=== PATIENT | male | born 1935 | race Caucasian/White ===

== ENCOUNTER 2016-02-17 12:47 | Observation (INO) | payer OTHER ==
[~2016-02-17] VITALS: Ht 190.5 cm; Wt 135.4 kg
[~2016-02-17 12:47] MED LIST: AMLO-110 PO; ASPCH81X PO; ATOR-26 PO; CARV12.52 PO; ERGO1CAP35 PO; FURO80TA63 PO; LISI40TA PO; NVLGI7030 SC; POTA20TA16 PO; SPIR25TA PO; SUCR1TAB29 PO; TRAZ50TA35 PO; WARF10TA PO; ZOLP10TA PO
[2016-02-17] MEDS ORDERED: MIRT15TA3 PO (13:40)
[2016-02-17 13:51] LABS: BASO % 0.2 %; BASO ABS # 0.02 K/uL (0-0.2); COMPLETE YES; EOS % 1.5 %; IG% 0.2 %; LYMPH % 8.9 %; LYMPH ABS # 0.97 K/uL (1.2-3.4); MEAN CELL VOLUME 92.3 fL (80-100); MEAN CORPUSCULAR HEMOGLOBIN 30.8 pg (25-34); MEAN CORPUSCULAR HGB CONC 33.3 g/dl (32-36); MEAN PLATELET VOLUME 10.2 fL (7.4-10.4); MONO % 10.2 %; PLATELET COUNT 148 K/uL (130-400); WHITE BLOOD COUNT 10.91 K/uL (4.8-10.8)
--- NOTE | 2016-02-17 14:00 | EMERGENCY ROOM VISIT NOTE ---
ED Visit Note First contact with patient: 13:24 I have personally seen and evaluated the patient with the physician assistant food service director. I agree with the diagnostic/management decisions and have personally been involved in these decisions and agree with the diagnosis.
[2016-02-17 14:14] LABS: INR 1.8 (0.9-1.1); PARTIAL THROMBOPLASTIN RATIO 1.4; PROTHROMBIN TIME (PATIENT) 19.6 SECONDS (9.0-12.0)
--- NOTE | 2016-02-17 14:17 | DIAGNOSTIC IMAGING REPORT ---
CHEST ONE VIEW PORTABLE HISTORY: left arm/jaw pain COMPARISON: Chest 05/24/2012. FINDINGS: The heart remains moderately enlarged. There are poststernotomy changes. No pleural effusions. No pneumothorax. No focal lung consolidations to suggest pneumonia. Mild interstitial and vascular thickening consistent with developing pulmonary edema. IMPRESSION: Cardiomegaly with mild interstitial pulmonary edema. Electronically signed by: Bandar Belle M.D. 02/17/2016 2:15 PM
[2016-02-17 14:25] LABS: ALB/GLOB RATIO 0.8 (0.9-2); BUN/CREATININE RATIO 15.9 (10-20); CALCIUM 9.1 mg/dl (8.5-10.1); POTASSIUM 4.8 mmol/L (3.5-5.1)
[2016-02-17 15:09] LABS: CKMB/CK RATIO 1.8 (0-3.0)
--- NOTE | 2016-02-17 15:55 | DIAGNOSTIC IMAGING REPORT ---
LEFT SHOULDER MIN 2 VIEWS ROUTINE CLINICAL HISTORY: Left shoulder pain. COMPARISON: None FINDINGS: Incidental note is made of median sternotomy wires and mediastinal surgical clips. Alignment of the left shoulder is anatomic. There is no acute fracture. There is mild glenohumeral joint arthritis and moderate AC joint arthritis. IMPRESSION: 1. No acute fracture or dislocation of the left shoulder. 2. Moderate AC joint arthritis and mild glenohumeral joint arthritis. Electronically signed by: Nikko Mathur M.D. 02/17/2016 3:53 PM
--- NOTE | 2016-02-17 15:55 | DIAGNOSTIC IMAGING REPORT ---
RIGHT HIP UNILATERAL 2 VIEWS CLINICAL HISTORY: right hip pain Right pain COMPARISON: None. DISCUSSION: Considerable degenerative change with virtual complete loss right hip joint space. Sclerosis of the articular services. Potential slightly impacted subcapital fracture versus artifact. No evidence for acetabular protrusion. There is no evidence for soft tissue swelling. IMPRESSION: Artifact versus slightly impacted subcapital fracture. Degenerative change. CT study is suggested as follow-up. Electronically signed by: Andrew Cherry M.D. 02/17/2016 3:53 PM
[2016-02-17] MEDS ORDERED: NITROGLYCERIN 0.4 MG SL PER TAB CHARGE SL PRN (16:00)
[2016-02-17] MEDS ORDERED: GLUCOSE 10 TABS/TUBE PO PRN ×2 (16:00→17:00)
[2016-02-17] MEDS ORDERED: GLUCAGON FOR INJ 1 MG VIAL SQ PRN ×2 (16:00→17:00)
[2016-02-17] MEDS ORDERED: GLUCOSE 40% GEL 15 GM TUBE PO PRN ×2 (16:00→17:00)
[2016-02-17] MEDS ORDERED: ONDANSETRON INJ 2 MG/ML 2 ML VIAL IV PRN (16:00)
[2016-02-17] MEDS ORDERED: ACETAMINOPHEN 325 MG TAB PO PRN (16:00)
[2016-02-17] MEDS ORDERED: DEXTROSE 50% 50 ML SYR IV PRN ×2 (16:00→17:00)
[2016-02-17] MEDS ORDERED: ACETAMINOPHEN 325 MG TAB ONE (16:09)
[2016-02-17] MEDS ORDERED: PHARMACY GLYCEMIC MGMT CONSULT PRN (16:15)
[2016-02-17] MEDS ORDERED: TRAMADOL HCL 50 MG TAB PO PRN (16:30)
[2016-02-17] MEDS ORDERED: LIDODERM (LIDOCAINE) PATCH 5% TD STA (16:53)
--- NOTE | 2016-02-17 16:56 | EMERGENCY ROOM VISIT NOTE ---
History First contact with patient: 13:24 Chief Complaint: CARDIAC ASSESSMENT Stated Complaint: PAIN ALL OVER Nursing Triage Summary: c/o pain in the left arm, left jaw times a few days denies chest pain, additional pain in the right hip pt hx of alycia bypass a-fib denies sob other then his normal History of Present Illness The patient is a 80 year old male who presents to the Emergency Room with complaints of jaw, arm and hip pain. The patient reports that he has had a right hip pain for a few weeks. He has been able to walk on the hip but states there has been imagining pain when he walks. He does report that he also has bad knees. Most recently, the patient has developed pain in his left side over the past 2 days. He reports that he has had pain in his left jaw, left shoulder and radiating down the left arm. He reports that he feels his arm is weak secondary to the pain. The pain began suddenly 2 days ago. The pain seems to be worse at night when he is trying to sleep. He denies any chest pain , back pain, abdominal pain, nausea or vomiting. He denies any shortness of breath. He denies any numbness. The patient has a history of a 5 vessel coronary bypass. He is a diabetic. He has a history of atrial fibrillation and is on Coumadin. Review of Systems A complete 10-point Review of Systems was discussed with the patient, with pertinent positives and negatives listed in the History of Present Illness. All remaining Review of Systems questions can be considered negative unless otherwise specified. 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 Family History No pertinent family history Social History Smoking Status: Former Smoker Marital Status: Housing Status: lives alone Occupation Status: retired Current/Historical Medications Scheduled Amlodipine (Norvasc), 5 MG PO QAM Aspirin (Aspirin Chewable), 81 MG PO QAM Atorvastatin (Lipitor), 80 MG PO QPM Carvedilol (Coreg), 12.5 MG PO BID Ergocalciferol (Vitamin D Cap), 50,000 INTER.UNIT PO MONTHLY Furosemide (Lasix), 40 MG PO QPM Furosemide (Lasix), 80 MG PO QAM Insulin Aspart 70/30 (Novolog Mix 70/30), 60 UNITS SC QID Lisinopril (Zestril), 40 MG PO QAM Mirtazapine (Remeron), 15 MG PO HS Omeprazole (Prilosec), 20 MG PO BID Potassium Ext Rel (Klor-Con), 20 MEQ PO BID Spironolactone (Aldactone), 0.5 TAB PO QAM Sucralfate (Carafate), 1 GM PO QID Trazodone Hcl (Trazodone), 50 MG PO HS Warfarin Sodium (Coumadin), 10 MG PO QPM Scheduled PRN Nitroglycerin (Nitrostat), 0.4 MG UT PRN PRN for Chest Pain Allergies Coded Allergies: NO KNOWN DRUG ALLERGIES (Verified Allergy, Unknown, ., 07/17/15) Physical Exam Vital Signs Date Time Temp Pulse Resp B/P Pulse Ox O2 Delivery O2 Flow Rate FiO2 02/17/16 16:10 134/84 02/17/16 15:52 81 27 02/17/16 15:22 84 23 94 02/17/16 15:01 145/75 02/17/16 14:52 72 23 95 02/17/16 14:22 70 23 93 02/17/16 14:17 80 26 92 02/17/16 13:47 82 26 93 02/17/16 13:17 86 20 95 02/17/16 13:05 93 02/17/16 13:05 36.7 79 24 139/85 93 Room Air 02/17/16 13:00 74 02/17/16 12:56 93 Room Air 02/17/16 12:51 139/85 Physical Exam VITALS: Vitals are noted on the nurse's note and reviewed by myself. Vital signs stable. GENERAL: This is an 80-year-old male, in no acute distress, nondiaphoretic, well -developed well-nourished. EYES: Pupils equal round and reactive to light and accommodation. Extraocular movements intact. NOSE: Patent, turbinates without inflammation or discharge. No sinus tenderness. MOUTH: Mucous membranes moist. Tonsils are not enlarged. Pharynx without erythema or exudate. NECK: Supple without nuchal rigidity. No cervical spine tenderness. HEART: Irregularly irregular rhythm. 2/6 systolic murmur. LUNGS: Clear to auscultation bilaterally without wheezes, rales or rhonchi. No retractions or accessory muscle use. ABDOMEN: Soft, nontender to palpation. MUSCULOSKELETAL: Tenderness to palpation of the right lateral hip. There is minimal tenderness over the anterior left shoulder. Strength 5/5 throughout. NEURO: Patient was alert and oriented to person place and time. Medical Decision & Procedures ER Provider Diagnostic Interpretation: CHEST ONE VIEW PORTABLE HISTORY: left arm/jaw pain COMPARISON: Chest 05/24/2012. FINDINGS: The heart remains moderately enlarged. There are poststernotomy changes. No pleural effusions. No pneumothorax. No focal lung consolidations to suggest pneumonia. Mild interstitial and vascular thickening consistent with developing pulmonary edema. IMPRESSION: Cardiomegaly with mild interstitial pulmonary edema. Laboratory Results 02/17/16 13:20 Red Blood Count 3.90, Mean Corpuscular Volume 92.3, Mean Corpuscular Hemoglobin 30.8, Mean Corpuscular Hemoglobin Concent 33.3, Mean Platelet Volume 10.2, Neutrophils (%) (Auto) 79.0, Lymphocytes (%) (Auto) 8.9, Monocytes (%) (Auto) 10.2, Eosinophils (%) (Auto) 1.5, Basophils (%) (Auto) 0.2, Neutrophils # (Auto ) 8.63, Lymphocytes # (Auto) 0.97, Monocytes # (Auto) 1.11, Eosinophils # (Auto ) 0.16, Basophils # (Auto) 0.02 02/17/16 13:20 Test 02/17/16 13:20 02/17/16 13:47 White Blood Count 10.91 K/uL (4.8-10.8) Red Blood Count 3.90 M/uL (4.7-6.1) Hemoglobin 12.0 g/dL (14.0-18.0) Hematocrit 36.0 % (42-52) Mean Corpuscular Volume 92.3 fL (80-100) Mean Corpuscular Hemoglobin 30.8 pg (25-34) Mean Corpuscular Hemoglobin Concent 33.3 g/dl (32-36) Platelet Count 148 K/uL (130-400) Mean Platelet Volume 10.2 fL (7.4-10.4) Neutrophils (%) (Auto) 79.0 % Lymphocytes (%) (Auto) 8.9 % Monocytes (%) (Auto) 10.2 % Eosinophils (%) (Auto) 1.5 % Basophils (%) (Auto) 0.2 % Neutrophils # (Auto) 8.63 K/uL (1.4-6.5) Lymphocytes # (Auto) 0.97 K/uL (1.2-3.4) Monocytes # (Auto) 1.11 K/uL (0.11-0.59) Eosinophils # (Auto) 0.16 K/uL (0-0.5) Basophils # (Auto) 0.02 K/uL (0-0.2) RDW Standard Deviation 50.9 fL (36.4-46.3) RDW Coefficient of Variation 15.1 % (11.5-14.5) Immature Granulocyte % (Auto) 0.2 % Immature Granulocyte # (Auto) 0.02 K/uL (0.00-0.02) Prothrombin Time 19.6 SECONDS (9.0-12.0) Prothromb Time International Ratio 1.8 (0.9-1.1) Activated Partial Thromboplast Time 37.5 SECONDS (21.0-31.0) Partial Thromboplastin Ratio 1.4 Anion Gap 10.0 mmol/L (3-11) Est Creatinine Clear Calc Drug Dose 44.0 ml/min Estimated GFR () 35.5 Estimated GFR (Non- 30.6 BUN/Creatinine Ratio 15.9 (10-20) Calcium Level 9.1 mg/dl (8.5-10.1) Total Bilirubin 0.8 mg/dl (0.2-1) Aspartate Amino Transf (AST/SGOT) 12 U/L (15-37) Alanine Aminotransferase (ALT/SGPT) 22 U/L (12-78) Alkaline Phosphatase 85 U/L (45-117) Total Creatine Kinase 44 U/L (39-308) Creatine Kinase MB 0.8 ng/ml (0.5-3.6) Creatine Kinase MB Ratio 1.8 (0-3.0) Total Protein 7.7 gm/dl (6.4-8.2) Albumin 3.4 gm/dl (3.4-5.0) Globulin 4.3 gm/dl (2.5-4.0) Albumin/Globulin Ratio 0.8 (0.9-2) Bedside Troponin I 0.010 ng/ml (0-0.045) Medications Administered Medications (Trade) Dose Ordered Sig/Aileen Route Start Time Stop Time Status Last Admin Dose Admin Acetaminophen (Tylenol Tab) 650 mg STK-MED ONCE .ROUTE 02/17/16 16:09 02/17/16 16:10 DC 02/17/16 16:09 650 MG ECG Indication: back/shoulder pain Rate (beats per minute): 72 Rhythm: atrial fibrillation Findings: no acute ischemic change Medical Decision Differential diagnosis includes acute coronary syndrome, pulmonary embolism, pneumothorax, pericarditis, myocarditis, endocarditis, anxiety, musculoskeletal pain, GERD, costochondritis, among others. The patient was evaluated as above. Labs were drawn and IV access was obtained. The patient was placed on the trench trimmer fine. Imaging studies were performed and read by radiology as above. The patient declined any analgesics. The patient was reassessed multiple times during their stay in the emergency department and remained in stable condition. The patient is an 80-year-old male with significant cardiac history who presents today complaining of left jaw and arm pain as well as right hip pain. EKG showed atrial fibrillation which is normal for the patient. Labs revealed a minimal leukocytosis and no significant anemia. Creatinine was elevated at 2.0 which appears to be baseline for the patient. Troponin was not elevated. Chest x-ray showed no acute process. I do feel that the patient's symptoms may be musculoskeletal in nature, however given his cardiac history I do feel it would be reasonable for him to be admitted overnight. I spoke with the patient , he did state that he would prefer to be admitted at this time. I ordered right hip x-ray and left shoulder x-ray which were pending at the time of admission. I spoke with Benrice Banerjee, [facility] hospitalist, who agreed to evaluate the patient. The patient was independently evaluated by Dr. Foley, ED attending physician, who agreed with my assessment and treatment plan. Impression Primary Impression: Jaw pain Departure Information Dispostion Admitted as an inpatient Condition GOOD Referrals Jennifer Ryder M.D. (PCP) Patient Instructions A Signature Page, [facility]
--- NOTE | 2016-02-17 17:00 | DIAGNOSTIC IMAGING REPORT ---
CT OF THE . CT DOSE: 1225.10 mGy.cm HISTORY: Pain R/O FRACTURE Right TECHNIQUE: Multiaxial CT images of the right hip were performed and reformatted in the sagittal and coronal plane without the use of contrast. COMPARISON: None. FINDINGS: Severe degenerative change of the right hip. Peripheral osteophytic reaction throughout. Virtual loss of the joint space with sclerosis of the articular services as well as acetabular services. No evidence for fracture. No evidence for acetabular protrusion. IMPRESSION: Severe degenerative change. No evidence for fracture. Electronically signed by: Andrew Cherry M.D. 02/17/2016 4:58 PM
[2016-02-17] MEDS ORDERED: IV FLUIDS COMPLETED PRN (19:45)
[2016-02-17 19:53] LABS: CKMB/CK RATIO 2.7 (0-3.0)
--- NOTE | 2016-02-17 20:42 | Pharmacy Progress Note ---
Glycemic Control Intl Consult Date of Service Feb 17, 2016. Scope Glycemic Pharmacist consulted by Dr Nolan on 02/17/16 for glycemic control and to write orders per [facility] inpatient glycemic control protocol Objective Weight (Kilograms): 137.000 Accuchecks BSG (last 24hrs): Test 02/17/16 13:20 Random Glucose 275 mg/dl (70-99) Laboratory Data (last 24hrs) Test 02/17/16 13:20 Anion Gap 10.0 mmol/L BUN/Creatinine Ratio 15.9 Blood Urea Nitrogen 32 mg/dl Creatinine 2.00 mg/dl Potassium Level 4.8 mmol/L Sodium Level 138 mmol/L White Blood Count 10.91 K/uL Red Blood Count 3.90 M/uL Hemoglobin 12.0 g/dL Hematocrit 36.0 % Mean Corpuscular Volume 92.3 fL Mean Corpuscular Hemoglobin 30.8 pg Mean Corpuscular Hemoglobin Concent 33.3 g/dl Platelet Count 148 K/uL Mean Platelet Volume 10.2 fL Neutrophils (%) (Auto) 79.0 % Lymphocytes (%) (Auto) 8.9 % Monocytes (%) (Auto) 10.2 % Eosinophils (%) (Auto) 1.5 % Basophils (%) (Auto) 0.2 % Neutrophils # (Auto) 8.63 K/uL Lymphocytes # (Auto) 0.97 K/uL Monocytes # (Auto) 1.11 K/uL Eosinophils # (Auto) 0.16 K/uL Basophils # (Auto) 0.02 K/uL HbA1c 01/21/16 Hgb A1c 6.7% per [facility] records Recent Pertinent Medications Outpatient Anti-diabetic Regimen: * Novolog 70%/30% 60 units achs per med rec; 60 units w/breakfast and supper, 50 units w/lunch, up to a maximum of 250 units/day (per [facility] records) * A1c = 6.7 % 01/21/16 The patient is currently receiving: * Basal insulin: none * Correctional Insulin: Novolog Correction per scale ACHS Goal Range: Low 140 mg/dL - High 180 mg/dL Correction Factor: 25 mg/dL/unit * Prandial insulin: Per carb ratio of 1 unit per 20 grams CHO consumed * Oral Agents: none Risk Factors for Insulin Resistance: * Steroids: no * Infection: no * Pressors: no * IVF: no * Recent Surgery: no * Diet: type 2 diabetic AHA thin liquids * Mechanical Ventilation: no Assessment & Plan ASSESSMENT: * ADA & AACE recommend a goal blood sugar range 140-180 mg/dl for the majority of critically ill & non-critically ill patients. However, more stringent targets may be selected in individual cases. * 80 yo type 2 diabetic well-controlled on large doses of Novolog Mix (up to 250 units/day). Will change to Lantus and Novolog, since it is more difficult to titrate mixed insulins. Will start basal insulin with ~20% less Lantus and adjust as needed, and add fairly tight Novolog correction and carb ratio due to his insulin resistance. PLAN FOR INPATIENT GLYCEMIC CONTROL: * Basal insulin with LANTUS 40 units SQ BID * Correctional Insulin with NOVOLOG per scale ACHS or Q6hrs while NPO * Goal Range: Low 120 mg/dL - High 160 mg/dL * Correction Factor: 10 mg/dL/unit * Nutritional / Prandial insulin per carb ratio of 1 unit per 5 grams CHO consumed * Please note that the plan above was derived based on current level of insulin resistance and hospital stress. These recommendations are appropriate for inpatient admission only. Plan of care upon discharge will need to be reassessed to avoid potential outpatient hypo/hyperglycemia. Thank you.
[2016-02-17 21:02] VITALS: Ht 190.5 cm; Wt 135.4 kg
--- NOTE | 2016-02-17 21:16 | DIAGNOSTIC IMAGING REPORT ---
MRI left shoulder LEFT UPPER EXT JOINT WITHOUT CLINICAL HISTORY: R/O FRACTURE, LIGAMENT/TENDON TEAR pain TECHNIQUE: Multiaxial MRI acquisition COMPARISON STUDY: None FINDINGS: Limited study technically due to patient motion. Small amount of fluid within the acromioclavicular joint. Moderate hypertrophic degenerative change of the acromioclavicular joint. No well-defined acute bony abnormality. Structures the rotator cuff indicate a probable full-thickness tear of the anterior and/or leading-edge of the supraspinatus. Biceps tendon appear to be intact within the bicipital groove. There is a small amount of fluid within the subacromial space. There are findings of soft tissue contusions appear to clavicle. No evidence for musculotendinous retraction. Glenoid labrum is grossly intact. IMPRESSION: 1. Limited study due to patient motion. 2. No acute bony abnormality. 3. Mild degenerative change throughout. 4. Hypertrophic change acromioclavicular joint with a mild amount of contained fluid. 5. Mild fluid within the subdeltoid space. 6. Probable focal tear anterior and/or leading-edge of the supraspinatus with evidence for additional mid substance tendinopathy. Electronically signed by: Andrew Cherry M.D. 02/17/2016 9:14 PM
[2016-02-17] MEDS: INSULIN ASPART 100 UNITS/ML 3 ML PEN SC SCH ×2 (21:24→21:34)
[2016-02-17] MEDS: SUCRALFATE 1 GM TAB PO SCH ×2 (21:24→21:27)
[2016-02-17] MEDS: WARFARIN SOD 5 MG TAB PO SCH (21:27)
[2016-02-17] MEDS: FUROSEMIDE 40 MG TAB PO SCH (21:28)
[2016-02-17] MEDS: POTASSIUM CHLORIDE 20 MEQ TABCR PO SCH (21:28)
[2016-02-17] MEDS: MIRTAZAPINE TAB 15 MG TAB PO SCH (21:28)
[2016-02-17] MEDS: CARVEDILOL 12.5 MG TAB PO SCH (21:28)
[2016-02-17] MEDS: PANTOprazole SOD 40 MG TAB PO SCH (21:30)
[2016-02-17] MEDS: INSULIN GLARGINE SOLOSTAR 100 UNITS/ML 3 ML PEN SC SCH (21:33)
--- NOTE | 2016-02-17 22:22 | History and Physical ---
History & Physical Date & Time of Service: Feb 17, 2016 at 22:14 Chief Complaint: Chest Pain Primary Care Physician: Jennifer Ryder M.D. History of Present Illness Source: patient, clinic records, hospital records 80 year old male with history of CAD/CABG, A fib, DM, HTN, CKD 3, and other problems noted below presenting with left shoulder and right hip pain x 2 days. Patient states that 2 nights ago, he woke up with severe left shoulder pain and right hip pain- to the point that he cannot move his left arm nor ambulate properly. Pain is sharp, stabbing, severe. He denies any history of falls, trauma, lifting. The pain persisted and he has not tried any medication yet. He then went to the ED for evaluation. At the ED, left shoulder xray did not show a fracture and right hip xray showed possible fracture. Cardiac markers negative and EKG did not show any signs of acute ischemia. On my exam ,patient is awake, alert, pleasant. States his pain is severe. NO chest pain, dyspnea, palpitations, dizziness, nausea. No other symptoms. 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 (4) Coronary artery bypass grafting Status: Resolved (5) Deep venous thrombosis Status: Resolved (6) Diabetes mellitus Status: Chronic (7) Hiatal hernia with gastroesophageal reflux disease Status: Chronic (8) History of - pulmonary embolus Status: Chronic (9) History of adenomatous polyp of colon Status: Chronic (10) Hyperlipidemia Status: Chronic (11) Pulmonary embolism Status: Resolved (12) Replacement of total knee joint Status: Resolved Family History No pertinent family history Social History Smoking Status: Former Smoker Marital Status: Occupational Status: retired Immunizations History of Influenza Vaccine: Yes Influenza Vaccine Date: Nov 10, 2014 History of Tetanus Vaccine?: Yes Tetanus Immunization Date: Sep 10, 2008 History of Pneumococcal: Yes Pneumococcal Date: Feb 27, 2014 History of Hepatitis B Vaccine: Unknown Multi-Drug Resistant Organisms History of MDRO: No Allergies Coded Allergies: NO KNOWN DRUG ALLERGIES (Verified Allergy, Unknown, ., 07/17/15) Home Medications Scheduled Amlodipine (Norvasc), 5 MG PO QAM Aspirin (Aspirin Chewable), 81 MG PO QAM Atorvastatin (Lipitor), 80 MG PO QPM Carvedilol (Coreg), 12.5 MG PO BID Ergocalciferol (Vitamin D Cap), 50,000 INTER.UNIT PO MONTHLY Furosemide (Lasix), 40 MG PO QPM Furosemide (Lasix), 80 MG PO QAM Insulin Aspart 70/30 (Novolog Mix 70/30), 60 UNITS SC QID Lisinopril (Zestril), 40 MG PO QAM Mirtazapine (Remeron), 15 MG PO HS Omeprazole (Prilosec), 20 MG PO BID Potassium Ext Rel (Klor-Con), 20 MEQ PO BID Spironolactone (Aldactone), 0.5 TAB PO QAM Sucralfate (Carafate), 1 GM PO QID Trazodone Hcl (Trazodone), 50 MG PO HS Warfarin Sodium (Coumadin), 10 MG PO QPM Scheduled PRN Nitroglycerin (Nitrostat), 0.4 MG UT PRN PRN for Chest Pain Review of Systems Constitutional- no fever; no weight loss Eyes- no acute visual changes ENT- no sinus drainage; no pharyngitis Pulmonary- no cough, no wheezing, no shortness of breath Cardiac- no chest pain, no palpitations, no orthopnea, no dependent edema GI- no nausea, no vomiting, no diarrhea, no melena, no hematochezia - no dysuria, no hematuria Musculoskeletal- (+) as noted above Derm- no rashes, no new skin lesions, no changing skin lesions Hematologic- no unusual bruising, no unusual bleeding Lymphatics- no adenopathy Endocrine- no polyuria or polydipsia; no heat or cold intolerance Neuro- no headaches, no focal neurologic symptoms Psych- no anxiety, no depression Physical Exam Vital Signs Date Time Temp Pulse Resp B/P Pulse Ox O2 Delivery O2 Flow Rate FiO2 02/17/16 21:02 Room Air 02/17/16 18:58 36.7 80 25 137/73 90 02/17/16 18:45 80 25 90 02/17/16 18:29 137/73 02/17/16 18:15 82 28 90 02/17/16 18:05 88 20 167/79 94 Room Air 02/17/16 18:04 167/79 02/17/16 17:58 106/79 02/17/16 17:45 88 29 02/17/16 17:30 127/53 02/17/16 17:15 76 23 93 02/17/16 17:10 86 24 146/70 95 Room Air 02/17/16 17:02 92 02/17/16 16:59 146/70 02/17/16 16:29 157/65 02/17/16 16:15 90 32 02/17/16 16:10 134/84 02/17/16 15:52 81 27 02/17/16 15:22 84 23 94 02/17/16 15:01 145/75 02/17/16 14:52 72 23 95 02/17/16 14:22 70 23 93 02/17/16 14:17 80 26 92 02/17/16 13:47 82 26 93 02/17/16 13:17 86 20 95 02/17/16 13:05 93 02/17/16 13:05 36.7 79 24 139/85 93 Room Air 02/17/16 13:00 74 02/17/16 12:56 93 Room Air 02/17/16 12:51 139/85 General Appearance: WD/WN, no apparent distress Head: normocephalic, atraumatic Eyes: normal inspection, PERRL, EOMI, sclerae normal ENT: normal ENT inspection, hearing grossly normal, TMs normal, pharynx normal Neck: supple, no adenopathy, thyroid normal, no JVD, trachea midline Respiratory/Chest: chest non-tender, lungs clear, normal breath sounds, no respiratory distress, no accessory muscle use Cardiovascular: no JVD, no murmur, normal peripheral pulses, + irregularly irregular Abdomen/GI: normal bowel sounds, non tender, soft, no organomegaly Back: normal inspection, no CVA tenderness Extremities/Musculoskelatal: no pedal edema, + pertinent finding ((+) severe tenderness on the left shoulder, poor ROM due to pain, no swelling) Neurologic/Psych: crystal evaluator II-XII nml as tested, no motor/sensory deficits, alert, normal mood/affect, normal reflexes, oriented x 3 Skin: normal color, warm/dry, no rash Lymphatic: no adenopathy Diagnostics Laboratory Results Results Past 24 Hours Test 02/17/16 13:20 02/17/16 13:47 02/17/16 19:10 02/17/16 21:17 Range/Units White Blood Count 10.91 4.8-10.8 K/uL Red Blood Count 3.90 4.7-6.1 M/uL Hemoglobin 12.0 14.0-18.0 g/dL Hematocrit 36.0 42-52 % Mean Corpuscular Volume 92.3 80-100 fL Mean Corpuscular Hemoglobin 30.8 25-34 pg Mean Corpuscular Hemoglobin Concent 33.3 32-36 g/dl Platelet Count 148 130-400 K/uL Mean Platelet Volume 10.2 7.4-10.4 fL Neutrophils (%) (Auto) 79.0 % Lymphocytes (%) (Auto) 8.9 % Monocytes (%) (Auto) 10.2 % Eosinophils (%) (Auto) 1.5 % Basophils (%) (Auto) 0.2 % Neutrophils # (Auto) 8.63 1.4-6.5 K/uL Lymphocytes # (Auto) 0.97 1.2-3.4 K/uL Monocytes # (Auto) 1.11 0.11-0.59 K/uL Eosinophils # (Auto) 0.16 0-0.5 K/uL Basophils # (Auto) 0.02 0-0.2 K/uL RDW Standard Deviation 50.9 36.4-46.3 fL RDW Coefficient of Variation 15.1 11.5-14.5 % Immature Granulocyte % (Auto) 0.2 % Immature Granulocyte # (Auto) 0.02 0.00-0.02 K/uL Prothrombin Time 19.6 9.0-12.0 SECONDS Prothromb Time International Ratio 1.8 0.9-1.1 Activated Partial Thromboplast Time 37.5 21.0-31.0 SECONDS Partial Thromboplastin Ratio 1.4 Sodium Level 138 136-145 mmol/L Potassium Level 4.8 3.5-5.1 mmol/L Chloride Level 104 98-107 mmol/L Carbon Dioxide Level 24 21-32 mmol/L Anion Gap 10.0 3-11 mmol/L Blood Urea Nitrogen 32 7-18 mg/dl Creatinine 2.00 0.60-1.40 mg/dl Est Creatinine Clear Calc Drug Dose 44.0 ml/min Estimated GFR () 35.5 Estimated GFR (Non- 30.6 BUN/Creatinine Ratio 15.9 10-20 Random Glucose 275 70-99 mg/dl Calcium Level 9.1 8.5-10.1 mg/dl Total Bilirubin 0.8 0.2-1 mg/dl Aspartate Amino Transf (AST/SGOT) 12 15-37 U/L Alanine Aminotransferase (ALT/SGPT) 22 12-78 U/L Alkaline Phosphatase 85 45-117 U/L Total Creatine Kinase 44 48 39-308 U/L Creatine Kinase MB 0.8 1.3 0.5-3.6 ng/ml Creatine Kinase MB Ratio 1.8 2.7 0-3.0 Total Protein 7.7 6.4-8.2 gm/dl Albumin 3.4 3.4-5.0 gm/dl Globulin 4.3 2.5-4.0 gm/dl Albumin/Globulin Ratio 0.8 0.9-2 Bedside Troponin I 0.010 0-0.045 ng/ml Troponin I 0.075 0-0.045 ng/ml Bedside Glucose 195 70-99 mg/dl Diagnostic Radiology per H&P EKG a fib, HR 72, no signs of acute ischemia/infarct Impression Assessment and Plan 80 year old male with history of CAD/CABG, A fib, DM, HTN, CKD 3, and other problems noted below presenting with left shoulder and right hip pain x 2 days. LEFT SHOULDER AND RIGHT HIP PAIN check MRI and CT to r/o Fracture, Tears PRN Tramadol, Valier, Morphine Lidoderm patch Ortho Consult PT/OT HISTORY OF CAD/CABG check cardiac markers echo continue Co reg, Lisinopril, Aspirin, Coumadin A FIB continue Co reg, Coumadin DM ISS Glycemic consult HTN continue Amlodipine CKD 3 stable SHAUNA on CPAP HISTORY OF PE on coumadin DVT prophylaxis on coumadin FULL CODE Disposition pending Advanced Directives Existing Advance Directive: No Existing Living Will: No Existing Power of Inspector Purchased Parts: No VTE Prophylaxis VTE Risk Assessment Done? Y/N: Yes Risk Level: Moderate
[2016-02-17 23:10] VITALS: BP 125/68; PULSE 77; TEMP 37.7; O2SAT 95
[2016-02-18] VITALS (9 sets, daily range): BP systolic 84–154; BP diastolic 50–79; PULSE 62–83; TEMP 36.7–37.7; O2SAT 93–94
[2016-02-18 01:49] LABS: CKMB/CK RATIO 3.3 (0-3.0)
[2016-02-18] MEDS: HYDROCODONE/ACETAMOPHEN 5/325MG TAB PO PRN ×2 (02:11→09:00)
[2016-02-18 07:32] LABS: BASO % 0.3 %; BASO ABS # 0.03 K/uL (0-0.2); COMPLETE YES; HEMATOCRIT 35.5 % (42-52); IG% 0.1 %; LYMPH % 9.3 %; LYMPH ABS # 0.91 K/uL (1.2-3.4); MEAN CORPUSCULAR HEMOGLOBIN 31.6 pg (25-34); MEAN CORPUSCULAR HGB CONC 34.4 g/dl (32-36); MEAN PLATELET VOLUME 10.2 fL (7.4-10.4); MONO % 14.8 %; NEUT % 73.5 %; PLATELET COUNT 141 K/uL (130-400); RED BLOOD COUNT 3.86 M/uL (4.7-6.1); WHITE BLOOD COUNT 9.81 K/uL (4.8-10.8)
[2016-02-18 07:43] LABS: INR 1.5 (0.9-1.1); PROTHROMBIN TIME (PATIENT) 16.1 SECONDS (9.0-12.0)
[2016-02-18] MEDS ORDERED: PERFLUTREN LIPID MICROSPHERE (DEFINITY) IV ONE (07:51)
[2016-02-18 07:59] LABS: ESTIMATED AVERAGE GLUCOSE 148 mg/dl; HA1C FLAG Normal (Normal)
[2016-02-18 08:05] LABS: BUN/CREATININE RATIO 17.4 (10-20); CALCIUM 8.8 mg/dl (8.5-10.1); CREATININE 1.8 mg/dl (0.60-1.40); MAGNESIUM 2.3 mg/dl (1.8-2.4); POTASSIUM 4.3 mmol/L (3.5-5.1)
[2016-02-18] MEDS: SPIRONOLACTONE 25 MG TAB PO SCH (08:33)
[2016-02-18] MEDS: CARVEDILOL 12.5 MG TAB PO SCH ×2 (08:33→19:45)
[2016-02-18] MEDS: POTASSIUM CHLORIDE 20 MEQ TABCR PO SCH ×2 (08:33→19:46)
[2016-02-18] MEDS: SUCRALFATE 1 GM TAB PO SCH ×4 (08:33→19:45)
[2016-02-18] MEDS: ASPIRIN 81 MG ECTAB PO SCH (08:33)
[2016-02-18] MEDS: AMLODIPINE BESYLATE 5 MG TAB PO SCH (08:33)
[2016-02-18] MEDS: FUROSEMIDE 80 MG TAB PO SCH (08:33)
[2016-02-18] MEDS: PANTOprazole SOD 40 MG TAB PO SCH ×2 (08:33→19:46)
[2016-02-18] MEDS: LISINOPRIL 40 MG TAB PO SCH (08:34)
[2016-02-18] MEDS: INSULIN ASPART 100 UNITS/ML 3 ML PEN SC SCH ×4 (08:36→21:10)
[2016-02-18] MEDS: INSULIN GLARGINE SOLOSTAR 100 UNITS/ML 3 ML PEN SC SCH ×2 (08:37→21:11)
[2016-02-18] MEDS: LIDODERM (LIDOCAINE) PATCH 5% TD SCH (09:00)
[2016-02-18 09:37] LABS: CKMB/CK RATIO 1.9 (0-3.0)
[2016-02-18] MEDS ORDERED: TRIAMCINOLONE ACET 40 MG/ML VIAL IA SCH (11:00)
[2016-02-18] MEDS ORDERED: BUPIVACAINE 0.5 % 5 MG/1 ML MPF 30ML VIAL INFIL SCH (11:00)
[2016-02-18] MEDS ORDERED: KETOROLAC TROMETHAMINE 15 MG/ML VIAL IV. PRN (11:00)
--- NOTE | 2016-02-18 11:26 | ORTHOPEDIC CONSULTATION ---
DATE OF CONSULTATION: 02/18/2016 DATE OF CONSULTATION: 02/18/2016. CHIEF COMPLAINT: From an orthopedic standpoint of left shoulder pain. SECONDARY COMPLAINT: Right hip pain. HISTORY OF PRESENT ILLNESS: Dong is a delightful young gentleman 80 years of age, admitted on 02/17/2016 for chief complaint of chest pain associated left shoulder pain. Two nights ago, he woke up with significant pain with left shoulder, right hip and cannot move this arm, he could not ambulate properly. He was brought via emergency transport to the Emergency Room for evaluation and treatment. He denied any fevers, sweats, chills, falls, trauma, lifting, just persistent unexplained pain. He was seen in the ER, x-rays were obtained demonstrating some degenerative changes of the right hip, CT scan demonstrated more degenerative changes in the right hip but no fracture of shoulder, fairly benign except for some AC joint pain. He is alert, oriented, pleasant gentleman. I think I know him from years and years ago with his children. PAST MEDICAL HISTORY: AFib, hypertension, coronary bypass surgery, DVT, diabetes, hiatal hernia, pulmonary embolus and hyperlipidemia. SOCIAL HISTORY: He is a former smoker, retired. IMMUNIZATIONS: Up to date. ALLERGIES: None known. MEDICATIONS: Scheduled are numerous, they are reviewed. They are not dictated upon. PHYSICAL EXAMINATION: GENERAL: On examination, he is alert, oriented, he is eating. He has difficulty with his left shoulder. He is not as painful as he was yesterday. Seems like it is under control. VITAL SIGNS: Blood pressure 130/80, pulse of 80, temperature 36.7. HEAD, EYES, EARS, NOSE, AND THROAT: Pupils react to light and accommodation. Ears, nose, and throat clear. CHEST: Clear. Normal breath sounds, no distress. CARDIAC: Positive for irregular heart beat. ABDOMEN: Soft, nontender. EXTREMITIES: Demonstrate no edema, some tenderness, decreased range of motion of the left shoulder, tenderness with palpation left shoulder. No significant swelling, no apprehension, no instability. The right hip demonstrates decreased range of motion as well and pain. LABORATORY WORK: Demonstrates white cell count of 10.9, which is essentially normal. Hemoglobin 12.0, glucose was 195. ASSESSMENT: Delightful gentleman with history of coronary artery disease, coronary artery bypass graft, Afib, diabetes, hypertension, obesity, other significant issues along with some in my opinion tendinitis about the left shoulder and some AC joint arthritis, left shoulder along with some arthritis right hip. DISPOSITION: At this point in time, it would be medical and pain management. I probably will inject him in his left shoulder, give him some symptomatic relief from this orthopedic standpoint can either be followed up as an outpatient. I see no acute surgical indications. No acute serious medical problems. We will follow him closely.
--- NOTE | 2016-02-18 11:53 | ORTHOPEDIC CONSULTATION REPORT ---
DATE OF CONSULTATION: 02/18/2016 PATIENT OF: Dr. Villalobos. CHIEF COMPLAINT: Left shoulder pain. HISTORY OF PRESENT ILLNESS: This 80-year-old white male presented through the ED yesterday afternoon with complaints of left shoulder pain. He had a cardiac workup which was unremarkable. He has known atrial fibrillation. Because of the left shoulder pain and questionable radiating to the jaw, he was admitted for observation. The patient states that he has had left shoulder pain for the last 3 days. No specific injury. He denies any falls. Pain is worse with any-attempted motion. He does get night pain. The patient has a history of right total shoulder arthroplasty and did very well with this. He feels it is the same on his left. The patient is a diabetic. He states he had an appointment to see Dr. Sanon today, but because of the hospital admission, he will miss that appointment. Due to insurance reasons, he switched orthopedic practices. He denies any numbness or tingling. He points to the shoulder as his area of discomfort. PAST MEDICAL HISTORY: Significant for atrial fibrillation, hypertension, kidney stones, history of DVT, diabetes, hiatal hernia with GERD, history of PE, history of colon polyps, elevated lipids, and osteoarthritis. PREVIOUS SURGERIES: Total knee arthroplasty, total shoulder arthroplasty, and coronary artery bypass grafting. FAMILY HISTORY: Noncontributory. SOCIAL HISTORY: The patient is retired. . Lives alone. Former smoker. CURRENT MEDICATIONS: Norvasc 5 mg, aspirin 81 mg, Lipitor 80 mg, carvedilol 12.5 mg b.i.d., vitamin D monthly, Lasix 40 mg q.p.m., Lasix 80 mg q.a.m., NovoLog 70-30, insulin, lisinopril 40 mg, Remeron p.o. at bedtime, Prilosec 20 mg p.o. b.i.d., potassium 20 mEq p.o. b.i.d., spironolactone a half tablet p.o. q.a.m., Carafate 1 gram p.o. q.i.d., trazodone 50 mg p.o. at bedtime, Coumadin 10 mg p.o. daily. ALLERGIES: NKDA. REVIEW OF SYSTEMS: Significant for above-stated conditions, otherwise unremarkable. PHYSICAL EXAMINATION: GENERAL: Well-developed, well-nourished elderly white male, in no acute distress. Sitting in a chair. Alert and oriented. SKIN: Warm and dry with fair turgor. No rashes or lesions. No ecchymosis or erythema. No edema. MUSCULOSKELETAL: Left shoulder has no obvious asymmetry or deformity. He has focal pain with palpation, globally around the left shoulder. It is both anterior and posterior as well as over the deltoid. His worst pain is over the anterior glenohumeral joint. Passively, he will abduct to around 95 degrees and forward flex to around 95 degrees. Abduction is limited to around 70 degrees before onset of pain. Full internal rotation against his abdomen. He is able to put his hand on his hip. External rotation of about 10 degrees secondary to pain. No pain with palpation over the AC joint. Strength is 3/5 for resisted motion. Elbow exam is benign. NEUROLOGIC: Gross sensation is intact across the left arm via soft touch. Peripheral pulses are 2+. DATA: Radiographic imaging obtained yesterday shows no acute fracture or dislocation in the left shoulder. He has moderate AC joint arthritis and glenohumeral joint arthritis. MRI imaging of the shoulder was obtained by the medicine service last evening. He has mild degenerative changes throughout the shoulder. Rotator cuff tear is noted with tendinopathy. 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 PLAN: The patient was educated regarding today's findings. Conservative care measures were discussed. Option of cortisone injection was discussed. He would like to proceed. Risks and benefits have been discussed. The [facility] to discuss any further care. He may benefit from physical therapy as an outpatient and may ultimately require total joint replacement on this shoulder as well. CARRI
--- NOTE | 2016-02-18 12:21 | ECHOCARDIOGRAM REPORT ---
*NOTICE TO RECEIVING [employer] This information is strictly Confidential and protected under [place] law. [place] law prohibits you from making any further disclosure of this information unless further disclosure is expressly permitted by the written consent of the person to whom it pertains or is authorized by law. A general authorization for the release of medical or other information is not sufficient for this purpose. Hospital accepts no responsibility if the information is made available to any other person, INCLUDING THE PATIENT. Interpretation Summary * Name: ZAN SANCHEZ Study Date: 02/18/2016 08:26 AM BP: 84/50 mmHg * Patient Location: [facility]\S\[id number]\S\1 HR: 75 * : 1935 (M/d/yyyy) Gender: Male Height: 75 in * Age: 80 yrs Ethnicity: [place] Weight: 302 lb * Ordering Physician: Henri Nolan * Referring Physician: Self, Referred * Performed By: Cassandra Lopez RCS * * Reason For Study: CHEST PAIN * BSA: 2.6 m2 * -- Conclusions -- * No significant change compared to previous study. * Mildly dilated LV chamber size with mild concenttic LVH. * Moderately reduced LV systolic function, EF 40-45%. * The inferior and posterior maddox are severely hypokinetic at the base and midlevel. The remaining left * ventricular wall segments are borderline hypokinetic. * Grade III diastolic dysfunction (restrictive physiology). * Mild mitral regurgitattion. * Severe left atrial enlargement. Procedure Details * A complete two-dimensional transthoracic echocardiogram was performed (2D, M-mode, Doppler and color flow Doppler). * A contrast injection of Definity was performed to improve assessment of LV function. * Contrast was injected into an intravenous site in the left arm. * One vial of Definity ultrasound contrast was diluted in normal saline to a total volume of 10 ml. A total of '2' ml of solution was administered during imaging. * Lot # [id number] of Definity utilized for procedure. * Expiration date 1 JUL 30. * The attending nurse who injected the contrast agent was SUSAN ANDERS, RN. Left Ventricle * The left ventricle is mildly dilated. * There is mild concentric left ventricular hypertrophy. * Left ventricular systolic function is moderately reduced. * Ejection Fraction = 40-45%. * The inferior and posterior maddox are severely hypokinetic at the base and midlevel. The remaining left ventricular wall segments are borderline hypokinetic. Right Ventricle * The right ventricular cavity size is enlarged (proximal parasternal long axis right ventricular outflow tract dimension >3.3 cm). * The right ventricular systolic function is mildly reduced. Atria * The left atrium is severely dilated. * Right atrium not well visualized. * There is no evidence of atrial septal defect, but resolution does not allow assessment for a patent foramen ovale. Mitral Valve * The mitral valve anatomy is normal. * There is no mitral valve stenosis. * There is mild mitral regurgitation. Tricuspid Valve * The tricuspid valve is normal in structure and function. Aortic Valve * The aortic valve is not well visualized. * No hemodynamically significant valvular aortic stenosis. * There is no significant aortic regurgitation. Pulmonic Valve * The pulmonary valve is not well seen, but the Doppler examination is normal without significant regurgitation or stenosis. Great Vessels * Mild aortic root dilatation. Pericardium/Pleural * There is no pericardial effusion. Left Ventricular Diastolic Function * Diastolic dysfunction, Grade III (restrictive pattern), consistent with markedly increased left atrial pressure. MMode 2D Measurements and Calculations IVSd 1.3 cm IVSs 1.6 cm LVIDd 5.5 cm LVIDs 4.5 cm LVPWd 1.5 cm LVPWs 1.5 cm IVS/LVPW 0.89 FS 17.3 % EDV(Teich) 144.5 ml ESV(Teich) 92.8 ml EF(Teich) 35.8 % EDV(cubed) 162.1 ml ESV(cubed) 91.6 ml EF(cubed) 43.5 % % IVS thick 19.6 % % LVPW thick 4.2 % LV mass(C)d 334.8 grams LV mass(C)dI 128.0 grams/m\S\2 LV mass(C)s 295.2 grams LV mass(C)sI 112.9 grams/m\S\2 SV(Teich) 51.7 ml SI(Teich) 19.8 ml/m\S\2 SV(cubed) 70.5 ml SI(cubed) 27.0 ml/m\S\2 Ao root diam 4.2 cm Ao root area 13.7 cm\S\2 LA dimension 6.0 cm LA/Ao 1.4 LVOT diam 2.0 cm LVOT area 3.2 cm\S\2 Doppler Measurements and Calculations MV E max carrie 127.7 cm/sec MV P1/2t max carrie 134.2 cm/sec MV P1/2t 119.3 msec MVA(P1/2t) 1.8 cm\S\2 MV dec slope 329.4 cm/sec\S\2 MV dec time 0.20 sec Ao V2 max 130.5 cm/sec Ao max PG 6.8 mmHg Ao max PG (full) 4.3 mmHg BECKY(V,A) 1.9 cm\S\2 BECKY(V,D) 1.9 cm\S\2 LV V1 max PG 2.5 mmHg LV V1 max 79.3 cm/sec MR max carrie 540.8 cm/sec MR max PG 117.0 mmHg PA V2 max 98.9 cm/sec PA max PG 3.9 mmHg
--- NOTE | 2016-02-18 13:26 | Progress Note ---
Medicine Progress Note Date & Time of Visit: Feb 18, 2016 at 13:24. Subjective seen sitting up in bedside chair, pleasant states shoulder pain and hip pain is about the same no chest pain, dyspnea, nausea, dizziness, palpitations denies other symptoms Objective Last 8 Hrs Date Time Temp Pulse Resp B/P Pulse Ox O2 Delivery O2 Flow Rate FiO2 02/18/16 12:15 Room Air 02/18/16 11:16 37.1 69 20 115/64 93 Room Air 02/18/16 08:32 36.7 83 20 126/68 94 Room Air 02/18/16 07:45 Room Air 02/18/16 06:00 62 20 116/68 65 99/56 67 84/50 Physical Exam: General- oriented x 3,not in distress Eyes- anicteric Neck- no JVD Lungs- clear to auscultation bilaterally Heart- normal rate, irregularly irregular rhythm; no murmurs Abdomen- normal bowel sounds, soft, nontender Extremities- no pretibial edema, no calf tenderness Neuro- alert, oriented x 3; no gross deficits Skin- warm & dry Laboratory Results: Last 24 Hours Test 02/17/16 13:47 02/17/16 19:10 02/17/16 21:17 02/18/16 01:10 Bedside Troponin I 0.010 ng/ml Total Creatine Kinase 48 U/L 57 U/L Creatine Kinase MB 1.3 ng/ml 1.9 ng/ml Creatine Kinase MB Ratio 2.7 3.3 Troponin I 0.075 ng/ml 0.248 ng/ml Bedside Glucose 195 mg/dl Test 02/18/16 07:03 02/18/16 07:57 02/18/16 08:25 02/18/16 11:22 White Blood Count 9.81 K/uL Red Blood Count 3.86 M/uL Hemoglobin 12.2 g/dL Hematocrit 35.5 % Mean Corpuscular Volume 92.0 fL Mean Corpuscular Hemoglobin 31.6 pg Mean Corpuscular Hemoglobin Concent 34.4 g/dl Platelet Count 141 K/uL Mean Platelet Volume 10.2 fL Neutrophils (%) (Auto) 73.5 % Lymphocytes (%) (Auto) 9.3 % Monocytes (%) (Auto) 14.8 % Eosinophils (%) (Auto) 2.0 % Basophils (%) (Auto) 0.3 % Neutrophils # (Auto) 7.21 K/uL Lymphocytes # (Auto) 0.91 K/uL Monocytes # (Auto) 1.45 K/uL Eosinophils # (Auto) 0.20 K/uL Basophils # (Auto) 0.03 K/uL RDW Standard Deviation 49.7 fL RDW Coefficient of Variation 14.8 % Immature Granulocyte % (Auto) 0.1 % Immature Granulocyte # (Auto) 0.01 K/uL Prothrombin Time 16.1 SECONDS Prothromb Time International Ratio 1.5 Sodium Level 138 mmol/L Potassium Level 4.3 mmol/L Chloride Level 105 mmol/L Carbon Dioxide Level 23 mmol/L Anion Gap 10.0 mmol/L Blood Urea Nitrogen 31 mg/dl Creatinine 1.80 mg/dl Est Creatinine Clear Calc Drug Dose 49.3 ml/min Estimated GFR () 40.3 Estimated GFR (Non- 34.8 BUN/Creatinine Ratio 17.4 Random Glucose 154 mg/dl Estimated Average Glucose 148 mg/dl Hemoglobin A1c 6.8 % Calcium Level 8.8 mg/dl Magnesium Level 2.3 mg/dl Bedside Glucose 161 mg/dl 190 mg/dl Total Creatine Kinase 93 U/L Creatine Kinase MB 1.8 ng/ml Creatine Kinase MB Ratio 1.9 Troponin I 0.313 ng/ml Assessment & Plan 80 year old male with history of CAD/CABG, CHF, A fib, DM, HTN, CKD 3, and other problems noted below presenting with left shoulder and right hip pain x 2 days. LEFT SHOULDER AND RIGHT HIP PAIN check MRI and CT to r/o Fracture, Tears: (+) rotator cuff tear, no hip fracture - evaluated by Ortho service, appreciate the recommendations for possible Steroid Injection today - PRN Tramadol, [place], Morphine Lidoderm patch PT/OT HISTORY OF CAD/CABG check cardiac markers: mildly elevated troponin echo: no significant change from previous echo -- no cardiac symptoms check another set of CM at 2pm continue Co reg, Lisinopril, Aspirin, Coumadin A FIB continue Co reg, Coumadin DM ISS Glycemic consult HTN continue Amlodipine CKD 3 stable SHAUNA on CPAP HISTORY OF PE INR 1.5 bridge with lovenox continue coumadin DVT prophylaxis on coumadin FULL CODE Disposition pending needs pt/ot eval Current Inpatient Medications: Current Inpatient Medications Medications (Trade) Dose Ordered Sig/Aileen Route Start Time Stop Time Status Last Admin Dose Admin Acetaminophen (Tylenol Tab) 650 mg Q4H PRN PO 02/17/16 16:00 03/18/16 15:59 Ondansetron HCl (Zofran Inj) 4 mg Q6H PRN IV 02/17/16 16:00 03/18/16 15:59 Nitroglycerin (Nitrostat Tab) 0.4 mg UD PRN SL 02/17/16 16:00 03/18/16 15:59 Insulin Aspart (novoLOG ASPART) SLIDING SCALE If C... ACHS SC 02/17/16 16:00 03/18/16 15:59 02/18/16 12:18 10 UNITS Miscellaneous Information (Consult Glycemic Management Pharmacy) 1 ea UD PRN N/A 02/17/16 16:15 03/18/16 16:14 Tramadol HCl (Ultram Tab) 50 mg Q6H PRN PO 02/17/16 16:30 03/18/16 16:29 Acetaminophen/ Hydrocodone Bitart ([place] 5/325 Tab) 1 tab Q6H PRN PO 02/17/16 16:30 03/02/16 16:29 02/18/16 09:00 1 TAB Morphine Sulfate (MoRPHine SULFATE INJ) 3 mg Q4H PRN IV 02/17/16 16:30 03/02/16 16:29 Lidocaine (Lidoderm Patch 5%) 1 patch QAM TD 02/18/16 09:00 03/19/16 08:59 02/18/16 09:00 1 PATCH Miscellaneous (Remove Lidoderm Patch) 1 ea DAILY@21 N/A 02/17/16 21:00 03/18/16 20:59 Amlodipine Besylate (Norvasc Tab) 5 mg QAM PO 02/18/16 09:00 03/19/16 08:59 02/18/16 08:33 5 MG Aspirin (Ecotrin Tab) 81 mg QAM PO 02/18/16 09:00 03/19/16 08:59 02/18/16 08:33 81 MG Carvedilol (Coreg Tab) 12.5 mg BID PO 02/17/16 21:00 03/18/16 20:59 02/18/16 08:33 12.5 MG Furosemide (Lasix tab) 40 mg DAILY@1800 PO 02/17/16 18:00 03/18/16 17:59 02/17/16 21:28 40 MG Furosemide (Lasix tab) 80 mg DAILY@0800 PO 02/18/16 08:00 03/19/16 07:59 02/18/16 08:33 80 MG Lisinopril (Zestril Tab) 40 mg QAM PO 02/18/16 09:00 03/19/16 08:59 02/18/16 08:34 40 MG Mirtazapine (Remeron Tab) 15 mg HS PO 02/17/16 21:00 03/18/16 20:59 02/17/16 21:28 15 MG Potassium Chloride (Klor-Con Tab) 20 meq BID PO 02/17/16 21:00 03/18/16 20:59 02/18/16 08:33 20 MEQ Spironolactone (Aldactone Tab) 12.5 mg QAM PO 02/18/16 09:00 03/19/16 08:59 02/18/16 08:33 12.5 MG Sucralfate (Carafate Tab) 1 gm QID PO 02/17/16 17:00 03/18/16 16:59 02/18/16 12:17 1 GM Warfarin Sodium (Coumadin Tab) 10 mg SuTuWeThSa@1600 PO 02/17/16 18:05 03/18/16 18:04 02/17/16 21:27 10 MG Pantoprazole Sodium (Protonix Tab) 40 mg BID PO 02/17/16 21:00 03/18/16 20:59 02/18/16 08:33 40 MG Warfarin Sodium (Coumadin Tab) 5 mg MoFr@1600 PO 02/19/16 16:00 03/20/16 15:59 Glucose (Glucose 40% Gel) 15-30 GRAMS 15 GRAMS... UD PRN PO 02/17/16 17:00 03/18/16 16:59 Glucose (Glucose Chew Tab) 4-8 Tablets 4 Tabl... UD PRN PO 02/17/16 17:00 03/18/16 16:59 Dextrose (Dextrose 50% 50ML Syringe) 25-50ML OF 50% DW IV FOR... UD PRN IV 02/17/16 17:00 03/18/16 16:59 Glucagon (Glucagon Inj) 1 mg UD PRN SQ 02/17/16 17:00 03/18/16 16:59 Insulin Glargine (Lantus Solostar Pen) 40 unit BID SC 02/17/16 21:00 03/18/16 20:59 02/18/16 08:37 40 UNIT Miscellaneous (Iv Fluids Completed) 1 ea PRN PRN N/A 02/17/16 19:45 02/16/17 19:44 Ketorolac Tromethamine (Toradol Inj) 15 mg Q6H PRN IV. 02/18/16 11:00 02/23/16 10:59 Enoxaparin Sodium (Lovenox 1 Mg/Kg) 1 ea Q12H SQ 02/18/16 12:45 03/19/16 12:44 UNV
--- NOTE | 2016-02-18 13:49 | OPERATIVE REPORT ---
DATE OF OPERATION: 02/18/2016 PREPROCEDURE DIAGNOSIS: Acromioclavicular joint arthritis, left shoulder. POSTOPERATIVE DIAGNOSIS: Same. PROCEDURE: Include an injection left shoulder of Depo-Medrol and Marcaine. DESCRIPTION OF PROCEDURE: The patient was seen and examined at his bedside here at [facility] room 277. His left shoulder was prepped and draped sterile. I injected left shoulder under sterile technique with Depo-Medrol and Marcaine. He tolerated it well. The needle was withdrawn. A Band-Aid applied. The patient returned to his normal state here in the hospital. I attest to the content of the Intraoperative Record and any orders documented therein. Any exceptio ns are noted below.
[2016-02-18 14:39] LABS: CKMB/CK RATIO 2.1 (0-3.0)
[2016-02-18] MEDS: WARFARIN SOD 5 MG TAB PO SCH (16:00)
[2016-02-18] MEDS: ENOXAPARIN 150 MG/1ML SYR SQ SCH ×2 (16:15→21:11)
[2016-02-18] MEDS: FUROSEMIDE 40 MG TAB PO SCH (17:56)
[2016-02-18] MEDS: MIRTAZAPINE TAB 15 MG TAB PO SCH (19:46)
[2016-02-18] MEDS: MoRPHine SULFATE 4 MG/ML 1 ML CARP\\VIAL IV PRN (19:54)
[2016-02-19] VITALS (12 sets, daily range): BP systolic 119–144; BP diastolic 60–82; PULSE 60–74; TEMP 36.2–37.1; O2SAT 93–100
[2016-02-19 07:06] LABS: BASO % 0.1 %; BASO ABS # 0.01 K/uL (0-0.2); COMPLETE YES; EOS % 0.2 %; HEMATOCRIT 34.3 % (42-52); IG% 0.2 %; LYMPH ABS # 0.76 K/uL (1.2-3.4); MEAN CELL VOLUME 90.5 fL (80-100); MEAN CORPUSCULAR HEMOGLOBIN 30.9 pg (25-34); MEAN CORPUSCULAR HGB CONC 34.1 g/dl (32-36); NEUT % 83.5 %; PLATELET COUNT 161 K/uL (130-400); RED BLOOD COUNT 3.79 M/uL (4.7-6.1); WHITE BLOOD COUNT 10.92 K/uL (4.8-10.8)
[2016-02-19 07:13] LABS: INR 1.4 (0.9-1.1); PROTHROMBIN TIME (PATIENT) 15.5 SECONDS (9.0-12.0)
[2016-02-19] MEDS: SPIRONOLACTONE 25 MG TAB PO SCH (08:40)
[2016-02-19] MEDS: SUCRALFATE 1 GM TAB PO SCH ×4 (08:40→20:45)
[2016-02-19] MEDS: FUROSEMIDE 80 MG TAB PO SCH (08:40)
[2016-02-19] MEDS: CARVEDILOL 12.5 MG TAB PO SCH ×2 (08:41→20:47)
[2016-02-19] MEDS: POTASSIUM CHLORIDE 20 MEQ TABCR PO SCH ×2 (08:41→20:46)
[2016-02-19] MEDS: AMLODIPINE BESYLATE 5 MG TAB PO SCH (08:41)
[2016-02-19] MEDS: PANTOprazole SOD 40 MG TAB PO SCH ×2 (08:41→20:46)
[2016-02-19] MEDS: LISINOPRIL 40 MG TAB PO SCH (08:41)
[2016-02-19] MEDS: ASPIRIN 81 MG ECTAB PO SCH (08:41)
[2016-02-19] MEDS: LIDODERM (LIDOCAINE) PATCH 5% TD SCH (08:41)
[2016-02-19] MEDS: ENOXAPARIN 150 MG/1ML SYR SQ SCH ×2 (08:42→20:52)
[2016-02-19] MEDS: INSULIN ASPART 100 UNITS/ML 3 ML PEN SC SCH ×4 (08:45→20:51)
[2016-02-19] MEDS: INSULIN GLARGINE SOLOSTAR 100 UNITS/ML 3 ML PEN SC SCH ×2 (08:45→20:51)
[2016-02-19 10:47] LABS: BUN/CREATININE RATIO 20.3 (10-20); CALCIUM 8.8 mg/dl (8.5-10.1); MAGNESIUM 2.3 mg/dl (1.8-2.4); POTASSIUM 4.7 mmol/L (3.5-5.1)
[2016-02-19] MEDS: HYDROCODONE/ACETAMOPHEN 5/325MG TAB PO PRN (11:41)
--- NOTE | 2016-02-19 12:37 | Pharmacy Progress Note ---
Glycemic Control: Progress Nt Date of Service Feb 19, 2016. Scope Glycemic Pharmacist consulted by Dr Nolan on 02/17/16 for glycemic control and to write orders per [facility] inpatient glycemic control protocol. Objective Accuchecks BSG (last 24hrs): Test 02/18/16 16:27 02/18/16 20:42 02/19/16 07:32 02/19/16 09:45 Bedside Glucose 140 mg/dl (70-99) 171 mg/dl (70-99) 144 mg/dl (70-99) Random Glucose 212 mg/dl (70-99) Test 02/19/16 11:36 Bedside Glucose 175 mg/dl (70-99) Laboratory Data (last 24hrs) Test 02/19/16 06:40 02/19/16 09:45 White Blood Count 10.92 K/uL Red Blood Count 3.79 M/uL Hemoglobin 11.7 g/dL Hematocrit 34.3 % Mean Corpuscular Volume 90.5 fL Mean Corpuscular Hemoglobin 30.9 pg Mean Corpuscular Hemoglobin Concent 34.1 g/dl Platelet Count 161 K/uL Mean Platelet Volume 10.0 fL Neutrophils (%) (Auto) 83.5 % Lymphocytes (%) (Auto) 7.0 % Monocytes (%) (Auto) 9.0 % Eosinophils (%) (Auto) 0.2 % Basophils (%) (Auto) 0.1 % Neutrophils # (Auto) 9.13 K/uL Lymphocytes # (Auto) 0.76 K/uL Monocytes # (Auto) 0.98 K/uL Eosinophils # (Auto) 0.02 K/uL Basophils # (Auto) 0.01 K/uL Anion Gap 12.0 mmol/L BUN/Creatinine Ratio 20.3 Blood Urea Nitrogen 41 mg/dl Creatinine 2.00 mg/dl Potassium Level 4.7 mmol/L Sodium Level 135 mmol/L HbA1c: Test 02/18/16 07:03 Hemoglobin A1c 6.8 % (4.5-5.6) H Recent Pertinent Medications Outpatient Anti-diabetic Regimen: * NovoLog 70/30 pre-mixed insulin --> up to 250 units/day The patient is currently receiving: * Basal insulin: Lantus 40 units every 12 hours * Correctional Insulin: Novolog Correction per scale ACHS Goal Range: Low 120 mg/dL - High 160 mg/dL Correction Factor: 10 mg/dL/unit * Prandial insulin: Per carb ratio of 1 unit per 5 grams CHO consumed Risk Factors for Insulin Resistance: * Intra-articular Steroid injection 02/18/16 * Diet Assessment & Plan ASSESSMENT: * 80yo T2DM male with adequate outpatient control per recent A1c * Pt is maintained on very high outpatient dosing (up to 250units/day) of premixed basal:prandial insulin. Premixed insulin are not able to be dose titrated for acute situations/PO intake changes, therefore, pt was initiated on SQ basal bolus insulin regimen of Lantus + NovoLog * Patient has been receiving ~ 108 units of insulin per day with adequate control * BSGs ranging 140-190mg/dl over the past 24hrs * No changes need made to regimen at this time. * ADA & AACE recommend a goal blood sugar range 140-180 mg/dl for the majority of critically ill & non-critically ill patients. However, more stringent targets may be selected in individual cases. Will utilize more stringent goal range of 120-160mg/dl based on baseline tight glycemic control. PLAN FOR INPATIENT GLYCEMIC CONTROL: * Continue Basal insulin with LANTUS 40 units SQ BID * Administer 1/2 dose if BSG < 120 mg/dl * Correctional Insulin with NOVOLOG per scale ACHS or Q6hrs while NPO * Goal Range: Low 120 mg/dL - High 140 mg/dL * Correction Factor: 10 mg/dL/unit * Nutritional / Prandial insulin per carb ratio of 1 unit per 5 grams CHO consumed * Please note that the plan above was derived based on current level of insulin resistance and hospital stress. These recommendations are appropriate for inpatient admission only. Plan of care upon discharge will need to be reassessed to avoid potential outpatient hypo/hyperglycemia. Thank you.
[2016-02-19] MEDS: WARFARIN SOD 5 MG TAB PO SCH (17:13)
[2016-02-19] MEDS: FUROSEMIDE 40 MG TAB PO SCH (17:13)
--- NOTE | 2016-02-19 20:25 | Progress Note ---
Medicine Progress Note Date & Time of Visit: Feb 19, 2016 at 20:21. Subjective states he feels somewhat better today less shoulder pain after injection pain about the same on the right hip denies chest pain, dyspnea, dizziness, nausea no other symptoms Objective Last 8 Hrs Date Time Temp Pulse Resp B/P Pulse Ox O2 Delivery O2 Flow Rate FiO2 02/19/16 19:50 36.2 60 20 120/72 100 Room Air 02/19/16 16:00 94 Room Air 02/19/16 15:11 36.8 64 18 119/66 94 Room Air Physical Exam: General- oriented x 3,not in distress Eyes- anicteric Neck- no JVD Lungs- clear to auscultation bilaterally, no rales/wheeze Heart- normal rate, irregularly irregular rhythm; no murmurs Abdomen- normal bowel sounds, soft, nontender Extremities- no pretibial edema, no calf tenderness Neuro- alert, oriented x 3; no gross deficits Skin- warm & dry Laboratory Results: Last 24 Hours Test 02/18/16 20:42 02/19/16 06:40 02/19/16 07:32 02/19/16 09:45 Bedside Glucose 171 mg/dl 144 mg/dl White Blood Count 10.92 K/uL Red Blood Count 3.79 M/uL Hemoglobin 11.7 g/dL Hematocrit 34.3 % Mean Corpuscular Volume 90.5 fL Mean Corpuscular Hemoglobin 30.9 pg Mean Corpuscular Hemoglobin Concent 34.1 g/dl Platelet Count 161 K/uL Mean Platelet Volume 10.0 fL Neutrophils (%) (Auto) 83.5 % Lymphocytes (%) (Auto) 7.0 % Monocytes (%) (Auto) 9.0 % Eosinophils (%) (Auto) 0.2 % Basophils (%) (Auto) 0.1 % Neutrophils # (Auto) 9.13 K/uL Lymphocytes # (Auto) 0.76 K/uL Monocytes # (Auto) 0.98 K/uL Eosinophils # (Auto) 0.02 K/uL Basophils # (Auto) 0.01 K/uL RDW Standard Deviation 48.3 fL RDW Coefficient of Variation 14.7 % Immature Granulocyte % (Auto) 0.2 % Immature Granulocyte # (Auto) 0.02 K/uL Prothrombin Time 15.5 SECONDS Prothromb Time International Ratio 1.4 Sodium Level 135 mmol/L Potassium Level 4.7 mmol/L Chloride Level 101 mmol/L Carbon Dioxide Level 22 mmol/L Anion Gap 12.0 mmol/L Blood Urea Nitrogen 41 mg/dl Creatinine 2.00 mg/dl Est Creatinine Clear Calc Drug Dose 43.9 ml/min Estimated GFR () 35.5 Estimated GFR (Non- 30.6 BUN/Creatinine Ratio 20.3 Random Glucose 212 mg/dl Calcium Level 8.8 mg/dl Magnesium Level 2.3 mg/dl Test 02/19/16 11:36 02/19/16 16:22 Bedside Glucose 175 mg/dl 121 mg/dl Assessment & Plan 80 year old male with history of CAD/CABG, CHF, A fib, DM, HTN, CKD 3, and other problems noted below presenting with left shoulder and right hip pain x 2 days. LEFT SHOULDER AND RIGHT HIP PAIN MRI and CT to r/o Fracture, Tears: (+) rotator cuff tear, no hip fracture - evaluated by Ortho service, appreciate the recommendations s/p Steroid Injection 02/18/16 - PRN Tramadol, [place], Morphine Lidoderm patch PT/OT: recommend rehab bowel regimen ordered HISTORY OF CAD/CABG cardiac markers: mildly elevated troponin troponin stable at 0.2-0.3 echo: no significant change from previous echo -- no cardiac symptoms continue Co reg, Lisinopril, Aspirin, Coumadin A FIB continue Co reg, Coumadin DM ISS Glycemic consult HTN continue Amlodipine CKD 3 stable SHAUNA on CPAP HISTORY OF PE INR 1.4 bridge with lovenox additional 7.5mg coumadin today DVT prophylaxis on coumadin FULL CODE Disposition anticipate discharge to Rehab Current Inpatient Medications: Current Inpatient Medications Medications (Trade) Dose Ordered Sig/Aileen Route Start Time Stop Time Status Last Admin Dose Admin Acetaminophen (Tylenol Tab) 650 mg Q4H PRN PO 02/17/16 16:00 03/18/16 15:59 Ondansetron HCl (Zofran Inj) 4 mg Q6H PRN IV 02/17/16 16:00 03/18/16 15:59 Nitroglycerin (Nitrostat Tab) 0.4 mg UD PRN SL 02/17/16 16:00 03/18/16 15:59 Insulin Aspart (novoLOG ASPART) SLIDING SCALE If C... ACHS SC 02/17/16 16:00 03/18/16 15:59 02/19/16 17:17 10 UNITS Miscellaneous Information (Consult Glycemic Management Pharmacy) 1 ea UD PRN N/A 02/17/16 16:15 03/18/16 16:14 Tramadol HCl (Ultram Tab) 50 mg Q6H PRN PO 02/17/16 16:30 03/18/16 16:29 Acetaminophen/ Hydrocodone Bitart ([place] 5/325 Tab) 1 tab Q6H PRN PO 02/17/16 16:30 03/02/16 16:29 02/19/16 11:41 1 TAB Morphine Sulfate (MoRPHine SULFATE INJ) 3 mg Q4H PRN IV 02/17/16 16:30 03/02/16 16:29 02/18/16 19:54 3 MG Lidocaine (Lidoderm Patch 5%) 1 patch QAM TD 02/18/16 09:00 03/19/16 08:59 02/19/16 08:41 1 PATCH Miscellaneous (Remove Lidoderm Patch) 1 ea DAILY@21 N/A 02/17/16 21:00 03/18/16 20:59 Amlodipine Besylate (Norvasc Tab) 5 mg QAM PO 02/18/16 09:00 03/19/16 08:59 02/19/16 08:41 5 MG Aspirin (Ecotrin Tab) 81 mg QAM PO 02/18/16 09:00 03/19/16 08:59 02/19/16 08:41 81 MG Carvedilol (Coreg Tab) 12.5 mg BID PO 02/17/16 21:00 03/18/16 20:59 02/19/16 08:41 12.5 MG Furosemide (Lasix tab) 40 mg DAILY@1800 PO 02/17/16 18:00 03/18/16 17:59 02/19/16 17:13 40 MG Furosemide (Lasix tab) 80 mg DAILY@0800 PO 02/18/16 08:00 03/19/16 07:59 02/19/16 08:40 80 MG Lisinopril (Zestril Tab) 40 mg QAM PO 02/18/16 09:00 03/19/16 08:59 02/19/16 08:41 40 MG Mirtazapine (Remeron Tab) 15 mg HS PO 02/17/16 21:00 03/18/16 20:59 02/18/16 19:46 15 MG Potassium Chloride (Klor-Con Tab) 20 meq BID PO 02/17/16 21:00 03/18/16 20:59 02/19/16 08:41 20 MEQ Spironolactone (Aldactone Tab) 12.5 mg QAM PO 02/18/16 09:00 03/19/16 08:59 02/19/16 08:40 12.5 MG Sucralfate (Carafate Tab) 1 gm QID PO 02/17/16 17:00 03/18/16 16:59 02/19/16 17:13 1 GM Warfarin Sodium (Coumadin Tab) 10 mg SuTuWeThSa@1600 PO 02/17/16 18:05 03/18/16 18:04 02/18/16 16:00 10 MG Pantoprazole Sodium (Protonix Tab) 40 mg BID PO 02/17/16 21:00 03/18/16 20:59 02/19/16 08:41 40 MG Warfarin Sodium (Coumadin Tab) 5 mg MoFr@1600 PO 02/19/16 16:00 03/20/16 15:59 02/19/16 17:13 5 MG Glucose (Glucose 40% Gel) 15-30 GRAMS 15 GRAMS... UD PRN PO 02/17/16 17:00 03/18/16 16:59 Glucose (Glucose Chew Tab) 4-8 Tablets 4 Tabl... UD PRN PO 02/17/16 17:00 03/18/16 16:59 Dextrose (Dextrose 50% 50ML Syringe) 25-50ML OF 50% DW IV FOR... UD PRN IV 02/17/16 17:00 03/18/16 16:59 Glucagon (Glucagon Inj) 1 mg UD PRN SQ 02/17/16 17:00 03/18/16 16:59 Insulin Glargine (Lantus Solostar Pen) 40 unit BID SC 02/17/16 21:00 03/18/16 20:59 02/19/16 08:45 40 UNIT Miscellaneous (Iv Fluids Completed) 1 ea PRN PRN N/A 02/17/16 19:45 02/16/17 19:44 Enoxaparin Sodium (Lovenox Inj) 141 mg Q12@1000,2200 SQ 02/18/16 14:00 03/19/16 13:59 02/19/16 08:42 141 MG Warfarin Sodium (Coumadin Tab) 7.5 mg ONE PO 02/19/16 20:15 03/20/16 20:14 UNV
[2016-02-19] MEDS: MIRTAZAPINE TAB 15 MG TAB PO SCH (20:45)
[2016-02-19] MEDS ORDERED: WARFARIN SOD 7.5 MG TAB PO ONE (22:00)
[2016-02-20] VITALS (10 sets, daily range): BP systolic 130–170; BP diastolic 69–79; PULSE 54–78; TEMP 36.4–37; O2SAT 92–97
[2016-02-20 07:01] LABS: BASO % 0.1 %; BASO ABS # 0.01 K/uL (0-0.2); COMPLETE YES; EOS % 0.8 %; HEMATOCRIT 31.3 % (42-52); IG% 0.2 %; LYMPH % 9.1 %; LYMPH ABS # 0.75 K/uL (1.2-3.4); MEAN CELL VOLUME 90.2 fL (80-100); MEAN CORPUSCULAR HEMOGLOBIN 30.8 pg (25-34); MEAN CORPUSCULAR HGB CONC 34.2 g/dl (32-36); MEAN PLATELET VOLUME 10.1 fL (7.4-10.4); MONO % 8.5 %; NEUT % 81.3 %; PLATELET COUNT 167 K/uL (130-400); RED BLOOD COUNT 3.47 M/uL (4.7-6.1); WHITE BLOOD COUNT 8.25 K/uL (4.8-10.8)
[2016-02-20 07:13] LABS: INR 1.5 (0.9-1.1); PROTHROMBIN TIME (PATIENT) 15.9 SECONDS (9.0-12.0)
[2016-02-20 07:27] LABS: BUN/CREATININE RATIO 24.4 (10-20); CALCIUM 9.1 mg/dl (8.5-10.1); CREATININE 1.9 mg/dl (0.60-1.40); MAGNESIUM 2.5 mg/dl (1.8-2.4); POTASSIUM 4.7 mmol/L (3.5-5.1)
[2016-02-20] MEDS: INSULIN ASPART 100 UNITS/ML 3 ML PEN SC SCH ×4 (09:28→21:00)
[2016-02-20] MEDS: INSULIN GLARGINE SOLOSTAR 100 UNITS/ML 3 ML PEN SC SCH ×2 (09:29→21:33)
[2016-02-20] MEDS: ASPIRIN 81 MG ECTAB PO SCH (09:29)
[2016-02-20] MEDS: LISINOPRIL 40 MG TAB PO SCH (09:29)
[2016-02-20] MEDS: FUROSEMIDE 80 MG TAB PO SCH (09:29)
[2016-02-20] MEDS: AMLODIPINE BESYLATE 5 MG TAB PO SCH (09:29)
[2016-02-20] MEDS: CARVEDILOL 12.5 MG TAB PO SCH ×2 (09:30→21:23)
[2016-02-20] MEDS: POTASSIUM CHLORIDE 20 MEQ TABCR PO SCH ×2 (09:30→21:24)
[2016-02-20] MEDS: SUCRALFATE 1 GM TAB PO SCH ×4 (09:31→21:23)
[2016-02-20] MEDS: PANTOprazole SOD 40 MG TAB PO SCH ×2 (09:33→21:25)
[2016-02-20] MEDS: DOCUSATE SODIUM/SENNA 50/8.6MG TAB PO SCH (09:33)
[2016-02-20] MEDS: LIDODERM (LIDOCAINE) PATCH 5% TD SCH (09:34)
[2016-02-20] MEDS: SPIRONOLACTONE 25 MG TAB PO SCH (09:35)
[2016-02-20] MEDS: ENOXAPARIN 150 MG/1ML SYR SQ SCH ×2 (09:42→21:26)
--- NOTE | 2016-02-20 15:01 | Pharmacy Progress Note ---
Glycemic Control: Progress Nt Date of Service Feb 20, 2016. Scope Glycemic Pharmacist consulted for glycemic control and to write orders per [facility] inpatient glycemic control protocol. Objective Accuchecks BSG (last 24hrs): Test 02/19/16 16:22 02/19/16 20:07 02/20/16 06:05 02/20/16 07:39 Bedside Glucose 121 mg/dl (70-99) 171 mg/dl (70-99) 197 mg/dl (70-99) Random Glucose 180 mg/dl (70-99) Test 02/20/16 12:04 Bedside Glucose 167 mg/dl (70-99) Laboratory Data (last 24hrs) Test 02/20/16 06:05 Anion Gap 11.0 mmol/L BUN/Creatinine Ratio 24.4 Blood Urea Nitrogen 46 mg/dl Creatinine 1.90 mg/dl Potassium Level 4.7 mmol/L Sodium Level 136 mmol/L White Blood Count 8.25 K/uL Red Blood Count 3.47 M/uL Hemoglobin 10.7 g/dL Hematocrit 31.3 % Mean Corpuscular Volume 90.2 fL Mean Corpuscular Hemoglobin 30.8 pg Mean Corpuscular Hemoglobin Concent 34.2 g/dl Platelet Count 167 K/uL Mean Platelet Volume 10.1 fL Neutrophils (%) (Auto) 81.3 % Lymphocytes (%) (Auto) 9.1 % Monocytes (%) (Auto) 8.5 % Eosinophils (%) (Auto) 0.8 % Basophils (%) (Auto) 0.1 % Neutrophils # (Auto) 6.70 K/uL Lymphocytes # (Auto) 0.75 K/uL Monocytes # (Auto) 0.70 K/uL Eosinophils # (Auto) 0.07 K/uL Basophils # (Auto) 0.01 K/uL HbA1c: Test 02/18/16 07:03 Hemoglobin A1c 6.8 % (4.5-5.6) H Recent Pertinent Medications Outpatient Anti-diabetic Regimen: * NovoLog 70/30 pre-mixed insulin --> up to 250 units/day The patient is currently receiving: * Basal insulin: Lantus 40 units every 12 hours * Correctional Insulin: Novolog Correction per scale ACHS Goal Range: Low 120 mg/dL - High 160 mg/dL Correction Factor: 10 mg/dL/unit * Prandial insulin: Per carb ratio of 1 unit per 5 grams CHO consumed Risk Factors for Insulin Resistance: * Intra-articular Steroid injection 02/18/16 * Diet Assessment & Plan ASSESSMENT: * 80yo T2DM male with adequate outpatient control per recent A1c * Pt is maintained on very high outpatient dosing (up to 250units/day) of premixed basal:prandial insulin. Premixed insulin are not able to be dose titrated for acute situations/PO intake changes, therefore, pt was initiated on SQ basal bolus insulin regimen of Lantus + NovoLog * Patient has been receiving ~ 108-125 units of insulin per day with adequate control * BSGs ranging 121-197mg/dl over the past 24hrs * AM fasting BSG is slightly high at 198mg/dl --> unsure why as previous days fasting BSG has been in or near goal range with current Lantus dosing. Will increase dosing tomorrow if AM fasting BSG still elevated * Post-prandial BSGs elevated at lunch and HS --> will tighten CR * ADA & AACE recommend a goal blood sugar range 140-180 mg/dl for the majority of critically ill & non-critically ill patients. However, more stringent targets may be selected in individual cases. Will utilize more stringent goal range of 120-160mg/dl based on baseline tight glycemic control. PLAN FOR INPATIENT GLYCEMIC CONTROL: * Continue Basal insulin with LANTUS 40 units SQ BID * Administer 1/2 dose if BSG < 120 mg/dl * Correctional Insulin with NOVOLOG per scale ACHS or Q6hrs while NPO * Goal Range: Low 120 mg/dL - High 140 mg/dL * Correction Factor: 10 mg/dL/unit * Nutritional / Prandial insulin per carb ratio of 1 unit per 4 grams CHO consumed * Please note that the plan above was derived based on current level of insulin resistance and hospital stress. These recommendations are appropriate for inpatient admission only. Plan of care upon discharge will need to be reassessed to avoid potential outpatient hypo/hyperglycemia. Thank you.
[2016-02-20] MEDS: WARFARIN SOD 5 MG TAB PO SCH (17:01)
[2016-02-20] MEDS: FUROSEMIDE 40 MG TAB PO SCH (17:04)
--- NOTE | 2016-02-20 18:49 | Progress Note ---
Medicine Progress Note Date & Time of Visit: Feb 20, 2016 at 18:46. Subjective patient states his left shoulder feels stiff again today right hip pain about the same, still worse with ambulation no leg weakness or numbness otherwise, no other symptoms Objective Last 8 Hrs Date Time Temp Pulse Resp B/P Pulse Ox O2 Delivery O2 Flow Rate FiO2 02/20/16 15:57 36.6 73 18 135/71 96 Room Air 02/20/16 12:11 36.7 76 18 130/78 96 Room Air 02/20/16 12:00 Room Air Physical Exam: General- oriented x 3,not in distress Neck- no JVD Lungs- clear breath sounds bilaterally, no rales/wheeze Heart- normal rate, irregularly irregular rhythm; no murmurs Abdomen- normal bowel sounds, soft, nontender Extremities- no pretibial edema, no calf tenderness Neuro- alert, oriented x 3; no gross deficits Skin- warm & dry Laboratory Results: Last 24 Hours Test 02/19/16 20:07 02/20/16 06:05 02/20/16 07:39 02/20/16 12:04 Bedside Glucose 171 mg/dl 197 mg/dl 167 mg/dl White Blood Count 8.25 K/uL Red Blood Count 3.47 M/uL Hemoglobin 10.7 g/dL Hematocrit 31.3 % Mean Corpuscular Volume 90.2 fL Mean Corpuscular Hemoglobin 30.8 pg Mean Corpuscular Hemoglobin Concent 34.2 g/dl Platelet Count 167 K/uL Mean Platelet Volume 10.1 fL Neutrophils (%) (Auto) 81.3 % Lymphocytes (%) (Auto) 9.1 % Monocytes (%) (Auto) 8.5 % Eosinophils (%) (Auto) 0.8 % Basophils (%) (Auto) 0.1 % Neutrophils # (Auto) 6.70 K/uL Lymphocytes # (Auto) 0.75 K/uL Monocytes # (Auto) 0.70 K/uL Eosinophils # (Auto) 0.07 K/uL Basophils # (Auto) 0.01 K/uL RDW Standard Deviation 47.4 fL RDW Coefficient of Variation 14.4 % Immature Granulocyte % (Auto) 0.2 % Immature Granulocyte # (Auto) 0.02 K/uL Prothrombin Time 15.9 SECONDS Prothromb Time International Ratio 1.5 Sodium Level 136 mmol/L Potassium Level 4.7 mmol/L Chloride Level 102 mmol/L Carbon Dioxide Level 23 mmol/L Anion Gap 11.0 mmol/L Blood Urea Nitrogen 46 mg/dl Creatinine 1.90 mg/dl Est Creatinine Clear Calc Drug Dose 46.4 ml/min Estimated GFR () 37.7 Estimated GFR (Non- 32.6 BUN/Creatinine Ratio 24.4 Random Glucose 180 mg/dl Calcium Level 9.1 mg/dl Magnesium Level 2.5 mg/dl Test 02/20/16 16:44 Bedside Glucose 106 mg/dl Assessment & Plan 80 year old male with history of CAD/CABG, CHF, A fib, DM, HTN, CKD 3, and other problems noted below presenting with left shoulder and right hip pain x 2 days. LEFT SHOULDER AND RIGHT HIP PAIN MRI and CT to r/o Fracture, Tears: (+) rotator cuff tear, no hip fracture - evaluated by Ortho service, appreciate the recommendations s/p Steroid Injection 02/18/16 - PRN Tramadol, [place], Morphine Lidoderm patch PT/OT: recommend rehab bowel regimen ordered - improving slowly continue present management HISTORY OF CAD/CABG cardiac markers: mildly elevated troponin troponin stable at 0.2-0.3 echo: no significant change from previous echo -- no cardiac symptoms continue Co reg, Lisinopril, Aspirin, Coumadin A FIB continue Co reg, Coumadin DM ISS Glycemic consult HTN stable continue Amlodipine CKD 3 stable SHAUNA on CPAP HISTORY OF PE INR 1.5 bridge with lovenox continue coumadin DVT prophylaxis on coumadin FULL CODE Disposition anticipate discharge to Rehab Current Inpatient Medications: Current Inpatient Medications Medications (Trade) Dose Ordered Sig/Aileen Route Start Time Stop Time Status Last Admin Dose Admin Acetaminophen (Tylenol Tab) 650 mg Q4H PRN PO 02/17/16 16:00 03/18/16 15:59 Ondansetron HCl (Zofran Inj) 4 mg Q6H PRN IV 02/17/16 16:00 03/18/16 15:59 Nitroglycerin (Nitrostat Tab) 0.4 mg UD PRN SL 02/17/16 16:00 03/18/16 15:59 Insulin Aspart (novoLOG ASPART) SLIDING SCALE If C... ACHS SC 02/17/16 16:00 03/18/16 15:59 02/20/16 17:12 12 UNITS Miscellaneous Information (Consult Glycemic Management Pharmacy) 1 ea UD PRN N/A 02/17/16 16:15 03/18/16 16:14 Tramadol HCl (Ultram Tab) 50 mg Q6H PRN PO 02/17/16 16:30 03/18/16 16:29 Acetaminophen/ Hydrocodone Bitart ([place] 5/325 Tab) 1 tab Q6H PRN PO 02/17/16 16:30 03/02/16 16:29 02/19/16 11:41 1 TAB Morphine Sulfate (MoRPHine SULFATE INJ) 3 mg Q4H PRN IV 02/17/16 16:30 03/02/16 16:29 02/18/16 19:54 3 MG Lidocaine (Lidoderm Patch 5%) 1 patch QAM TD 02/18/16 09:00 03/19/16 08:59 02/20/16 09:34 1 PATCH Miscellaneous (Remove Lidoderm Patch) 1 ea DAILY@21 N/A 02/17/16 21:00 03/18/16 20:59 02/19/16 20:44 1 EA Amlodipine Besylate (Norvasc Tab) 5 mg QAM PO 02/18/16 09:00 03/19/16 08:59 02/20/16 09:29 5 MG Aspirin (Ecotrin Tab) 81 mg QAM PO 02/18/16 09:00 03/19/16 08:59 02/20/16 09:29 81 MG Carvedilol (Coreg Tab) 12.5 mg BID PO 02/17/16 21:00 03/18/16 20:59 02/20/16 09:30 12.5 MG Furosemide (Lasix tab) 40 mg DAILY@1800 PO 02/17/16 18:00 03/18/16 17:59 02/20/16 17:04 40 MG Furosemide (Lasix tab) 80 mg DAILY@0800 PO 02/18/16 08:00 03/19/16 07:59 02/20/16 09:29 80 MG Lisinopril (Zestril Tab) 40 mg QAM PO 02/18/16 09:00 03/19/16 08:59 02/20/16 09:29 40 MG Mirtazapine (Remeron Tab) 15 mg HS PO 02/17/16 21:00 03/18/16 20:59 02/19/16 20:45 15 MG Potassium Chloride (Klor-Con Tab) 20 meq BID PO 02/17/16 21:00 03/18/16 20:59 02/20/16 09:30 20 MEQ Spironolactone (Aldactone Tab) 12.5 mg QAM PO 02/18/16 09:00 03/19/16 08:59 02/20/16 09:35 12.5 MG Sucralfate (Carafate Tab) 1 gm QID PO 02/17/16 17:00 03/18/16 16:59 02/20/16 17:05 1 GM Warfarin Sodium (Coumadin Tab) 10 mg SuTuWeThSa@1600 PO 02/17/16 18:05 03/18/16 18:04 02/20/16 17:01 10 MG Pantoprazole Sodium (Protonix Tab) 40 mg BID PO 02/17/16 21:00 03/18/16 20:59 02/20/16 09:33 40 MG Warfarin Sodium (Coumadin Tab) 5 mg MoFr@1600 PO 02/19/16 16:00 03/20/16 15:59 02/19/16 17:13 5 MG Glucose (Glucose 40% Gel) 15-30 GRAMS 15 GRAMS... UD PRN PO 02/17/16 17:00 03/18/16 16:59 Glucose (Glucose Chew Tab) 4-8 Tablets 4 Tabl... UD PRN PO 02/17/16 17:00 03/18/16 16:59 Dextrose (Dextrose 50% 50ML Syringe) 25-50ML OF 50% DW IV FOR... UD PRN IV 02/17/16 17:00 03/18/16 16:59 Glucagon (Glucagon Inj) 1 mg UD PRN SQ 02/17/16 17:00 03/18/16 16:59 Insulin Glargine (Lantus Solostar Pen) 40 unit BID SC 02/17/16 21:00 03/18/16 20:59 02/20/16 09:29 40 UNIT Miscellaneous (Iv Fluids Completed) 1 ea PRN PRN N/A 02/17/16 19:45 02/16/17 19:44 Enoxaparin Sodium (Lovenox Inj) 141 mg Q12@1000,2200 SQ 02/18/16 14:00 03/19/16 13:59 02/20/16 09:42 141 MG Senna/Docusate Sodium (Senokot S Tab) 1 tab QAM PO 02/20/16 09:00 03/21/16 08:59 02/20/16 09:33 1 TAB
[2016-02-20] MEDS: MIRTAZAPINE TAB 15 MG TAB PO SCH (21:24)
[2016-02-20] MEDS: MoRPHine SULFATE 4 MG/ML 1 ML CARP\\VIAL IV PRN (21:40)
[2016-02-21] VITALS (7 sets, daily range): BP systolic 105–168; BP diastolic 55–86; PULSE 64–81; TEMP 36.5–37; O2SAT 95–98
[2016-02-21 07:04] LABS: BASO % 0.3 %; BASO ABS # 0.02 K/uL (0-0.2); COMPLETE YES; EOS % 2.1 %; HEMATOCRIT 33.3 % (42-52); IG% 0.1 %; LYMPH % 12.3 %; LYMPH ABS # 0.92 K/uL (1.2-3.4); MEAN CELL VOLUME 89.5 fL (80-100); MEAN CORPUSCULAR HEMOGLOBIN 30.9 pg (25-34); MEAN CORPUSCULAR HGB CONC 34.5 g/dl (32-36); MEAN PLATELET VOLUME 9.5 fL (7.4-10.4); MONO % 8.9 %; NEUT % 76.3 %; PLATELET COUNT 187 K/uL (130-400); RED BLOOD COUNT 3.72 M/uL (4.7-6.1); WHITE BLOOD COUNT 7.49 K/uL (4.8-10.8)
[2016-02-21 07:08] LABS: INR 1.7 (0.9-1.1); PROTHROMBIN TIME (PATIENT) 18.1 SECONDS (9.0-12.0)
[2016-02-21 07:31] LABS: BUN/CREATININE RATIO 29.1 (10-20); CREATININE 1.8 mg/dl (0.60-1.40); MAGNESIUM 2.5 mg/dl (1.8-2.4); POTASSIUM 4.5 mmol/L (3.5-5.1)
[2016-02-21] MEDS: DOCUSATE SODIUM/SENNA 50/8.6MG TAB PO SCH (08:32)
[2016-02-21] MEDS: SPIRONOLACTONE 25 MG TAB PO SCH (08:32)
[2016-02-21] MEDS: FUROSEMIDE 80 MG TAB PO SCH (08:32)
[2016-02-21] MEDS: PANTOprazole SOD 40 MG TAB PO SCH ×2 (08:32→21:12)
[2016-02-21] MEDS: LISINOPRIL 40 MG TAB PO SCH (08:32)
[2016-02-21] MEDS: SUCRALFATE 1 GM TAB PO SCH ×4 (08:34→21:10)
[2016-02-21] MEDS: ASPIRIN 81 MG ECTAB PO SCH (08:35)
[2016-02-21] MEDS: POTASSIUM CHLORIDE 20 MEQ TABCR PO SCH ×2 (08:35→21:13)
[2016-02-21] MEDS: CARVEDILOL 12.5 MG TAB PO SCH ×2 (08:35→21:10)
[2016-02-21] MEDS: AMLODIPINE BESYLATE 5 MG TAB PO SCH (08:35)
[2016-02-21] MEDS: LIDODERM (LIDOCAINE) PATCH 5% TD SCH (08:37)
[2016-02-21] MEDS: INSULIN ASPART 100 UNITS/ML 3 ML PEN SC SCH ×4 (08:55→21:00)
[2016-02-21] MEDS: INSULIN GLARGINE SOLOSTAR 100 UNITS/ML 3 ML PEN SC SCH ×2 (08:56→21:21)
[2016-02-21] MEDS: ENOXAPARIN 150 MG/1ML SYR SQ SCH ×2 (08:58→21:16)
--- NOTE | 2016-02-21 15:27 | Progress Note ---
Medicine Progress Note Date & Time of Visit: Feb 21, 2016 at 15:23. Subjective patient states he feels that his left shoulder continues to improve right hip pain about the same, worse with walking, no weakness/numbness no other symptoms would like to transition to Rehab first Objective Last 8 Hrs Date Time Temp Pulse Resp B/P Pulse Ox O2 Delivery O2 Flow Rate FiO2 02/21/16 11:18 Room Air 02/21/16 11:03 36.7 64 20 132/79 95 Room Air 02/21/16 07:46 Room Air Physical Exam: General- oriented x 3,not in distress Neck- no JVD Lungs- clear breath sounds, no rales/wheeze b/l Heart- normal rate, irregularly irregular rhythm; no murmurs Abdomen- normal bowel sounds, soft, nontender Extremities- no pretibial edema, no calf tenderness improved range of motion of left arm, less tenderness on the left shoulder Neuro- alert, oriented x 3; no gross deficits Skin- warm & dry Laboratory Results: Last 24 Hours Test 02/20/16 16:44 02/20/16 20:44 02/21/16 06:42 02/21/16 07:04 Bedside Glucose 106 mg/dl 126 mg/dl 121 mg/dl White Blood Count 7.49 K/uL Red Blood Count 3.72 M/uL Hemoglobin 11.5 g/dL Hematocrit 33.3 % Mean Corpuscular Volume 89.5 fL Mean Corpuscular Hemoglobin 30.9 pg Mean Corpuscular Hemoglobin Concent 34.5 g/dl Platelet Count 187 K/uL Mean Platelet Volume 9.5 fL Neutrophils (%) (Auto) 76.3 % Lymphocytes (%) (Auto) 12.3 % Monocytes (%) (Auto) 8.9 % Eosinophils (%) (Auto) 2.1 % Basophils (%) (Auto) 0.3 % Neutrophils # (Auto) 5.71 K/uL Lymphocytes # (Auto) 0.92 K/uL Monocytes # (Auto) 0.67 K/uL Eosinophils # (Auto) 0.16 K/uL Basophils # (Auto) 0.02 K/uL RDW Standard Deviation 47.5 fL RDW Coefficient of Variation 14.4 % Immature Granulocyte % (Auto) 0.1 % Immature Granulocyte # (Auto) 0.01 K/uL Prothrombin Time 18.1 SECONDS Prothromb Time International Ratio 1.7 Sodium Level 136 mmol/L Potassium Level 4.5 mmol/L Chloride Level 104 mmol/L Carbon Dioxide Level 22 mmol/L Anion Gap 10.0 mmol/L Blood Urea Nitrogen 52 mg/dl Creatinine 1.80 mg/dl Est Creatinine Clear Calc Drug Dose 48.5 ml/min Estimated GFR () 40.3 Estimated GFR (Non- 34.8 BUN/Creatinine Ratio 29.1 Random Glucose 121 mg/dl Calcium Level 9.0 mg/dl Magnesium Level 2.5 mg/dl Test 02/21/16 11:20 Bedside Glucose 198 mg/dl Assessment & Plan 80 year old male with history of CAD/CABG, CHF, A fib, DM, HTN, CKD 3, and other problems noted below presenting with left shoulder and right hip pain x 2 days. LEFT SHOULDER AND RIGHT HIP PAIN MRI and CT to r/o Fracture, Tears: (+) rotator cuff tear, no hip fracture - evaluated by Ortho service, appreciate the recommendations s/p Steroid Injection 02/18/16 - PRN Tramadol, [place], Morphine Lidoderm patch PT/OT: recommend rehab bowel regimen ordered - improving slowly continue present management patient highly motivated to do PT at Rehab HISTORY OF CAD/CABG cardiac markers: mildly elevated troponin troponin stable at 0.2-0.3 echo: no significant change from previous echo -- no cardiac symptoms continue Co reg, Lisinopril, Aspirin, Coumadin - stable A FIB continue Co reg, Coumadin DM ISS Glycemic consult HTN stable continue Amlodipine CKD 3 stable SHAUNA on CPAP HISTORY OF PE INR 1.7 bridge with lovenox continue coumadin DVT prophylaxis on coumadin FULL CODE Disposition anticipate discharge to Rehab tomorrow Current Inpatient Medications: Current Inpatient Medications Medications (Trade) Dose Ordered Sig/Aileen Route Start Time Stop Time Status Last Admin Dose Admin Acetaminophen (Tylenol Tab) 650 mg Q4H PRN PO 02/17/16 16:00 03/18/16 15:59 Ondansetron HCl (Zofran Inj) 4 mg Q6H PRN IV 02/17/16 16:00 03/18/16 15:59 Nitroglycerin (Nitrostat Tab) 0.4 mg UD PRN SL 02/17/16 16:00 03/18/16 15:59 Insulin Aspart (novoLOG ASPART) SLIDING SCALE If C... ACHS SC 02/17/16 16:00 03/18/16 15:59 02/21/16 12:39 25 UNITS Miscellaneous Information (Consult Glycemic Management Pharmacy) 1 ea UD PRN N/A 02/17/16 16:15 03/18/16 16:14 Tramadol HCl (Ultram Tab) 50 mg Q6H PRN PO 02/17/16 16:30 03/18/16 16:29 Acetaminophen/ Hydrocodone Bitart ([place] 5/325 Tab) 1 tab Q6H PRN PO 02/17/16 16:30 03/02/16 16:29 02/19/16 11:41 1 TAB Morphine Sulfate (MoRPHine SULFATE INJ) 3 mg Q4H PRN IV 02/17/16 16:30 03/02/16 16:29 02/20/16 21:40 3 MG Lidocaine (Lidoderm Patch 5%) 1 patch QAM TD 02/18/16 09:00 03/19/16 08:59 02/21/16 08:37 1 PATCH Miscellaneous (Remove Lidoderm Patch) 1 ea DAILY@21 N/A 02/17/16 21:00 03/18/16 20:59 02/20/16 21:34 1 EA Amlodipine Besylate (Norvasc Tab) 5 mg QAM PO 02/18/16 09:00 03/19/16 08:59 02/21/16 08:35 5 MG Aspirin (Ecotrin Tab) 81 mg QAM PO 02/18/16 09:00 03/19/16 08:59 02/21/16 08:35 81 MG Carvedilol (Coreg Tab) 12.5 mg BID PO 02/17/16 21:00 03/18/16 20:59 02/21/16 08:35 12.5 MG Furosemide (Lasix tab) 40 mg DAILY@1800 PO 02/17/16 18:00 03/18/16 17:59 02/20/16 17:04 40 MG Furosemide (Lasix tab) 80 mg DAILY@0800 PO 02/18/16 08:00 03/19/16 07:59 02/21/16 08:32 80 MG Lisinopril (Zestril Tab) 40 mg QAM PO 02/18/16 09:00 03/19/16 08:59 02/21/16 08:32 40 MG Mirtazapine (Remeron Tab) 15 mg HS PO 02/17/16 21:00 03/18/16 20:59 02/20/16 21:24 15 MG Potassium Chloride (Klor-Con Tab) 20 meq BID PO 02/17/16 21:00 03/18/16 20:59 02/21/16 08:35 20 MEQ Spironolactone (Aldactone Tab) 12.5 mg QAM PO 02/18/16 09:00 03/19/16 08:59 02/21/16 08:32 12.5 MG Sucralfate (Carafate Tab) 1 gm QID PO 02/17/16 17:00 03/18/16 16:59 02/21/16 12:36 1 GM Warfarin Sodium (Coumadin Tab) 10 mg SuTuWeThSa@1600 PO 02/17/16 18:05 03/18/16 18:04 02/20/16 17:01 10 MG Pantoprazole Sodium (Protonix Tab) 40 mg BID PO 02/17/16 21:00 03/18/16 20:59 02/21/16 08:32 40 MG Warfarin Sodium (Coumadin Tab) 5 mg MoFr@1600 PO 02/19/16 16:00 03/20/16 15:59 02/19/16 17:13 5 MG Glucose (Glucose 40% Gel) 15-30 GRAMS 15 GRAMS... UD PRN PO 02/17/16 17:00 03/18/16 16:59 Glucose (Glucose Chew Tab) 4-8 Tablets 4 Tabl... UD PRN PO 02/17/16 17:00 03/18/16 16:59 Dextrose (Dextrose 50% 50ML Syringe) 25-50ML OF 50% DW IV FOR... UD PRN IV 02/17/16 17:00 03/18/16 16:59 Glucagon (Glucagon Inj) 1 mg UD PRN SQ 02/17/16 17:00 03/18/16 16:59 Insulin Glargine (Lantus Solostar Pen) 40 unit BID SC 02/17/16 21:00 03/18/16 20:59 02/21/16 08:56 40 UNIT Miscellaneous (Iv Fluids Completed) 1 ea PRN PRN N/A 02/17/16 19:45 02/16/17 19:44 Enoxaparin Sodium (Lovenox Inj) 141 mg Q12@1000,2200 SQ 02/18/16 14:00 03/19/16 13:59 02/21/16 08:58 141 MG Senna/Docusate Sodium (Senokot S Tab) 1 tab QAM PO 02/20/16 09:00 03/21/16 08:59 02/21/16 08:32 1 TAB
[2016-02-21] MEDS: WARFARIN SOD 5 MG TAB PO SCH (16:12)
[2016-02-21] MEDS: FUROSEMIDE 40 MG TAB PO SCH (17:40)
[2016-02-21] MEDS: MIRTAZAPINE TAB 15 MG TAB PO SCH (21:10)
[2016-02-21] MEDS: MoRPHine SULFATE 4 MG/ML 1 ML CARP\\VIAL IV PRN (21:21)
[2016-02-22 04:25] VITALS: BP 137/75; PULSE 81; TEMP 36.7; O2SAT 96
[2016-02-22 07:22] VITALS: BP 140/80; PULSE 64; TEMP 37; O2SAT 97
[2016-02-22 07:38] LABS: INR 1.9 (0.9-1.1)
[2016-02-22] MEDS: LIDODERM (LIDOCAINE) PATCH 5% TD SCH (08:25)
[2016-02-22] MEDS: PANTOprazole SOD 40 MG TAB PO SCH ×2 (08:25→20:53)
[2016-02-22] MEDS: SPIRONOLACTONE 25 MG TAB PO SCH (08:26)
[2016-02-22] MEDS: CARVEDILOL 12.5 MG TAB PO SCH ×2 (08:27→20:54)
[2016-02-22] MEDS: SUCRALFATE 1 GM TAB PO SCH ×4 (08:27→20:52)
[2016-02-22] MEDS: AMLODIPINE BESYLATE 5 MG TAB PO SCH (08:28)
[2016-02-22] MEDS: FUROSEMIDE 80 MG TAB PO SCH (08:28)
[2016-02-22] MEDS: POTASSIUM CHLORIDE 20 MEQ TABCR PO SCH ×2 (08:28→20:53)
[2016-02-22] MEDS: DOCUSATE SODIUM/SENNA 50/8.6MG TAB PO SCH (08:29)
[2016-02-22] MEDS: LISINOPRIL 40 MG TAB PO SCH (08:29)
[2016-02-22] MEDS: ASPIRIN 81 MG ECTAB PO SCH (08:29)
[2016-02-22] MEDS: INSULIN ASPART 100 UNITS/ML 3 ML PEN SC SCH ×4 (08:38→21:02)
[2016-02-22] MEDS: INSULIN GLARGINE SOLOSTAR 100 UNITS/ML 3 ML PEN SC SCH ×2 (08:39→21:03)
[2016-02-22 09:55] VITALS: BP 140/80; PULSE 64; O2SAT 97
[2016-02-22] MEDS: ENOXAPARIN 150 MG/1ML SYR SQ SCH ×2 (10:00→21:28)
--- NOTE | 2016-02-22 15:30 | PROGRESS NOTE ---
DATE: 02/22/2016 CHIEF COMPLAINT: Right hip pain. HISTORY OF PRESENT ILLNESS: Mr. Macedo is a delightful gentleman. We remember him well from last week. He is 80 years of age. He had a combination of left shoulder pain and right hip pain. At this point in time, the right hip seems to be his nemesis and the cause of most of his pain. X-rays revealed some degenerative arthritis of the right hip. He has no fever, sweats, or chills. No trauma to suggest a fracture. PHYSICAL EXAMINATION: Decreased range of motion with internal and external rotation of the right hip. No leg length discrepancy. No neurological deficits. IMAGING DATA: X-rays demonstrate [id number] severe degenerative arthritis of the right hip, although no ankylosis. IMPRESSION: Delightful 80-year-old gentleman with other comorbidities including cardiac disease and a significant arthritic issue of the right hip. DISPOSITION: I agree with the transfer to [facility] that will transpire either today the or tomorrow 02/23/2016. He should see Dr. Raza for followup in our group within the next week to 10 days appointment can be made. The patient seems up to the task with calling and making the appointment. I would suggest a walker for support, weightbearing as tolerated on both upper extremities and lower extremities. Once again, follow up with Dr. Raza. Medication will be prescribed along with an anti-inflammatory if he could tolerate that and we will go from there.
[2016-02-22 15:36] VITALS: BP 160/81; PULSE 78; TEMP 36.4; O2SAT 97
--- NOTE | 2016-02-22 15:48 | Pharmacy Progress Note ---
Glycemic: Assessment & Plan Date of Service Feb 22, 2016. Assessment & Plan The patient is currently receiving about 135 units of insulin per day. BSGs ranging 60-115 mg/dl over the past 24hrs. Most of the hyperglycemic effect of the Depo-Medrol injection has worn off, and he needs less insulin than as an outpatient. Will decrease Lantus, loosen Novolog coverage and reassess in am. Note that recent A1c of 6.8% in an 80 yo may indicate too tight glycemic control with some hypoglycemia. * Basal insulin: Lantus 35 units every 12 hours, give 1/2 dose (17 units) if BSG is less than 110 * Correctional Insulin: Novolog Correction per scale ACHS Goal Range: Low 120 mg/dL - High 140 mg/dL Correction Factor: 15 mg/dL/unit * Prandial insulin: Per carb ratio of 1 unit per 5 grams CHO consumed BSGs continue to improve, no other changes needed to inpatient regimen at this time. Pharmacy will continue to monitor patient daily and write orders per [facility] inpatient glycemic control protocol. Thanks. * Please note that the plan above was derived based on current level of insulin resistance and hospital stress. These recommendations are appropriate for inpatient admission only. Plan of care upon discharge will need to be reassessed to avoid potential outpatient hypo/hyperglycemia.
[2016-02-22] MEDS: WARFARIN SOD 5 MG TAB PO SCH (16:26)
[2016-02-22] MEDS: FUROSEMIDE 40 MG TAB PO SCH (17:50)
[2016-02-22 20:50] VITALS: BP 127/79; PULSE 91; O2SAT 92
[2016-02-22] MEDS: MIRTAZAPINE TAB 15 MG TAB PO SCH (20:53)
--- NOTE | 2016-02-22 21:04 | Progress Note ---
Medicine Progress Note Date & Time of Visit: Feb 22, 2016 at 20:59. Subjective states he still has right hip pain feels somewhat weak today, verbalizes he is not yet ready for discharge left shoulder pain improving no other symptoms Objective Last 8 Hrs Date Time Temp Pulse Resp B/P Pulse Ox O2 Delivery O2 Flow Rate FiO2 02/22/16 20:50 91 127/79 92 Room Air 02/22/16 20:00 Room Air 02/22/16 15:36 36.4 78 16 160/81 97 Room Air 02/22/16 15:33 Room Air Physical Exam: General- oriented x 3,not in distress Neck- no JVD Lungs- clear breath sounds b/l Heart- normal rate, irregularly irregular rhythm; no murmurs Abdomen- normal bowel sounds, soft, nontender Extremities- no pretibial edema, no calf tenderness improving range of motion of left arm, minimal tenderness on the left shoulder Neuro- alert, oriented x 3; no gross deficits Skin- warm & dry Laboratory Results: Last 24 Hours Test 02/21/16 21:08 02/22/16 07:08 02/22/16 07:33 02/22/16 11:14 Bedside Glucose 103 mg/dl 115 mg/dl 98 mg/dl Prothrombin Time 21.0 SECONDS Prothromb Time International Ratio 1.9 Test 02/22/16 16:25 02/22/16 20:03 Bedside Glucose 145 mg/dl 152 mg/dl Assessment & Plan 80 year old male with history of CAD/CABG, CHF, A fib, DM, HTN, CKD 3, and other problems noted below presenting with left shoulder and right hip pain x 2 days. LEFT SHOULDER AND RIGHT HIP PAIN MRI and CT to r/o Fracture, Tears: (+) rotator cuff tear, no hip fracture - evaluated by Ortho service, appreciate the recommendations s/p Steroid Injection 02/18/16 - PRN Tramadol, [place], Morphine Lidoderm patch PT/OT: recommend rehab bowel regimen ordered - continues to improve continue present management patient highly motivated to do PT at Rehab, possible d/c in AM HISTORY OF CAD/CABG cardiac markers: mildly elevated troponin troponin stable at 0.2-0.3 echo: no significant change from previous echo -- no cardiac symptoms continue Co reg, Lisinopril, Aspirin, Coumadin - stable A FIB continue Co reg, Coumadin DM ISS Glycemic consult HTN stable continue Amlodipine CKD 3 stable SHAUNA on CPAP HISTORY OF PE INR 1.9 bridge with lovenox continue coumadin DVT prophylaxis on coumadin FULL CODE Disposition anticipate discharge to Rehab tomorrow Current Inpatient Medications: Current Inpatient Medications Medications (Trade) Dose Ordered Sig/[place]ileen Route Start Time Stop Time Status Last Admin Dose Admin Acetaminophen (Tylenol Tab) 650 mg Q4H PRN PO 02/17/16 16:00 03/18/16 15:59 Ondansetron HCl (Zofran Inj) 4 mg Q6H PRN IV 02/17/16 16:00 03/18/16 15:59 Nitroglycerin (Nitrostat Tab) 0.4 mg UD PRN SL 02/17/16 16:00 03/18/16 15:59 Insulin Aspart (novoLOG ASPART) SLIDING SCALE If C... ACHS SC 02/17/16 16:00 03/18/16 15:59 02/22/16 17:52 13 UNITS Miscellaneous Information (Consult Glycemic Management Pharmacy) 1 ea UD PRN N/A 02/17/16 16:15 03/18/16 16:14 Tramadol HCl (Ultram Tab) 50 mg Q6H PRN PO 02/17/16 16:30 03/18/16 16:29 Acetaminophen/ Hydrocodone Bitart ([place] 5/325 Tab) 1 tab Q6H PRN PO 02/17/16 16:30 03/02/16 16:29 02/19/16 11:41 1 TAB Morphine Sulfate (MoRPHine SULFATE INJ) 3 mg Q4H PRN IV 02/17/16 16:30 03/02/16 16:29 02/21/16 21:21 3 MG Lidocaine (Lidoderm Patch 5%) 1 patch QAM TD 02/18/16 09:00 03/19/16 08:59 02/22/16 08:25 1 PATCH Miscellaneous (Remove Lidoderm Patch) 1 ea DAILY@21 N/A 02/17/16 21:00 03/18/16 20:59 02/22/16 20:52 1 EA Amlodipine Besylate (Norvasc Tab) 5 mg QAM PO 02/18/16 09:00 03/19/16 08:59 02/22/16 08:28 5 MG Aspirin (Ecotrin Tab) 81 mg QAM PO 02/18/16 09:00 03/19/16 08:59 02/22/16 08:29 81 MG Carvedilol (Coreg Tab) 12.5 mg BID PO 02/17/16 21:00 03/18/16 20:59 02/22/16 20:54 12.5 MG Furosemide (Lasix tab) 40 mg DAILY@1800 PO 02/17/16 18:00 03/18/16 17:59 02/22/16 17:50 40 MG Furosemide (Lasix tab) 80 mg DAILY@0800 PO 02/18/16 08:00 03/19/16 07:59 02/22/16 08:28 80 MG Lisinopril (Zestril Tab) 40 mg QAM PO 02/18/16 09:00 03/19/16 08:59 02/22/16 08:29 40 MG Mirtazapine (Remeron Tab) 15 mg HS PO 02/17/16 21:00 03/18/16 20:59 02/22/16 20:53 15 MG Potassium Chloride (Klor-Con Tab) 20 meq BID PO 02/17/16 21:00 03/18/16 20:59 02/22/16 20:53 20 MEQ Spironolactone (Aldactone Tab) 12.5 mg QAM PO 02/18/16 09:00 03/19/16 08:59 02/22/16 08:26 12.5 MG Sucralfate (Carafate Tab) 1 gm QID PO 02/17/16 17:00 03/18/16 16:59 02/22/16 20:52 1 GM Warfarin Sodium (Coumadin Tab) 10 mg SuTuWeThSa@1600 PO 02/17/16 18:05 03/18/16 18:04 02/21/16 16:12 10 MG Pantoprazole Sodium (Protonix Tab) 40 mg BID PO 02/17/16 21:00 03/18/16 20:59 02/22/16 20:53 40 MG Warfarin Sodium (Coumadin Tab) 5 mg MoFr@1600 PO 02/19/16 16:00 03/20/16 15:59 02/22/16 16:26 5 MG Glucose (Glucose 40% Gel) 15-30 GRAMS 15 GRAMS... UD PRN PO 02/17/16 17:00 2/3/17 16:59 Glucose (Glucose Chew Tab) 4-8 Tablets 4 Tabl... UD PRN PO 02/17/16 17:00 03/18/16 16:59 Dextrose (Dextrose 50% 50ML Syringe) 25-50ML OF 50% DW IV FOR... UD PRN IV 02/17/16 17:00 03/18/16 16:59 Glucagon (Glucagon Inj) 1 mg UD PRN SQ 02/17/16 17:00 03/18/16 16:59 Miscellaneous (Iv Fluids Completed) 1 ea PRN PRN N/A 02/17/16 19:45 02/16/17 19:44 Enoxaparin Sodium (Lovenox Inj) 141 mg Q12@1000,2200 SQ 02/18/16 14:00 03/19/16 13:59 02/22/16 10:00 141 MG Senna/Docusate Sodium (Senokot S Tab) 1 tab QAM PO 02/20/16 09:00 03/21/16 08:59 02/22/16 08:29 1 TAB Insulin Glargine (Lantus Solostar Pen) 35 unit BID SC 02/22/16 21:00 03/23/16 20:59
[2016-02-23] VITALS: BP 143/87; PULSE 78; TEMP 36.7; O2SAT 95
[2016-02-23 06:51] LABS: INR 1.9 (0.9-1.1)
[2016-02-23 07:39] VITALS: BP 141/90; PULSE 70; TEMP 36.6; O2SAT 96
[2016-02-23 07:57] VITALS: O2SAT 96
[2016-02-23] MEDS: AMLODIPINE BESYLATE 5 MG TAB PO SCH (08:37)
[2016-02-23] MEDS: ASPIRIN 81 MG ECTAB PO SCH (08:37)
[2016-02-23] MEDS: LISINOPRIL 40 MG TAB PO SCH (08:37)
[2016-02-23] MEDS: CARVEDILOL 12.5 MG TAB PO SCH (08:37)
[2016-02-23] MEDS: DOCUSATE SODIUM/SENNA 50/8.6MG TAB PO SCH (08:37)
[2016-02-23] MEDS: FUROSEMIDE 80 MG TAB PO SCH (08:37)
[2016-02-23] MEDS: POTASSIUM CHLORIDE 20 MEQ TABCR PO SCH (08:38)
[2016-02-23] MEDS: SUCRALFATE 1 GM TAB PO SCH ×2 (08:38→12:39)
[2016-02-23] MEDS: SPIRONOLACTONE 25 MG TAB PO SCH (08:38)
[2016-02-23] MEDS: PANTOprazole SOD 40 MG TAB PO SCH (08:38)
[2016-02-23] MEDS: LIDODERM (LIDOCAINE) PATCH 5% TD SCH (08:39)
[2016-02-23] MEDS: INSULIN ASPART 100 UNITS/ML 3 ML PEN SC SCH ×2 (08:45→12:45)
[2016-02-23] MEDS: INSULIN GLARGINE SOLOSTAR 100 UNITS/ML 3 ML PEN SC SCH (08:47)
[2016-02-23] MEDS: HYDROCODONE/ACETAMOPHEN 5/325MG TAB PO PRN (10:12)
[2016-02-23] MEDS: ENOXAPARIN 150 MG/1ML SYR SQ SCH (10:13)
--- NOTE | 2016-02-23 10:40 | Pharmacy Progress Note ---
Glycemic Control: Progress Nt Date of Service Feb 23, 2016. Scope Glycemic Pharmacist consulted by Dr Nolan on 02/17/16 for glycemic control and to write orders per [facility] inpatient glycemic control protocol. Objective Accuchecks BSG (last 24hrs): Test 02/22/16 11:14 02/22/16 16:25 02/22/16 20:03 02/23/16 07:17 Bedside Glucose 98 mg/dl (70-99) 145 mg/dl (70-99) 152 mg/dl (70-99) 122 mg/dl (70-99) HbA1c: Test 02/18/16 07:03 Hemoglobin A1c 6.8 % (4.5-5.6) H Recent Pertinent Medications Outpatient Anti-diabetic Regimen: * Novolog 70%/30% 60 units achs per med rec; 60 units w/breakfast and supper, 50 units w/lunch, up to a maximum of 250 units/day (per [facility] records) * A1c = 6.7 % 01/21/16 The patient is currently receiving: * Basal insulin: Lantus 35 units bid * Correctional Insulin: Novolog Correction per scale ACHS Goal Range: Low 120 mg/dL - High 140 mg/dL Correction Factor: 12 mg/dL/unit * Prandial insulin: Per carb ratio of 1 unit per 5 grams CHO consumed Risk Factors for Insulin Resistance: * Diet: type 2 diabetic AHA thin liquids Assessment & Plan ASSESSMENT: * ADA & AACE recommend a goal blood sugar range 140-180 mg/dl for the majority of critically ill & non-critically ill patients. However, more stringent targets may be selected in individual cases. 02/17/16 * 80 yo type 2 diabetic well-controlled on large doses of Novolog Mix (up to 250 units/day). Will change to Lantus and Novolog, since it is more difficult to titrate mixed insulins. Will start basal insulin with ~20% less Lantus and adjust as needed, and add fairly tight Novolog correction and carb ratio due to his insulin resistance. 02/23/16 * Pt received Depomedrol shoulder injection on 02/17 which elevated blood sugars for a few days. Insulin doses were adjusted and effect appears to have worn off. Pt received 115 units of insulin on 02/21. BSG's ranged 98-152 over past 24 hr. Continue current regimen. PLAN FOR INPATIENT GLYCEMIC CONTROL: * Basal insulin with LANTUS 35 units SQ BID * Correctional Insulin with NOVOLOG per scale ACHS or Q6hrs while NPO * Goal Range: Low 120 mg/dL - High 140 mg/dL * Correction Factor: 12 mg/dL/unit * Nutritional / Prandial insulin per carb ratio of 1 unit per 5 grams CHO consumed DISCHARGE RECOMMENDATION: Based on current oral intake, consider restarting Novolog 70%30% at 55 units bid with meals, OR Lantus 35 units bid, Correction factor 15, Carb ratio 1:5. Patient should followup soon with outpatient provider for dose adjustment. * Please note that the plan above was derived based on current level of insulin resistance and hospital stress. These recommendations are appropriate for inpatient admission only. Plan of care upon discharge will need to be reassessed to avoid potential outpatient hypo/hyperglycemia. Thank you.
[2016-02-23 12:29] VITALS: BP 141/90; PULSE 70; TEMP 36.6; O2SAT 96
--- NOTE | 2016-02-23 14:14 | Progress Note ---
Medicine Progress Note Date & Time of Visit: Feb 23, 2016 at 13:59. Subjective seen sitting up in bed in good spirits states he feels better today pain is manageable denies chest pain, dyspnea, palpitations, dizziness noted hematoma on his lower abdomen, no pain denies other symptoms Objective Last 8 Hrs Date Time Temp Pulse Resp B/P Pulse Ox O2 Delivery O2 Flow Rate FiO2 02/23/16 12:29 36.6 70 18 96 Room Air 02/23/16 07:57 96 Room Air 02/23/16 07:39 36.6 70 18 141/90 96 Room Air Physical Exam: General- oriented x 3,not in distress Neck- no JVD Lungs- clear breath sounds bilaterally, no rales/wheeze Heart- normal rate, irregularly irregular rhythm; no murmurs Abdomen- (+) hematoma on the lower abdomen (marked by pen on his skin), no pain , fluctuant mass or collection normal bowel sounds, soft, nontender Extremities- no pretibial edema, no calf tenderness improving range of motion of left arm, minimal tenderness on the left shoulder Neuro- alert, oriented x 3; no gross deficits Skin- warm & dry Laboratory Results: Last 24 Hours Test 02/22/16 16:25 02/22/16 20:03 02/23/16 06:26 02/23/16 07:17 Bedside Glucose 145 mg/dl 152 mg/dl 122 mg/dl Prothrombin Time 21.0 SECONDS Prothromb Time International Ratio 1.9 Test 02/23/16 11:57 Bedside Glucose 140 mg/dl Assessment & Plan 80 year old male with history of CAD/CABG, CHF, A fib, DM, HTN, CKD 3, and other problems noted below presenting with left shoulder and right hip pain x 2 days. LEFT SHOULDER AND RIGHT HIP PAIN MRI and CT to r/o Fracture, Tears: (+) rotator cuff tear, no hip fracture - evaluated by Ortho service, appreciate the recommendations s/p Steroid Injection 02/18/16 - PRN Tramadol, [place], Morphine Lidoderm patch PT/OT: recommend rehab bowel regimen ordered - continues to improve transition to [facility] today, continue PT/OT ff up with Ortho Dr. Brar in 1 week HEMATOMA ON THE LOWER ABDOMEN likely from Insulin, Lovenox injections no swelling/fluctuant mass noted - on coumadin for history of pulmonary embolism on coumadin + lovenox for the past few days for subtherapeutic INR INR 1.9 on day of discharge (02/23/16) HOLD coumadin and lovenox today monitor INR daily resume coumadin as soon as possible when hematoma is stable (borders marked on his skin) HISTORY OF CAD/CABG cardiac markers: mildly elevated troponin troponin stable at 0.2-0.3 echo: no significant change from previous echo -- no cardiac symptoms continue Co reg, Lisinopril, Coumadin HOLD aspirin for now, resume as soon as possible when hematoma is stable ( borders marked on his skin) A FIB continue Co reg management of coumadin as noted above DM decrease Novolog 70/30 to 55 units BID monitor BSGs AC and HS HTN stable continue Amlodipine CKD 3 stable SHAUNA on CPAP HISTORY OF PULMONARY EMBOLISM on coumadin + lovenox for the past few days for subtherapeutic INR INR 1.9 on day of discharge (02/23/16) HOLD coumadin and lovenox today monitor INR daily resume coumadin as soon as possible when hematoma is stable (borders marked on his skin) DVT prophylaxis was on coumadin + lovenox FULL CODE Disposition d/c to [facility] follow up with Orthopedic Surgeon Dr. Brar in 1 week follow up with PCP Dr. Ryder in 1 week Current Inpatient Medications: Current Inpatient Medications Medications (Trade) Dose Ordered Sig/Aileen Route Start Time Stop Time Status Last Admin Dose Admin Acetaminophen (Tylenol Tab) 650 mg Q4H PRN PO 02/17/16 16:00 03/18/16 15:59 Ondansetron HCl (Zofran Inj) 4 mg Q6H PRN IV 02/17/16 16:00 03/18/16 15:59 Nitroglycerin (Nitrostat Tab) 0.4 mg UD PRN SL 02/17/16 16:00 03/18/16 15:59 Insulin Aspart (novoLOG ASPART) SLIDING SCALE If C... ACHS SC 02/17/16 16:00 03/18/16 15:59 02/23/16 12:45 8 UNITS Miscellaneous Information (Consult Glycemic Management Pharmacy) 1 ea UD PRN N/A 02/17/16 16:15 03/18/16 16:14 Tramadol HCl (Ultram Tab) 50 mg Q6H PRN PO 02/17/16 16:30 03/18/16 16:29 Acetaminophen/ Hydrocodone Bitart ([place] 5/325 Tab) 1 tab Q6H PRN PO 02/17/16 16:30 03/02/16 16:29 02/23/16 10:12 1 TAB Morphine Sulfate (MoRPHine SULFATE INJ) 3 mg Q4H PRN IV 02/17/16 16:30 03/02/16 16:29 02/21/16 21:21 3 MG Lidocaine (Lidoderm Patch 5%) 1 patch QAM TD 02/18/16 09:00 03/19/16 08:59 02/23/16 08:39 1 PATCH Miscellaneous (Remove Lidoderm Patch) 1 ea DAILY@21 N/A 02/17/16 21:00 03/18/16 20:59 02/22/16 20:52 1 EA Amlodipine Besylate (Norvasc Tab) 5 mg QAM PO 02/18/16 09:00 03/19/16 08:59 02/23/16 08:37 5 MG Aspirin (Ecotrin Tab) 81 mg QAM PO 02/18/16 09:00 03/19/16 08:59 02/23/16 08:37 81 MG Carvedilol (Coreg Tab) 12.5 mg BID PO 02/17/16 21:00 03/18/16 20:59 02/23/16 08:37 12.5 MG Furosemide (Lasix tab) 40 mg DAILY@1800 PO 02/17/16 18:00 03/18/16 17:59 02/22/16 17:50 40 MG Furosemide (Lasix tab) 80 mg DAILY@0800 PO 02/18/16 08:00 03/19/16 07:59 02/23/16 08:37 80 MG Lisinopril (Zestril Tab) 40 mg QAM PO 02/18/16 09:00 03/19/16 08:59 02/23/16 08:37 40 MG Mirtazapine (Remeron Tab) 15 mg HS PO 02/17/16 21:00 03/18/16 20:59 02/22/16 20:53 15 MG Potassium Chloride (Klor-Con Tab) 20 meq BID PO 02/17/16 21:00 03/18/16 20:59 02/23/16 08:38 20 MEQ Spironolactone (Aldactone Tab) 12.5 mg QAM PO 02/18/16 09:00 03/19/16 08:59 02/23/16 08:38 12.5 MG Sucralfate (Carafate Tab) 1 gm QID PO 02/17/16 17:00 03/18/16 16:59 02/23/16 12:39 1 GM Warfarin Sodium (Coumadin Tab) 10 mg SuTuWeThSa@1600 PO 02/17/16 18:05 03/18/16 18:04 02/21/16 16:12 10 MG Pantoprazole Sodium (Protonix Tab) 40 mg BID PO 02/17/16 21:00 03/18/16 20:59 02/23/16 08:38 40 MG Warfarin Sodium (Coumadin Tab) 5 mg MoFr@1600 PO 02/19/16 16:00 03/20/16 15:59 02/22/16 16:26 5 MG Glucose (Glucose 40% Gel) 15-30 GRAMS 15 GRAMS... UD PRN PO 02/17/16 17:00 03/18/16 16:59 Glucose (Glucose Chew Tab) 4-8 Tablets 4 Tabl... UD PRN PO 02/17/16 17:00 03/18/16 16:59 Dextrose (Dextrose 50% 50ML Syringe) 25-50ML OF 50% DW IV FOR... UD PRN IV 02/17/16 17:00 03/18/16 16:59 Glucagon (Glucagon Inj) 1 mg UD PRN SQ 02/17/16 17:00 03/18/16 16:59 Miscellaneous (Iv Fluids Completed) 1 ea PRN PRN N/A 02/17/16 19:45 02/16/17 19:44 Enoxaparin Sodium (Lovenox Inj) 141 mg Q12@1000,2200 SQ 02/18/16 14:00 03/19/16 13:59 02/23/16 10:13 141 MG Senna/Docusate Sodium (Senokot S Tab) 1 tab QAM PO 02/20/16 09:00 03/21/16 08:59 02/23/16 08:37 1 TAB Insulin Glargine (Lantus Solostar Pen) 35 unit BID SC 02/22/16 21:00 03/23/16 20:59 02/23/16 08:47 35 UNIT
[2016-02-23] MEDS ORDERED: ULT50X PO (14:27)
[2016-02-23] MEDS ORDERED: NVLGI7030 SC (14:27)
[2016-02-23] MEDS ORDERED: HYDR-5688 PO (14:27)
[2016-02-23] MEDS ORDERED: SENN8.6T7 PO (14:27)
[2016-02-23] MEDS ORDERED: WARF10TA PO (14:27)
[2016-02-23] MEDS ORDERED: LDDP5 TD (14:27)
[2016-02-23] MEDS ORDERED: ASPCH81X PO (14:27)
--- NOTE | 2016-02-23 14:41 | Discharge Instructions ---
Discharge Instructions Admission Reason for Admission: Chest Pain Discharge Discharge Diagnosis / Problem: LEFT SHOULDER PAIN- SUPRASPINATUS TEAR; RIGHT HIP PAIN- OSTEOARTHRITIS Discharge Goals Goal(s): Diagnostic testing, Therapeutic intervention Activity Recommendations Activity Level: Assistance Required Therapies: Physical Therapy, Occupational Therapy WEIGHT BEARING TOLERATED . Additional Information Patient informed of condition: Yes Advance Directives: No (Unknown) DNR: No (Patient is Full Code) Level of Care: Skilled Communicable Disease: No Prognosis: Stable Instructions / Follow-Up Instructions / Follow-Up PLEASE REFER TO ACCOMPANYING DISCHARGE SUMMARY FOR COMPLETE DETAILS. HAS HISTORY OF PULMONARY EMBOLISM.. (+) LOWER ABDOMINAL HEMATOMA; COUMADIN AND ASPIRIN ON HOLD STARTING TODAY. PLEASE REPEAT INR TOMORROW AND DAILY. RESUME COUMADIN AND ASPIRIN SOON HEMATOMA IS STABLE. MONITOR BLOOD GLUCOSE AC AND HS. (WATCH OUT FOR HYPOGLYCEMIA). FOLLOW UP WITH DR. PAK NEXT Monday03/01/16 AT 3:50PM FOLLOW UP WITH ORTHOPEDIC SURGEON DR. LOPEZ IN 1 WEEK. Current Hospital Diet Patient's current hospital diet: Diabetes Type 2 Diet, AHA Diet (Heart Healthy) Discharge Diet Recommended Diet: AHA Diet (Heart Healthy), Diabetes Type 2 Diet (SLIPPERY DIET , THIN LIQUIDS) Pending Studies Studies pending at discharge: yes List of pending studies: REPEAT INR TOMORROW 02/24/16 AND DAILY. Physician Orders On Transfer Special Precautions: PLEASE REFER TO ACCOMPANYING DISCHARGE SUMMARY FOR COMPLETE DETAILS. HAS HISTORY OF PULMONARY EMBOLISM.. (+) LOWER ABDOMINAL HEMATOMA; COUMADIN AND ASPIRIN ON HOLD STARTING TODAY. PLEASE REPEAT INR TOMORROW AND DAILY. RESUME COUMADIN AND ASPIRIN SOON HEMATOMA IS STABLE. MONITOR BLOOD GLUCOSE AC AND HS. (WATCH OUT FOR HYPOGLYCEMIA). FOLLOW UP WITH DR. PAK 03/01/16 AT 3:50PM FOLLOW UP WITH ORTHOPEDIC SURGEON DR. LOPEZ IN 1 WEEK. Additional Orders: BSGS AC AND HS Laboratory Results Hemoglobin A1c Test 02/18/16 07:03 Range/Units Estimated Average Glucose 148 mg/dl Hemoglobin A1c 6.8 H 4.5-5.6 % Medical Emergencies . Who to Call and When: Medical Emergencies: If at any time you feel your situation is an emergency, please call 911 immediately. . Non-Emergent Contact Non-Emergency issues call your: Primary Care Provider . 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 "Provider Documentation" section prepared by Henri Nolan. Core Measure Problem Core Measures: None [place] Drug Monitoring Program Search Results: patient reviewed within database, no issues identified
--- NOTE | 2016-02-23 14:47 | Discharge Summary ---
Discharge Summary Admission Date: Feb 17, 2016 at 15:51 Discharge Date: Feb 23, 2016 Discharge Disposition: halfway facility Principal Diagnosis: LEFT SHOULDER PAIN- SUPRASPINATUS TEAR AND RIGHT HIP- SEVERE OSTEOARTHRITIS Secondary Diagnoses/Problems: Please refer to hospital course below. Procedures: s/p Steroid Injection Left Shoulder; LEFT SHOULDER MRI: 1. Limited study due to patient motion. 2. No acute bony abnormality. 3. Mild degenerative change throughout. 4. Hypertrophic change acromioclavicular joint with a mild amount of contained fluid. 5. Mild fluid within the subdeltoid space. 6. Probable focal tear anterior and/or leading-edge of the supraspinatus with evidence for additional mid substance tendinopathy. RIGHT HIP CT SCAN: FINDINGS: Severe degenerative change of the right hip. Peripheral osteophytic reaction throughout. Virtual loss of the joint space with sclerosis of the articular services as well as acetabular services. No evidence for fracture. No evidence for acetabular protrusion. IMPRESSION: Severe degenerative change. No evidence for fracture. Consultations: Ortho Dr. Brar Pending Studies/Follow-Up: PLEASE REFER TO HOSPITAL COURSE BELOW FOR COMPLETE DETAILS. HAS HISTORY OF PULMONARY EMBOLISM.. (+) LOWER ABDOMINAL HEMATOMA; COUMADIN AND ASPIRIN ON HOLD STARTING TODAY. PLEASE REPEAT INR TOMORROW AND DAILY. RESUME COUMADIN AND ASPIRIN SOON HEMATOMA IS STABLE. MONITOR BLOOD GLUCOSE AC AND HS. (WATCH OUT FOR HYPOGLYCEMIA). FOLLOW UP WITH DR. RYDER NEXT Monday03/01/16 AT 3:50PM FOLLOW UP WITH ORTHOPEDIC SURGEON DR. BRAR IN 1 WEEK. Medication Reconciliation New Medications: Hydrocodone/Acetaminophen 5MG/325MG ([place] 5MG/325MG) Tab 1 TAB PO Q6H PRN for Pain, #10 TAB 0 Refills PRN PAIN Lidocaine (Lidocaine) 1 Patch Tdsy 1 PATCH TD QAM for 15 Days, #15 PATCH 2 Refills Sennosides-Docusate Sodium (Senokot S) 1 Tab Tab 1 TAB PO QAM for 15 Days, #15 TAB 2 Refills Tramadol HCl (Tramadol HCl) 50 Mg Tab 50 MG PO Q6H PRN for Pain, #10 TAB 0 Refills Changed Medications: Aspirin (Aspirin Chewable) 81 Mg Chew 81 MG PO QAM for 30 Days (Medication details modified) HOLD FOR NOW, RESUME SOON LOWER ABDOMINAL HEMATOMA SUBSIDES Insulin Aspart 70/30 (Novolog Mix 70/30) Susp 55 UNITS SC BID for 30 Days, BTL (Changed from: 60 UNITS; QID) TAKES AC AND HS Warfarin Sodium (Coumadin) 10 Mg Tab 10 MG PO QPM for 30 Days, TAB (Changed from: TAKES .5 TAB ON MONDAY AND FRIDAYS TAKES 10MG ALL OTHER DAYS DIRECTED) TAKES .5 TAB ON MONDAY AND FRIDAYS TAKES 10MG ALL OTHER DAYS DIRECTED (HOLD FOR NOW, RESUME SOON HEMATOMA ON THE LOWER ABDOMEN SUBSIDES) Continued Medications: Amlodipine (Norvasc) 5 Mg Tab 5 MG PO QAM, TAB Atorvastatin (Lipitor) 80 Mg Tab 80 MG PO QPM, TAB Carvedilol (Coreg) 12.5 Mg Tab 12.5 MG PO BID, TAB TAKES 3 TABS IN AM TAKES 2 TABS IN PM Ergocalciferol (Vitamin D Cap) 50,000 Interunit Cap 03296 INTER.UNIT PO MONTHLY, CAP Furosemide (Lasix) 40 Mg Tab 40 MG PO QPM, TAB Furosemide (Lasix) 80 Mg Tab 80 MG PO QAM, TAB Lisinopril (Zestril) 40 Mg Tab 40 MG PO QAM, TAB Mirtazapine (Remeron) 15 Mg Tab 15 MG PO HS, #30 Nitroglycerin (Nitrostat) 0.4 Mg Tab 0.4 MG UT PRN PRN for Chest Pain, BTL Omeprazole (Prilosec) 20 Mg Capcr 20 MG PO BID, CAP Potassium Ext Rel (Klor-Con) 20 Meq Tabcr 20 MEQ PO BID, TAB Spironolactone (Aldactone) 25 Mg Tab 0.5 TAB PO QAM, TAB Sucralfate (Carafate) 1 Gm Tab 1 GM PO QID, TAB Trazodone Hcl (Trazodone) 50 Mg Tab 50 MG PO HS, TAB MAY INCREASE UP TO 3TABS NEEDED FOR SLEEP Admission Information HPI (per Admitting provider): 80 year old male with history of CAD/CABG, A fib, DM, HTN, CKD 3, and other problems noted below presenting with left shoulder and right hip pain x 2 days. Patient states that 2 nights ago, he woke up with severe left shoulder pain and right hip pain- to the point that he cannot move his left arm nor ambulate properly. Pain is sharp, stabbing, severe. He denies any history of falls, trauma, lifting. The pain persisted and he has not tried any medication yet. He then went to the ED for evaluation. At the ED, left shoulder xray did not show a fracture and right hip xray showed possible fracture. Cardiac markers negative and EKG did not show any signs of acute ischemia. On my exam ,patient is awake, alert, pleasant. States his pain is severe. NO chest pain, dyspnea, palpitations, dizziness, nausea. No other symptoms. Physical Exam (per Admitting): General Appearance: WD/WN, no apparent distress Head: normocephalic, atraumatic Eyes: normal inspection, PERRL, EOMI, sclerae normal ENT: normal ENT inspection, hearing grossly normal, TMs normal, pharynx normal Neck: supple, no adenopathy, thyroid normal, no JVD, trachea midline Respiratory/Chest: chest non-tender, lungs clear, normal breath sounds, no respiratory distress, no accessory muscle use Cardiovascular: no JVD, no murmur, normal peripheral pulses, + irregularly irregular Abdomen/GI: normal bowel sounds, non tender, soft, no organomegaly Back: normal inspection, no CVA tenderness Extremities/Musculoskelatal: no pedal edema, + pertinent finding ((+) severe tenderness on the left shoulder, poor ROM due to pain, no swelling) Neurologic/Psych: igniter assembler II-XII nml as tested, no motor/sensory deficits, alert , normal mood/affect, normal reflexes, oriented x 3 Skin: normal color, warm/dry, no rash Lymphatic: no adenopathy Hospital Course 80 year old male with history of CAD/CABG, CHF, A fib, DM, HTN, CKD 3, and other problems noted below presenting with left shoulder and right hip pain x 2 days. LEFT SHOULDER PAIN- SUPRASPINATUS TEAR AND RIGHT HIP- SEVERE OSTEOARTHRITIS MRI and CT to r/o Fracture, Tears: (+) rotator cuff tear, no hip fracture, (+) severe arthritis - evaluated by Ortho service Dr. Brar s/p Steroid Injection 02/18/16 - PRN Tramadol, [place], Morphine Lidoderm patch PT/OT: recommend rehab bowel regimen ordered - continues to improve transition to [facility] today, continue PT/OT ff up with Ortho Dr. Brar in 1 week may need right hip surgery HEMATOMA ON THE LOWER ABDOMEN likely from Insulin, Lovenox injections no swelling/fluctuant mass noted - on coumadin for history of pulmonary embolism on coumadin + lovenox for the past few days for subtherapeutic INR INR 1.9 on day of discharge (02/23/16) HOLD coumadin and lovenox today monitor INR daily resume coumadin as soon as possible when hematoma is stable (borders marked on his skin) HISTORY OF CORONARY ARTERY DISEASE/CABG cardiac markers: mildly elevated troponin troponin stable at 0.2-0.3 echo: no significant change from previous echo -- no cardiac symptoms continue Co reg, Lisinopril, Coumadin HOLD aspirin for now, resume as soon as possible when hematoma is stable ( borders marked on his skin) ATRIAL FIBRILLATION continue Co reg management of coumadin as noted above DM TYPE 2 decrease Novolog 70/30 to 55 units BID monitor BSGs AC and HS HYPERTENSION stable continue Amlodipine CHRONIC KIDNEY DISEASE 3 stable OBSTRUCTIVE SLEEP APNEA on CPAP HISTORY OF PULMONARY EMBOLISM on coumadin + lovenox for the past few days for subtherapeutic INR INR 1.9 on day of discharge (02/23/16) HOLD coumadin and lovenox today monitor INR daily resume coumadin as soon as possible when hematoma is stable (borders marked on his skin) DVT prophylaxis was on coumadin + lovenox FULL CODE Disposition d/c to [facility] follow up with Orthopedic Surgeon Dr. Brar in 1 week follow up with PCP Dr. Ryder in 1 week Total time spent on discharge = 60 MINUTES This includes examination of the patient, discharge planning, medication reconciliation, and communication with other providers. Discharge Instructions Discharge Instructions Admission Reason for Admission: Chest Pain Discharge Discharge Diagnosis / Problem: LEFT SHOULDER PAIN- SUPRASPINATUS TEAR; RIGHT HIP PAIN- OSTEOARTHRITIS Discharge Goals Goal(s): Diagnostic testing, Therapeutic intervention Activity Recommendations Activity Level: Assistance Required Therapies: Physical Therapy, Occupational Therapy WEIGHT BEARING TOLERATED . Additional Information Patient informed of condition: Yes Advance Directives: No (Unknown) DNR: No (Patient is Full Code) Level of Care: Skilled Communicable Disease: No Prognosis: Stable Instructions / Follow-Up Instructions / Follow-Up PLEASE REFER TO ACCOMPANYING DISCHARGE SUMMARY FOR COMPLETE DETAILS. HAS HISTORY OF PULMONARY EMBOLISM.. (+) LOWER ABDOMINAL HEMATOMA; COUMADIN AND ASPIRIN ON HOLD STARTING TODAY. PLEASE REPEAT INR TOMORROW AND DAILY. RESUME COUMADIN AND ASPIRIN SOON HEMATOMA IS STABLE. MONITOR BLOOD GLUCOSE AC AND HS. (WATCH OUT FOR HYPOGLYCEMIA). FOLLOW UP WITH DR. RYDER NEXT Monday03/01/16 AT 3:50PM FOLLOW UP WITH ORTHOPEDIC SURGEON DR. BRAR IN 1 WEEK. Current Hospital Diet Patient's current hospital diet: Diabetes Type 2 Diet, AHA Diet (Heart Healthy) Discharge Diet Recommended Diet: AHA Diet (Heart Healthy), Diabetes Type 2 Diet (SLIPPERY DIET , THIN LIQUIDS) Pending Studies Studies pending at discharge: yes List of pending studies: REPEAT INR TOMORROW 02/24/16 AND DAILY. Physician Orders On Transfer Special Precautions: PLEASE REFER TO ACCOMPANYING DISCHARGE SUMMARY FOR COMPLETE DETAILS. HAS HISTORY OF PULMONARY EMBOLISM.. (+) LOWER ABDOMINAL HEMATOMA; COUMADIN AND ASPIRIN ON HOLD STARTING TODAY. PLEASE REPEAT INR TOMORROW AND DAILY. RESUME COUMADIN AND ASPIRIN SOON HEMATOMA IS STABLE. MONITOR BLOOD GLUCOSE AC AND HS. (WATCH OUT FOR HYPOGLYCEMIA). FOLLOW UP WITH DR. RYDER NEXT Monday03/01/16 AT 3:50PM FOLLOW UP WITH ORTHOPEDIC SURGEON DR. BRAR IN 1 WEEK. Additional Orders: BSGS AC AND HS Laboratory Results Hemoglobin A1c Test 02/18/16 07:03 Range/Units Estimated Average Glucose 148 mg/dl Hemoglobin A1c 6.8 H 4.5-5.6 % Medical Emergencies . Who to Call and When: Medical Emergencies: If at any time you feel your situation is an emergency, please call 911 immediately. . Non-Emergent Contact Non-Emergency issues call your: Primary Care Provider . 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 "Provider Documentation" section prepared by Henri Nolan. Core Measure Problem Core Measures: None [place] Drug Monitoring Program Search Results: patient reviewed within database, no issues identified
[2016-06-30] MEDS ORDERED: MULT-506 PO (17:58)
[2016-07-01] MEDS ORDERED: HYDR-5688 PO (15:30)
[2016-07-12] MEDS ORDERED: CHOL100010 IM (08:16)
[2016-07-12] MEDS ORDERED: NVLGI7030 SC (08:17)
[2016-07-14] MEDS ORDERED: CIPR250T3 PO (13:32)
[2016-07-14] MEDS ORDERED: DOXY100C76 PO (13:32)
[2016-07-22] MEDS ORDERED: VNTHFA/IN INH (09:48)
[2016-07-22] MEDS ORDERED: LPR25 PO (09:48)
[2016-07-22] MEDS ORDERED: TRAM-10 PO (09:48)
[2016-07-22] MEDS ORDERED: NUTRMIS PO (09:48)
[2016-07-22] MEDS ORDERED: CMD5 PO (09:48)
[2016-07-22] MEDS ORDERED: HYDR-5688 PO (09:48)
[2016-07-22] MEDS ORDERED: PRED-301 PO (09:48)
[2016-07-22] MEDS ORDERED: LSN20 PO (09:48)
[2016-07-22] MEDS ORDERED: LCTX PO (09:48)
[2016-07-22] MEDS ORDERED: NUTR-1049 PO (09:48)
[2016-07-22] MEDS ORDERED: ASPEC81 PO (09:55)
[2016-08-22] MEDS ORDERED: SULF800T23 PO (08:30)
[2016-09-27] MEDS ORDERED: NVLGI7030 SC (08:17)
[2016-09-27] MEDS ORDERED: NTRGSL/4 UT (11:38)
[2016-09-27] MEDS ORDERED: PRLSR20 PO (11:38)
[2016-09-27] MEDS ORDERED: FRS/40 PO (11:38)
[2016-11-03] MEDS ORDERED: CLIN300C10 (14:29)
[2016-11-03] MEDS ORDERED: CLIN150C15 PO (14:29)
== END 2016-02-23 15:32 ==
LOC: ENRESERVDT → ENRESERVTM → EDBD 12:47 → C.EDB 12:49 → C.MED 15:51
PROVIDERS: ADMIT Internal Medicine; ATTEND Internal Medicine
DX: M19.012 Primary osteoarthritis, left shoulder (principal); S30.1XXA Contusion of abdominal wall, initial encounter; X58.XXXA Exposure to other specified factors, initial encounter; K21.9 Gastro-esophageal reflux disease without esophagitis; I25.10 Atherosclerotic heart disease of native coronary artery without angina pectoris; E78.5 Hyperlipidemia, unspecified; E66.9 Obesity, unspecified; I12.9 Hypertensive chronic kidney disease with stage 1 through stage 4 chronic kidney disease, or unspecified chronic kidney disease; N18.3 Chronic kidney disease, stage 3 (moderate); I48.2 Chronic atrial fibrillation; G47.33 Obstructive sleep apnea (adult) (pediatric); M16.11 Unilateral primary osteoarthritis, right hip; Z79.82 Long term (current) use of aspirin; Z79.899 Other long term (current) drug therapy; Z87.891 Personal history of nicotine dependence; Z79.4 Long term (current) use of insulin; Z86.711 Personal history of pulmonary embolism; Z79.01 Long term (current) use of anticoagulants; Z95.1 Presence of aortocoronary bypass graft

== ENCOUNTER → 2016-02-24 | Outpatient (CLI) | payer OTHER ==
[~2016-02-24] MED LIST changes: +ACET325T96 PO; +ALL300 PO; +ALLO100T PO; +AMX500 PO; +ASCA500 PO; +ASPEC81 PO; +CARV12.5 PO; +CHOL100010 IM; +CIPR1TAB11 PO; +CIPR250T3 PO; +CLIN150C15 PO; +CLIN300C10; +CMD10 PO; +CMD5 PO; +CRG125 PO; +CRS/10 PO; +CYCL10TA6 PO; +DOXY100C76 PO; +ERGO1TAB12 PO; +FRS/40 PO; +FURO40TA3 PO; +HYDR-5688 PO; +LCTX PO; +LDDP5 TD; +LPR25 PO; +LSN20 PO; +MCRK20 PO; +MCTP EXT; +MIRT15TA3 PO; +MULT-506 PO; +MULTTAB PO; +NTRGSL/4 UT; +NUTR-1049 PO; +NUTRMIS PO; +PRED-301 PO; +PRED20TA PO; +PRLSR20 PO; +PROTEIN LIQUID PO; +SENN-65 PO; +SENN8.6T7 PO; +SULF800T23 PO; +TRAM-10 PO; +ULT50X PO; +VNTHFA/IN INH; +VTMD PO; +WARF-237 PO; -ZOLP10TA PO
[2016-02-24 09:12] LABS: INR 1.5 (0.9-1.1); PROTHROMBIN TIME (PATIENT) 16.7 SECONDS (9.0-12.0)
== END ==
LOC: C.LABCC 08:31
PROVIDERS: ATTEND Internal Medicine
DX: I48.91 Unspecified atrial fibrillation (principal)

== ENCOUNTER → 2016-02-25 | Outpatient (CLI) | payer OTHER ==
[2016-02-25 08:08] LABS: HEMATOCRIT 32.1 % (42-52); MEAN CELL VOLUME 90.7 fL (80-100); MEAN CORPUSCULAR HEMOGLOBIN 31.6 pg (25-34); MEAN CORPUSCULAR HGB CONC 34.9 g/dl (32-36); MEAN PLATELET VOLUME 9.6 fL (7.4-10.4); PLATELET COUNT 215 K/uL (130-400); RED BLOOD COUNT 3.54 M/uL (4.7-6.1); WHITE BLOOD COUNT 8.55 K/uL (4.8-10.8)
[2016-02-25 08:15] LABS: BLOOD UREA NITROGEN 68 mg/dl (7-18); BUN/CREATININE RATIO 28.3 (10-20); CALCIUM 8.9 mg/dl (8.5-10.1); CARBON DIOXIDE 20 mmol/L (21-32); CHLORIDE 105 mmol/L (98-107); GLUCOSE 161 mg/dl (70-99); POTASSIUM 4.8 mmol/L (3.5-5.1); SODIUM 137 mmol/L (136-145)
[2016-02-25 08:21] LABS: INR 1.3 (0.9-1.1); PROTHROMBIN TIME (PATIENT) 13.7 SECONDS (9.0-12.0)
== END ==
LOC: C.LABCC 07:43
PROVIDERS: ATTEND Internal Medicine
DX: N18.3 Chronic kidney disease, stage 3 (moderate) (principal); I48.91 Unspecified atrial fibrillation

== ENCOUNTER → 2016-02-29 | Outpatient (CLI) | payer OTHER ==
[2016-02-29 09:22] LABS: INR 1.1 (0.9-1.1); PROTHROMBIN TIME (PATIENT) 11.5 SECONDS (9.0-12.0)
[2016-02-29 09:23] LABS: BLOOD UREA NITROGEN 74 mg/dl (7-18); BUN/CREATININE RATIO 30.7 (10-20); CALCIUM 8.7 mg/dl (8.5-10.1); CARBON DIOXIDE 20 mmol/L (21-32); CHLORIDE 106 mmol/L (98-107); GLUCOSE 109 mg/dl (70-99); POTASSIUM 4.8 mmol/L (3.5-5.1); SODIUM 138 mmol/L (136-145)
== END ==
LOC: C.LABCC 08:44
PROVIDERS: ATTEND Internal Medicine
DX: N18.3 Chronic kidney disease, stage 3 (moderate) (principal); I48.91 Unspecified atrial fibrillation

== ENCOUNTER → 2016-04-01 | Outpatient (CLI) | payer OTHER ==
[2016-04-01 09:17] LABS: BASO % 0.2 %; BASO ABS # 0.01 K/uL (0-0.2); COMPLETE YES; HEMATOCRIT 34.5 % (42-52); IG% 0.2 %; LYMPH % 22.3 %; LYMPH ABS # 1.03 K/uL (1.2-3.4); MEAN CORPUSCULAR HEMOGLOBIN 31.1 pg (25-34); MEAN CORPUSCULAR HGB CONC 34.2 g/dl (32-36); MEAN PLATELET VOLUME 10.1 fL (7.4-10.4); MONO % 11.5 %; NEUT % 62.8 %; PLATELET COUNT 146 K/uL (130-400); RED BLOOD COUNT 3.79 M/uL (4.7-6.1); WHITE BLOOD COUNT 4.61 K/uL (4.8-10.8)
[2016-04-01 09:26] LABS: ALT/SGPT 24 U/L (12-78); BLOOD UREA NITROGEN 86 mg/dl (7-18); BUN/CREATININE RATIO 27.8 (10-20); CALCIUM 8.8 mg/dl (8.5-10.1); CARBON DIOXIDE 18 mmol/L (21-32); CHLORIDE 107 mmol/L (98-107); CHOLESTEROL 255 mg/dl (0-200); GLUCOSE 150 mg/dl (70-99); POTASSIUM 5.5 mmol/L (3.5-5.1); SODIUM 136 mmol/L (136-145); TRIGLYCERIDES 484 mg/dl (0-150)
[2016-04-01 09:27] LABS: INR 3.2 (0.9-1.1)
[2016-04-01 09:39] LABS: ALB/GLOB RATIO 0.7 (0.9-2); ALKALINE PHOSPHATASE 87 U/L (45-117); AST/SGOT 14 U/L (15-37); HDL CHOLESTEROL 32 mg/dl
== END | disposition home or self-care (01) ==
LOC: C.LABCC 08:23
PROVIDERS: ATTEND Internal Medicine
DX: N18.4 Chronic kidney disease, stage 4 (severe) (principal); I25.10 Atherosclerotic heart disease of native coronary artery without angina pectoris; Z86.711 Personal history of pulmonary embolism; Z86.718 Personal history of other venous thrombosis and embolism

== ENCOUNTER → 2016-04-05 | Outpatient (CLI) | payer OTHER ==
[2016-04-05 08:17] LABS: CHOLESTEROL/HDL RATIO 6.9
== END ==
LOC: C.LABCC 07:40
PROVIDERS: ATTEND Internal Medicine
DX: E78.00 Pure hypercholesterolemia, unspecified (principal)

== ENCOUNTER → 2016-04-07 | Outpatient (CLI) | payer OTHER ==
[2016-04-07 09:17] LABS: BLOOD UREA NITROGEN 75 mg/dl (7-18); BUN/CREATININE RATIO 26.6 (10-20); CALCIUM 8.8 mg/dl (8.5-10.1); CARBON DIOXIDE 18 mmol/L (21-32); CHLORIDE 107 mmol/L (98-107); GLUCOSE 120 mg/dl (70-99); POTASSIUM 5.6 mmol/L (3.5-5.1); SODIUM 134 mmol/L (136-145)
[2016-04-07 09:43] LABS: ESTIMATED AVERAGE GLUCOSE 166 mg/dl; HA1C FLAG Normal (Normal)
== END ==
LOC: C.LABCC 08:46
PROVIDERS: ATTEND Internal Medicine
DX: E87.5 Hyperkalemia (principal); N18.9 Chronic kidney disease, unspecified; E11.22 Type 2 diabetes mellitus with diabetic chronic kidney disease

== ENCOUNTER → 2016-04-08 | Outpatient (CLI) | payer OTHER ==
[2016-04-08 08:46] LABS: INR 2.4 (0.9-1.1); PROTHROMBIN TIME (PATIENT) 27.2 SECONDS (9.0-12.0)
[2016-04-08 08:48] LABS: BLOOD UREA NITROGEN 71 mg/dl (7-18); BUN/CREATININE RATIO 27.3 (10-20); CARBON DIOXIDE 17 mmol/L (21-32); CHLORIDE 107 mmol/L (98-107); GLUCOSE 133 mg/dl (70-99); POTASSIUM 5.2 mmol/L (3.5-5.1); SODIUM 134 mmol/L (136-145)
== END ==
LOC: C.LABCC 08:12
PROVIDERS: ATTEND Internal Medicine
DX: I82.409 Acute embolism and thrombosis of unspecified deep veins of unspecified lower extremity (principal); I26.99 Other pulmonary embolism without acute cor pulmonale; N18.3 Chronic kidney disease, stage 3 (moderate)

== ENCOUNTER → 2016-04-11 | Outpatient (CLI) | payer OTHER ==
[2016-04-11 08:44] LABS: BLOOD UREA NITROGEN 48 mg/dl (7-18); BUN/CREATININE RATIO 22.9 (10-20); CALCIUM 9.2 mg/dl (8.5-10.1); CARBON DIOXIDE 22 mmol/L (21-32); CHLORIDE 104 mmol/L (98-107); GLUCOSE 172 mg/dl (70-99); POTASSIUM 4.5 mmol/L (3.5-5.1); SODIUM 136 mmol/L (136-145)
[2016-04-11 08:46] LABS: INR 2.1 (0.9-1.1); PROTHROMBIN TIME (PATIENT) 22.9 SECONDS (9.0-12.0)
== END ==
LOC: C.LABCC 08:13
PROVIDERS: ATTEND Internal Medicine
DX: N18.9 Chronic kidney disease, unspecified (principal); I48.91 Unspecified atrial fibrillation

== ENCOUNTER → 2016-04-18 | Outpatient (CLI) | payer OTHER ==
[2016-04-18 08:48] LABS: BLOOD UREA NITROGEN 40 mg/dl (7-18); BUN/CREATININE RATIO 22.3 (10-20); CALCIUM 8.9 mg/dl (8.5-10.1); CARBON DIOXIDE 18 mmol/L (21-32); CHLORIDE 109 mmol/L (98-107); GLUCOSE 170 mg/dl (70-99); INR 2.5 (0.9-1.1); POTASSIUM 4.2 mmol/L (3.5-5.1); PROTHROMBIN TIME (PATIENT) 27.5 SECONDS (9.0-12.0); SODIUM 141 mmol/L (136-145)
== END ==
LOC: C.LABCC 08:01
PROVIDERS: ATTEND Internal Medicine
DX: I48.91 Unspecified atrial fibrillation (principal)

== ENCOUNTER → 2016-05-02 | Outpatient (CLI) | payer OTHER | LOC: C.LABCC 08:46 | PROVIDERS: ATTEND Internal Medicine | DX: E55.9 Vitamin D deficiency, unspecified (principal) ==

== ENCOUNTER → 2016-05-03 | Outpatient (CLI) | payer OTHER ==
[2016-05-03 18:43] LABS: URINE APPEARANCE CLEAR (CLEAR); URINE BILIRUBIN NEG (NEG); URINE COLOR YELLOW; URINE NITRITE NEG (NEG); URINE SPECIFIC GRAVITY 1.016 (1.000-1.030); UROBILINOGEN NEG (NEG)
[2016-05-03 18:53] LABS: MANUAL MICROSCOPIC REQUIRED? NO; REVIEW REQ? NO
--- NOTE | 2016-05-05 11:41 | CODING QUERY NO DIAGNOSIS ---
TREATMENT RENDERED WITHOUT A DIAGNOSIS To promote full compliance with coding requirements relating to patient care, physician participation is requested in all cases of remote medical coder uncertainty. Please assist us with providing a diagnosis/symptom for the test(s) below: A diagnosis/symptom was not documented on your Order. A valid diagnosis/symptom is required to bill all insurances. Please remember that we are unable to code a diagnosis of rule out, probable, possible, questionable, or suspected. Tests that require a diagnosis: DOS: 05/03/16 * U/A & CULTURE DIAGNOSIS: Provider Signature: Date: Thank you Zuleima Mercado [facility] Information Management Once completed, please kindly fax back to [phone] For questions please call [phone]
== END ==
LOC: C.LABCC 17:42
PROVIDERS: ATTEND Internal Medicine
DX: R41.82 Altered mental status, unspecified (principal); I48.91 Unspecified atrial fibrillation

== ENCOUNTER → 2016-05-03 | Outpatient (CLI) | payer OTHER ==
[2016-05-03 08:48] LABS: INR 3.2 (0.9-1.1); PROTHROMBIN TIME (PATIENT) 35.8 SECONDS (9.0-12.0)
== END ==
LOC: C.LABCC 07:53
PROVIDERS: ATTEND Internal Medicine
DX: I48.91 Unspecified atrial fibrillation (principal)

== ENCOUNTER → 2016-05-18 | Outpatient (CLI) | payer OTHER ==
[~2016-05-18] MED LIST changes: +ALLO300T2 PO; +CEFD300C2 PO; +GABA-112 PO; +IMDSR60 PO; +LISI-725 PO; +LSX80 PO; +MIRT15TA2 PO; +NRN100 PO; +TPRSR50 PO
[2016-05-18 08:27] LABS: INR 3.2 (0.9-1.1); PROTHROMBIN TIME (PATIENT) 36.1 SECONDS (9.0-12.0)
== END ==
LOC: C.LABCC 07:41
PROVIDERS: ATTEND Internal Medicine
DX: I48.91 Unspecified atrial fibrillation (principal)

== ENCOUNTER → 2016-05-26 | Outpatient (CLI) | payer OTHER ==
[2016-05-26 09:01] LABS: INR 3.2 (0.9-1.1); PROTHROMBIN TIME (PATIENT) 35.4 SECONDS (9.0-12.0)
== END ==
LOC: C.LABCC 08:14
PROVIDERS: ATTEND Internal Medicine
DX: I48.91 Unspecified atrial fibrillation (principal)

== ENCOUNTER → 2016-06-03 | Outpatient (CLI) | payer OTHER ==
[2016-06-03 09:06] LABS: PROTHROMBIN TIME (PATIENT) 52.5 SECONDS (9.0-12.0)
[2016-06-03 09:09] LABS: INR 4.6 (0.9-1.1)
== END ==
LOC: C.LABCC 08:02
PROVIDERS: ATTEND Internal Medicine
DX: I48.91 Unspecified atrial fibrillation (principal)

== ENCOUNTER → 2016-06-06 | Outpatient (CLI) | payer OTHER ==
[2016-06-06 08:34] LABS: PROTHROMBIN TIME (PATIENT) 33.1 SECONDS (9.0-12.0)
== END | disposition home or self-care (01) ==
LOC: C.LABCC 07:53
PROVIDERS: ATTEND Internal Medicine
DX: I48.91 Unspecified atrial fibrillation (principal)

== ENCOUNTER → 2016-06-13 | Outpatient (CLI) | payer OTHER ==
[2016-06-13 08:32] LABS: INR 1.3 (0.9-1.1); PROTHROMBIN TIME (PATIENT) 13.6 SECONDS (9.0-12.0)
== END ==
LOC: C.LABCC 07:41
PROVIDERS: ATTEND Internal Medicine
DX: I48.91 Unspecified atrial fibrillation (principal)

== ENCOUNTER 2016-06-17 14:31 | Inpatient (IN) | payer OTHER ==
[~2016-06-17] VITALS: Ht 190.5 cm; Wt 122.5 kg
[~2016-06-17 14:31] MED LIST changes: -ACET325T96 PO; -ALL300 PO; -ALLO100T PO; -ALLO300T2 PO; -AMX500 PO; -ASCA500 PO; -ASPEC81 PO; -CARV12.5 PO; -CEFD300C2 PO; -CHOL100010 IM; -CIPR1TAB11 PO; -CIPR250T3 PO; -CLIN150C15 PO; -CLIN300C10; -CMD10 PO; -CMD5 PO; -CRG125 PO; -CRS/10 PO; -CYCL10TA6 PO; -DOXY100C76 PO; -ERGO1TAB12 PO; -FRS/40 PO; -FURO40TA3 PO; -GABA-112 PO; -IMDSR60 PO; -LCTX PO; -LISI-725 PO; -LPR25 PO; -LSN20 PO; -LSX80 PO; -MCRK20 PO; -MCTP EXT; -MIRT15TA2 PO; -MULT-506 PO; -MULTTAB PO; -NRN100 PO; -NTRGSL/4 UT; -NUTR-1049 PO; -NUTRMIS PO; -PRED-301 PO; -PRED20TA PO; -PRLSR20 PO; -PROTEIN LIQUID PO; -SENN-65 PO; -SULF800T23 PO; -TPRSR50 PO; -TRAM-10 PO; -VNTHFA/IN INH; -VTMD PO; -WARF-237 PO
[2016-06-17] MEDS ORDERED: VTMD PO (15:01)
--- NOTE | 2016-06-17 15:39 | DIAGNOSTIC IMAGING REPORT ---
CHEST ONE VIEW PORTABLE CLINICAL HISTORY: sob dyspnea COMPARISON STUDY: 02/17/2016 FINDINGS: Stable cardiomegaly. Prior median sternotomy. Findings of mild congestive heart failure. IMPRESSION: Mild congestive heart failure. Electronically signed by: Andrew Cherry M.D. 06/17/2016 3:38 PM Dictated Date/Time: 06/17/2016 3:37 PM
[2016-06-17 15:41] LABS: HEMATOCRIT 29.9 % (42-52); MEAN CELL VOLUME 87.7 fL (80-100); MEAN CORPUSCULAR HEMOGLOBIN 27.6 pg (25-34); MEAN CORPUSCULAR HGB CONC 31.4 g/dl (32-36); PLATELET COUNT 204 K/uL (130-400); RED BLOOD COUNT 3.41 M/uL (4.7-6.1)
--- NOTE | 2016-06-17 15:54 | EMERGENCY ROOM VISIT NOTE ---
History Report prepared by Mick: Asia Saldaña Under the Supervision of: Dr. Callum Ortiz M.D. First contact with patient: 15:05 Chief Complaint: EDEMA TO EXTREMITY Stated Complaint: EDEMA History of Present Illness The patient is an 80 year old male who presents to the Emergency Room with complaints of worsening swelling to the arms and legs starting a couple weeks ago. The patient comes from [facility] where he was undergoing rehab. This morning the staff noticed increased swelling in the arms and legs and altered mental status in the patient. He cannot move his legs (they are so heavy) and his arms are slightly more swollen. He has never experienced this much swelling in his extremities before. He reports chills and confusion. He denies any abdominal swelling or SOB. He is on a diuretic and states he is urinating as much as normal. Source of History: patient, nursing staff Onset: couple weeks ago Position: other (extremities) Quality: other (swelling) Timing: worsening Associated Symptoms: + chills, No SOB Note: Pt reports confusion. Pt denies abdominal swelling. Review of Systems See HPI for pertinent positives & negatives. A total of 10 systems reviewed and were otherwise negative. 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 Social History Smoking Status: Never Smoker Marital Status: Housing Status: lives alone Occupation Status: retired Current/Historical Medications Scheduled Amlodipine (Norvasc), 5 MG PO QAM Aspirin (Aspirin Chewable), 81 MG PO QAM Atorvastatin (Lipitor), 80 MG PO QPM Carvedilol (Coreg), 12.5 MG PO BID Ergocalciferol (Vitamin D), 50,000 INTER.UNIT PO MONTHLY Furosemide (Lasix), 40 MG PO QPM Furosemide (Lasix), 80 MG PO QAM Insulin Aspart 70/30 (Novolog Mix 70/30), 55 UNITS SC BID Lidocaine (Lidocaine), 1 PATCH TD QAM Lisinopril (Zestril), 40 MG PO QAM Mirtazapine (Remeron), 15 MG PO HS Omeprazole (Prilosec), 20 MG PO BID Sennosides-Docusate Sodium (Senokot S), 1 TAB PO QAM Spironolactone (Aldactone), 0.5 TAB PO QAM Sucralfate (Carafate), 1 GM PO QID Trazodone Hcl (Trazodone), 50 MG PO HS Warfarin Sodium (Coumadin), 10 MG PO QPM Scheduled PRN Hydrocodone/Acetaminophen 5MG/325MG ([place] 5MG/325MG), 1 TAB PO Q6H PRN for Pain Nitroglycerin (Nitrostat), 0.4 MG UT PRN PRN for Chest Pain Tramadol HCl (Tramadol HCl), 50 MG PO Q6H PRN for Pain Allergies Coded Allergies: NO KNOWN DRUG ALLERGIES (Verified Allergy, Unknown, ., 06/17/16) Physical Exam Vital Signs Date Time Temp Pulse Resp B/P Pulse Ox O2 Delivery O2 Flow Rate FiO2 06/17/16 17:30 98 20 138/73 93 Room Air 06/17/16 16:32 76 20 121/50 94 Room Air 06/17/16 15:38 90 20 95 Room Air 06/17/16 14:44 85 06/17/16 14:41 37.0 88 18 115/58 96 Room Air Physical Exam GENERAL: Patient is in no acute distress. HEENT: No acute trauma, normocephalic atraumatic, mucous membranes moist, no nasal congestion, no scleral icterus. NECK: No stridor, no adenopathy, no meningismus, trachea is midline. LUNGS: Clear to auscultation bilaterally when listening anteriorly, no wheeze, no rhonchi, breath sounds equal. HEART: Irregular rhythm, no murmurs, normal rate. ABDOMEN: Soft, nontender, bowel sounds positive, no hernias, no peritonitis. EXTREMITIES: Significant bilateral pedal edema, no active cellulitis seen, mild edema to upper extremities appreciated. NEUROLOGIC: Occasional mild confusion, does move all extremities, awake alert. SKIN: No rash, no jaundice, no diaphoresis. Medical Decision & Procedures ER Provider Diagnostic Interpretation: X ray results and stated below per my interpretation and radiologist interpretation. Other radiology results and stated below per my review and radiologist interpretation: CHEST ONE VIEW PORTABLE CLINICAL HISTORY: sob dyspnea COMPARISON STUDY: 02/17/2016 FINDINGS: Stable cardiomegaly. Prior median sternotomy. Findings of mild congestive heart failure. IMPRESSION: Mild congestive heart failure. Electronically signed by: Andrew Cherry M.D. 06/17/2016 3:38 PM Dictated Date/Time: 06/17/2016 3:[address] HEAD WITHOUT CONTRAST (CT) CLINICAL HISTORY: Acute change in mental status COMPARISON STUDY: No previous studies for comparison. TECHNIQUE: Axial CT of the brain is performed from the vertex to the skull base. IV contrast was not administered for this examination. CT DOSE: 614.27 mGy.cm FINDINGS: No intra or extra-axial mass lesions are visualized. There is no CT evidence of acute cortical infarction. There is no evidence of midline shift. There is no acute hemorrhage. No calvarial fractures are visualized. There are patchy white matter hypodensities likely on a small vessel basis. There is no evidence of pathologic ventricular dilatation. There is no evidence of acute sinusitis IMPRESSION: No acute intracranial findings Electronically signed by: Josue Martinez M.D. 06/17/2016 4:24 PM Dictated Date/Time: 06/17/2016 4:23 PM ULTRASOUND VENOUS DOPPLER LWR EXT BILA CLINICAL HISTORY: Lower extremity edema COMPARISON STUDY: 02/24/2012 FINDINGS: Real-time and color flow Doppler imaging were performed. Flow was seen within the femoral, popliteal and calf veins with no intraluminal thrombus demonstrated. The saphenous vein is patent. IMPRESSION: No evidence of lower extremity DVT. Electronically signed by: Josue Martinez M.D. 06/17/2016 5:34 PM Dictated Date/Time: 06/17/2016 5:33 PM Laboratory Results 06/17/16 15:24 Red Blood Count 3.41, Mean Corpuscular Volume 87.7, Mean Corpuscular Hemoglobin 27.6, Mean Corpuscular Hemoglobin Concent 31.4, Mean Platelet Volume 9.0, Neutrophils (%) (Auto) 79.6, Lymphocytes (%) (Auto) 7.9, Monocytes (%) (Auto) 10.8, Eosinophils (%) (Auto) 1.4, Basophils (%) (Auto) 0.1, Neutrophils # (Auto ) 9.08, Lymphocytes # (Auto) 0.90, Monocytes # (Auto) 1.23, Eosinophils # (Auto ) 0.16, Basophils # (Auto) 0.01 06/17/16 15:24 Test 06/17/16 15:24 06/17/16 17:51 White Blood Count 11.40 K/uL (4.8-10.8) Red Blood Count 3.41 M/uL (4.7-6.1) Hemoglobin 9.4 g/dL (14.0-18.0) Hematocrit 29.9 % (42-52) Mean Corpuscular Volume 87.7 fL (80-100) Mean Corpuscular Hemoglobin 27.6 pg (25-34) Mean Corpuscular Hemoglobin Concent 31.4 g/dl (32-36) Platelet Count 204 K/uL (130-400) Mean Platelet Volume 9.0 fL (7.4-10.4) Neutrophils (%) (Auto) 79.6 % Lymphocytes (%) (Auto) 7.9 % Monocytes (%) (Auto) 10.8 % Eosinophils (%) (Auto) 1.4 % Basophils (%) (Auto) 0.1 % Neutrophils # (Auto) 9.08 K/uL (1.4-6.5) Lymphocytes # (Auto) 0.90 K/uL (1.2-3.4) Monocytes # (Auto) 1.23 K/uL (0.11-0.59) Eosinophils # (Auto) 0.16 K/uL (0-0.5) Basophils # (Auto) 0.01 K/uL (0-0.2) RDW Standard Deviation 53.0 fL (36.4-46.3) RDW Coefficient of Variation 16.4 % (11.5-14.5) Immature Granulocyte % (Auto) 0.2 % Immature Granulocyte # (Auto) 0.02 K/uL (0.00-0.02) Erythrocyte Sedimentation Rate 67 mm/hr (0-14) Anion Gap 9.0 mmol/L (3-11) Est Creatinine Clear Calc Drug Dose 50.2 ml/min Estimated GFR () 43.2 Estimated GFR (Non- 37.3 BUN/Creatinine Ratio 15.7 (10-20) Calcium Level 8.9 mg/dl (8.5-10.1) Magnesium Level 1.9 mg/dl (1.8-2.4) Total Bilirubin 0.8 mg/dl (0.2-1) Aspartate Amino Transf (AST/SGOT) 27 U/L (15-37) Alanine Aminotransferase (ALT/SGPT) 21 U/L (12-78) Alkaline Phosphatase 104 U/L (45-117) Troponin I 0.017 ng/ml (0-0.045) C-Reactive Protein 16.50 mg/dl (0-0.29) Pro-B-Type Natriuretic Peptide 4300 pg/ml (0-1800) Total Protein 7.0 gm/dl (6.4-8.2) Albumin 2.3 gm/dl (3.4-5.0) Globulin 4.7 gm/dl (2.5-4.0) Albumin/Globulin Ratio 0.5 (0.9-2) Thyroid Stimulating Hormone (TSH) 1.580 uIu/ml (0.300-4.500) Free Thyroxine 1.60 ng/dl (0.80-1.60) Prothrombin Time 21.1 SECONDS (9.0-12.0) Prothromb Time International Ratio 1.9 (0.9-1.1) Activated Partial Thromboplast Time 41.4 SECONDS (21.0-31.0) Partial Thromboplastin Ratio 1.6 Ammonia 23.0 umol/L (11-32) Laboratory results reviewed by me. Medications Administered Medications (Trade) Dose Ordered Sig/Aileen Route Start Time Stop Time Status Last Admin Dose Admin Bumetanide (Bumex IV) 1 mg NOW STAT IV 06/17/16 16:00 06/17/16 16:01 DC 06/17/16 17:36 1 MG Diclofenac Sodium (Voltaren 1% Top Gel) 1 appln Q8 EXT 06/17/16 18:30 07/17/16 18:29 06/17/16 21:21 1 APPLN ECG Indication: altered mental status Rate (beats per minute): 89 Rhythm: atrial fibrillation Findings: other (ST depression in inferior and lateral leads, T-wave inversion in inferior and lateral leads) Comparison ECG Date: 19-Feb-2016 Change: T-wave inversions are new. ED Course 1510: The patient was evaluated in room C1A. A complete history and physical exam was performed. 1600: Bumetanide 1 mg IV. 1714: I discussed the patient's case with FRANCOIS Calderon. The patient will be evaluated for further management. 1743: Upon reexamination the patient is resting comfortably. I discussed results and treatment plan with the patient. He verbalizes agreement and understanding. The patient will be evaluated for further management. Medical Decision Differential diagnoses considered include renal failure, CHF, fluid overload, electrolyte imbalance, anemia, thyroid disorder, infection, DVT. There is a mild leukocytosis which could be consistent with infection or just the stress of his presentation. The patient is anemic with a hemoglobin of 9, this is a drop for him. INR is 1.9 consistent with his Coumadin use. Renal panel testing shows some mild renal insufficiency, no significant electrolyte abnormality requiring correction. There is no hepatitis. The patient appears to be in a euthyroid state. EKG shows A. fib with some ST changes laterally which appear new. Cardiac enzyme testing times one is not consistent with acute cardiac injury. Chest x-ray shows CHF. BNP is elevated consistent with fluid overload. Bilateral lower extremity ultrasound does not show DVT. Brain CT shows no acute bleed or mass effect. Ammonia level is not elevated. Urinalysis is suggestive of infection versus contamination, urine culture and blood cultures are pending. The patient was given IV Bumex. This was given for diuresis. The patient presents fluid overloaded and is in heart failure. I do think admission/observation is warranted. Today, he has even been noted to have a change in mental status. I did speak with the patient and case management. The on-call hospitalist was consulted. Consults Time Called: 170 Consulting Physician: FRANCOIS Calderon Returned Call: [phone] Discussed the patient's case. The patient will be evaluated for further management. Impression Primary Impression: CHF (congestive heart failure) Additional Impressions: Anemia Acute electrocardiogram changes Edema Scribe Attestation The scribe's documentation has been prepared under my direction and personally reviewed by me in its entirety. I confirm that the note above accurately reflects all work, treatment, procedures, and medical decision making performed by me. Departure Information Dispostion Being Evaluated By Hospitalist Referrals Padma Weber (PCP) Patient Instructions My [facility] Problem Qualifiers
[2016-06-17 15:55] LABS: BUN/CREATININE RATIO 15.7 (10-20); CALCIUM 8.9 mg/dl (8.5-10.1); CREATININE 1.7 mg/dl (0.60-1.40); MAGNESIUM 1.9 mg/dl (1.8-2.4); POTASSIUM 4.1 mmol/L (3.5-5.1)
[2016-06-17] MEDS ORDERED: BUMETANIDE SOLN 1 MG/4 ML VIAL IV STA (16:00)
[2016-06-17 16:06] LABS: ALB/GLOB RATIO 0.5 (0.9-2); THYROID STIMULATING HORMONE 1.58 uIu/ml (0.300-4.500)
[2016-06-17 16:25] LABS: BASO % 0.1 %; BASO ABS # 0.01 K/uL (0-0.2); COMPLETE YES; EOS % 1.4 %; IG% 0.2 %; LYMPH % 7.9 %; MONO % 10.8 %; NEUT % 79.6 %
--- NOTE | 2016-06-17 16:25 | DIAGNOSTIC IMAGING REPORT ---
CT HEAD WITHOUT CONTRAST (CT) CLINICAL HISTORY: Acute change in mental status COMPARISON STUDY: No previous studies for comparison. TECHNIQUE: Axial CT of the brain is performed from the vertex to the skull base. IV contrast was not administered for this examination. CT DOSE: 614.27 mGy.cm FINDINGS: No intra or extra-axial mass lesions are visualized. There is no CT evidence of acute cortical infarction. There is no evidence of midline shift. There is no acute hemorrhage. No calvarial fractures are visualized. There are patchy white matter hypodensities likely on a small vessel basis. There is no evidence of pathologic ventricular dilatation. There is no evidence of acute sinusitis IMPRESSION: No acute intracranial findings Electronically signed by: Josue Martinez M.D. 06/17/2016 4:24 PM Dictated Date/Time: 06/17/2016 4:23 PM
--- NOTE | 2016-06-17 17:35 | DIAGNOSTIC IMAGING REPORT ---
ULTRASOUND VENOUS DOPPLER LWR EXT BILA CLINICAL HISTORY: Lower extremity edema COMPARISON STUDY: 02/24/2012 FINDINGS: Real-time and color flow Doppler imaging were performed. Flow was seen within the femoral, popliteal and calf veins with no intraluminal thrombus demonstrated. The saphenous vein is patent. IMPRESSION: No evidence of lower extremity DVT. Electronically signed by: Josue Martinez M.D. 06/17/2016 5:34 PM Dictated Date/Time: 06/17/2016 5:33 PM
[2016-06-17 18:15] LABS: INR 1.9 (0.9-1.1); PARTIAL THROMBOPLASTIN RATIO 1.6; PROTHROMBIN TIME (PATIENT) 21.1 SECONDS (9.0-12.0)
[2016-06-17] MEDS ORDERED: MoRPHine SULFATE 2 MG/ML CARP IV PRN (18:30)
[2016-06-17] MEDS ORDERED: ALUMINUM/MAGNESIUM/SIMETH (MAALOX MAX) 30 ML UDC PO PRN (18:30)
[2016-06-17] MEDS ORDERED: ONDANSETRON INJ 2 MG/ML 2 ML VIAL IV PRN (18:30)
--- NOTE | 2016-06-17 18:35 | History and Physical ---
History & Physical Date & Time of Service: June 17, 2016 at 18:13 Chief Complaint: EDEMA Primary Care Physician: Padma Weber History of Present Illness Source: patient, hospital records This patient is an 80-year-old male, resident of [facility], sent to the emergency department today for possible change in mental status, ambulatory dysfunction and increased swelling to legs. The patient is a poor historian; therefore, the history is somewhat limited. He is currently complaining of feeling cold. He is also complaining of bilateral leg pain that is severe. He denies any nausea. He does have a poor appetite. He also notes some intermittent diarrhea over the last several weeks. He denies any blood in his stool. Denies abdominal pain. He has not been eating or drinking well. The patient has a history of A. fib and PE. He denies any chest pain or pressure. No shortness of breath. His INR is reportedly subtherapeutic. 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 (4) Coronary artery bypass grafting Status: Resolved (5) Deep venous thrombosis Status: Resolved (6) Diabetes mellitus Status: Chronic (7) Hiatal hernia with gastroesophageal reflux disease Status: Chronic (8) History of - pulmonary embolus Status: Chronic (9) History of adenomatous polyp of colon Status: Chronic (10) Hyperlipidemia Status: Chronic (11) Pulmonary embolism Status: Resolved (12) Replacement of total knee joint Status: Resolved Family History No pertinent family history unable to obtain Social History Smoking Status: Never Smoker Marital Status: Housing status: [facility] ([facility]) Occupational Status: retired Immunizations History of Influenza Vaccine: Yes Influenza Vaccine Date: Nov 10, 2014 History of Tetanus Vaccine?: Yes Tetanus Immunization Date: Sep 10, 2008 History of Pneumococcal: Yes Pneumococcal Date: Feb 27, 2014 History of Hepatitis B Vaccine: Unknown Multi-Drug Resistant Organisms History of MDRO: No Allergies Coded Allergies: NO KNOWN DRUG ALLERGIES (Verified Allergy, Unknown, ., 06/17/16) Home Medications Scheduled Amlodipine (Norvasc), 5 MG PO QAM Aspirin (Aspirin Chewable), 81 MG PO QAM Atorvastatin (Lipitor), 80 MG PO QPM Carvedilol (Coreg), 12.5 MG PO BID Ergocalciferol (Vitamin D), 50,000 INTER.UNIT PO MONTHLY Furosemide (Lasix), 40 MG PO QPM Furosemide (Lasix), 80 MG PO QAM Insulin Aspart 70/30 (Novolog Mix 70/30), 55 UNITS SC BID Lidocaine (Lidocaine), 1 PATCH TD QAM Lisinopril (Zestril), 40 MG PO QAM Mirtazapine (Remeron), 15 MG PO HS Omeprazole (Prilosec), 20 MG PO BID Sennosides-Docusate Sodium (Senokot S), 1 TAB PO QAM Spironolactone (Aldactone), 0.5 TAB PO QAM Sucralfate (Carafate), 1 GM PO QID Trazodone Hcl (Trazodone), 50 MG PO HS Warfarin Sodium (Coumadin), 10 MG PO QPM Scheduled PRN Hydrocodone/Acetaminophen 5MG/325MG (Gower 5MG/325MG), 1 TAB PO Q6H PRN for Pain Nitroglycerin (Nitrostat), 0.4 MG UT PRN PRN for Chest Pain Tramadol HCl (Tramadol HCl), 50 MG PO Q6H PRN for Pain Review of Systems 10 system review performed and negative unless noted in HPI or below Physical Exam Vital Signs Date Time Temp Pulse Resp B/P Pulse Ox O2 Delivery O2 Flow Rate FiO2 06/17/16 17:30 98 20 138/73 93 Room Air 06/17/16 16:32 76 20 121/50 94 Room Air 06/17/16 15:38 90 20 95 Room Air 06/17/16 14:44 85 06/17/16 14:41 37.0 88 18 115/58 96 Room Air General Appearance: + moderate distress (in a moderate amount discomfort) Head: normocephalic Eyes: EOMI ENT: + pertinent finding (oral mucosa dry) Neck: no JVD Respiratory/Chest: lungs clear Cardiovascular: + irregularly irregular Abdomen/GI: non tender, soft, + pertinent finding (bowel sounds hypoactive.) Extremities/Musculoskelatal: + pertinent finding (+2 pitting edema with bullae that are weeping clear fluid noted to the lower extremities bilaterally. Some erythema noted to the anterior left fuller. Exquisite tenderness over the right knee with associated warmth and erythema.) Neurologic/Psych: oriented x 3, + pertinent finding (unable to assess motor function. The patient is not following commands. He refuses to move his legs secondary to pain.) Skin: + pertinent finding (discoloration noted to the anterior left fuller.) Diagnostics Laboratory Results Results Past 24 Hours Test 06/17/16 15:24 06/17/16 17:51 Range/Units White Blood Count 11.40 4.8-10.8 K/uL Red Blood Count 3.41 4.7-6.1 M/uL Hemoglobin 9.4 14.0-18.0 g/dL Hematocrit 29.9 42-52 % Mean Corpuscular Volume 87.7 80-100 fL Mean Corpuscular Hemoglobin 27.6 25-34 pg Mean Corpuscular Hemoglobin Concent 31.4 32-36 g/dl Platelet Count 204 130-400 K/uL Mean Platelet Volume 9.0 7.4-10.4 fL Neutrophils (%) (Auto) 79.6 % Lymphocytes (%) (Auto) 7.9 % Monocytes (%) (Auto) 10.8 % Eosinophils (%) (Auto) 1.4 % Basophils (%) (Auto) 0.1 % Neutrophils # (Auto) 9.08 1.4-6.5 K/uL Lymphocytes # (Auto) 0.90 1.2-3.4 K/uL Monocytes # (Auto) 1.23 0.11-0.59 K/uL Eosinophils # (Auto) 0.16 0-0.5 K/uL Basophils # (Auto) 0.01 0-0.2 K/uL RDW Standard Deviation 53.0 36.4-46.3 fL RDW Coefficient of Variation 16.4 11.5-14.5 % Immature Granulocyte % (Auto) 0.2 % Immature Granulocyte # (Auto) 0.02 0.00-0.02 K/uL Sodium Level 136 136-145 mmol/L Potassium Level 4.1 3.5-5.1 mmol/L Chloride Level 100 98-107 mmol/L Carbon Dioxide Level 27 21-32 mmol/L Anion Gap 9.0 3-11 mmol/L Blood Urea Nitrogen 27 7-18 mg/dl Creatinine 1.70 0.60-1.40 mg/dl Est Creatinine Clear Calc Drug Dose 50.2 ml/min Estimated GFR () 43.2 Estimated GFR (Non- 37.3 BUN/Creatinine Ratio 15.7 10-20 Random Glucose 244 70-99 mg/dl Calcium Level 8.9 8.5-10.1 mg/dl Magnesium Level 1.9 1.8-2.4 mg/dl Total Bilirubin 0.8 0.2-1 mg/dl Aspartate Amino Transf (AST/SGOT) 27 15-37 U/L Alanine Aminotransferase (ALT/SGPT) 21 12-78 U/L Alkaline Phosphatase 104 45-117 U/L Troponin I 0.017 0-0.045 ng/ml Pro-B-Type Natriuretic Peptide 4300 0-1800 pg/ml Total Protein 7.0 6.4-8.2 gm/dl Albumin 2.3 3.4-5.0 gm/dl Globulin 4.7 2.5-4.0 gm/dl Albumin/Globulin Ratio 0.5 0.9-2 Thyroid Stimulating Hormone (TSH) 1.580 0.300-4.500 uIu/ml Free Thyroxine 1.60 0.80-1.60 ng/dl Microbiology Results 06/17/16 Blood Culture, Received Pending 06/17/16 Blood Culture, Received Pending Diagnostic Radiology Patient Name: ZAN SANCHEZ Unit Number: [id number] Dictated: 06/17/161622 Transcribed: 06/17/161622 ARG Printed Date/Time: [~ rep prt dt]/[~ rep prt tm] [~ rep ct labl] - [~ rep ct ivnm] [facility] [place] [address] Dictated: 06/17/161622 Transcribed: 06/17/161622 ARG Printed Date/Time: [~ rep prt dt]/[~ rep prt tm] [~ rep ct labl] - [~ rep ct ivnm] Patient: ZAN SANCHEZ Address1: [address] [place] [address] Rec: [id number] Address2: [facility] Acct ID: [id number] [facility] Zip: [place] [address] Date: 1935 Sex: M Room/Bed: Ref Phy: [place] [place] SC: [facility] Att Phy: Report #: [id number] Nara Phy: [facility] Test: HWO Admit Phy: [employer] Co[employer] Sewer: LUIS Interpreting Phy: Josue Martinez M.D. Diagnosis: EDEMA Ordering Phy: Callum Ortiz M.D. Service Date: 06/17/16 Admit Date: 06/17/16 MNE: [id number] CONF: DICTATED BY: Josue Martinez M.D.]] CC: [facility] Callum Ortiz M.D. Endcc: [~ rep ct add3]] CT HEAD WITHOUT CONTRAST (CT) CLINICAL HISTORY: Acute change in mental status COMPARISON STUDY: No previous studies for comparison. TECHNIQUE: Axial CT of the brain is performed from the vertex to the skull base. IV contrast was not administered for this examination. CT DOSE: 614.27 mGy.cm FINDINGS: No intra or extra-axial mass lesions are visualized. There is no CT evidence of acute cortical infarction. There is no evidence of midline shift. There is no acute hemorrhage. No calvarial fractures are visualized. There are patchy white matter hypodensities likely on a small vessel basis. There is no evidence of pathologic ventricular dilatation. There is no evidence of acute sinusitis IMPRESSION: No acute intracranial findings Electronically signed by: Josue Martinez M.D. 06/17/2016 4:24 PM Dictated Date/Time: 06/17/2016 4:23 PM The status of this report is Signed. Draft = Not yet reviewed or approved by Radiologist. Signed = Reviewed and approved by Radiologist. <AttendingPhy></AttendingPhy> <FamilyPhy>[facility]</FamilyPhy> <PrimaryPhy> [facility]</PrimaryPhy> <UnitNumber>[id number]</UnitNumber> <VisitNumber> [id number]</VisitNumber> <PatientName>ZAN SANCHEZ</PatientName> < DateOfBirth>1935</DateOfBirth> <Location>RE[facility]</Location> <ServiceDate>06/29</ServiceDate> <MNE>ESINDI</MNE> <OrderingPhy>Callum Ortiz M.D.</ OrderingPhy> <OrderingPhyMNE>f rep ord dr lema</OrderingPhyMNE> <DictatingPhyMNE> f rep dict dr lema</DictatingPhyMNE> <CCListMNE>f rep ct mne</CCListMNE> < AdmittingPhyMNE>f pt admit dr lema</AdmittingPhyMNE> <AttendingPhyMNE>f pt attend dr lema</AttendingPhyMNE> <ConsultingPhyMNE>f pt consult dr lema</ConsultingPhyMNE> <FamilyPhyMNE>f pt fam dr lema</FamilyPhyMNE> <OtherPhyMNE>f pt other dr lema</OtherPhyMNE> < PrimaryPhyMNE>f pt prim care dr lema</PrimaryPhyMNE> <ReferringPhyMNE>f pt referring dr lema</ReferringPhyMNE> Patient: ZAN SANCHEZ Address1: [address] [place] [address] Rec: [id number] Address2: [facility] Acct ID: [id number] [facility] Zip: [place] [address] Date: 1935 Sex: M Room/Bed: Ref Phy: [facility] SC: [facility] Att Phy: Report #: [id number] Nara Phy: [facility] Test: [id number] Admit Phy: [employer] Sewer: ERIN Interpreting Phy: Andrew Cherry M.D. Diagnosis: EDEMA Ordering Phy: Callum Ortiz M.D. Service Date: 06/17/16 Admit Date: 06/17/16 MNE: PWRSCRIBE CONF: DICTATED BY: Andrew Cherry M.D.]] CC: [facility] Callum Ortiz M.D. Endcc: [~ rep ct add3]] CHEST ONE VIEW PORTABLE CLINICAL HISTORY: sob dyspnea COMPARISON STUDY: 02/17/2016 FINDINGS: Stable cardiomegaly. Prior median sternotomy. Findings of mild congestive heart failure. IMPRESSION: Mild congestive heart failure. Electronically signed by: Andrew Cherry M.D. 06/17/2016 3:38 PM Dictated Date/Time: 06/17/2016 3:37 PM The status of this report is Signed. Draft = Not yet reviewed or approved by Radiologist. Signed = Reviewed and approved by Radiologist. <AttendingPhy></AttendingPhy> <FamilyPhy>[facility]</FamilyPhy> <PrimaryPhy> [facility]</PrimaryPhy> <UnitNumber>[id number]</UnitNumber> <VisitNumber> [id number]</VisitNumber> Patient Name: ZAN SANCHEZ Unit Number: [id number] Dictated: 06/17/161732 Transcribed: 06/17/161732 ARG Printed Date/Time: [~ rep prt dt]/[~ rep prt tm] [~ rep ct labl] - [~ rep ct ivnm] [facility] [place] [address] Dictated: 06/17/161732 Transcribed: 06/17/161732 ARG Printed Date/Time: [~ rep prt dt]/[~ rep prt tm] [~ rep ct labl] - [~ rep ct ivnm] ULTRASOUND VENOUS DOPPLER LWR EXT BILA CLINICAL HISTORY: Lower extremity edema COMPARISON STUDY: 02/24/2012 FINDINGS: Real-time and color flow Doppler imaging were performed. Flow was seen within the femoral, popliteal and calf veins with no intraluminal thrombus demonstrated. The saphenous vein is patent. IMPRESSION: No evidence of lower extremity DVT. Electronically signed by: Josue Martinez M.D. 06/17/2016 5:34 PM Dictated Date/Time: 06/17/2016 5:33 PM The status of this report is Signed. Draft = Not yet reviewed or approved by Radiologist. Signed = Reviewed and approved by Radiologist. <AttendingPhy></AttendingPhy> <FamilyPhy>[facility]</FamilyPhy> <PrimaryPhy> [facility]</PrimaryPhy> <UnitNumber>[id number]</UnitNumber> <VisitNumber> [id number]</VisitNumber> <PatientName>ZAN SANCHEZ</PatientName> < DateOfBirth>1935</DateOfBirth> <Location>REESE</Location> <ServiceDate>06/29</ServiceDate> <MNE>ESINDI</MNE> <OrderingPhy>Callum Ortiz M.D.</ OrderingPhy> <OrderingPhyMNE>f rep ord dr torey</OrderingPhyMNE> <DictatingPhyMNE> f rep dict dr lema</DictatingPhyMNE> <CCListMNE>f rep ct torey</CCListMNE> < AdmittingPhyMNE>f pt admit dr lema</AdmittingPhyMNE> <AttendingPhyMNE>f pt attend dr lema</AttendingPhyMNE> <ConsultingPhyMNE>f pt consult dr lema</ConsultingPhyMNE> <FamilyPhyMNE>f pt fam dr lema</FamilyPhyMNE> <OtherPhyMNE>f pt other dr lema</OtherPhyMNE> < PrimaryPhyMNE>f pt prim care dr lema</PrimaryPhyMNE> <ReferringPhyMNE>f pt referring dr lema</ReferringPhyMNE> EKG Atrial fibrillation 89 bpm Q waves noted in the septal leads Impression Assessment and Plan 80-year-old male sent to the emergency department with increased lower extremity edema and ambulatory dysfunction. Reportedly lethargic and possible altered mental status. Lower extremity edema with associated erythema and tenderness bilaterally.-? Infectious versus venous insufficiency vs gout vs CHF -Admit to medical floor -ESR, CRP, procalcitonin-->pending results +/- ABX -consider ortho consult to arthrocentesis to r/o septic joint if inflammatory markers are up -follow CBC -continue lasix 20 mg po BID -wound care consult -Strict I's and O's -Daily weights -PT/OT -Morphine 2 mg every 2 hours as needed for severe pain -Percocet 1 tab every 4 hours for less severe pain History of pulmonary embolism/DVT-no DVT noted on ultrasound today -Continue outpatient dose of warfarin 5 mg daily -Monitor PT/INR ?Altered mental status-seems to be oriented on exam-CT head neg. Coronary artery disease status post CABG/A. fib-rate controlled. No angina. -Continue aspirin 81 mg daily, carvedilol 37.5 mg in the morning and 25 mg at night, Lisinopril 40 mg daily Chronic kidney disease stage III-creatinine at baseline Diabetes mellitus -Insulin sliding scale -Follow BSG's -We will adjust therapy pending trending blood sugars Severe osteoarthritis -Continue lidocaine patch and Voltaren gel as needed Diarrhea -C diff -stool cx DVT prophylaxis -coumadin -TEDS, SCDs CODE STATUS -LEVEL I FULL CODE i personally examined pt and verified all peralta points w A [facility] PAC difficult history - unclear exactly what his main complaints are - was sent due to concern on edema, does not appear sob. cc to us is "i can't touch my legs together" relates R leg pain ros difficult but otherwise negative except for as above o vitals noted, laying flat with no sob at the time of my exam. slightly flushed but not diaphoretic. no tachypnea no respiratory distress. b/l LE edema equal in amount b/l, R leg appearing slightly more bright pink than L but equally tender both sides, no true erythema no exudative lesions, does have multiple areas of skin breakdown. R knee arthritic changes along joint line but nontender, ROM limited in extension - can't straighten out entirely by about ?10 degrees - no significant pain on PROM attempt at extension - but hit a hard barrier that examines arthritic. no effusion. R leg distal quad area laterally slightly pink/red but very light, quite tender but no fluctuance or crepitis. doesn't seem to change pain with movement as much as with palpation. somewhat confused at the time of my exam - notes "it's funny, i can't believe i can get a [employer] burger here" - asked him to clarify - he repeats. then remind him he's in the hospital, he notes, "yeah, but on my way in they gave me a [employer] burger" then notes he's been here "about a day" and then says "yeah , but i know i'm losing it" a/p metabolic encephalopathy / delirium -?underlying etiology -not clear sepsis, although flushing, CRP would point in this direction -legs not clearly cellulitis, overall fairly equal, not overtly erythematous; no signs of septic joint. follow for evolution - when/if cellulitis becomes clear would start abx promptly - follow for now --no s/s pneumonia, UTI (although due to common frequnecy of UTI - checking urine culture) --await blood cultures --follow vitals --serial exams, serial labs R knee pain -his stated CC, while vague, seems to center on leg pain and limited ROM -will ask ortho to eval - especially in regards to distal quad area that seems to be very bothersome and fairly painful otherwise as above Level of Care Med/Surg Resuscitation Status FULL RESUSCITATION VTE Prophylaxis VTE Risk Assessment Done? Y/N: Yes Risk Level: Moderate Given or contraindicated: Warfarin (Coumadin)
[2016-06-17] MEDS ORDERED: GLUCOSE 10 TABS/TUBE PO PRN (19:00)
[2016-06-17] MEDS ORDERED: GLUCAGON FOR INJ 1 MG VIAL SQ PRN (19:00)
[2016-06-17] MEDS ORDERED: DEXTROSE 50% 50 ML SYR IV PRN (19:00)
[2016-06-17] MEDS ORDERED: GLUCOSE 40% GEL 15 GM TUBE PO PRN (19:00)
[2016-06-17 19:42] VITALS: BP 107/73; PULSE 114; TEMP 36.9; O2SAT 98
[2016-06-17] MEDS ORDERED: CARVEDILOL 12.5 MG TAB PO SCH (20:00)
[2016-06-17 21:14] LABS: MANUAL MICROSCOPIC REQUIRED? NO; REVIEW REQ? YES; URINE APPEARANCE TURBID (CLEAR); URINE BILIRUBIN NEG (NEG); URINE COLOR YELLOW; URINE EPITHELIAL CELL AUTO >30 /lpf (0-5); URINE NITRITE NEG (NEG); URINE SPECIFIC GRAVITY 1.013 (1.000-1.030); UROBILINOGEN NEG (NEG)
[2016-06-17] MEDS: DICLOFENAC SOD 1% GEL 100 GM TUBE EXT SCH ×2 (21:21→23:30)
[2016-06-17] MEDS: ATORVASTATIN 40 MG TAB PO SCH (21:26)
[2016-06-17] MEDS: TRAZODONE HCL 50 MG TAB PO SCH (21:26)
[2016-06-17] MEDS: PANTOprazole SOD 40 MG TAB PO SCH (21:26)
[2016-06-17] MEDS: MIRTAZAPINE TAB 15 MG TAB PO SCH (21:27)
[2016-06-17] MEDS: INSULIN ASPART 100 UNITS/ML 3 ML PEN SC SCH (21:29)
[2016-06-17 22:38] VITALS: BP 107/73; PULSE 114; TEMP 36.9; O2SAT 98; BMI 34.6
[2016-06-18] VITALS (10 sets, daily range): BP systolic 99–147; BP diastolic 61–81; PULSE 76–89; TEMP 36.5–37.6; O2SAT 91–96
[2016-06-18] MEDS: OXYCODONE/ACETAMINOPHEN 5-325 TAB PO PRN ×2 (00:57→19:42)
[2016-06-18] MEDS ORDERED: NURSING DECISION MEDICATION ORDER SCH (03:15)
[2016-06-18] MEDS ORDERED: MICONAZOLE NITRATE POWDER 43 GM EXT PRN (03:30)
[2016-06-18 03:40] LABS: CKMB/CK RATIO 1.6 (0-3.0)
[2016-06-18] MEDS: DICLOFENAC SOD 1% GEL 100 GM TUBE EXT SCH ×3 (06:14→20:45)
[2016-06-18 07:30] LABS: BASO % 0.1 %; BASO ABS # 0.01 K/uL (0-0.2); EOS % 3.2 %; HEMATOCRIT 27.8 % (42-52); IG% 0.2 %; LYMPH % 9.8 %; LYMPH ABS # 0.81 K/uL (1.2-3.4); MEAN CELL VOLUME 86.9 fL (80-100); MEAN CORPUSCULAR HEMOGLOBIN 27.5 pg (25-34); MEAN CORPUSCULAR HGB CONC 31.7 g/dl (32-36); MEAN PLATELET VOLUME 8.9 fL (7.4-10.4); MONO % 11.4 %; NEUT % 75.3 %; PLATELET COUNT 183 K/uL (130-400); WHITE BLOOD COUNT 8.24 K/uL (4.8-10.8)
[2016-06-18 07:38] LABS: INR 1.9 (0.9-1.1); PROTHROMBIN TIME (PATIENT) 21.4 SECONDS (9.0-12.0)
[2016-06-18] MEDS ORDERED: LISINOPRIL 40 MG TAB PO SCH (08:00)
[2016-06-18 08:07] LABS: BUN/CREATININE RATIO 19.6 (10-20); CALCIUM 8.6 mg/dl (8.5-10.1); CREATININE 1.4 mg/dl (0.60-1.40); POTASSIUM 3.3 mmol/L (3.5-5.1)
[2016-06-18 08:14] LABS: COMPLETE YES
[2016-06-18] MEDS: INSULIN ASPART 100 UNITS/ML 3 ML PEN SC SCH ×4 (08:14→20:44)
[2016-06-18] MEDS: PANTOprazole SOD 40 MG TAB PO SCH ×2 (08:16→20:43)
[2016-06-18] MEDS: CARVEDILOL 12.5 MG TAB PO SCH ×2 (08:17→20:41)
[2016-06-18] MEDS: LISINOPRIL 20 MG TAB PO SCH (08:18)
[2016-06-18] MEDS: ASPIRIN 81 MG CHEW PO SCH (08:18)
[2016-06-18] MEDS: LIDODERM (LIDOCAINE) PATCH 5% TD SCH (08:20)
[2016-06-18 09:35] LABS: SYNOVIAL FLUID APPEARANCE CLOUDY; SYNOVIAL FLUID COLOR YELLOW; SYNOVIAL FLUID MONONUC RELAT 3.8 %; SYNOVIAL FLUID POLYNUC RELAT 96.2 %
--- NOTE | 2016-06-18 09:45 | ORTHOPEDIC CONSULTATION ---
DATE OF CONSULTATION: 06/18/2016 DATE OF CONSULTATION: 06/18/2016. CHIEF COMPLAINT: Ambulatory dysfunction and leg pain. HISTORY OF PRESENT ILLNESS: The patient is an 80-year-old male with multiple comorbidities, currently a resident [facility] [place] who was admitted for change in mental status and ambulatory dysfunction and swelling of his legs. He was admitted by the medicine service and we were consulted for his leg pain. He is a very poor historian. He has got multiple comorbidities. I did review our reports and I did see him one time in our office back in February for right hip pain. He has got advanced right hip arthritis but felt not to be in a reasonable surgical candidate. He does report right knee pain. Denies any left knee pain. He did have his left knee replaced by Dr. Lovelace back in 2007. He had his right knee scoped by Dr. Lovelace in 2009. He does report pain in his knee. He does not really report any groin or hip pain today. PAST MEDICAL HISTORY: Significant for: 1. Atrial fibrillation on Coumadin. 2. Hypertension. 3. Coronary artery disease status post coronary artery bypass grafting. 4. DVT with a history of PE. 5. Hiatal hernia. 6. Diabetes mellitus. 7. Elevated cholesterol. The remainder of the past medical history is per the admission H\T\P. OBJECTIVE: VITAL SIGNS: Temperature is 36.6. Vital signs stable. PHYSICAL EXAMINATION: GENERAL: Reveals elderly, very debilitated and medically compromised gentleman who is lying in bed. He is a fairly poor historian but does respond to questions, but takes some probing. EXTREMITIES: Examination of the left leg reveals the incision from the knee replacement as well as a more obliquely medial incision. He does look like he has got a flexion contracture about 15 degrees and flex to 90. He has got no significant knee effusion. No major edema or swelling in his leg. Examination of the right leg reveals very stiff knee as well. He has got a 15 degree flexion contracture and flexion to 90 degrees. He does have some pain with this as well as pain and stiffness with hip motion. Small knee effusion. He is neurologically stable. There is no real redness or warmth. He did have Doppler study which was negative. LABORATORY DATA: His laboratory results reveal elevated white cell count on admission, but it is back down to normal today at 8.24. Hemoglobin 8.8, hematocrit 27.4. Sed rate is 67, C-reactive protein is elevated at 16.50. Creatinine is elevated at 1.7. INR is 1.9. ASSESSMENT: An 80-year-old male with multiple underlying medical problems and comorbidities status post a left knee replacement with lower extremity pain on the right side, most consistent with degenerative arthritis. He has got a known history of knee as well as hip arthritis on this side. He is not a real good surgical candidate. With his elevated sed rate and C-reactive protein I guess the big issue is is there infection. Clinically, there does not look infected, but we will aspirate the joint and send it off for analysis. The differential most likely with respect to the knee includes degenerative arthritis versus gout versus pseudogout versus infection. I think it is unlikely he has got an infection but we will aspirate this and sent it off for analysis. He may have some component of PMR as a source of his elevated ESR and CRP. He can be mobilized as tolerated. No other restrictions from the orthopedic standpoint. PROCEDURE: The patient's right knee was prepped with alcohol. I did aspirate his knee for about 20 mL of slightly inflammatory fluid. There was certainly no gross pus but could be consistent with some pseudogout most likely. We will send this off for stat Gram stain, aerobic and anaerobic culture as well as cell count with differential. If it does show a gout or pseudogout he might be a candidate for injection treatment. Any orthopedic questions can be directed to me at [phone]. [facility]
[2016-06-18] MEDS ORDERED: PERFLUTREN LIPID MICROSPHERE (DEFINITY) IV ONE (10:27)
--- NOTE | 2016-06-18 11:00 | CARDIOLOGY CONSULTATION ---
DATE OF CONSULTATION: 06/18/2016 DATE OF CONSULTATION: 06/18/2016. REFERRING PHYSICIAN: Dr. Lynsey Cast. REASON FOR CONSULTATION: Elevated troponin. HISTORY OF PRESENT ILLNESS: Mr. Macedo is a complex 80-year-old gentleman who has been residing at [facility] for the past 70 days after a hospitalization for rotator cuff tear. The patient was sent to the Emergency Department on 06/17/2016 secondary to edema and altered mental status. The patient admits to feeling confused and being in "another world" prior to coming to the Emergency Room. He denies any chest pain or unusual shortness of breath. He typically follows with Dr. Сергей Glover of our cardiology practice for complex cardiovascular history listed below. The patient denies orthopnea or PND. He feels his edema has improved with IV diuretic therapy during hospitalization. His chest x-ray demonstrates mild pulmonary vascular congestion. Admits to poor appetite and weight loss over the past 2 months. He has bilateral heel ulcers and admits to spending majority of his time in bed. He feels weak and is disappointed with his lack of progression at [facility]. Currently, he is resting comfortably. He tolerated his a.m. meal. His troponin was found to be elevated at 1.45. The bus monitor demonstrates atrial fibrillation with adequate rate control. He is otherwise hemodynamically stable. He is not confused at this time. His cultures are pending. Offers no other complaints currently. REVIEW OF SYSTEMS: The pertinent positives are noted above. Comprehensive 10-system review is otherwise negative. PAST MEDICAL HISTORY: 1. Chronic coronary disease, status post coronary artery bypass grafting x5 in September 1994. 2. 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 3. Chronic atrial fibrillation on chronic anticoagulation. 4. Pulmonary embolus diagnosed in 2012. 5. Hypertension. 6. Dyslipidemia. 7. Diabetes with diabetic neuropathy and gastroparesis. 8. Obstructive sleep apnea on CPAP and oxygen supplementation. 9. Veloz's esophagus. 10. Dyslipidemia. PAST SURGICAL HISTORY: 1. Total knee replacement. 2. Coronary artery bypass grafting 1994. FAMILY HISTORY: Negative for premature CAD or sudden cardiac ; however, noncontributory. SOCIAL HISTORY: Distant former tobacco abuse, quitting more than 50 years ago. ALLERGIES: LISTED TO THIOPENTAL. CURRENT OUTPATIENT MEDICATIONS: As taken from the ER medication reconciliation list: 1. Amlodipine 5 mg daily. 2. Aspirin 81 mg daily. 3. Atorvastatin 80 mg daily. 4. Carvedilol 12.5 mg twice daily. 5. Furosemide 40 mg in the p.m., 80 mg in the morning. 6. 70/30 insulin 55 units subQ b.i.d. 7. Lidocaine patch. 8. Zestril 40 mg daily. 9. Remeron 15 mg at bedtime. 10. Prilosec 20 mg twice daily. 11. Aldactone 12.5 mg daily. 12. Carafate 1 gram q.i.d. 13. Trazodone 50 mg at bedtime. 14. Coumadin 10 mg as directed by anticoagulation clinic. 15. PRN hydrocodone/acetaminophen, Nitrostat, tramadol. EKG changes: According to Dr. Glover's most recent note in October 2015 the patient was taking 37.5 mg of carvedilol in the morning and 25 mg in the evening. IMAGING: Chest x-ray demonstrates mild pulmonary vascular congestion. CT of the head, no acute intracranial findings. Lower extremity venous duplex negative for DVT. LABORATORY DATA: White blood cell count on admission 11.40, hemoglobin 9.4 and platelet count 204. His hemoglobin this morning is 8.8. His sedimentation rate is 67. Sodium is 138, potassium is 3.3, chloride is 102, CO2 is 29, BUN is 27, creatinine is 1.40. Glucose is 212. Initial troponin 0.0173, peak troponin of 1.450, his third troponin is pending at this time. INR today is 1.9. Telemetry demonstrates atrial fibrillation with controlled ventricular response. ECG this morning demonstrates atrial fibrillation, incomplete left bundle branch block, age indeterminate inferior infarct, ST-T wave abnormality, cannot exclude anterolateral ischemia. PHYSICAL EXAMINATION: VITAL SIGNS: Temperature is 36.6 degrees centigrade, pulse 79 beats per minute and regular, respiratory rate 20 breaths per minute, blood pressure 117/70, SaO2 is 95% on room air. GENERAL: Chronically ill, awake and alert. THROAT: His mucous membranes are moist. No scleral icterus. Conjunctivae are pink. NECK: Supple. There is no JVD or HJR. There is no carotid bruit. HEART: Irregular with a normal S1 and S2. There is a 1/6 holosystolic murmur heard best at the apex. ABDOMEN: Soft and nontender. There is no rebound or guarding. EXTREMITIES: Warm and dry without clubbing. There is no significant edema. There are bilateral heel ulcers noted. NEUROLOGIC EXAMINATION: Demonstrates no focal motor deficit. FINAL IMPRESSIONS: 1. Complex 80-year-old patient admitted with change in mental status and subjective edema. He was found to have mildly elevated troponin without symptomatic chest pain. ECG demonstrates an incomplete left bundle branch block pattern with ST-T wave abnormality. 2. Chronic coronary disease, history of coronary artery bypass grafting x5. 3. Chart history of chronic class 2-3 angina pectoris. 4. Chronic atrial fibrillation -- rate controlled with subtherapeutic INR. 5. Chronic heart failure with mild systolic dysfunction and reported mild decompensation on admission treated with 1 dose of intravenous Bumex with subsequent improvement of volume status. Currently patient does not appear volume overloaded. 6. Chronic kidney disease stage III-IV with acute on chronic renal insufficiency on admission. Creatinine trending downward today. 7. New onset anemia of unclear etiology. 8. Significant involuntary weight loss over the past 6 months. 9. Longstanding diabetes type 2. 10. Obstructive sleep apnea. 11. History of pulmonary embolus. 12. Dyslipidemia. 13. Elevated white blood cell count and sedimentation rate -- rule out infectious process. PLAN AND RECOMMENDATIONS: Case discussed at length with the hospitalist service. I will repeat troponin x1 now. A repeat resting 2D transthoracic echo has also been ordered. Consider cautious addition of IV heparin infusion. Will continue telemetry monitoring. Carvedilol has been increased to 18.75 mg twice daily, this dose is lower than the reported dose in October, however, blood pressure and heart rate appear controlled. Coumadin will be continued at this time. Hold oeral diuretic therapy today. Will continue to follow daily BMP, fluid balance, and daily weights. Thank you for allowing me to take part in the care of your patient. I will continue to follow closely during hospitalization. [facility] AREA HOSPITALBaldomero
[2016-06-18 11:31] LABS: FERRITIN 486.3 ng/ml (8.0-388.0)
[2016-06-18 13:35] LABS: CKMB/CK RATIO 1.8 (0-3.0)
--- NOTE | 2016-06-18 13:37 | Hospitalist Progress Note ---
Hospitalist Progress Note Date of Service June 18, 2016. Subjective pain is better but still present. points to groin area on right side. feeling hungry and waiting for his meal Objective Vital Signs Date Time Temp Pulse Resp B/P Pulse Ox O2 Delivery O2 Flow Rate FiO2 06/18/16 12:00 95 Room Air 06/18/16 11:39 36.6 76 18 128/73 95 06/18/16 08:00 Room Air 06/18/16 07:58 36.6 79 20 117/70 95 Room Air 06/18/16 05:20 36.5 77 19 121/69 96 Room Air 06/18/16 05:02 36.8 87 20 91 0.0 06/18/16 04:29 36.8 82 20 99/62 91 Room Air 06/18/16 00:00 36.7 78 20 117/81 94 Room Air 06/18/16 00:00 94 Room Air 06/17/16 22:38 36.9 114 18 107/73 98 Room Air 06/17/16 19:42 36.9 114 18 107/73 98 Room Air 06/17/16 19:09 98 20 140/72 95 06/17/16 17:30 98 20 138/73 93 Room Air 06/17/16 16:32 76 20 121/50 94 Room Air 06/17/16 15:38 90 20 95 Room Air 06/17/16 14:44 85 06/17/16 14:41 37.0 88 18 115/58 96 Room Air Physical Exam General Appearance: no apparent distress (resting comfortably in bed) Respiratory/Chest: lungs clear, no respiratory distress Cardiovascular: + irregularly irregular Extremities: + pertinent finding (chronic venous stasis changes) Neurologic/Psychiatric: alert, oriented x 3 Skin: warm/dry Laboratory Results Last 24 Hours Test 06/17/16 15:24 06/17/16 17:51 06/17/16 19:56 06/17/16 20:45 White Blood Count 11.40 K/uL Red Blood Count 3.41 M/uL Hemoglobin 9.4 g/dL Hematocrit 29.9 % Mean Corpuscular Volume 87.7 fL Mean Corpuscular Hemoglobin 27.6 pg Mean Corpuscular Hemoglobin Concent 31.4 g/dl Platelet Count 204 K/uL Mean Platelet Volume 9.0 fL Neutrophils (%) (Auto) 79.6 % Lymphocytes (%) (Auto) 7.9 % Monocytes (%) (Auto) 10.8 % Eosinophils (%) (Auto) 1.4 % Basophils (%) (Auto) 0.1 % Neutrophils # (Auto) 9.08 K/uL Lymphocytes # (Auto) 0.90 K/uL Monocytes # (Auto) 1.23 K/uL Eosinophils # (Auto) 0.16 K/uL Basophils # (Auto) 0.01 K/uL RDW Standard Deviation 53.0 fL RDW Coefficient of Variation 16.4 % Immature Granulocyte % (Auto) 0.2 % Immature Granulocyte # (Auto) 0.02 K/uL Erythrocyte Sedimentation Rate 67 mm/hr Sodium Level 136 mmol/L Potassium Level 4.1 mmol/L Chloride Level 100 mmol/L Carbon Dioxide Level 27 mmol/L Anion Gap 9.0 mmol/L Blood Urea Nitrogen 27 mg/dl Creatinine 1.70 mg/dl Est Creatinine Clear Calc Drug Dose 50.2 ml/min Estimated GFR () 43.2 Estimated GFR (Non- 37.3 BUN/Creatinine Ratio 15.7 Random Glucose 244 mg/dl Calcium Level 8.9 mg/dl Magnesium Level 1.9 mg/dl Total Bilirubin 0.8 mg/dl Aspartate Amino Transf (AST/SGOT) 27 U/L Alanine Aminotransferase (ALT/SGPT) 21 U/L Alkaline Phosphatase 104 U/L Troponin I 0.017 ng/ml C-Reactive Protein 16.50 mg/dl Pro-B-Type Natriuretic Peptide 4300 pg/ml Total Protein 7.0 gm/dl Albumin 2.3 gm/dl Globulin 4.7 gm/dl Albumin/Globulin Ratio 0.5 Thyroid Stimulating Hormone (TSH) 1.580 uIu/ml Free Thyroxine 1.60 ng/dl Prothrombin Time 21.1 SECONDS Prothromb Time International Ratio 1.9 Activated Partial Thromboplast Time 41.4 SECONDS Partial Thromboplastin Ratio 1.6 Ammonia 23.0 umol/L Procalcitonin 0.20 ng/ml Urine Color YELLOW Urine Appearance TURBID Urine pH 5.0 Urine Specific Clutier 1.013 Urine Protein 1+ Urine Glucose (UA) NEG Urine Ketones NEG Urine Occult Blood 2+ Urine Nitrite NEG Urine Bilirubin NEG Urine Urobilinogen NEG Urine Leukocyte Esterase LARGE Urine WBC (Auto) >30 /hpf Urine RBC (Auto) 10-30 /hpf Urine Hyaline Casts (Auto) 1-5 /lpf Urine Epithelial Cells (Auto) >30 /lpf Urine Bacteria (Auto) 2+ Urine Yeast (Auto) PRESENT Test 06/17/16 21:14 06/18/16 00:00 06/18/16 03:00 06/18/16 06:43 Bedside Glucose 219 mg/dl 231 mg/dl Synovial Fluid Source KNEE Synovial Fluid Color YELLOW Synovial Fluid Appearance CLOUDY Synovial Fluid WBC 61062 /uL Synovial Fluid RBC 3000 /uL Synovial Fluid Polynuclear WBCs % 96.2 % Synovial Fluid Mononuclear WBCs % 3.8 % Hemoglobin 8.8 g/dL Total Creatine Kinase 367 U/L Creatine Kinase MB 6.0 ng/ml Creatine Kinase MB Ratio 1.6 Troponin I 1.450 ng/ml Test 06/18/16 06:50 06/18/16 09:55 06/18/16 10:35 06/18/16 10:45 White Blood Count 8.24 K/uL Red Blood Count 3.20 M/uL Hemoglobin 8.8 g/dL Hematocrit 27.8 % Mean Corpuscular Volume 86.9 fL Mean Corpuscular Hemoglobin 27.5 pg Mean Corpuscular Hemoglobin Concent 31.7 g/dl Platelet Count 183 K/uL Mean Platelet Volume 8.9 fL Neutrophils (%) (Auto) 75.3 % Lymphocytes (%) (Auto) 9.8 % Monocytes (%) (Auto) 11.4 % Eosinophils (%) (Auto) 3.2 % Basophils (%) (Auto) 0.1 % Neutrophils # (Auto) 6.20 K/uL Lymphocytes # (Auto) 0.81 K/uL Monocytes # (Auto) 0.94 K/uL Eosinophils # (Auto) 0.26 K/uL Basophils # (Auto) 0.01 K/uL RDW Standard Deviation 52.4 fL RDW Coefficient of Variation 16.3 % Immature Granulocyte % (Auto) 0.2 % Immature Granulocyte # (Auto) 0.02 K/uL Red Blood Cell Morphology Unremarkable Prothrombin Time 21.4 SECONDS Prothromb Time International Ratio 1.9 Sodium Level 138 mmol/L Potassium Level 3.3 mmol/L Chloride Level 102 mmol/L Carbon Dioxide Level 29 mmol/L Anion Gap 7.0 mmol/L Blood Urea Nitrogen 27 mg/dl Creatinine 1.40 mg/dl Est Creatinine Clear Calc Drug Dose 60.2 ml/min Estimated GFR () 54.6 Estimated GFR (Non- 47.1 BUN/Creatinine Ratio 19.6 Random Glucose 212 mg/dl Calcium Level 8.6 mg/dl Troponin I 2.340 ng/ml Creatine Kinase MB Ratio Absolute Reticulocyte Count 0.06 10^6/uL Percent Reticulocyte Count 1.7 % Iron Level 21 mcg/dl Transferrin 117 mg/dl Transferrin % Saturation 13 % Ferritin 486.3 ng/ml Vitamin B12 Level 411 pg/mL Folate 3.86 ng/mL Test 06/18/16 12:30 Assessment and Plan 80 y/o M from [facility] here for increased lower extremity edema and ambulatory dysfunction. Reportedly lethargic and possible altered mental status. Mildly elevated troponin without symptomatic chest pain - EKG with incomplete left bundle branch block pattern with ST-T wave abnormality. - Hx of Chronic coronary disease, history of coronary artery bypass grafting x5. - echo pending - holding heparin drip due to declining hb. - coreg dose increased to 18.75mgs. - continue asa 81mgs. - lisinopril 40mgs daily. Metabolic encephalopathy / delirium - neg CT head on admission - ?underlying etiology. sec to pain. ? SHAUNA - possible underlying dementia - blood and urine cultures pending - elevated esr, crp - nonspecific. procalcitonin normal R knee pain - ortho consulted. - aspirated right knee. - PT/OT - Morphine 2 mg every 2 hours as needed for severe pain - Percocet 1 tab every 4 hours for less severe pain Chronic atrial fibrillation - continue coumadin - rate controlled with subtherapeutic INR. Chronic heart failure with mild systolic dysfunction and reported mild decompensation on admission treated with 1 dose of intravenous Bumex with subsequent improvement of volume status. - continue home dose lasix. - I and Os Chronic Lower extremity edema - likely sec to venous stasis. - wound care consult - continue lasix 20 mg po BID CKD III-IV with acute on chronic renal insufficiency on admission. - Creatinine better today. follow Anemia - hb dropped from 11 earlier this yr. - check iron studies - fecal occult blood test Significant involuntary weight loss over the past 6 months - consider dietary consult if noted decreased appetite while here. . Obstructive sleep apnea. - follow History of pulmonary embolism/DVT-no DVT noted on ultrasound today - Continue outpatient dose of warfarin 5 mg daily - Monitor PT/INR Diabetes mellitus - glycemic consult ordered. Severe osteoarthritis - Continue lidocaine patch and Voltaren gel as needed Diarrhea - none since here. - C diff and stool culture pending DVT prophylaxis -coumadin -TEDS, SCDs CODE STATUS -LEVEL I FULL CODE
[2016-06-18] MEDS ORDERED: PHARMACY GLYCEMIC MGMT CONSULT PRN (14:09)
--- NOTE | 2016-06-18 14:30 | Pharmacy Progress Note ---
Glycemic Control Intl Consult Date of Service June 18, 2016. Scope Glycemic Pharmacist consulted by Dr Cast on 06/18/16 for glycemic control and to write orders per [facility] inpatient glycemic control protocol Objective Weight (Kilograms): 125.900 Accuchecks BSG (last 24hrs): Test 06/17/16 15:24 06/17/16 21:14 06/18/16 06:43 06/18/16 06:50 Random Glucose 244 mg/dl (70-99) 212 mg/dl (70-99) Bedside Glucose 219 mg/dl (70-99) 231 mg/dl (70-99) HbA1c Item Value Date Time Hemoglobin A1c 7.4 % H 04/07/16 0515 Recent Pertinent Medications Outpatient Anti-diabetic Regimen: * NovoLog 70/30 premixed insulin 55 units SQ BIDM * This equates to ~ 39 units basal SQ BIDM + 16 units prandial SQ BIDM The patient is currently receiving: * Basal insulin: none ordered * Correctional Insulin: Novolog Correction per scale ACHS Goal Range: Low 120 mg/dL - High 150 mg/dL Correction Factor: 25 mg/dL/unit * Prandial insulin: Per carb ratio of 1 unit per 20 grams CHO consumed Reasons for hyperglycemia: * Infection? * Diet * No basal insulin ordered Assessment & Plan ASSESSMENT: * 80yo T2DM male with adequate degree of outpatient control per recent A1c of 7.4% in 03/2016. * Outpatient regimen is premixed basal/prandial insulin of NovoLog 70/30 mix insulin. Total daily dose is 110 units/day * Pre-mixed insulin is difficult to titrate since it is already in a fixed distribution of basal:prandial insulin. Continuing pre-mixed insulin for admission typically lead to hypoglycemia d/t changing PO status but rapid acting insulin is unable to be held. * Home regimen held on admission but patient only initiated on SQ bolus insulin per CF + CR * Basal insulin is needed for admission as patient takes a total of ~78 units basal insulin per day + 32 units prandial insulin per day. * Outpatient regimen is heavily weighted with basal insulin (70% basal:30% prandial) which is most likely covering some prandial needs. * Preferred distribution of basal:prandial insulin in house is 50%:50% basal: prandial to help prevent hypoglycemia when PO intake/status changes * Will convert outpatient dosing to Lantus + NovoLog in an even distribution. Will start dosing a little below outpatient dosing as oral intake may be less inhouse as compared to outpatient d/t illness and controlled CHO diet. * Will titrate regimen daily based on BSG trends. * ADA & AACE recommend a goal blood sugar range 140-180 mg/dl for the majority of critically ill & non-critically ill patients. However, more stringent targets may be selected in individual cases. Will continue more stringent goal range of 120-150mg/dl per provider based on tight glycemic control at baseline. PLAN FOR INPATIENT GLYCEMIC CONTROL: Initiate SQ basal bolus insulin regimen based on ~ 100 units insulin/day. * Holding outpatient pre-mixed insulin. Will dose basal insulin BID in house to ease transition to back to outpatient dosing. * Start Basal insulin * Lantus 25 units SQ BID * Tighten Bolus Insulin * NovoLog per scale ACHS or Q6hrs while NPO. Add overnight checks + coverage at 0000 & 0400 to cover hyperglycemia secondary to conservative basal insulin dosing. * Goal Range: Low 120 mg/dL - High 150 mg/dL * Correction Factor: 20 mg/dL/unit * Nutritional / Prandial insulin per carb ratio of 1 unit per 6 grams CHO consumed * Please note that the plan above was derived based on current level of insulin resistance and hospital stress. These recommendations are appropriate for inpatient admission only. Plan of care upon discharge will need to be reassessed to avoid potential outpatient hypo/hyperglycemia. Thank you.
--- NOTE | 2016-06-18 16:25 | ECHOCARDIOGRAM REPORT ---
*NOTICE TO RECEIVING [employer] This information is strictly Confidential and protected under [place] law. [place] law prohibits you from making any further disclosure of this information unless further disclosure is expressly permitted by the written consent of the person to whom it pertains or is authorized by law. A general authorization for the release of medical or other information is not sufficient for this purpose. Hospital accepts no responsibility if the information is made available to any other person, INCLUDING THE PATIENT. Interpretation Summary * Name: ZAN SANCHEZ Study Date: 06/18/2016 10:11 AM BP: 121/69 mmHg * Patient Location: C.2T\S\S238\S\2 HR: 74 * : 1935 (M/d/y) Gender: Male Height: 75 in * Age: 80 yrs Ethnicity: CA Weight: 276 lb * Ordering Physician: Imtiaz Valdez * Referring Physician: Padma Weber * Performed By: John Samuels RDCS * * Reason For Study: Elevated troponin * BSA: 2.5 m2 * The study was technically limited. * The study was technically difficult. * -- Conclusions -- * Left ventricular systolic function is mildly reduced. * Ejection Fraction = 40-45%. * There is mild concentric left ventricular hypertrophy. * There are regional wall motion abnormalities as specified. * The aortic valve is mild to moderately calcified. * No hemodynamically significant valvular aortic stenosis. * There is moderate mitral regurgitation. Procedure Details * A complete two-dimensional transthoracic echocardiogram was performed (2D, M-mode, Doppler and color flow Doppler). * The study was technically difficult. * The study was technically difficult, but visualization was adequate with the administration of Definity ultrasound contrast. * There were technical limitations due to patient'sbody habitus * A contrast injection of Definity was performed to improve assessment of LV function. * Contrast was injected into an intravenous site in the left arm. * One vial of Definity ultrasound contrast was diluted in normal saline to a total volume of 10 ml. A total of '5' ml of solution was administered during imaging. * Lot # [id number] of Definity utilized for procedure. * Expiration date 1APR18. * The attending nurse who injected the contrast agent was SIMONA Chiang. Left Ventricle * The left ventricle is not well visualized. * There is no thrombus. * There is mild concentric left ventricular hypertrophy. * Left ventricular systolic function is mildly reduced. * Ejection Fraction = 40-45%. * There are regional wall motion abnormalities as specified. Right Ventricle * The right ventricle is not well visualized. * The right ventricle is grossly normal size. * The right ventricular systolic function is qualitatively normal. Atria * The left atrium is moderately dilated. * Right atrial size is normal. Mitral Valve * There is mild mitral annular calcification. * There is no mitral valve stenosis. * There is moderate mitral regurgitation. Tricuspid Valve * The tricuspid valve is not well visualized. * There is no tricuspid stenosis. * Significant tricuspid regurgitation is absent. Aortic Valve * The aortic valve is mild to moderately calcified. * The aortic valve is trileaflet. * No hemodynamically significant valvular aortic stenosis. * There is no significant aortic regurgitation. Pulmonic Valve * The pulmonary valve is not well seen, but the Doppler examination is normal without significant regurgitation or stenosis. Great Vessels * The aortic root is normal size. Pericardium/Pleural * There is no pericardial effusion. Left Ventricular Diastolic Function * Pulse wave TDI of the anterior and posterior mitral annulas demonstrates abnormal LV relaxation MMode 2D Measurements and Calculations IVSd 1.3 cm IVSs 1.7 cm LVIDd 5.7 cm LVIDs 4.6 cm LVPWd 1.3 cm LVPWs 1.4 cm IVS/LVPW 0.97 FS 19.6 % EDV(Teich) 159.8 ml ESV(Teich) 96.3 ml EF(Teich) 39.7 % EDV(cubed) 184.8 ml ESV(cubed) 96.0 ml EF(cubed) 48.0 % % IVS thick 30.0 % % LVPW thick 5.0 % LV mass(C)d 326.9 grams LV mass(C)dI 129.9 grams/m\S\2 LV mass(C)s 295.1 grams LV mass(C)sI 117.3 grams/m\S\2 SV(Teich) 63.5 ml SI(Teich) 25.2 ml/m\S\2 SV(cubed) 88.7 ml SI(cubed) 35.3 ml/m\S\2 EPSS 1.0 cm Ao root diam 3.2 cm Ao root area 8.0 cm\S\2 ACS 1.1 cm LA dimension 5.2 cm asc Aorta Diam 4.0 cm LA/Ao 1.6 LVOT diam 2.2 cm LVOT area 4.0 cm\S\2 LVAd ap4 45.3 cm\S\2 LVLd ap4 9.5 cm EDV(MOD-sp4) 177.0 ml LVAs ap4 34.7 cm\S\2 LVLs ap4 8.9 cm ESV(MOD-sp4) 111.0 ml EF(MOD-sp4) 37.3 % LVAd ap2 39.4 cm\S\2 LVLd ap2 9.2 cm EDV(MOD-sp2) 139.0 ml LVAs ap2 30.2 cm\S\2 LVLs ap2 8.0 cm ESV(MOD-sp2) 90.0 ml EF(MOD-sp2) 35.3 % SV(MOD-sp4) 66.0 ml SI(MOD-sp4) 26.2 ml/m\S\2 SV(MOD-sp2) 49.0 ml SI(MOD-sp2) 19.5 ml/m\S\2 Doppler Measurements and Calculations MV E max carrie 130.2 cm/sec MV dec time 0.19 sec Ao V2 max 178.1 cm/sec Ao max PG 12.7 mmHg Ao max PG (full) 9.6 mmHg BECKY(V,A) 2.0 cm\S\2 BECKY(V,D) 2.0 cm\S\2 LV V1 max PG 3.1 mmHg LV V1 max 88.3 cm/sec PA V2 max 124.9 cm/sec PA max PG 6.2 mmHg PI end-d carrie 135.7 cm/sec TR max carrie 280.2 cm/sec
[2016-06-18] MEDS ORDERED: INSULIN GLARGINE SOLOSTAR 100 UNITS/ML 3 ML PEN SC SCH (16:45)
[2016-06-18] MEDS: ATORVASTATIN 40 MG TAB PO SCH (20:42)
[2016-06-18] MEDS: TRAZODONE HCL 50 MG TAB PO SCH (20:43)
[2016-06-18] MEDS: MIRTAZAPINE TAB 15 MG TAB PO SCH (20:43)
[2016-06-19] VITALS (7 sets, daily range): BP systolic 117–168; BP diastolic 64–82; PULSE 72–88; TEMP 36.4–38.1; O2SAT 92–95
[2016-06-19] MEDS: OXYCODONE/ACETAMINOPHEN 5-325 TAB PO PRN ×2 (01:04→19:22)
[2016-06-19] MEDS: DICLOFENAC SOD 1% GEL 100 GM TUBE EXT SCH ×3 (06:19→21:10)
[2016-06-19 06:58] LABS: HEMATOCRIT 27.5 % (42-52); MEAN CELL VOLUME 87.6 fL (80-100); MEAN PLATELET VOLUME 9.2 fL (7.4-10.4); PLATELET COUNT 204 K/uL (130-400); RED BLOOD COUNT 3.14 M/uL (4.7-6.1); WHITE BLOOD COUNT 7.65 K/uL (4.8-10.8)
[2016-06-19] MEDS: INSULIN ASPART 100 UNITS/ML 3 ML PEN SC SCH ×4 (07:00→21:00)
[2016-06-19 07:16] LABS: INR 1.8 (0.9-1.1); PROTHROMBIN TIME (PATIENT) 19.7 SECONDS (9.0-12.0)
[2016-06-19 07:26] LABS: BUN/CREATININE RATIO 22.5 (10-20); CALCIUM 8.5 mg/dl (8.5-10.1); CREATININE 1.3 mg/dl (0.60-1.40); POTASSIUM 3.3 mmol/L (3.5-5.1)
[2016-06-19 07:41] LABS: BASO % 0.1 %; BASO ABS # 0.01 K/uL (0-0.2); COMPLETE YES; EOS % 3.7 %; IG% 0.1 %; LYMPH % 11.5 %; LYMPH ABS # 0.88 K/uL (1.2-3.4); MONO % 9.9 %; NEUT % 74.7 %
[2016-06-19] MEDS: CARVEDILOL 12.5 MG TAB PO SCH ×2 (08:11→21:06)
[2016-06-19] MEDS: LISINOPRIL 20 MG TAB PO SCH (08:12)
[2016-06-19] MEDS: LIDODERM (LIDOCAINE) PATCH 5% TD SCH (08:14)
[2016-06-19] MEDS: INSULIN GLARGINE SOLOSTAR 100 UNITS/ML 3 ML PEN SC SCH ×2 (08:18→21:09)
[2016-06-19] MEDS: ASPIRIN 81 MG CHEW PO SCH (08:19)
[2016-06-19] MEDS ORDERED: DAPTOMYCIN CONSULT ACTIVE PRN ×2 (08:30)
[2016-06-19] MEDS: PANTOprazole SOD 40 MG TAB PO SCH ×2 (08:36→21:07)
[2016-06-19] MEDS ORDERED: DAPTOmycin IV 750 MG in SODIUM CHLORIDE 0.9% 50ML 50 ML IV SCH (09:00)
--- NOTE | 2016-06-19 09:27 | PROGRESS NOTE ---
DATE: 06/19/2016 DATE: 06/19/2016. SUBJECTIVE: An 80-year-old gentleman admitted with lower extremity weakness, swelling and ambulatory dysfunction. He seems to be doing a little bit better today. He said his knee feels a little bit better since we drained it. No new complaints. OBJECTIVE: VITAL SIGNS: Temperature 36.6. Vital signs stable. Continues to have some intermittent hypertension. PHYSICAL EXAMINATION: Examination of the right leg reveals a varus alignment to his knee. He has just a trace knee effusion today and his effusion has improved. He has pain with any type of knee motion. No warmth. No redness. LABORATORY DATA: Knee aspirate revealed 10,000 white cells with 96% polys. Crystal analysis is pending. Culture results are pending. Gram stain showed many polys, no organisms. ASSESSMENT: An 80-year-old male admitted with ambulatory dysfunction and leg swelling with elevated sed rate and C-reactive protein status post a left knee replacement and right knee scope in the past with right knee pain and discomfort consistent with some DJD plus or minus some chondrocalcinosis/pseudogout. There are no clinical signs or suspicion of infection based on his exam or his knee aspirate. It does seem slightly inflammatory like there is likely some degree of pseudogout and he might benefit from injection. He also has advanced right hip arthritis which has been known. The patient is not a surgical candidate from the elective arthroplasty standpoint. Other potential sources for the elevated sed rate and C-reactive protein could be polymyalgia rheumatica, which would explain his weakness and some of his muscle discomfort versus gout/pseudogout. PLAN: From an orthopedic standpoint we will follow him along. We will wait for the crystal analysis. We will make sure there is no growth on his cultures. If these look normal in a day or 2 we may consider a knee injection. He can weightbear as tolerated from the orthopedic standpoint. There is no particular restrictions. Any questions can be directed to me at [phone].
--- NOTE | 2016-06-19 10:25 | CARDIOLOGY PROGRESS NOTE ---
DATE: 06/19/2016 DATE: 06/19/2016. SUBJECTIVE: The patient is seen and examined at the bedside. Denies chest pain or unusual shortness of breath. He is resting comfortably. Denies any disorientation or confusion. No palpitations, lightheadedness, dizziness, or abdominal discomfort. Telemetry demonstrates atrial fibrillation with controlled ventricular response. His INR has trended down to 1.8. Hemoglobin remains stable. Preliminary urine culture demonstrates greater than 100,000 colony forming units of gram positive cocci. Daptomycin has been added by the internal medicine service. REVIEW OF SYSTEMS: Pertinent positives noted above, a 4-system review including cardiovascular, pulmonary, gastroenterologic systems otherwise negative. ECG: Atrial fibrillation, 73 beats per minute, anterior lateral ST-T wave abnormality, consider ischemia. TELEMETRY: Atrial fibrillation with controlled ventricular response, no sustained tachydysrhythmia. LABORATORY DATA: White blood cell count 7.65, hemoglobin is 8.8, platelet count is 204. Sodium 139, potassium 3.3, chloride 103, CO2 28, BUN is 29, creatinine is 1.30 down from initial creatinine of 1.70 on admission. PHYSICAL EXAMINATION: VITAL SIGNS: Temperature is 36.6 degrees centigrade, pulse 74 beats per minute and regular, respiratory rate 18 breaths per minute, blood pressure 148/82. SAO2 is 94% on room air. GENERAL: NAD, chronically ill, awake and alert, hard of hearing. HEAD, EYES, EARS, NOSE, AND THROAT: Mucous membranes dry. No scleral icterus. Conjunctivae pink. NECK: Supple without JVD or HJR. No carotid bruit. HEART: Irregular with a normal S1 and S2. A 1-2/6 systolic ejection murmur is heard at the right second intercostal space, there is a 1-2/6 holosystolic murmur heard at the apex. LUNGS: Demonstrate diminished breath sounds at the bases with scant crackles. ABDOMEN: Soft, nontender. No rebound or guarding. EXTREMITIES: Warm and dry with trace bilateral pedal edema. Bilateral heel ulcers noted. NEUROLOGIC EXAMINATION: Demonstrates no focal motor deficit. FINAL IMPRESSION: 1. Complex 80-year-old patient admitted with change in mental status and subsequently found to have NSTEMI with elevated troponins and ECG abnormalities. The patient denies any anginal symptoms. 2. 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 3. 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 4. Chronic rate controlled atrial fibrillation with subtherapeutic INR. 5. Normocytic anemia with iron deficiency. No signs/symptoms of acute blood loss. 6. Chronic kidney disease stage III-IV -- creatinine trending downward. 7. Unintentional weight loss. 8. History of pulmonary embolus. 9. Gram positive cocci urinary tract infection. PLAN AND RECOMMENDATIONS: The patient's INR has trended downward and his hemoglobin has remained stable. I will initiate a heparin infusion with close monitoring of H\T\H on a daily basis. Lasix will be restarted at outpatient dosing of 80 mg in the morning and 40 mg in the evening. Potassium will be supplemented today, 40 mEq. Other cardiovascular medications including aspirin, carvedilol, lisinopril, and high dose atorvastatin will be continued as previously ordered. Recommend conservative medical treatment at this time. Will continue to follow during hospitalization.
[2016-06-19 10:29] LABS: PARTIAL THROMBOPLASTIN RATIO 1.7
[2016-06-19] MEDS: HEPARIN 25,000 UNIT/500ML D5W 500 ML IV PRN (10:29)
[2016-06-19] MEDS ORDERED: POTASSIUM CHLORIDE 20 MEQ TABCR PO ONE (10:30)
[2016-06-19] MEDS ORDERED: FUROSEMIDE 40 MG TAB PO ONE (10:30)
--- NOTE | 2016-06-19 10:32 | Pharmacy Progress Note ---
Glycemic Control: Progress Nt Date of Service June 19, 2016. Scope Glycemic Pharmacist consulted by Dr Cast on 06/18/16 for glycemic control and to write orders per [facility] inpatient glycemic control protocol. Objective Accuchecks BSG (last 24hrs): Test 06/18/16 11:16 06/18/16 16:22 06/18/16 20:25 06/19/16 06:15 Bedside Glucose 209 mg/dl (70-99) 185 mg/dl (70-99) 158 mg/dl (70-99) Random Glucose 136 mg/dl (70-99) Test 06/19/16 06:39 Bedside Glucose 148 mg/dl (70-99) HbA1c: Item Value Date Time Hemoglobin A1c 7.4 % H 04/07/16 0515 Recent Pertinent Medications Outpatient Anti-diabetic Regimen: * NovoLog 70/30 premixed insulin 55 units SQ BIDM * This equates to ~ 39 units basal SQ BIDM + 16 units prandial SQ BIDM The patient is currently receiving: * Basal insulin: Lantus 25 units SQ BID * Correctional Insulin: Novolog Correction per scale ACHS Goal Range: Low 120 mg/dL - High 150 mg/dL Correction Factor: 20 mg/dL/unit * Prandial insulin: Per carb ratio of 1 unit per 6 grams CHO consumed Reasons for hyperglycemia: * Infection/UTI * Baseline insulin resistance per high outpatient doses Assessment & Plan ASSESSMENT: Initial: * 80yo T2DM male with adequate degree of outpatient control per recent A1c of 7.4% in 03/2016. * Outpatient regimen is premixed basal/prandial insulin of NovoLog 70/30 mix insulin. Total daily dose is 110 units/day * Pre-mixed insulin is difficult to titrate since it is already in a fixed distribution of basal:prandial insulin. Continuing pre-mixed insulin for admission typically lead to hypoglycemia d/t changing PO status but rapid acting insulin is unable to be held. * Outpatient regimen is heavily weighted with basal insulin (70% basal:30% prandial) which is most likely covering some prandial needs. * Preferred distribution of basal:prandial insulin in house is 50%:50% basal: prandial to help prevent hypoglycemia when PO intake/status changes * Home regimen held on admission but patient only initiated on SQ bolus insulin per CF+CR. Pharmacy consulted on 06/18 and made the following adjustments: added basal insulin and adjusted regimen based based on conservative outpatient dosing d/t dec PO intake 06/19/16: * Pt known to pharmacy from previous admissions/glycemic consults, most recently Feb 2016. Pt required 130+ units of insulin per day this admission with similar risk factors for hyperglycemia and ironically reduced renal function. However, Pt was adequately taking PO this admission. * Yesterday, initiated SQ basal bolus insulin regimen based on estimated TDD of ~ 100 units which was slightly more conservative than outpatient dosing and previous admission d/t decreased PO intake. * AM fasting BSG in goal range this morning at 148mg/dl after receiving only 25 units of Lantus * PO intake still is poor --> pt only ate lunch yesterday * Concern that current dosing may need empirically reduced to prevent hypo d/t significant improvement in BSGs only after one dose of Lantus. * Dosing Lantus based on BSG is a safe way to rapidly titrate Lantus when true basal needs are unknown. Will change to this dosing and titrate based on BSG trends & PO intake. PLAN FOR INPATIENT GLYCEMIC CONTROL: Empirically decrease SQ basal bolus regimen based on a max dose of ~80 units insulin per day. Change Lantus to BSG range based dosing for rapid dose titrate (up or down) to help prevent hypo/ hyperglycemia since true basal needs are not known. Pt typically requires 110+ units of insulin per day per outpatient dosing and Feb 2016 admission but BSGs trending downwards rapidly this admission (decreased PO intake - only eating lunch). * Holding outpatient pre-mixed insulin. Will dose basal insulin BID in house to ease transition to back to outpatient dosing. * Change/Decrease Basal insulin * Lantus SQ BID --> dosing based on BSG range * BSG below 120mg/dl --> Administer 0 units of Lantus * BSG 120-180mg/dl --> Administer 10 units of Lantus * BSG 181mg/dl and above --> Administer 20 units of Lantus * Continue Bolus Insulin * NovoLog per scale ACHS or Q6hrs while NPO. * Goal Range: Low 120 mg/dL - High 150 mg/dL * Correction Factor: 20 mg/dL/unit * Nutritional / Prandial insulin per carb ratio of 1 unit per 7 grams CHO consumed * Please note that the plan above was derived based on current level of insulin resistance and hospital stress. These recommendations are appropriate for inpatient admission only. Plan of care upon discharge will need to be reassessed to avoid potential outpatient hypo/hyperglycemia. Thank you.
--- NOTE | 2016-06-19 12:25 | Hospitalist Progress Note ---
Hospitalist Progress Note Date of Service June 19, 2016. Subjective no concerns resting comfortably right knee pain much better per nursing - urinary incontinent Constitutional: No fever Respiratory: No shortness of breath Cardiovascular: No chest pain Objective Vital Signs Date Time Temp Pulse Resp B/P Pulse Ox O2 Delivery O2 Flow Rate FiO2 06/19/16 11:47 36.4 87 19 143/74 95 Room Air 06/19/16 08:00 Room Air 06/19/16 07:21 36.6 74 18 148/82 94 Room Air 06/19/16 04:02 Room Air 06/19/16 03:38 37.1 84 22 119/64 92 Room Air 06/19/16 00:02 Room Air 06/18/16 23:10 37.2 80 21 125/69 92 Room Air 06/18/16 20:00 Room Air 06/18/16 19:30 37.6 76 17 147/75 92 Room Air 06/18/16 16:55 37.3 89 20 134/80 96 Room Air 06/18/16 16:14 Room Air 06/18/16 12:00 95 Room Air Physical Exam General Appearance: no apparent distress Respiratory/Chest: lungs clear, no respiratory distress Cardiovascular: + irregularly irregular Abdomen: normal bowel sounds, non tender, soft Neurologic/Psychiatric: alert, + pertinent finding (oriented to place and person) Skin: warm/dry Laboratory Results Last 24 Hours Test 06/18/16 12:30 06/18/16 16:22 06/18/16 20:25 06/19/16 06:15 Total Creatine Kinase 346 U/L Creatine Kinase MB 6.4 ng/ml Creatine Kinase MB Ratio 1.8 Troponin I 2.300 ng/ml Bedside Glucose 185 mg/dl 158 mg/dl White Blood Count 7.65 K/uL Red Blood Count 3.14 M/uL Hemoglobin 8.8 g/dL Hematocrit 27.5 % Mean Corpuscular Volume 87.6 fL Mean Corpuscular Hemoglobin 28.0 pg Mean Corpuscular Hemoglobin Concent 32.0 g/dl Platelet Count 204 K/uL Mean Platelet Volume 9.2 fL Neutrophils (%) (Auto) 74.7 % Lymphocytes (%) (Auto) 11.5 % Monocytes (%) (Auto) 9.9 % Eosinophils (%) (Auto) 3.7 % Basophils (%) (Auto) 0.1 % Neutrophils # (Auto) 5.71 K/uL Lymphocytes # (Auto) 0.88 K/uL Monocytes # (Auto) 0.76 K/uL Eosinophils # (Auto) 0.28 K/uL Basophils # (Auto) 0.01 K/uL RDW Standard Deviation 53.1 fL RDW Coefficient of Variation 16.5 % Immature Granulocyte % (Auto) 0.1 % Immature Granulocyte # (Auto) 0.01 K/uL Red Blood Cell Morphology Unremarkable Prothrombin Time 19.7 SECONDS Prothromb Time International Ratio 1.8 Activated Partial Thromboplast Time 44.7 SECONDS Partial Thromboplastin Ratio 1.7 Sodium Level 139 mmol/L Potassium Level 3.3 mmol/L Chloride Level 103 mmol/L Carbon Dioxide Level 28 mmol/L Anion Gap 8.0 mmol/L Blood Urea Nitrogen 29 mg/dl Creatinine 1.30 mg/dl Est Creatinine Clear Calc Drug Dose 64.4 ml/min Estimated GFR () 59.7 Estimated GFR (Non- 51.5 BUN/Creatinine Ratio 22.5 Random Glucose 136 mg/dl Calcium Level 8.5 mg/dl Test 06/19/16 06:39 06/19/16 08:53 Bedside Glucose 148 mg/dl Troponin I 0.929 ng/ml Assessment and Plan 80 y/o M from [place] here for increased lower extremity edema and ambulatory dysfunction. Reportedly lethargic and possible altered mental status. Mildly elevated troponin without symptomatic chest pain - EKG with incomplete left bundle branch block pattern with ST-T wave abnormality. - Hx of Chronic coronary disease, history of coronary artery bypass grafting x5. - echo with no WMA - heparin drip started - coreg dose increased to 18.75mgs. - continue asa 81mgs. - lisinopril 40mgs daily. - Atorvastatin 80mgs Metabolic encephalopathy / delirium - mentation clear - neg CT head on admission - sec to UTI - blood neg - possible underlying mild dementia UTI - Gram positive cocci - Daptomycin Urine incontinence - garsia R knee pain - s/p aspiration right knee by ortho - cultures pending. - PT/OT - Morphine 2 mg every 2 hours as needed for severe pain - Percocet 1 tab every 4 hours for less severe pain Chronic atrial fibrillation - continue coumadin - rate controlled with subtherapeutic INR. Started on heparin drip - Warfarin on hold Chronic heart failure with mild systolic dysfunction and reported mild decompensation on admission treated with 1 dose of intravenous Bumex with subsequent improvement of volume status. - Home dose lasix resumed. - I and Os Chronic Lower extremity edema - likely sec to venous stasis. - wound care consult - continue lasix CKD III-IV with acute on chronic renal insufficiency on admission. - Creatinine better today. follow Anemia - hb dropped from 11 earlier this yr. - check iron studies consistent with anemia of chronic ds - low folate - replace Significant involuntary weight loss over the past 6 months - Appetite good here. . Obstructive sleep apnea. - follow History of pulmonary embolism/DVT-no DVT noted on ultrasound today - Warfarin on hold. On heparin drip. Diabetes mellitus - glycemic consult ordered. Severe osteoarthritis - Continue lidocaine patch and Voltaren gel as needed Diarrhea - none since here. DVT prophylaxis -coumadin -TEDS, SCDs CODE STATUS -LEVEL I FULL CODE
[2016-06-19 17:15] LABS: PARTIAL THROMBOPLASTIN RATIO 3.4
[2016-06-19] MEDS: FUROSEMIDE 40 MG TAB PO SCH (17:16)
[2016-06-19] MEDS: ACETAMINOPHEN 325 MG TAB PO PRN (19:23)
[2016-06-19] MEDS: MIRTAZAPINE TAB 15 MG TAB PO SCH (21:06)
[2016-06-19] MEDS: TRAZODONE HCL 50 MG TAB PO SCH (21:06)
[2016-06-19] MEDS: ATORVASTATIN 40 MG TAB PO SCH (21:06)
[2016-06-20] VITALS (7 sets, daily range): BP systolic 97–160; BP diastolic 59–78; PULSE 73–94; TEMP 36.5–38.2; O2SAT 93–95; Ht 190.5 cm; Wt 122.5 kg
[2016-06-20 01:00] LABS: PARTIAL THROMBOPLASTIN RATIO 2.7
[2016-06-20] MEDS: HEPARIN 25,000 UNIT/500ML D5W 500 ML IV PRN ×2 (01:34→20:32)
[2016-06-20] MEDS: DICLOFENAC SOD 1% GEL 100 GM TUBE EXT SCH ×3 (05:34→20:33)
[2016-06-20] MEDS: INSULIN ASPART 100 UNITS/ML 3 ML PEN SC SCH ×4 (07:00→20:33)
[2016-06-20 07:40] LABS: HEMATOCRIT 29.2 % (42-52); MEAN CORPUSCULAR HEMOGLOBIN 28.3 pg (25-34); MEAN CORPUSCULAR HGB CONC 32.2 g/dl (32-36); MEAN PLATELET VOLUME 8.8 fL (7.4-10.4); PLATELET COUNT 194 K/uL (130-400); RED BLOOD COUNT 3.32 M/uL (4.7-6.1); WHITE BLOOD COUNT 7.58 K/uL (4.8-10.8)
[2016-06-20] MEDS: LISINOPRIL 20 MG TAB PO SCH (07:43)
[2016-06-20] MEDS: FUROSEMIDE 40 MG TAB PO SCH ×2 (07:44→16:42)
[2016-06-20] MEDS: PANTOprazole SOD 40 MG TAB PO SCH ×2 (07:45→20:35)
[2016-06-20] MEDS: CARVEDILOL 12.5 MG TAB PO SCH ×2 (07:46→20:34)
[2016-06-20] MEDS: AMPICILLIN IV 1 GM in SODIUM CHLOR 0.9% AD-VAN 50ML 50 ML IV SCH ×3 (07:47→19:44)
[2016-06-20] MEDS: INSULIN GLARGINE SOLOSTAR 100 UNITS/ML 3 ML PEN SC SCH ×2 (07:50→20:39)
[2016-06-20 07:59] LABS: INR 1.8 (0.9-1.1); PARTIAL THROMBOPLASTIN RATIO 3.7; PROTHROMBIN TIME (PATIENT) 19.9 SECONDS (9.0-12.0)
--- NOTE | 2016-06-20 08:23 | Clinical Documentation Query ---
Dr. GONZALEZ [facility] : CLINICAL DOCUMENTATION QUERIES QUERY 1 OF 2 Patient is an 80 year old male admitted from [facility] with increased lower extremity edema and ambulatory dysfunction. Troponin elevated to 2.300 ng/ml. EKG's recurrently demonstrated ST &T wave abnormalities possibly consistent with anterolateral ischemia. Heparin infusion was initiated, Coreg dose was increased. Also on ASA, Lisinopril, and Atorvastatin. He is being monitored on telemetry and was seen in consultation by cardiology who has documented NSTEMI. As appropriate, please clarify POA status as below as this impacts DRG assignment. Thank you. In your clinical opinion is this patient being managed for: ( ) Type II NSTEMI, POA ( ) Type II NSTEMI, not POA ( ) Other explanation of clinical findings (Please Explain) ( ) Unable to determine (Please Define) ( ) Need to Discuss ( ) Not Agree The medical record reflects the following clinical findings, treatment, and risk factors. Clinical Indicators: As above Treatment: Heparin infusion was initiated, Coreg dose was increased. Also on ASA, Lisinopril, and Atorvastatin. He is being monitored on telemetry and was seen in consultation by cardiology who has documented NSTEMI. Serial EKG's. ECHO. Risk Factors: Age, CAD, gender, hypertension, hyperlipidemia, DM QUERY 2 OF 2 Documentation includes "CKD III-IV with acute on chronic renal insufficiency on admission." Acute renal insufficiency does not equate with acute renal failure or acute kidney injury in ICD-10 CMS coding language. If this was the intent of this diagnostic statement, consider documentation as suggested below. Thank you. In your clinical opinion is this patient being managed for: ( ) Acute kidney failure, POA, resolved, on CKD III-IV ( ) Other explanation of clinical findings (Please Explain) ( ) Unable to determine (Please Define) ( ) Need to Discuss ( ) Not Agree The medical record reflects the following clinical findings, treatment, and risk factors. Clinical Indicators: As above Treatment: Serial chemistries Risk Factors: Age, hypertension, DM Please clarify and document your clinical opinion in the progress notes and discharge summary. Terms such as "probable", "suspected", "likely", "questionable", "possible", or "still to be ruled out" are acceptable. IF IN AGREEMENT, YOU MUST DOCUMENT ABOVE DIAGNOSTIC STATEMENT IN DAILY PROGRESS NOTES AND DISCHARGE SUMMARY. This document is not part of the patient's record. Thank You, Yunior Khan, RN [phone]
[2016-06-20 08:35] LABS: BASO % 0.4 %; BASO ABS # 0.03 K/uL (0-0.2); COMPLETE YES; EOS % 5.3 %; IG% 0.1 %; LYMPH % 12.7 %; LYMPH ABS # 0.96 K/uL (1.2-3.4); MONO % 8.8 %; NEUT % 72.7 %
[2016-06-20 09:05] LABS: BUN/CREATININE RATIO 19.3 (10-20); CALCIUM 8.6 mg/dl (8.5-10.1); CREATININE 1.3 mg/dl (0.60-1.40); POTASSIUM 3.7 mmol/L (3.5-5.1)
[2016-06-20] MEDS: ASPIRIN 81 MG CHEW PO SCH (09:22)
[2016-06-20] MEDS: LIDODERM (LIDOCAINE) PATCH 5% TD SCH (09:23)
--- NOTE | 2016-06-20 10:07 | Pharmacy Progress Note ---
Glycemic Control: Progress Nt Date of Service June 20, 2016. Scope Glycemic Pharmacist consulted by Dr. Cast on 06/18/16 for glycemic control and to write orders per [facility] inpatient glycemic control protocol. Objective Accuchecks BSG (last 24hrs): Test 06/19/16 11:12 06/19/16 16:22 06/19/16 20:16 06/20/16 06:28 Bedside Glucose 148 mg/dl (70-99) 130 mg/dl (70-99) 125 mg/dl (70-99) 126 mg/dl (70-99) Test 06/20/16 07:19 Random Glucose 114 mg/dl (70-99) Laboratory Data (last 24hrs) Test 06/20/16 07:19 Anion Gap 7.0 mmol/L BUN/Creatinine Ratio 19.3 Blood Urea Nitrogen 25 mg/dl Creatinine 1.30 mg/dl Potassium Level 3.7 mmol/L Sodium Level 142 mmol/L White Blood Count 7.58 K/uL Red Blood Count 3.32 M/uL Hemoglobin 9.4 g/dL Hematocrit 29.2 % Mean Corpuscular Volume 88.0 fL Mean Corpuscular Hemoglobin 28.3 pg Mean Corpuscular Hemoglobin Concent 32.2 g/dl Platelet Count 194 K/uL Mean Platelet Volume 8.8 fL Neutrophils (%) (Auto) 72.7 % Lymphocytes (%) (Auto) 12.7 % Monocytes (%) (Auto) 8.8 % Eosinophils (%) (Auto) 5.3 % Basophils (%) (Auto) 0.4 % Neutrophils # (Auto) 5.51 K/uL Lymphocytes # (Auto) 0.96 K/uL Monocytes # (Auto) 0.67 K/uL Eosinophils # (Auto) 0.40 K/uL Basophils # (Auto) 0.03 K/uL Recent Pertinent Medications Outpatient Anti-diabetic Regimen: * Novolog 70/30: 55 units BIDM * A1c = 7.4 % from 04/07/16 Risk Factors for Insulin Resistance: * Infection: E. faecalis UTI - On Ampicillin IV * IVF: Hep gtt contributing to dextrose source * Diet:AHA/DM2/Lo NA Assessment & Plan ASSESSMENT: * ADA & AACE recommend a goal blood sugar range 140-180 mg/dl for the majority of critically ill & non-critically ill patients. However, more stringent targets may be selected in individual cases. Initial: * 80yo T2DM male with adequate degree of outpatient control per recent A1c of 7.4% in 03/2016. * Outpatient regimen is premixed basal/prandial insulin of NovoLog 70/30 mix insulin. Total daily dose is 110 units/day * Pre-mixed insulin is difficult to titrate since it is already in a fixed distribution of basal:prandial insulin. Continuing pre-mixed insulin for admission typically lead to hypoglycemia d/t changing PO status but rapid acting insulin is unable to be held. * Outpatient regimen is heavily weighted with basal insulin (70% basal:30% prandial) which is most likely covering some prandial needs. * Preferred distribution of basal:prandial insulin in house is 50%:50% basal: prandial to help prevent hypoglycemia when PO intake/status changes * Home regimen held on admission but patient only initiated on SQ bolus insulin per CF+CR. Pharmacy consulted on 06/18 and made the following adjustments: added basal insulin and adjusted regimen based based on conservative outpatient dosing d/t dec PO intake 06/19/16: * Pt known to pharmacy from previous admissions/glycemic consults, most recently Feb 2016. Pt required 130+ units of insulin per day this admission with similar risk factors for hyperglycemia and ironically reduced renal function. However, Pt was adequately taking PO this admission. * Yesterday, initiated SQ basal bolus insulin regimen based on estimated TDD of ~ 100 units which was slightly more conservative than outpatient dosing and previous admission d/t decreased PO intake. * AM fasting BSG in goal range this morning at 148mg/dl after receiving only 25 units of Lantus * PO intake still is poor --> pt only ate lunch yesterday * Concern that current dosing may need empirically reduced to prevent hypo d/t significant improvement in BSGs only after one dose of Lantus. * Dosing Lantus based on BSG is a safe way to rapidly titrate Lantus when true basal needs are unknown. Will change to this dosing and titrate based on BSG trends & PO intake. 06/20/16: * BSGs remain well-controlled on current regimen. * DM regimen appearing basal heavy as a result of minimal po intake; Requiring 38 units of insulin per day - 70-80% of which is basal insulin presently. * Insulin needs may increase as po intake improves. Pt's insulin requirements were > 100 units/day during past admission when po intake at b/l. * Will continue to monitor therapy and adjust insulin as deemed necessary. No changes warranted at this time. PLAN FOR INPATIENT GLYCEMIC CONTROL: * Continue Lantus BID per BSG scale * 0 units: BSG below 120 mg/dl * 10 units: BSG 120-180 mg/dl * 20 units: BSG above 180 mg/dl * Novolog ACHS * Continue correction factor 20 mg/dl/unit * Continue carb ratio 1 unit per 6 grams CHO consumed * Continue goal range Low 120 mg/dL - High 150 mg/dL LOOKING AHEAD TO DISCHARGE: * Recommend pt resume outpatient DM regimen upon discharge. * Please note that the plan above was derived based on current level of insulin resistance and hospital stress. These recommendations are appropriate for inpatient admission only. Plan of care upon discharge will need to be reassessed to avoid potential outpatient hypo/hyperglycemia. Thank you.
--- NOTE | 2016-06-20 11:40 | Cardiology Follow-Up ---
Subjective General Date of Service: June 20, 2016. Pt evaluation today including: conversation w/ patient, physical exam, chart review, lab review, review of studies, conversation w/ fashion consultant sales, review of inpatient medication list History of Present Illness The patient is a 80 year old male seen in follow up. Denies chest discomfort or shortness of breath. No orthopnea or PND. Lower extremity edema more prominent today. Outpatient Lasix resumed yesterday. IV heparin infusing. Hemoglobin remained stable. Mental status at baseline. Patient offers no complaints this time. Allergies Coded Allergies: NO KNOWN DRUG ALLERGIES (Verified Allergy, Unknown, ., 06/17/16) Social History Smoking Status: Never Smoker Hx Tobacco Use In Past Year?: No Hx Alcohol Use - Type And Amou: No Hx Substance Use - Type And Am: No Problem List Medical Problems: (1) Acute electrocardiogram changes Status: Acute (2) Anemia Status: Acute (3) CHF (congestive heart failure) Status: Acute (4) Dysphagia Status: Acute (5) Edema Status: Acute (6) Hypoglycemia Status: Acute (7) Insulin dependent diabetes mellitus Status: Acute (8) Jaw pain Status: Acute Review of Systems Respiratory: No cough, No dyspnea at rest, No shortness of breath, No sputum, No wheezing Cardiac: + edema, No chest pain, No claudication, No orthopnea, No palpitations Physical Exam Vital Signs Last Vital Signs Documentation Date Time Temp Pulse Resp B/P Pulse Ox O2 Delivery O2 Flow Rate FiO2 06/20/16 08:00 Room Air 06/20/16 07:28 36.5 94 19 149/71 93 06/18/16 05:02 0.0 Physical Exam Constitutional: General Apperance: overweight Level of Distress: chronically ill Lungs: Auscultation: no wheezing, no rales/crackles, no rhonchi Cardiovascular: Heart Auscultation: normal S1, normal S2, I/ WSM, irregular rate rhythm Peripheral Pulses: Bruits: none appreciated Abdomen: Bowel Sounds: normal Inspection & Palpation: soft, non-distended, no tenderness, guarding & rebound, no masses Extremities: no cyanosis, no clubbing, no ulcers, edema Neurologic: Cranial Nerves: grossly intact Assessment and Plan Assessment and Plan FINAL IMPRESSION: 1. Complex 80-year-old patient admitted with change in mental status and subsequently found to have elevated troponins and ECG abnormalities. - No anginal symptoms at rest. 2. 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 - outpatient lasix restarted 3. 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 4. Chronic rate controlled atrial fibrillation with subtherapeutic INR. - coumadin on hold since admission 5. Normocytic anemia - likely related to chronic disease - hgb stable 6. Chronic kidney disease stage III-IV - creatinine stable today 7. Unintentional weight loss. 8. History of pulmonary embolus. 9. Enterococcus urinary tract infection. PLAN AND RECOMMENDATIONS: Continue intravenous heparin. Restart Coumadin today with repeat PT/INR in the a.m. Discontinue IV heparin when INR > 2.0 Continue other cardiovascular medications including aspirin, carvedilol, lisinopril, and high dose atorvastatin. Antibiotics per IM. Laboratory Results Last 24 Hours Test 06/19/16 16:22 06/19/16 16:42 06/19/16 20:16 06/20/16 00:30 Bedside Glucose 130 mg/dl 125 mg/dl Activated Partial Thromboplast Time 87.7 SECONDS 70.2 SECONDS Partial Thromboplastin Ratio 3.4 2.7 Test 06/20/16 06:28 06/20/16 07:19 Bedside Glucose 126 mg/dl White Blood Count 7.58 K/uL Red Blood Count 3.32 M/uL Hemoglobin 9.4 g/dL Hematocrit 29.2 % Mean Corpuscular Volume 88.0 fL Mean Corpuscular Hemoglobin 28.3 pg Mean Corpuscular Hemoglobin Concent 32.2 g/dl Platelet Count 194 K/uL Mean Platelet Volume 8.8 fL Neutrophils (%) (Auto) 72.7 % Lymphocytes (%) (Auto) 12.7 % Monocytes (%) (Auto) 8.8 % Eosinophils (%) (Auto) 5.3 % Basophils (%) (Auto) 0.4 % Neutrophils # (Auto) 5.51 K/uL Lymphocytes # (Auto) 0.96 K/uL Monocytes # (Auto) 0.67 K/uL Eosinophils # (Auto) 0.40 K/uL Basophils # (Auto) 0.03 K/uL RDW Standard Deviation 53.9 fL RDW Coefficient of Variation 16.6 % Immature Granulocyte % (Auto) 0.1 % Immature Granulocyte # (Auto) 0.01 K/uL Prothrombin Time 19.9 SECONDS Prothromb Time International Ratio 1.8 Activated Partial Thromboplast Time 96.6 SECONDS Partial Thromboplastin Ratio 3.7 Sodium Level 142 mmol/L Potassium Level 3.7 mmol/L Chloride Level 104 mmol/L Carbon Dioxide Level 31 mmol/L Anion Gap 7.0 mmol/L Blood Urea Nitrogen 25 mg/dl Creatinine 1.30 mg/dl Est Creatinine Clear Calc Drug Dose 63.8 ml/min Estimated GFR () 59.7 Estimated GFR (Non- 51.5 BUN/Creatinine Ratio 19.3 Random Glucose 114 mg/dl Calcium Level 8.6 mg/dl Troponin I 0.550 ng/ml
--- NOTE | 2016-06-20 13:01 | Clinical Documentation Query ---
MICHELLE Medrano : CLINICAL DOCUMENTATION QUERIES QUERY 1 OF 2 Patient is an 80 year old male admitted from [facility] [place] [place] with increased lower extremity edema and ambulatory dysfunction. Troponin elevated to 2.300 ng/ml. EKG's recurrently demonstrated ST &T wave abnormalities possibly consistent with anterolateral ischemia. Heparin infusion was initiated, Coreg dose was increased. Also on ASA, Lisinopril, and Atorvastatin. He is being monitored on telemetry and was seen in consultation by cardiology who has documented NSTEMI. As appropriate, please clarify POA status as below as this impacts DRG assignment. Thank you. In your clinical opinion is this patient being managed for: ( x ) Type II NSTEMI, POA ( ) Type II NSTEMI, not POA ( ) Other explanation of clinical findings (Please Explain) ( ) Unable to determine (Please Define) ( ) Need to Discuss ( ) Not Agree The medical record reflects the following clinical findings, treatment, and risk factors. Clinical Indicators: As above Treatment: Heparin infusion was initiated, Coreg dose was increased. Also on ASA, Lisinopril, and Atorvastatin. He is being monitored on telemetry and was seen in consultation by cardiology who has documented NSTEMI. Serial EKG's. ECHO. Risk Factors: Age, CAD, gender, hypertension, hyperlipidemia, DM QUERY 2 OF 2 Documentation includes "CKD III-IV with acute on chronic renal insufficiency on admission." Acute renal insufficiency does not equate with acute renal failure or acute kidney injury in ICD-10 CMS coding language. If this was the intent of this diagnostic statement, consider documentation as suggested below. Thank you. In your clinical opinion is this patient being managed for: ( x ) Acute kidney failure, POA, resolved, on CKD III-IV ( ) Other explanation of clinical findings (Please Explain) ( ) Unable to determine (Please Define) ( ) Need to Discuss ( ) Not Agree The medical record reflects the following clinical findings, treatment, and risk factors. Clinical Indicators: As above Treatment: Serial chemistries Risk Factors: Age, hypertension, DM Please clarify and document your clinical opinion in the progress notes and discharge summary. Terms such as "probable", "suspected", "likely", "questionable", "possible", or "still to be ruled out" are acceptable. IF IN AGREEMENT, YOU MUST DOCUMENT ABOVE DIAGNOSTIC STATEMENT IN DAILY PROGRESS NOTES AND DISCHARGE SUMMARY. This document is not part of the patient's record. Thank You, Yunior Khan, RN [phone]
[2016-06-20 14:55] LABS: PARTIAL THROMBOPLASTIN RATIO 1.9
[2016-06-20] MEDS: OXYCODONE/ACETAMINOPHEN 5-325 TAB PO PRN ×2 (15:41→19:45)
--- NOTE | 2016-06-20 18:04 | PROGRESS NOTE ---
DATE: 06/20/2016 I reviewed Mr. Macedo's laboratory studies from his knee aspirate. The crystal analysis revealed strongly birefringent needle-shaped crystals consistent with gout. This is all consistent with the appearance of his knee aspirate as well as his knee pain and symptoms. In light of this and the fact that his cultures have been no growth, we will likely offer him an injection into the knee. We will attempt to provide this tomorrow. I will order the medicine up and inject his knee for symptomatic relief. I do not think there are any signs of infection. He also has significant hip arthritis which we will have to manage conservatively as well. Any questions can be directed to me at [phone]. [facility]
[2016-06-20] MEDS ORDERED: WARFARIN SOD 10 MG TAB PO ONE (18:10)
--- NOTE | 2016-06-20 18:32 | Family Medicine Progress Note ---
Progress Note Date of Service June 20, 2016. Subjective Pt evaluation today including: conversation w/ patient, physical exam, chart review, lab review Pain: denies pain Voiding: garsia catheter in place 80-year-old male with a past medical history of atrial fibrillation, hypertension, DVT/PE, diabetes, coronary artery disease with CABG , hyperlipidemia currently a resident at [facility] presented to ER with complaints of abdominal dysfunction increased lower extremity swelling and altered mental status Alert and awake today. Denied any chest pain, shortness of breath, nausea, vomiting, abdominal pain. Denied any paroxysmal nocturnal dyspnea, orthopnea but had increased lower extremity swelling Constitutional: No chills, No fever Eyes: No worsening of vision ENT: No hearing loss Respiratory: No cough, No sputum Cardiovascular: No chest pain Breast: No breast lump Abdomen: No diarrhea, No nausea, No pain, No vomiting Neurologic: No memory loss Psychiatric: No depression symptoms Heme: No abnormal bleeding/bruising Medications Current Inpatient Medications Medications (Trade) Dose Ordered Sig/Aileen Route Start Time Stop Time Status Last Admin Dose Admin Acetaminophen (Tylenol Tab) 650 mg Q4H PRN PO 06/17/16 18:30 07/17/16 18:29 06/19/16 19:23 650 MG Al Hydrox/Mg Hydrox/Simethicone (Maalox Max Susp) 15 ml Q4H PRN PO 06/17/16 18:30 07/17/16 18:29 Ondansetron HCl (Zofran Inj) 4 mg Q6H PRN IV 06/17/16 18:30 07/17/16 18:29 Insulin Aspart (novoLOG ASPART) SLIDING SCALE G... ACHS SC 06/17/16 21:00 07/17/16 20:59 06/20/16 17:05 13 UNITS Aspirin (Aspirin Chew) 81 mg QAM PO 06/18/16 08:00 07/18/16 08:59 06/20/16 09:22 81 MG Atorvastatin Calcium (Lipitor Tab) 80 mg QPM PO 06/17/16 21:00 07/17/16 20:59 06/19/16 21:06 80 MG Lidocaine (Lidoderm Patch 5%) 1 patch DAILY@0900 TD 06/18/16 09:00 07/18/16 08:59 06/20/16 09:23 1 PATCH Mirtazapine (Remeron Tab) 15 mg HS PO 06/17/16 21:00 07/17/16 20:59 06/19/16 21:06 15 MG Trazodone HCl (Desyrel Tab) 50 mg HS PO 06/17/16 21:00 07/17/16 20:59 06/19/16 21:06 50 MG Pantoprazole Sodium (Protonix Tab) 40 mg BID PO 06/17/16 20:00 07/17/16 20:59 06/20/16 07:45 40 MG Miscellaneous (Remove Lidoderm Patch) 1 ea DAILY@21 N/A 06/17/16 21:00 07/17/16 20:59 06/19/16 21:07 1 EA Morphine Sulfate (MoRPHine SULFATE INJ) 2 mg Q4 PRN IV 06/17/16 18:30 07/01/16 18:29 Oxycodone/ Acetaminophen (Percocet 5-325mg Tab) 1 tab Q4H PRN PO 06/17/16 18:30 07/01/16 18:29 06/20/16 15:41 1 TAB Diclofenac Sodium (Voltaren 1% Top Gel) 1 appln Q8 EXT 06/17/16 18:30 07/17/16 18:29 06/20/16 09:20 1 APPLN Glucose (Glucose 40% Gel) 15-30 GRAMS 15 GRAMS... UD PRN PO 06/17/16 19:00 07/17/16 18:59 Glucose (Glucose Chew Tab) 4-8 Tablets 4 Tabl... UD PRN PO 06/17/16 19:00 07/17/16 18:59 Dextrose (Dextrose 50% 50ML Syringe) 25-50ML OF 50% DW IV FOR... UD PRN IV 06/17/16 19:00 07/17/16 18:59 Glucagon (Glucagon Inj) 1 mg UD PRN SQ 06/17/16 19:00 07/17/16 18:59 Miconazole Nitrate (Desenex Powder) 1 appln PRN PRN EXT 06/18/16 03:30 07/18/16 03:29 Carvedilol (Coreg Tab) 18.75 mg BID PO 06/18/16 08:00 07/18/16 07:59 06/20/16 07:46 18.75 MG Lisinopril (Zestril Tab) 20 mg QAM PO 06/18/16 08:00 07/18/16 07:59 06/20/16 07:43 20 MG Miscellaneous Information (Consult Glycemic Management Pharmacy) 1 ea UD PRN N/A 06/18/16 14:09 07/18/16 14:08 Insulin Glargine (Lantus Solostar Pen) SEE PROTOCOL TEXT BID SC 06/19/16 09:00 07/19/16 08:59 06/20/16 07:50 10 UNIT Folic Acid (Folvite Tab) 1 mg QAM PO 06/19/16 09:00 07/19/16 08:59 06/20/16 07:45 1 MG Furosemide (Lasix Tab) 80 mg QAM PO 06/20/16 09:00 07/20/16 08:59 06/20/16 07:44 80 MG Furosemide 40 mg 40 mg DAILY@1700 PO 06/19/16 17:00 07/19/16 16:59 06/20/16 16:42 40 MG Heparin Sodium/ Dextrose 500 ml @ 26 mls/hr [id number] PRN IV 06/19/16 10:15 07/19/16 10:14 06/20/16 01:34 30 MLS/HR Ampicillin Sodium/ Sodium Chloride (Ampicillin Iv/ Nss Ad-Van 50ml) 50 ml @ 100 mls/hr Q6@02,08,14,20 IV 06/20/16 08:00 06/29/16 07:59 06/20/16 13:59 100 MLS/HR Potassium Chloride (Klor-Con Tab) 40 meq QAM PO 06/21/16 09:00 07/21/16 08:59 Allopurinol (Zyloprim Tab) 300 mg QAM PO 06/21/16 09:00 07/21/16 08:59 UNV Warfarin Sodium (Coumadin Tab) 10 mg DAILY@16 PO 06/21/16 16:00 07/21/16 15:59 UNV Warfarin Sodium (Coumadin Tab) 10 mg 1810 ONCE PO 06/20/16 18:10 06/20/16 18:11 UNV Objective Vital Signs Date Time Temp Pulse Resp B/P Pulse Ox O2 Delivery O2 Flow Rate FiO2 06/20/16 15:49 37.5 81 18 160/78 95 Room Air 06/20/16 15:18 Room Air 06/20/16 11:46 36.7 73 19 127/77 95 Room Air 06/20/16 11:39 Room Air 06/20/16 08:00 Room Air 06/20/16 07:28 36.5 94 19 149/71 93 Room Air 06/20/16 04:07 36.8 76 20 121/73 95 Room Air 06/20/16 04:02 Room Air 06/20/16 00:00 Room Air 06/19/16 23:51 37.0 72 20 117/70 95 Room Air 06/19/16 20:23 38.1 88 18 121/65 93 Room Air 06/19/16 20:18 37.1 06/19/16 20:02 Room Air Physical Exam General Appearance: WD/WN, no apparent distress Eyes: normal inspection ENT: normal ENT inspection, hearing grossly normal Neck: supple Respiratory/Chest: chest non-tender, lungs clear, normal breath sounds, no respiratory distress, no accessory muscle use Cardiovascular: + irregularly irregular Abdomen: normal bowel sounds, non tender Extremities: normal range of motion, + pedal edema Neurologic/Psychiatric: alert, normal mood/affect, oriented x 3 Skin: normal color Laboratory Results 06/20/16 07:19 Red Blood Count 3.32, Mean Corpuscular Volume 88.0, Mean Corpuscular Hemoglobin 28.3, Mean Corpuscular Hemoglobin Concent 32.2, Mean Platelet Volume 8.8, Neutrophils (%) (Auto) 72.7, Lymphocytes (%) (Auto) 12.7, Monocytes (%) (Auto) 8.8, Eosinophils (%) (Auto) 5.3, Basophils (%) (Auto) 0.4, Neutrophils # (Auto) 5.51, Lymphocytes # (Auto) 0.96, Monocytes # (Auto) 0.67, Eosinophils # (Auto) 0.40, Basophils # (Auto) 0.03 06/20/16 07:19 Test 06/20/16 06:28 06/20/16 07:19 06/20/16 14:34 Bedside Glucose 126 mg/dl (70-99) White Blood Count 7.58 K/uL (4.8-10.8) Red Blood Count 3.32 M/uL (4.7-6.1) Hemoglobin 9.4 g/dL (14.0-18.0) Hematocrit 29.2 % (42-52) Mean Corpuscular Volume 88.0 fL (80-100) Mean Corpuscular Hemoglobin 28.3 pg (25-34) Mean Corpuscular Hemoglobin Concent 32.2 g/dl (32-36) Platelet Count 194 K/uL (130-400) Mean Platelet Volume 8.8 fL (7.4-10.4) Neutrophils (%) (Auto) 72.7 % Lymphocytes (%) (Auto) 12.7 % Monocytes (%) (Auto) 8.8 % Eosinophils (%) (Auto) 5.3 % Basophils (%) (Auto) 0.4 % Neutrophils # (Auto) 5.51 K/uL (1.4-6.5) Lymphocytes # (Auto) 0.96 K/uL (1.2-3.4) Monocytes # (Auto) 0.67 K/uL (0.11-0.59) Eosinophils # (Auto) 0.40 K/uL (0-0.5) Basophils # (Auto) 0.03 K/uL (0-0.2) RDW Standard Deviation 53.9 fL (36.4-46.3) RDW Coefficient of Variation 16.6 % (11.5-14.5) Immature Granulocyte % (Auto) 0.1 % Immature Granulocyte # (Auto) 0.01 K/uL (0.00-0.02) Prothrombin Time 19.9 SECONDS (9.0-12.0) Prothromb Time International Ratio 1.8 (0.9-1.1) Anion Gap 7.0 mmol/L (3-11) Est Creatinine Clear Calc Drug Dose 63.8 ml/min Estimated GFR () 59.7 Estimated GFR (Non- 51.5 BUN/Creatinine Ratio 19.3 (10-20) Calcium Level 8.6 mg/dl (8.5-10.1) Troponin I 0.550 ng/ml (0-0.045) Activated Partial Thromboplast Time 49.0 SECONDS (21.0-31.0) Partial Thromboplastin Ratio 1.9 Assessment and Plan 80-year-old male with a past medical history of atrial fibrillation, hypertension, DVT/PE, diabetes, coronary artery disease with CABG , hyperlipidemia currently a resident at [facility] presented to ER with complaints of abdominal dysfunction increased lower extremity swelling and altered mental status Mildly elevated troponin /CAD s/p CABG: - Troponin 0.017-->1.4-->2.3-->2.3-->0.9-->0.55 - EKG with incomplete left bundle branch block pattern with ST-T wave abnormality. - Echo: * Left ventricular systolic function is mildly reduced. * Ejection Fraction = 40-45%. * There is mild concentric left ventricular hypertrophy. * There are regional wall motion abnormalities as specified. * The aortic valve is mild to moderately calcified. * No hemodynamically significant valvular aortic stenosis. * There is moderate mitral regurgitation. -Continue heparin drip - Continue aspirin, Coreg 18.75 mg, lisinopril, atorvastatin Metabolic encephalopathy / delirium- likely secondary to UTI, now resolved - Head CT on admission negative UTI: - UA positive for large leuk esterase, 3+ bacteria - Urine culture positive for enterococcus - Currently on ampicillin Right knee pain: Status post aspiration likely secondary to gout - Underlying severe Osteoarthritis - Appreciate orthopedic recommendations - Allopurinol - Morphine 2 mg every 2 hours as needed for severe pain - Percocet 1 tab every 4 hours for less severe pain Chronic atrial fibrillation: -rate control with Coreg - Restart Coumadin with heparin bridge Chronic heart failure with mild systolic dysfunction : - Echo as above -Continue Lasix - I and Os Chronic Lower extremity edema secondary to venous stasis - wound care consult - continue lasix Acute on chronic kidney disease stage 3-4: - Creatinine at 1.3 - Monitor creatinine History of PE/DVT: - Venous Doppler: Negative - Restart Coumadin with heparin bridge Type 2 diabetes: - Sliding-scale insulin - Glycemic consults Obstructive sleep apnea. - follow History of pulmonary embolism/DVT-no DVT noted on ultrasound today - Warfarin on hold. On heparin drip. Diabetes mellitus - glycemic consult ordered. Involuntary weight loss: Monitor DVT prophylaxis Heparin and Coumadin Full code Disposition : Monitor in telemetry Resident Tracking Resident Involvement: Resident Care Provided Care Provided: Adult Hospital Medicine Reviewed: Pt Seen/Exam by Me History Resident Physician Supervision Note: I interviewed and examined the patient. Discussed with Dr. Pruett and agree with findings and plan as documented in the note. Any exceptions or clarifications are listed here: Pt says he hasn't felt this good in a very long time as far as his knee goes. Still very painful but is able to move it and do exercises with PT today. Has been bed bound at [facility] for months. Discussed gouty crystals seen in fluid. He says he has bilateral hip, knee, ankle pain and wonders if all from gout Tele and vitals reviewed Obese, NAD irreg irreg,1/6 COLBY RUSB decreased BS throughout but no wcr Abd +BS soft NT with mild distension Ext left leg anterior tibia with ecchymosis and small 2 cm clear fluid filled blister, right knee with mild effusion, no erythema or heat, AROM 0-90 but with passive ROM screamed out with pain past 90 degrees, trace pitting edema legs bilat -Gout- d/w Ortho about steroid injection in knee as he mentioned in his note, consider prednisone burst given CKD (no NSAIDs or colchicine) -start allopurinol and watch for flare of gout -continue PT -Disagree with above, he does not have Abdominal dysfunction, he had ambulatory dysfunction Demand ischemia with peak trop 2.3--> trended downward, on heparin gtt for bridging back to therapeutic INR for PAF and h/o DVT/PE Documented By: Dayana Levi
[2016-06-20] MEDS: ACETAMINOPHEN 325 MG TAB PO PRN (19:45)
[2016-06-20] MEDS: ATORVASTATIN 40 MG TAB PO SCH (20:36)
[2016-06-20] MEDS: MIRTAZAPINE TAB 15 MG TAB PO SCH (20:36)
[2016-06-20] MEDS: TRAZODONE HCL 50 MG TAB PO SCH (20:36)
[2016-06-21] MEDS: AMPICILLIN IV 1 GM in SODIUM CHLOR 0.9% AD-VAN 50ML 50 ML IV SCH ×3 (01:36→14:32)
[2016-06-21 03:30] VITALS: BP 115/76; PULSE 78; TEMP 36.4; O2SAT 93
[2016-06-21] MEDS: DICLOFENAC SOD 1% GEL 100 GM TUBE EXT SCH ×3 (05:50→21:18)
[2016-06-21 06:59] LABS: PROTHROMBIN TIME (PATIENT) 21.6 SECONDS (9.0-12.0)
[2016-06-21 07:09] LABS: PARTIAL THROMBOPLASTIN RATIO 3.2
[2016-06-21 07:23] VITALS: BP 143/80; PULSE 79; TEMP 36.9; O2SAT 97
[2016-06-21] MEDS: FUROSEMIDE 40 MG TAB PO SCH ×2 (08:29→17:57)
[2016-06-21] MEDS: POTASSIUM CHLORIDE 20 MEQ TABCR PO SCH (08:30)
[2016-06-21] MEDS: LISINOPRIL 20 MG TAB PO SCH (08:30)
[2016-06-21] MEDS: ALLOPURINOL 300 MG TAB PO SCH (08:31)
[2016-06-21] MEDS: PANTOprazole SOD 40 MG TAB PO SCH ×2 (08:31→21:16)
[2016-06-21] MEDS: CARVEDILOL 12.5 MG TAB PO SCH ×2 (08:33→21:16)
[2016-06-21] MEDS: ASPIRIN 81 MG CHEW PO SCH (08:34)
[2016-06-21] MEDS: INSULIN ASPART 100 UNITS/ML 3 ML PEN SC SCH ×4 (08:37→21:21)
[2016-06-21] MEDS: INSULIN GLARGINE SOLOSTAR 100 UNITS/ML 3 ML PEN SC SCH ×2 (08:40→21:20)
[2016-06-21] MEDS: LIDODERM (LIDOCAINE) PATCH 5% TD SCH (08:41)
[2016-06-21] MEDS ORDERED: BUPIVACAINE 0.5 % 5 MG/1 ML MPF 30ML VIAL IA ONE (09:45)
[2016-06-21] MEDS ORDERED: BETAMETH SOD PHOS/ACETATE IA 6 MG/ML IA ONE (09:45)
--- NOTE | 2016-06-21 09:53 | Pharmacy Progress Note ---
Glycemic Control: Progress Nt Date of Service June 21, 2016. Scope Glycemic Pharmacist consulted by on 06/18/16 for glycemic control and to write orders per [facility] inpatient glycemic control protocol. Objective Accuchecks BSG (last 24hrs): Test 06/20/16 11:15 06/20/16 16:22 06/20/16 20:25 06/21/16 06:50 Bedside Glucose 185 mg/dl (70-99) 149 mg/dl (70-99) 137 mg/dl (70-99) 134 mg/dl (70-99) Test 06/21/16 08:59 Laboratory Data (last 24hrs) Test 06/21/16 08:59 Recent Pertinent Medications Outpatient Anti-diabetic Regimen: * Novolog 70/30: 55 units BIDM * A1c = 7.4 % from 04/07/16 Risk Factors for Insulin Resistance: * Infection: E. faecalis UTI - On Ampicillin IV * IVF: Hep gtt contributing to dextrose source * Diet:AHA/DM2/Lo NA Assessment & Plan ASSESSMENT: * ADA & AACE recommend a goal blood sugar range 140-180 mg/dl for the majority of critically ill & non-critically ill patients. However, more stringent targets may be selected in individual cases. Initial: * 80yo T2DM male with adequate degree of outpatient control per recent A1c of 7.4% in 03/2016. * Outpatient regimen is premixed basal/prandial insulin of NovoLog 70/30 mix insulin. Total daily dose is 110 units/day * Pre-mixed insulin is difficult to titrate since it is already in a fixed distribution of basal:prandial insulin. Continuing pre-mixed insulin for admission typically lead to hypoglycemia d/t changing PO status but rapid acting insulin is unable to be held. * Outpatient regimen is heavily weighted with basal insulin (70% basal:30% prandial) which is most likely covering some prandial needs. * Preferred distribution of basal:prandial insulin in house is 50%:50% basal: prandial to help prevent hypoglycemia when PO intake/status changes * Home regimen held on admission but patient only initiated on SQ bolus insulin per CF+CR. Pharmacy consulted on 06/18 and made the following adjustments: added basal insulin and adjusted regimen based based on conservative outpatient dosing d/t dec PO intake 06/19/16: * Pt known to pharmacy from previous admissions/glycemic consults, most recently Feb 2016. Pt required 130+ units of insulin per day this admission with similar risk factors for hyperglycemia and ironically reduced renal function. However, Pt was adequately taking PO this admission. * Yesterday, initiated SQ basal bolus insulin regimen based on estimated TDD of ~ 100 units which was slightly more conservative than outpatient dosing and previous admission d/t decreased PO intake. * AM fasting BSG in goal range this morning at 148mg/dl after receiving only 25 units of Lantus * PO intake still is poor --> pt only ate lunch yesterday * Concern that current dosing may need empirically reduced to prevent hypo d/t significant improvement in BSGs only after one dose of Lantus. * Dosing Lantus based on BSG is a safe way to rapidly titrate Lantus when true basal needs are unknown. Will change to this dosing and titrate based on BSG trends & PO intake. 06/20/16: * BSGs remain well-controlled on current regimen. * DM regimen appearing basal heavy as a result of minimal po intake; Requiring 38 units of insulin per day - 70-80% of which is basal insulin presently. * Insulin needs may increase as po intake improves. Pt's insulin requirements were > 100 units/day during past admission when po intake at b/l. * Will continue to monitor therapy and adjust insulin as deemed necessary. No changes warranted at this time. 06/21/16 * BSGs remain appropriately controlled ranging from 114 - 185 mg/dl during the past 24 hours. FBG this morning was 134 mg/dl. * PO intake seems to be improving slowly since yesterday. * Total daily dose of insulin = 41 units which is appropriately distributed 50/ 50 among basal and prandial needs. No with increased PO intake I suspect increased insulin needs in response * Only change that seems reasonable at this time is to change BSG scale for Lantus dose (See below). Otherwise, continue current Novolog regimen. PLAN FOR INPATIENT GLYCEMIC CONTROL: * Adjust Lantus BID per BSG scale * 0 units: BSG below 110 mg/dl * 10 units: BSG 110-140 mg/dl * 20 units: BSG above 140 mg/dl * Novolog ACHS * Continue correction factor 20 mg/dl/unit * Continue carb ratio 1 unit per 6 grams CHO consumed * Continue goal range Low 120 mg/dL - High 150 mg/dL LOOKING AHEAD TO DISCHARGE: * Recommend pt resume outpatient DM regimen upon discharge. * Please note that the plan above was derived based on current level of insulin resistance and hospital stress. These recommendations are appropriate for inpatient admission only. Plan of care upon discharge will need to be reassessed to avoid potential outpatient hypo/hyperglycemia. Thank you.
[2016-06-21 10:18] LABS: BUN/CREATININE RATIO 17.9 (10-20); CALCIUM 8.6 mg/dl (8.5-10.1); CREATININE 1.3 mg/dl (0.60-1.40); POTASSIUM 3.6 mmol/L (3.5-5.1)
--- NOTE | 2016-06-21 11:32 | Family Medicine Progress Note ---
Progress Note Date of Service June 21, 2016. Subjective Pt evaluation today including: conversation w/ patient, physical exam, chart review, lab review Doing better today. Awake alert and oriented Denied chest pain, shortness of breath, orthopnea, paroxysmal nocturnal dyspnea. Constitutional: No chills, No fever Eyes: No worsening of vision ENT: No hearing loss Respiratory: No cough, No sputum, No wheezing Cardiovascular: + edema, No PND, No chest pain, No orthopnea Abdomen: No nausea, No pain, No vomiting Musculoskeletal: + joint pain (Knee jay Right knee, hips, ankles) Male : No dysuria, No urinary frequency Neurologic: No memory loss Psychiatric: No anhedonism, No depression symptoms Heme: No abnormal bleeding/bruising Medications Current Inpatient Medications Medications (Trade) Dose Ordered Sig/Aileen Route Start Time Stop Time Status Last Admin Dose Admin Acetaminophen (Tylenol Tab) 650 mg Q4H PRN PO 06/17/16 18:30 07/17/16 18:29 06/20/16 19:45 650 MG Al Hydrox/Mg Hydrox/Simethicone (Maalox Max Susp) 15 ml Q4H PRN PO 06/17/16 18:30 07/17/16 18:29 Ondansetron HCl (Zofran Inj) 4 mg Q6H PRN IV 06/17/16 18:30 07/17/16 18:29 Insulin Aspart (novoLOG ASPART) SLIDING SCALE G... ACHS SC 06/17/16 21:00 07/17/16 20:59 06/21/16 08:37 8 UNITS Aspirin (Aspirin Chew) 81 mg QAM PO 06/18/16 08:00 07/18/16 08:59 06/21/16 08:34 81 MG Atorvastatin Calcium (Lipitor Tab) 80 mg QPM PO 06/17/16 21:00 07/17/16 20:59 06/20/16 20:36 80 MG Lidocaine (Lidoderm Patch 5%) 1 patch DAILY@0900 TD 06/18/16 09:00 07/18/16 08:59 06/21/16 08:41 1 PATCH Mirtazapine (Remeron Tab) 15 mg HS PO 06/17/16 21:00 07/17/16 20:59 06/20/16 20:36 15 MG Trazodone HCl (Desyrel Tab) 50 mg HS PO 06/17/16 21:00 07/17/16 20:59 06/20/16 20:36 50 MG Pantoprazole Sodium (Protonix Tab) 40 mg BID PO 06/17/16 20:00 07/17/16 20:59 06/21/16 08:31 40 MG Miscellaneous (Remove Lidoderm Patch) 1 ea DAILY@21 N/A 06/17/16 21:00 07/17/16 20:59 06/20/16 20:37 1 EA Morphine Sulfate (MoRPHine SULFATE INJ) 2 mg Q4 PRN IV 06/17/16 18:30 07/01/16 18:29 Oxycodone/ Acetaminophen (Percocet 5-325mg Tab) 1 tab Q4H PRN PO 06/17/16 18:30 07/01/16 18:29 06/20/16 19:45 1 TAB Diclofenac Sodium (Voltaren 1% Top Gel) 1 appln Q8 EXT 06/17/16 18:30 07/17/16 18:29 06/21/16 08:25 1 APPLN Glucose (Glucose 40% Gel) 15-30 GRAMS 15 GRAMS... UD PRN PO 06/17/16 19:00 07/17/16 18:59 Glucose (Glucose Chew Tab) 4-8 Tablets 4 Tabl... UD PRN PO 06/17/16 19:00 07/17/16 18:59 Dextrose (Dextrose 50% 50ML Syringe) 25-50ML OF 50% DW IV FOR... UD PRN IV 06/17/16 19:00 07/17/16 18:59 Glucagon (Glucagon Inj) 1 mg UD PRN SQ 06/17/16 19:00 07/17/16 18:59 Miconazole Nitrate (Desenex Powder) 1 appln PRN PRN EXT 06/18/16 03:30 07/18/16 03:29 Carvedilol (Coreg Tab) 18.75 mg BID PO 06/18/16 08:00 07/18/16 07:59 06/21/16 08:33 18.75 MG Lisinopril (Zestril Tab) 20 mg QAM PO 06/18/16 08:00 07/18/16 07:59 06/21/16 08:30 20 MG Miscellaneous Information (Consult Glycemic Management Pharmacy) 1 ea UD PRN N/A 06/18/16 14:09 07/18/16 14:08 Insulin Glargine (Lantus Solostar Pen) SEE PROTOCOL TEXT BID SC 06/19/16 09:00 07/19/16 08:59 06/21/16 08:40 10 UNIT Folic Acid (Folvite Tab) 1 mg QAM PO 06/19/16 09:00 07/19/16 08:59 06/21/16 08:33 1 MG Furosemide (Lasix Tab) 80 mg QAM PO 06/20/16 09:00 07/20/16 08:59 06/21/16 08:29 80 MG Furosemide 40 mg 40 mg DAILY@1700 PO 06/19/16 17:00 07/19/16 16:59 06/20/16 16:42 40 MG Ampicillin Sodium/ Sodium Chloride (Ampicillin Iv/ Nss Ad-Van 50ml) 50 ml @ 100 mls/hr Q6@02,08,14,20 IV 06/20/16 08:00 06/29/16 07:59 06/21/16 08:25 100 MLS/HR Potassium Chloride (Klor-Con Tab) 40 meq QAM PO 06/21/16 09:00 07/21/16 08:59 06/21/16 08:30 40 MEQ Allopurinol (Zyloprim Tab) 300 mg QAM PO 06/21/16 09:00 07/21/16 08:59 06/21/16 08:31 300 MG Warfarin Sodium (Coumadin Tab) 10 mg DAILY@16 PO 06/21/16 16:00 07/21/16 15:59 Objective Vital Signs Date Time Temp Pulse Resp B/P Pulse Ox O2 Delivery O2 Flow Rate FiO2 06/21/16 08:00 Room Air 06/21/16 07:23 36.9 79 18 143/80 97 Room Air 06/21/16 04:02 Room Air 06/21/16 03:30 36.4 78 19 115/76 93 Room Air 06/21/16 00:02 Room Air 06/20/16 23:01 37.2 90 20 106/61 93 Room Air 06/20/16 21:37 36.9 06/20/16 20:07 38.2 85 18 97/59 93 Room Air 06/20/16 20:00 Room Air 06/20/16 15:49 37.5 81 18 160/78 95 Room Air 06/20/16 15:18 Room Air 06/20/16 11:46 36.7 73 19 127/77 95 Room Air 06/20/16 11:39 Room Air Physical Exam General Appearance: WD/WN, no apparent distress Eyes: normal inspection Neck: supple Respiratory/Chest: chest non-tender, + decreased breath sounds Cardiovascular: + irregularly irregular Abdomen: normal bowel sounds, non tender, soft Extremities: + pedal edema, + pertinent finding (chronic venous stasis pigmentation) Neurologic/Psychiatric: alert, normal mood/affect, oriented x 3 Skin: normal color, + pertinent finding (left lower leg pigmentation from chronic venous stasis) Laboratory Results 06/21/16 08:59 Test 06/21/16 06:38 06/21/16 06:50 06/21/16 08:59 Prothrombin Time 21.6 SECONDS (9.0-12.0) Prothromb Time International Ratio 2.0 (0.9-1.1) Activated Partial Thromboplast Time 84.2 SECONDS (21.0-31.0) Partial Thromboplastin Ratio 3.2 Uric Acid 7.2 mg/dl (2.6-7.2) Bedside Glucose 134 mg/dl (70-99) Anion Gap 8.0 mmol/L (3-11) Est Creatinine Clear Calc Drug Dose 63.8 ml/min Estimated GFR () 59.7 Estimated GFR (Non- 51.5 BUN/Creatinine Ratio 17.9 (10-20) Calcium Level 8.6 mg/dl (8.5-10.1) Troponin I 0.343 ng/ml (0-0.045) Assessment and Plan 80-year-old male with a past medical history of atrial fibrillation, hypertension, DVT/PE, diabetes, coronary artery disease with CABG , hyperlipidemia currently a resident at [facility] presented to ER with complaints of abdominal dysfunction increased lower extremity swelling and altered mental status Mildly elevated troponin /CAD s/p CABG: Likely demand ischemia - Troponin 0.017-->1.4-->2.3-->2.3-->0.9-->0.55 - EKG with incomplete left bundle branch block pattern with ST-T wave abnormality. - Echo: * Left ventricular systolic function is mildly reduced. * Ejection Fraction = 40-45%. * There is mild concentric left ventricular hypertrophy. * There are regional wall motion abnormalities as specified. * The aortic valve is mild to moderately calcified. * No hemodynamically significant valvular aortic stenosis. * There is moderate mitral regurgitation. - Heparin discontinued today after reaching goal INR of 2. - Continue aspirin, Coreg 18.75 mg, lisinopril, atorvastatin Chronic atrial fibrillation: -rate control with Coreg -Coumadin for anticoagulation Chronic heart failure with mild systolic dysfunction : - Echo as above -Continue Lasix - I and Os Metabolic encephalopathy / delirium- likely secondary to UTI, now resolved - Head CT on admission negative UTI: - UA positive for large leuk esterase, 3+ bacteria - Urine culture positive for enterococcus -Switched to amoxicillin 500 mg 3 times a day for total of 14 days - Ryees catheter discontinued Right knee pain: likely secondary to gout - Status post injection into right knee - Underlying severe Osteoarthritis - Appreciate orthopedic recommendations - Allopurinol. Consider prednisone burst - Morphine 2 mg every 2 hours as needed for severe pain - Percocet 1 tab every 4 hours for less severe pain Chronic Lower extremity edema secondary to venous stasis - wound care consult - continue lasix Acute kidney injury in the setting of CKD - Creatinine at 1.3 - Monitor creatinine History of PE/DVT: - Venous Doppler: Negative -Currently on Coumadin Type 2 diabetes: - Hemoglobin A1c at 7.4( 04/07/16) - Sliding-scale insulin - Glycemic consults Obstructive sleep apnea. - follow History of pulmonary embolism/DVT-no DVT noted on ultrasound today - On Coumadin Involuntary weight loss: Monitor DVT prophylaxis Coumadin Full code PT/OT Disposition : Monitor in telemetry Resident Tracking Resident Involvement: Resident Care Provided Care Provided: Adult Hospital Medicine Reviewed: Pt Seen/Exam by Me History Resident Physician Supervision Note: I interviewed and examined the patient. Discussed with Dr. Pruett and agree with findings and plan as documented in the note. Any exceptions or clarifications are listed here: Improving, was able to stand for 7 minutes today. Is going to have knee injected this evening by orthopedic Tele and vitals reviewed Obese, NAD irreg irreg,1/6 COLBY RUSB Clear to auscultation bilaterally, breathing unlabored Abd +BS soft NT with mild distension Ext left leg anterior tibia with ecchymosis and small 2 cm clear fluid filled blister, right knee with mild effusion, no erythema or heat -Gout-or 30 performed steroid injection in knee, consider prednisone burst given CKD (no NSAIDs or colchicine) -continue allopurinol and watch for flare of gout -continue PT -Disagree with above, he does not have Abdominal dysfunction, he had ambulatory dysfunction Demand ischemia with peak trop 2.3--> trended downward, heparin gtt for bridging is now able to be discontinued as he is back to therapeutic INR (for PAF and h/o DVT/PE), continue Coumadin and monitor INR -Discontinue Reyes in the morning -Hopeful for discharge back to [facility] tomorrow Documented By: Dayana Levi
[2016-06-21 11:39] VITALS: BP 140/73; PULSE 78; TEMP 36.8; O2SAT 96
[2016-06-21 14:35] LABS: PARTIAL THROMBOPLASTIN RATIO 1.7
[2016-06-21] MEDS: WARFARIN SOD 10 MG TAB PO SCH (15:36)
[2016-06-21 15:48] VITALS: BP 133/74; PULSE 83; TEMP 37.2; O2SAT 94
--- NOTE | 2016-06-21 16:24 | Cardiology Follow-Up ---
Subjective General Date of Service: June 21, 2016. Pt evaluation today including: conversation w/ patient, physical exam, chart review, lab review, review of studies, review of inpatient medication list History of Present Illness The patient is a 80 year old male seen in follow up. Denies chest discomfort or shortness of breath. No orthopnea or PND. Lower extremity edema improved. Oral lasix restarted. Hemoglobin remains stable. Participating in PT. Patient offers no complaints this time. Allergies Coded Allergies: NO KNOWN DRUG ALLERGIES (Verified Allergy, Unknown, ., 06/17/16) Social History Smoking Status: Never Smoker Hx Tobacco Use In Past Year?: No Hx Alcohol Use - Type And Amou: No Hx Substance Use - Type And Am: No Problem List Medical Problems: (1) Acute electrocardiogram changes Status: Acute (2) Anemia Status: Acute (3) CHF (congestive heart failure) Status: Acute (4) Dysphagia Status: Acute (5) Edema Status: Acute (6) Hypoglycemia Status: Acute (7) Insulin dependent diabetes mellitus Status: Acute (8) Jaw pain Status: Acute Review of Systems Respiratory: No cough, No dyspnea at rest, No hemoptysis, No shortness of breath, No sputum, No wheezing Cardiac: + edema, No PND, No chest pain, No orthopnea, No palpitations Physical Exam Vital Signs Last Vital Signs Documentation Date Time Temp Pulse Resp B/P Pulse Ox O2 Delivery O2 Flow Rate FiO2 06/21/16 15:48 37.2 83 18 133/74 94 Room Air 06/18/16 05:02 0.0 Physical Exam Constitutional: General Apperance: overweight Level of Distress: chronically ill Lungs: Auscultation: no wheezing, no rales/crackles, no rhonchi Cardiovascular: Heart Auscultation: normal S1, normal S2, I/ WSM, irregular rate rhythm Peripheral Pulses: Bruits: none appreciated Abdomen: Bowel Sounds: normal Inspection & Palpation: soft, non-distended, no tenderness, guarding & rebound, no masses Extremities: no cyanosis, no clubbing, no ulcers, edema Neurologic: Cranial Nerves: grossly intact Assessment and Plan Assessment and Plan FINAL IMPRESSION: 1. Mild troponin elevation - likely related to CHF, ana m on CKD - No anginal symptoms - patient participating in PT without symptoms. 2. 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 - outpatient lasix restarted 3. 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 4. Chronic rate controlled atrial fibrillation with subtherapeutic INR. - coumadin on hold since admission 5. Normocytic anemia - likely related to chronic disease - hgb stable 6. Chronic kidney disease stage III-IV - creatinine stable today 7. History of pulmonary embolus. 8. Altered mental status - resolved - likely secondary to enterococcus urinary tract infection. PLAN AND RECOMMENDATIONS: Discontinue intravenous heparin. Continue coumadin for goal INR 2.0 to 3.0. Continue other cardiovascular medications including aspirin, carvedilol, lisinopril, and high dose atorvastatin. Antibiotics per IM. No further cardiac testing at this time. Laboratory Results Last 24 Hours Test 06/20/16 16:22 06/20/16 20:25 06/21/16 06:38 06/21/16 06:50 Bedside Glucose 149 mg/dl 137 mg/dl 134 mg/dl Prothrombin Time 21.6 SECONDS Prothromb Time International Ratio 2.0 Activated Partial Thromboplast Time 84.2 SECONDS Partial Thromboplastin Ratio 3.2 Uric Acid 7.2 mg/dl Test 06/21/16 08:59 06/21/16 11:25 06/21/16 14:12 Sodium Level 139 mmol/L Potassium Level 3.6 mmol/L Chloride Level 102 mmol/L Carbon Dioxide Level 29 mmol/L Anion Gap 8.0 mmol/L Blood Urea Nitrogen 23 mg/dl Creatinine 1.30 mg/dl Est Creatinine Clear Calc Drug Dose 63.8 ml/min Estimated GFR () 59.7 Estimated GFR (Non- 51.5 BUN/Creatinine Ratio 17.9 Random Glucose 154 mg/dl Calcium Level 8.6 mg/dl Troponin I 0.343 ng/ml Bedside Glucose 132 mg/dl Activated Partial Thromboplast Time 45.3 SECONDS Partial Thromboplastin Ratio 1.7
[2016-06-21 19:57] VITALS: BP 144/77; PULSE 81; TEMP 37.7; O2SAT 94
--- NOTE | 2016-06-21 20:04 | PROGRESS NOTE ---
DATE: 06/21/2016 SUBJECTIVE: An 80-year-old gentleman admitted with decreased ambulatory ability and swelling in his lower extremities. We have been consulted for his right knee pain and leg pain. He has got knee arthritis as well as hip arthritis. We aspirated his knee and it shows no growth, but did have some gout crystals. He would like to try an injection. OBJECTIVE: VITAL SIGNS: Temperature is 37.2. Vital signs stable. GENERAL: Reveals an elderly male. He seems to be much more awake, alert and appropriate this afternoon. EXTREMITIES: Examination of the right leg reveals his hip to be stiff. He has got a small knee effusion. No warmth. Range of motion is 0-90 and limited by he is being in bed. LABORATORY DATA: Cultures of his right knee fluid revealed no growth. The crystal analysis does show gout crystals. ASSESSMENT: An 80-year-old male admitted with decreased ambulatory ability and lower leg pain and discomfort and swelling with right knee pain and effusion consistent with some degenerative joint disease and gout. PLAN: Will inject his knee today. He can have this done up to every 3 months or so if needed. Any questions can be directed to me at [phone]. I do not think there is much more from the orthopedic standpoint. He does have severe hip arthritis but really not an operative candidate at this time in any sense. PROCEDURE: The patient's right knee was prepped with alcohol. 2 mL Celestone and 8 mL Marcaine injected right knee in sterile fashion. The patient tolerated procedure well with no complications.
[2016-06-21] MEDS: AMOXICILLIN 500 MG CAP PO SCH (21:14)
[2016-06-21] MEDS: MIRTAZAPINE TAB 15 MG TAB PO SCH (21:16)
[2016-06-21] MEDS: ATORVASTATIN 40 MG TAB PO SCH (21:17)
[2016-06-21] MEDS: TRAZODONE HCL 50 MG TAB PO SCH (21:18)
[2016-06-22] VITALS: BP 129/80; PULSE 98; TEMP 36.9; O2SAT 97
[2016-06-22 03:56] VITALS: BP 155/84; PULSE 98; TEMP 36.4; O2SAT 99
[2016-06-22] MEDS: DICLOFENAC SOD 1% GEL 100 GM TUBE EXT SCH ×2 (05:41→14:16)
[2016-06-22 07:13] LABS: HEMATOCRIT 30.1 % (42-52); MEAN CELL VOLUME 87.5 fL (80-100); MEAN CORPUSCULAR HEMOGLOBIN 28.2 pg (25-34); MEAN CORPUSCULAR HGB CONC 32.2 g/dl (32-36); MEAN PLATELET VOLUME 8.8 fL (7.4-10.4); PLATELET COUNT 224 K/uL (130-400); RED BLOOD COUNT 3.44 M/uL (4.7-6.1); WHITE BLOOD COUNT 5.67 K/uL (4.8-10.8)
[2016-06-22 07:30] VITALS: BP 159/100; PULSE 85; TEMP 36.5; O2SAT 96
[2016-06-22 07:43] LABS: INR 2.1 (0.9-1.1); PARTIAL THROMBOPLASTIN RATIO 1.8; PROTHROMBIN TIME (PATIENT) 23.7 SECONDS (9.0-12.0)
[2016-06-22] MEDS: AMOXICILLIN 500 MG CAP PO SCH ×2 (08:06→14:15)
[2016-06-22] MEDS: POTASSIUM CHLORIDE 20 MEQ TABCR PO SCH (08:06)
[2016-06-22] MEDS: FUROSEMIDE 40 MG TAB PO SCH ×2 (08:06→17:29)
[2016-06-22] MEDS: CARVEDILOL 12.5 MG TAB PO SCH (08:07)
[2016-06-22] MEDS: LISINOPRIL 20 MG TAB PO SCH (08:07)
[2016-06-22] MEDS: ALLOPURINOL 300 MG TAB PO SCH (08:07)
[2016-06-22] MEDS: LIDODERM (LIDOCAINE) PATCH 5% TD SCH (08:17)
[2016-06-22] MEDS: INSULIN ASPART 100 UNITS/ML 3 ML PEN SC SCH ×3 (08:23→17:31)
[2016-06-22] MEDS: INSULIN GLARGINE SOLOSTAR 100 UNITS/ML 3 ML PEN SC SCH (08:24)
[2016-06-22] MEDS: OXYCODONE/ACETAMINOPHEN 5-325 TAB PO PRN ×2 (08:36→14:35)
[2016-06-22] MEDS: ASPIRIN 81 MG CHEW PO SCH (09:21)
[2016-06-22] MEDS: PANTOprazole SOD 40 MG TAB PO SCH (09:21)
[2016-06-22 11:19] VITALS: BP 110/67; PULSE 68; TEMP 36.6; O2SAT 98
--- NOTE | 2016-06-22 11:51 | Cardiology Follow-Up ---
Subjective General Date of Service: June 22, 2016. Pt evaluation today including: conversation w/ patient, physical exam, chart review, lab review, review of studies, review of inpatient medication list History of Present Illness The patient is a 80 year old male seen in follow up. Denies chest discomfort or shortness of breath. No orthopnea or PND. Lower extremity edema unchanged. Knee injested by orthopedic surgeon last night. Hemoglobin remains stable. Participating in PT. Patient sitting in a chair. Allergies Coded Allergies: NO KNOWN DRUG ALLERGIES (Verified Allergy, Unknown, ., 06/17/16) Social History Smoking Status: Never Smoker Hx Tobacco Use In Past Year?: No Hx Alcohol Use - Type And Amou: No Hx Substance Use - Type And Am: No Problem List Medical Problems: (1) Acute electrocardiogram changes Status: Acute (2) Anemia Status: Acute (3) CHF (congestive heart failure) Status: Acute (4) Dysphagia Status: Acute (5) Edema Status: Acute (6) Hypoglycemia Status: Acute (7) Insulin dependent diabetes mellitus Status: Acute (8) Jaw pain Status: Acute Review of Systems Respiratory: + dyspnea on exertion, No cough, No dyspnea at rest, No hemoptysis , No shortness of breath, No sputum, No wheezing Cardiac: + edema, No PND, No chest pain, No claudication, No orthopnea, No palpitations Physical Exam Vital Signs Last Vital Signs Documentation Date Time Temp Pulse Resp B/P Pulse Ox O2 Delivery O2 Flow Rate FiO2 06/22/16 11:19 36.6 68 18 110/67 98 Room Air 06/18/16 05:02 0.0 Physical Exam Constitutional: General Apperance: overweight Level of Distress: chronically ill Head: normocephalic, atraumatic Lungs: Auscultation: no wheezing, no rales/crackles, no rhonchi Cardiovascular: Heart Auscultation: normal S1, normal S2, I/ WSM, irregular rate rhythm Peripheral Pulses: Bruits: none appreciated Abdomen: Bowel Sounds: normal Inspection & Palpation: soft, non-distended, no tenderness, guarding & rebound, no masses Extremities: no cyanosis, no clubbing, no ulcers, edema Neurologic: Cranial Nerves: grossly intact Assessment and Plan Assessment and Plan FINAL IMPRESSION: 1. Mild troponin elevation - likely related to CHF, ana m on CKD - No anginal symptoms - patient participating in PT without symptoms. 2. 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 - outpatient lasix restarted 3. 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 Chronic rate controlled atrial fibrillation with therapeutic INR. 5. Normocytic anemia - likely related to chronic disease - hgb stable 6. Chronic kidney disease stage III-IV - creatinine stable 7. History of pulmonary embolus. 8. Altered mental status - resolved - likely secondary to enterococcus urinary tract infection. PLAN AND RECOMMENDATIONS: Conservative medial management Continue coumadin for goal INR 2.0 to 3.0. Continue other cardiovascular medications including aspirin, carvedilol, lisinopril, and high dose atorvastatin. Antibiotics per IM. Encouraged continued participation with PT. No further cardiac testing at this time. Laboratory Results Last 24 Hours Test 06/21/16 14:12 06/21/16 15:57 06/21/16 20:20 06/22/16 06:47 Activated Partial Thromboplast Time 45.3 SECONDS Partial Thromboplastin Ratio 1.7 Bedside Glucose 157 mg/dl 199 mg/dl 313 mg/dl Test 06/22/16 06:55 06/22/16 11:05 White Blood Count 5.67 K/uL Red Blood Count 3.44 M/uL Hemoglobin 9.7 g/dL Hematocrit 30.1 % Mean Corpuscular Volume 87.5 fL Mean Corpuscular Hemoglobin 28.2 pg Mean Corpuscular Hemoglobin Concent 32.2 g/dl RDW Standard Deviation 53.2 fL RDW Coefficient of Variation 16.4 % Platelet Count 224 K/uL Mean Platelet Volume 8.8 fL Prothrombin Time 23.7 SECONDS Prothromb Time International Ratio 2.1 Activated Partial Thromboplast Time 45.5 SECONDS Partial Thromboplastin Ratio 1.8 Bedside Glucose 323 mg/dl
[2016-06-22] MEDS ORDERED: INSULIN GLARGINE SOLOSTAR 100 UNITS/ML 3 ML PEN SC ONE (12:00)
--- NOTE | 2016-06-22 12:26 | PROGRESS NOTE ---
DATE: 06/22/2016 SUBJECTIVE: 80-year-old gentleman admitted with decreased ambulatory ability and leg discomfort. We put a shot in his knee yesterday. He is feeling quite a bit better from the knee standpoint. No new complaints. OBJECTIVE: VITAL SIGNS: Temperature 36.6. Vital signs stable. PHYSICAL EXAMINATION: Examination of the right knee reveals this effusion to be in minimal. He has no particular pain with knee motion. Range of motion about 15-90 degrees. He is neurologically intact. Has a very stiff hip. ASSESSMENT: 80-year-old gentleman admitted with decreased ambulatory ability with right knee swelling and aspirate consistent with gout. We put this shot in his knee and he is doing better. PLAN: At this point we are going to sign off. He can get injections into his knee up to every 3 months. If there is any other orthopedic issues or questions do not hesitate to contact me at [phone].
--- NOTE | 2016-06-22 14:03 | Pharmacy Progress Note ---
Glycemic: Assessment & Plan Date of Service June 22, 2016. Assessment & Plan Outpatient Anti-diabetic Regimen: * Novolog 70/30: 55 units BIDM * A1c = 7.4 % from 04/07/16 ASSESSMENT: * ADA & AACE recommend a goal blood sugar range 140-180 mg/dl for the majority of critically ill & non-critically ill patients. However, more stringent targets may be selected in individual cases. 06/22/16: * BSGs have been markedly elevated today (313, 323). PO intake has increased, so patient will require larger insulin doses. * Increase basal insulin today and tighten correctional/prandial parameters. * Will continue to adjust until BSGs stabilize and hyperglycemia is resolved. 06/21/16 * BSGs remain appropriately controlled ranging from 114 - 185 mg/dl during the past 24 hours. FBG this morning was 134 mg/dl. * PO intake seems to be improving slowly since yesterday. * Total daily dose of insulin = 41 units which is appropriately distributed 50/ 50 among basal and prandial needs. Now with increased PO intake I suspect increased insulin needs in response * Only change that seems reasonable at this time is to change BSG scale for Lantus dose (See below). Otherwise, continue current Novolog regimen. 06/20/16 * BSGs remain well-controlled on current regimen. * DM regimen appearing basal heavy as a result of minimal po intake; Requiring 38 units of insulin per day - 70-80% of which is basal insulin presently. * Insulin needs may increase as po intake improves. Pt's insulin requirements were > 100 units/day during past admission when po intake at b/l. * Will continue to monitor therapy and adjust insulin as deemed necessary. No changes warranted at this time. 06/19/16 * Pt known to pharmacy from previous admissions/glycemic consults, most recently Feb 2016. Pt required 130+ units of insulin per day this admission with similar risk factors for hyperglycemia and ironically reduced renal function. However, Pt was adequately taking PO this admission. * Yesterday, initiated SQ basal bolus insulin regimen based on estimated TDD of ~ 100 units which was slightly more conservative than outpatient dosing and previous admission d/t decreased PO intake. * AM fasting BSG in goal range this morning at 148mg/dl after receiving only 25 units of Lantus * PO intake still is poor --> pt only ate lunch yesterday * Concern that current dosing may need empirically reduced to prevent hypo d/t significant improvement in BSGs only after one dose of Lantus. * Dosing Lantus based on BSG is a safe way to rapidly titrate Lantus when true basal needs are unknown. Will change to this dosing and titrate based on BSG trends & PO intake. 06/18/16 * 80yo T2DM male with adequate degree of outpatient control per recent A1c of 7.4% in 03/2016. * Outpatient regimen is premixed basal/prandial insulin of NovoLog 70/30 mix insulin. Total daily dose is 110 units/day * Pre-mixed insulin is difficult to titrate since it is already in a fixed distribution of basal:prandial insulin. Continuing pre-mixed insulin for admission typically lead to hypoglycemia d/t changing PO status but rapid acting insulin is unable to be held. * Outpatient regimen is heavily weighted with basal insulin (70% basal:30% prandial) which is most likely covering some prandial needs. * Preferred distribution of basal:prandial insulin in house is 50%:50% basal: prandial to help prevent hypoglycemia when PO intake/status changes PLAN FOR INPATIENT GLYCEMIC CONTROL: * Lantus 40 units SQ BID * Novolog ACHS * Correction factor: 15 mg/dl/unit * Carb ratio: 1 unit per 5 grams CHO consumed * Continue goal range Low 120 mg/dL - High 150 mg/dL LOOKING AHEAD TO DISCHARGE: * Recommend pt resume outpatient DM regimen upon discharge. * Please note that the plan above was derived based on current level of insulin resistance and hospital stress. These recommendations are appropriate for inpatient admission only. Plan of care upon discharge will need to be reassessed to avoid potential outpatient hypo/hyperglycemia. Thank you.
[2016-06-22 15:42] VITALS: BP 118/71; PULSE 62; TEMP 36.5; O2SAT 96
[2016-06-22] MEDS ORDERED: AMX500 PO (17:25)
[2016-06-22] MEDS ORDERED: PRED20TA PO (17:25)
[2016-06-22] MEDS ORDERED: TRAZ50TA35 PO (17:25)
[2016-06-22] MEDS ORDERED: ALL300 PO (17:25)
[2016-06-22] MEDS ORDERED: MCRK20 PO (17:25)
[2016-06-22] MEDS ORDERED: ULT50X PO (17:25)
[2016-06-22] MEDS ORDERED: MCTP EXT (17:27)
[2016-06-22] MEDS: WARFARIN SOD 10 MG TAB PO SCH (17:29)
--- NOTE | 2016-06-22 17:36 | Discharge Instructions ---
Discharge Instructions Date of Service June 22, 2016. Admission Reason for Admission: Ambulatory Dysfunction Discharge Discharge Diagnosis / Problem: altered mental status, ambulatory dysfunction Discharge Goals Goal(s): Decrease discomfort, Improve function Activity Recommendations Activity Level: OOB In Chair Therapies: Physical Therapy . Additional Information Patient informed of condition: Yes Advance Directives: Yes DNR: No Level of Care: Skilled Communicable Disease: No Prognosis: Improving Instructions / Follow-Up Instructions / Follow-Up 80-year-old male with a past medical history of atrial fibrillation, hypertension, DVT/PE, diabetes, coronary artery disease with CABG , hyperlipidemia currently a resident at [facility] presented to ER with complaints of abdominal dysfunction increased lower extremity swelling and altered mental status CAD/htn - Continue aspirin 81 mg, Coreg 18.75 mg BID, lisinopril 40 mg , atorvastatin 80 mg -Norvasc currently held Chronic atrial fibrillation: -rate control with Coreg -Coumadin for anticoagulation with goal INR between 2-3 - Recheck INR tomorrow Chronic heart failure with mild systolic dysfunction : - Echo as above -Continue Lasix as scheduled with KCl spironolactone currently held UTI: - UA positive for large leuk esterase, 3+ bacteria - Urine culture positive for enterococcus - amoxicillin 500 mg 3 times a day for 11 more days Right knee pain: likely secondary to gout - Status post injection into right knee - Underlying severe Osteoarthritis - 40 mg prednisone for 5 days - Continue Allopurinol - Tramadol for pain control Chronic Lower extremity edema secondary to venous stasis - continue lasix History of PE/DVT: -Currently on Coumadin , goal INR 2-3 Check INR tomorrow Type 2 diabetes: - Hemoglobin A1c at 7.4( 04/07/16) - Continue Novolog 70/30 , will need adjusting due to prednisone Obstructive sleep apnea. -CPAP Continue remaining home meds Please continue Physical therapy Follow-up with PCP in about a week May follow up with orthopedics for joint injection in 3 months Current Hospital Diet Patient's current hospital diet: AHA Diet (Heart Healthy), Low Sodium Diet (2gm Na), Diabetes Type 2 Diet Discharge Diet Recommended Diet: Diabetes Type 2 Diet Pending Studies Studies pending at discharge: no Laboratory Results Hemoglobin A1c Test 04/07/16 05:15 Range/Units Estimated Average Glucose 166 mg/dl Hemoglobin A1c 7.4 H 4.5-5.6 % Lipid Panel Test 04/05/16 04:33 Range/Units Triglycerides Level 334 H 0-150 mg/dl Cholesterol Level 220 H 0-200 mg/dl HDL Cholesterol 32 mg/dl Cholesterol/HDL Ratio 6.9 LDL Cholesterol, Calculated 121 mg/dl Medical Emergencies . Who to Call and When: Medical Emergencies: If at any time you feel your situation is an emergency, please call 911 immediately. . Non-Emergent Contact Non-Emergency issues call your: Primary Care Provider . . "Provider Documentation" section prepared by Valentina Pruett. . Core Measure Problem Core Measures: None
--- NOTE | 2016-06-22 17:37 | Discharge Summary ---
Discharge Summary Date of Service June 22, 2016. (Valentina Pruett MD) Discharge Summary Admission Date: June 17, 2016 at 18:36 Discharge Date: June 22, 2016 Discharge Disposition: [facility] facility Principal Diagnosis: ambulatory dysfunction Problems/Secondary Diagnoses: Altered mental status Immunizations: Have You Had Influenza Vaccine: Yes Influenza Vaccine Date: Nov 10, 2014 History of Tetanus Vaccine?: Yes Tetanus Immunization Date: Sep 10, 2008 History of Pneumococcal: Yes Pneumococcal Date: Feb 27, 2014 History of Hepatitis B Vaccine: Unknown Procedures: Right knee steroid injection Consultations: Cardiology, orthopedics (Valentina Pruett MD) Problems/Secondary Diagnoses: Hypertension History of DVT/PE Diabetes mellitus II Coronary artery disease with CABG Hyperlipidemia Ambulatory dysfunction Demand ischemia Chronic systolic CHF Moderate mitral regurgitation Long-term anticoagulation Chronic atrial fibrillation Acute Metabolic encephal secondary to UTI UTI Urinary incontinence Polyarthralgia secondary to gout Diffuse Osteoarthritis Chronic Lower extremity edema secondary to venous stasis Acute kidney injury in the setting of CKD III Type 2 diabetes mellitus Obstructive sleep apnea Unintentional weight loss (Dayana Levi MD) Medication Reconciliation New Medications: Prednisone (Prednisone) 20 Mg Tab 2 TAB PO DAILY for 5 Days, #10 TAB Allopurinol (Allopurinol) 300 Mg Tab 300 MG PO QAM for 30 Days, #30 TAB Amoxicillin (Amoxicillin) 500 Mg Cap 500 MG PO TID for 11 Days, #33 CAP Miconazole Nitrate (Desenex Shake Powder) 43 Appln/43 Gm Powd 1 APPLN EXT PRN PRN for Affected Skin Folds for 15 Days Potassium Chloride (Klor-Con M20) 20 Meq Tabcr 40 MEQ PO QAM for 20 Days Continued Medications: Aspirin (Aspirin Chewable) 81 Mg Chew 81 MG PO QAM for 30 Days HOLD FOR NOW, RESUME SOON LOWER ABDOMINAL HEMATOMA SUBSIDES Atorvastatin (Lipitor) 80 Mg Tab 80 MG PO QPM, TAB Carvedilol (Coreg) 12.5 Mg Tab 12.5 MG PO BID, TAB TAKES 3 TABS IN AM TAKES 2 TABS IN PM Ergocalciferol (Vitamin D) 50,000 Interunit Cap 60359 INTER.UNIT PO MONTHLY Furosemide (Lasix) 40 Mg Tab 40 MG PO QPM, TAB Furosemide (Lasix) 80 Mg Tab 80 MG PO QAM, TAB Insulin Aspart 70/30 (Novolog Mix 70/30) Susp 55 UNITS SC BID for 30 Days, BTL TAKES AC AND HS Lidocaine (Lidocaine) 1 Patch Tdsy 1 PATCH TD QAM for 15 Days, #15 PATCH 2 Refills Lisinopril (Zestril) 40 Mg Tab 40 MG PO QAM, TAB Mirtazapine (Remeron) 15 Mg Tab 15 MG PO HS, #30 Nitroglycerin (Nitrostat) 0.4 Mg Tab 0.4 MG UT PRN PRN for Chest Pain, BTL Omeprazole (Prilosec) 20 Mg Capcr 20 MG PO BID, CAP Sennosides-Docusate Sodium (Senokot S) 1 Tab Tab 1 TAB PO QAM for 15 Days, #15 TAB 2 Refills Sucralfate (Carafate) 1 Gm Tab 1 GM PO QID, TAB Tramadol HCl (Tramadol HCl) 50 Mg Tab 50 MG PO Q6H PRN for Pain, #10 TAB 0 Refills (This prescription has been renewed ) Trazodone Hcl (Trazodone) 50 Mg Tab 50 MG PO HS for 15 Days, TAB (This prescription has been renewed) MAY INCREASE UP TO 3TABS NEEDED FOR SLEEP Warfarin Sodium (Coumadin) 10 Mg Tab 10 MG PO QPM for 30 Days, TAB TAKES .5 TAB ON MONDAY AND FRIDAYS TAKES 10MG ALL OTHER DAYS DIRECTED (HOLD FOR NOW, RESUME SOON HEMATOMA ON THE LOWER ABDOMEN SUBSIDES) Discontinued Medications: Amlodipine (Norvasc) 5 Mg Tab 5 MG PO QAM, TAB Hydrocodone/Acetaminophen 5MG/325MG ([place] 5MG/325MG) Tab 1 TAB PO Q6H PRN for Pain, #10 TAB 0 Refills PRN PAIN Spironolactone (Aldactone) 25 Mg Tab 0.5 TAB PO QAM, TAB Discharge Exam Feels more alert and oriented today. he had received a steroid injection in his right knee yesterday which he states is life changing. Review of Systems: Constitutional: No chills, No fever Eyes: No worsening of vision Respiratory: No cough, No shortness of breath, No sputum Cardiovascular: No PND, No chest pain, No edema, No orthopnea Abdomen: No nausea, No pain, No vomiting Musculoskeletal: No joint pain Physical Exam: General Appearance: WD/WN, no apparent distress Eyes: normal inspection ENT: normal ENT inspection, hearing grossly normal Neck: supple Respiratory/Chest: chest non-tender, lungs clear, no respiratory distress, no accessory muscle use Cardiovascular: regular rate, rhythm Abdomen / GI: normal bowel sounds, non tender, soft Neurologic/Psychiatric: alert, normal mood/affect, oriented x 3 Skin: normal color (Valentina Pruett MD) Hospital Course This patient is an 80-year-old male, resident of [facility], sent to the emergency department today for possible change in mental status, ambulatory dysfunction and increased swelling to legs. The patient is a poor historian; therefore, the history is somewhat limited. He is currently complaining of feeling cold. He is also complaining of bilateral leg pain that is severe. He denies any nausea. He does have a poor appetite. He also notes some intermittent diarrhea over the last several weeks. He denies any blood in his stool. Denies abdominal pain. He has not been eating or drinking well. The patient has a history of A. fib and PE. He denies any chest pain or pressure. No shortness of breath. His INR is reportedly subtherapeutic. Mildly elevated troponin /CAD s/p CABG: Likely demand ischemia - Troponin 0.017-->1.4-->2.3-->2.3-->0.9-->0.55 - EKG with incomplete left bundle branch block pattern with ST-T wave abnormality. - Echo: * Left ventricular systolic function is mildly reduced. * Ejection Fraction = 40-45%. * There is mild concentric left ventricular hypertrophy. * There are regional wall motion abnormalities as specified. * The aortic valve is mild to moderately calcified. * No hemodynamically significant valvular aortic stenosis. * There is moderate mitral regurgitation. - Heparin was discontinued after goal INR of 2 with Coumadin - Continue aspirin, Coreg 18.75 mg twice daily, lisinopril, atorvastatin - Norvasc has been held- may be restarted based on blood pressure Chronic atrial fibrillation: -rate control with Coreg -Coumadin for anticoagulation Chronic heart failure with mild systolic dysfunction : - Echo as above -Continue Lasix and KCl - Aldactone has been held Metabolic encephalopathy / delirium- likely secondary to UTI, now resolved - Head CT on admission negative UTI: - UA positive for large leuk esterase, 3+ bacteria - Urine culture positive for enterococcus - Initially received daptomycin , ampicillin IV and was later switched to amoxicillin . Continue amoxicillin 500 mg 3 times a day for 11 more days. - Reyes catheter discontinued today, straight cath as needed Right knee pain: likely secondary to gout - Underlying severe Osteoarthritis -Orthopedics was consulted who had aspirated the right knee which confirmed crystals indicative of gouty arthritis, he also received steroid injection into the right knee yesterday. - Suspect if ankle pain is also secondary to gout, started on prednisone 40 mg daily for 5 days for treating gout. - Continue allopurinol - May use tramadol for severe pain Chronic Lower extremity edema secondary to venous stasis - continue lasix Acute kidney injury in the setting of CKD - resolved - Creatinine at 1.3 History of PE/DVT: - Venous Doppler: Negative -Currently on Coumadin Recheck INR tomorrow Type 2 diabetes: - Hemoglobin A1c at 7.4( 04/07/16) - Continued on home dose 70/30 - Insulin dosage will need adjusting in anticipation of elevated blood sugar secondary to prednisone Obstructive sleep apnea. -Continue CPAP History of pulmonary embolism/DVT-no DVT noted on ultrasound today - On Coumadin Please continue physical therapy Follow-up with PCP in about a week. May follow up with orthopedics in 3 months for repeat knee injections Total Time Spent: Greater than 30 minutes This includes examination of the patient, discharge planning, medication reconciliation, and communication with other providers. (Valentina Pruett MD) Discharge Instructions Please refer to the electronic Patient Visit Report (Discharge Instructions) for additional information. (Valentina Pruett MD) Follow-Up Follow-up with PCP in one week May follow up with orthopedics in 3 months for repeat knee injections (Valentina Pruett MD) Additional Copies To Chidi Du M.D.; Porfirio Tristan M.D. Resident Tracking Resident Involvement: Resident Care Provided Care Provided: Adult [facility] (Valentina Pruett MD) Reviewed: Pt Seen/Exam by Me (Dayana Levi MD) History Resident Physician Supervision Note: I interviewed and examined the patient. Discussed with Dr. Pruett and agree with findings and plan as documented in the note. Any exceptions or clarifications are listed here: Much improved and was able to walk around his room for the first time he says in months. He is said to be leaving the hospital as he really enjoyed the physical therapy he was getting here. Reyes catheter removed and he passed a voiding trial. Tele and vitals reviewed Obese, NAD irreg irreg,1/6 COLBY RUSB Clear to auscultation bilaterally, breathing unlabored Abd +BS soft NT with mild distension Ext left leg anterior tibia with ecchymosis and small 2 cm clear fluid filled blister, right knee with mild effusion, no erythema or heat -Orthopedics performed steroid injection in knee for acute gout, will give prednisone burst upon discharge for 5 days to help with other joint pains likely secondary to gout arthritis -continue allopurinol for prevention and watch for flare of gout -continue PT/OT at nursing home facility -Disagree with above, he does not have Abdominal dysfunction, he had ambulatory dysfunction Demand ischemia with peak trop 2.3--> trended downward, heparin gtt for bridging was given and then discontinued as he is back to therapeutic INR (for PAF and h/o DVT/PE), continue Coumadin and monitor INR in 1 day -Stable for [facility] to [facility] Documented By: Dayana Levi (Dayana Levi MD)
[2016-06-22 17:45] VITALS: BP 118/71; PULSE 62; TEMP 36.5; O2SAT 96
[2016-06-22] MEDS ORDERED: INSULIN GLARGINE SOLOSTAR 100 UNITS/ML 3 ML PEN SC SCH (21:00)
[2016-06-30] MEDS ORDERED: MULT-506 PO (17:58)
[2016-07-01] MEDS ORDERED: HYDR-5688 PO (15:30)
[2016-07-12] MEDS ORDERED: CHOL100010 IM (08:16)
[2016-07-12] MEDS ORDERED: NVLGI7030 SC (08:17)
[2016-07-14] MEDS ORDERED: CIPR250T3 PO (13:32)
[2016-07-14] MEDS ORDERED: DOXY100C76 PO (13:32)
[2016-07-22] MEDS ORDERED: NUTRMIS PO (09:48)
[2016-07-22] MEDS ORDERED: LPR25 PO (09:48)
[2016-07-22] MEDS ORDERED: HYDR-5688 PO (09:48)
[2016-07-22] MEDS ORDERED: TRAM-10 PO (09:48)
[2016-07-22] MEDS ORDERED: CMD5 PO (09:48)
[2016-07-22] MEDS ORDERED: PRED-301 PO (09:48)
[2016-07-22] MEDS ORDERED: LCTX PO (09:48)
[2016-07-22] MEDS ORDERED: NUTR-1049 PO (09:48)
[2016-07-22] MEDS ORDERED: LSN20 PO (09:48)
[2016-07-22] MEDS ORDERED: VNTHFA/IN INH (09:48)
[2016-07-22] MEDS ORDERED: ASPEC81 PO (09:55)
[2016-08-22] MEDS ORDERED: SULF800T23 PO (08:30)
[2016-09-27] MEDS ORDERED: NVLGI7030 SC (08:17)
[2016-09-27] MEDS ORDERED: FRS/40 PO (11:38)
[2016-09-27] MEDS ORDERED: NTRGSL/4 UT (11:38)
[2016-09-27] MEDS ORDERED: PRLSR20 PO (11:38)
[2016-11-03] MEDS ORDERED: CLIN300C10 (14:29)
[2016-11-03] MEDS ORDERED: CLIN150C15 PO (14:29)
[2016-12-25] MEDS ORDERED: IMDSR60 PO (08:35)
[2016-12-25] MEDS ORDERED: TPRSR50 PO (08:35)
[2017-01-04] MEDS ORDERED: CEFD300C2 PO (10:40)
[2017-01-04] MEDS ORDERED: SULF800T23 PO (10:40)
== END 2016-06-22 18:15 | DRG 689 ==
LOC: ENRESERVTM → ENRESERVDT → EDBD 14:31 → C.EDC 14:33 → C.4E 18:36 → C.2T 06-18 03:51
PROVIDERS: ADMIT Family Medicine; ATTEND Family Medicine
DX: N39.0 Urinary tract infection, site not specified (principal); I50.23 Acute on chronic systolic (congestive) heart failure; G93.41 Metabolic encephalopathy; N18.4 Chronic kidney disease, stage 4 (severe); I12.9 Hypertensive chronic kidney disease with stage 1 through stage 4 chronic kidney disease, or unspecified chronic kidney disease; E11.9 Type 2 diabetes mellitus without complications; E78.5 Hyperlipidemia, unspecified; Z96.653 Presence of artificial knee joint, bilateral; D64.9 Anemia, unspecified; K21.9 Gastro-esophageal reflux disease without esophagitis; M19.90 Unspecified osteoarthritis, unspecified site; R19.7 Diarrhea, unspecified; G47.33 Obstructive sleep apnea (adult) (pediatric); K22.70 Barrett's esophagus without dysplasia; I44.7 Left bundle-branch block, unspecified; M10.9 Gout, unspecified; I48.2 Chronic atrial fibrillation; Z79.82 Long term (current) use of aspirin; Z79.4 Long term (current) use of insulin; Z86.711 Personal history of pulmonary embolism; Z79.01 Long term (current) use of anticoagulants; Z95.1 Presence of aortocoronary bypass graft

== ENCOUNTER 2016-06-30 16:49 | Inpatient (IN) | payer OTHER ==
[~2016-06-30] VITALS: Ht 190.5 cm; Wt 125.2 kg
[~2016-06-30 16:49] MED LIST changes: -ACET325T96 PO; -ALLO100T PO; -ALLO300T2 PO; -AMLO-110 PO; -ASCA500 PO; -ASPEC81 PO; -CARV12.5 PO; -CEFD300C2 PO; -CHOL100010 IM; -CIPR1TAB11 PO; -CIPR250T3 PO; -CLIN150C15 PO; -CLIN300C10; -CMD10 PO; -CMD5 PO; -CRG125 PO; -CRS/10 PO; -CYCL10TA6 PO; -DOXY100C76 PO; -ERGO1TAB12 PO; -FRS/40 PO; -FURO40TA3 PO; -GABA-112 PO; -HYDR-5688 PO; -IMDSR60 PO; -LCTX PO; -LISI-725 PO; -LPR25 PO; -LSN20 PO; -LSX80 PO; -MIRT15TA2 PO; -MULT-506 PO; -MULTTAB PO; -NRN100 PO; -NTRGSL/4 UT; -NUTR-1049 PO; -NUTRMIS PO; -POTA20TA16 PO; -PRED-301 PO; -PRLSR20 PO; -PROTEIN LIQUID PO; -SENN-65 PO; -SULF800T23 PO; -TPRSR50 PO; -TRAM-10 PO; -VNTHFA/IN INH; -WARF-237 PO
[2016-06-30 17:31] LABS: BASO % 0.1 %; BASO ABS # 0.01 K/uL (0-0.2); COMPLETE YES; EOS % 4.3 %; IG% 0.8 %; LYMPH % 14.2 %; LYMPH ABS # 1.64 K/uL (1.2-3.4); MEAN CELL VOLUME 88.6 fL (80-100); MEAN CORPUSCULAR HEMOGLOBIN 27.7 pg (25-34); MEAN CORPUSCULAR HGB CONC 31.3 g/dl (32-36); MEAN PLATELET VOLUME 8.6 fL (7.4-10.4); MONO % 5.8 %; NEUT % 74.8 %; PLATELET COUNT 232 K/uL (130-400); RED BLOOD COUNT 3.61 M/uL (4.7-6.1); WHITE BLOOD COUNT 11.52 K/uL (4.8-10.8)
[2016-06-30 17:51] LABS: CALCIUM 8.1 mg/dl (8.5-10.1); CREATININE 2.6 mg/dl (0.60-1.40); POTASSIUM 4.6 mmol/L (3.5-5.1)
[2016-06-30] MEDS ORDERED: ALLO100T PO (17:57)
[2016-06-30] MEDS ORDERED: MULT-506 PO ×2 (17:58)
[2016-06-30] MEDS ORDERED: ONDANSETRON INJ 2 MG/ML 2 ML VIAL IV STA (18:13)
[2016-06-30] MEDS ORDERED: SODIUM CHLORIDE 0.9% 1000ML 1,000 ML IV STA ×2 (18:13→18:25)
[2016-06-30] MEDS ORDERED: DEXTROSE 50% 50 ML SYR IV ONE (19:15)
[2016-06-30] MEDS ORDERED: DEXTROSE 50% 50 ML SYR ONE (19:26)
[2016-06-30 19:28] LABS: PARTIAL THROMBOPLASTIN RATIO 1.5; PROTHROMBIN TIME (PATIENT) 33.2 SECONDS (9.0-12.0)
[2016-06-30 19:29] LABS: URINE APPEARANCE CLEAR (CLEAR); URINE BILIRUBIN NEG (NEG); URINE COLOR YELLOW; URINE NITRITE NEG (NEG); URINE SPECIFIC GRAVITY 1.012 (1.000-1.030); UROBILINOGEN NEG (NEG); ZZUR CULT IF INDIC CLEAN CATCH NO
[2016-06-30 19:38] LABS: MANUAL MICROSCOPIC REQUIRED? NO; REVIEW REQ? NO
[2016-06-30] MEDS ORDERED: GLUCAGON FOR INJ 1 MG VIAL SQ PRN (19:45)
[2016-06-30] MEDS ORDERED: DEXTROSE 50% 50 ML SYR IV PRN (19:45)
[2016-06-30] MEDS ORDERED: PROMETHAZINE HCL INJ 12.5 MG in SODIUM CHLORIDE 0.9% 50ML 50 ML IV PRN (19:45)
[2016-06-30] MEDS ORDERED: MIRTAZAPINE TAB 15 MG TAB PO PRN (19:45)
[2016-06-30] MEDS ORDERED: GLUCOSE 10 TABS/TUBE PO PRN (19:45)
[2016-06-30] MEDS ORDERED: GLUCOSE 40% GEL 15 GM TUBE PO PRN (19:45)
[2016-06-30] MEDS ORDERED: TRAMADOL HCL 50 MG TAB PO PRN (19:45)
[2016-06-30] MEDS ORDERED: HYDROmorphone INJ 1 MG/ML SYR IV PRN (19:45)
[2016-06-30] MEDS ORDERED: ONDANSETRON INJ 2 MG/ML 2 ML VIAL IV PRN (19:45)
--- NOTE | 2016-06-30 20:06 | DIAGNOSTIC IMAGING REPORT ---
CHEST ONE VIEW PORTABLE CLINICAL HISTORY: perry leg swelling pain. Edema. COMPARISON STUDY: 06/17/2016 FINDINGS: Subtle progressive increase in density left hemithorax as compared to the right. Persisting cardiomegaly. Components of congestive heart failure. IMPRESSION: Congestive heart failure with a slightly progressive degree of atelectasis versus effusion left base. Electronically signed by: Andrew Cherry M.D. 06/30/2016 8:05 PM Dictated Date/Time: 06/30/2016 8:04 PM
[2016-06-30 20:26] VITALS: BP 122/66; PULSE 65; TEMP 36.5; BMI 34.5
--- NOTE | 2016-06-30 20:36 | EMERGENCY ROOM VISIT NOTE ---
History Report prepared by Mick: Cassia Landers Under the Supervision of: Joe LeosO. First contact with patient: 17:03 Chief Complaint: ILLNESS Stated Complaint: ILLNESS History of Present Illness The patient is an 80 year old male who presents to the Emergency Room via ALS from [facility] with complaints of a persistent illness that began two weeks ago. The patient states that for the past two weeks he has had diarrhea, but states that his diarrhea stopped today. He additionally associates nausea and vomiting with his symptoms. The patient notes that he has had a decrease in appetite. Nursing staff reports that the patient has three wounds on his bottom. They additionally note that the patient had abnormal labs drawn today, noting a Creatinine of 2.7. The patient notes that he is on Coumadin and has a history of a previous open heart surgery. Pt denies headache, change in vision , fevers, chest pain, shortness of breath, abdominal pain, pain with urination, and melena. Source of History: patient Onset: two weeks ago Position: other (global) Quality: other (illness) Timing: other (persistent) Associated Symptoms: + nausea, + vomiting Note: Associated Symptoms: decrease in appetite. Review of Systems See HPI for pertinent positives & negatives. A total of 10 systems reviewed and were otherwise negative. Past Medical & Surgical Medical Problems: (1) Ambulatory dysfunction (2) ARF (acute renal failure) (3) Atrial fibrillation (4) Benign hypertension (5) Calculus of kidney and ureter (6) Chest pain (7) Coronary artery bypass grafting (8) Deep venous thrombosis (9) Diabetes mellitus (10) Hiatal hernia with gastroesophageal reflux disease (11) History of - pulmonary embolus (12) History of adenomatous polyp of colon (13) Hyperlipidemia (14) Lower extremity edema (15) Pulmonary embolism (16) Replacement of total knee joint Family History No pertinent family history Social History Smoking Status: Never Smoker Marital Status: Housing Status: lives alone Occupation Status: retired Current/Historical Medications Scheduled Allopurinol (Zyloprim), 200 MG PO DAILY Amoxicillin (Amoxicillin), 500 MG PO TID Ascorbic Acid (Vitamin C), 500 MG PO BID Aspirin (Aspirin Chewable), 81 MG PO QAM Atorvastatin (Lipitor), 80 MG PO QPM Carvedilol (Coreg), 12.5 MG PO BID Ergocalciferol (Vitamin D), 50,000 INTER.UNIT PO MONTHLY Furosemide (Lasix), 40 MG PO QPM Furosemide (Lasix), 80 MG PO QAM Insulin Aspart 70/30 (Novolog Mix 70/30), 55 UNITS SC BID Lisinopril (Zestril), 40 MG PO QAM Mirtazapine (Remeron), 15 MG PO HS Multivitamin (Multivitamin), 1 TAB PO DAILY Omeprazole (Prilosec), 20 MG PO BID Potassium Chloride (Klor-Con M20), 40 MEQ PO QAM Sennosides-Docusate Sodium (Senokot S), 1 TAB PO QAM Sucralfate (Carafate), 1 GM PO QID Trazodone Hcl (Trazodone), 50 MG PO HS Warfarin Sodium (Coumadin), 10 MG PO QPM Scheduled PRN Miconazole Nitrate (Desenex Shake Powder), 1 APPLN EXT PRN PRN for Affected Skin Folds Nitroglycerin (Nitrostat), 0.4 MG UT PRN PRN for Chest Pain Tramadol HCl (Tramadol HCl), 50 MG PO Q6H PRN for Pain Allergies Coded Allergies: NO KNOWN DRUG ALLERGIES (Verified Allergy, Unknown, ., 06/30/16) Physical Exam Vital Signs Date Time Temp Pulse Resp B/P Pulse Ox O2 Delivery O2 Flow Rate FiO2 06/30/16 19:19 65 18 122/66 97 Room Air 06/30/16 18:03 67 16 94/54 97 Room Air 06/30/16 17:02 73 06/30/16 16:53 36.5 71 16 103/58 98 Room Air Physical Exam GENERAL: Sitting up in bed, chronically ill appearing, disheveled, alert, well nourished, no distress, non-toxic EYE EXAM: normal conjunctiva. OROPHARYNX: no exudate, no erythema, lips, buccal mucosa, and tongue normal and mucous membranes are moist NECK: supple, no nuchal rigidity, no adenopathy, non-tender LUNGS: Clear to auscultation. Normal chest wall mechanics HEART: Irregularly, irregular. ABDOMEN: abdomen soft, non-tender, normo-active bowel sounds, no masses, no rebound or guarding. BACK: Back is symmetrical on inspection and there is no deformity, no midline tenderness, no CVA tenderness. : Normal external male genitalia. SKIN: no rashes and no bruising UPPER EXTREMITIES: upper extremities are grossly normal. LOWER EXTREMITIES: Pitting edema bilaterally. NEURO EXAM: Normal sensorium, cranial nerves II-XII grossly intact, normal speech, no gross weakness of arms, no gross weakness of legs. Medical Decision & Procedures Laboratory Results 06/30/16 17:20 Red Blood Count 3.61, Mean Corpuscular Volume 88.6, Mean Corpuscular Hemoglobin 27.7, Mean Corpuscular Hemoglobin Concent 31.3, Mean Platelet Volume 8.6, Neutrophils (%) (Auto) 74.8, Lymphocytes (%) (Auto) 14.2, Monocytes (%) (Auto) 5.8, Eosinophils (%) (Auto) 4.3, Basophils (%) (Auto) 0.1, Neutrophils # (Auto) 8.62, Lymphocytes # (Auto) 1.64, Monocytes # (Auto) 0.67, Eosinophils # (Auto) 0.49, Basophils # (Auto) 0.01 06/30/16 17:20 Test 06/30/16 17:20 06/30/16 19:15 06/30/16 20:04 White Blood Count 11.52 K/uL (4.8-10.8) Red Blood Count 3.61 M/uL (4.7-6.1) Hemoglobin 10.0 g/dL (14.0-18.0) Hematocrit 32.0 % (42-52) Mean Corpuscular Volume 88.6 fL (80-100) Mean Corpuscular Hemoglobin 27.7 pg (25-34) Mean Corpuscular Hemoglobin Concent 31.3 g/dl (32-36) Platelet Count 232 K/uL (130-400) Mean Platelet Volume 8.6 fL (7.4-10.4) Neutrophils (%) (Auto) 74.8 % Lymphocytes (%) (Auto) 14.2 % Monocytes (%) (Auto) 5.8 % Eosinophils (%) (Auto) 4.3 % Basophils (%) (Auto) 0.1 % Neutrophils # (Auto) 8.62 K/uL (1.4-6.5) Lymphocytes # (Auto) 1.64 K/uL (1.2-3.4) Monocytes # (Auto) 0.67 K/uL (0.11-0.59) Eosinophils # (Auto) 0.49 K/uL (0-0.5) Basophils # (Auto) 0.01 K/uL (0-0.2) RDW Standard Deviation 57.0 fL (36.4-46.3) RDW Coefficient of Variation 17.8 % (11.5-14.5) Immature Granulocyte % (Auto) 0.8 % Immature Granulocyte # (Auto) 0.09 K/uL (0.00-0.02) Prothrombin Time 33.2 SECONDS (9.0-12.0) Prothromb Time International Ratio 3.0 (0.9-1.1) Activated Partial Thromboplast Time 38.6 SECONDS (21.0-31.0) Partial Thromboplastin Ratio 1.5 Anion Gap 8.0 mmol/L (3-11) Est Creatinine Clear Calc Drug Dose 32.3 ml/min Estimated GFR () 25.8 Estimated GFR (Non- 22.3 BUN/Creatinine Ratio 27.0 (10-20) Calcium Level 8.1 mg/dl (8.5-10.1) Magnesium Level 2.3 mg/dl (1.8-2.4) Total Bilirubin 0.5 mg/dl (0.2-1) Direct Bilirubin 0.1 mg/dl (0-0.2) Aspartate Amino Transf (AST/SGOT) 15 U/L (15-37) Alanine Aminotransferase (ALT/SGPT) 32 U/L (12-78) Alkaline Phosphatase 104 U/L (45-117) Total Protein 6.3 gm/dl (6.4-8.2) Albumin 2.5 gm/dl (3.4-5.0) Lipase 385 U/L (73-393) Urine Color YELLOW Urine Appearance CLEAR (CLEAR) Urine pH 5.0 (4.5-7.5) Urine Specific [place] 1.012 (1.000-1.030) Urine Protein NEG (NEG) Urine Glucose (UA) NEG (NEG) Urine Ketones NEG (NEG) Urine Occult Blood NEG (NEG) Urine Nitrite NEG (NEG) Urine Bilirubin NEG (NEG) Urine Urobilinogen NEG (NEG) Urine Leukocyte Esterase TRACE (NEG) Urine WBC (Auto) 1-5 /hpf (0-5) Urine RBC (Auto) 0-4 /hpf (0-4) Urine Hyaline Casts (Auto) 1-5 /lpf (0-5) Urine Epithelial Cells (Auto) 10-20 /lpf (0-5) Urine Bacteria (Auto) NEG (NEG) Lactic Acid Level 1.0 mmol/L (0.4-2.0) Laboratory results per my review. Medications Administered Medications (Trade) Dose Ordered Sig/Aileen Route Start Time Stop Time Status Last Admin Dose Admin Sodium Chloride (Nss 1000ml) 1,000 ml @ 999 mls/hr Q1H1M STAT IV 06/30/16 18:13 06/30/16 19:13 DC 06/30/16 18:34 999 MLS/HR Ondansetron HCl 4 mg 4 mg NOW STAT IV 06/30/16 18:13 06/30/16 18:14 DC 06/30/16 18:34 4 MG Sodium Chloride (Nss 1000ml) 1,000 ml @ 999 mls/hr Q1H1M STAT IV 06/30/16 18:25 06/30/16 19:25 DC 06/30/16 18:35 999 MLS/HR Dextrose (Dextrose 50% 50ML Syringe) 50 ml STK-MED ONCE .ROUTE 06/30/16 19:26 06/30/16 19:27 DC 06/30/16 19:36 50 ML ECG Indication: nausea Rate (beats per minute): 69 Rhythm: atrial fibrillation Findings: Q waves (Inferior), no ectopy, other (ST wave flattening laterally) ED Course ED COURSE: Vital signs were reviewed and showed hypotensive The patients medical record was reviewed The above diagnostic studies were performed and reviewed. ED treatments and interventions as stated above. 1709: The patient was evaluated in room B3B. A complete history and physical examination was performed. 1813: Ordered Zofran Inj 4 mg IV, Sodium Chloride 1000 ml @ 999 mls/hr IV. 1825: Ordered Sodium Chloride 1000 ml @ 999 mls/hr IV. 1827: Upon reevaluation, the patient is resting comfortably.I discussed my findings with the patient and he understands and agrees with the treatment plan. Based on the patients age, coexisting illnesses, exam and lab findings the decision to treat as an inpatient was made. The patient remained stable while under my care. The patient will be evaluated for further management. 1830: I discussed the patients case with Munir Blanco PA-C. She is going to evaluate the patient for further treatment. Medical Decision Differential diagnoses includes but is not limited to gastritis, peptic ulcer disease, GERD, gallbladder disease, pancreatitis, small bowel obstruction, acute coronary syndrome, pericarditis, ischemic bowel, irritable bowel disease, irritable bowel syndrome, appendicitis, diverticulitis, malignancy, hernia, urinary tract infection, torsion, perforation, trauma, infectious. Patient is an 80-year-old male that presents the ER referred in from the correction for acute kidney injury. He previously had nausea vomiting diarrhea. His vomiting resolved yesterday and diarrhea has almost completed subsided today. He does have a recent admission for CHF. Labs show a hemoglobin of 10. White count 11.5., Creatinine of 2.7 along with an elevated BUNs supporting dehydration. Previous creatinines are 1.3. Bilirubin along with LFTs and lipase are normal. Abdominal exam was benign. He was given 1.5 L normal saline admitted to internal medicine for YAMEL. INR was 3.0. UA was negative. Consults Time Called: 1824 Consulting Physician: Munir Blanco PA-C Returned Call: 1830 I discussed the patients case with Munir Blanco PA-C. She is going to evaluate the patient for further treatment. Impression Primary Impression: Acute kidney injury Scribe Attestation The scribe's documentation has been prepared under my direction and personally reviewed by me in its entirety. I confirm that the note above accurately reflects all work, treatment, procedures, and medical decision making performed by me. Departure Information Dispostion Being Evaluated By Hospitalist Referrals [facility] (PCP)
[2016-06-30] MEDS ORDERED: ALBUMIN HUMAN 25% 12.5 GM/50 ML VIAL IV ONE (21:00)
[2016-06-30] MEDS ORDERED: INSULIN ASPART 100 UNITS/ML 3 ML PEN SC SCH (21:00)
[2016-06-30 21:01] VITALS: BP 137/73; PULSE 65; TEMP 36.6; O2SAT 96
--- NOTE | 2016-06-30 21:19 | HISTORY & PHYSICAL EXAMINATION ---
DATE OF ADMISSION: 06/30/2016 PRIMARY CARE PHYSICIAN: Dr. Ryder. Patient currently undergoing rehabilitation at [facility]. CHIEF COMPLAINT: Abnormal labs HISTORY OF PRESENT ILLNESS: History obtained from patient and medical records. MHx significant for chronic systolic heart failure secondary to ischemic cardiomyopathy, EF of 45%, CAD status post CABG, hypertension, hyperlipidemia, aFib on anticoagulation, DM2, insulin requiring, CRI (baseline crea 1.3-1.5), chronic anemia ( baseline hemoglobin of 8-9), sleep apnea as per records, Recent confinement about 2 weeks ago for change in mental status, attributed to ARF. Patient also found to have Enterococcus UTI. Discharged on Amoxicillin. Patient also right knee pain at that time attributed to gout, started on prednisone. In the last week, patient has been having nausea, vomiting; diarrhea sx, nonbloody, 4 times a day. No unusual abdominal discomfort, no chest pain, no shortness of breath. appetite not too good. no fever, no chills. Bilateral leg swelling. PX seen by [facility] physician in the morning. Outpatient lab work showed creatinine at 2.4. Patient sent to the Emergency Room and received IV fluids. MEDICAL HISTORY: As above. SURGICAL HISTORY: He had orthopedic procedures, CABG, urologic procedures. HOME MEDICATIONS: Include Zyloprim, vitamin C, Lipitor, Coreg, vitamin B, Lasix, lisinopril, Remeron, multivitamins, Nitrostat, Prilosec, Carafate, and Coumadin. ALLERGIES: No known drug allergies. FAMILY HISTORY: No history of heart disease, DM as per patient. PERSONAL AND SOCIAL HISTORY: Nonsmoker, no chronic intake of alcohol. Retired businessman. REVIEW OF SYSTEMS: As per HPI, all other ROS negative. PHYSICAL EXAMINATION: VITAL SIGNS: Today - blood pressure was noted to be 103/52, pulse rate 71, RR 16, temperature 36.6, sats 98RA GENERAL: Obese, no respiratory distress. SKIN: pallor. HEENT: pale palp, conjunctivae, dry mucosa. NECK: Short neck. LUNGS: Decreased breath sounds. HEART: irreg ABDOMEN: Some distention, NT EXTREMITIES: Bilateral lower extremity edema noted, no tenderness NEUROLOGIC: No gross focality. LABORATORY AND IMAGING DATA: Hemoglobin was noted to be 10, hematocrit 32, white blood cells 11.2, platelets 232. Sodium 140 potassium 4.6, chloride 103, CO2 26, BUN 76, creatinine 2.6, glucose of 66. INR was noted to be 3. Hemoglobin A1c from March 2016 was 7.4. UA - trace wbc esterase positive. EKG as per my interpretation : rate of 70, aFib, with old infarct in the inferior leads. ASSESSMENT: 1. Acute renal failure on chronic renal insufficiency multifactorial : laxative induced diarrhea rule out Clostridium difficile. No sepsis. (recent Enterococcal UTI sp Amox tx) medications 2. Chronic systolic heart failure secondary to ischemic cardiomyopathy (ejection fraction of 45%) The patient on the dry side. 3. Coronary artery disease status post coronary artery bypass grafting. 4. Hypertension, blood pressure in the lower side 5. AFib, rate controlled. INR therapeutic. 6. DM type 2, insulin requiring, reasonable control as of recent HgA1c. px hypoglycemic in the ER 7. Chronic anemia 2 to CKD, hemoglobin is better than baseline, poss hemoconcentration PLAN: GMF baseline CXR to determine vol status w. complaints of perry leg swelling Monitor creatinine response to IVF bolus given in the ER appropriate to hold home ACEI, diuretics for now until crea at baseline Nephrology consult. RE ARF on CRI failure (patient known to Dr. Cortez) appropriate to decrease basal insulin w/ hypoglycemic episodes may need to hold basal insulin if w/ recurrent hypoglycemia ISS BG goal 140-180 stool cdif, dc laxatives DVT prophylaxis, Coumadin, INR 2-3. Full code. MTDD
[2016-06-30] MEDS: CARVEDILOL 3.125 MG TAB PO SCH (23:03)
[2016-06-30] MEDS: ATORVASTATIN 40 MG TAB PO SCH (23:03)
[2016-06-30] MEDS: PANTOprazole SOD 40 MG TAB PO SCH (23:04)
[2016-06-30] MEDS: TRAZODONE HCL 50 MG TAB PO SCH (23:04)
[2016-06-30] MEDS ORDERED: ALBUMIN HUMAN 25% 12.5 GM/50 ML VIAL IV STA (23:17)
[2016-06-30 23:53] VITALS: O2SAT 96
[2016-06-30] MEDS: ACETAMINOPHEN 325 MG TAB PO PRN (23:54)
[2016-07-01] VITALS (8 sets, daily range): BP systolic 105–151; BP diastolic 59–77; PULSE 62–90; TEMP 36.4–36.8; O2SAT 95–97; BMI 34.5
[2016-07-01 07:00] LABS: COMPLETE YES; EOS % 4.8 %; HEMATOCRIT 27.6 % (42-52); IG% 0.4 %; LYMPH % 18.2 %; MEAN CELL VOLUME 88.5 fL (80-100); MEAN CORPUSCULAR HEMOGLOBIN 28.8 pg (25-34); MEAN CORPUSCULAR HGB CONC 32.6 g/dl (32-36); MEAN PLATELET VOLUME 8.9 fL (7.4-10.4); MONO % 7.7 %; NEUT % 68.9 %; PLATELET COUNT 176 K/uL (130-400); RED BLOOD COUNT 3.12 M/uL (4.7-6.1); WHITE BLOOD COUNT 7.68 K/uL (4.8-10.8)
[2016-07-01 07:07] LABS: INR 2.9 (0.9-1.1); PROTHROMBIN TIME (PATIENT) 32.4 SECONDS (9.0-12.0)
[2016-07-01 07:28] LABS: CALCIUM 7.9 mg/dl (8.5-10.1); POTASSIUM 4.3 mmol/L (3.5-5.1)
--- NOTE | 2016-07-01 07:53 | NEPHROLOGY CONSULTATION ---
DATE OF CONSULTATION: 07/01/2016 DATE OF CONSULTATION: 07/01/2016. ATTENDING OF RECORD: Dr. Akers. REASON FOR CONSULTATION: YAMEL and worsening lower extremity edema. HISTORY OF PRESENT ILLNESS: This is an 80-year-old male who I saw for initial visit in April of this year for CKD stage III-IV with diabetes for about 15 years and hypertension for many years as well. He was evaluated by my partners in 2007 for stones and CKD and has had stones in the past requiring lithotripsy. Does have severe osteoarthritis and ambulatory dysfunction and uses a walker, has atrial fibrillation on anticoagulation as well as bypass surgery x5 in [address] Glover. No tobacco. The patient has lost 66 pounds secondary to decreased appetite. At the time that I saw the patient the creatinine had varied quite significantly from 1.8-3.1. There was no protein in the urine and attributed underlying CKD from diabetes, hypertension and advanced age, but thankfully no tobacco, no NSAIDs. Both the diabetes and blood pressure were well controlled. We adjusted the blood pressure medications. We screened the patient for myeloma which was negative; however albumin levels were noted to be low. We are encouraging nutritional supplementation to help raise protein levels. Renal ultrasound was done which showed good kidney sizes although signs of medical renal disease as well as nonobstructing kidney stones with decreased cortex and increased echogenicity. The patient was just recently in the hospital for altered mental status and found to have enterococcus UTI and was discharged on amoxicillin. The patient also had a gout flareup and was started on prednisone. The patient has had some nausea, vomiting, and diarrhea 4 times a day for the past week and outpatient lab work showed a creatinine up to 2.4. Given the fact that the patient had edema in lower extremities and worsening kidney function was brought in to the Emergency Room and was subsequently admitted. Given the diarrhea they are ruling out Clostridium difficile. The patient did receive a fluid bolus in the ER and the morning labs are pending. REVIEW OF SYSTEMS: Decreased appetite, nausea, vomiting, diarrhea. No fevers or chills. No rash or itching. No dysuria or hematuria. No shortness of breath or chest pain. Does have ambulatory dysfunction. All other review of systems otherwise negative. PAST MEDICAL HISTORY: Ischemic cardiomyopathy with CABG x5, atrial fibrillation, diabetes, hypertension, chronic anemia, sleep apnea, CKD stage III-IV with a creatinine that varies quite considerably. PAST SURGICAL HISTORY: Bypass surgery and orthopedic surgeries. FAMILY HISTORY: No renal disease in family. SOCIAL HISTORY: No smoking, no alcohol, no drugs. CURRENT MEDICATIONS: Allopurinol 200 mg daily, aspirin 81 mg daily, multivitamin daily, Lipitor 80 mg daily, Coreg 3.125 mg p.o. b.i.d., Carafate 1 gram p.o. 4 times a day, Protonix 40 mg p.o. b.i.d., Trazodone 25 mg at night. PHYSICAL EXAMINATION: VITAL SIGNS: Temperature 36.6, pulse 71, respiratory rate 18, blood pressure 151/74, satting 97% on room air. GENERAL: Awake, alert, oriented x3. EYES: No scleral icterus. EARS, NOSE, THROAT: Moist mucous membranes. NECK: Supple. PULMONARY: Clear to auscultation. CARDIAC: Irregular, irregular. ABDOMEN: Bowel sounds positive, soft, nontender. EXTREMITIES: +1 to 2 pitting edema. NEUROLOGICALLY: Nonfocal. DERMATOLOGIC: No rash or ulcers noted. LABORATORIES: Pending for this morning. Sodium level 139, potassium 4.6, chloride is 105, bicarbonate is 26, BUN 70, creatinine is 2.6, glucose is 63, calcium is 8.1, mag is 2.3, albumin 2.5 on admission. White count is 11, H\T\H 10 and 32, platelet count is 232. INR is 3 and UA with pH of 5, specific gravity 1.012, 1-5 WBCs, 0-4 RBCs. Chest x-ray shows congestive heart failure with slightly progressive degree of atelectasis versus effusion of the left base. ASSESSMENT AND PLAN: 1. Acute kidney injury, nonoliguric in the setting of recent urinary tract infection as well as recent diarrhea with nausea and vomiting. Has signs of congestive heart failure on chest x-ray as well as edema in the lower extremities. Albumin levels are low and I feel the patient may be third spacing fluid. Did receive IV fluid bolus last night. Labs are pending for this morning. Would hold on further IV fluids and give albumin to try to help mobilize this third space fluid and follow kidney function trend. 2. Anemia. The patient's hemoglobin levels have been low and in the setting of low albumin and significant weight loss, this is quite concerning. I did screen the patient for myeloma as an outpatient which was negative. Will continue to follow the trends. Personally feel the patient may have an element of intravascular volume depletion since the hemoglobin levels are better in the hospital compared to as an outpatient. MTDD
[2016-07-01] MEDS ORDERED: INSULIN GLARGINE SOLOSTAR 100 UNITS/ML 3 ML PEN SC SCH ×2 (08:00→22:00)
[2016-07-01] MEDS: ASPIRIN 81 MG CHEW PO SCH (08:55)
[2016-07-01] MEDS: ALLOPURINOL 100 MG TAB PO SCH (08:55)
[2016-07-01] MEDS: SUCRALFATE 1 GM TAB PO SCH ×2 (08:55→12:03)
[2016-07-01] MEDS: PANTOprazole SOD 40 MG TAB PO SCH ×2 (08:56→21:31)
[2016-07-01] MEDS: MULTIVITAMIN TAB PO SCH (08:56)
[2016-07-01] MEDS: CARVEDILOL 3.125 MG TAB PO SCH ×2 (08:56→21:31)
[2016-07-01] MEDS: INSULIN ASPART 100 UNITS/ML 3 ML PEN SC SCH ×4 (08:57→21:40)
[2016-07-01] MEDS: ALBUMIN HUMAN 25% 12.5 GM/50 ML VIAL IV SCH ×2 (09:35→21:21)
[2016-07-01] MEDS ORDERED: OXYCODONE HCL IR 5 MG TAB (IMMEDIATE RELEASE) PO PRN (15:30)
[2016-07-01] MEDS ORDERED: HYDR-5688 PO ×2 (15:30)
--- NOTE | 2016-07-01 16:47 | Progress Note ---
Medicine Progress Note Date & Time of Visit: July 01, 2016 at 14:08. Subjective 80 yo M presents from [facility] with nausea, vomiting and diarrhea for the past week with YAMEL. Recently discharged one week ago after being admitted for heart failure exacerbation. -nausea, vomiting and diarrhea have resolved and he has tolerated lunch without issue -denies fevers -reports having chills for the past week -overall improved today -severe leg pain, cannot tell if this is chronic or acute. -pt reports taking Mcgill TID and hasn't had any Objective Last 8 Hrs Date Time Temp Pulse Resp B/P Pulse Ox O2 Delivery O2 Flow Rate FiO2 07/01/16 10:21 36.7 70 18 131/77 97 Room Air 07/01/16 09:35 36.4 62 18 105/59 96 Room Air 07/01/16 08:21 36.7 78 17 130/70 96 Room Air 07/01/16 07:45 96 Room Air Physical Exam: GEN: obese, in no acute distress unless I touch his legs, alert and appropriate HEENT: NC/AT, pupils are equal and round, normal sclerae, MMM CARDIO: reg rate, S1/2 heard without m/g/r, no JVD LUNGS: CTA bilaterally, no crackles, rales or wheezes, good diaphragmatic excursion ABD: soft, non-tender, non-distended, no rebound or guarding EXTREMITY: RP and DP palpable 2+ bilat, 2+ pitting edema bilaterally up to knees. Extremities are warm and well-perfused. LLE wtih a chronic patch of purple erythema on anterior lower leg that appears consistent with hemosiderin deposition. NEURO: CN 2-12 grossly intact MUSC: generalized weakness but no gross focal deficits. SKIN: warm and dry and as above. Laboratory Results: 07/01/16 06:42 Red Blood Count 3.12, Mean Corpuscular Volume 88.5, Mean Corpuscular Hemoglobin 28.8, Mean Corpuscular Hemoglobin Concent 32.6, Mean Platelet Volume 8.9, Neutrophils (%) (Auto) 68.9, Lymphocytes (%) (Auto) 18.2, Monocytes (%) (Auto) 7.7, Eosinophils (%) (Auto) 4.8, Basophils (%) (Auto) 0.0, Neutrophils # (Auto) 5.29, Lymphocytes # (Auto) 1.40, Monocytes # (Auto) 0.59, Eosinophils # (Auto) 0.37, Basophils # (Auto) 0.00 07/01/16 06:42 Test 06/30/16 17:20 06/30/16 19:15 06/30/16 20:04 07/01/16 06:42 Activated Partial Thromboplast Time 38.6 SECONDS (21.0-31.0) Partial Thromboplastin Ratio 1.5 Magnesium Level 2.3 mg/dl (1.8-2.4) Total Bilirubin 0.5 mg/dl (0.2-1) Direct Bilirubin 0.1 mg/dl (0-0.2) Aspartate Amino Transf (AST/SGOT) 15 U/L (15-37) Alanine Aminotransferase (ALT/SGPT) 32 U/L (12-78) Alkaline Phosphatase 104 U/L (45-117) Total Protein 6.3 gm/dl (6.4-8.2) Albumin 2.5 gm/dl (3.4-5.0) Lipase 385 U/L (73-393) Urine Color YELLOW Urine Appearance CLEAR (CLEAR) Urine pH 5.0 (4.5-7.5) Urine Specific [place] 1.012 (1.000-1.030) Urine Protein NEG (NEG) Urine Glucose (UA) NEG (NEG) Urine Ketones NEG (NEG) Urine Occult Blood NEG (NEG) Urine Nitrite NEG (NEG) Urine Bilirubin NEG (NEG) Urine Urobilinogen NEG (NEG) Urine Leukocyte Esterase TRACE (NEG) Urine WBC (Auto) 1-5 /hpf (0-5) Urine RBC (Auto) 0-4 /hpf (0-4) Urine Hyaline Casts (Auto) 1-5 /lpf (0-5) Urine Epithelial Cells (Auto) 10-20 /lpf (0-5) Urine Bacteria (Auto) NEG (NEG) Lactic Acid Level 1.0 mmol/L (0.4-2.0) White Blood Count 7.68 K/uL (4.8-10.8) Red Blood Count 3.12 M/uL (4.7-6.1) Hemoglobin 9.0 g/dL (14.0-18.0) Hematocrit 27.6 % (42-52) Mean Corpuscular Volume 88.5 fL (80-100) Mean Corpuscular Hemoglobin 28.8 pg (25-34) Mean Corpuscular Hemoglobin Concent 32.6 g/dl (32-36) Platelet Count 176 K/uL (130-400) Mean Platelet Volume 8.9 fL (7.4-10.4) Neutrophils (%) (Auto) 68.9 % Lymphocytes (%) (Auto) 18.2 % Monocytes (%) (Auto) 7.7 % Eosinophils (%) (Auto) 4.8 % Basophils (%) (Auto) 0.0 % Neutrophils # (Auto) 5.29 K/uL (1.4-6.5) Lymphocytes # (Auto) 1.40 K/uL (1.2-3.4) Monocytes # (Auto) 0.59 K/uL (0.11-0.59) Eosinophils # (Auto) 0.37 K/uL (0-0.5) Basophils # (Auto) 0.00 K/uL (0-0.2) RDW Standard Deviation 58.7 fL (36.4-46.3) RDW Coefficient of Variation 18.3 % (11.5-14.5) Immature Granulocyte % (Auto) 0.4 % Immature Granulocyte # (Auto) 0.03 K/uL (0.00-0.02) Prothrombin Time 32.4 SECONDS (9.0-12.0) Prothromb Time International Ratio 2.9 (0.9-1.1) Anion Gap 8.0 mmol/L (3-11) Est Creatinine Clear Calc Drug Dose 42.0 ml/min Estimated GFR () 35.5 Estimated GFR (Non- 30.6 BUN/Creatinine Ratio 28.0 (10-20) Calcium Level 7.9 mg/dl (8.5-10.1) Test 07/01/16 11:42 Bedside Glucose 113 mg/dl (70-99) Last 24 Hours Test 06/30/16 17:20 06/30/16 19:15 06/30/16 20:04 06/30/16 22:49 White Blood Count 11.52 K/uL Red Blood Count 3.61 M/uL Hemoglobin 10.0 g/dL Hematocrit 32.0 % Mean Corpuscular Volume 88.6 fL Mean Corpuscular Hemoglobin 27.7 pg Mean Corpuscular Hemoglobin Concent 31.3 g/dl Platelet Count 232 K/uL Mean Platelet Volume 8.6 fL Neutrophils (%) (Auto) 74.8 % Lymphocytes (%) (Auto) 14.2 % Monocytes (%) (Auto) 5.8 % Eosinophils (%) (Auto) 4.3 % Basophils (%) (Auto) 0.1 % Neutrophils # (Auto) 8.62 K/uL Lymphocytes # (Auto) 1.64 K/uL Monocytes # (Auto) 0.67 K/uL Eosinophils # (Auto) 0.49 K/uL Basophils # (Auto) 0.01 K/uL RDW Standard Deviation 57.0 fL RDW Coefficient of Variation 17.8 % Immature Granulocyte % (Auto) 0.8 % Immature Granulocyte # (Auto) 0.09 K/uL Prothrombin Time 33.2 SECONDS Prothromb Time International Ratio 3.0 Activated Partial Thromboplast Time 38.6 SECONDS Partial Thromboplastin Ratio 1.5 Sodium Level 139 mmol/L Potassium Level 4.6 mmol/L Chloride Level 105 mmol/L Carbon Dioxide Level 26 mmol/L Anion Gap 8.0 mmol/L Blood Urea Nitrogen 70 mg/dl Creatinine 2.60 mg/dl Est Creatinine Clear Calc Drug Dose 32.3 ml/min Estimated GFR () 25.8 Estimated GFR (Non- 22.3 BUN/Creatinine Ratio 27.0 Random Glucose 63 mg/dl Calcium Level 8.1 mg/dl Magnesium Level 2.3 mg/dl Total Bilirubin 0.5 mg/dl Direct Bilirubin 0.1 mg/dl Aspartate Amino Transf (AST/SGOT) 15 U/L Alanine Aminotransferase (ALT/SGPT) 32 U/L Alkaline Phosphatase 104 U/L Total Protein 6.3 gm/dl Albumin 2.5 gm/dl Lipase 385 U/L Urine Color YELLOW Urine Appearance CLEAR Urine pH 5.0 Urine Specific [place] 1.012 Urine Protein NEG Urine Glucose (UA) NEG Urine Ketones NEG Urine Occult Blood NEG Urine Nitrite NEG Urine Bilirubin NEG Urine Urobilinogen NEG Urine Leukocyte Esterase TRACE Urine WBC (Auto) 1-5 /hpf Urine RBC (Auto) 0-4 /hpf Urine Hyaline Casts (Auto) 1-5 /lpf Urine Epithelial Cells (Auto) 10-20 /lpf Urine Bacteria (Auto) NEG Lactic Acid Level 1.0 mmol/L Bedside Glucose 52 mg/dl Test 06/30/16 23:33 07/01/16 04:01 07/01/16 06:17 07/01/16 06:42 Bedside Glucose 75 mg/dl 65 mg/dl 71 mg/dl White Blood Count 7.68 K/uL Red Blood Count 3.12 M/uL Hemoglobin 9.0 g/dL Hematocrit 27.6 % Mean Corpuscular Volume 88.5 fL Mean Corpuscular Hemoglobin 28.8 pg Mean Corpuscular Hemoglobin Concent 32.6 g/dl Platelet Count 176 K/uL Mean Platelet Volume 8.9 fL Neutrophils (%) (Auto) 68.9 % Lymphocytes (%) (Auto) 18.2 % Monocytes (%) (Auto) 7.7 % Eosinophils (%) (Auto) 4.8 % Basophils (%) (Auto) 0.0 % Neutrophils # (Auto) 5.29 K/uL Lymphocytes # (Auto) 1.40 K/uL Monocytes # (Auto) 0.59 K/uL Eosinophils # (Auto) 0.37 K/uL Basophils # (Auto) 0.00 K/uL RDW Standard Deviation 58.7 fL RDW Coefficient of Variation 18.3 % Immature Granulocyte % (Auto) 0.4 % Immature Granulocyte # (Auto) 0.03 K/uL Prothrombin Time 32.4 SECONDS Prothromb Time International Ratio 2.9 Sodium Level 139 mmol/L Potassium Level 4.3 mmol/L Chloride Level 107 mmol/L Carbon Dioxide Level 24 mmol/L Anion Gap 8.0 mmol/L Blood Urea Nitrogen 56 mg/dl Creatinine 2.00 mg/dl Est Creatinine Clear Calc Drug Dose 42.0 ml/min Estimated GFR () 35.5 Estimated GFR (Non- 30.6 BUN/Creatinine Ratio 28.0 Random Glucose 76 mg/dl Calcium Level 7.9 mg/dl Test 07/01/16 07:52 07/01/16 11:42 Bedside Glucose 94 mg/dl 113 mg/dl Assessment & Plan 80 yo M presents from [facility] with nausea, vomiting and diarrhea for the past week with YAMEL. Recently discharged one week ago after being admitted for heart failure exacerbation. 1. Acute renal failure on chronic renal insufficiency 2/2 dehydration causing diarrhea. Volume status is difficult to determine in this patient, however, his lungs are clear and he has chronically edematous legs so appears hypo to euvolemic with a low effective arterial volume. Lasix was stopped on admission as well as Lisinopril. Albumin and IVF were given yesterday with some improvement in creat from 2.6 to 2.0 today (baseline 1.5). Per Nephro, will give some more albumin to him to help raise oncotic pressure in the intravascular space and decrease third spacing. Will also add TEDs +/- SCDs. Repeat PRP in am. It appears that the diarrhea and vomiting has not been ongoing today. 2. Gouty arthritis in R knee that is crystal-proven on last admission along with presumed gouty arthritis of the feet bilaterally. The patient cannot localize an area of pain in his legs and reports pain in calves, shins, ankles, knees and toes bilaterally. He has been reportedly ambulatory at [facility] over the past week so less concerned for DVT at this time, and the fact that he is tender all over with no evidence of thrombotic syndrome makes this less likely. Will check vit D level as patient has recently been on high dose supplementation, and low D can cause some pain like this. Pt received an intraarticular injection of steroids two weeks ago and was sent home on a 5 day prednisone burst. There is no evidence of a gout attack at this time (i.e-no swollen or painful joints to the touch and no erythema present). The patient also states that he typically takes Mcgill and has not been given this --I see it was stopped at discharge from last admission about one week ago. Will restart his Mcgill now and increase the frequency temporarily as part of his issue may be narcotic withdrawal. Hold any steorids for now. Cont steroid injections as outpatient [id number]. Per Dr. Raza during last hospitalization, patient is not a great surgical candidate. 3. Nausea diarrhea and vomiting 2/2 acute gastroenteritis of uncertain etiology -appears to have resolved. Pt reports tolerating lunch without issues today. Cont supportive care. Of note, there was no abdominal imaging on admission and I feel unnecessary to order this now because his symptoms have resolved and he has no abdominal tenderness on exam, positive bowel sounds and is tolerating PO at this time. Stool studies are pending. 4. Anemia -recently decreased from Hb 12.8 in Jan 2016 to current levels of 9.0. Will obtain iron studies. There is no active bleeding. Poss anemia of chronic disease versus CKD. 5. Chronic systolic heart failure secondary to ischemic cardiomyopathy- clinically appears euvolemic to dry. Hold Lasix. Cont ASA, statin, and Coreg. Hold Lis in setting of YAMEL 6. Coronary artery disease status post coronary artery bypass grafting-as above. 7. AFib, rate controlled. INR therapeutic. Cont coumadin per home dosing. 8. 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 I see no reason to continue him on this for nausea. Stopping sulcralfate now. PPI is BID as outpatient so will cont this here. 9. DM type 2, insulin requiring at home -within goal at this time,however, expect to increase as patient got his appetite back. DVT proph-coumadin Full Code Dispo-Med/Surg floor through the weekend, then back to [place] when improved. Monica Akers DO [facility] Hospitalist Consultants: Nephro Current Inpatient Medications: Current Inpatient Medications Medications (Trade) Dose Ordered Sig/Aileen Route Start Time Stop Time Status Last Admin Dose Admin Acetaminophen (Tylenol Tab) 650 mg Q4H PRN PO 06/30/16 19:45 07/30/16 19:44 06/30/16 23:54 650 MG Glucose (Glucose 40% Gel) 15-30 GRAMS 15 GRAMS... UD PRN PO 06/30/16 19:45 07/30/16 19:44 06/30/16 23:05 15 GM Glucose (Glucose Chew Tab) 4-8 Tablets 4 Tabl... UD PRN PO 06/30/16 19:45 07/30/16 19:44 Dextrose (Dextrose 50% 50ML Syringe) 25-50ML OF 50% DW IV FOR... UD PRN IV 06/30/16 19:45 07/30/16 19:44 Glucagon (Glucagon Inj) 1 mg UD PRN SQ 06/30/16 19:45 07/30/16 19:44 Hydromorphone HCl (Dilaudid Inj) 0.5 mg Q3H PRN IV 06/30/16 19:45 07/14/16 19:44 Tramadol HCl (Ultram Tab) not relieved ... Q6H PRN PO 06/30/16 19:45 07/30/16 19:44 07/01/16 01:01 50 MG Ondansetron HCl 4 mg 4 mg Q6H PRN IV 06/30/16 19:45 07/30/16 19:44 Promethazine HCl/ Sodium Chloride (Phenergan Inj/ Nss 50ml) 50.5 ml @ 204 mls/hr Q6H PRN IV 06/30/16 19:45 07/30/16 19:44 Allopurinol (Zyloprim Tab) 200 mg DAILY PO 07/01/16 08:00 07/31/16 08:59 07/01/16 08:55 200 MG Aspirin (Aspirin Chew) 81 mg QAM PO 07/01/16 08:00 07/31/16 08:59 07/01/16 08:55 81 MG Atorvastatin Calcium (Lipitor Tab) 80 mg QPM PO 06/30/16 21:00 07/30/16 20:59 06/30/16 23:03 80 MG Carvedilol (Coreg Tab) 3.125 mg BID PO 06/30/16 21:00 07/30/16 20:59 07/01/16 08:56 3.125 MG Mirtazapine (Remeron Tab) 15 mg HS PRN PO 06/30/16 19:45 07/30/16 19:44 Multivitamins (Multivitamin Tab) 1 tab DAILY PO 07/01/16 08:00 07/31/16 08:59 07/01/16 08:56 1 TAB Sucralfate (Carafate Tab) 1 gm QID PO 06/30/16 21:00 07/30/16 20:59 07/01/16 12:03 1 GM Trazodone HCl (Desyrel Tab) 25 mg HS PO 06/30/16 21:00 07/30/16 20:59 06/30/16 23:04 25 MG Pantoprazole Sodium (Protonix Tab) 40 mg BID PO 06/30/16 21:00 07/30/16 20:59 07/01/16 08:56 40 MG Insulin Aspart (novoLOG ASPART) SLIDING SCALE If C... Q4H SC 07/01/16 08:00 07/31/16 07:59 Albumin Human (Albumin 25%) 25 gm BID IV 07/01/16 08:00 07/04/16 07:59 07/01/16 09:35 25 GM
[2016-07-01] MEDS: HYDROCODONE/ACETAMOPHEN 5/325MG TAB PO PRN (17:28)
[2016-07-01] MEDS: WARFARIN SOD 5 MG TAB PO SCH (17:29)
[2016-07-01] MEDS: ATORVASTATIN 40 MG TAB PO SCH (21:31)
[2016-07-01] MEDS: TRAZODONE HCL 50 MG TAB PO SCH (21:32)
[2016-07-02] VITALS: O2SAT 95
[2016-07-02] MEDS: ALBUMIN HUMAN 25% 12.5 GM/50 ML VIAL IV SCH (07:33)
[2016-07-02] MEDS: ALLOPURINOL 100 MG TAB PO SCH (07:37)
[2016-07-02] MEDS: MULTIVITAMIN TAB PO SCH (07:38)
[2016-07-02] MEDS: ASPIRIN 81 MG CHEW PO SCH (07:38)
[2016-07-02] MEDS: CARVEDILOL 3.125 MG TAB PO SCH ×2 (07:39→21:44)
[2016-07-02] MEDS: PANTOprazole SOD 40 MG TAB PO SCH ×2 (07:39→21:45)
[2016-07-02 07:40] VITALS: BP 147/74; PULSE 73; TEMP 36.9; O2SAT 95
[2016-07-02] MEDS: INSULIN ASPART 100 UNITS/ML 3 ML PEN SC SCH ×4 (07:41→21:43)
[2016-07-02 07:45] LABS: INR 2.1 (0.9-1.1); PROTHROMBIN TIME (PATIENT) 23.4 SECONDS (9.0-12.0)
[2016-07-02] MEDS: HYDROCODONE/ACETAMOPHEN 5/325MG TAB PO PRN (07:45)
[2016-07-02 08:00] VITALS: BP 157/83; PULSE 79
[2016-07-02 08:29] LABS: BUN/CREATININE RATIO 26.4 (10-20); CALCIUM 8.2 mg/dl (8.5-10.1); CREATININE 1.4 mg/dl (0.60-1.40); FERRITIN 372.9 ng/ml (8.0-388.0); POTASSIUM 4.1 mmol/L (3.5-5.1)
[2016-07-02] MEDS: INSULIN GLARGINE SOLOSTAR 100 UNITS/ML 3 ML PEN SC SCH ×2 (08:57→21:44)
--- NOTE | 2016-07-02 09:42 | Nephrology Progress Note ---
Nephrology Progress Note Date of Service: July 02, 2016. Subjective 80 yo male seen for follow up of ana m and worsening edema. diuretics on hold and giving albumin. pt did have n/v/d which have improved. swelling also improved likely from keeping legs up as well as the albumin. pt feels good. no sob. Objective Date Time Temp Pulse Resp B/P Pulse Ox O2 Delivery O2 Flow Rate FiO2 07/02/16 08:00 79 157/83 07/02/16 07:40 36.9 73 18 147/74 95 Room Air 07/02/16 00:00 95 Room Air 07/01/16 22:05 67 95 21 07/01/16 21:20 36.8 78 18 135/71 95 Room Air 07/01/16 16:00 Room Air 07/01/16 15:20 36.8 90 20 132/73 96 07/01/16 10:21 36.7 70 18 131/77 97 Room Air Physical Exam: General-aaox3 Eyes-no scleral icterus ENT-mmm Neck-supple Lungs-cta Heart-irregularly irregular Abdomen-bs+ s/nt/nd Extremities-mild edema Neuro-nonfocal Current Inpatient Medications Medications (Trade) Dose Ordered Sig/Aileen Route Start Time Stop Time Status Last Admin Dose Admin Acetaminophen (Tylenol Tab) 650 mg Q4H PRN PO 06/30/16 19:45 07/30/16 19:44 06/30/16 23:54 650 MG Glucose (Glucose 40% Gel) 15-30 GRAMS 15 GRAMS... UD PRN PO 06/30/16 19:45 07/30/16 19:44 06/30/16 23:05 15 GM Glucose (Glucose Chew Tab) 4-8 Tablets 4 Tabl... UD PRN PO 06/30/16 19:45 07/30/16 19:44 Dextrose (Dextrose 50% 50ML Syringe) 25-50ML OF 50% DW IV FOR... UD PRN IV 06/30/16 19:45 07/30/16 19:44 Glucagon (Glucagon Inj) 1 mg UD PRN SQ 06/30/16 19:45 07/30/16 19:44 Hydromorphone HCl (Dilaudid Inj) 0.5 mg Q3H PRN IV 06/30/16 19:45 07/14/16 19:44 Tramadol HCl (Ultram Tab) not relieved ... Q6H PRN PO 06/30/16 19:45 07/30/16 19:44 07/01/16 01:01 50 MG Ondansetron HCl 4 mg 4 mg Q6H PRN IV 06/30/16 19:45 07/30/16 19:44 Promethazine HCl/ Sodium Chloride (Phenergan Inj/ Nss 50ml) 50.5 ml @ 204 mls/hr Q6H PRN IV 06/30/16 19:45 07/30/16 19:44 Allopurinol (Zyloprim Tab) 200 mg DAILY PO 07/01/16 08:00 07/31/16 08:59 07/02/16 07:37 200 MG Aspirin (Aspirin Chew) 81 mg QAM PO 07/01/16 08:00 07/31/16 08:59 07/02/16 07:38 81 MG Atorvastatin Calcium (Lipitor Tab) 80 mg QPM PO 06/30/16 21:00 07/30/16 20:59 07/01/16 21:31 80 MG Carvedilol (Coreg Tab) 3.125 mg BID PO 06/30/16 21:00 07/30/16 20:59 07/02/16 07:39 3.125 MG Mirtazapine (Remeron Tab) 15 mg HS PRN PO 06/30/16 19:45 07/30/16 19:44 Multivitamins (Multivitamin Tab) 1 tab DAILY PO 07/01/16 08:00 07/31/16 08:59 07/02/16 07:38 1 TAB Trazodone HCl (Desyrel Tab) 25 mg HS PO 06/30/16 21:00 07/30/16 20:59 07/01/16 21:32 25 MG Pantoprazole Sodium (Protonix Tab) 40 mg BID PO 06/30/16 21:00 07/30/16 20:59 07/02/16 07:39 40 MG Albumin Human (Albumin 25%) 25 gm BID IV 07/01/16 08:00 07/04/16 07:59 07/02/16 07:33 25 GM Acetaminophen/ Hydrocodone Bitart ([place] 5/325 Tab) 1 tab Q4H PRN PO 07/01/16 15:30 07/15/16 15:29 07/02/16 07:45 1 TAB Warfarin Sodium (Coumadin Tab) 5 mg MoFr@1600 PO 07/01/16 16:00 07/31/16 15:59 07/01/16 17:29 5 MG Warfarin Sodium (Coumadin Tab) 10 mg SuTuWeThSa@1600 PO 07/02/16 16:00 08/01/16 15:59 Insulin Aspart (novoLOG ASPART) SLIDING SCALE If C... ACHS SC 07/01/16 22:00 07/01/16 21:40 1 UNITS Insulin Glargine (Lantus Solostar Pen) 5 unit BID SC 07/02/16 08:00 08/01/16 07:59 07/02/16 08:57 5 UNIT Last 24 Hours Test 07/01/16 11:42 07/01/16 16:33 07/01/16 20:01 07/02/16 07:23 Bedside Glucose 113 mg/dl 179 mg/dl 222 mg/dl Prothrombin Time 23.4 SECONDS Prothromb Time International Ratio 2.1 Sodium Level 138 mmol/L Potassium Level 4.1 mmol/L Chloride Level 104 mmol/L Carbon Dioxide Level 27 mmol/L Anion Gap 7.0 mmol/L Blood Urea Nitrogen 37 mg/dl Creatinine 1.40 mg/dl Est Creatinine Clear Calc Drug Dose 60.0 ml/min Estimated GFR () 54.6 Estimated GFR (Non- 47.1 BUN/Creatinine Ratio 26.4 Random Glucose 142 mg/dl Calcium Level 8.2 mg/dl Iron Level 26 mcg/dl Total Iron Binding Capacity 170 mcg/dl Ferritin 372.9 ng/ml Test 07/02/16 07:41 Bedside Glucose 146 mg/dl Assessment & Plan ana m on ckd-creatinine improved nicely with holding diuretics and giving albumin. would like to restart lasix 20mg po bid today and stopped the albumin. creatinine back to baseline
[2016-07-02] MEDS ORDERED: HYDROCODONE/ACETAMOPHEN 5/325MG TAB PO PRN (12:43)
--- NOTE | 2016-07-02 12:52 | Progress Note ---
Medicine Progress Note Date & Time of Visit: July 02, 2016 at 12:00. Subjective 80 yo M admitted two days ago for YAMEL 2/2 acute gastroenteritis that has resolved When I walked in the patient is hanging his head low and appears sad. He states that he wants to stay in the hospital because his leg pain is severe and he knows they won't address it at [facility]. He tells me that the prednisone given last week didn't help his pain. He has both pain in his R knee where he received the steroid injection, as well as the ankles bilaterally. He also reports significant calf pain. He still has edema but states that the TEDs placed yesterday and the Manley have helped somewhat. He has been tolerating PO and denies any nausea, vomiting or diarrhea. He became very happy when I told him he would stay here one more day to run some more tests. It is very apparent that this pain is chronic and severe for him and has been undertreated in the past. Objective Last 8 Hrs Date Time Temp Pulse Resp B/P Pulse Ox O2 Delivery O2 Flow Rate FiO2 07/02/16 08:00 79 157/83 07/02/16 07:40 36.9 73 18 147/74 95 Room Air Physical Exam: GEN: obese, in no acute distress unless I touch his legs, alert and appropriate HEENT: NC/AT, pupils are equal and round, normal sclerae, MMM CARDIO: reg rate, S1/2 heard without m/g/r, no JVD LUNGS: CTA bilaterally, no crackles, rales or wheezes, good diaphragmatic excursion ABD: soft, non-tender, non-distended, no rebound or guarding EXTREMITY: RP and DP palpable 2+ bilat, 2+ pitting edema bilaterally up to knees. Extremities are warm and well-perfused. TEDs in place NEURO: CN 2-12 grossly intact MUSC: generalized weakness but no gross focal deficits. SKIN: warm and dry and as above. Laboratory Results: 07/01/16 06:42 Red Blood Count 3.12, Mean Corpuscular Volume 88.5, Mean Corpuscular Hemoglobin 28.8, Mean Corpuscular Hemoglobin Concent 32.6, Mean Platelet Volume 8.9, Neutrophils (%) (Auto) 68.9, Lymphocytes (%) (Auto) 18.2, Monocytes (%) (Auto) 7.7, Eosinophils (%) (Auto) 4.8, Basophils (%) (Auto) 0.0, Neutrophils # (Auto) 5.29, Lymphocytes # (Auto) 1.40, Monocytes # (Auto) 0.59, Eosinophils # (Auto) 0.37, Basophils # (Auto) 0.00 07/02/16 07:23 Test 06/30/16 17:20 06/30/16 19:15 06/30/16 20:04 07/01/16 06:42 Activated Partial Thromboplast Time 38.6 SECONDS (21.0-31.0) Partial Thromboplastin Ratio 1.5 Magnesium Level 2.3 mg/dl (1.8-2.4) Total Bilirubin 0.5 mg/dl (0.2-1) Direct Bilirubin 0.1 mg/dl (0-0.2) Aspartate Amino Transf (AST/SGOT) 15 U/L (15-37) Alanine Aminotransferase (ALT/SGPT) 32 U/L (12-78) Alkaline Phosphatase 104 U/L (45-117) Total Protein 6.3 gm/dl (6.4-8.2) Albumin 2.5 gm/dl (3.4-5.0) Lipase 385 U/L (73-393) Urine Color YELLOW Urine Appearance CLEAR (CLEAR) Urine pH 5.0 (4.5-7.5) Urine Specific [place] 1.012 (1.000-1.030) Urine Protein NEG (NEG) Urine Glucose (UA) NEG (NEG) Urine Ketones NEG (NEG) Urine Occult Blood NEG (NEG) Urine Nitrite NEG (NEG) Urine Bilirubin NEG (NEG) Urine Urobilinogen NEG (NEG) Urine Leukocyte Esterase TRACE (NEG) Urine WBC (Auto) 1-5 /hpf (0-5) Urine RBC (Auto) 0-4 /hpf (0-4) Urine Hyaline Casts (Auto) 1-5 /lpf (0-5) Urine Epithelial Cells (Auto) 10-20 /lpf (0-5) Urine Bacteria (Auto) NEG (NEG) Lactic Acid Level 1.0 mmol/L (0.4-2.0) White Blood Count 7.68 K/uL (4.8-10.8) Red Blood Count 3.12 M/uL (4.7-6.1) Hemoglobin 9.0 g/dL (14.0-18.0) Hematocrit 27.6 % (42-52) Mean Corpuscular Volume 88.5 fL (80-100) Mean Corpuscular Hemoglobin 28.8 pg (25-34) Mean Corpuscular Hemoglobin Concent 32.6 g/dl (32-36) Platelet Count 176 K/uL (130-400) Mean Platelet Volume 8.9 fL (7.4-10.4) Neutrophils (%) (Auto) 68.9 % Lymphocytes (%) (Auto) 18.2 % Monocytes (%) (Auto) 7.7 % Eosinophils (%) (Auto) 4.8 % Basophils (%) (Auto) 0.0 % Neutrophils # (Auto) 5.29 K/uL (1.4-6.5) Lymphocytes # (Auto) 1.40 K/uL (1.2-3.4) Monocytes # (Auto) 0.59 K/uL (0.11-0.59) Eosinophils # (Auto) 0.37 K/uL (0-0.5) Basophils # (Auto) 0.00 K/uL (0-0.2) RDW Standard Deviation 58.7 fL (36.4-46.3) RDW Coefficient of Variation 18.3 % (11.5-14.5) Immature Granulocyte % (Auto) 0.4 % Immature Granulocyte # (Auto) 0.03 K/uL (0.00-0.02) Test 07/02/16 07:23 07/02/16 07:41 07/02/16 11:40 Prothrombin Time 23.4 SECONDS (9.0-12.0) Prothromb Time International Ratio 2.1 (0.9-1.1) Anion Gap 7.0 mmol/L (3-11) Est Creatinine Clear Calc Drug Dose 60.0 ml/min Estimated GFR () 54.6 Estimated GFR (Non- 47.1 BUN/Creatinine Ratio 26.4 (10-20) Calcium Level 8.2 mg/dl (8.5-10.1) Iron Level 26 mcg/dl (35-175) Total Iron Binding Capacity 170 mcg/dl (250-450) Ferritin 372.9 ng/ml (8.0-388.0) Bedside Glucose 146 mg/dl (70-99) Last 24 Hours Test 07/01/16 16:33 07/01/16 20:01 07/02/16 07:23 07/02/16 07:41 Bedside Glucose 179 mg/dl 222 mg/dl 146 mg/dl Prothrombin Time 23.4 SECONDS Prothromb Time International Ratio 2.1 Sodium Level 138 mmol/L Potassium Level 4.1 mmol/L Chloride Level 104 mmol/L Carbon Dioxide Level 27 mmol/L Anion Gap 7.0 mmol/L Blood Urea Nitrogen 37 mg/dl Creatinine 1.40 mg/dl Est Creatinine Clear Calc Drug Dose 60.0 ml/min Estimated GFR () 54.6 Estimated GFR (Non- 47.1 BUN/Creatinine Ratio 26.4 Random Glucose 142 mg/dl Calcium Level 8.2 mg/dl Iron Level 26 mcg/dl Total Iron Binding Capacity 170 mcg/dl Ferritin 372.9 ng/ml Test 07/02/16 11:40 Assessment & Plan 80 yo M presents from [facility] rehab coats with nausea, vomiting and diarrhea for the past week with YAMEL. Recently discharged one week ago after being admitted for heart failure exacerbation. 1. Acute renal failure on chronic renal insufficiency 2/2 dehydration causing diarrhea. Volume status is difficult to determine in this patient, however, his lungs are clear and he has chronically edematous legs so appears hypo to euvolemic with a low effective arterial volume. Lasix was stopped on admission as well as Lisinopril. Albumin and IVF were given yesterday with some improvement in creat from 2.6 to 2.0 today (baseline 1.5). Per Nephro, will give some more albumin to him to help raise oncotic pressure in the intravascular space and decrease third spacing. Will also add TEDs +/- SCDs. Repeat PRP in am. It appears that the diarrhea and vomiting has not been ongoing today. 07/02: euvolemic today with kidney function back to baseline. Per Nephro, continue Lasix BID 2. Gouty arthritis in R knee that is crystal-proven on last admission along with presumed gouty arthritis of the feet bilaterally. The patient cannot localize an area of pain in his legs and reports pain in calves, shins, ankles, knees and toes bilaterally. He has been reportedly ambulatory at [facility] over the past week so less concerned for DVT at this time, and the fact that he is tender all over with no evidence of thrombotic syndrome makes this less likely. Will check vit D level as patient has recently been on high dose supplementation, and low D can cause some pain like this. Pt received an intraarticular injection of steroids two weeks ago and was sent home on a 5 day prednisone burst. There is no evidence of a gout attack at this time (i.e-no swollen or painful joints to the touch and no erythema present). The patient also states that he typically takes Manley and has not been given this --I see it was stopped at discharge from last admission about one week ago. Will restart his Manley now and increase the frequency temporarily as part of his issue may be narcotic withdrawal. Hold any steorids for now. Cont steroid injections as outpatient [id number]. Per Dr. Raza during last hospitalization, patient is not a great surgical candidate. 07/02: pain in knees, ankles and calves is severe today. Manley helped some but not enough. With recent hospitalization will rule out DVT, vit D level pending as low vit D may be contributing, and will initiate some Indocin for gout flare. With Indocin on board will hold Lasix. Of note, he states that the oral prednisone he took over the last week did not help his joint pain. I believe his leg pain is likely 2/2 statin use, however. Will hold this for now and Dr. Ryder can rechallenge him as she sees fit as outpatient. 3. 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 Stopped Lipitor now and will obtain CK in am. Treat for gout simultaneously as above. 4. Nausea diarrhea and vomiting 2/2 acute gastroenteritis of uncertain etiology -resolved. 5. Anemia -recently decreased from Hb 12.8 in Jan 2016 to current levels of 9.0. Poss ACD vs CKD? Defer to Nephrology and outpatient PCP for continued workup/treatment. 6. Chronic systolic heart failure secondary to ischemic cardiomyopathy- clinically appears euvolemic to dry. Hold Lasix in setting of Indocin use for gout flare. Cont ASA, statin, and Coreg. Cont to hold Lisinopril in setting of Indocin use. 7. Coronary artery disease status post coronary artery bypass grafting-as above. 8. AFib, rate controlled. INR therapeutic. Cont coumadin per home dosing. 9. 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 I see no reason to continue him on this for nausea. Stopping sulcralfate now. PPI is BID as outpatient so will cont this here. 10. DM type 2, insulin requiring at home -within goal at this time,however, expect to increase as patient got his appetite back. DVT proph-coumadin Full Code Dispo- to [facility] in 1-2 days once leg pain improves. [facility] Hospital[facility] Consultants: Nephro Current Inpatient Medications: Current Inpatient Medications Medications (Trade) Dose Ordered Sig/Aileen Route Start Time Stop Time Status Last Admin Dose Admin Acetaminophen (Tylenol Tab) 650 mg Q4H PRN PO 06/30/16 19:45 07/30/16 19:44 06/30/16 23:54 650 MG Glucose (Glucose 40% Gel) 15-30 GRAMS 15 GRAMS... UD PRN PO 06/30/16 19:45 07/30/16 19:44 06/30/16 23:05 15 GM Glucose (Glucose Chew Tab) 4-8 Tablets 4 Tabl... UD PRN PO 06/30/16 19:45 07/30/16 19:44 Dextrose (Dextrose 50% 50ML Syringe) 25-50ML OF 50% DW IV FOR... UD PRN IV 06/30/16 19:45 07/30/16 19:44 Glucagon (Glucagon Inj) 1 mg UD PRN SQ 06/30/16 19:45 07/30/16 19:44 Hydromorphone HCl (Dilaudid Inj) 0.5 mg Q3H PRN IV 06/30/16 19:45 07/14/16 19:44 Tramadol HCl (Ultram Tab) not relieved ... Q6H PRN PO 06/30/16 19:45 07/30/16 19:44 07/01/16 01:01 50 MG Ondansetron HCl 4 mg 4 mg Q6H PRN IV 06/30/16 19:45 07/30/16 19:44 Promethazine HCl/ Sodium Chloride (Phenergan Inj/ Nss 50ml) 50.5 ml @ 204 mls/hr Q6H PRN IV 06/30/16 19:45 07/30/16 19:44 Allopurinol (Zyloprim Tab) 200 mg DAILY PO 07/01/16 08:00 6/18/17 08:59 07/02/16 07:37 200 MG Aspirin (Aspirin Chew) 81 mg QAM PO 07/01/16 08:00 07/31/16 08:59 07/02/16 07:38 81 MG Atorvastatin Calcium (Lipitor Tab) 80 mg QPM PO 06/30/16 21:00 07/30/16 20:59 07/01/16 21:31 80 MG Carvedilol (Coreg Tab) 3.125 mg BID PO 06/30/16 21:00 07/30/16 20:59 07/02/16 07:39 3.125 MG Mirtazapine (Remeron Tab) 15 mg HS PRN PO 06/30/16 19:45 07/30/16 19:44 Multivitamins (Multivitamin Tab) 1 tab DAILY PO 07/01/16 08:00 07/31/16 08:59 07/02/16 07:38 1 TAB Trazodone HCl (Desyrel Tab) 25 mg HS PO 06/30/16 21:00 07/30/16 20:59 07/01/16 21:32 25 MG Pantoprazole Sodium (Protonix Tab) 40 mg BID PO 06/30/16 21:00 07/30/16 20:59 07/02/16 07:39 40 MG Acetaminophen/ Hydrocodone Bitart ([place] 5/325 Tab) 1 tab Q4H PRN PO 07/01/16 15:30 07/15/16 15:29 07/02/16 07:45 1 TAB Warfarin Sodium (Coumadin Tab) 5 mg MoFr@1600 PO 07/01/16 16:00 07/31/16 15:59 07/01/16 17:29 5 MG Warfarin Sodium (Coumadin Tab) 10 mg SuTuWeThSa@1600 PO 07/02/16 16:00 08/01/16 15:59 Insulin Aspart (novoLOG ASPART) SLIDING SCALE If C... ACHS SC 07/01/16 22:00 07/01/16 21:40 1 UNITS Insulin Glargine (Lantus Solostar Pen) 5 unit BID SC 07/02/16 08:00 08/01/16 07:59 07/02/16 08:57 5 UNIT Furosemide (Lasix Tab) 20 mg BID17 PO 5/20/17 17:00 08/01/16 16:59
[2016-07-02] MEDS: INDOMETHACIN 25 MG CAP PO SCH ×2 (14:46→22:03)
[2016-07-02 15:00] VITALS: BP 152/82; PULSE 85; TEMP 37.6; O2SAT 95
[2016-07-02] MEDS: ACETAMINOPHEN 325 MG TAB PO PRN (15:05)
--- NOTE | 2016-07-02 16:55 | DIAGNOSTIC IMAGING REPORT ---
BILATERAL LOWER EXTREMITY VENOUS DOPPLER HISTORY: Pain. Edema. leg pain with edema COMPARISON STUDY: 06/17/2016 FINDINGS: There is normal compressibility, flow, and augmentation within the bilateral lower extremity deep venous systems. IMPRESSION: No DVT within the right or left lower extremity. No change from the prior study. Electronically signed by: Andrew Cherry M.D. 07/02/2016 4:54 PM Dictated Date/Time: 07/02/2016 4:53 PM
[2016-07-02] MEDS ORDERED: FUROSEMIDE 20 MG TAB PO SCH (17:00)
[2016-07-02] MEDS: WARFARIN SOD 10 MG TAB PO SCH (17:51)
[2016-07-02] MEDS: TRAZODONE HCL 50 MG TAB PO SCH (21:46)
[2016-07-02 22:42] VITALS: BP 133/68; PULSE 84; TEMP 36.8; O2SAT 93
[2016-07-03 06:58] VITALS: BP 154/68; PULSE 75; TEMP 36.5; O2SAT 96
[2016-07-03 07:57] LABS: INR 1.8 (0.9-1.1); PROTHROMBIN TIME (PATIENT) 20.1 SECONDS (9.0-12.0)
[2016-07-03 08:07] LABS: BUN/CREATININE RATIO 21.5 (10-20); CREATININE 1.7 mg/dl (0.60-1.40); POTASSIUM 3.9 mmol/L (3.5-5.1)
[2016-07-03] MEDS: INSULIN ASPART 100 UNITS/ML 3 ML PEN SC SCH ×4 (08:15→20:46)
[2016-07-03] MEDS: PANTOprazole SOD 40 MG TAB PO SCH ×2 (08:15→20:40)
[2016-07-03] MEDS: MULTIVITAMIN TAB PO SCH (08:15)
[2016-07-03] MEDS: CARVEDILOL 3.125 MG TAB PO SCH ×2 (08:15→20:40)
[2016-07-03] MEDS: ASPIRIN 81 MG CHEW PO SCH (08:15)
[2016-07-03] MEDS: INDOMETHACIN 25 MG CAP PO SCH ×3 (08:16→20:40)
[2016-07-03 08:17] LABS: THYROID STIMULATING HORMONE 1.05 uIu/ml (0.300-4.500)
[2016-07-03] MEDS: INSULIN GLARGINE SOLOSTAR 100 UNITS/ML 3 ML PEN SC SCH ×2 (08:22→20:45)
[2016-07-03 08:27] LABS: CALCIUM 8.4 mg/dl (8.5-10.1)
--- NOTE | 2016-07-03 11:21 | Nephrology Progress Note ---
Nephrology Progress Note Date of Service: July 03, 2016. Subjective 80 yo male seen for follow up of ana m and worsening edema. diuretics on hold and was given fluids initially and then albumin. creatinine improved to baseline however was having worsening leg pains. started on indomethacin yesterday and pain is getting better. both legs causing pain up to his knees. Objective Date Time Temp Pulse Resp B/P Pulse Ox O2 Delivery O2 Flow Rate FiO2 07/03/16 08:00 Room Air 07/03/16 06:58 36.5 75 20 154/68 96 Room Air 07/02/16 23:59 Room Air 07/02/16 22:42 36.8 84 18 133/68 93 Room Air 07/02/16 20:00 Room Air 07/02/16 16:00 Room Air 07/02/16 15:00 37.6 85 20 152/82 95 Room Air Physical Exam: General-aaox3 Eyes-no scleral icterus ENT-mmm Neck-supple Lungs-clear Heart-irregularly irregular Abdomen-bs+ s/nt/nd Extremities-mild edema Neuro-nonfocal Current Inpatient Medications Medications (Trade) Dose Ordered Sig/Aileen Route Start Time Stop Time Status Last Admin Dose Admin Acetaminophen (Tylenol Tab) 650 mg Q4H PRN PO 06/30/16 19:45 07/30/16 19:44 07/02/16 15:05 650 MG Glucose (Glucose 40% Gel) 15-30 GRAMS 15 GRAMS... UD PRN PO 06/30/16 19:45 07/30/16 19:44 06/30/16 23:05 15 GM Glucose (Glucose Chew Tab) 4-8 Tablets 4 Tabl... UD PRN PO 06/30/16 19:45 07/30/16 19:44 Dextrose (Dextrose 50% 50ML Syringe) 25-50ML OF 50% DW IV FOR... UD PRN IV 06/30/16 19:45 07/30/16 19:44 Glucagon (Glucagon Inj) 1 mg UD PRN SQ 06/30/16 19:45 07/30/16 19:44 Hydromorphone HCl (Dilaudid Inj) 0.5 mg Q3H PRN IV 06/30/16 19:45 07/14/16 19:44 Tramadol HCl (Ultram Tab) not relieved ... Q6H PRN PO 06/30/16 19:45 07/30/16 19:44 07/01/16 01:01 50 MG Ondansetron HCl 4 mg 4 mg Q6H PRN IV 06/30/16 19:45 07/30/16 19:44 Promethazine HCl/ Sodium Chloride (Phenergan Inj/ Nss 50ml) 50.5 ml @ 204 mls/hr Q6H PRN IV 06/30/16 19:45 07/30/16 19:44 Aspirin (Aspirin Chew) 81 mg QAM PO 07/01/16 08:00 07/31/16 08:59 07/03/16 08:15 81 MG Carvedilol (Coreg Tab) 3.125 mg BID PO 06/30/16 21:00 07/30/16 20:59 07/03/16 08:15 3.125 MG Mirtazapine (Remeron Tab) 15 mg HS PRN PO 06/30/16 19:45 07/30/16 19:44 Multivitamins (Multivitamin Tab) 1 tab DAILY PO 07/01/16 08:00 07/31/16 08:59 07/03/16 08:15 1 TAB Trazodone HCl (Desyrel Tab) 25 mg HS PO 06/30/16 21:00 07/30/16 20:59 07/02/16 21:46 25 MG Pantoprazole Sodium (Protonix Tab) 40 mg BID PO 06/30/16 21:00 07/30/16 20:59 07/03/16 08:15 40 MG Warfarin Sodium (Coumadin Tab) 5 mg MoFr@1600 PO 07/01/16 16:00 07/31/16 15:59 07/01/16 17:29 5 MG Warfarin Sodium (Coumadin Tab) 10 mg SuTuWeThSa@1600 PO 07/02/16 16:00 08/01/16 15:59 07/02/16 17:51 10 MG Insulin Aspart (novoLOG ASPART) SLIDING SCALE If C... ACHS SC 07/01/16 22:00 07/02/16 21:43 5 UNITS Insulin Glargine (Lantus Solostar Pen) 5 unit BID SC 07/02/16 08:00 08/01/16 07:59 07/03/16 08:22 5 UNIT Furosemide (Lasix Tab) 20 mg BID17 PO 07/02/16 17:00 08/01/16 16:59 Future Hold Indomethacin (Indocin Cap) 50 mg TID PO 07/02/16 14:00 07/04/16 13:59 07/03/16 08:16 50 MG Acetaminophen/ Hydrocodone Bitart ([place] 5/325 Tab) 1 tab Q8H PRN PO 07/02/16 12:43 07/16/16 12:42 Last 24 Hours Test 07/02/16 11:18 07/02/16 12:37 07/02/16 16:55 07/02/16 19:53 Bedside Glucose 179 mg/dl 244 mg/dl 282 mg/dl 25-Hydroxy Vitamin D Total 37.1 ng/ml Test 07/02/16 23:00 07/03/16 07:17 07/03/16 08:06 Bedside Glucose 241 mg/dl 159 mg/dl Prothrombin Time 20.1 SECONDS Prothromb Time International Ratio 1.8 Sodium Level 138 mmol/L Potassium Level 3.9 mmol/L Chloride Level 105 mmol/L Carbon Dioxide Level 25 mmol/L Anion Gap 8.0 mmol/L Blood Urea Nitrogen 37 mg/dl Creatinine 1.70 mg/dl Est Creatinine Clear Calc Drug Dose 49.4 ml/min Estimated GFR () 43.2 Estimated GFR (Non- 37.3 BUN/Creatinine Ratio 21.5 Random Glucose 159 mg/dl Calcium Level 8.4 mg/dl Total Creatine Kinase 28 U/L Thyroid Stimulating Hormone (TSH) 1.050 uIu/ml Assessment & Plan ana m on ckd-creatinine improved nicely with holding diuretics and giving albumin. now on indomethacin for his bilateral knee pain and recommend while patient on indomethacin, would continue to wait on restarting the diuretics. creatinine trending back up. will follow trend. if creatinine continues to worsen, may consider restarting the albumin. for now, ok with the indomethacin since steroids failed last week. appears to be improving his symptoms. once finished with indomethacin, consider restarting diuretics at that time. pt appears to be tolerating being off the diuretics at this time.
[2016-07-03 15:20] VITALS: BP 151/73; PULSE 73; TEMP 36.8; O2SAT 94
--- NOTE | 2016-07-03 17:52 | Progress Note ---
Medicine Progress Note Date & Time of Visit: July 03, 2016 at 12:56. Subjective Leg pain is improved since yesterday. Tolerating PO No n/v/d present Indocin started yesterday--Lasix and ACEI held--creat bumped to 1.7 Wound care following Objective Last 8 Hrs Date Time Temp Pulse Resp B/P Pulse Ox O2 Delivery O2 Flow Rate FiO2 07/03/16 08:00 Room Air 07/03/16 06:58 36.5 75 20 154/68 96 Room Air Physical Exam: GEN: obese, in no acute distress, alert and appropriate, in good spirits. HEENT: NC/AT, pupils are equal and round, normal sclerae, MMM CARDIO: reg rate, S1/2 heard without m/g/r, no JVD LUNGS: CTA bilaterally, no crackles, rales or wheezes, good diaphragmatic excursion ABD: soft, non-tender, non-distended, no rebound or guarding EXTREMITY: RP and DP palpable 2+ bilat, trace edema bilaterally up to knees- difficult to appreciate in setting of TEDs. Extremities are warm and well- perfused. NEURO: CN 2-12 grossly intact MUSC: generalized weakness but no gross focal deficits. SKIN: warm and dry and as above. Laboratory Results: 07/01/16 06:42 Red Blood Count 3.12, Mean Corpuscular Volume 88.5, Mean Corpuscular Hemoglobin 28.8, Mean Corpuscular Hemoglobin Concent 32.6, Mean Platelet Volume 8.9, Neutrophils (%) (Auto) 68.9, Lymphocytes (%) (Auto) 18.2, Monocytes (%) (Auto) 7.7, Eosinophils (%) (Auto) 4.8, Basophils (%) (Auto) 0.0, Neutrophils # (Auto) 5.29, Lymphocytes # (Auto) 1.40, Monocytes # (Auto) 0.59, Eosinophils # (Auto) 0.37, Basophils # (Auto) 0.00 07/03/16 07:17 Test 06/30/16 17:20 06/30/16 19:15 06/30/16 20:04 07/01/16 06:42 Activated Partial Thromboplast Time 38.6 SECONDS (21.0-31.0) Partial Thromboplastin Ratio 1.5 Magnesium Level 2.3 mg/dl (1.8-2.4) Total Bilirubin 0.5 mg/dl (0.2-1) Direct Bilirubin 0.1 mg/dl (0-0.2) Aspartate Amino Transf (AST/SGOT) 15 U/L (15-37) Alanine Aminotransferase (ALT/SGPT) 32 U/L (12-78) Alkaline Phosphatase 104 U/L (45-117) Total Protein 6.3 gm/dl (6.4-8.2) Albumin 2.5 gm/dl (3.4-5.0) Lipase 385 U/L (73-393) Urine Color YELLOW Urine Appearance CLEAR (CLEAR) Urine pH 5.0 (4.5-7.5) Urine Specific [place] 1.012 (1.000-1.030) Urine Protein NEG (NEG) Urine Glucose (UA) NEG (NEG) Urine Ketones NEG (NEG) Urine Occult Blood NEG (NEG) Urine Nitrite NEG (NEG) Urine Bilirubin NEG (NEG) Urine Urobilinogen NEG (NEG) Urine Leukocyte Esterase TRACE (NEG) Urine WBC (Auto) 1-5 /hpf (0-5) Urine RBC (Auto) 0-4 /hpf (0-4) Urine Hyaline Casts (Auto) 1-5 /lpf (0-5) Urine Epithelial Cells (Auto) 10-20 /lpf (0-5) Urine Bacteria (Auto) NEG (NEG) Lactic Acid Level 1.0 mmol/L (0.4-2.0) White Blood Count 7.68 K/uL (4.8-10.8) Red Blood Count 3.12 M/uL (4.7-6.1) Hemoglobin 9.0 g/dL (14.0-18.0) Hematocrit 27.6 % (42-52) Mean Corpuscular Volume 88.5 fL (80-100) Mean Corpuscular Hemoglobin 28.8 pg (25-34) Mean Corpuscular Hemoglobin Concent 32.6 g/dl (32-36) Platelet Count 176 K/uL (130-400) Mean Platelet Volume 8.9 fL (7.4-10.4) Neutrophils (%) (Auto) 68.9 % Lymphocytes (%) (Auto) 18.2 % Monocytes (%) (Auto) 7.7 % Eosinophils (%) (Auto) 4.8 % Basophils (%) (Auto) 0.0 % Neutrophils # (Auto) 5.29 K/uL (1.4-6.5) Lymphocytes # (Auto) 1.40 K/uL (1.2-3.4) Monocytes # (Auto) 0.59 K/uL (0.11-0.59) Eosinophils # (Auto) 0.37 K/uL (0-0.5) Basophils # (Auto) 0.00 K/uL (0-0.2) RDW Standard Deviation 58.7 fL (36.4-46.3) RDW Coefficient of Variation 18.3 % (11.5-14.5) Immature Granulocyte % (Auto) 0.4 % Immature Granulocyte # (Auto) 0.03 K/uL (0.00-0.02) Test 07/02/16 07:23 07/02/16 12:37 07/03/16 07:17 07/03/16 11:29 Iron Level 26 mcg/dl (35-175) Total Iron Binding Capacity 170 mcg/dl (250-450) Ferritin 372.9 ng/ml (8.0-388.0) 25-Hydroxy Vitamin D Total 37.1 ng/ml (30-100) Prothrombin Time 20.1 SECONDS (9.0-12.0) Prothromb Time International Ratio 1.8 (0.9-1.1) Anion Gap 8.0 mmol/L (3-11) Est Creatinine Clear Calc Drug Dose 49.4 ml/min Estimated GFR () 43.2 Estimated GFR (Non- 37.3 BUN/Creatinine Ratio 21.5 (10-20) Calcium Level 8.4 mg/dl (8.5-10.1) Total Creatine Kinase 28 U/L (39-308) Thyroid Stimulating Hormone (TSH) 1.050 uIu/ml (0.300-4.500) Bedside Glucose 182 mg/dl (70-99) Last 24 Hours Test 07/02/16 16:55 07/02/16 19:53 07/02/16 23:00 07/03/16 07:17 Bedside Glucose 244 mg/dl 282 mg/dl 241 mg/dl Prothrombin Time 20.1 SECONDS Prothromb Time International Ratio 1.8 Sodium Level 138 mmol/L Potassium Level 3.9 mmol/L Chloride Level 105 mmol/L Carbon Dioxide Level 25 mmol/L Anion Gap 8.0 mmol/L Blood Urea Nitrogen 37 mg/dl Creatinine 1.70 mg/dl Est Creatinine Clear Calc Drug Dose 49.4 ml/min Estimated GFR () 43.2 Estimated GFR (Non- 37.3 BUN/Creatinine Ratio 21.5 Random Glucose 159 mg/dl Calcium Level 8.4 mg/dl Total Creatine Kinase 28 U/L Thyroid Stimulating Hormone (TSH) 1.050 uIu/ml Test 07/03/16 08:06 07/03/16 11:29 Bedside Glucose 159 mg/dl 182 mg/dl Assessment & Plan 80 [facility] with nausea, vomiting and diarrhea for the past week with YAMEL. Recently discharged one week ago after being admitted for heart failure exacerbation. N/V/D not been present since admission and he is tolerating solid foods well. YAMEL had resolved until Indomethacin added for gout flare yesterday-mild expected elevation in creat to 1.7 this am. Nephro following and is aware. 1. Acute renal failure on chronic renal insufficiency 2/2 dehydration causing diarrhea. Volume status is difficult to determine in this patient, however, his lungs are clear and he has chronically edematous legs so appears hypo to euvolemic with a low effective arterial volume. Lasix was stopped on admission as well as Lisinopril. Albumin and IVF were given yesterday with some improvement in creat from 2.6 to 2.0 today (baseline 1.5). Per Nephro, will give some more albumin to him to help raise oncotic pressure in the intravascular space and decrease third spacing. Will also add TEDs +/- SCDs. Repeat PRP in am. It appears that the diarrhea and vomiting has not been ongoing today. 07/02: euvolemic today with kidney function back to baseline. Per Nephro, continue Lasix BID 07/03: mildly elevated creat with addition of Indocin for gout flare. hold Lasix and lisinopril while on this med 1-2 more days. 2. Gouty arthritis in R knee that is crystal-proven on last admission along with presumed gouty arthritis of the feet bilaterally. The patient cannot localize an area of pain in his legs and reports pain in calves, shins, ankles, knees and toes bilaterally. He has been reportedly ambulatory at [facility] over the past week so less concerned for DVT at this time, and the fact that he is tender all over with no evidence of thrombotic syndrome makes this less likely. Will check vit D level as patient has recently been on high dose supplementation, and low D can cause some pain like this. Pt received an intraarticular injection of steroids two weeks ago and was sent home on a 5 day prednisone burst. There is no evidence of a gout attack at this time (i.e-no swollen or painful joints to the touch and no erythema present). The patient also states that he typically takes [place] and has not been given this --I see it was stopped at discharge from last admission about one week ago. Will restart his [place] now and increase the frequency temporarily as part of his issue may be narcotic withdrawal. Hold any steorids for now. Cont steroid injections as outpatient [id number]. Per Dr. Raza during last hospitalization, patient is not a great surgical candidate. 07/02: pain in knees, ankles and calves is severe today. [place] helped some but not enough. With recent hospitalization will rule out DVT, vit D level pending as low vit D may be contributing, and will initiate some Indocin for gout flare. With Indocin on board will hold Lasix. Of note, he states that the oral prednisone he took over the last week did not help his joint pain. I believe his leg pain is likely 2/2 statin use, however. Will hold this for now and Dr. Ryder can rechallenge him as she sees fit as outpatient. 07/03: pain is improved. Cont Indocin, hold Lasix and lisinopril. Vit D level is WNL. Cont [place] PRN, TEDs, and SCDs. 3. 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 Stopped Lipitor now and will obtain CK in am. Treat for gout simultaneously as above. 4. Nausea diarrhea and vomiting 2/2 acute gastroenteritis of uncertain etiology -resolved. 5. Anemia -recently decreased from Hb 12.8 in Jan 2016 to current levels of 9.0. Poss ACD vs CKD? Defer to Nephrology and outpatient PCP for continued workup/treatment. 6. Chronic systolic heart failure secondary to ischemic cardiomyopathy- clinically appears euvolemic to dry. Hold Lasix in setting of Indocin use for gout flare. Cont ASA, statin, and Coreg. Cont to hold Lisinopril in setting of Indocin use. 7. Coronary artery disease status post coronary artery bypass grafting-as above. 8. AFib, rate controlled. INR therapeutic. Cont coumadin per home dosing. 9. 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 I see no reason to continue him on this for nausea. Stopping sulcralfate now. PPI is BID as outpatient so will cont this here. 10. DM type 2, insulin requiring at home -within goal at this time,however, expect to increase as patient got his appetite back. 11. Stag II Decub on buttocks-was present on admission. Blister wound present on R heel. Dr Ignacio was consulted for this tomorrow. DVT proph-coumadin Full Code Dispo- to [place] in 1-2 days once leg pain improves. Monica Akers DO [facility] Hospitalist Consultants: Nephro Current Inpatient Medications: Current Inpatient Medications Medications (Trade) Dose Ordered Sig/Aileen Route Start Time Stop Time Status Last Admin Dose Admin Acetaminophen (Tylenol Tab) 650 mg Q4H PRN PO 06/30/16 19:45 07/30/16 19:44 07/02/16 15:05 650 MG Glucose (Glucose 40% Gel) 15-30 GRAMS 15 GRAMS... UD PRN PO 06/30/16 19:45 07/30/16 19:44 06/30/16 23:05 15 GM Glucose (Glucose Chew Tab) 4-8 Tablets 4 Tabl... UD PRN PO 06/30/16 19:45 07/30/16 19:44 Dextrose (Dextrose 50% 50ML Syringe) 25-50ML OF 50% DW IV FOR... UD PRN IV 06/30/16 19:45 07/30/16 19:44 Glucagon (Glucagon Inj) 1 mg UD PRN SQ 06/30/16 19:45 07/30/16 19:44 Hydromorphone HCl (Dilaudid Inj) 0.5 mg Q3H PRN IV 06/30/16 19:45 07/14/16 19:44 Tramadol HCl (Ultram Tab) not relieved ... Q6H PRN PO 06/30/16 19:45 07/30/16 19:44 07/01/16 01:01 50 MG Ondansetron HCl 4 mg 4 mg Q6H PRN IV 06/30/16 19:45 07/30/16 19:44 Promethazine HCl/ Sodium Chloride (Phenergan Inj/ Nss 50ml) 50.5 ml @ 204 mls/hr Q6H PRN IV 06/30/16 19:45 07/30/16 19:44 Aspirin (Aspirin Chew) 81 mg QAM PO 07/01/16 08:00 07/31/16 08:59 07/03/16 08:15 81 MG Carvedilol (Coreg Tab) 3.125 mg BID PO 06/30/16 21:00 07/30/16 20:59 07/03/16 08:15 3.125 MG Mirtazapine (Remeron Tab) 15 mg HS PRN PO 06/30/16 19:45 07/30/16 19:44 Multivitamins (Multivitamin Tab) 1 tab DAILY PO 07/01/16 08:00 07/31/16 08:59 07/03/16 08:15 1 TAB Trazodone HCl (Desyrel Tab) 25 mg HS PO 06/30/16 21:00 07/30/16 20:59 07/02/16 21:46 25 MG Pantoprazole Sodium (Protonix Tab) 40 mg BID PO 06/30/16 21:00 07/30/16 20:59 07/03/16 08:15 40 MG Warfarin Sodium (Coumadin Tab) 5 mg MoFr@1600 PO 07/01/16 16:00 07/31/16 15:59 07/01/16 17:29 5 MG Warfarin Sodium (Coumadin Tab) 10 mg SuTuWeThSa@1600 PO 07/02/16 16:00 08/01/16 15:59 07/02/16 17:51 10 MG Insulin Aspart (novoLOG ASPART) SLIDING SCALE If C... ACHS SC 07/01/16 22:00 07/02/16 21:43 5 UNITS Insulin Glargine (Lantus Solostar Pen) 5 unit BID SC 07/02/16 08:00 08/01/16 07:59 07/03/16 08:22 5 UNIT Indomethacin (Indocin Cap) 50 mg TID PO 07/02/16 14:00 07/04/16 13:59 07/03/16 08:16 50 MG Acetaminophen/ Hydrocodone Bitart ([place] 5/325 Tab) 1 tab Q8H PRN PO 07/02/16 12:43 07/16/16 12:42
[2016-07-03] MEDS ORDERED: PHARMACY GLYCEMIC MGMT CONSULT PRN (18:00)
[2016-07-03] MEDS: WARFARIN SOD 10 MG TAB PO SCH ×3 (18:04→18:30)
[2016-07-03] MEDS: TRAZODONE HCL 50 MG TAB PO SCH (23:37)
[2016-07-04 00:12] VITALS: BP 124/71; PULSE 75; TEMP 36.7; O2SAT 94
[2016-07-04 07:07] LABS: BASO % 0.2 %; BASO ABS # 0.02 K/uL (0-0.2); EOS % 3.7 %; HEMATOCRIT 27.8 % (42-52); IG% 0.1 %; LYMPH % 9.6 %; LYMPH ABS # 0.82 K/uL (1.2-3.4); MEAN CELL VOLUME 87.4 fL (80-100); MEAN CORPUSCULAR HEMOGLOBIN 27.7 pg (25-34); MEAN CORPUSCULAR HGB CONC 31.7 g/dl (32-36); MEAN PLATELET VOLUME 9.1 fL (7.4-10.4); MONO % 7.5 %; NEUT % 78.9 %; PLATELET COUNT 142 K/uL (130-400); RED BLOOD COUNT 3.18 M/uL (4.7-6.1); WHITE BLOOD COUNT 8.58 K/uL (4.8-10.8)
[2016-07-04 07:12] LABS: PROTHROMBIN TIME (PATIENT) 22.1 SECONDS (9.0-12.0)
[2016-07-04 07:42] LABS: COMPLETE YES; ECHINOCYTES 1+
[2016-07-04 07:43] LABS: BUN/CREATININE RATIO 20.9 (10-20); CALCIUM 8.2 mg/dl (8.5-10.1); POTASSIUM 4.2 mmol/L (3.5-5.1)
[2016-07-04 07:45] VITALS: BP 162/85; PULSE 84; TEMP 37.1; O2SAT 92
[2016-07-04] MEDS ORDERED: INSULIN GLARGINE SOLOSTAR 100 UNITS/ML 3 ML PEN SC SCH ×2 (08:00→20:00)
[2016-07-04] MEDS: MULTIVITAMIN TAB PO SCH (08:30)
[2016-07-04] MEDS: CARVEDILOL 3.125 MG TAB PO SCH ×2 (08:30→22:07)
[2016-07-04] MEDS ORDERED: INSULIN GLARGINE SOLOSTAR 100 UNITS/ML 3 ML PEN SC ONE (08:30)
[2016-07-04] MEDS: PANTOprazole SOD 40 MG TAB PO SCH ×2 (08:31→22:07)
[2016-07-04] MEDS: ASPIRIN 81 MG CHEW PO SCH (08:31)
[2016-07-04] MEDS: INSULIN ASPART 100 UNITS/ML 3 ML PEN SC SCH ×4 (08:32→22:00)
[2016-07-04 11:55] LABS: ESTIMATED AVERAGE GLUCOSE 209 mg/dl; HA1C FLAG Normal (Normal)
--- NOTE | 2016-07-04 14:27 | Pharmacy Progress Note ---
Glycemic Control Intl Consult Date of Service July 04, 2016. Scope Glycemic Pharmacist consulted by Dr Akers on 07/03/16 for glycemic control and to write orders per [facility] inpatient glycemic control protocol Objective Weight (Kilograms): 125.200 Accuchecks BSG (last 24hrs): Test 07/03/16 11:29 07/03/16 16:46 07/03/16 20:17 07/04/16 06:48 Bedside Glucose 182 mg/dl (70-99) 277 mg/dl (70-99) 259 mg/dl (70-99) Random Glucose 199 mg/dl (70-99) Test 07/04/16 07:41 Bedside Glucose 222 mg/dl (70-99) Laboratory Data (last 24hrs) Test 07/04/16 06:48 Anion Gap 8.0 mmol/L BUN/Creatinine Ratio 20.9 Blood Urea Nitrogen 42 mg/dl Creatinine 2.00 mg/dl Potassium Level 4.2 mmol/L Sodium Level 140 mmol/L White Blood Count 8.58 K/uL Red Blood Count 3.18 M/uL Hemoglobin 8.8 g/dL Hematocrit 27.8 % Mean Corpuscular Volume 87.4 fL Mean Corpuscular Hemoglobin 27.7 pg Mean Corpuscular Hemoglobin Concent 31.7 g/dl Platelet Count 142 K/uL Mean Platelet Volume 9.1 fL Neutrophils (%) (Auto) 78.9 % Lymphocytes (%) (Auto) 9.6 % Monocytes (%) (Auto) 7.5 % Eosinophils (%) (Auto) 3.7 % Basophils (%) (Auto) 0.2 % Neutrophils # (Auto) 6.77 K/uL Lymphocytes # (Auto) 0.82 K/uL Monocytes # (Auto) 0.64 K/uL Eosinophils # (Auto) 0.32 K/uL Basophils # (Auto) 0.02 K/uL Recent Pertinent Medications Outpatient Anti-diabetic Regimen: * Novolog 70/30 55 units twice daily * A1c = 7.4 % 04/07/16 The patient is currently receiving: * Basal insulin: Lantus 5 units every 12 hours * Correctional Insulin: Novolog Correction per scale ACHS Goal Range: Low 140 mg/dL - High 180 mg/dL Correction Factor: 25 mg/dL/unit * Prandial insulin: Per carb ratio of 1 unit per --- grams CHO consumed Risk Factors for Insulin Resistance: * IVF: patient does have YAMEL * Diet: type 2 diabetic diet Assessment & Plan ASSESSMENT: * ADA & AACE recommend a goal blood sugar range 140-180 mg/dl for the majority of critically ill & non-critically ill patients. However, more stringent targets may be selected in individual cases. Will utilize more stringent goal of 110-140mg/dl based on patient age & comorbidities. Additionally, tighter glycemic control is warranted to facilitate wound/infection healing. * Mr Macedo was admitted 06/30/16 for an YAMEL from N/V/D. He is well known to the glycemic service. Patient was hypoglycemic on admission with last known administration of insulin being 55 units of Novolog 70/30 on 06/30 @0830 AM. Patient was started on Lantus 5 units BID on 07/01/16 with Novolog correction factor of 25 mg/dL/unit. * Pharmacy was consulted on 07/03/16. Patient received 18 units of insulin 07/02 and 19 units 07/03. Blood sugars ranged from 146 mg/dL to 282 mg/dL. Patient continues to have some kidney dysfunction. Previous admissions show patient tolerating ~40 units/day up to 60 units/day. Restarted Novolog correctional insulin to weight-based stress of 2. This was proven to work in previous admission. Also patient typically required around 30 units of basal insulin per day. Therefore gave patient Lantus 20 units this morning as he is relatively basal deficient. Initiated a scale for Lantus this evening because the patient' s kidney injury may increase insulin sensitivity. Also ordered A1C. PLAN FOR INPATIENT GLYCEMIC CONTROL: * Basal insulin with LANTUS 0-20 units SQ BID (0 units if BSG < 120 mg/dL; 10 units if BSG between 120 mg/dL and 180 mg/dL; 20 units is BSG 180 mg/dL or greater) * Correctional Insulin with NOVOLOG per scale ACHS or Q6hrs * Goal Range: Low 120 mg/dL - High 150 mg/dL * Correction Factor: 20 mg/dL/unit * Nutritional / Prandial insulin per carb ratio of 1 unit per 6 grams CHO consumed * Please note that the plan above was derived based on current level of insulin resistance and hospital stress. These recommendations are appropriate for inpatient admission only. Plan of care upon discharge will need to be reassessed to avoid potential outpatient hypo/hyperglycemia. Thank you.
[2016-07-04] MEDS ORDERED: PHARMACY GLYCEMIC MGMT CONSULT STA (14:42)
--- NOTE | 2016-07-04 14:47 | Progress Note ---
Medicine Progress Note Date & Time of Visit: July 04, 2016 at 14:24. Subjective reports pain is improved in ankles and calves but still persists in R knee he is clinically improved today denies n/v/d tolerating PO reports BM yesterday Objective Last 8 Hrs Date Time Temp Pulse Resp B/P Pulse Ox O2 Delivery O2 Flow Rate FiO2 07/04/16 08:45 Room Air 07/04/16 07:45 37.1 84 17 162/85 92 Room Air Physical Exam: GEN: obese, in no acute distress, alert and appropriate, in good spirits. HEENT: NC/AT, pupils are equal and round, normal sclerae, MMM CARDIO: reg rate, S1/2 heard without m/g/r, no JVD LUNGS: CTA bilaterally, no crackles, rales or wheezes, good diaphragmatic excursion ABD: soft, non-tender, non-distended, no rebound or guarding EXTREMITY: RP and DP palpable 2+ bilat, dark purple SQ blood on L fuller, bilateral ulcerations where KAITLIN hose ended just below knees, Extremities are WWP , petechiae present on RLE NEURO: CN 2-12 grossly intact MUSC: generalized weakness but no gross focal deficits. SKIN: warm and dry and as above. Laboratory Results: Last 24 Hours Test 07/03/16 16:46 07/03/16 20:17 07/04/16 06:48 07/04/16 07:41 Bedside Glucose 277 mg/dl 259 mg/dl 222 mg/dl White Blood Count 8.58 K/uL Red Blood Count 3.18 M/uL Hemoglobin 8.8 g/dL Hematocrit 27.8 % Mean Corpuscular Volume 87.4 fL Mean Corpuscular Hemoglobin 27.7 pg Mean Corpuscular Hemoglobin Concent 31.7 g/dl Platelet Count 142 K/uL Mean Platelet Volume 9.1 fL Neutrophils (%) (Auto) 78.9 % Lymphocytes (%) (Auto) 9.6 % Monocytes (%) (Auto) 7.5 % Eosinophils (%) (Auto) 3.7 % Basophils (%) (Auto) 0.2 % Neutrophils # (Auto) 6.77 K/uL Lymphocytes # (Auto) 0.82 K/uL Monocytes # (Auto) 0.64 K/uL Eosinophils # (Auto) 0.32 K/uL Basophils # (Auto) 0.02 K/uL RDW Standard Deviation 57.0 fL RDW Coefficient of Variation 17.7 % Immature Granulocyte % (Auto) 0.1 % Immature Granulocyte # (Auto) 0.01 K/uL Echinocytes 1+ Prothrombin Time 22.1 SECONDS Prothromb Time International Ratio 2.0 Sodium Level 140 mmol/L Potassium Level 4.2 mmol/L Chloride Level 106 mmol/L Carbon Dioxide Level 26 mmol/L Anion Gap 8.0 mmol/L Blood Urea Nitrogen 42 mg/dl Creatinine 2.00 mg/dl Est Creatinine Clear Calc Drug Dose 42.0 ml/min Estimated GFR () 35.5 Estimated GFR (Non- 30.6 BUN/Creatinine Ratio 20.9 Random Glucose 199 mg/dl Estimated Average Glucose 209 mg/dl Hemoglobin A1c 8.9 % Calcium Level 8.2 mg/dl Test 07/04/16 11:26 Bedside Glucose 210 mg/dl Assessment & Plan 80 yo M presents from [facility] with nausea, vomiting and diarrhea for the past week with YAMEL. Recently discharged one week ago after being admitted for heart failure exacerbation. N/V/D not been present since admission and he is tolerating solid foods well. YAMEL had resolved until Indomethacin added for gout flare -mild expected elevation in creat to 1.7 then 2.0 this am. Nephro following and is stopping Indocin now. 1. Acute renal failure on chronic renal insufficiency 2/2 dehydration causing diarrhea. Volume status is difficult to determine in this patient, however, his lungs are clear and he has chronically edematous legs so appears hypo to euvolemic with a low effective arterial volume. Lasix was stopped on admission as well as Lisinopril. Albumin and IVF were given yesterday with some improvement in creat from 2.6 to 2.0 today (baseline 1.5). Per Nephro, will give some more albumin to him to help raise oncotic pressure in the intravascular space and decrease third spacing. Will also add TEDs +/- SCDs. Repeat PRP in am. It appears that the diarrhea and vomiting has not been ongoing today. 07/02: euvolemic today with kidney function back to baseline. Per Nephro, continue Lasix BID 07/03: mildly elevated creat with addition of Indocin for gout flare. hold Lasix and lisinopril while on this med 1-2 more days. 07/04: creat increase to 2.0, Indocin stopped. Cont to hold Lasix and lisinopril 2. Gouty arthritis in R knee that is crystal-proven on last admission along with presumed gouty arthritis of the feet bilaterally. The patient cannot localize an area of pain in his legs and reports pain in calves, shins, ankles, knees and toes bilaterally. He has been reportedly ambulatory at [facility] over the past week so less concerned for DVT at this time, and the fact that he is tender all over with no evidence of thrombotic syndrome makes this less likely. Will check vit D level as patient has recently been on high dose supplementation, and low D can cause some pain like this. Pt received an intraarticular injection of steroids two weeks ago and was sent home on a 5 day prednisone burst. There is no evidence of a gout attack at this time (i.e-no swollen or painful joints to the touch and no erythema present). The patient also states that he typically takes Quincy and has not been given this --I see it was stopped at discharge from last admission about one week ago. Will restart his Quincy now and increase the frequency temporarily as part of his issue may be narcotic withdrawal. Hold any steorids for now. Cont steroid injections as outpatient [id number]. Per Dr. Raza during last hospitalization, patient is not a great surgical candidate. 07/02: pain in knees, ankles and calves is severe today. Quincy helped some but not enough. With recent hospitalization will rule out DVT, vit D level pending as low vit D may be contributing, and will initiate some Indocin for gout flare. With Indocin on board will hold Lasix. Of note, he states that the oral prednisone he took over the last week did not help his joint pain. I believe his leg pain is likely 2/2 statin use, however. Will hold this for now and Dr. Ryder can rechallenge him as she sees fit as outpatient. 07/03: pain is improved. Cont Indocin, hold Lasix and lisinopril. Vit D level is WNL. Cont Quincy PRN, TEDs, and SCDs. 07/04: pain improved overall, but there is still pain in the R knee. Cont Quincy PRN, but he is not asking for medications at this time. 3. 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 Stopped Lipitor now and will obtain CK in am. Treat for gout simultaneously as above. 4. Nausea diarrhea and vomiting 2/2 acute gastroenteritis of uncertain etiology -resolved. 5. Anemia -recently decreased from Hb 12.8 in Jan 2016 to current levels of 9.0. Poss ACD vs CKD? Defer to Nephrology and outpatient PCP for continued workup/treatment. 6. Chronic systolic heart failure secondary to ischemic cardiomyopathy- clinically appears euvolemic to dry. Hold Lasix in setting of Indocin use for gout flare. Cont ASA, statin, and Coreg. Cont to hold Lisinopril in setting of Indocin use. 7. Coronary artery disease status post coronary artery bypass grafting-as above. 8. AFib, rate controlled. INR therapeutic. Cont coumadin per home dosing. 9. 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 I see no reason to continue him on this for nausea. This was stopped. PPI is BID as outpatient so will cont this here. 10. DM type 2, insulin requiring at home -uncontrolled. Adding Lantus 10 Units BID and request placed for pharmacy glycemic consult. 11. Stag II Decub on buttocks-was present on admission. Blister wound present on R heel. Dr Ignacio was consulted for this tomorrow. 07/04: pressure sores seen at knees bilaterally per wound care; this is for TEDs that are too tight. TEDs were taken off and larger size needs to be utilized if they are put back on with care to avoid these wounds. Apprec wound care following. DVT proph-coumadin Full Code Dispo- to [facility] in 1-2 days once YAMEL improves. Monica Akers DO [facility] Hospitalist Consultants: Nephro, Wound care Current Inpatient Medications: Current Inpatient Medications Medications (Trade) Dose Ordered Sig/Aileen Route Start Time Stop Time Status Last Admin Dose Admin Acetaminophen (Tylenol Tab) 650 mg Q4H PRN PO 06/30/16 19:45 07/30/16 19:44 07/02/16 15:05 650 MG Glucose (Glucose 40% Gel) 15-30 GRAMS 15 GRAMS... UD PRN PO 06/30/16 19:45 07/30/16 19:44 06/30/16 23:05 15 GM Glucose (Glucose Chew Tab) 4-8 Tablets 4 Tabl... UD PRN PO 06/30/16 19:45 07/30/16 19:44 Dextrose (Dextrose 50% 50ML Syringe) 25-50ML OF 50% DW IV FOR... UD PRN IV 06/30/16 19:45 07/30/16 19:44 Glucagon (Glucagon Inj) 1 mg UD PRN SQ 06/30/16 19:45 07/30/16 19:44 Hydromorphone HCl (Dilaudid Inj) 0.5 mg Q3H PRN IV 06/30/16 19:45 07/14/16 19:44 Tramadol HCl (Ultram Tab) not relieved ... Q6H PRN PO 06/30/16 19:45 07/30/16 19:44 07/01/16 01:01 50 MG Ondansetron HCl 4 mg 4 mg Q6H PRN IV 06/30/16 19:45 07/30/16 19:44 Promethazine HCl/ Sodium Chloride (Phenergan Inj/ Nss 50ml) 50.5 ml @ 204 mls/hr Q6H PRN IV 06/30/16 19:45 07/30/16 19:44 Aspirin (Aspirin Chew) 81 mg QAM PO 07/01/16 08:00 07/31/16 08:59 07/04/16 08:31 81 MG Carvedilol (Coreg Tab) 3.125 mg BID PO 06/30/16 21:00 07/30/16 20:59 07/04/16 08:30 3.125 MG Mirtazapine (Remeron Tab) 15 mg HS PRN PO 06/30/16 19:45 07/30/16 19:44 Multivitamins (Multivitamin Tab) 1 tab DAILY PO 07/01/16 08:00 07/31/16 08:59 07/04/16 08:30 1 TAB Trazodone HCl (Desyrel Tab) 25 mg HS PO 06/30/16 21:00 07/30/16 20:59 07/03/16 23:37 25 MG Pantoprazole Sodium (Protonix Tab) 40 mg BID PO 06/30/16 21:00 07/30/16 20:59 07/04/16 08:31 40 MG Warfarin Sodium (Coumadin Tab) 5 mg MoFr@1600 PO 07/01/16 16:00 07/31/16 15:59 07/01/16 17:29 5 MG Warfarin Sodium (Coumadin Tab) 10 mg SuTuWeThSa@1600 PO 07/02/16 16:00 08/01/16 15:59 07/03/16 18:30 10 MG Insulin Aspart (novoLOG ASPART) SLIDING SCALE If C... ACHS SC 07/01/16 22:00 07/31/16 21:59 07/04/16 12:32 8 UNITS Acetaminophen/ Hydrocodone Bitart ([place] 5/325 Tab) 1 tab Q8H PRN PO 07/02/16 12:43 07/16/16 12:42 07/03/16 20:37 1 TAB Miscellaneous Information (Consult Glycemic Management Pharmacy) 1 ea UD PRN N/A 07/03/16 18:00 08/02/16 17:59 Insulin Glargine (Lantus Solostar Pen) SEE PROTOCOL TEXT BID SC 07/04/16 20:00 08/03/16 19:59
[2016-07-04 15:46] VITALS: BP 117/75; PULSE 72; TEMP 36.8; O2SAT 94
[2016-07-04] MEDS: WARFARIN SOD 5 MG TAB PO SCH (16:02)
--- NOTE | 2016-07-04 16:08 | CONSULTATION REPORT ---
DATE OF CONSULTATION: 07/04/2016 CHIEF COMPLAINT: Ulceration to the right heel and buttock region. HISTORY OF PRESENT ILLNESS: The patient was recently admitted to [facility] 4 days prior for reevaluation of renal failure. The patient states that he has also been having a significant amount of difficulty with his gouty arthritis and has currently been at a retirement facility for [facility]. The patient today denies any significant increased pain in the extremity. The patient states that he has had an ulceration on the heel area for an unknown period of time as well as ulcerations in the buttocks region which he attributes to a bout of diarrhea lasting approximately 10 days over the past few weeks. The patient denies any fever, chills or night sweats. The patient denies any chest pain, shortness of breath, abdominal discomfort, nausea or vomiting. The patient denies any other systemic complaints at this time. PAST MEDICAL HISTORY: Positive for congestive heart failure, cardiomyopathy, coronary artery disease, hypertension, hyperlipidemia, atrial fibrillation, diabetes insulin-dependent, chronic anemia. PAST SURGICAL HISTORY: The patient has had a prior surgical history of coronary artery bypass graft surgery. SOCIAL HISTORY: The patient as stated currently staying in a retirement facility. MEDICATIONS: Noted in nursing notes were reviewed. ALLERGIES: None. REVIEW OF SYSTEMS: Ten systems were reviewed in their entirety and positive findings noted in the chief complaint and history of present illness. PHYSICAL EXAMINATION: VITAL SIGNS: Noted and found to be unremarkable. The patient is afebrile. GENERAL: The patient is lying in hospital bed, in no acute distress, alert and cooperative throughout the examination. HEENT: Pupils are equal and reactive to light. Sclerae clear. NECK: Supple. CHEST: Heart and lungs clear to auscultation. EXTREMITIES: Reveal the presence of an ulceration on the right heel region with elevation of epidermis and central deep tissue injury evolving. There is no active drainage or periwound erythema. No edema noted. Pulses are present in the foot. This site measures 5 x 5.8 x 0.1 cm following debridement. BACK: There are also ulcerations in the sacral and right buttocks region. There is no evidence of any central slough. There is no active drainage or periwound erythema. Sacral ulceration measures 2.2 x 0.4 x 0.1. There are 2 small ulcerations on the right buttock region measuring 0.6 x 0.4 x 0.1 and 0.3 x 0.3 x 0.1 cm. NEUROLOGIC: The patient is alert and oriented x3. No focal deficits noted. IMPRESSION: 1. Stage II pressure ulcer, right heel, with possible early deep tissue injury centrally. 2. Stage II pressure ulcer, sacral region. 3. Stage II pressure ulceration to the right buttock region. Debridement was indicated in the right heel and the surrounding epidermis that was removed with scissors and forceps. No significant bleeding occurred. All sites will be dressed with Aquacel and Optifoam, changed on a daily basis. The patient will also have waffle boots applied. The patient will be turned on a regular basis and further pressure precautions will be taken. The patient will be reevaluated as needed during the patient's hospitalization and will be followed on an outpatient basis upon discharge. This represented a nonexcisional debridement of approximately 28 square cm.
--- NOTE | 2016-07-04 19:09 | Nephrology Progress Note ---
Nephrology Progress Note Date of Service: July 04, 2016. Subjective persistent R knee pain, where he had aspirate prove gout last admission reported earlier in day but improved by time I saw him and he states less/ much better leg pain past 3 days. no n/v; voiding w/o issue; some edema Objective Date Time Temp Pulse Resp B/P Pulse Ox O2 Delivery O2 Flow Rate FiO2 07/04/16 15:46 36.8 72 18 117/75 94 Room Air 07/04/16 08:45 Room Air 07/04/16 07:45 37.1 84 17 162/85 92 Room Air 07/04/16 00:12 36.7 75 18 124/71 94 Room Air 07/04/16 00:00 Room Air 07/03/16 20:00 Room Air Physical Exam: General-aaox3, on RA, maneuvers w/ effort for exam Eyes-no scleral icterus ENT-mmm Neck-supple Lungs-clear Heart-today RRR Abdomen-bs+ s/nt/nd, no garsia Extremities-1+ PEDAL edema Neuro-reno, fluent speech Current Inpatient Medications Medications (Trade) Dose Ordered Sig/Aileen Route Start Time Stop Time Status Last Admin Dose Admin Acetaminophen (Tylenol Tab) 650 mg Q4H PRN PO 06/30/16 19:45 07/30/16 19:44 07/02/16 15:05 650 MG Glucose (Glucose 40% Gel) 15-30 GRAMS 15 GRAMS... UD PRN PO 06/30/16 19:45 07/30/16 19:44 06/30/16 23:05 15 GM Glucose (Glucose Chew Tab) 4-8 Tablets 4 Tabl... UD PRN PO 06/30/16 19:45 07/30/16 19:44 Dextrose (Dextrose 50% 50ML Syringe) 25-50ML OF 50% DW IV FOR... UD PRN IV 06/30/16 19:45 07/30/16 19:44 Glucagon (Glucagon Inj) 1 mg UD PRN SQ 06/30/16 19:45 07/30/16 19:44 Hydromorphone HCl (Dilaudid Inj) 0.5 mg Q3H PRN IV 06/30/16 19:45 07/14/16 19:44 Tramadol HCl (Ultram Tab) not relieved ... Q6H PRN PO 06/30/16 19:45 07/30/16 19:44 07/01/16 01:01 50 MG Ondansetron HCl (Zofran Inj) 4 mg Q6H PRN IV 06/30/16 19:45 07/30/16 19:44 Aspirin (Aspirin Chew) 81 mg QAM PO 07/01/16 08:00 07/31/16 08:59 07/04/16 08:31 81 MG Carvedilol (Coreg Tab) 3.125 mg BID PO 06/30/16 21:00 07/30/16 20:59 07/04/16 08:30 3.125 MG Mirtazapine (Remeron Tab) 15 mg HS PRN PO 06/30/16 19:45 07/30/16 19:44 Multivitamins (Multivitamin Tab) 1 tab DAILY PO 07/01/16 08:00 07/31/16 08:59 07/04/16 08:30 1 TAB Trazodone HCl (Desyrel Tab) 25 mg HS PO 06/30/16 21:00 07/30/16 20:59 07/03/16 23:37 25 MG Pantoprazole Sodium (Protonix Tab) 40 mg BID PO 06/30/16 21:00 07/30/16 20:59 07/04/16 08:31 40 MG Warfarin Sodium (Coumadin Tab) 5 mg MoFr@1600 PO 07/01/16 16:00 07/31/16 15:59 07/04/16 16:02 5 MG Warfarin Sodium (Coumadin Tab) 10 mg SuTuWeThSa@1600 PO 07/02/16 16:00 08/01/16 15:59 07/03/16 18:30 10 MG Insulin Aspart (novoLOG ASPART) SLIDING SCALE If C... ACHS SC 07/01/16 22:00 07/31/16 21:59 07/04/16 17:36 6 UNITS Acetaminophen/ Hydrocodone Bitart ([place] 5/325 Tab) 1 tab Q8H PRN PO 07/02/16 12:43 07/16/16 12:42 07/03/16 20:37 1 TAB Miscellaneous Information (Consult Glycemic Management Pharmacy) 1 ea UD PRN N/A 07/03/16 18:00 08/02/16 17:59 Insulin Glargine (Lantus Solostar Pen) SEE PROTOCOL TEXT BID SC 07/04/16 20:00 08/03/16 20:00 Last 24 Hours Test 07/03/16 20:17 07/04/16 06:48 07/04/16 07:41 07/04/16 11:26 Bedside Glucose 259 mg/dl 222 mg/dl 210 mg/dl White Blood Count 8.58 K/uL Red Blood Count 3.18 M/uL Hemoglobin 8.8 g/dL Hematocrit 27.8 % Mean Corpuscular Volume 87.4 fL Mean Corpuscular Hemoglobin 27.7 pg Mean Corpuscular Hemoglobin Concent 31.7 g/dl Platelet Count 142 K/uL Mean Platelet Volume 9.1 fL Neutrophils (%) (Auto) 78.9 % Lymphocytes (%) (Auto) 9.6 % Monocytes (%) (Auto) 7.5 % Eosinophils (%) (Auto) 3.7 % Basophils (%) (Auto) 0.2 % Neutrophils # (Auto) 6.77 K/uL Lymphocytes # (Auto) 0.82 K/uL Monocytes # (Auto) 0.64 K/uL Eosinophils # (Auto) 0.32 K/uL Basophils # (Auto) 0.02 K/uL RDW Standard Deviation 57.0 fL RDW Coefficient of Variation 17.7 % Immature Granulocyte % (Auto) 0.1 % Immature Granulocyte # (Auto) 0.01 K/uL Echinocytes 1+ Prothrombin Time 22.1 SECONDS Prothromb Time International Ratio 2.0 Sodium Level 140 mmol/L Potassium Level 4.2 mmol/L Chloride Level 106 mmol/L Carbon Dioxide Level 26 mmol/L Anion Gap 8.0 mmol/L Blood Urea Nitrogen 42 mg/dl Creatinine 2.00 mg/dl Est Creatinine Clear Calc Drug Dose 42.0 ml/min Estimated GFR () 35.5 Estimated GFR (Non- 30.6 BUN/Creatinine Ratio 20.9 Random Glucose 199 mg/dl Estimated Average Glucose 209 mg/dl Hemoglobin A1c 8.9 % Calcium Level 8.2 mg/dl Test 07/04/16 16:43 Bedside Glucose 95 mg/dl Assessment & Plan 80 yo male seen for follow up of ana m and worsening edema. diuretics on hold and was given fluids initially and then albumin. creatinine improved to baseline however was having worsening leg pains. started on indomethacin 07/02 and pain is getting better. both legs causing pain up to his knees. 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 creatinine trending back up. stopped indomethacin today; diuretics remain on hold and he appears to be tolerating being off of these for now. if creatinine continues to worsen, may consider restarting the albumin. leg pain indomethacin stopped d/t worsening renal function. Dr Ghotra concerned for statin myopathy and ck to be checked Appreciate consult; care coordinated w/ dr ghotra.
[2016-07-04 22:05] VITALS: BP 139/74; PULSE 80
[2016-07-04] MEDS: TRAZODONE HCL 50 MG TAB PO SCH (22:08)
[2016-07-04] MEDS: INSULIN GLARGINE SOLOSTAR 100 UNITS/ML 3 ML PEN SC SCH (22:13)
[2016-07-05 00:02] VITALS: BP 114/69; PULSE 70; TEMP 36.6; O2SAT 95
[2016-07-05 07:16] LABS: INR 2.3 (0.9-1.1); PROTHROMBIN TIME (PATIENT) 25.8 SECONDS (9.0-12.0)
[2016-07-05 07:39] LABS: BUN/CREATININE RATIO 24.8 (10-20); CALCIUM 8.3 mg/dl (8.5-10.1); CREATININE 1.5 mg/dl (0.60-1.40)
[2016-07-05 07:41] VITALS: BP 138/88; PULSE 90; TEMP 37; O2SAT 93
[2016-07-05] MEDS: PANTOprazole SOD 40 MG TAB PO SCH (08:09)
[2016-07-05] MEDS: MULTIVITAMIN TAB PO SCH (08:09)
[2016-07-05] MEDS: ASPIRIN 81 MG CHEW PO SCH (08:09)
[2016-07-05] MEDS: CARVEDILOL 3.125 MG TAB PO SCH (08:09)
[2016-07-05] MEDS: INSULIN ASPART 100 UNITS/ML 3 ML PEN SC SCH ×2 (08:39→12:34)
[2016-07-05] MEDS: INSULIN GLARGINE SOLOSTAR 100 UNITS/ML 3 ML PEN SC SCH (08:40)
--- NOTE | 2016-07-05 09:03 | Pharmacy Progress Note ---
Glycemic Control: Progress Nt Date of Service July 05, 2016. Scope Glycemic Pharmacist consulted by Dr Akers on 07/03/16 for glycemic control and to write orders per [facility] inpatient glycemic control protocol. Objective Accuchecks BSG (last 24hrs): Test 07/04/16 11:26 07/04/16 16:43 07/04/16 20:06 07/05/16 06:43 Bedside Glucose 210 mg/dl (70-99) 95 mg/dl (70-99) 132 mg/dl (70-99) Random Glucose 128 mg/dl (70-99) Test 07/05/16 07:52 Bedside Glucose 136 mg/dl (70-99) Laboratory Data (last 24hrs) Test 07/05/16 06:43 Anion Gap 8.0 mmol/L BUN/Creatinine Ratio 24.8 Blood Urea Nitrogen 37 mg/dl Creatinine 1.50 mg/dl Potassium Level 4.0 mmol/L Sodium Level 143 mmol/L HbA1c: Test 07/04/16 06:48 Hemoglobin A1c 8.9 % (4.5-5.6) H Recent Pertinent Medications Outpatient Anti-diabetic Regimen: * Novolog 70/30 55 units twice daily The patient is currently receiving: * Basal insulin: Lantus 0-20 units every 12 hours (0 if blood sugar < 120 mg/dL; 10 units if blood sugar 120-180 mg/dL; 20 units if blood sugar greater than 180 mg/dL) * Correctional Insulin: Novolog Correction per scale ACHS Goal Range: Low 120 mg/dL - High 150 mg/dL Correction Factor: 20 mg/dL/unit * Prandial insulin: Per carb ratio of 1 unit per 6 grams CHO consumed Risk Factors for Insulin Resistance: * IVF: patient does have YAMEL which is resolving * Diet: type 2 diabetic diet Assessment & Plan ASSESSMENT: * ADA & AACE recommend a goal blood sugar range 140-180 mg/dl for the majority of critically ill & non-critically ill patients. However, more stringent targets may be selected in individual cases. Will utilize more stringent goal of 110-140mg/dl based on patient age & comorbidities. Additionally, tighter glycemic control is warranted to facilitate wound/infection healing. * Mr Macedo was admitted 06/30/16 for an YAMEL from N/V/D. He is well known to the glycemic service. Patient was hypoglycemic on admission with last known administration of insulin being 55 units of Novolog 70/30 on 06/30 @0830 AM. Patient was started on Lantus 5 units BID on 07/01/16 with Novolog correction factor of 25 mg/dL/unit. * Pharmacy was consulted on 07/03/16. Patient received 18 units of insulin 07/02 and 19 units 07/03. Blood sugars ranged from 146 mg/dL to 282 mg/dL. Patient continues to have some kidney dysfunction. Previous admissions show patient tolerating ~40 units/day up to 60 units/day. Restarted Novolog correctional insulin to weight-based stress of 2. This was proven to work in previous admission. Also patient typically required around 30 units of basal insulin per day. Therefore gave patient Lantus 20 units this morning as he is relatively basal deficient. Initiated a scale for Lantus this evening because the patient' s kidney injury may increase insulin sensitivity. 07/05/16 * Mr Macedo required 58 units of insulin yesterday (30 of which is basal insulin). Blood sugars ranged from 95-222 mg/dL. His fasting this morning was 136 mg/dL. Previous admission data indicates that patient does well utilizing a Lantus scale so will continue it. * Will continue Novolog scale as previous admission data demonstrated that this works well as well. PLAN FOR INPATIENT GLYCEMIC CONTROL: * Basal insulin with LANTUS 0-20 units SQ BID (0 units if BSG < 120 mg/dL; 10 units if BSG between 120 mg/dL and 180 mg/dL; 20 units is BSG 180 mg/dL or greater) * Correctional Insulin with NOVOLOG per scale ACHS or Q6hrs * Goal Range: Low 120 mg/dL - High 150 mg/dL * Correction Factor: 20 mg/dL/unit * Nutritional / Prandial insulin per carb ratio of 1 unit per 6 grams CHO consumed RECOMMENDATIONS FOR DISCHARGE * Mr Macedo's A1C increased from 7.4% to 8.9% this year (Mar to June). This last A1C is above his goal. I would recommend working with patient's primary care doctor at [facility] to maximize his insulin regimen. Based upon insurance, patient may be a candidate for Lantus-Novolog which would provide easier to control blood sugars compared to a mixed insulin. * Please note that the plan above was derived based on current level of insulin resistance and hospital stress. These recommendations are appropriate for inpatient admission only. Plan of care upon discharge will need to be reassessed to avoid potential outpatient hypo/hyperglycemia. Thank you.
[2016-07-05 10:00] VITALS: Ht 190.5 cm; Wt 125.2 kg
[2016-07-05 10:31] VITALS: BP 147/84; PULSE 107; O2SAT 95
--- NOTE | 2016-07-05 11:13 | Discharge Instructions ---
Discharge Instructions Date of Service July 05, 2016. Admission Reason for Admission: AFR Discharge Discharge Diagnosis / Problem: Acute Gastroenteritis-resolved, Stag II wounds on buttocks and R heel. Discharge Goals Goal(s): Prevent Disease Progression Activity Recommendations Activity Limitations: per Instructions/Follow-up section . Instructions / Follow-Up Instructions / Follow-Up Please take all medications as instructed above. You will need a follow-up with your primary care physician within one week to evaluate your kidney function and re-evaluate your gout. In the meantime your allopurinol was stopped. This may be resumed when it is determined you are no longer having an acute gout flare. Recommend BASIC METABOLIC PANEL in one week with results sent to primary care physician. Cont monitoring INR while on Coumadin as you were before. Cont monitoring daily weights while on Lasix OK to use KAITLIN hose intermittently to help with swelling in your legs. Follow-up with [facility] for buttock, ankle and heel wounds. It was a pleasure taking care of you! Call if you have any questions or problems. You can reach a [facility] hospitalist on duty at [facility] 24 hours a day by calling [phone]. Take care of yourself. Monica Akers DO [facility] Hospitalist Current Hospital Diet Patient's current hospital diet: Low Lactose Diet, Diabetes Type 2 Diet Discharge Diet Recommended Diet: Diabetes Type 2 Diet, Low Lactose Diet Procedures Procedures Performed: Wound Debridement 07/04 Pending Studies Studies pending at discharge: no Laboratory Results Hemoglobin A1c Test 07/04/16 06:48 Range/Units Estimated Average Glucose 209 mg/dl Hemoglobin A1c 8.9 H 4.5-5.6 % Medical Emergencies . Who to Call and When: Medical Emergencies: If at any time you feel your situation is an emergency, please call 911 immediately. . Non-Emergent Contact Non-Emergency issues call your: Primary Care Provider . . "Provider Documentation" section prepared by Monica Akers. . VTE Core Measure Inpt VTE Proph given/why not?: Warfarin (Coumadin)
--- NOTE | 2016-07-05 11:28 | Discharge Summary ---
Discharge Summary Date of Service July 05, 2016. 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 Consultations: Nephro, Wound care Pending Studies/Follow-Up: see instructions below Medication Reconciliation Continued Medications: Ascorbic Acid (Vitamin C) 500 Mg Tab 500 MG PO BID Aspirin (Aspirin Chewable) 81 Mg Chew 81 MG PO QAM for 30 Days HOLD FOR NOW, RESUME SOON LOWER ABDOMINAL HEMATOMA SUBSIDES Carvedilol (Coreg) 12.5 Mg Tab 12.5 MG PO BID, TAB TAKES 3 TABS IN AM TAKES 2 TABS IN PM Ergocalciferol (Vitamin D) 50,000 Interunit Cap 73715 INTER.UNIT PO MONTHLY Furosemide (Lasix) 40 Mg Tab 40 MG PO QPM, TAB Furosemide (Lasix) 80 Mg Tab 80 MG PO QAM, TAB Hydrocodone/Acetaminophen 5MG/325MG (Darwin 5MG/325MG) Tab 1 TABLET PO TID PRN for Pain, TAB Insulin Aspart 70/30 (Novolog Mix 70/30) Susp 55 UNITS SC BID for 30 Days, BTL TAKES AC AND HS Lisinopril (Zestril) 40 Mg Tab 40 MG PO QAM, TAB Miconazole Nitrate (Desenex Shake Powder) 43 Appln/43 Gm Powd 1 APPLN EXT PRN PRN for Affected Skin Folds for 15 Days Mirtazapine (Remeron) 15 Mg Tab 15 MG PO HS, #30 Multivitamin (Multivitamin) Tab 1 TAB PO DAILY, TAB Nitroglycerin (Nitrostat) 0.4 Mg Tab 0.4 MG UT PRN PRN for Chest Pain, BTL Omeprazole (Prilosec) 20 Mg Capcr 20 MG PO BID, CAP Potassium Chloride (Klor-Con M20) 20 Meq Tabcr 40 MEQ PO QAM for 20 Days Sennosides-Docusate Sodium (Senokot S) 1 Tab Tab 1 TAB PO QAM for 15 Days, #15 TAB 2 Refills Tramadol HCl (Tramadol HCl) 50 Mg Tab 50 MG PO Q6H PRN for Pain, #10 TAB 0 Refills Trazodone Hcl (Trazodone) 50 Mg Tab 50 MG PO HS for 15 Days, TAB MAY INCREASE UP TO 3TABS NEEDED FOR SLEEP Warfarin Sodium (Coumadin) 10 Mg Tab 10 MG PO QPM for 30 Days, TAB TAKES .5 TAB ON MONDAY AND FRIDAYS TAKES 10MG ALL OTHER DAYS DIRECTED (HOLD FOR NOW, RESUME SOON HEMATOMA ON THE LOWER ABDOMEN SUBSIDES) Discontinued Medications: Allopurinol (Zyloprim) 100 Mg Tab 200 MG PO DAILY, TAB Amoxicillin (Amoxicillin) 500 Mg Cap 500 MG PO TID for 11 Days, #33 CAP Atorvastatin (Lipitor) 80 Mg Tab 80 MG PO QPM, TAB Sucralfate (Carafate) 1 Gm Tab 1 GM PO QID, TAB Admission Information HPI (per Admitting provider): PRIMARY CARE PHYSICIAN: Dr. Ryder. Patient currently undergoing rehabilitation at [facility]. CHIEF COMPLAINT: Abnormal labs HISTORY OF PRESENT ILLNESS: History obtained from patient and medical records. MHx significant for chronic systolic heart failure secondary to ischemic cardiomyopathy, EF of 45%, CAD status post CABG, hypertension, hyperlipidemia, aFib on anticoagulation, DM2, insulin requiring, CRI (baseline crea 1.3-1.5), chronic anemia ( baseline hemoglobin of 8-9), sleep apnea as per records, Recent confinement about 2 weeks ago for change in mental status, attributed to ARF. Patient also found to have Enterococcus UTI. Discharged on Amoxicillin. Patient also right knee pain at that time attributed to gout, started on prednisone. In the last week, patient has been having nausea, vomiting; diarrhea sx, nonbloody, 4 times a day. No unusual abdominal discomfort, no chest pain, no shortness of breath. appetite not too good. no fever, no chills. Bilateral leg swelling. PX seen by [facility] physician in the morning. Outpatient lab work showed creatinine at 2.4. Patient sent to the Emergency Room and received IV fluids. Physical Exam (per Admitting): PHYSICAL EXAMINATION: VITAL SIGNS: Today - blood pressure was noted to be 103/52, pulse rate 71, RR 16, temperature 36.6, sats 98RA GENERAL: Obese, no respiratory distress. SKIN: pallor. HEENT: pale palp, conjunctivae, dry mucosa. NECK: Short neck. LUNGS: Decreased breath sounds. HEART: irreg ABDOMEN: Some distention, NT EXTREMITIES: Bilateral lower extremity edema noted, no tenderness NEUROLOGIC: No gross focality. Hospital Course 80 yo M presents from [facility] rehab [place] with nausea, vomiting and diarrhea for the past week with YAMEL. Recently discharged one week ago after being admitted for heart failure exacerbation and has remained euvolemic without further evidence of exacerbation. N/V/D not been present since admission and he is tolerating solid foods well. YAMEL had resolved until Indomethacin added for gout flare -mild expected elevation in creat to 1.7 then 2.0, so this was subsequently stopped after only two days. Nephrology was following case and making recommendations. On day of discharge he was afebrile and hemodynamically stable. His leg pain was greatly improved and he was sent back to [facility] in stable condition. Of note, he does have progressive anemia which will need to be followed closely by his outpatient PCP. He will need a repeat PRP in one week to ensure going back on all of his home medications did not cause any changes. He should follow-up with Wound Clinic for his wounds and Coumadin Clinic to monitor the INR. All these instructions were given in the instructions. One other note, he was underdosed on his BB up until this was realized on morning of discharge. He was subsequently given his home dose of 37.5mg prior to leaving and had a reduction in heart rate. He remained asymptomatic. 1. Acute renal failure on chronic renal insufficiency 2/2 dehydration causing diarrhea. Volume status is difficult to determine in this patient, however, his lungs are clear and he has chronically edematous legs so appears hypo to euvolemic with a low effective arterial volume. Lasix was stopped on admission as well as Lisinopril. Albumin and IVF were given yesterday with some improvement in creat from 2.6 to 2.0 today (baseline 1.5). Per Nephro, will give some more albumin to him to help raise oncotic pressure in the intravascular space and decrease third spacing. Will also add TEDs +/- SCDs. Repeat PRP in am. It appears that the diarrhea and vomiting has not been ongoing today. 07/02: euvolemic today with kidney function back to baseline. Per Nephro, continue Lasix BID 07/03: mildly elevated creat with addition of Indocin for gout flare. hold Lasix and lisinopril while on this med 1-2 more days. 07/04: creat increase to 2.0, Indocin stopped. Cont to hold Lasix and lisinopril 2. Gouty arthritis in R knee that is crystal-proven on last admission along with presumed gouty arthritis of the feet bilaterally. The patient cannot localize an area of pain in his legs and reports pain in calves, shins, ankles, knees and toes bilaterally. He has been reportedly ambulatory at [facility] over the past week so less concerned for DVT at this time, and the fact that he is tender all over with no evidence of thrombotic syndrome makes this less likely. Will check vit D level as patient has recently been on high dose supplementation, and low D can cause some pain like this. Pt received an intraarticular injection of steroids two weeks ago and was sent home on a 5 day prednisone burst. There is no evidence of a gout attack at this time (i.e-no swollen or painful joints to the touch and no erythema present). The patient also states that he typically takes Darwin and has not been given this --I see it was stopped at discharge from last admission about one week ago. Will restart his Darwin now and increase the frequency temporarily as part of his issue may be narcotic withdrawal. Hold any steorids for now. Cont steroid injections as outpatient [id number]. Per Dr. Raza during last hospitalization, patient is not a great surgical candidate. 07/02: pain in knees, ankles and calves is severe today. Darwin helped some but not enough. With recent hospitalization will rule out DVT, vit D level pending as low vit D may be contributing, and will initiate some Indocin for gout flare. With Indocin on board will hold Lasix. Of note, he states that the oral prednisone he took over the last week did not help his joint pain. I believe his leg pain is likely 2/2 statin use, however. Will hold this for now and Dr. Ryder can rechallenge him as she sees fit as outpatient. 07/03: pain is improved. Cont Indocin, hold Lasix and lisinopril. Vit D level is WNL. Cont Darwin PRN, TEDs, and SCDs. 07/04: pain improved overall, but there is still pain in the R knee. Cont Darwin PRN, but he is not asking for medications at this time. 3. 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 Stopped Lipitor now and will obtain CK in am. Treat for gout simultaneously as above. 4. Nausea diarrhea and vomiting 2/2 acute gastroenteritis of uncertain etiology -resolved. 5. Anemia -recently decreased from Hb 12.8 in Jan 2016 to current levels of 9.0. Poss ACD vs CKD? Defer to Nephrology and outpatient PCP for continued workup/treatment. 6. Chronic systolic heart failure secondary to ischemic cardiomyopathy- clinically appears euvolemic to dry. Hold Lasix in setting of Indocin use for gout flare. Cont ASA, statin, and Coreg. Cont to hold Lisinopril in setting of Indocin use. 7. Coronary artery disease status post coronary artery bypass grafting-as above. 8. AFib, rate controlled. INR therapeutic. Cont coumadin per home dosing. 9. 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 I see no reason to continue him on this for nausea. This was stopped. PPI is BID as outpatient so will cont this here. 10. DM type 2, insulin requiring at home -uncontrolled. Adding Lantus 10 Units BID and request placed for pharmacy glycemic consult. 11. Stag II Decub on buttocks-was present on admission. Blister wound present on R heel. Dr Ignacio was consulted for this tomorrow. 07/04: pressure sores seen at knees bilaterally per wound care; this is for TEDs that are too tight. TEDs were taken off and larger size needs to be utilized if they are put back on with care to avoid these wounds. Apprec wound care following. Total time spent on discharge = 60 minutes This includes examination of the patient, discharge planning, medication reconciliation, and communication with other providers. Discharge Instructions [facility] [address] [place] [address] Discharge Medical Patient Name: Dong Macedo Unit Number: [id number] Date of : 1935 Patient Status: Admitted Inpatient Attending Doctor: Monica Akers DO DI: Medical v4 Discharge Instructions Date of Service July 05, 2016. Admission Reason for Admission: AFR Discharge Discharge Diagnosis / Problem: Acute Gastroenteritis-resolved, Stag II wounds on buttocks and R heel. Discharge Goals Goal(s): Prevent Disease Progression Activity Recommendations Activity Limitations: per Instructions/Follow-up section . Instructions / Follow-Up Instructions / Follow-Up Please take all medications as instructed above. You will need a follow-up with your primary care physician within one week to evaluate your kidney function and re-evaluate your gout. In the meantime your allopurinol was stopped. This may be resumed when it is determined you are no longer having an acute gout flare. Recommend BASIC METABOLIC PANEL in one week with results sent to primary care physician. Cont monitoring INR while on Coumadin as you were before. Cont monitoring daily weights while on Lasix OK to use KAITLIN hose intermittently to help with swelling in your legs. Follow-up with [facility] for buttock, ankle and heel wounds. It was a pleasure taking care of you! Call if you have any questions or problems. You can reach a [facility] hospitalist on duty at [facility] 24 hours a day by calling [phone]. Take care of yourself. Monica Akers, DO [facility] Additional Copies To Jennifer Ryder M.D.
[2016-07-05 12:14] VITALS: BP 147/84; TEMP 37; O2SAT 95
[2016-07-05 12:28] VITALS: PULSE 96
[2016-07-05] MEDS ORDERED: CARVEDILOL 25 MG TAB PO ONE (12:30)
[2016-07-05] MEDS ORDERED: CARVEDILOL 12.5 MG TAB PO ONE (12:30)
--- NOTE | 2016-07-06 13:08 | EDITING REQUIRED CODING QUERY ---
DEBRIDEMENT DOCUMENTATION To promote full compliance with coding requirements relating to patient care, physician participation is requested in all cases of shingles roofer helper uncertainty. Please assist us with the question(s) below: Please place an X in the parenthesis (x). If other, please document the finding: Type of Debridement: ( ) Excisional Debridement- Cutting away necrotic, devitalized tissue or slough to the level of viable tissue using a sharp instrument (i.e. scalpel, scissors, etc.) ( ) Non Excisional Debridement- The removal of necrotic, devitalized tissue or slough by means of scraping, mechanical brushing, flushing, or washing (i.e. irrigation,whirlpool);minor removal of loose fragments. ( ) Other (please specify): Instrument Used: (x ) Scissors ( ) Scalpel ( ) Curette ( ) Other (please specify): Depth of Debridement: (x ) Skin ( ) Skin and Subcutaneous Tissue ( ) Skin, Subcutaneous Tissue and Muscle ( ) Skin, Subcutaneous Tissue, Muscle and Bone ( ) Other (please specify): Please Specify the Size of Debridement in cm2: 28 sq.cm NOted very clearly in the medical record dated 07/04/16 Thank you MACKENZIE Nathan CCS
[2016-07-12] MEDS ORDERED: CHOL100010 IM (08:16)
[2016-07-12] MEDS ORDERED: NVLGI7030 SC (08:17)
[2016-07-14] MEDS ORDERED: DOXY100C76 PO (13:32)
[2016-07-14] MEDS ORDERED: CIPR250T3 PO (13:32)
--- NOTE | 2016-07-21 08:19 | EDITING REQUIRED CODING QUERY ---
SUPPORTING DIAGNOSIS NEEDED Dr. Maradiaga, A supporting diagnosis is required for the test/procedure performed on this patient in order for us to be reimbursed by the patient's insurance. Please provide a supporting diagnosis for the following test/procedure listed below next to the test name along with your signature. *If there is no additional diagnosis for this patient that would support the following test/procedure please document that below next to the test/procedure. Test(s)/Procedure(s) that require a supporting diagnosis: * ([id number]) VENOUS DOPPLER LOWER EXT BILAT DIAGNOSIS: DATE OF SERVICE: 07/02/16 Provider Signature: Date: Thank you Tanner Argueta [facility] Information Management Once completed, please kindly fax back to [phone] For questions please call [phone]
[2016-07-22] MEDS ORDERED: VNTHFA/IN INH (09:48)
[2016-07-22] MEDS ORDERED: NUTRMIS PO (09:48)
[2016-07-22] MEDS ORDERED: LCTX PO (09:48)
[2016-07-22] MEDS ORDERED: LSN20 PO (09:48)
[2016-07-22] MEDS ORDERED: HYDR-5688 PO (09:48)
[2016-07-22] MEDS ORDERED: PRED-301 PO (09:48)
[2016-07-22] MEDS ORDERED: TRAM-10 PO (09:48)
[2016-07-22] MEDS ORDERED: CMD5 PO (09:48)
[2016-07-22] MEDS ORDERED: NUTR-1049 PO (09:48)
[2016-07-22] MEDS ORDERED: LPR25 PO (09:48)
[2016-07-22] MEDS ORDERED: ASPEC81 PO (09:55)
[2016-08-22] MEDS ORDERED: SULF800T23 PO (08:30)
[2016-09-27] MEDS ORDERED: NVLGI7030 SC (08:17)
[2016-09-27] MEDS ORDERED: NTRGSL/4 UT ×2 (11:38)
[2016-09-27] MEDS ORDERED: FRS/40 PO ×2 (11:38)
[2016-09-27] MEDS ORDERED: PRLSR20 PO ×2 (11:38)
[2016-09-27] MEDS ORDERED: ASCA500 PO ×2 (17:58)
[2016-11-03] MEDS ORDERED: CLIN300C10 (14:29)
[2016-11-03] MEDS ORDERED: CLIN150C15 PO (14:29)
[2016-12-25] MEDS ORDERED: TPRSR50 PO (08:35)
[2016-12-25] MEDS ORDERED: IMDSR60 PO (08:35)
[2017-01-04] MEDS ORDERED: SULF800T23 PO (10:40)
[2017-01-04] MEDS ORDERED: CEFD300C2 PO (10:40)
== END 2016-07-05 12:50 | DRG 683 ==
LOC: ENRESERVDT → ENRESERVTM → EDBD 16:49 → C.EDB 16:51 → C.MS4W 19:18
PROVIDERS: ADMIT Hospitalist; ATTEND Hospitalist
PROC: 0HCMXZZ Extirpation of Matter from Right Foot Skin, External Approach (ICD-10-PCS; principal; 2016-07-04)
DX: N17.9 Acute kidney failure, unspecified (principal); I13.0 Hypertensive heart and chronic kidney disease with heart failure and stage 1 through stage 4 chronic kidney disease, or unspecified chronic kidney disease; G72.0 Drug-induced myopathy; I50.22 Chronic systolic (congestive) heart failure; L89.302 Pressure ulcer of unspecified buttock, stage 2; I48.91 Unspecified atrial fibrillation; T49.0X5A Adverse effect of local antifungal, anti-infective and anti-inflammatory drugs, initial encounter; L89.612 Pressure ulcer of right heel, stage 2; L89.152 Pressure ulcer of sacral region, stage 2; I25.5 Ischemic cardiomyopathy; I25.10 Atherosclerotic heart disease of native coronary artery without angina pectoris; Z79.01 Long term (current) use of anticoagulants; Z79.4 Long term (current) use of insulin; D63.1 Anemia in chronic kidney disease; K52.9 Noninfective gastroenteritis and colitis, unspecified; N18.3 Chronic kidney disease, stage 3 (moderate); E11.21 Type 2 diabetes mellitus with diabetic nephropathy; K22.70 Barrett's esophagus without dysplasia; Z95.1 Presence of aortocoronary bypass graft; Y92.129 Unspecified place in nursing home as the place of occurrence of the external cause

== ENCOUNTER → 2016-06-30 | Outpatient (CLI) | payer OTHER ==
[~2016-06-30] MED LIST changes: +ACET325T96 PO; +ALL300 PO; +ALLO100T PO; +ALLO300T2 PO; +AMX500 PO; +ASCA500 PO; +ASPEC81 PO; +CARV12.5 PO; +CEFD300C2 PO; +CHOL100010 IM; +CIPR1TAB11 PO; +CIPR250T3 PO; +CLIN150C15 PO; +CLIN300C10; +CMD10 PO; +CMD5 PO; +CRG125 PO; +CRS/10 PO; +CYCL10TA6 PO; +DOXY100C76 PO; -ERGO1CAP35 PO; +ERGO1TAB12 PO; +FRS/40 PO; +FURO40TA3 PO; +GABA-112 PO; +IMDSR60 PO; +LCTX PO; +LISI-725 PO; +LPR25 PO; +LSN20 PO; +LSX80 PO; +MCRK20 PO; +MCTP EXT; +MIRT15TA2 PO; +MULT-506 PO; +MULTTAB PO; +NRN100 PO; +NTRGSL/4 UT; +NUTR-1049 PO; +NUTRMIS PO; +PRED-301 PO; +PRLSR20 PO; +PROTEIN LIQUID PO; +SENN-65 PO; -SPIR25TA PO; +SULF800T23 PO; +TPRSR50 PO; +TRAM-10 PO; +VNTHFA/IN INH; +VTMD PO; +WARF-237 PO
[2016-06-30 08:29] LABS: BASO % 0.1 %; BASO ABS # 0.01 K/uL (0-0.2); COMPLETE YES; EOS % 4.3 %; HEMATOCRIT 33.9 % (42-52); IG% 1.2 %; LYMPH % 13.7 %; LYMPH ABS # 1.59 K/uL (1.2-3.4); MEAN CELL VOLUME 89.7 fL (80-100); MEAN CORPUSCULAR HEMOGLOBIN 27.2 pg (25-34); MEAN CORPUSCULAR HGB CONC 30.4 g/dl (32-36); MEAN PLATELET VOLUME 9.3 fL (7.4-10.4); MONO % 7.8 %; NEUT % 72.9 %; PLATELET COUNT 279 K/uL (130-400); RED BLOOD COUNT 3.78 M/uL (4.7-6.1); WHITE BLOOD COUNT 11.61 K/uL (4.8-10.8)
[2016-06-30 08:36] LABS: BLOOD UREA NITROGEN 67 mg/dl (7-18); BUN/CREATININE RATIO 26.8 (10-20); CARBON DIOXIDE 23 mmol/L (21-32); CHLORIDE 102 mmol/L (98-107); GLUCOSE 93 mg/dl (70-99); POTASSIUM 4.5 mmol/L (3.5-5.1); SODIUM 136 mmol/L (136-145)
[2016-06-30 08:37] LABS: INR 2.8 (0.9-1.1); PROTHROMBIN TIME (PATIENT) 31.4 SECONDS (9.0-12.0)
[2016-06-30 08:46] LABS: CALCIUM 8.4 mg/dl (8.5-10.1)
== END ==
LOC: C.LABCC 07:57
PROVIDERS: ATTEND Internal Medicine
DX: I48.91 Unspecified atrial fibrillation (principal); D64.9 Anemia, unspecified; I50.9 Heart failure, unspecified

== ENCOUNTER → 2016-07-07 | Outpatient (CLI) | payer OTHER ==
[~2016-07-07] MED LIST changes: +ACET325T96 PO; -ALL300 PO; +ALLO300T2 PO; +AMLO-110 PO; -AMX500 PO; +ASCA500 PO; +ASPEC81 PO; -ATOR-26 PO; +CARV12.5 PO; +CEFD300C2 PO; +CHOL100010 IM; +CIPR1TAB11 PO; +CIPR250T3 PO; +CLIN150C15 PO; +CLIN300C10; +CMD10 PO; +CMD5 PO; +CRG125 PO; +CRS/10 PO; +CYCL10TA6 PO; +DOXY100C76 PO; +ERGO1TAB12 PO; +FRS/40 PO; +FURO40TA3 PO; +GABA-112 PO; +HYDR-5688 PO; +IMDSR60 PO; +LCTX PO; -LDDP5 TD; +LISI-725 PO; +LPR25 PO; +LSN20 PO; +LSX80 PO; +MIRT15TA2 PO; +MULT-506 PO; +MULTTAB PO; +NRN100 PO; +NTRGSL/4 UT; +NUTR-1049 PO; +NUTRMIS PO; +POTA20TA16 PO; +PRED-301 PO; +PRLSR20 PO; +PROTEIN LIQUID PO; +SENN-65 PO; -SUCR1TAB29 PO; +SULF800T23 PO; +TPRSR50 PO; +TRAM-10 PO; +VNTHFA/IN INH; +WARF-237 PO
[2016-07-07 10:05] LABS: BLOOD UREA NITROGEN 24 mg/dl (7-18); BUN/CREATININE RATIO 16.1 (10-20); CARBON DIOXIDE 23 mmol/L (21-32); CHLORIDE 108 mmol/L (98-107); POTASSIUM 3.6 mmol/L (3.5-5.1); SODIUM 140 mmol/L (136-145)
[2016-07-07 10:10] LABS: GLUCOSE 46 mg/dl (70-99)
[2016-07-07 10:18] LABS: CALCIUM 8.8 mg/dl (8.5-10.1)
== END ==
LOC: C.LABCC 07:48
PROVIDERS: ATTEND Internal Medicine
DX: N18.3 Chronic kidney disease, stage 3 (moderate) (principal)

== ENCOUNTER → 2016-07-12 | Outpatient (CLI) | payer OTHER ==
[~2016-07-12] MED LIST changes: +ALL300 PO; +ALLO100T PO; +AMX500 PO; +ATOR-26 PO; +LDDP5 TD; +SUCR1TAB29 PO
[2016-07-12 09:23] LABS: BASO % 0.3 %; BASO ABS # 0.02 K/uL (0-0.2); EOS % 6.9 %; IG% 0.2 %; LYMPH % 16.3 %; LYMPH ABS # 1.01 K/uL (1.2-3.4); MEAN CELL VOLUME 89.1 fL (80-100); MEAN CORPUSCULAR HEMOGLOBIN 27.7 pg (25-34); MEAN CORPUSCULAR HGB CONC 31.1 g/dl (32-36); MEAN PLATELET VOLUME 8.8 fL (7.4-10.4); MONO % 11.1 %; NEUT % 65.2 %; PLATELET COUNT 195 K/uL (130-400); RED BLOOD COUNT 3.03 M/uL (4.7-6.1); WHITE BLOOD COUNT 6.19 K/uL (4.8-10.8)
[2016-07-12 09:30] LABS: BLOOD UREA NITROGEN 38 mg/dl (7-18); BUN/CREATININE RATIO 20.1 (10-20); CARBON DIOXIDE 23 mmol/L (21-32); CHLORIDE 106 mmol/L (98-107); GLUCOSE 76 mg/dl (70-99); POTASSIUM 4.2 mmol/L (3.5-5.1); SODIUM 139 mmol/L (136-145)
[2016-07-12 09:31] LABS: INR 2.6 (0.9-1.1); PROTHROMBIN TIME (PATIENT) 28.5 SECONDS (9.0-12.0)
[2016-07-12 09:41] LABS: CALCIUM 8.6 mg/dl (8.5-10.1)
[2016-07-12 10:54] LABS: ANISOCYTOSIS PRESENT; COMPLETE YES; POIKILOCYTOSIS PRESENT
== END ==
LOC: C.LABCC 08:57
PROVIDERS: ATTEND Internal Medicine
DX: N17.9 Acute kidney failure, unspecified (principal); D64.9 Anemia, unspecified; I48.91 Unspecified atrial fibrillation; N18.3 Chronic kidney disease, stage 3 (moderate)

== ENCOUNTER 2016-07-17 15:52 | Inpatient (IN) | payer OTHER ==
[~2016-07-17] VITALS: Ht 193 cm; Wt 124.0 kg
[~2016-07-17 15:52] MED LIST changes: -ACET325T96 PO; -ALL300 PO; -ALLO100T PO; -ALLO300T2 PO; -AMLO-110 PO; -AMX500 PO; -ASCA500 PO; -ASPEC81 PO; -ATOR-26 PO; -CARV12.5 PO; -CEFD300C2 PO; -CHOL100010 IM; -CIPR1TAB11 PO; -CLIN150C15 PO; -CLIN300C10; -CMD10 PO; -CMD5 PO; -CRG125 PO; -CRS/10 PO; -CYCL10TA6 PO; -ERGO1TAB12 PO; -FRS/40 PO; -FURO40TA3 PO; -GABA-112 PO; -IMDSR60 PO; -LCTX PO; -LDDP5 TD; -LISI-725 PO; -LPR25 PO; -LSN20 PO; -LSX80 PO; -MIRT15TA2 PO; -MULTTAB PO; -NRN100 PO; -NTRGSL/4 UT; -NUTR-1049 PO; -NUTRMIS PO; -POTA20TA16 PO; -PRED-301 PO; -PRLSR20 PO; -PROTEIN LIQUID PO; -SENN-65 PO; -SUCR1TAB29 PO; -SULF800T23 PO; -TPRSR50 PO; -TRAM-10 PO; -VNTHFA/IN INH; -WARF-237 PO
[2016-07-17] MEDS ORDERED: HYDROmorphone INJ 0.5 MG/0.5 ML SYR IV PRN (16:15)
[2016-07-17] MEDS ORDERED: SODIUM CHLORIDE 0.9% 1000ML 1,000 ML IV STA (16:15)
[2016-07-17] MEDS ORDERED: ONDANSETRON INJ 2 MG/ML 2 ML VIAL IV STA (16:15)
[2016-07-17] MEDS ORDERED: SENN-65 PO (16:43)
[2016-07-17] MEDS ORDERED: TRAZ50TA35 PO (16:43)
[2016-07-17] MEDS ORDERED: WARF-237 PO (16:43)
[2016-07-17] MEDS ORDERED: CIPR1TAB11 PO (16:43)
[2016-07-17] MEDS ORDERED: TRAM-10 PO (16:43)
[2016-07-17] MEDS ORDERED: PROTEIN LIQUID PO (16:43)
[2016-07-17] MEDS ORDERED: DOXY100C76 PO (16:43)
[2016-07-17] MEDS ORDERED: CARV12.5 PO (16:43)
[2016-07-17] MEDS ORDERED: MULTTAB PO (16:43)
[2016-07-17 17:00] LABS: HEMATOCRIT 29.7 % (42-52); MEAN CELL VOLUME 87.1 fL (80-100); MEAN CORPUSCULAR HEMOGLOBIN 27.3 pg (25-34); MEAN CORPUSCULAR HGB CONC 31.3 g/dl (32-36); MEAN PLATELET VOLUME 8.7 fL (7.4-10.4); PLATELET COUNT 313 K/uL (130-400); RED BLOOD COUNT 3.41 M/uL (4.7-6.1); WHITE BLOOD COUNT 8.63 K/uL (4.8-10.8)
[2016-07-17 17:20] LABS: ANISOCYTOSIS PRESENT; BASO % 0.3 %; BASO ABS # 0.03 K/uL (0-0.2); COMPLETE YES; IG% 0.2 %; LYMPH % 12.3 %; LYMPH ABS # 1.06 K/uL (1.2-3.4); MICROCYTOSIS PRESENT; MONO % 10.1 %; NEUT % 74.1 %; POIKILOCYTOSIS PRESENT; POLYCHROMASIA 1+
[2016-07-17 17:31] LABS: ALT/SGPT 23 U/L (12-78); AST/SGOT 16 U/L (15-37); BLOOD UREA NITROGEN 40 mg/dl (7-18); BUN/CREATININE RATIO 22.1 (10-20); CALCIUM 8.9 mg/dl (8.5-10.1); CARBON DIOXIDE 26 mmol/L (21-32); CHLORIDE 104 mmol/L (98-107); GLUCOSE 107 mg/dl (70-99); MAGNESIUM 2.3 mg/dl (1.8-2.4); POTASSIUM 4.9 mmol/L (3.5-5.1); SODIUM 141 mmol/L (136-145)
[2016-07-17] MEDS ORDERED: METOPROLOL TARTRATE 1 MG/ML VIAL IV STA ×2 (17:34→19:47)
[2016-07-17 17:42] LABS: ALKALINE PHOSPHATASE 104 U/L (45-117); CKMB/CK RATIO 2.8 (0-3.0)
--- NOTE | 2016-07-17 18:30 | DIAGNOSTIC IMAGING REPORT ---
RIGHT LOWER EXTREMITY VENOUS DOPPLER HISTORY: right leg swelling Right COMPARISON STUDY: Venous Doppler 07/02/2016. FINDINGS: There is normal compressibility, flow, and augmentation within the right lower extremity deep venous system. IMPRESSION: No DVT within the right lower extremity Electronically signed by: Bandar Belle M.D. 07/17/2016 6:28 PM Dictated Date/Time: 07/17/2016 6:28 PM
--- NOTE | 2016-07-17 19:15 | DIAGNOSTIC IMAGING REPORT ---
RIGHT HIP UNILATERAL 2 VIEWS, RIGHT KNEE 1 OR 2 VIEWS ROUTINE, RIGHT ANKLE MIN 3 VIEWS ROUTINE CLINICAL HISTORY: right ankle, knee, and hip pain Right COMPARISON STUDY: Right hip 02/17/2016. Bilateral knees 02/27/2009. FINDINGS: Severe osteoarthritis within the right hip with [id number] articulation and subchondral sclerosis. This remains unchanged. The visualized pelvic bones are intact. Moderate knee effusion. Moderate osteoarthritis within the right knee. The bones are osteopenic. Diffuse soft tissue swelling within the right ankle. Moderate osteoarthritis within the right ankle. Well-corticated ossific densities adjacent to the medial malleolus consistent with old avulsion injuries. No acute fracture or dislocation within the visualized osseous structures. IMPRESSION: 1. No acute fracture or dislocation within the right hip, right knee, right ankle. 2. Degenerative changes as described above. 3. Moderate right knee effusion. 4. Soft tissue swelling within the right ankle. Electronically signed by: Bandar Belle M.D. 07/17/2016 7:13 PM Dictated Date/Time: 07/17/2016 7:09 PM
--- NOTE | 2016-07-17 19:15 | DIAGNOSTIC IMAGING REPORT ---
RIGHT HIP UNILATERAL 2 VIEWS, RIGHT KNEE 1 OR 2 VIEWS ROUTINE, RIGHT ANKLE MIN 3 VIEWS ROUTINE CLINICAL HISTORY: right ankle, knee, and hip pain Right COMPARISON STUDY: Right hip 02/17/2016. Bilateral knees 02/27/2009. FINDINGS: Severe osteoarthritis within the right hip with [id number] articulation and subchondral sclerosis. This remains unchanged. The visualized pelvic bones are intact. Moderate knee effusion. Moderate osteoarthritis within the right knee. The bones are osteopenic. Diffuse soft tissue swelling within the right ankle. Moderate osteoarthritis within the right ankle. Well-corticated ossific densities adjacent to the medial malleolus consistent with old avulsion injuries. No acute fracture or dislocation within the visualized osseous structures. IMPRESSION: 1. No acute fracture or dislocation within the right hip, right knee, right ankle. 2. Degenerative changes as described above. 3. Moderate right knee effusion. 4. Soft tissue swelling within the right ankle. Electronically signed by: Bandar Belle M.D. 07/17/2016 7:13 PM Dictated Date/Time: 07/17/2016 7:09 PM
--- NOTE | 2016-07-17 19:15 | DIAGNOSTIC IMAGING REPORT ---
RIGHT HIP UNILATERAL 2 VIEWS, RIGHT KNEE 1 OR 2 VIEWS ROUTINE, RIGHT ANKLE MIN 3 VIEWS ROUTINE CLINICAL HISTORY: right ankle, knee, and hip pain Right COMPARISON STUDY: Right hip 02/17/2016. Bilateral knees 02/27/2009. FINDINGS: Severe osteoarthritis within the right hip with [id number] articulation and subchondral sclerosis. This remains unchanged. The visualized pelvic bones are intact. Moderate knee effusion. Moderate osteoarthritis within the right knee. The bones are osteopenic. Diffuse soft tissue swelling within the right ankle. Moderate osteoarthritis within the right ankle. Well-corticated ossific densities adjacent to the medial malleolus consistent with old avulsion injuries. No acute fracture or dislocation within the visualized osseous structures. IMPRESSION: 1. No acute fracture or dislocation within the right hip, right knee, right ankle. 2. Degenerative changes as described above. 3. Moderate right knee effusion. 4. Soft tissue swelling within the right ankle. Electronically signed by: Bandar Belel M.D. 07/17/2016 7:13 PM Dictated Date/Time: 07/17/2016 7:09 PM
--- NOTE | 2016-07-17 19:18 | DIAGNOSTIC IMAGING REPORT ---
CHEST 2 VIEWS ROUTINE HISTORY: weakness, cough, afib COMPARISON: Chest 06/30/2016. FINDINGS: The heart remains moderately enlarged. No pleural effusions. No pneumothorax. Mild interstitial pulmonary edema, unchanged. No new focal lung consolidations. IMPRESSION: No change in the cardiomegaly and mild pulmonary edema. Electronically signed by: Bandar Belle M.D. 07/17/2016 7:17 PM Dictated Date/Time: 07/17/2016 7:15 PM
[2016-07-17 20:08] LABS: PARTIAL THROMBOPLASTIN RATIO 2.2; PROTHROMBIN TIME (PATIENT) 45.4 SECONDS (9.0-12.0)
[2016-07-17 21:07] VITALS: BMI 35.0
[2016-07-17 21:11] VITALS: O2SAT 96
[2016-07-17] MEDS ORDERED: GLUCOSE 10 TABS/TUBE PO PRN (21:30)
[2016-07-17] MEDS ORDERED: TRAMADOL HCL 50 MG TAB PO PRN (21:30)
[2016-07-17] MEDS ORDERED: DEXTROSE 50% 50 ML SYR IV PRN (21:30)
[2016-07-17] MEDS ORDERED: NITROGLYCERIN 0.4 MG SL PER TAB CHARGE SL PRN (21:30)
[2016-07-17] MEDS ORDERED: DIGOXIN IV 250 MCG in SYRINGE 9 ML IV SCH (21:30)
[2016-07-17] MEDS ORDERED: HYDROmorphone INJ 1 MG/ML SYR IV PRN (21:30)
[2016-07-17] MEDS ORDERED: HALOPERIDOL 1 MG TAB PO PRN (21:30)
[2016-07-17] MEDS ORDERED: GLUCAGON FOR INJ 1 MG VIAL SQ PRN (21:30)
[2016-07-17] MEDS ORDERED: GLUCOSE 40% GEL 15 GM TUBE PO PRN (21:30)
[2016-07-17] MEDS ORDERED: ACETAMINOPHEN 325 MG TAB PO PRN ×2 (21:30)
[2016-07-17] MEDS ORDERED: NITROGLYCERIN 0.4 MG SL PER TAB CHARGE UT PRN (21:30)
[2016-07-17] MEDS ORDERED: LEVALBUTEROL/IPRATROPIUM NEB INH PRN (21:30)
[2016-07-17] MEDS ORDERED: HYDROCODONE/ACETAMOPHEN 5/325MG TAB PO PRN (21:30)
[2016-07-17 21:41] VITALS: BP 102/61; PULSE 109; TEMP 36.7; O2SAT 96
--- NOTE | 2016-07-17 21:44 | EMERGENCY ROOM VISIT NOTE ---
History Report prepared by Mick: Nicolasa Watson Under the Supervision of: Dr. Jef Orourke M.D. First contact with patient: 16:04 Stated Complaint: SOB, LEG PAIN History of Present Illness The patient is a 80 year old male who presents to the Emergency Room with complaints of constant leg pain beginning today. The patient states that he has wounds in his bilateral legs that he follows up with at the wound clinic. He reports that the pain in his legs has become so severe that he is no longer able to walk as it worsens his pain. He complains of right knee pain, right ankle pain, right hip pain, and right leg swelling more than usual. The patient reports that he has a history of A-Fib and he is on Warfarin. Pt denies any chest pain or discomfort, shortness of breath, fall, fevers, chills, diaphoresis , neck pain, changes in vision, nausea, vomiting, abdominal pain, back pain, melena, hematochezia, urinary symptoms, numbness, weakness, rash, or other complaints. He notes that he has had a cold recently and had a bit of a bloody nose this morning. Per nursing staff, the patient was seen here last week for a UTI. Source of History: patient Onset: today Position: leg (bilateral) Timing: constant Modifying Factors (Worsening): other (walking) Note: He complains of right knee pain, right ankle pain, right hip pain, and right leg swelling more than usual. Pt denies any chest pain or discomfort, shortness of breath, fall, fevers, chills, diaphoresis, neck pain, nausea, vomiting, abdominal pain, back pain, melena, hematochezia, urinary symptoms, numbness, weakness, rash, or other complaints. Review of Systems See HPI for pertinent positives and negatives. A total of ten systems were reviewed and were otherwise negative. 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 Family History No pertinent family history Social History Smoking Status: Never Smoker Drug Use: none Marital Status: Housing Status: lives alone Occupation Status: retired Current/Historical Medications Scheduled Ascorbic Acid (Vitamin C), 500 MG PO BID Carvedilol (Coreg), 37.5 MG PO QAM Carvedilol (Coreg), 25 MG PO QPM Ciprofloxacin Tab (Cipro), 250 MG PO BID Doxycycline Monohydrate (Monodox), 100 MG PO BID Ergocalciferol (Vitamin D2), 50,000 UNITS PO MONTHLY Furosemide (Lasix), 40 MG PO QPM AT 1630 Furosemide (Lasix), 80 MG PO QAM AT 0830 Insulin Aspart 70/30 (Novolog Mix 70/30), 55 SC QAM Insulin Aspart 70/30 (Novolog Mix 70/30), 45 SC QPM Lisinopril (Zestril), 40 MG PO QAM Mirtazapine (Remeron), 15 MG PO HS Multivitamins/Minerals (Mvi With Minerals), 1 TAB PO QAM Omeprazole (Prilosec), 20 MG PO BID Potassium Ext Rel (Klor-Con), 40 MEQ PO QAM Rosuvastatin Calcium (Crestor), 10 MG PO QPM Senna/Docusate Sod (Senokot S), 1 TAB PO QAM Trazodone Hcl (Trazodone), 50 MG PO HS Warfarin Sod (Coumadin), 10 MG PO QPM [Protein Liquid], 30 ML PO BID Scheduled PRN Acetaminophen Tab (Tylenol), 650 MG PO Q6H PRN for Pain or Fever Hydrocodone/Acetaminophen 5MG/325MG (Noble 5MG/325MG), 1 TABLET PO TID PRN for Pain Nitroglycerin (Nitrostat), 0.4 MG UT PRN PRN for Chest Pain Tramadol (Ultram), 50 MG PO Q6H PRN for Pain Allergies Coded Allergies: NO KNOWN DRUG ALLERGIES (Verified Allergy, Unknown, ., 07/17/16) Physical Exam Vital Signs Date Time Temp Pulse Resp B/P (MAP) Pulse Ox O2 Delivery O2 Flow Rate FiO2 07/17/16 21:11 105 18 102/68 96 Nasal Cannula 3.0 07/17/16 21:07 Nasal Cannula 3.0 07/17/16 20:26 120 104/63 07/17/16 20:25 116 07/17/16 20:24 106 16 104/63 99 Nasal Cannula 3.0 07/17/16 19:10 119 113/66 07/17/16 19:05 115 20 113/66 93 Room Air 07/17/16 16:28 116 07/17/16 15:52 36.9 123 18 99/68 97 Room Air 07/17/16 15:52 97 Room Air 07/17/16 15:52 97 Room Air 07/17/16 15:52 97 Room Air Physical Exam GENERAL: Awake, alert, well-appearing, in no distress HENT: Normocephalic, atraumatic. Oropharynx unremarkable. EYES: Normal conjunctiva. Sclera non-icteric. NECK: Supple. No nuchal rigidity. FROM. No JVD. RESPIRATORY: Clear to auscultation. CARDIAC: Tachycardic rate, irregular rhythm. Extremities warm and well perfused. Pulses equal. ABDOMEN: Soft, non-distended. No tenderness to palpation. No rebound or guarding. No masses. RECTAL: Deferred. MUSCULOSKELETAL: Chest examination reveals no tenderness. LOWER EXTREMITIES: 3+ edema bilaterally, left leg has chronic venous discoloration, ulcer on the right heel. No obvious cellulitis on the right leg. NEURO: Normal sensorium. No sensory or motor deficits noted. SKIN: No rash or jaundice noted. Medical Decision & Procedures ER Provider Diagnostic Interpretation: Radiology results as stated below per my review and radiologist interpretation: RIGHT LOWER EXTREMITY VENOUS DOPPLER FINDINGS: There is normal compressibility, flow, and augmentation within the right lower extremity deep venous system. IMPRESSION: No DVT within the right lower extremity Electronically signed by: Bandar Belle M.D. 07/17/2016 6:28 PM Dictated Date/Time: 07/17/2016 6:28 PM RIGHT HIP UNILATERAL 2 VIEWS, RIGHT KNEE 1 OR 2 VIEWS ROUTINE, RIGHT ANKLE MIN 3 VIEWS ROUTINE FINDINGS: Severe osteoarthritis within the right hip with [id number] articulation and subchondral sclerosis. This remains unchanged. The visualized pelvic bones are intact. Moderate knee effusion. Moderate osteoarthritis within the right knee. The bones are osteopenic. Diffuse soft tissue swelling within the right ankle. Moderate osteoarthritis within the right ankle. Well-corticated ossific densities adjacent to the medial malleolus consistent with old avulsion injuries. No acute fracture or dislocation within the visualized osseous structures. IMPRESSION: 1. No acute fracture or dislocation within the right hip, right knee, right ankle. 2. Degenerative changes as described above. 3. Moderate right knee effusion. 4. Soft tissue swelling within the right ankle. Electronically signed by: Bandar Belle M.D. 07/17/2016 7:13 PM Dictated Date/Time: 07/17/2016 7:09 PM CHEST 2 VIEWS ROUTINE FINDINGS: The heart remains moderately enlarged. No pleural effusions. No pneumothorax. Mild interstitial pulmonary edema, unchanged. No new focal lung consolidations. IMPRESSION: No change in the cardiomegaly and mild pulmonary edema. Electronically signed by: Bandar Belle M.D. 07/17/2016 7:17 PM Dictated Date/Time: 07/17/2016 7:15 PM Laboratory Results 07/17/16 16:35 Red Blood Count 3.41, Mean Corpuscular Volume 87.1, Mean Corpuscular Hemoglobin 27.3, Mean Corpuscular Hemoglobin Concent 31.3, Mean Platelet Volume 8.7, Neutrophils (%) (Auto) 74.1, Lymphocytes (%) (Auto) 12.3, Monocytes (%) (Auto) 10.1, Eosinophils (%) (Auto) 3.0, Basophils (%) (Auto) 0.3, Neutrophils # (Auto ) 6.39, Lymphocytes # (Auto) 1.06, Monocytes # (Auto) 0.87, Eosinophils # (Auto ) 0.26, Basophils # (Auto) 0.03 07/17/16 16:35 Test 07/17/16 16:35 07/17/16 19:15 White Blood Count 8.63 K/uL (4.8-10.8) Red Blood Count 3.41 M/uL (4.7-6.1) Hemoglobin 9.3 g/dL (14.0-18.0) Hematocrit 29.7 % (42-52) Mean Corpuscular Volume 87.1 fL (80-100) Mean Corpuscular Hemoglobin 27.3 pg (25-34) Mean Corpuscular Hemoglobin Concent 31.3 g/dl (32-36) Platelet Count 313 K/uL (130-400) Mean Platelet Volume 8.7 fL (7.4-10.4) Neutrophils (%) (Auto) 74.1 % Lymphocytes (%) (Auto) 12.3 % Monocytes (%) (Auto) 10.1 % Eosinophils (%) (Auto) 3.0 % Basophils (%) (Auto) 0.3 % Neutrophils # (Auto) 6.39 K/uL (1.4-6.5) Lymphocytes # (Auto) 1.06 K/uL (1.2-3.4) Monocytes # (Auto) 0.87 K/uL (0.11-0.59) Eosinophils # (Auto) 0.26 K/uL (0-0.5) Basophils # (Auto) 0.03 K/uL (0-0.2) RDW Standard Deviation 58.6 fL (36.4-46.3) RDW Coefficient of Variation 18.3 % (11.5-14.5) Immature Granulocyte % (Auto) 0.2 % Immature Granulocyte # (Auto) 0.02 K/uL (0.00-0.02) Polychromasia 1+ Poikilocytosis PRESENT Anisocytosis PRESENT Microcytosis PRESENT Anion Gap 11.0 mmol/L (3-11) Est Creatinine Clear Calc Drug Dose 48.0 ml/min Estimated GFR () 40.3 Estimated GFR (Non- 34.8 BUN/Creatinine Ratio 22.1 (10-20) Calcium Level 8.9 mg/dl (8.5-10.1) Magnesium Level 2.3 mg/dl (1.8-2.4) Total Bilirubin 0.6 mg/dl (0.2-1) Direct Bilirubin 0.2 mg/dl (0-0.2) Aspartate Amino Transf (AST/SGOT) 16 U/L (15-37) Alanine Aminotransferase (ALT/SGPT) 23 U/L (12-78) Alkaline Phosphatase 104 U/L (45-117) Total Creatine Kinase 67 U/L (39-308) Creatine Kinase MB 1.9 ng/ml (0.5-3.6) Creatine Kinase MB Ratio 2.8 (0-3.0) Troponin I < 0.015 ng/ml (0-0.045) Total Protein 7.1 gm/dl (6.4-8.2) Albumin 3.0 gm/dl (3.4-5.0) Thyroid Stimulating Hormone (TSH) 1.670 uIu/ml (0.300-4.500) Prothrombin Time 45.4 SECONDS (9.0-12.0) Prothromb Time International Ratio 4.0 (0.9-1.1) Activated Partial Thromboplast Time 57.4 SECONDS (21.0-31.0) Partial Thromboplastin Ratio 2.2 Laboratory results reviewed by me Medications Administered Medications (Trade) Dose Ordered Sig/Aileen Route Start Time Stop Time Status Last Admin Dose Admin Sodium Chloride 1,000 ml @ 125 mls/hr Q8H STAT IV 07/17/16 16:15 07/17/16 20:28 DC 07/17/16 16:49 125 MLS/HR Ondansetron HCl (Zofran Inj) 4 mg NOW STAT IV 07/17/16 16:15 07/17/16 16:19 DC 07/17/16 16:49 4 MG Hydromorphone HCl (Dilaudid Inj) 0.5 mg Q15M PRN IV 07/17/16 16:15 07/17/16 21:28 DC 07/17/16 16:49 0.5 MG Metoprolol Tartrate (Lopressor Iv) 2.5 mg NOW STAT IV 07/17/16 17:34 07/17/16 17:36 DC 07/17/16 19:10 2.5 MG Metoprolol Tartrate (Lopressor Iv) 2.5 mg NOW STAT IV 07/17/16 19:47 07/17/16 19:48 DC 07/17/16 20:26 2.5 MG ECG Indication: SOB/dyspnea Rate (beats per minute): 108 Rhythm: atrial fibrillation Findings: ST depression (5,6,1 and AVL), T-wave inversion (1 and AVL), ST elevation (Lead 3), other (RVR) Comparison ECG Date: 30-JUN-2016 Change: Changes are new compared to previous. EKG #2: A Fib with RVR, 118, Lateral ST depressions and T wave inversions, no significant change from previous EKG. ED Course 1604: The patient was evaluated in room A4B. A complete history and physical exam was performed. 1615: Dilaudid Inj 0.5mg PRN IV pain, Zofran Inj 4mg IV, Sodium Chloride 1000 ml @ 125 mls/hr IV. 1731: I reevaluated the patient. He is feeling better and is still mildly tachycardic. 1733: Lopressor IV 2.5mg IV. 1946: Lopressor IV 2.5mg IV. 1950: Discussed the patient's case with Dr. Maradiaga of [facility]. The patient will be evaluated for further treatment and disposition. 2004: Upon reexamination, the patient was doing well. I discussed the test results and treatment plan with him. The patient will be evaluated for further management. Medical Decision Triage Nursing notes reviewed. The patient's presentation and history were concerning for leg pain. Medication Reconciliation: I attest that I have personally reviewed the patient' s current medication list Blood pressure screening: Patient was found to have normal blood pressure on screening and does not require follow-up. Etiologies such as DVT, joint effusion, infection, trauma, muscular, lymphedema , idiopathic, CHF, as well as others were entertained. The patient has no sign of infection on physical examination. He has significant edema. He was noted be slightly tachycardic and irregular. He has a history of A. fib. The patient had an ECG performed and this did show some mild response. There were acute ECG changes. The patient had no shortness of breath. No atypical cardiac symptoms. His complaints were about his leg. He had no trauma. Ultrasound imaging an x-ray imaging was ordered. Blood was obtained. He was given Dilaudid and Zofran for symptom control. On frequent reassessment he was feeling better. The patient was given 2 doses of Lopressor for his A. fib. A repeat ECG did show concerning findings however the patient had no symptoms of chest pain or difficulty breathing. He had an unremarkable ultrasound of the right lower leg. X-ray imaging revealed arthritic changes but no significant acute abnormalities. The patient's blood work was unremarkable. Cardiac markers negative. He did have a supratherapeutic INR. Given the situation he will need further management in the hospital. His ECG changes will need further evaluation. I did discuss the case with the [facility] hospitalist service. The patient was evaluated in the Emergency Room for further management. Consults Time Called: 1947 Consulting Physician: Dr. Maradiaga Returned Call: 1950 Discussed the patient's case with Dr. Maradiaga of [facility]. The patient will be evaluated for further treatment and disposition. Impression Primary Impression: Right leg pain Additional Impressions: Acute electrocardiogram changes Atrial fibrillation with RVR Supratherapeutic INR Scribe Attestation The scribe's documentation has been prepared under my direction and personally reviewed by me in its entirety. I confirm that the note above accurately reflects all work, treatment, procedures, and medical decision making performed by me. Departure Information Dispostion Being Evaluated By Hospitalist Referrals Sandy SpringPadma (PCP) Problem Qualifiers
--- NOTE | 2016-07-17 21:54 | DIAGNOSTIC IMAGING REPORT ---
ABDOMEN AND PELVIS CT WITHOUT CONTRAST CT DOSE: 1252.43 mGy.cm HISTORY: back pain TECHNIQUE: Multiaxial CT images of the abdomen and pelvis were performed without contrast. COMPARISON STUDY: Abdomen and pelvis CT 01/15/2007 FINDINGS: The heart is enlarged. Mild interstitial thickening at the lung bases. No pneumoperitoneum. No pneumatosis. Severe osteoarthritis within the right hip. Mild degenerative changes within the lumbar spine. No fractures within the visualized osseous structures. The unenhanced liver, gallbladder, pancreas, spleen, and adrenal glands are unremarkable. A few bilateral renal hypodense lesions within the kidneys are incompletely characterize on this noncontrast study but favor cysts. These measure up to 2 cm in size. There are few punctate bilateral renal stones. No hydronephrosis. The bladder is mildly distended. There is a 5 mm stone within the mid left ureter at the L5 level best seen on image 313. No retroperitoneal lymphadenopathy. 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 Scattered surgical clips within the upper abdomen. Colonic diverticulosis. Suboptimal evaluation for bowel pathology due to the lack of intravenous and oral contrast. However, there is no definite bowel wall thickening or obstruction. Moderate stool within the colon. Normal appendix. IMPRESSION: 1. A 5 mm nonobstructing stone within the left ureter. 2. Bilateral nephrolithiasis. No hydronephrosis. 3. 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 4. Additional findings as described above. Electronically signed by: Bandar Belle M.D. 07/17/2016 9:52 PM Dictated Date/Time: 07/17/2016 9:43 PM
--- NOTE | 2016-07-17 21:57 | DIAGNOSTIC IMAGING REPORT ---
HEAD CT NONCONTRAST CT DOSE: 1228.53 mGy.cm HISTORY: Altered mental status. TECHNIQUE: Multiaxial CT images of the head were performed without the use of intravenous contrast. Automated exposure control was utilized for this study. Comparison: None. Findings: The paranasal sinuses and mastoid air cells are clear. The calvarium and skull base are intact. There is no mass, hematoma, midline shift, acute infarct. White matter hypodensity is nonspecific but suggestive of microvascular ischemic change. The ventricles and sulci demonstrate mild age-related involutional changes. Mild motion artifact. Impression: Mild motion artifact. No definite acute intracranial abnormality. Electronically signed by: aBndar Belle M.D. 07/17/2016 9:55 PM Dictated Date/Time: 07/17/2016 9:53 PM
[2016-07-17] MEDS ORDERED: IPRATROPIUM BROMIDE NEB SOLN 0.02% 2.5 ML VIAL INH PRN (22:00)
[2016-07-17] MEDS ORDERED: LEVALBUTEROL 1.25MG/0.5ML NEB INH PRN (22:00)
[2016-07-17] MEDS ORDERED: DOXYCYCLINE HYCLATE 100 MG CAP PO ONE (22:49)
[2016-07-17 23:41] VITALS: BP 95/56; PULSE 109; TEMP 37.2; O2SAT 96
[2016-07-17] MEDS ORDERED: DIGOXIN IV 250 MCG in SYRINGE 9 ML IV STA (23:52)
[2016-07-18] VITALS (11 sets, daily range): BP systolic 90–121; BP diastolic 52–71; PULSE 74–109; TEMP 36.7–37.8; O2SAT 90–96
[2016-07-18] MEDS ORDERED: DOXYCYCLINE HYCLATE 100 MG CAP PO ONE (00:52)
[2016-07-18] MEDS ORDERED: CIPROFLOXACIN 250 MG TAB PO STA (01:17)
--- NOTE | 2016-07-18 02:55 | HISTORY & PHYSICAL EXAMINATION ---
DATE OF ADMISSION: 07/17/2016 PRIMARY CARE PHYSICIAN: Dr. Ryder. CHIEF COMPLAINT: "Weak, I can't be supported by 2 people." "legs hurt" HISTORY OF PRESENT ILLNESS: History obtained from the patient and records. Px has fair reliability given episodic disorientation, agitation during encounter. Medical history significant for chronic systolic heart failure secondary to ischemic cardiomyopathy (EF 40%), CAD sp CABG, hypertension, hyperlipidemia, AFib on Coumadin (px insists he's not despite existing documentation), DM2, insulin requiring, history of chronic kidney disease (baseline creatinine 1.3 to 1.5, chronic anemia (baseline hemoglobin 8 to 9), sleep apnea, gout as per records. decubiti wounds, hx MRSA Recent confinement 2 weeks ago for ARF on CRI secondary to diarrhea. Kidney function improved w/ IVF. Patient discharged back to [facility] for rehab, As per records, today the patient felt weak, unable to be supported by 2 people, complaining of bilateral ankle pain, bilateral right knee pain, thinks it might be a gout attack. Patient also complaining of back pain too. No fever, no chills. No chest pain. Denies actual shortness of breath. No cough sx. Patient feels legs more swollen than usual. Weight stable however. In the Emergency Room, the patient noted to be in rapid AFib, heart rate 120s. SBP 90s. Patient was given IV fluids and Lopressor. MEDICAL HISTORY: As above. Recent outpatient [facility] followup visit a gew days ago (July 14.) As per visit, weight had been stable at that time. Last wound care center visit last week (Dr. Ignacio) stage II pressure ulcer on the right heel improving, stage II pressure ulcer on the buttock stable. Debridement done for R heel ulcer. CS MRSA, Pseudomonas px currently on Doxycycline and Cipro rx. SURGERIES: Orthopedic procedures, CABG, urologic procedures. HOME MEDICATIONS: Include ascorbic acid, carvedilol, Cipro, doxycycline, furosemide, insulin, lisinopril, mirtazapine, potassium, trazodone, ergocalciferol, Coumadin which the patient denies being on, Tylenol, Coreg, Vicodin, multivitamins, omeprazole, rosuvastatin, tramadol. ALLERGIES: No known drug allergies. FAMILY HISTORY: No history of heart disease, diabetes. PERSONAL AND SOCIAL HISTORY: Nonsmoker, no alcoholic beverages. Retired businessman. REVIEW OF SYSTEMS: Could not be reliably obtained. PHYSICAL EXAMINATION: VITAL SIGNS: Blood pressure noted to be initially 99/68, pulse rate 110, RR 18, temperature 36.6, sats 93 on room air. GENERAL: Noted to be coherent, episodic agitation, disorientation, obese. no resp distress, uncomfortable SKIN: Pallor. HEENT: Pale palpebral conjunctivae. Dry mucosa. NECK: Short neck. LUNGS: Decreased breath sounds. HEART: irregular. tachycardic ABDOMEN: Some distention, nontender. EXTREMITIES: Bilateral lower extremity edema with erythema on the right. some tenderness note of excoriations on legs NEUROLOGIC: Some disorientation. Gait and stance not assessed. LABORATORY DATA: Hemoglobin is 9.3, hematocrit 29.7, white cell count 0, platelets 313. Sodium 140, potassium 4.9, chloride 104, CO2 of 26, BUN 40, creatinine 1.8, glucose 107. trop 0 INR was noted to be 4. EKG as per my interpretation : [id number], atrial fibrillation, downsloping ST depression in lateral leads, poor R-wave progression. Chest x-ray, cardiomegaly, mild pulmonary edema. Lower extremity ultrasounds did not show any DVT. Right lower extremity x-ray showed no acute fracture right hip, right knee, right ankle. Moderate right effusion, soft tissue swelling right ankle. L ankle xray soft tissue edema CT of the head, no acute pathology. CT abdomen and pelvis, 5 mm non obstructing stone left ureter, bilateral nephrolithiasis, 30 mm saccular aneurysm in abdominal aorta. CT right lower extremity : arthritis, R knee effusion, diffuse edema . ASSESSMENT: 1. Rapid Afib INR supratherapeutic. multifactorial : LE pain poss R knee gout (px co of pain on the R knee and both ankles for weeks now; hx gouty crystals on R knee aspirate sp intra=articular steroid injection last month) agitation/disorientation. (? home meds, ?new Cipro rx) ARF on CRI 2 to illness, ? mild clinical dehydration 2. Chronic systolic heart failure secondary to ischemia cardiomyopathy, EF 40- 45% equivocal volume status px thinks both legs more swollen mild congestion on CXR stable weight however 3. Coronary artery disease, status post coronary artery bypass graft. 4. Hypertension. Blood pressure on the lower side. 5. DM2, insulin requiring, suboptimal control as of recent HgA1c 8.9 in 2016. BG currently on the lower side 6. Chronic anemia secondary to chronic kidney disease. Hemoglobin is stable. 7. Right heel, sacral decubiti wounds, improving as per recent outpx C eval hx MRSA, Pseudomonas on recent outpx wound CS from R heel wound px currently on outpx Cipro and Doxycycline rx from [facility]. PLAN: PCU Utilize digoxin to control heart rate given low BP. decrease maintenance Coreg dose until BP improved, consider switching to cardioselective BB if BP continues to be low May need inpx Cardio opinion for recommendations for AF (px known to [facility]) analgesia for gout Rheumatology consult RE R knee pain, persistent gout attack, recent joint injection in a px w/ multiple comorbidities (poorly controlled DM,CRI) baseline UA hold home diuretics for now until volume status better hold home neuro-psychotopic meds for sedation/confusion; consider alternative to cipro rx if disorientation persists given Cipro potential to cause cognitive impairment in the elderly) basal insulin, ISS BG goal 140-180. Carb count indicated for suboptimal BG control. complete outpx antibiotic course for R heel wound infection DVT prophylaxis. Coumadin INR 2-3 Full code. MTDD
[2016-07-18] MEDS ORDERED: ALBUMIN HUMAN 25% 12.5 GM/50 ML VIAL IV STA (05:18)
[2016-07-18 05:39] LABS: HEMATOCRIT 23.7 % (42-52); MEAN CELL VOLUME 87.5 fL (80-100); MEAN CORPUSCULAR HGB CONC 32.1 g/dl (32-36); MEAN PLATELET VOLUME 8.3 fL (7.4-10.4); PLATELET COUNT 225 K/uL (130-400); RED BLOOD COUNT 2.71 M/uL (4.7-6.1); WHITE BLOOD COUNT 6.89 K/uL (4.8-10.8)
[2016-07-18 06:02] LABS: PROTHROMBIN TIME (PATIENT) 45.7 SECONDS (9.0-12.0)
[2016-07-18 06:10] LABS: ANISOCYTOSIS PRESENT; BASO % 0.4 %; BASO ABS # 0.03 K/uL (0-0.2); COMPLETE YES; EOS % 2.9 %; IG% 0.3 %; LYMPH % 15.4 %; LYMPH ABS # 1.06 K/uL (1.2-3.4); MONO % 12.8 %; NEUT % 68.2 %; POIKILOCYTOSIS PRESENT
[2016-07-18 06:12] LABS: BUN/CREATININE RATIO 25.2 (10-20); CALCIUM 8.5 mg/dl (8.5-10.1); CREATININE 1.7 mg/dl (0.60-1.40); POTASSIUM 4.3 mmol/L (3.5-5.1)
[2016-07-18] MEDS ORDERED: PHYTONADIONE 5 MG TAB PO STA (06:13)
[2016-07-18] MEDS ORDERED: PHYTONADIONE PED INJ 2 MG, ORA-SWEET SYRUP 2.25 ML, ORA-PLUS SUSP. VEHICLE 2.25 ML, BAR... PO STA ×3 (06:21)
[2016-07-18] MEDS: INSULIN ASPART 100 UNITS/ML 3 ML PEN SC SCH ×4 (07:00→21:00)
--- NOTE | 2016-07-18 07:13 | DIAGNOSTIC IMAGING REPORT ---
CT RIGHT LOWER LEG NO CONTRAST CT DOSE: 299.23 mGy.cm CLINICAL HISTORY: Right lower leg pain and swelling. TECHNIQUE: COMPARISON STUDY: Conventional radiographic images dated 07/17/2016 FINDINGS: There is a small joint effusion within the knee. No soft tissue masses are visualized on this noncontrast study. There is diffuse subcutaneous edema. There are moderately extensive vascular calcifications present. There is no air within the soft tissues. Osteoarthritic changes are present within the knee. There are no acute fractures. Degenerative changes are also present within the ankle. There is muscular atrophy. IMPRESSION: 1. Degenerative changes within the knee and ankle 2. Small joint effusion involving the knee 3. No acute fractures. No destructive lesions are visualized 4. Diffuse edema. 5. Vascular calcifications Electronically signed by: Josue Martinez M.D. 07/18/2016 7:11 AM Dictated Date/Time: 07/18/2016 7:08 AM
[2016-07-18] MEDS ORDERED: ASPIRIN 81 MG ECTAB PO ONE (07:15)
--- NOTE | 2016-07-18 07:20 | DIAGNOSTIC IMAGING REPORT ---
LEFT ANKLE 2 VIEWS CLINICAL HISTORY: LT ANKLE PAIN COMPARISON: None. DISCUSSION: There are vascular calcifications present. There are surgical clips within the medial soft tissues. There is medial soft tissue swelling. There are no acute fractures. Small bony densities located adjacent the lateral malleolar tip are felt to be old. The ankle mortise appears intact. IMPRESSION: 1. No acute fractures 2. Soft tissue edema. Electronically signed by: Josue Martinez M.D. 07/18/2016 7:19 AM Dictated Date/Time: 07/18/2016 7:18 AM
[2016-07-18] MEDS: LACTOBACILLUS ACIDOPHILUS (FLORANEX) TAB PO SCH ×3 (07:41→17:44)
[2016-07-18] MEDS: CIPROFLOXACIN 250 MG TAB PO SCH ×2 (07:41→23:05)
[2016-07-18] MEDS: DOXYCYCLINE HYCLATE 100 MG CAP PO SCH ×2 (07:41→23:05)
[2016-07-18] MEDS: CARVEDILOL 3.125 MG TAB PO SCH ×2 (07:42→23:05)
[2016-07-18] MEDS: PANTOprazole SOD 40 MG TAB PO SCH ×2 (07:42→21:00)
[2016-07-18] MEDS: DOCUSATE SODIUM/SENNA 50/8.6MG TAB PO SCH (07:43)
[2016-07-18] MEDS: CEROVITE ADV FORMULA TAB PO SCH (07:43)
[2016-07-18] MEDS ORDERED: DOXYCYCLINE HYCLATE 100 MG CAP PO SCH (09:00)
[2016-07-18] MEDS ORDERED: CIPROFLOXACIN CONSULT ACTIVE PRN (09:00)
[2016-07-18] MEDS ORDERED: ACETAMINOPHEN 325 MG TAB PO ONE (11:00)
[2016-07-18 11:53] LABS: HEMATOCRIT 23.7 % (42-52)
[2016-07-18] MEDS ORDERED: FUROSEMIDE INJ 20 MG in SYRINGE 0 ML IV SCH (12:00)
[2016-07-18 12:17] LABS: FERRITIN 537.9 ng/ml (8.0-388.0)
--- NOTE | 2016-07-18 12:42 | CARDIOLOGY CONSULTATION ---
DATE OF CONSULTATION: 07/18/2016 REFERRING PHYSICIAN: Dr. John Maradiaga. REASON FOR CONSULTATION: Atrial fibrillation with rapid ventricular response, elevated troponin. CHIEF COMPLAINT ON ADMISSION: Leg pain, weakness. HISTORY OF PRESENT ILLNESS: Mr. Macedo is an 80-year-old gentleman who presented to the Emergency Department with weakness, leg pain, and inability to stand. He is residing at [facility]. ECG demonstrated atrial fibrillation with rapid ventricular response. He was treated with intravenous digoxin with subsequent improvement in his heart rate. His ECGs also demonstrated ischemic anterolateral ST depressions. The patient denies any chest discomfort or unusual shortness of breath. Recently hospitalized regarding acute renal insufficiency where diuretics where temporarily held, however, restarted at the time of discharge. His renal function appears relatively stable. He was mildly hypotensive on admission and his dose of carvedilol has been reduced. Currently, telemetry demonstrates atrial fibrillation with an average heart rate of 85 beats per minute. The patient is essentially bedbound with bilateral heel ulcers. He offers no other complaints at this time. REVIEW OF SYSTEMS: The pertinent positives are noted above. Comprehensive 10-system review otherwise negative. PAST MEDICAL HISTORY: 1. Chronic coronary disease with chronic class 2-3 angina pectoris and coronary artery bypass grafting x5 in September of 1994. 2. Chronic atrial fibrillation on chronic anticoagulation. 3. Pulmonary embolus diagnosed in 2012. 4. Hypertension. 5. Dyslipidemia. 6. Diabetes with neuropathy, nephropathy, and gastroparesis. 7. Obstructive sleep apnea on CPAP with oxygen supplementation. 8. Veloz's esophagitis. 9. Dyslipidemia. PAST SURGICAL HISTORY: 1. Knee replacement. 2. Coronary artery bypass grafting x5 in 1994. FAMILY HISTORY: Negative for premature CAD or sudden cardiac , however, noncontributory given patient's advanced age. SOCIAL HISTORY: Remote former tobacco abuse. He quit more than 50 years ago. Currently, resides at [facility]. ALLERGIES: THIOPENTAL. CURRENT OUTPATIENT MEDICATIONS: 1. Carvedilol 37.5 mg in the a.m., 25 mg in the evening. 2. Ascorbic acid 500 mg b.i.d. 3. Ciprofloxacin 250 mg twice daily. 4. Doxycycline 100 mg twice daily. 5. Furosemide 40 mg in the evening, 80 mg in the morning. 6. NovoLog 70/30 55 units in the a.m., 45 units in the evening. 7. Lisinopril 40 mg daily. 8. Remeron 15 mg at bedtime. 9. Prilosec 20 mg twice daily. 10. Klor-Con 40 mEq daily. 11. Crestor 10 mg daily. 12. Trazodone 50 mg daily. 13. Warfarin 10 mg daily. 14. Tylenol as needed. 15. Percocet as needed. 16. Nitrostat as needed. 17. Tramadol as needed. Telemetry demonstrates atrial fibrillation, controlled ventricular response, short salvos of nonsustained ventricular tachycardia recorded overnight. IMAGING DATA: Chest x-ray demonstrates mild pulmonary edema and cardiomegaly. LABORATORY DATA: Sodium 143, potassium 4.3, chloride is 107, CO2 is 25, BUN is 43, and creatinine is 1.70. Troponin 5.740. White blood cell count 6.89, hemoglobin is 7.6, platelet count is 225. INR is 4.0. Initial ECG atrial fibrillation with rapid ventricular response, marked anterior lateral ST-T wave abnormality. Repeat ECG performed this a.m. demonstrates atrial fibrillation with controlled ventricular response and anterolateral ST depressions which are less prominent compared to prior tracing. PHYSICAL EXAMINATION: VITAL SIGNS: Temperature is 36.8 degrees centigrade, pulse is 85 beats per minute and irregular, respiratory rate is 18 breaths per minute, blood pressure 121/60, and SaO2 is 96% on room air. GENERAL: NAD, chronically ill, obese. HEENT: His mucous membranes are moist. No scleral icterus. Conjunctivae pink. NECK: Veins are flat without JVD or HJR. HEART: Irregular with a normal S1 and S2. There is a soft 1/6 systolic ejection murmur heard best at the right second intercostal space without radiation. LUNGS: Demonstrate crackles at the bases bilaterally. No rhonchi or wheeze. ABDOMEN: Soft, nontender. No rebound or guarding. Normal bowel sounds. EXTREMITIES: Warm and dry, bilateral pressure ulcers. There is +1 bilateral pedal edema. NEUROLOGIC: Could not be completely assessed, however, patient moves all extremities without restriction. No facial asymmetry or slurred speech. FINAL IMPRESSION: 1. Complex 80-year-old male admitted with profound weakness from [facility] which is multifactorial including anemia, rapid atrial fibrillation, type 2 Non-ST elevation myocardial infarction. 2. Hypotension on admission related to rapid atrial fibrillation, mild volume depletion. 3. Anemia with supratherapeutic INR -- no obvious signs of bleeding currently. Hemoglobin has trended down to 7.6 with repeat assessment pending. 4. Chronic kidney disease stage III-IV -- creatinine relatively stable. 5. Ischemic cardiomyopathy with history of remote coronary artery bypass grafting in 1994. Most recent ejection fraction is 40-45%. Subjectively more edema on exam, however, suspect intravascular volume depletion based on vital signs and clinical studies. 6. Hypertension -- well controlled with borderline hypotension. 7. Diabetes type 2, requiring insulin. 8. Bilateral heel decubitus ulcers on outpatient Cipro and doxycycline from the wound clinic. PLAN AND RECOMMENDATIONS: Warfarin will remain on hold with supratherapeutic INR. There are no obvious signs of bleeding. We would recommend repeating INR in the a.m. We would recommend reversal of anticoagulation with any signs of GI, blood loss, or epistaxis. Carvedilol has been reduced to 3.125 mg daily. We will continue to monitor closely and consider transition to cardioselective beta-leah pending blood pressure assessments during hospitalization. Furosemide will also remain on hold today with plans for repeat lab testing and clinical evaluation of volume status in the a.m. In regard to the patient's elevated troponin, I suspect this is related to rapid atrial fibrillation and anemia. He has no anginal symptoms at rest. Overall, conservative medical management recommended at this time. We will continue to follow closely during hospitalization. Thank you for allowing me to take part in the care of your patient. CARRI
[2016-07-18 16:18] LABS: URINE APPEARANCE CLEAR (CLEAR); URINE BILIRUBIN NEG (NEG); URINE COLOR YELLOW; URINE NITRITE NEG (NEG); URINE PH 5.5 (4.5-7.5); URINE SPECIFIC GRAVITY 1.013 (1.000-1.030); UROBILINOGEN NEG (NEG); ZZUR CULT IF INDIC CLEAN CATCH NO
[2016-07-18 16:23] LABS: MANUAL MICROSCOPIC REQUIRED? NO; REVIEW REQ? NO
[2016-07-18] MEDS: BOOST VANILLA PUDDING CUP PO SCH (17:43)
--- NOTE | 2016-07-18 19:36 | Progress Note ---
Internal Med Progress Note Date of Service: Jul 18, 2016. Provider Documentation: SUBJECTIVE: resting comfortably denies any pain says feeling much better today afebrile hemodynamics stable OBJECTIVE: Vital Signs-as noted below Exam: General-alert and awake. Not in distress ENT-Normal hearing Neck-no neck masses, supple Lungs-cta b/l no wheezing or crackles Heart-s1 and s2 heard irregular , no murmurs Abdomen-soft bowel sounds present non tender no distension Extremities- no erythema Neuro-alert and awake moves extremities Lab data as noted below. ASSESSMENT & PLAN: 1. Rapid Afib INR supratherapeutic. multifactorial received digoxin and rates under control now on coreg close monitor cardiology on board. Nstemi troponin elevated to 8.4 asymptomatic mostly demand ischemia from rapid a fib and anemia sen by cardiology and appreciate inputs will monitor. Anemia hb 7.5 no signs of active bleeding Gi consulted transfused one unit spiked temp while transfusion will try to transfuse one more units f/u labs. LE pain poss R knee gout (px co of pain on the R knee and both ankles for weeks now; hx gouty crystals on R knee aspirate sp intra=articular steroid injection last month) currently pains are better consulted rheumatology agitation/disorientation. (? home meds, ?new Cipro rx) stable now f/u labs in am ARF on CRI 2 to illness, ? mild clinical dehydration f/u labs Chronic systolic heart failure secondary to ischemia cardiomyopathy, EF 40-45% equivocal volume status mild congestion on CXR stable weight however received a dose of iv lasix with prbc will monitor Coronary artery disease, status post coronary artery bypass graft.On aspirin, coreg and statin. Hypertension. Blood pressure on the lower side. DM2, insulin requiring, suboptimal control as of recent HgA1c 8.9 in 06/2016. BG currently on the lower side. On ISS. Will monitor. Right heel, sacral decubiti wounds,as per h and P: improving as per recent outpx C eval hx MRSA, Pseudomonas on recent outpx wound CS from R heel wound px currently on outpx Cipro and Doxycycline rx from [facility]. DVT PROPHYLAXIS inr supra therapeutic DISPOSITION close monitor in pcu Vital Signs: Date Time Temp Pulse Resp B/P (MAP) Pulse Ox O2 Delivery O2 Flow Rate FiO2 07/18/16 16:00 Room Air 07/18/16 16:00 37.0 89 20 99/64 (76) 94 Room Air 07/18/16 14:56 37.7 109 18 99/62 (74) 90 07/18/16 14:45 37.8 109 18 93/56 91 07/18/16 14:16 36.7 96 18 95/59 91 07/18/16 13:55 36.7 107 16 112/71 92 07/18/16 12:00 Room Air 07/18/16 11:41 36.8 74 18 106/64 (78) 96 07/18/16 08:00 Room Air 07/18/16 07:41 36.8 95 18 121/61 (81) 96 07/18/16 06:19 101 99/61 (74) 07/18/16 04:52 37.4 104 18 90/52 (65) 94 Room Air 07/18/16 04:00 Room Air 07/18/16 00:01 107 07/18/16 00:00 Room Air 07/17/16 23:41 37.2 109 18 95/56 (69) 96 07/17/16 22:20 107 07/17/16 21:41 36.7 109 21 102/61 (75) 96 Room Air 07/17/16 21:11 105 18 102/68 96 Nasal Cannula 3.0 07/17/16 21:07 Nasal Cannula 3.0 07/17/16 20:26 120 104/63 07/17/16 20:25 116 07/17/16 20:24 106 16 104/63 99 Nasal Cannula 3.0 Lab Results: Results Past 24 Hours Test 07/18/16 05:30 07/18/16 07:07 07/18/16 11:18 07/18/16 11:30 Range/Units White Blood Count 6.89 4.8-10.8 K/uL Red Blood Count 2.71 4.7-6.1 M/uL Hemoglobin 7.6 7.5 14.0-18.0 g/dL Hematocrit 23.7 23.7 42-52 % Mean Corpuscular Volume 87.5 80-100 fL Mean Corpuscular Hemoglobin 28.0 25-34 pg Mean Corpuscular Hemoglobin Concent 32.1 32-36 g/dl Platelet Count 225 130-400 K/uL Mean Platelet Volume 8.3 7.4-10.4 fL Neutrophils (%) (Auto) 68.2 % Lymphocytes (%) (Auto) 15.4 % Monocytes (%) (Auto) 12.8 % Eosinophils (%) (Auto) 2.9 % Basophils (%) (Auto) 0.4 % Neutrophils # (Auto) 4.70 1.4-6.5 K/uL Lymphocytes # (Auto) 1.06 1.2-3.4 K/uL Monocytes # (Auto) 0.88 0.11-0.59 K/uL Eosinophils # (Auto) 0.20 0-0.5 K/uL Basophils # (Auto) 0.03 0-0.2 K/uL RDW Standard Deviation 59.9 36.4-46.3 fL RDW Coefficient of Variation 18.6 11.5-14.5 % Immature Granulocyte % (Auto) 0.3 % Immature Granulocyte # (Auto) 0.02 0.00-0.02 K/uL Poikilocytosis PRESENT Anisocytosis PRESENT Prothrombin Time 45.7 9.0-12.0 SECONDS Prothromb Time International Ratio 4.0 0.9-1.1 Sodium Level 143 136-145 mmol/L Potassium Level 4.3 3.5-5.1 mmol/L Chloride Level 107 98-107 mmol/L Carbon Dioxide Level 25 21-32 mmol/L Anion Gap 11.0 3-11 mmol/L Blood Urea Nitrogen 43 7-18 mg/dl Creatinine 1.70 0.60-1.40 mg/dl Est Creatinine Clear Calc Drug Dose 50.0 ml/min Estimated GFR () 43.2 Estimated GFR (Non- 37.3 BUN/Creatinine Ratio 25.2 10-20 Random Glucose 99 70-99 mg/dl Lactic Acid Level 1.0 0.4-2.0 mmol/L Calcium Level 8.5 8.5-10.1 mg/dl Magnesium Level 2.2 1.8-2.4 mg/dl Troponin I 5.740 8.470 0-0.045 ng/ml Bedside Glucose 120 135 70-99 mg/dl Iron Level 23 35-175 mcg/dl Total Iron Binding Capacity 199 250-450 mcg/dl Transferrin 125 200-360 mg/dl Transferrin % Saturation 13 20-50 % Ferritin 537.9 8.0-388.0 ng/ml Test 07/18/16 15:30 07/18/16 16:03 Range/Units Urine Color YELLOW Urine Appearance CLEAR CLEAR Urine pH 5.5 4.5-7.5 Urine Specific [place] 1.013 1.000-1.030 Urine Protein NEG NEG Urine Glucose (UA) NEG NEG Urine Ketones NEG NEG Urine Occult Blood NEG NEG Urine Nitrite NEG NEG Urine Bilirubin NEG NEG Urine Urobilinogen NEG NEG Urine Leukocyte Esterase NEG NEG Urine RBC (Auto) 0-4 0-4 /hpf Bedside Glucose 158 70-99 mg/dl
[2016-07-18] MEDS: PROSOURCE NOCARB 30ML/PKT PO SCH (21:00)
[2016-07-18] MEDS: ROSUVASTATIN CALCIUM 10 MG TAB PO SCH (21:00)
[2016-07-19] VITALS (15 sets, daily range): BP systolic 96–137; BP diastolic 57–71; PULSE 71–100; TEMP 36.5–37.6; O2SAT 94–98
[2016-07-19] MEDS: INSULIN ASPART 100 UNITS/ML 3 ML PEN SC SCH ×4 (07:00→20:40)
--- NOTE | 2016-07-19 07:23 | Rheumatology Consultation ---
Rheumatology Consultation Date of Consultation: Jul 19, 2016. Requesting Physician: Dr Louise Attending Physician: Dr Louise Reason for Consultation: gout History of Present Illness Mr Macedo is an 80 y/o male who was admitted to [facility] for worsening gout pains in his ankles and right knee along with a fib. He has had several recent admissions to [facility] for various health concerns. He has known CAD and ischemic cardiomyopathy, CKD stage 3, DM. In early June had swollen right knee while here at [facility] and Dr Raza aspirated the knee that showed 100K WBC's with uric acid crystals present. Knee had improved with injection and treatment at that time. He has been at [facility] secondary to these multiple admissions. He previous lives in a care home apartment complex in [place]. He has had previous left TKA, left rotator cuff surgery and normally gets around with a walker. He reports that at [facility] he has not been that mobile. He reports that today his pain is a little better. has not been out of bed. His heart rate is better. He denies any other complaints other than joint pain. Rating pain at 4/10. He has no known history of gout prior to his June Admission. Sees Dr Ryder at [facility]. He has been confused at times as per nursing staff. He was examined lying comfortably in bed. He reports he has not been out of bed since being here at [facility]. Labs from early june show uric acid level of 7.2. no uric acid this admission. His GFR is stable at mid 30's, he is anemic as well. He denies any family history of gout. Past Medical/Surgical History Medical History: coronary artery disease, diabetes, gout, osteoarthritis Surgical History: orthopedic surgery (left TKA, left rotator cuff surgery), other (CABG) Family History no family history of gout Social History Smoking Status: Never Smoker History of Alcohol Use: No Drug Use: none Marital Status: Housing Status: assisted Occupation Status: retired Review of Systems Constitutional: + weakness, No fever, No chills Respiratory: No wheezing, No shortness of breath Cardiac: + see HPI, + edema, No chest pain Abdomen: No pain, No nausea Musculoskeletal: + see HPI All Other Systems: Reviewed and Negative Allergies Coded Allergies: NO KNOWN DRUG ALLERGIES (Verified Allergy, Unknown, ., 07/17/16) Medications Current Inpatient Medications Medications (Trade) Dose Ordered Sig/Aileen Route Start Time Stop Time Status Last Admin Dose Admin Insulin Aspart (novoLOG ASPART) SLIDING SCALE If C... ACHS SC 07/18/16 07:00 08/17/16 06:59 Glucose (Glucose 40% Gel) 15-30 GRAMS 15 GRAMS... UD PRN PO 07/17/16 21:30 08/16/16 21:29 Glucose (Glucose Chew Tab) 4-8 Tablets 4 Tabl... UD PRN PO 07/17/16 21:30 08/16/16 21:29 Dextrose (Dextrose 50% 50ML Syringe) 25-50ML OF 50% DW IV FOR... UD PRN IV 07/17/16 21:30 08/16/16 21:29 Glucagon (Glucagon Inj) 1 mg UD PRN SQ 07/17/16 21:30 08/16/16 21:29 Acetaminophen (Tylenol Tab) 650 mg Q6H PRN PO 07/17/16 21:30 08/16/16 21:29 Carvedilol (Coreg Tab) 3.125 mg BID PO 07/18/16 09:00 08/17/16 08:59 07/18/16 23:05 3.125 MG Acetaminophen/ Hydrocodone Bitart (Basco 5/325 Tab) 1 tab Q6H PRN PO 07/17/16 21:30 07/31/16 21:29 Multivitamins/ Minerals (Multivitamin W/ Minerals Tab) 1 tab QAM PO 07/18/16 09:00 08/17/16 08:59 07/18/16 07:43 1 TAB Nitroglycerin (Nitrostat Tab) 0.4 mg PRN PRN UT 07/17/16 21:30 08/16/16 21:29 Rosuvastatin Calcium (Crestor Tab) 10 mg QPM PO 07/18/16 21:00 08/17/16 20:59 Senna/Docusate Sodium (Senokot S Tab) 1 tab QAM PO 07/18/16 09:00 08/17/16 08:59 07/18/16 07:43 1 TAB Tramadol HCl (Ultram Tab) pain not relieved by tylenol Q6H PRN PO 07/17/16 21:30 08/16/16 21:29 07/18/16 00:01 25 MG Pantoprazole Sodium (Protonix Tab) 40 mg BID PO 07/18/16 09:00 08/17/16 08:59 07/18/16 07:42 40 MG Haloperidol (Haldol Tab) 2 mg Q4H PRN PO 07/17/16 21:30 08/16/16 21:29 Hydromorphone HCl (Dilaudid Inj) 0.5 mg Q4H PRN IV 07/17/16 21:30 07/31/16 21:29 Ipratropium [place] (Atrovent 0.02% 0.5MG/2.5ML Neb) 0.5 mg Q4H PRN INH 07/17/16 22:00 08/16/16 21:59 Levalbuterol (Xopenex 1.25MG/ 0.5ML Neb) 1.25 mg Q4H PRN INH 07/17/16 22:00 08/16/16 21:59 Doxycycline Hyclate (Vibramycin Cap) 100 mg BID PO 07/18/16 09:00 07/28/16 08:59 07/18/16 23:05 100 MG Ciprofloxacin (Consult) 1 ea DAILY PRN N/A 07/18/16 09:00 08/17/16 08:59 Lactobacillus Acidophilus (Floranex Tab) 4 tab TIDM PO 07/18/16 07:30 08/17/16 07:29 07/18/16 17:44 4 TAB Ciprofloxacin (Ciprofloxacin Tab) 250 mg BID PO 07/18/16 09:00 07/29/16 08:59 07/18/16 23:05 250 MG Aspirin (Ecotrin Tab) 81 mg QAM PO 07/19/16 09:00 08/18/16 08:59 Enteral Nutritional Formula (Prosource No Carb) 30 ml BID PO 07/18/16 21:00 08/17/16 20:59 Enteral Nutritional Formula (Boost Pudding) 1 cup TIDM PO 07/18/16 16:45 08/17/16 16:44 Insulin Glargine (Lantus Solostar Pen) 5 unit DAILY SC 07/19/16 09:00 08/18/16 08:59 Physical Exam Date Time Temp Pulse Resp B/P (MAP) Pulse Ox O2 Delivery O2 Flow Rate FiO2 07/19/16 04:00 Room Air 07/19/16 02:47 37.4 100 20 112/65 (81) 94 Room Air 07/18/16 23:59 Room Air 07/18/16 23:08 37.0 102 20 100/60 (73) 93 Room Air 07/18/16 20:18 37.1 95 20 116/68 (84) 96 Room Air 07/18/16 20:00 Room Air 07/18/16 16:00 Room Air 07/18/16 16:00 37.0 89 20 99/64 (76) 94 Room Air 07/18/16 14:56 37.7 109 18 99/62 (74) 90 07/18/16 14:45 37.8 109 18 93/56 91 07/18/16 14:16 36.7 96 18 95/59 91 07/18/16 13:55 36.7 107 16 112/71 92 07/18/16 12:00 Room Air 07/18/16 11:41 36.8 74 18 106/64 (78) 96 07/18/16 08:00 Room Air 07/18/16 07:41 36.8 95 18 121/61 (81) 96 General Appearance: WD/WN, no apparent distress, + pertinent finding (confused at times) Respiratory: chest non-tender, lungs clear, normal breath sounds, no respiratory distress Cardiovascular: + pertinent finding (irregular rate, 2/6 COLBY) Abdomen: normal bowel sounds, non tender, soft Musculoskeletal: + tenderness right joint line ? trace effusion right knee + pain with ROM of both ankles no visible gouty tophi replaced left knee Laboratory Results Last 24 Hours Test 07/18/16 11:18 07/18/16 11:30 07/18/16 15:30 07/18/16 16:03 Bedside Glucose 135 mg/dl 158 mg/dl Hemoglobin 7.5 g/dL Hematocrit 23.7 % Iron Level 23 mcg/dl Total Iron Binding Capacity 199 mcg/dl Transferrin 125 mg/dl Transferrin % Saturation 13 % Ferritin 537.9 ng/ml Troponin I 8.470 ng/ml Urine Color YELLOW Urine Appearance CLEAR Urine pH 5.5 Urine Specific [place] 1.013 Urine Protein NEG Urine Glucose (UA) NEG Urine Ketones NEG Urine Occult Blood NEG Urine Nitrite NEG Urine Bilirubin NEG Urine Urobilinogen NEG Urine Leukocyte Esterase NEG Urine RBC (Auto) 0-4 /hpf Test 07/18/16 20:43 07/19/16 04:44 07/19/16 06:42 Bedside Glucose 162 mg/dl Assessment & Plan Assessment & Plan: Assessment: Mr Macedo is an 80 y/o gentleman with recurrent gouty arthritis x 2 in the last 1 month. Currently resolving gout attack involving the ankles and right knee. He has not been on uric acid lower medication at this point. He has multiple co-morbidities predisposing to gout - DM, CKD. At this point would treat acute attack and the will need to start urate lowering medication with allopurinol once acute attack resolved. Urate lowering medication will be started as an outpatient. Plan: 1. would start pred taper for acute attack - 20mg x 3 days, 15mg x 3 days, 10mg x 3 days then 5 mg daily - monitor BS closely 2. I will start allopurinol as an outpatient once this acute attack has resolved 3. I will arrange outpatient Rheumatology appointment in the next 2-4 weeks 4. Thank you for the consult and involving me in this patient's care
[2016-07-19] MEDS: BOOST VANILLA PUDDING CUP PO SCH ×3 (07:30→16:45)
[2016-07-19] MEDS: CIPROFLOXACIN 250 MG TAB PO SCH ×2 (08:13→20:43)
[2016-07-19] MEDS: ASPIRIN 81 MG ECTAB PO SCH (08:13)
[2016-07-19] MEDS: DOXYCYCLINE HYCLATE 100 MG CAP PO SCH ×2 (08:13→20:42)
[2016-07-19] MEDS: CARVEDILOL 3.125 MG TAB PO SCH (08:13)
[2016-07-19] MEDS: LACTOBACILLUS ACIDOPHILUS (FLORANEX) TAB PO SCH ×3 (08:14→17:09)
[2016-07-19] MEDS: PROSOURCE NOCARB 30ML/PKT PO SCH ×2 (08:18→20:40)
[2016-07-19] MEDS: CEROVITE ADV FORMULA TAB PO SCH (08:19)
[2016-07-19] MEDS: PANTOprazole SOD 40 MG TAB PO SCH ×2 (08:19→20:40)
[2016-07-19] MEDS: DOCUSATE SODIUM/SENNA 50/8.6MG TAB PO SCH (08:19)
[2016-07-19] MEDS: INSULIN GLARGINE SOLOSTAR 100 UNITS/ML 3 ML PEN SC SCH (08:24)
[2016-07-19 08:34] LABS: HEMATOCRIT 23.7 % (42-52); MEAN CELL VOLUME 86.8 fL (80-100); MEAN CORPUSCULAR HEMOGLOBIN 27.8 pg (25-34); MEAN CORPUSCULAR HGB CONC 32.1 g/dl (32-36); MEAN PLATELET VOLUME 8.4 fL (7.4-10.4); PLATELET COUNT 239 K/uL (130-400); RED BLOOD COUNT 2.73 M/uL (4.7-6.1); WHITE BLOOD COUNT 8.29 K/uL (4.8-10.8)
[2016-07-19 08:52] LABS: INR 1.7 (0.9-1.1); PROTHROMBIN TIME (PATIENT) 18.1 SECONDS (9.0-12.0)
--- NOTE | 2016-07-19 08:56 | Gastrointestinal Consultation ---
Gastrointestinal Consultation Date of Consultation: Jul 19, 2016 Attending Physician: Aspen Consulting Physician: Mark Reason for Consultation: anemia History of Present Illness Patient is a 80 year old male with PMH significant for chronic systolic heart failure secondary to ischemic cardiomyopathy (EF 40%), HTN,CAD s/p CABG, hyperlipidemia, CKD, AFib on Coumadin, T2DM, anemia, sleep apnea and gout who presented to the ED for weakness, found to be in afib w/ elevated troponin on 8. GI is consulted for BRODERICK. Pt was seen and evaluated this AM. He tells me his blood count typically runs around 8/9. He denies any abdominal discomfort, black /bloody stools, nausea, hematemesis or coffee ground emesis. He is fatigued and feels week. He tells me his leg pain is terrible this morning. Colonoscopy 2013: One 4 mm polyp in the ascending colon. Resected and retrieved. One 12 mm polyp at the hepatic flexure. Resected and retrieved. One 2 mm polyp in the sigmoid colon. Resected and retrieved. Diverticulosis from sigmoid to descending colon. Otherwise normal to the terminal ileum, with retroflexed views of the ascending colon and rectum. Repeat in 3 years for surveillance EGD 06/28: - No endoscopic esophageal abnormality to explain patient's dysphagia. Esophagus dilated. Dilated. Normal upper third of esophagus, middle third of esophagus and lower third of esophagus. Z-line regular, 45 cm from the incisors. There was no visual evidence of Faria's esophagus. Biopsied. Small hiatus hernia. Normal stomach. Normal examined duodenum. Past Medical/Surgical History Medical Problems: (1) Acute electrocardiogram changes Status: Acute (2) Acute electrocardiogram changes Status: Acute (3) Acute kidney injury Status: Acute (4) Anemia Status: Acute (5) Atrial fibrillation with RVR Status: Acute (6) CHF (congestive heart failure) Status: Acute (7) Dysphagia Status: Acute (8) Edema Status: Acute (9) Hypoglycemia Status: Acute (10) Insulin dependent diabetes mellitus Status: Acute (11) Jaw pain Status: Acute (12) Right leg pain Status: Acute (13) Supratherapeutic INR Status: Acute Past Medical History: HTN, dyslipidemia, T2DM (neuropathy, nephropathy and gastroparesis), CAD w/ CABG x5, afib on coumadin, hx of PE, SHAUNA, hx of colonic polyps (colonoscopy due in 2017), hx of Faria esophagus (EGD due in 2018) Past Surgical History: Knee replacement, CABG x5m, EGD, Colonoscopy Family History No pertinent family history Social History Smoking Status: Never Smoker Drug Use: none Marital Status: Housing Status: lives alone Occupation Status: retired Allergies Coded Allergies: NO KNOWN DRUG ALLERGIES (Verified Allergy, Unknown, ., 07/17/16) Current Medications Home Meds and Scripts Medications Dose Route/Sig Max Daily Dose Days Date Category Dose Instructions Monodox (Doxycycline Monohydrate) 100 Mg Cap 100 Mg PO BID 07/17/16 Reported STARTED 07/15/16 FOR 14 DAYS Cipro (Ciprofloxacin) 250 Mg Tab 250 Mg PO BID 07/17/16 Reported STARTED 07/15/16 FOR 14 DAYS. Crestor (Rosuvastatin Calcium) 10 Mg Tab 10 Mg PO QPM 07/17/16 Reported Coumadin (Warfarin Sod) 10 Mg Tab 10 Mg PO QPM 30 07/17/16 Reported Trazodone (Trazodone HCl) 50 Mg Tab 50 Mg PO HS 07/17/16 Reported Ultram (Tramadol HCl) 50 Mg Tab 50 Mg PO Q6H PRN 07/17/16 Reported Senokot S (Senna/Docusate Sodium) 1 Tab Tab 1 Tab PO QAM 07/17/16 Reported [Protein Liquid] 30 Ml PO BID 07/17/16 Reported Tylenol (Acetaminophen) 325 Mg Tab 650 Mg PO Q6H PRN 07/17/16 Reported Klor-Con (Potassium Chloride) 20 Meq Tabcr 40 Meq PO QAM 07/17/16 Reported Coreg (Carvedilol) 12.5 Mg Tab 25 Mg PO QPM 07/17/16 Reported Mvi With Minerals (Multivitamins/Minerals) Tab 1 Tab PO QAM 07/17/16 Reported Lasix (Furosemide) 40 Mg Tab 80 Mg PO QAM AT 0830 07/17/16 Reported Vitamin D2 (Ergocalciferol) Unknown Strength Tab 50,000 Units PO MONTHLY 07/17/16 Reported Novolog Mix 70/30 (Insulin Aspart Prota 70%/Aspart 30%) Susp 45 SC QPM 07/12/16 Reported Novolog Mix 70/30 (Insulin Aspart Prota 70%/Aspart 30%) Susp 55 SC QAM 07/12/16 Reported [place] 5MG/325MG (Acetaminophen/Hydrocodone Bitart) Tab 1 Tablet PO TID PRN 07/01/16 Reported Vitamin C (Ascorbic Acid) 500 Mg Tab 500 Mg PO BID 06/30/16 Reported Remeron (Mirtazapine) 15 Mg Tab 15 Mg PO HS 02/17/16 Reported Nitrostat (Nitroglycerin) 0.4 Mg Tab 0.4 Mg UT PRN PRN 07/02/15 Reported Coreg (Carvedilol) 12.5 Mg Tab 37.5 Mg PO QAM 07/02/15 Reported Prilosec (Omeprazole) 20 Mg Capcr 20 Mg PO BID 07/02/15 Reported Zestril (Lisinopril) 40 Mg Tab 40 Mg PO QAM 07/02/15 Reported Lasix (Furosemide) 40 Mg Tab 40 Mg PO QPM AT 1630 07/02/15 Reported Review of Systems Constitutional: + weakness, + fatigue, No fever, No chills Respiratory: No cough, No shortness of breath Cardiac: No chest pain, No edema Abdomen: No pain, No nausea, No vomiting, No diarrhea, No constipation, No GI bleeding Musculoskeletal: + problem reported (bilateral leg pain and weakness) Physical Exam Date Time Temp Pulse Resp B/P (MAP) Pulse Ox O2 Delivery O2 Flow Rate FiO2 07/19/16 07:29 37.3 92 20 116/62 (80) 96 Room Air 07/19/16 04:00 Room Air 07/19/16 02:47 37.4 100 20 112/65 (81) 94 Room Air 07/18/16 23:59 Room Air 07/18/16 23:08 37.0 102 20 100/60 (73) 93 Room Air 07/18/16 20:18 37.1 95 20 116/68 (84) 96 Room Air 07/18/16 20:00 Room Air 07/18/16 16:00 Room Air 07/18/16 16:00 37.0 89 20 99/64 (76) 94 Room Air 07/18/16 14:56 37.7 109 18 99/62 (74) 90 07/18/16 14:45 37.8 109 18 93/56 91 07/18/16 14:16 36.7 96 18 95/59 91 07/18/16 13:55 36.7 107 16 112/71 92 07/18/16 12:00 Room Air 07/18/16 11:41 36.8 74 18 106/64 78 96 General Appearance: + mild distress (patient appears uncomfortable and restless in bed) Eyes: PERRL ENT: hearing grossly normal Neck: supple Respiratory/Chest: no respiratory distress, no accessory muscle use, + decreased breath sounds Cardiovascular: no gallop, no JVD, + irregularly irregular Abdomen: normal bowel sounds, soft, no organomegaly Neurologic/Psych: alert, normal mood/affect, oriented x 3 Skin: normal color Laboratory Results Last 24 Hours Test 07/18/16 11:18 07/18/16 11:30 07/18/16 15:30 07/18/16 16:03 Bedside Glucose 135 mg/dl 158 mg/dl Hemoglobin 7.5 g/dL Hematocrit 23.7 % Iron Level 23 mcg/dl Total Iron Binding Capacity 199 mcg/dl Transferrin 125 mg/dl Transferrin % Saturation 13 % Ferritin 537.9 ng/ml Troponin I 8.470 ng/ml Urine Color YELLOW Urine Appearance CLEAR Urine pH 5.5 Urine Specific [place] 1.013 Urine Protein NEG Urine Glucose (UA) NEG Urine Ketones NEG Urine Occult Blood NEG Urine Nitrite NEG Urine Bilirubin NEG Urine Urobilinogen NEG Urine Leukocyte Esterase NEG Urine RBC (Auto) 0-4 /hpf Test 07/18/16 20:43 07/19/16 07:17 07/19/16 08:20 Bedside Glucose 162 mg/dl 129 mg/dl White Blood Count 8.29 K/uL Red Blood Count 2.73 M/uL Hemoglobin 7.6 g/dL Hematocrit 23.7 % Mean Corpuscular Volume 86.8 fL Mean Corpuscular Hemoglobin 27.8 pg Mean Corpuscular Hemoglobin Concent 32.1 g/dl RDW Standard Deviation 59.1 fL RDW Coefficient of Variation 18.5 % Platelet Count 239 K/uL Mean Platelet Volume 8.4 fL Impression Patient is a 80 year old male with normocytic anemia (MCV 86, FE 23, TIBC 199) with a HGB of 7.6 with a baseline HGB around 9. He is symptomatic with weakness and fatigue. Denies any history of black/bloody stools/emesis. GI differentials include malignancy, AVMs, gastritis etc. He carries a history of faria's esophagus and colonic polyps due for colon CA screen in 2017 and barretts screening in 2018. Appears he is on ASA and Coumadin as an outpatient. Differentials were discussed with Mr. Macedo - he is not agreeable to a colonoscopy or EGD and he does not want to discuss this any further currently. I encouraged Mr. Macedo to think about the procedures and to contact us if he is agreeable. Plan Trend H&H Transfuse as needed Monitor stools for s/s of GI blood loss PPI BID I performed a history and physical examination of the patient. I have discussed the patient's case, impression and plan with JOSELIN Esquivel . Her note reflects my findings and plan. Patient does not want invasive testing and given the numerous endoscopies in the past, I agree. Labs and course most c/w anemia of chronic disease. Yonatan Flores MD
[2016-07-19 09:04] LABS: BUN/CREATININE RATIO 26.3 (10-20); CREATININE 1.6 mg/dl (0.60-1.40); POTASSIUM 4.3 mmol/L (3.5-5.1)
[2016-07-19] MEDS ORDERED: NURSING DECISION MEDICATION ORDER SCH (09:15)
[2016-07-19] MEDS ORDERED: EUCERIN CR 120 GM JAR EXT PRN (09:15)
[2016-07-19 09:21] LABS: CALCIUM 8.8 mg/dl (8.5-10.1)
[2016-07-19] MEDS ORDERED: FUROSEMIDE INJ 20 MG in SYRINGE 0 ML IV ONE ×2 (10:00→18:30)
[2016-07-19] MEDS ORDERED: ACETAMINOPHEN 500 MG TAB PO ONE (10:00)
[2016-07-19] MEDS ORDERED: METOPROLOL TARTRATE 25 MG TAB PO ONE (10:18)
--- NOTE | 2016-07-19 10:18 | Cardiology Follow-Up ---
Subjective General Date of Service: Jul 19, 2016. Pt evaluation today including: conversation w/ patient, physical exam, chart review, lab review, review of studies, conversation w/ domestic travel consultant, review of inpatient medication list History of Present Illness The patient is a 80 year old male seen in follow-up. Receiving an additional unit of packed red blood cells today. Complains of fatigue. Denies chest pain, palpitations, or shortness of breath at rest. Telemetry demonstrates atrial fibrillation with average heart rate of 90-95 bpm. Blood pressure has remained stable. Moderate diuresis with isolated dose of furosemide yesterday. Renal function remained stable. Allergies Coded Allergies: NO KNOWN DRUG ALLERGIES (Verified Allergy, Unknown, ., 07/17/16) Social History Smoking Status: Never Smoker Hx Tobacco Use In Past Year?: No Hx Alcohol Use - Type And Amou: No Hx Substance Use - Type And Am: No Problem List Medical Problems: (1) Acute electrocardiogram changes Status: Acute (2) Acute electrocardiogram changes Status: Acute (3) Acute kidney injury Status: Acute (4) Anemia Status: Acute (5) Atrial fibrillation with RVR Status: Acute (6) CHF (congestive heart failure) Status: Acute (7) Dysphagia Status: Acute (8) Edema Status: Acute (9) Hypoglycemia Status: Acute (10) Insulin dependent diabetes mellitus Status: Acute (11) Jaw pain Status: Acute (12) Right leg pain Status: Acute (13) Supratherapeutic INR Status: Acute Review of Systems Respiratory: No cough, No sputum, No wheezing, No shortness of breath Cardiac: + edema, No chest pain, No orthopnea, No palpitations Physical Exam Vital Signs Last Vital Signs Documentation Date Time Temp Pulse Resp B/P (MAP) Pulse Ox O2 Delivery O2 Flow Rate FiO2 07/19/16 09:56 37.2 94 18 125/71 95 07/19/16 08:00 Room Air 07/17/16 21:11 3.0 Physical Exam Constitutional: General Apperance: overweight Level of Distress: chronically ill Head: normocephalic, atraumatic Neck: supple Lungs: Auscultation: no wheezing, no rales/crackles, no rhonchi Cardiovascular: Heart Auscultation: normal S1, normal S2, I/ COLBY, irregular rate rhythm Abdomen: Bowel Sounds: normal Inspection & Palpation: soft, non-distended, no tenderness, guarding & rebound Extremities: no cyanosis, no clubbing, edema, ulcers Neurologic: Cranial Nerves: grossly intact Assessment and Plan Assessment and Plan 1. Complex 80-year-old male assisted patient admitted with profound weakness. - multifactorial including anemia, rapid atrial fibrillation, type 2 NSTEMI 2. Hypotension on admission related to rapid atrial fibrillation, mild volume depletion. - Improved with hydration and reduction in antihypertensive medications 3. Multi-factorial Anemia related to chronic disease, iron deficiency, and supratherapeutic INR - no obvious signs of bleeding - Hemoglobin remains below 8.0 - Oral anticoagulation on hold 4. Chronic kidney disease stage III-IV -- creatinine improved 5. Ischemic cardiomyopathy with history of remote coronary artery bypass grafting in 1994. Most recent ejection fraction is 40-45%. - Patient appears fairly compensated 6. Bilateral heel decubitus ulcers on outpatient Cipro and doxycycline from the wound clinic. PLAN AND RECOMMENDATIONS: Agree with transfusion of additional packed red blood cells today. Will follow H&H. Patient will receive additional dose of intravenous furosemide after transfusion to avoid volume overload. Carvedilol will be transitioned to metoprolol due to borderline resting hypotension as well as borderline rate control on telemetry. Warfarin will remain on hold. Continue low-dose intravenous Lasix daily. Continue to follow daily weight, renal function, and urine output closely. I will continue to follow patient during hospitalization. Laboratory Results Last 24 Hours Test 07/18/16 11:18 07/18/16 11:30 07/18/16 15:30 07/18/16 16:03 Bedside Glucose 135 mg/dl 158 mg/dl Hemoglobin 7.5 g/dL Hematocrit 23.7 % Iron Level 23 mcg/dl Total Iron Binding Capacity 199 mcg/dl Transferrin 125 mg/dl Transferrin % Saturation 13 % Ferritin 537.9 ng/ml Troponin I 8.470 ng/ml Urine Color YELLOW Urine Appearance CLEAR Urine pH 5.5 Urine Specific [place] 1.013 Urine Protein NEG Urine Glucose (UA) NEG Urine Ketones NEG Urine Occult Blood NEG Urine Nitrite NEG Urine Bilirubin NEG Urine Urobilinogen NEG Urine Leukocyte Esterase NEG Urine RBC (Auto) 0-4 /hpf Test 07/18/16 20:43 07/19/16 07:17 07/19/16 08:20 Bedside Glucose 162 mg/dl 129 mg/dl White Blood Count 8.29 K/uL Red Blood Count 2.73 M/uL Hemoglobin 7.6 g/dL Hematocrit 23.7 % Mean Corpuscular Volume 86.8 fL Mean Corpuscular Hemoglobin 27.8 pg Mean Corpuscular Hemoglobin Concent 32.1 g/dl RDW Standard Deviation 59.1 fL RDW Coefficient of Variation 18.5 % Platelet Count 239 K/uL Mean Platelet Volume 8.4 fL Prothrombin Time 18.1 SECONDS Prothromb Time International Ratio 1.7 Sodium Level 139 mmol/L Potassium Level 4.3 mmol/L Chloride Level 104 mmol/L Carbon Dioxide Level 23 mmol/L Anion Gap 12.0 mmol/L Blood Urea Nitrogen 42 mg/dl Creatinine 1.60 mg/dl Est Creatinine Clear Calc Drug Dose 53.4 ml/min Estimated GFR () 46.5 Estimated GFR (Non- 40.1 BUN/Creatinine Ratio 26.3 Random Glucose 139 mg/dl Calcium Level 8.8 mg/dl Troponin I 5.710 ng/ml
--- NOTE | 2016-07-19 10:52 | ECHOCARDIOGRAM REPORT ---
*NOTICE TO RECEIVING [employer] This information is strictly Confidential and protected under [place] law. [place] law prohibits you from making any further disclosure of this information unless further disclosure is expressly permitted by the written consent of the person to whom it pertains or is authorized by law. A general authorization for the release of medical or other information is not sufficient for this purpose. Hospital accepts no responsibility if the information is made available to any other person, INCLUDING THE PATIENT. Interpretation Summary * Name: ZAN SANCHEZ Study Date: 07/18/2016 12:56 PM BP: 95/59 mmHg * Patient Location: .2T\S\E221\S\1 HR: 96 * : 1935 (M/d/yy) Gender: Male Height: 76 in * Age: 80 yrs Ethnicity: CA Weight: 275 lb * Ordering Physician: John Maradiaga * Referring Physician: Padma Weber * Performed By: Gela Smith RDCS * * Reason For Study: Troponin bump * BSA: 2.5 m2 * Compared to prior study, changes are noted. * -- Conclusions -- * Left ventricular systolic function is moderate to severely reduced. * Ejection Fraction = 30-35%. * There are regional wall motion abnormalities as specified. * The right ventricle is mildly dilated. * The right ventricular systolic function is reduced as assessed by tricuspid annular plane systolic excursion (TAPSE) (TAPSE <1.6 cm). * There is moderate mitral regurgitation. * There is mild to moderate tricuspid regurgitation. * Dilated inferior vena cava with reduced collapsability with sniff indicates an elevated right atrial pressure of 15 mmHg Procedure Details * A complete two-dimensional transthoracic echocardiogram was performed (2D, M-mode, Doppler and color flow Doppler). * The study was technically difficult. * A contrast injection of Definity was performed to improve assessment of LV function. * Contrast was injected into an intravenous site in the left arm. * One vial of Definity ultrasound contrast was diluted in normal saline to a total volume of 10 ml. A total of '3' ml of solution was administered during imaging. * Lot # [id number] of Definity utilized for procedure. * Expiration date JUL 31. * The attending nurse who injected the contrast agent was Adrian Morales RN. Left Ventricle * The left ventricle is mildly dilated. * There is no thrombus. * There is mild concentric left ventricular hypertrophy. * Left ventricular systolic function is moderate to severely reduced. * Ejection Fraction = 30-35%. * There are regional wall motion abnormalities as specified. Right Ventricle * The right ventricle is mildly dilated. * The right ventricular systolic function is reduced as assessed by tricuspid annular plane systolic excursion (TAPSE) (TAPSE <1.6 cm). Atria * The left atrium is severely dilated. Mitral Valve * There is moderate mitral annular calcification. * There is no mitral valve stenosis. * There is moderate mitral regurgitation. Tricuspid Valve * The tricuspid valve is not well visualized. * There is no tricuspid stenosis. * There is mild to moderate tricuspid regurgitation. Aortic Valve * The aortic valve is not well visualized. * Aortic valve sclerosis moderate, without significant aortic valvular stenosis. * There is no significant aortic regurgitation. Pulmonic Valve * The pulmonary valve is inadequately visualized, but the Doppler data is adequate for interpretation. * There is no pulmonic valvular stenosis. * There is no significant pulmonary regurgitation. Pericardium/Pleural * There is no pericardial effusion. Great Vessels * The inferior vena cava is moderately dilated. * Dilated inferior vena cava with reduced collapsability with sniff indicates an elevated right atrial pressure of 15 mmHg Left Ventricular Diastolic Function * Pulse wave TDI of the anterior and posterior mitral annulas demonstrates abnormal LV relaxation MMode 2D Measurements and Calculations IVSd 1.2 cm LVIDd 5.0 cm LVIDs 4.3 cm LVPWd 1.4 cm IVS/LVPW 0.85 FS 13.8 % EDV(Teich) 118.6 ml ESV(Teich) 83.7 ml EF(Teich) 29.4 % EDV(cubed) 125.4 ml ESV(cubed) 80.3 ml EF(cubed) 36.0 % LV mass(C)d 257.1 grams LV mass(C)dI 101.3 grams/m\S\2 CO(Teich) 3.2 l/min CI(Teich) 1.3 l/min/m\S\2 SV(Teich) 34.9 ml SI(Teich) 13.7 ml/m\S\2 CO(cubed) 4.1 l/min CI(cubed) 1.6 l/min/m\S\2 SV(cubed) 45.2 ml SI(cubed) 17.8 ml/m\S\2 Ao root diam 3.7 cm Ao root area 10.8 cm\S\2 ACS 1.1 cm LA dimension 4.9 cm asc Aorta Diam 3.5 cm LA/Ao 1.3 LVOT diam 2.0 cm LVOT area 3.1 cm\S\2 LVAd ap4 49.6 cm\S\2 LVLd ap4 9.4 cm EDV(MOD-sp4) 215.0 ml LVAs ap4 39.1 cm\S\2 LVLs ap4 9.5 cm ESV(MOD-sp4) 139.0 ml EF(MOD-sp4) 35.3 % LVAd ap2 53.0 cm\S\2 LVLd ap2 10.0 cm EDV(MOD-sp2) 232.0 ml LVAs ap2 41.6 cm\S\2 LVLs ap2 9.4 cm ESV(MOD-sp2) 154.0 ml EF(MOD-sp2) 33.6 % CO(MOD-sp4) 6.9 l/min CI(MOD-sp4) 2.7 l/min/m\S\2 SV(MOD-sp4) 76.0 ml SI(MOD-sp4) 30.0 ml/m\S\2 CO(MOD-sp2) 7.1 l/min CI(MOD-sp2) 2.8 l/min/m\S\2 SV(MOD-sp2) 78.0 ml SI(MOD-sp2) 30.7 ml/m\S\2 Doppler Measurements and Calculations MV E max carrie 123.6 cm/sec MV dec time 0.15 sec Ao V2 max 166.5 cm/sec Ao max PG 11.1 mmHg Ao max PG (full) 6.9 mmHg BECKY(V,A) 1.9 cm\S\2 BECKY(V,D) 1.9 cm\S\2 LV V1 max PG 4.2 mmHg LV V1 max 102.3 cm/sec MR max carrie 425.3 cm/sec MR max PG 72.4 mmHg MR mean carrie 340.2 cm/sec MR mean PG 50.5 mmHg MR VTI 106.6 cm PA V2 max 97.7 cm/sec PA max PG 3.8 mmHg PA acc slope 938.1 cm/sec\S\2 PA acc time 0.07 sec PI max carrie 122.2 cm/sec PI max PG 6.0 mmHg PI dec slope 186.3 cm/sec\S\2 PI P1/2t 192.0 msec PA pr(Accel) 45.7 mmHg
--- NOTE | 2016-07-19 18:13 | Progress Note ---
Internal Med Progress Note Date of Service: Jul 19, 2016. Provider Documentation: SUBJECTIVE: says doing fine denies chest pain or sob joint pains better afebrile ok for blood transfusion OBJECTIVE: Vital Signs-as noted below Exam: General-alert and awake. Not in distress ENT-Normal hearing Neck-no neck masses, supple Lungs-cta b/l no wheezing or crackles Heart-s1 and s2 heard irregular , no murmurs Abdomen-soft bowel sounds present non tender no distension Extremities- chronic lower extremity edema present Neuro-alert and awake moves extremities Lab data as noted below. ASSESSMENT & PLAN: 1. Rapid Afib INR supratherapeutic on presentation inr 1.7 today received digoxin and rates under control now coreg changed to Lopressor today by cardiology close monitor cardiology on board. Nstemi troponin elevated to 8.4 and trending down asymptomatic mostly demand ischemia from rapid a fib and anemia seen by cardiology and appreciate inputs will monitor. Anemia hb 7.5 no signs of active bleeding Gi consulted couldn't transfused yesterday as developed fever and tachycardia hb 7.6 transfused two units today patient refusing egd or colonoscopy f/u labs. LE pain poss R knee gout (px co of pain on the R knee and both ankles for weeks now; hx gouty crystals on R knee aspirate sp intra=articular steroid injection last month) currently pains are better consulted rheumatology and recommended prednisone and taper and to follow as out patient agitation/disorientation. (? home meds, ?new Cipro rx) stable now f/u labs in am ARF on CRI 2 to illness, ? mild clinical dehydration f/u labs Chronic systolic heart failure secondary to ischemia cardiomyopathy, EF 40-45% equivocal volume status mild congestion on CXR stable weight however received a dose of iv lasix with prbc to give another [place] after prbc today and also daily iv lasix 20mg echo shows Ef 30-35% Coronary artery disease, status post coronary artery bypass graft.On aspirin, coreg and statin. Hypertension. Blood pressure on the lower side. DM2, insulin requiring, suboptimal control as of recent HgA1c 8.9 in 06/2016. BG currently on the lower side. On ISS. Will monitor. Right heel, sacral decubiti wounds,as per h and P: improving as per recent outpx WCC eval hx MRSA, Pseudomonas on recent outpx wound CS from R heel wound px currently on outpx Cipro and Doxycycline rx from [facility]. DVT PROPHYLAXIS scds DISPOSITION close monitor in pcu Vital Signs: Date Time Temp Pulse Resp B/P (MAP) Pulse Ox O2 Delivery O2 Flow Rate FiO2 07/19/16 16:00 Room Air 07/19/16 15:30 36.8 82 16 103/63 97 07/19/16 15:26 36.5 74 16 103/63 (76) 97 Room Air 07/19/16 14:25 36.6 73 16 97/59 97 07/19/16 13:53 37.0 76 16 96/57 94 07/19/16 13:53 37.0 71 16 96/57 96 07/19/16 13:29 36.9 84 16 98/61 96 07/19/16 13:09 36.8 80 16 97/58 98 07/19/16 12:02 37.0 84 16 102/58 96 07/19/16 12:00 Room Air 07/19/16 11:04 37.3 91 16 106/65 94 07/19/16 10:32 37.2 90 16 124/69 94 07/19/16 10:18 37.2 89 18 115/69 94 07/19/16 09:56 37.2 94 18 125/71 95 07/19/16 08:00 Room Air 07/19/16 07:29 37.3 92 20 116/62 (80) 96 Room Air 07/19/16 04:00 Room Air 07/19/16 02:47 37.4 100 20 112/65 (81) 94 Room Air 07/18/16 23:59 Room Air 07/18/16 23:08 37.0 102 20 100/60 (73) 93 Room Air 07/18/16 20:18 37.1 95 20 116/68 (84) 96 Room Air 07/18/16 20:00 Room Air Lab Results: Results Past 24 Hours Test 07/18/16 20:43 07/19/16 07:17 07/19/16 08:20 07/19/16 10:54 Range/Units Bedside Glucose 162 129 161 70-99 mg/dl White Blood Count 8.29 4.8-10.8 K/uL Red Blood Count 2.73 4.7-6.1 M/uL Hemoglobin 7.6 14.0-18.0 g/dL Hematocrit 23.7 42-52 % Mean Corpuscular Volume 86.8 80-100 fL Mean Corpuscular Hemoglobin 27.8 25-34 pg Mean Corpuscular Hemoglobin Concent 32.1 32-36 g/dl RDW Standard Deviation 59.1 36.4-46.3 fL RDW Coefficient of Variation 18.5 11.5-14.5 % Platelet Count 239 130-400 K/uL Mean Platelet Volume 8.4 7.4-10.4 fL Prothrombin Time 18.1 9.0-12.0 SECONDS Prothromb Time International Ratio 1.7 0.9-1.1 Sodium Level 139 136-145 mmol/L Potassium Level 4.3 3.5-5.1 mmol/L Chloride Level 104 98-107 mmol/L Carbon Dioxide Level 23 21-32 mmol/L Anion Gap 12.0 3-11 mmol/L Blood Urea Nitrogen 42 7-18 mg/dl Creatinine 1.60 0.60-1.40 mg/dl Est Creatinine Clear Calc Drug Dose 53.4 ml/min Estimated GFR () 46.5 Estimated GFR (Non- 40.1 BUN/Creatinine Ratio 26.3 10-20 Random Glucose 139 70-99 mg/dl Calcium Level 8.8 8.5-10.1 mg/dl Troponin I 5.710 0-0.045 ng/ml Test 07/19/16 15:58 Range/Units Bedside Glucose 225 70-99 mg/dl
[2016-07-19] MEDS: METOPROLOL TARTRATE 25 MG TAB PO SCH (20:42)
[2016-07-19] MEDS: ROSUVASTATIN CALCIUM 10 MG TAB PO SCH (20:42)
[2016-07-20] VITALS: BP 137/69; PULSE 85; TEMP 37.4; O2SAT 94
[2016-07-20 04:10] VITALS: BP 119/75; PULSE 74; TEMP 36.9; O2SAT 96
[2016-07-20] MEDS: BOOST VANILLA PUDDING CUP PO SCH ×3 (07:30→17:30)
[2016-07-20 07:40] LABS: INR 1.4 (0.9-1.1); PROTHROMBIN TIME (PATIENT) 15.7 SECONDS (9.0-12.0)
[2016-07-20 07:48] LABS: BASO % 0.1 %; BASO ABS # 0.01 K/uL (0-0.2); COMPLETE YES; EOS % 0.1 %; HEMATOCRIT 27.2 % (42-52); IG% 0.3 %; LYMPH % 10.1 %; LYMPH ABS # 0.68 K/uL (1.2-3.4); MEAN CELL VOLUME 86.1 fL (80-100); MEAN CORPUSCULAR HEMOGLOBIN 28.5 pg (25-34); MEAN CORPUSCULAR HGB CONC 33.1 g/dl (32-36); MEAN PLATELET VOLUME 8.8 fL (7.4-10.4); MONO % 9.8 %; NEUT % 79.6 %; PLATELET COUNT 235 K/uL (130-400); RED BLOOD COUNT 3.16 M/uL (4.7-6.1); WHITE BLOOD COUNT 6.72 K/uL (4.8-10.8)
[2016-07-20 07:50] VITALS: BP 147/83; PULSE 74; TEMP 36.9; O2SAT 97
[2016-07-20 08:09] LABS: BUN/CREATININE RATIO 32.7 (10-20); CREATININE 1.5 mg/dl (0.60-1.40); MAGNESIUM 2.3 mg/dl (1.8-2.4); POTASSIUM 3.9 mmol/L (3.5-5.1)
[2016-07-20 08:32] LABS: CALCIUM 8.4 mg/dl (8.5-10.1)
[2016-07-20] MEDS: CEROVITE ADV FORMULA TAB PO SCH (08:35)
[2016-07-20] MEDS: DOCUSATE SODIUM/SENNA 50/8.6MG TAB PO SCH (08:35)
[2016-07-20] MEDS: METOPROLOL TARTRATE 25 MG TAB PO SCH ×2 (08:35→21:14)
[2016-07-20] MEDS: ASPIRIN 81 MG ECTAB PO SCH (08:35)
[2016-07-20] MEDS: DOXYCYCLINE HYCLATE 100 MG CAP PO SCH ×2 (08:35→21:14)
[2016-07-20] MEDS: FUROSEMIDE INJ 20 MG in SYRINGE 0 ML IV SCH (08:36)
[2016-07-20] MEDS: PANTOprazole SOD 40 MG TAB PO SCH ×2 (08:36→21:15)
[2016-07-20] MEDS: LACTOBACILLUS ACIDOPHILUS (FLORANEX) TAB PO SCH ×3 (08:36→17:31)
[2016-07-20] MEDS: PROSOURCE NOCARB 30ML/PKT PO SCH ×2 (08:37→21:16)
[2016-07-20] MEDS: CIPROFLOXACIN 250 MG TAB PO SCH ×2 (08:37→21:15)
[2016-07-20] MEDS: INSULIN ASPART 100 UNITS/ML 3 ML PEN SC SCH ×4 (08:45→21:22)
[2016-07-20] MEDS: INSULIN GLARGINE SOLOSTAR 100 UNITS/ML 3 ML PEN SC SCH ×2 (08:45→21:23)
--- NOTE | 2016-07-20 11:53 | Cardiology Follow-Up ---
Subjective General Date of Service: Jul 20, 2016. Pt evaluation today including: conversation w/ patient, physical exam, chart review, lab review, review of studies, review of inpatient medication list History of Present Illness The patient is a 80 year old male seen in follow-up. Fatigue improved. s/p 3u PRBC's hgb stable stable. Denies chest pain, palpitations, or shortness of breath at rest. HR improved with transition to metoprolol. Blood pressure has remained stable. Moderate diuresis with isolated dose of furosemide yesterday. Allergies Coded Allergies: NO KNOWN DRUG ALLERGIES (Verified Allergy, Unknown, ., 07/17/16) Social History Smoking Status: Never Smoker Hx Tobacco Use In Past Year?: No Hx Alcohol Use - Type And Amou: No Hx Substance Use - Type And Am: No Problem List Medical Problems: (1) Acute electrocardiogram changes Status: Acute (2) Acute electrocardiogram changes Status: Acute (3) Acute kidney injury Status: Acute (4) Anemia Status: Acute (5) Atrial fibrillation with RVR Status: Acute (6) CHF (congestive heart failure) Status: Acute (7) Dysphagia Status: Acute (8) Edema Status: Acute (9) Hypoglycemia Status: Acute (10) Insulin dependent diabetes mellitus Status: Acute (11) Jaw pain Status: Acute (12) Right leg pain Status: Acute (13) Supratherapeutic INR Status: Acute Review of Systems Respiratory: + dyspnea on exertion, No cough, No sputum, No wheezing, No shortness of breath, No dyspnea at rest, No hemoptysis Cardiac: + edema, No chest pain, No orthopnea, No PND, No claudication, No palpitations Physical Exam Vital Signs Last Vital Signs Documentation Date Time Temp Pulse Resp B/P (MAP) Pulse Ox O2 Delivery O2 Flow Rate FiO2 07/20/16 08:00 Room Air 07/20/16 07:50 36.9 74 18 147/83 (104) 97 07/17/16 21:11 3.0 Physical Exam Constitutional: General Apperance: overweight Level of Distress: chronically ill Head: normocephalic, atraumatic Neck: supple Lungs: Auscultation: no wheezing, no rales/crackles, no rhonchi Cardiovascular: Heart Auscultation: normal S1, normal S2, I/ COLBY, irregular rate rhythm Abdomen: Bowel Sounds: normal Inspection & Palpation: soft, non-distended, no tenderness, guarding & rebound Extremities: no cyanosis, no clubbing, edema, ulcers Neurologic: Cranial Nerves: grossly intact Assessment and Plan Assessment and Plan 1. Complex 80-year-old male [facility] patient admitted with profound weakness. - multifactorial including anemia, rapid atrial fibrillation, type 2 NSTEMI 2. Hypotension on admission related to rapid atrial fibrillation, mild volume depletion. - Improved with hydration, reduction in antihypertensive medications, and transitioning coreg to metoprolol 3. Multi-factorial Anemia related to chronic disease, iron deficiency, and supratherapeutic INR - no obvious signs of bleeding - Hemoglobin stable today s/p 3u PRBC's - Oral anticoagulation on hold 4. Chronic kidney disease stage III-IV -- creatinine improved 5. Ischemic cardiomyopathy with history of remote coronary artery bypass grafting in 1994. Most recent ejection fraction is 40-45%. - Patient appears fairly compensated 6. Bilateral heel decubitus ulcers on outpatient Cipro and doxycycline from the wound clinic. PLAN AND RECOMMENDATIONS: Follow H&H. Warfarin will remain on hold. Continue low-dose intravenous Lasix today. Plan to transition back to PO lasix in AM. Continue to follow daily weight, renal function, and urine output closely. I will continue to follow patient during hospitalization. Laboratory Results Last 24 Hours Test 07/19/16 15:58 07/20/16 06:53 07/20/16 07:13 07/20/16 11:11 Bedside Glucose 225 mg/dl 243 mg/dl 222 mg/dl White Blood Count 6.72 K/uL Red Blood Count 3.16 M/uL Hemoglobin 9.0 g/dL Hematocrit 27.2 % Mean Corpuscular Volume 86.1 fL Mean Corpuscular Hemoglobin 28.5 pg Mean Corpuscular Hemoglobin Concent 33.1 g/dl Platelet Count 235 K/uL Mean Platelet Volume 8.8 fL Neutrophils (%) (Auto) 79.6 % Lymphocytes (%) (Auto) 10.1 % Monocytes (%) (Auto) 9.8 % Eosinophils (%) (Auto) 0.1 % Basophils (%) (Auto) 0.1 % Neutrophils # (Auto) 5.34 K/uL Lymphocytes # (Auto) 0.68 K/uL Monocytes # (Auto) 0.66 K/uL Eosinophils # (Auto) 0.01 K/uL Basophils # (Auto) 0.01 K/uL RDW Standard Deviation 55.9 fL RDW Coefficient of Variation 17.5 % Immature Granulocyte % (Auto) 0.3 % Immature Granulocyte # (Auto) 0.02 K/uL Prothrombin Time 15.7 SECONDS Prothromb Time International Ratio 1.4 Sodium Level 141 mmol/L Potassium Level 3.9 mmol/L Chloride Level 107 mmol/L Carbon Dioxide Level 23 mmol/L Anion Gap 11.0 mmol/L Blood Urea Nitrogen 49 mg/dl Creatinine 1.50 mg/dl Est Creatinine Clear Calc Drug Dose 56.9 ml/min Estimated GFR () 50.2 Estimated GFR (Non- 43.3 BUN/Creatinine Ratio 32.7 Random Glucose 224 mg/dl Calcium Level 8.4 mg/dl Magnesium Level 2.3 mg/dl
[2016-07-20 12:10] VITALS: BP 139/65; PULSE 86; TEMP 36.5; O2SAT 95
--- NOTE | 2016-07-20 16:41 | Progress Note ---
Internal Med Progress Note Date of Service: Jul 20, 2016. Provider Documentation: SUBJECTIVE: sitting on the bed and going to eat his lunch afebrile says he walked few steps in the room denies chest pain or sob 'moved bowels OBJECTIVE: Vital Signs-as noted below Exam: General-alert and awake. Not in distress ENT-Normal hearing Neck-no neck masses, supple Lungs-cta b/l no wheezing or crackles Heart-s1 and s2 heard irregular , no murmurs Abdomen-soft bowel sounds present non tender no distension Extremities- chronic lower extremity edema present Neuro-alert and awake moves extremities Lab data as noted below. ASSESSMENT & PLAN: 1. Rapid Afib INR supratherapeutic on presentation inr 1.4 today received digoxin and rates under control now coreg changed to Lopressor today by cardiology close monitor rates under control now cardiology on board. Nstemi troponin elevated to 8.4 and trending down asymptomatic mostly demand ischemia from rapid a fib and anemia seen by cardiology and appreciate inputs stable will monitor. Anemia hb 7.5 no signs of active bleeding Gi consulted couldn't transfused n as developed fever and tachycardia hb 7.6 transfused two units07/19/16 patient refusing egd or colonoscopy hb 9.0 today f/u labs. LE pain poss R knee gout (px co of pain on the R knee and both ankles for weeks now; hx gouty crystals on R knee aspirate sp intra=articular steroid injection last month) currently pains are better consulted rheumatology and recommended prednisone and taper and to follow as out patient stable agitation/disorientation. (? home meds, ?new Cipro rx) stable now f/u labs in am ARF on CRI 2 to illness, ? mild clinical dehydration f/u labs Chronic systolic heart failure secondary to ischemia cardiomyopathy, EF 40-45% equivocal volume status mild congestion on CXR stable weight however received a dose of iv lasix with prbc ON daily iv lasix 20mg echo shows Ef 30-35% stable Coronary artery disease, status post coronary artery bypass graft.On aspirin, coreg and statin. Hypertension. Blood pressure on the lower side. DM2, insulin requiring, suboptimal control as of recent HgA1c 8.9 in 06/2016. BG currently on the lower side. On ISS. Will monitor. Right heel, sacral decubiti wounds,as per h and P: improving as per recent outpx [facility] eval hx MRSA, Pseudomonas on recent outpx wound CS from R heel wound px currently on outpx Cipro and Doxycycline rx from [facility]. DVT PROPHYLAXIS scds DISPOSITION close monitor in pcu pt/ot social service for d/c planning Vital Signs: Date Time Temp Pulse Resp B/P (MAP) Pulse Ox O2 Delivery O2 Flow Rate FiO2 07/20/16 12:10 36.5 86 18 139/65 (89) 95 07/20/16 12:00 Room Air 07/20/16 08:00 Room Air 07/20/16 07:50 36.9 74 18 147/83 (104) 97 07/20/16 04:10 36.9 74 20 119/75 (90) 96 Room Air 07/20/16 04:00 Room Air 07/20/16 00:00 37.4 85 20 137/69 (91) 94 07/20/16 00:00 Room Air 07/19/16 20:00 Room Air 07/19/16 19:23 37.6 81 16 114/64 (81) 96 Room Air Lab Results: Results Past 24 Hours Test 07/20/16 06:53 07/20/16 07:13 07/20/16 11:11 Range/Units Bedside Glucose 243 222 70-99 mg/dl White Blood Count 6.72 4.8-10.8 K/uL Red Blood Count 3.16 4.7-6.1 M/uL Hemoglobin 9.0 14.0-18.0 g/dL Hematocrit 27.2 42-52 % Mean Corpuscular Volume 86.1 80-100 fL Mean Corpuscular Hemoglobin 28.5 25-34 pg Mean Corpuscular Hemoglobin Concent 33.1 32-36 g/dl Platelet Count 235 130-400 K/uL Mean Platelet Volume 8.8 7.4-10.4 fL Neutrophils (%) (Auto) 79.6 % Lymphocytes (%) (Auto) 10.1 % Monocytes (%) (Auto) 9.8 % Eosinophils (%) (Auto) 0.1 % Basophils (%) (Auto) 0.1 % Neutrophils # (Auto) 5.34 1.4-6.5 K/uL Lymphocytes # (Auto) 0.68 1.2-3.4 K/uL Monocytes # (Auto) 0.66 0.11-0.59 K/uL Eosinophils # (Auto) 0.01 0-0.5 K/uL Basophils # (Auto) 0.01 0-0.2 K/uL RDW Standard Deviation 55.9 36.4-46.3 fL RDW Coefficient of Variation 17.5 11.5-14.5 % Immature Granulocyte % (Auto) 0.3 % Immature Granulocyte # (Auto) 0.02 0.00-0.02 K/uL Prothrombin Time 15.7 9.0-12.0 SECONDS Prothromb Time International Ratio 1.4 0.9-1.1 Sodium Level 141 136-145 mmol/L Potassium Level 3.9 3.5-5.1 mmol/L Chloride Level 107 98-107 mmol/L Carbon Dioxide Level 23 21-32 mmol/L Anion Gap 11.0 3-11 mmol/L Blood Urea Nitrogen 49 7-18 mg/dl Creatinine 1.50 0.60-1.40 mg/dl Est Creatinine Clear Calc Drug Dose 56.9 ml/min Estimated GFR () 50.2 Estimated GFR (Non- 43.3 BUN/Creatinine Ratio 32.7 10-20 Random Glucose 224 70-99 mg/dl Calcium Level 8.4 8.5-10.1 mg/dl Magnesium Level 2.3 1.8-2.4 mg/dl
[2016-07-20 19:00] VITALS: BP 115/67; PULSE 76; TEMP 37; O2SAT 96
[2016-07-20] MEDS: ROSUVASTATIN CALCIUM 10 MG TAB PO SCH (21:15)
[2016-07-20 23:08] VITALS: BP 128/68; PULSE 67; TEMP 37.2; O2SAT 96
[2016-07-21 04:01] VITALS: BP 137/70; PULSE 73; TEMP 36.5; O2SAT 98
[2016-07-21 05:51] LABS: BASO % 0.1 %; BASO ABS # 0.01 K/uL (0-0.2); COMPLETE YES; EOS % 1.3 %; HEMATOCRIT 28.3 % (42-52); IG% 0.3 %; LYMPH % 13.8 %; LYMPH ABS # 0.96 K/uL (1.2-3.4); MEAN CELL VOLUME 86.5 fL (80-100); MEAN CORPUSCULAR HEMOGLOBIN 28.1 pg (25-34); MEAN CORPUSCULAR HGB CONC 32.5 g/dl (32-36); MEAN PLATELET VOLUME 8.8 fL (7.4-10.4); MONO % 9.8 %; NEUT % 74.7 %; PLATELET COUNT 251 K/uL (130-400); RED BLOOD COUNT 3.27 M/uL (4.7-6.1); WHITE BLOOD COUNT 6.95 K/uL (4.8-10.8)
[2016-07-21 06:01] LABS: INR 1.4 (0.9-1.1); PROTHROMBIN TIME (PATIENT) 15.2 SECONDS (9.0-12.0)
[2016-07-21 06:27] LABS: BUN/CREATININE RATIO 34.2 (10-20); CALCIUM 8.2 mg/dl (8.5-10.1); CREATININE 1.6 mg/dl (0.60-1.40); MAGNESIUM 2.4 mg/dl (1.8-2.4); POTASSIUM 3.5 mmol/L (3.5-5.1)
[2016-07-21] MEDS: BOOST VANILLA PUDDING CUP PO SCH ×3 (07:30→16:45)
[2016-07-21] MEDS: DOXYCYCLINE HYCLATE 100 MG CAP PO SCH ×2 (07:44→19:54)
[2016-07-21] MEDS: LACTOBACILLUS ACIDOPHILUS (FLORANEX) TAB PO SCH ×3 (07:44→16:54)
[2016-07-21] MEDS: FUROSEMIDE INJ 20 MG in SYRINGE 0 ML IV SCH (07:44)
[2016-07-21] MEDS: DOCUSATE SODIUM/SENNA 50/8.6MG TAB PO SCH (07:44)
[2016-07-21] MEDS: METOPROLOL TARTRATE 25 MG TAB PO SCH ×2 (07:45→19:55)
[2016-07-21] MEDS: CEROVITE ADV FORMULA TAB PO SCH (07:45)
[2016-07-21] MEDS: CIPROFLOXACIN 250 MG TAB PO SCH ×2 (07:45→19:56)
[2016-07-21] MEDS: PROSOURCE NOCARB 30ML/PKT PO SCH ×2 (07:45→19:56)
[2016-07-21] MEDS: ASPIRIN 81 MG ECTAB PO SCH (07:45)
[2016-07-21] MEDS: INSULIN ASPART 100 UNITS/ML 3 ML PEN SC SCH ×4 (07:58→21:00)
[2016-07-21] MEDS: INSULIN GLARGINE SOLOSTAR 100 UNITS/ML 3 ML PEN SC SCH ×2 (07:59→21:00)
[2016-07-21 08:00] VITALS: BP 123/67; PULSE 67; TEMP 36.8; O2SAT 96
[2016-07-21] MEDS: PANTOprazole SOD 40 MG TAB PO SCH ×2 (08:14→19:55)
--- NOTE | 2016-07-21 10:06 | Cardiology Follow-Up ---
Subjective General Date of Service: Jul 21, 2016. Pt evaluation today including: conversation w/ patient, physical exam, chart review, lab review, review of studies, review of inpatient medication list History of Present Illness The patient is a 80 year old male seen in follow-up. Fatigue improved. hgb stable. No signs/symptoms of GI blood loss. Denies chest pain, palpitations, or shortness of breath at rest. HR improved with transition to metoprolol. Allergies Coded Allergies: NO KNOWN DRUG ALLERGIES (Verified Allergy, Unknown, ., 07/17/16) Social History Smoking Status: Never Smoker Hx Tobacco Use In Past Year?: No Hx Alcohol Use - Type And Amou: No Hx Substance Use - Type And Am: No Problem List Medical Problems: (1) Acute electrocardiogram changes Status: Acute (2) Acute electrocardiogram changes Status: Acute (3) Acute kidney injury Status: Acute (4) Anemia Status: Acute (5) Atrial fibrillation with RVR Status: Acute (6) CHF (congestive heart failure) Status: Acute (7) Dysphagia Status: Acute (8) Edema Status: Acute (9) Hypoglycemia Status: Acute (10) Insulin dependent diabetes mellitus Status: Acute (11) Jaw pain Status: Acute (12) Right leg pain Status: Acute (13) Supratherapeutic INR Status: Acute Review of Systems Respiratory: No cough, No wheezing, No shortness of breath, No dyspnea on exertion, No dyspnea at rest, No hemoptysis Cardiac: + edema, No chest pain, No orthopnea, No PND, No claudication, No palpitations Physical Exam Vital Signs Last Vital Signs Documentation Date Time Temp Pulse Resp B/P (MAP) Pulse Ox O2 Delivery O2 Flow Rate FiO2 07/21/16 08:00 36.8 67 18 123/67 (85) 96 07/21/16 04:04 Room Air 07/17/16 21:11 3.0 Physical Exam Constitutional: General Apperance: overweight Level of Distress: chronically ill Head: normocephalic, atraumatic Neck: supple Lungs: Auscultation: no wheezing, no rales/crackles, no rhonchi Cardiovascular: Heart Auscultation: normal S1, normal S2, I/ COLBY, irregular rate rhythm Abdomen: Bowel Sounds: normal Inspection & Palpation: soft, non-distended, no tenderness, guarding & rebound Extremities: no cyanosis, no clubbing, edema, ulcers Neurologic: Cranial Nerves: grossly intact Assessment and Plan Assessment and Plan 1. Complex 80-year-old male [facility] patient admitted with profound weakness. - multifactorial including anemia, rapid atrial fibrillation, type 2 NSTEMI 2. Hypotension on admission related to rapid atrial fibrillation, mild volume depletion. - resolved - initially diuretics held; now restarted started 3. Multi-factorial Anemia related to chronic disease, iron deficiency, and supratherapeutic INR - no obvious signs of bleeding - Hemoglobin stable today s/p 3u PRBC's - Oral anticoagulation on hold - Patient declined repeat endoscopy 4. Chronic kidney disease stage III-IV -- creatinine stable 5. Ischemic cardiomyopathy with history of remote coronary artery bypass grafting in 1994 and chronic systolic heart failure. - Patient appears fairly compensated - Repeat echo performed during this admission demonstrates further decline in systolic function. 6. Bilateral heel decubitus ulcers on outpatient Cipro and doxycycline from the wound clinic. PLAN AND RECOMMENDATIONS: Restart warfarin. (Previous dose 5mg MF, 10mg all other days) Follow H&H. Daily INR. Transition to PO lasix this evening. Continue to follow daily weight , renal function, and urine output closely. Laboratory Results Last 24 Hours Test 07/20/16 11:11 07/20/16 16:25 07/20/16 23:16 07/21/16 05:22 Bedside Glucose 222 mg/dl 374 mg/dl 316 mg/dl White Blood Count 6.95 K/uL Red Blood Count 3.27 M/uL Hemoglobin 9.2 g/dL Hematocrit 28.3 % Mean Corpuscular Volume 86.5 fL Mean Corpuscular Hemoglobin 28.1 pg Mean Corpuscular Hemoglobin Concent 32.5 g/dl Platelet Count 251 K/uL Mean Platelet Volume 8.8 fL Neutrophils (%) (Auto) 74.7 % Lymphocytes (%) (Auto) 13.8 % Monocytes (%) (Auto) 9.8 % Eosinophils (%) (Auto) 1.3 % Basophils (%) (Auto) 0.1 % Neutrophils # (Auto) 5.19 K/uL Lymphocytes # (Auto) 0.96 K/uL Monocytes # (Auto) 0.68 K/uL Eosinophils # (Auto) 0.09 K/uL Basophils # (Auto) 0.01 K/uL RDW Standard Deviation 55.8 fL RDW Coefficient of Variation 17.7 % Immature Granulocyte % (Auto) 0.3 % Immature Granulocyte # (Auto) 0.02 K/uL Prothrombin Time 15.2 SECONDS Prothromb Time International Ratio 1.4 Sodium Level 141 mmol/L Potassium Level 3.5 mmol/L Chloride Level 107 mmol/L Carbon Dioxide Level 24 mmol/L Anion Gap 10.0 mmol/L Blood Urea Nitrogen 55 mg/dl Creatinine 1.60 mg/dl Est Creatinine Clear Calc Drug Dose 53.3 ml/min Estimated GFR () 46.5 Estimated GFR (Non- 40.1 BUN/Creatinine Ratio 34.2 Random Glucose 229 mg/dl Calcium Level 8.2 mg/dl Magnesium Level 2.4 mg/dl Test 07/21/16 07:01 Bedside Glucose 222 mg/dl
[2016-07-21 12:19] VITALS: BP 131/69; PULSE 68; TEMP 36.9; O2SAT 93
[2016-07-21 13:38] VITALS: Ht 193 cm; Wt 124.0 kg
[2016-07-21 15:58] VITALS: BP 146/79; PULSE 82; TEMP 36.9; O2SAT 95
[2016-07-21] MEDS ORDERED: WARFARIN SOD 5 MG TAB PO SCH (16:00)
[2016-07-21] MEDS ORDERED: FUROSEMIDE 40 MG TAB PO SCH (17:00)
--- NOTE | 2016-07-21 18:34 | Progress Note ---
Internal Med Progress Note Date of Service: Jul 21, 2016. Provider Documentation: SUBJECTIVE: sitting on the bed comfortably afebrile no chest pain no joint pain no complaints OBJECTIVE: Vital Signs-as noted below Exam: General-alert and awake. Not in distress ENT-Normal hearing Neck-no neck masses, supple Lungs-cta b/l no wheezing or crackles Heart-s1 and s2 heard irregular , no murmurs Abdomen-soft bowel sounds present non tender no distension Extremities- chronic lower extremity edema present Neuro-alert and awake moves extremities Lab data as noted below. ASSESSMENT & PLAN: 1. Rapid Afib INR supratherapeutic on presentation inr 1.4 today received digoxin and rates under control now coreg changed to Lopressor by cardiology close monitor rates under control now cardiology on board. restarted coumadin f/u inr Nstemi troponin elevated to 8.4 and trending down asymptomatic mostly demand ischemia from rapid a fib and anemia seen by cardiology and appreciate inputs stable will monitor. Anemia hb 7.5 no signs of active bleeding Gi consulted couldn't transfused n as developed fever and tachycardia hb 7.6 transfused two units07/19/16 patient refusing egd or colonoscopy hb 9.2 today stable f/u labs. LE pain poss R knee gout (px co of pain on the R knee and both ankles for weeks now; hx gouty crystals on R knee aspirate sp intra=articular steroid injection last month) currently pains are better consulted rheumatology and recommended prednisone and taper and to follow as out patient stable agitation/disorientation. (? home meds, ?new Cipro rx) stable now f/u labs in am ARF on CRI 2 to illness, ? mild clinical dehydration f/u labs cr 1.6 Chronic systolic heart failure secondary to ischemia cardiomyopathy, EF 40-45% equivocal volume status mild congestion on CXR stable weight however received a dose of iv lasix with prbc ON daily iv lasix 20mg echo shows Ef 30-35% started on po Lasix stable Coronary artery disease, status post coronary artery bypass graft.On aspirin, coreg and statin. Hypertension. Blood pressure on the lower side. DM2, insulin requiring, suboptimal control as of recent HgA1c 8.9 in 06/2016. BG currently on the lower side. On ISS. Will monitor. Right heel, sacral decubiti wounds,as per h and P: improving as per recent outpx [facility] eval hx MRSA, Pseudomonas on recent outpx wound CS from R heel wound px currently on outpx Cipro and Doxycycline rx from [facility]. DVT PROPHYLAXIS scds DISPOSITION close monitor in pcu pt/ot social service for d/c planning possible d/c in 1-2 days Vital Signs: Date Time Temp Pulse Resp B/P (MAP) Pulse Ox O2 Delivery O2 Flow Rate FiO2 07/21/16 16:00 Room Air 07/21/16 15:58 36.9 82 18 146/79 (101) 95 Room Air 07/21/16 12:19 36.9 68 18 131/69 (89) 93 07/21/16 12:00 Room Air 07/21/16 08:00 Room Air 07/21/16 08:00 36.8 67 18 123/67 (85) 96 07/21/16 04:04 Room Air 07/21/16 04:01 36.5 73 22 137/70 (92) 98 Room Air 07/21/16 00:00 Room Air 07/20/16 23:08 37.2 67 21 128/68 (88) 96 Room Air 07/20/16 20:00 Room Air 07/20/16 19:00 37.0 76 21 115/67 (83) 96 Room Air Lab Results: Results Past 24 Hours Test 07/20/16 20:23 07/20/16 23:16 07/21/16 05:22 07/21/16 07:01 Range/Units Bedside Glucose 396 316 222 70-99 mg/dl White Blood Count 6.95 4.8-10.8 K/uL Red Blood Count 3.27 4.7-6.1 M/uL Hemoglobin 9.2 14.0-18.0 g/dL Hematocrit 28.3 42-52 % Mean Corpuscular Volume 86.5 80-100 fL Mean Corpuscular Hemoglobin 28.1 25-34 pg Mean Corpuscular Hemoglobin Concent 32.5 32-36 g/dl Platelet Count 251 130-400 K/uL Mean Platelet Volume 8.8 7.4-10.4 fL Neutrophils (%) (Auto) 74.7 % Lymphocytes (%) (Auto) 13.8 % Monocytes (%) (Auto) 9.8 % Eosinophils (%) (Auto) 1.3 % Basophils (%) (Auto) 0.1 % Neutrophils # (Auto) 5.19 1.4-6.5 K/uL Lymphocytes # (Auto) 0.96 1.2-3.4 K/uL Monocytes # (Auto) 0.68 0.11-0.59 K/uL Eosinophils # (Auto) 0.09 0-0.5 K/uL Basophils # (Auto) 0.01 0-0.2 K/uL RDW Standard Deviation 55.8 36.4-46.3 fL RDW Coefficient of Variation 17.7 11.5-14.5 % Immature Granulocyte % (Auto) 0.3 % Immature Granulocyte # (Auto) 0.02 0.00-0.02 K/uL Prothrombin Time 15.2 9.0-12.0 SECONDS Prothromb Time International Ratio 1.4 0.9-1.1 Sodium Level 141 136-145 mmol/L Potassium Level 3.5 3.5-5.1 mmol/L Chloride Level 107 98-107 mmol/L Carbon Dioxide Level 24 21-32 mmol/L Anion Gap 10.0 3-11 mmol/L Blood Urea Nitrogen 55 7-18 mg/dl Creatinine 1.60 0.60-1.40 mg/dl Est Creatinine Clear Calc Drug Dose 53.3 ml/min Estimated GFR () 46.5 Estimated GFR (Non- 40.1 BUN/Creatinine Ratio 34.2 10-20 Random Glucose 229 70-99 mg/dl Calcium Level 8.2 8.5-10.1 mg/dl Magnesium Level 2.4 1.8-2.4 mg/dl Test 07/21/16 11:15 07/21/16 16:27 Range/Units Bedside Glucose 227 268 70-99 mg/dl
[2016-07-21 19:41] VITALS: BP 132/74; PULSE 89; TEMP 36.8; O2SAT 94
[2016-07-21] MEDS: ROSUVASTATIN CALCIUM 10 MG TAB PO SCH (19:56)
[2016-07-21 23:43] VITALS: BP 131/78; PULSE 79; TEMP 36.7; O2SAT 95
[2016-07-22 03:28] VITALS: BP 144/73; PULSE 64; TEMP 37.1; O2SAT 95
[2016-07-22 06:28] LABS: INR 1.4 (0.9-1.1)
[2016-07-22 06:39] LABS: BUN/CREATININE RATIO 35.1 (10-20); CREATININE 1.4 mg/dl (0.60-1.40); POTASSIUM 3.3 mmol/L (3.5-5.1)
[2016-07-22 06:46] LABS: CALCIUM 8.6 mg/dl (8.5-10.1)
[2016-07-22 06:50] LABS: MAGNESIUM 2.3 mg/dl (1.8-2.4)
[2016-07-22] MEDS: BOOST VANILLA PUDDING CUP PO SCH ×2 (07:30→11:30)
[2016-07-22] MEDS: CIPROFLOXACIN 250 MG TAB PO SCH (07:30)
[2016-07-22] MEDS ORDERED: POTASSIUM CHLORIDE 20 MEQ TABCR PO ONE (07:30)
[2016-07-22] MEDS: PROSOURCE NOCARB 30ML/PKT PO SCH (07:30)
[2016-07-22] MEDS: CEROVITE ADV FORMULA TAB PO SCH (07:31)
[2016-07-22] MEDS: PANTOprazole SOD 40 MG TAB PO SCH (07:31)
[2016-07-22] MEDS: DOCUSATE SODIUM/SENNA 50/8.6MG TAB PO SCH (07:31)
[2016-07-22] MEDS: METOPROLOL TARTRATE 25 MG TAB PO SCH (07:31)
[2016-07-22] MEDS: LACTOBACILLUS ACIDOPHILUS (FLORANEX) TAB PO SCH ×2 (07:32→12:00)
[2016-07-22] MEDS: ASPIRIN 81 MG ECTAB PO SCH (07:32)
[2016-07-22] MEDS: DOXYCYCLINE HYCLATE 100 MG CAP PO SCH (07:32)
[2016-07-22 07:42] VITALS: BP 150/83; PULSE 73; TEMP 36.3; O2SAT 99
[2016-07-22] MEDS: INSULIN GLARGINE SOLOSTAR 100 UNITS/ML 3 ML PEN SC SCH (07:43)
[2016-07-22] MEDS: INSULIN ASPART 100 UNITS/ML 3 ML PEN SC SCH ×2 (07:43→12:02)
[2016-07-22 08:46] LABS: HEMATOCRIT 29.3 % (42-52)
[2016-07-22] MEDS ORDERED: FUROSEMIDE 80 MG TAB PO SCH (09:00)
--- NOTE | 2016-07-22 09:00 | Cardiology Follow-Up ---
Subjective General Date of Service: Jul 22, 2016. Pt evaluation today including: conversation w/ patient, physical exam, chart review, lab review, review of studies, conversation w/ advertising consultant, review of inpatient medication list History of Present Illness The patient is a 80 year old male seen in follow-up. Feeling much better today. AM labs pending. No signs/symptoms of GI blood loss. Denies chest pain, palpitations, or shortness of breath at rest. HR controlled with metoprolol. Patient requesting discharge if possible. Allergies Coded Allergies: NO KNOWN DRUG ALLERGIES (Verified Allergy, Unknown, ., 07/17/16) Social History Smoking Status: Never Smoker Hx Tobacco Use In Past Year?: No Hx Alcohol Use - Type And Amou: No Hx Substance Use - Type And Am: No Problem List Medical Problems: (1) Acute electrocardiogram changes Status: Acute (2) Acute electrocardiogram changes Status: Acute (3) Acute kidney injury Status: Acute (4) Anemia Status: Acute (5) Atrial fibrillation with RVR Status: Acute (6) CHF (congestive heart failure) Status: Acute (7) Dysphagia Status: Acute (8) Edema Status: Acute (9) Hypoglycemia Status: Acute (10) Insulin dependent diabetes mellitus Status: Acute (11) Jaw pain Status: Acute (12) Right leg pain Status: Acute (13) Supratherapeutic INR Status: Acute Review of Systems Respiratory: + hemoptysis, No cough, No sputum, No wheezing, No shortness of breath, No dyspnea on exertion, No dyspnea at rest Cardiac: + edema, No chest pain, No orthopnea, No PND, No claudication, No palpitations Physical Exam Vital Signs Last Vital Signs Documentation Date Time Temp Pulse Resp B/P (MAP) Pulse Ox O2 Delivery O2 Flow Rate FiO2 07/22/16 07:42 36.3 73 18 150/83 (105) 99 Room Air 07/17/16 21:11 3.0 Physical Exam Constitutional: General Apperance: overweight Level of Distress: chronically ill Head: normocephalic, atraumatic Neck: supple Lungs: Auscultation: no wheezing, no rales/crackles, no rhonchi Cardiovascular: Heart Auscultation: normal S1, normal S2, I/ COLBY, irregular rate rhythm Abdomen: Bowel Sounds: normal Inspection & Palpation: soft, non-distended, no tenderness, guarding & rebound Extremities: no cyanosis, no clubbing, edema (1-2+ B/L pretibial edema, + stasis changes), ulcers Neurologic: Cranial Nerves: grossly intact Assessment and Plan Assessment and Plan 1. Complex 80-year-old male jail patient admitted with profound weakness. - multifactorial including anemia, rapid atrial fibrillation, NSTEMI 2. Hypotension on admission related to rapid atrial fibrillation, mild volume depletion. - resolved - initially diuretics held; now restarted started and transitioned to outpatient oral dosing 3. Multi-factorial Anemia related to chronic disease, iron deficiency, and supratherapeutic INR - no obvious signs of bleeding - Hemoglobin stable s/p 3u PRBC's - warfarin restarted yesterday - Patient declined repeat endoscopy 4. Chronic kidney disease stage III-IV -- creatinine stable/improved 5. Ischemic cardiomyopathy with history of remote coronary artery bypass grafting in 1994 and chronic systolic heart failure. - Patient appears fairly compensated - Repeat echo performed during this admission demonstrates further decline in systolic function. 6. Bilateral heel decubitus ulcers on outpatient Cipro and doxycycline from the wound clinic. PLAN AND RECOMMENDATIONS: Continue warfarin. (Previous dose 5mg MF, 10mg all other days) Follow H&H. Daily INR. Continue PO lasix. Follow daily weight, renal function, and urine output. I had a long conversation with patient regarding complex medical issues and further treatment options. Recommend conservative medical management at this time. Patient understands he is high risk for invasive procedures. Patient may be transferred to [facility] today from a cardiovascular perspective. Laboratory Results Last 24 Hours Test 07/21/16 11:15 07/21/16 16:27 07/21/16 20:41 07/22/16 06:00 Bedside Glucose 227 mg/dl 268 mg/dl 318 mg/dl Hemoglobin 9.6 g/dL Hematocrit 29.3 % Prothrombin Time 15.0 SECONDS Prothromb Time International Ratio 1.4 Sodium Level 143 mmol/L Potassium Level 3.3 mmol/L Chloride Level 109 mmol/L Carbon Dioxide Level 24 mmol/L Anion Gap 10.0 mmol/L Blood Urea Nitrogen 49 mg/dl Creatinine 1.40 mg/dl Est Creatinine Clear Calc Drug Dose 60.5 ml/min Estimated GFR () 54.6 Estimated GFR (Non- 47.1 BUN/Creatinine Ratio 35.1 Random Glucose 165 mg/dl Calcium Level 8.6 mg/dl Magnesium Level 2.3 mg/dl Test 07/22/16 06:25 Bedside Glucose 180 mg/dl
[2016-07-22] MEDS ORDERED: LCTX PO (09:48)
[2016-07-22] MEDS ORDERED: PRED-301 PO (09:48)
[2016-07-22] MEDS ORDERED: VNTHFA/IN INH (09:48)
[2016-07-22] MEDS ORDERED: LSN20 PO (09:48)
[2016-07-22] MEDS ORDERED: CMD5 PO (09:48)
[2016-07-22] MEDS ORDERED: LPR25 PO (09:48)
[2016-07-22] MEDS ORDERED: NUTRMIS PO (09:48)
[2016-07-22] MEDS ORDERED: HYDR-5688 PO (09:48)
[2016-07-22] MEDS ORDERED: TRAM-10 PO (09:48)
[2016-07-22] MEDS ORDERED: NUTR-1049 PO (09:48)
[2016-07-22] MEDS ORDERED: ASPEC81 PO (09:55)
--- NOTE | 2016-07-22 09:56 | Discharge Instructions ---
Discharge Instructions Date of Service Jul 22, 2016. Admission Reason for Admission: Rapid Atrial Fibrillation Discharge Discharge Diagnosis / Problem: rapid afib,anemia, nstemi, gout Discharge Goals Goal(s): Decrease discomfort, Improve function Activity Recommendations Activity Level: Assistance Required Therapies: Physical Therapy, Occupational Therapy . Additional Information Patient informed of condition: Yes Advance Directives: Yes DNR: No Level of Care: Skilled Communicable Disease: No Prognosis: Stable Reyes Catheter: No Instructions / Follow-Up Instructions / Follow-Up FOLLOWUP WITH FAMILY DOCTOR IN ONE WEEK FOLLOWUP WITH RHEUMATOLOGY IN 10-14 DAYS FOLLOWUP WITH CARDIOLOGY IN 1-2 WEEKS. FOLLOWUP WITH COUMADIN CLINIC CLOSELY FOR COUMADIN DOSING. CHECK PT/INR DAILY AND ADJUST COUMADIN DOSE. CLOSE MONITOR BLOOD SUGARS PATIENT IS NOW ON STEROIDS AND ADJUST INSULIN REGIMEN. CLOSE MONITOR OF BLOOD PRESSURE BLOOD PRESSURE MEDICATIONS HAVE BEEN ADJUSTED. LAB: CBC AND BMP WITH MG LEVELS IN ONE WEEK AND FOLLOW RESULTS WITH FAMILY DOCTOR. Call your Primary Care doctor if any of the following symptoms or problems start or get worse: * Shortness of breath or difficulty breathing * Wake up at night short of breath * Chest pain * Cough * Swelling of your hands, feet, or legs * More fatigued or tired with your normal activity * Palpitations - sudden fast heart beats WEIGHT * Weigh yourself every morning after using the bathroom. * Use the same scale. * Wear the same amount of clothing. * Write your weight down on a chart. * Call your Primary Care doctor if you gain more than 2-3 pounds in 1-2 days. MEDICATIONS * Use this discharge instruction sheet for medication instructions. * Take your medications at the time your doctor ordered. * Do not skip a dose of your medicines. * If you miss a dose of medicine, take it as soon as possible, but DO NOT DOUBLE A DOSE. * Read your medicine information when you get home. * Know all of the side effects of your medicine. If in doubt, ask your pharmacist * Call your Primary Care doctor's office if you have any side effects. * Be sure all of your doctors know what medicine and herbs you take (including cold, flu, and herbal medicine). Take the following with you to your follow-up doctor appointments: * Weight Chart * Medication List * List of questions Do not drink excessive alcohol, beer or wine. Current Hospital Diet Patient's current hospital diet: Diabetes Type 2 Diet, AHA Diet (Heart Healthy) Discharge Diet Recommended Diet: AHA Diet (Heart Healthy), Diabetes Type 2 Diet Pending Studies Studies pending at discharge: no Physician Orders On Transfer Special Precautions: FALL AND ASPIRATION PRECAUTIONS Vital Signs: EVERY 8HRS Laboratory Results Hemoglobin A1c Test 07/04/16 06:48 Range/Units Estimated Average Glucose 209 mg/dl Hemoglobin A1c 8.9 H 4.5-5.6 % Medical Emergencies . Who to Call and When: Medical Emergencies: If at any time you feel your situation is an emergency, please call 911 immediately. . Non-Emergent Contact Non-Emergency issues call your: Primary Care Provider . . "Provider Documentation" section prepared by Keith Louise. . Core Measure Problem Core Measures: None
[2016-07-22 11:35] VITALS: BP 144/74; PULSE 81; TEMP 37; O2SAT 93
[2016-07-22 14:08] VITALS: BP 144/74; PULSE 81; TEMP 37; O2SAT 93
--- NOTE | 2016-07-22 18:11 | Progress Note ---
Internal Med Progress Note Date of Service: Jul 22, 2016. Provider Documentation: SUBJECTIVE: resting comfortably afebrile ambulated in room fine eating fine no pain ok to discharge OBJECTIVE: Vital Signs-as noted below Exam: General-alert and awake. Not in distress ENT-Normal hearing Neck-no neck masses, supple Lungs-cta b/l no wheezing or crackles Heart-s1 and s2 heard irregular , no murmurs Abdomen-soft bowel sounds present non tender no distension Extremities- chronic lower extremity edema present Neuro-alert and awake moves extremities Lab data as noted below. ASSESSMENT & PLAN: 1. Rapid Afib INR supratherapeutic on presentation inr 1.4 today received digoxin and rates under control now coreg changed to Lopressor by cardiology close monitor rates under control now cardiology on board. restarted coumadin close inr followup discharged to [facility] Nstemi troponin elevated to 8.4 and trending down asymptomatic mostly demand ischemia from rapid a fib and anemia seen by cardiology and appreciate inputs added aspirin stable will monitor. Anemia hb 7.5 no signs of active bleeding Gi consulted couldn't transfused n as developed fever and tachycardia hb 7.6 transfused two units07/19/16 patient refusing egd or colonoscopy hb 9.6 today stable f/u labs with pcp. LE pain poss R knee gout (px co of pain on the R knee and both ankles for weeks now; hx gouty crystals on R knee aspirate sp intra=articular steroid injection last month) currently pains are better consulted rheumatology and recommended prednisone and taper and to follow as out patient stable agitation/disorientation. (? home meds, ?new Cipro rx) stable now f/u labs in am [facility] on CRI 2 to illness, ? mild clinical dehydration f/u labs cr 1.4 today f/u labs with pcp Chronic systolic heart failure secondary to ischemia cardiomyopathy, EF 40-45% equivocal volume status mild congestion on CXR stable weight however received a dose of iv lasix with prbc ON daily iv lasix 20mg echo shows Ef 30-35% started on po Lasix f/u with pcp and cardiology Coronary artery disease, status post coronary artery bypass graft.On aspirin, Lopressor and statin. Hypertension. Blood pressure on the lower side. DM2, insulin requiring, suboptimal control as of recent HgA1c 8.9 in 06/2016. BG currently on the lower side. On ISS. Will monitor. Right heel, sacral decubitis wounds,as per h and P: improving as per recent outpx [facility] eval hx MRSA, Pseudomonas on recent outpx wound CS from R heel wound px currently on outpx Cipro and Doxycycline rx from [facility].F/u with wound clinic Discharged to [facility] Vital Signs: Date Time Temp Pulse Resp B/P (MAP) Pulse Ox O2 Delivery O2 Flow Rate FiO2 07/22/16 14:08 37.0 81 18 93 Room Air 07/22/16 12:00 Room Air 07/22/16 11:35 37.0 81 18 144/74 (97) 93 Room Air 07/22/16 08:00 Room Air 07/22/16 07:42 36.3 73 18 150/83 (105) 99 Room Air 07/22/16 04:00 Room Air 07/22/16 03:28 37.1 64 18 144/73 (96) 95 Room Air 07/22/16 00:00 Room Air 07/21/16 23:43 36.7 79 20 131/78 (95) 95 Room Air 07/21/16 20:00 Room Air 07/21/16 19:41 36.8 89 18 132/74 (93) 94 Room Air Lab Results: Results Past 24 Hours Test 07/21/16 20:41 07/22/16 06:00 07/22/16 06:25 07/22/16 10:58 Range/Units Bedside Glucose 318 180 242 70-99 mg/dl Hemoglobin 9.6 14.0-18.0 g/dL Hematocrit 29.3 42-52 % Prothrombin Time 15.0 9.0-12.0 SECONDS Prothromb Time International Ratio 1.4 0.9-1.1 Sodium Level 143 136-145 mmol/L Potassium Level 3.3 3.5-5.1 mmol/L Chloride Level 109 98-107 mmol/L Carbon Dioxide Level 24 21-32 mmol/L Anion Gap 10.0 3-11 mmol/L Blood Urea Nitrogen 49 7-18 mg/dl Creatinine 1.40 0.60-1.40 mg/dl Est Creatinine Clear Calc Drug Dose 60.5 ml/min Estimated GFR () 54.6 Estimated GFR (Non- 47.1 BUN/Creatinine Ratio 35.1 10-20 Random Glucose 165 70-99 mg/dl Calcium Level 8.6 8.5-10.1 mg/dl Magnesium Level 2.3 1.8-2.4 mg/dl
--- NOTE | 2016-08-04 15:49 | Discharge Summary ---
Discharge Summary Date of Service Aug 04, 2016. Discharge Summary Admission Date: Jul 17, 2016 at 20:44 Discharge Date: Jul 22, 2016 Discharge Disposition: [facility] facility Principal Diagnosis: RAPID A FIB NSTEMI ANEMIA Secondary Diagnoses/Problems: episodic disorientation, agitation during encounter. Medical history significant for chronic systolic heart failure secondary to ischemic cardiomyopathy (EF 40%), CAD sp CABG, hypertension, hyperlipidemia, AFib on Coumadin (px insists he's not despite existing documentation), DM2, insulin requiring, history of chronic kidney disease (baseline creatinine 1.3 to 1.5, chronic anemia (baseline hemoglobin 8 to 9), sleep apnea, gout as per records. decubiti wounds, hx MRSA Procedures: LOWER EXT DOPPLER: No DVT within the right lower extremity RIGHT HIP AND KNEE XRAY: 1. No acute fracture or dislocation within the right hip, right knee, right ankle. 2. Degenerative changes as described above. 3. Moderate right knee effusion. 4. Soft tissue swelling within the right ankle. HEAD CT: Mild motion artifact. No definite acute intracranial abnormality. CT ABD/PELVIS: 1. A 5 mm nonobstructing stone within the left ureter. 2. Bilateral nephrolithiasis. No hydronephrosis. 3. 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 4. Additional findings as described above. CT RIGHT LOWER LE. Degenerative changes within the knee and ankle 2. Small joint effusion involving the knee 3. No acute fractures. No destructive lesions are visualized 4. Diffuse edema. 5. Vascular calcifications LEFT ANKLE XRAY: 1. No acute fractures 2. Soft tissue edema. ECHO: * Left ventricular systolic function is moderate to severely reduced. * Ejection Fraction = 30-35%. * There are regional wall motion abnormalities as specified. * The right ventricle is mildly dilated. * The right ventricular systolic function is reduced as assessed by tricuspid annular plane systolic excursion (TAPSE) (TAPSE <1.6 cm). * There is moderate mitral regurgitation. * There is mild to moderate tricuspid regurgitation. * Dilated inferior vena cava with reduced collapsability with sniff indicates an elevated right atrial pressure of 15 mmHg Consultations: CARDIOLOGY GI RHEUMATOLOGY Medication Reconciliation New Medications: Albuterol Hfa (Ventolin Hfa) 200 Puffs/10109 Mcg Aers 2 PUFFS INH Q6H, #1 INHALER 2 Refills Lactobacillus Acidophilus (Lactinex) Tab 2 TAB PO BID for 30 Days, TAB Lisinopril (Lisinopril) 20 Mg Tab 20 MG PO DAILY, #30 2 Refills Prednisone (Prednisone) 5 Mg Tab 15 MG PO UD, #30 TAB 1 Refill PREDNISONE 15MG PO DAILY X 3 DAYS THEN PREDNISONE 10MG PO DAILY X 3 DAYS THEN PREDNISONE 5MG PO DAILY UNTIL FURTHER RECOMMENDATIONS FROM RHEUMATOLOGY Aspirin (Aspirin EC Low Dose) 81 Mg Ectab 81 MG PO QAM, #30 2 Refills Metoprolol Tartrate (Lopressor) 25 Mg Tab 25 MG PO BID, #30 TAB 2 Refills Nutritional Supplements (Prosource No Carb) 1 Liq Liq 30 ML PO BID for 30 Days, 2 Refills Nutritional Supplements (Boost Pudding) 1 Mis Mis 1 CUP PO TIDM for 30 Days, 2 Refills Warfarin Sod (Coumadin) 5 Mg Tab 5 MG PO DAILY@16, #30 TAB 1 Refill Continued Medications: Acetaminophen Tab (Tylenol) 325 Mg Tab 650 MG PO Q6H PRN for Pain or Fever, TAB Ascorbic Acid (Vitamin C) 500 Mg Tab 500 MG PO BID Ciprofloxacin Tab (Cipro) 250 Mg Tab 250 MG PO BID, TAB STARTED 07/15/16 FOR 14 DAYS. Doxycycline Monohydrate (Monodox) 100 Mg Cap 100 MG PO BID, CAP STARTED 07/15/16 FOR 14 DAYS Ergocalciferol (Vitamin D2) Unknown Strength Tab 84411 UNITS PO MONTHLY Furosemide (Lasix) 40 Mg Tab 40 MG PO QPM AT 1630, TAB Furosemide (Lasix) 40 Mg Tab 80 MG PO QAM AT 0830, TAB Hydrocodone/Acetaminophen 5MG/325MG ([place] 5MG/325MG) Tab 1 TABLET PO TID PRN for Pain, #10 TAB (This prescription has been renewed) Insulin Aspart 70/30 (Novolog Mix 70/30) Susp 55 SC QAM, BTL Insulin Aspart 70/30 (Novolog Mix 70/30) Susp 45 SC QPM, BTL Mirtazapine (Remeron) 15 Mg Tab 15 MG PO HS, #30 Multivitamins/Minerals (Mvi With Minerals) Tab 1 TAB PO QAM, TAB Nitroglycerin (Nitrostat) 0.4 Mg Tab 0.4 MG UT PRN PRN for Chest Pain Omeprazole (Prilosec) 20 Mg Capcr 20 MG PO BID, CAP Potassium Ext Rel (Klor-Con) 20 Meq Tabcr 40 MEQ PO QAM, TAB Rosuvastatin Calcium (Crestor) 10 Mg Tab 10 MG PO QPM, TAB Senna/Docusate Sod (Senokot S) 1 Tab Tab 1 TAB PO QAM, TAB Tramadol (Ultram) 50 Mg Tab 50 MG PO Q6H PRN for Pain, #14 TAB (This prescription has been renewed) [Protein Liquid] () 30 ML PO BID Discontinued Medications: Carvedilol (Coreg) 12.5 Mg Tab 37.5 MG PO QAM, TAB Carvedilol (Coreg) 12.5 Mg Tab 25 MG PO QPM, TAB Lisinopril (Zestril) 40 Mg Tab 40 MG PO QAM, TAB Trazodone Hcl (Trazodone) 50 Mg Tab 50 MG PO HS, TAB Warfarin Sod (Coumadin) 10 Mg Tab 10 MG PO QPM for 30 Days, TAB 5 Refills Admission Information HPI (per Admitting provider): History obtained from the patient and records. Px has fair reliability given episodic disorientation, agitation during encounter. Medical history significant for chronic systolic heart failure secondary to ischemic cardiomyopathy (EF 40%), CAD sp CABG, hypertension, hyperlipidemia, AFib on Coumadin (px insists he's not despite existing documentation), DM2, insulin requiring, history of chronic kidney disease (baseline creatinine 1.3 to 1.5, chronic anemia (baseline hemoglobin 8 to 9), sleep apnea, gout as per records. decubiti wounds, hx MRSA Recent confinement 2 weeks ago for ARF on CRI secondary to diarrhea. Kidney function improved w/ IVF. Patient discharged back to [facility] for rehab, As per records, today the patient felt weak, unable to be supported by 2 people, complaining of bilateral ankle pain, bilateral right knee pain, thinks it might be a gout attack. Patient also complaining of back pain too. No fever, no chills. No chest pain. Denies actual shortness of breath. No cough sx. Patient feels legs more swollen than usual. Weight stable however. In the Emergency Room, the patient noted to be in rapid AFib, heart rate 120s. SBP 90s. Patient was given IV fluids and Lopressor. MEDICAL HISTORY: As above. Recent outpatient [facility] Cardiology followup visit a gew days ago (July 14.) As per visit, weight had been stable at that time. Last wound care center visit last week (Dr. Ignacio) stage II pressure ulcer on the right heel improving, stage II pressure ulcer on the buttock stable. Debridement done for R heel ulcer. CS MRSA, Pseudomonas px currently on Doxycycline and Cipro rx. Physical Exam (per Admitting): VITAL SIGNS: Blood pressure noted to be initially 99/68, pulse rate 110, RR 18, temperature 36.6, sats 93 on room air. GENERAL: Noted to be coherent, episodic agitation, disorientation, obese. no resp distress, uncomfortable SKIN: Pallor. HEENT: Pale palpebral conjunctivae. Dry mucosa. NECK: Short neck. LUNGS: Decreased breath sounds. HEART: irregular. tachycardic ABDOMEN: Some distention, nontender. EXTREMITIES: Bilateral lower extremity edema with erythema on the right. some tenderness note of excoriations on legs NEUROLOGIC: Some disorientation. Gait and stance not assessed. Hospital Course 1. Rapid Afib INR supratherapeutic on presentation inr 1.4 today received digoxin and rates under control now coreg changed to Lopressor by cardiology close monitor rates under control now cardiology on board. restarted coumadin close inr followup discharged to [facility] Nstemi troponin elevated to 8.4 and trending down asymptomatic mostly demand ischemia from rapid a fib and anemia seen by cardiology and appreciate inputs added aspirin stable will monitor. Anemia hb 7.5 no signs of active bleeding Gi consulted couldn't transfused n as developed fever and tachycardia hb 7.6 transfused two units07/19/16 patient refusing egd or colonoscopy hb 9.6 today stable f/u labs with pcp. LE pain poss R knee gout (px co of pain on the R knee and both ankles for weeks now; hx gouty crystals on R knee aspirate sp intra=articular steroid injection last month) currently pains are better consulted rheumatology and recommended prednisone and taper and to follow as out patient stable agitation/disorientation. (? home meds, ?new Cipro rx) stable now f/u labs in am ARF on CRI 2 to illness, ? mild clinical dehydration f/u labs cr 1.4 today f/u labs with pcp Chronic systolic heart failure secondary to ischemia cardiomyopathy, EF 40-45% equivocal volume status mild congestion on CXR stable weight however received a dose of iv lasix with prbc ON daily iv lasix 20mg echo shows Ef 30-35% started on po Lasix f/u with pcp and cardiology Coronary artery disease, status post coronary artery bypass graft.On aspirin, Lopressor and statin. Hypertension. Blood pressure on the lower side. DM2, insulin requiring, suboptimal control as of recent HgA1c 8.9 in 06/2016. BG currently on the lower side. On ISS. Will monitor. Right heel, sacral decubitis wounds,as per h and P: improving as per recent outpx [facility] eval hx MRSA, Pseudomonas on recent outpx wound CS from R heel wound px currently on outpx Cipro and Doxycycline rx from [facility].F/u with wound clinic Discharged to [facility] Total time spent on discharge = 40MINUTES This includes examination of the patient, discharge planning, medication reconciliation, and communication with other providers. Discharge Instructions Discharge Instructions Date of Service Jul 22, 2016. Admission Reason for Admission: Rapid Atrial Fibrillation Discharge Discharge Diagnosis / Problem: rapid afib,anemia, nstemi, gout Discharge Goals Goal(s): Decrease discomfort, Improve function Activity Recommendations Activity Level: Assistance Required Therapies: Physical Therapy, Occupational Therapy . Additional Information Patient informed of condition: Yes Advance Directives: Yes DNR: No Level of Care: Skilled Communicable Disease: No Prognosis: Stable Reyes Catheter: No Instructions / Follow-Up Instructions / Follow-Up FOLLOWUP WITH FAMILY DOCTOR IN ONE WEEK FOLLOWUP WITH RHEUMATOLOGY IN 10-14 DAYS FOLLOWUP WITH CARDIOLOGY IN 1-2 WEEKS. FOLLOWUP WITH COUMADIN CLINIC CLOSELY FOR COUMADIN DOSING. CHECK PT/INR DAILY AND ADJUST COUMADIN DOSE. CLOSE MONITOR BLOOD SUGARS PATIENT IS NOW ON STEROIDS AND ADJUST INSULIN REGIMEN. CLOSE MONITOR OF BLOOD PRESSURE BLOOD PRESSURE MEDICATIONS HAVE BEEN ADJUSTED. LAB: CBC AND BMP WITH MG LEVELS IN ONE WEEK AND FOLLOW RESULTS WITH FAMILY DOCTOR. Call your Primary Care doctor if any of the following symptoms or problems start or get worse: * Shortness of breath or difficulty breathing * Wake up at night short of breath * Chest pain * Cough * Swelling of your hands, feet, or legs * More fatigued or tired with your normal activity * Palpitations - sudden fast heart beats WEIGHT * Weigh yourself every morning after using the bathroom. * Use the same scale. * Wear the same amount of clothing. * Write your weight down on a chart. * Call your Primary Care doctor if you gain more than 2-3 pounds in 1-2 days. MEDICATIONS * Use this discharge instruction sheet for medication instructions. * Take your medications at the time your doctor ordered. * Do not skip a dose of your medicines. * If you miss a dose of medicine, take it as soon as possible, but DO NOT DOUBLE A DOSE. * Read your medicine information when you get home. * Know all of the side effects of your medicine. If in doubt, ask your pharmacist * Call your Primary Care doctor's office if you have any side effects. * Be sure all of your doctors know what medicine and herbs you take (including cold, flu, and herbal medicine). Take the following with you to your follow-up doctor appointments: * Weight Chart * Medication List * List of questions Do not drink excessive alcohol, beer or wine. Current Hospital Diet Patient's current hospital diet: Diabetes Type 2 Diet, AHA Diet (Heart Healthy) Discharge Diet Recommended Diet: AHA Diet (Heart Healthy), Diabetes Type 2 Diet Pending Studies Studies pending at discharge: no Physician Orders On Transfer Special Precautions: FALL AND ASPIRATION PRECAUTIONS Vital Signs: EVERY 8HRS Laboratory Results Hemoglobin A1c Test 07/04/16 06:48 Range/Units Estimated Average Glucose 209 mg/dl Hemoglobin A1c 8.9 H 4.5-5.6 % Medical Emergencies . Who to Call and When: Medical Emergencies: If at any time you feel your situation is an emergency, please call 911 immediately. . Non-Emergent Contact Non-Emergency issues call your: Primary Care Provider . . "Provider Documentation" section prepared by Keith Louise. . Core Measure Problem Core Measures: None
[2016-08-22] MEDS ORDERED: SULF800T23 PO (08:30)
[2016-09-27] MEDS ORDERED: NVLGI7030 SC (08:17)
[2016-09-27] MEDS ORDERED: NTRGSL/4 UT (11:38)
[2016-09-27] MEDS ORDERED: PRLSR20 PO (11:38)
[2016-09-27] MEDS ORDERED: FRS/40 PO (11:38)
[2016-11-03] MEDS ORDERED: CLIN300C10 (14:29)
[2016-11-03] MEDS ORDERED: CLIN150C15 PO (14:29)
[2016-12-14] MEDS ORDERED: NRN100 PO ×2 (19:12→20:04)
[2016-12-25] MEDS ORDERED: IMDSR60 PO (08:35)
[2016-12-25] MEDS ORDERED: TPRSR50 PO (08:35)
[2017-01-04] MEDS ORDERED: CEFD300C2 PO (10:40)
[2017-01-04] MEDS ORDERED: SULF800T23 PO (10:40)
== END 2016-07-22 14:39 | DRG 281 ==
LOC: EDBD 15:52 → C.EDA 15:54 → C.2T 20:44 → ENRESERV 20:56
PROVIDERS: ADMIT Hospitalist; ATTEND Internal Medicine
DX: I48.91 Unspecified atrial fibrillation (principal); I21.4 Non-ST elevation (NSTEMI) myocardial infarction; N17.9 Acute kidney failure, unspecified; I13.0 Hypertensive heart and chronic kidney disease with heart failure and stage 1 through stage 4 chronic kidney disease, or unspecified chronic kidney disease; N18.4 Chronic kidney disease, stage 4 (severe); I50.22 Chronic systolic (congestive) heart failure; D63.1 Anemia in chronic kidney disease; D50.9 Iron deficiency anemia, unspecified; M10.9 Gout, unspecified; R79.1 Abnormal coagulation profile; R50.9 Fever, unspecified; Z53.29 Procedure and treatment not carried out because of patient's decision for other reasons; T36.8X5A Adverse effect of other systemic antibiotics, initial encounter; T50.995A Adverse effect of other drugs, medicaments and biological substances, initial encounter; I25.5 Ischemic cardiomyopathy; E11.22 Type 2 diabetes mellitus with diabetic chronic kidney disease; E11.21 Type 2 diabetes mellitus with diabetic nephropathy; E11.43 Type 2 diabetes mellitus with diabetic autonomic (poly)neuropathy; L89.629 Pressure ulcer of left heel, unspecified stage; L89.619 Pressure ulcer of right heel, unspecified stage; L89.159 Pressure ulcer of sacral region, unspecified stage; B96.5 Pseudomonas (aeruginosa) (mallei) (pseudomallei) as the cause of diseases classified elsewhere; I95.9 Hypotension, unspecified; E11.69 Type 2 diabetes mellitus with other specified complication; I25.119 Atherosclerotic heart disease of native coronary artery with unspecified angina pectoris; E78.5 Hyperlipidemia, unspecified; G47.33 Obstructive sleep apnea (adult) (pediatric); M19.90 Unspecified osteoarthritis, unspecified site; Z96.652 Presence of left artificial knee joint; K44.9 Diaphragmatic hernia without obstruction or gangrene; R26.89 Other abnormalities of gait and mobility; K21.9 Gastro-esophageal reflux disease without esophagitis; E86.0 Dehydration; Z87.19 Personal history of other diseases of the digestive system; Z86.14 Personal history of Methicillin resistant Staphylococcus aureus infection; Z99.81 Dependence on supplemental oxygen; Z86.711 Personal history of pulmonary embolism; Z99.89 Dependence on other enabling machines and devices; Z86.718 Personal history of other venous thrombosis and embolism; Z95.1 Presence of aortocoronary bypass graft; Z86.010 Personal history of colon polyps; Z79.899 Other long term (current) drug therapy; Z79.4 Long term (current) use of insulin; Z79.891 Long term (current) use of opiate analgesic; Z79.01 Long term (current) use of anticoagulants

== ENCOUNTER → 2016-07-26 | Outpatient (CLI) | payer OTHER ==
[~2016-07-26] MED LIST changes: +ACET325T96 PO; +ALLO300T2 PO; +AMLO-110 PO; +ASCA500 PO; -ASPCH81X PO; +ASPEC81 PO; -CARV12.52 PO; +CEFD300C2 PO; +CIPR1TAB11 PO; -CIPR250T3 PO; +CLIN150C15 PO; +CLIN300C10; +CMD10 PO; +CMD5 PO; +CRG125 PO; +CRS/10 PO; +CYCL10TA6 PO; +ERGO1TAB12 PO; +FRS/40 PO; +FURO40TA3 PO; -FURO80TA63 PO; +GABA-112 PO; +IMDSR60 PO; +LCTX PO; +LISI-725 PO; -LISI40TA PO; +LPR25 PO; +LSN20 PO; +LSX80 PO; -MCRK20 PO; -MCTP EXT; +MIRT15TA2 PO; -MULT-506 PO; +MULTTAB PO; +NRN100 PO; +NTRGSL/4 UT; +NUTR-1049 PO; +NUTRMIS PO; +POTA20TA16 PO; +PRED-301 PO; +PRLSR20 PO; +PROTEIN LIQUID PO; +SENN-65 PO; -SENN8.6T7 PO; +SULF800T23 PO; +TPRSR50 PO; +TRAM-10 PO; -TRAZ50TA35 PO; -ULT50X PO; +VNTHFA/IN INH; -VTMD PO; -WARF10TA PO
[2016-07-26 09:52] LABS: HEMATOCRIT 35.7 % (42-52); MEAN CELL VOLUME 87.7 fL (80-100); MEAN CORPUSCULAR HEMOGLOBIN 27.5 pg (25-34); MEAN CORPUSCULAR HGB CONC 31.4 g/dl (32-36); MEAN PLATELET VOLUME 9.1 fL (7.4-10.4); PLATELET COUNT 287 K/uL (130-400); RED BLOOD COUNT 4.07 M/uL (4.7-6.1); WHITE BLOOD COUNT 9.18 K/uL (4.8-10.8)
[2016-07-26 10:02] LABS: INR 1.6 (0.9-1.1); PROTHROMBIN TIME (PATIENT) 17.2 SECONDS (9.0-12.0)
[2016-07-26 10:25] LABS: BLOOD UREA NITROGEN 33 mg/dl (7-18); BUN/CREATININE RATIO 25.7 (10-20); CALCIUM 8.5 mg/dl (8.5-10.1); CARBON DIOXIDE 25 mmol/L (21-32); CHLORIDE 106 mmol/L (98-107); GLUCOSE 47 mg/dl (70-99); POTASSIUM 3.5 mmol/L (3.5-5.1); SODIUM 142 mmol/L (136-145)
== END | disposition home or self-care (01) ==
LOC: C.LABCC 07:44
PROVIDERS: ATTEND Internal Medicine
DX: I48.91 Unspecified atrial fibrillation (principal); D64.9 Anemia, unspecified

== ENCOUNTER → 2016-07-29 | Outpatient (CLI) | payer OTHER ==
[2016-07-29 12:58] LABS: BASO % 0.2 %; BASO ABS # 0.02 K/uL (0-0.2); COMPLETE YES; EOS % 1.5 %; HEMATOCRIT 36.9 % (42-52); IG% 0.3 %; LYMPH % 12.2 %; LYMPH ABS # 1.39 K/uL (1.2-3.4); MEAN CELL VOLUME 90.2 fL (80-100); MEAN CORPUSCULAR HEMOGLOBIN 27.4 pg (25-34); MEAN CORPUSCULAR HGB CONC 30.4 g/dl (32-36); MEAN PLATELET VOLUME 9.4 fL (7.4-10.4); MONO % 11.5 %; NEUT % 74.3 %; PLATELET COUNT 230 K/uL (130-400); RED BLOOD COUNT 4.09 M/uL (4.7-6.1)
[2016-07-29 13:30] LABS: BLOOD UREA NITROGEN 41 mg/dl (7-18); GLUCOSE 35 mg/dl (70-99)
[2016-07-29 13:31] LABS: BUN/CREATININE RATIO 29.6 (10-20); CARBON DIOXIDE 27 mmol/L (21-32); CHLORIDE 105 mmol/L (98-107); MAGNESIUM 2.4 mg/dl (1.8-2.4); POTASSIUM 4.2 mmol/L (3.5-5.1); SODIUM 141 mmol/L (136-145)
== END | disposition home or self-care (01) ==
LOC: C.LABCC 12:47
PROVIDERS: ATTEND Internal Medicine
DX: E11.9 Type 2 diabetes mellitus without complications (principal); D64.9 Anemia, unspecified

== ENCOUNTER → 2016-08-01 | Outpatient (CLI) | payer OTHER ==
[2016-08-01 13:16] LABS: INR 1.5 (0.9-1.1); PROTHROMBIN TIME (PATIENT) 16.1 SECONDS (9.0-12.0)
== END ==
LOC: C.LABCC 12:07
PROVIDERS: ATTEND Internal Medicine
DX: I48.91 Unspecified atrial fibrillation (principal)

== ENCOUNTER → 2016-08-03 | Outpatient (CLI) | payer OTHER ==
[2016-08-03 09:08] LABS: BASO % 0.4 %; BASO ABS # 0.03 K/uL (0-0.2); COMPLETE YES; EOS % 4.1 %; HEMATOCRIT 37.3 % (42-52); IG% 0.1 %; LYMPH % 17.7 %; LYMPH ABS # 1.38 K/uL (1.2-3.4); MEAN CELL VOLUME 89.9 fL (80-100); MEAN CORPUSCULAR HEMOGLOBIN 27.5 pg (25-34); MEAN CORPUSCULAR HGB CONC 30.6 g/dl (32-36); MEAN PLATELET VOLUME 9.3 fL (7.4-10.4); MONO % 9.7 %; PLATELET COUNT 228 K/uL (130-400); RED BLOOD COUNT 4.15 M/uL (4.7-6.1)
[2016-08-03 09:32] LABS: ALKALINE PHOSPHATASE 96 U/L (45-117); ALT/SGPT 41 U/L (12-78); AST/SGOT 28 U/L (15-37); BLOOD UREA NITROGEN 47 mg/dl (7-18); BUN/CREATININE RATIO 31.3 (10-20); CALCIUM 8.7 mg/dl (8.5-10.1); CARBON DIOXIDE 28 mmol/L (21-32); CHLORIDE 105 mmol/L (98-107); GLUCOSE 42 mg/dl (70-99); POTASSIUM 3.9 mmol/L (3.5-5.1); SODIUM 142 mmol/L (136-145); URIC ACID 9.8 mg/dl (2.6-7.2)
== END ==
LOC: C.LABCC 07:54
PROVIDERS: ATTEND Internal Medicine
DX: I50.9 Heart failure, unspecified (principal); M10.9 Gout, unspecified

== ENCOUNTER → 2016-08-08 | Outpatient (CLI) | payer OTHER ==
[2016-08-08 11:06] LABS: INR 1.5 (0.9-1.1); PROTHROMBIN TIME (PATIENT) 15.9 SECONDS (9.0-12.0)
== END | disposition home or self-care (01) ==
LOC: C.LABCC 08:39
PROVIDERS: ATTEND Internal Medicine
DX: I48.2 Chronic atrial fibrillation (principal)

== ENCOUNTER → 2016-08-10 | Outpatient (CLI) | payer OTHER ==
[~2016-08-10] MED LIST changes: -ALLO300T2 PO; -AMLO-110 PO; -CEFD300C2 PO; -GABA-112 PO; -IMDSR60 PO; -LISI-725 PO; -LSX80 PO; -MIRT15TA2 PO; -NRN100 PO; -TPRSR50 PO
[2016-08-10 10:49] LABS: BLOOD UREA NITROGEN 40 mg/dl (7-18); BUN/CREATININE RATIO 28.2 (10-20); CALCIUM 9.1 mg/dl (8.5-10.1); CARBON DIOXIDE 27 mmol/L (21-32); CHLORIDE 106 mmol/L (98-107); GLUCOSE 77 mg/dl (70-99); POTASSIUM 3.7 mmol/L (3.5-5.1); SODIUM 141 mmol/L (136-145)
== END ==
LOC: C.LABCC 08:29
PROVIDERS: ATTEND Internal Medicine
DX: R60.0 Localized edema (principal); N18.3 Chronic kidney disease, stage 3 (moderate)

== ENCOUNTER → 2016-08-15 | Outpatient (CLI) | payer OTHER ==
[~2016-08-15] MED LIST changes: -CIPR1TAB11 PO; -DOXY100C76 PO
[2016-08-15 13:21] LABS: INR 1.4 (0.9-1.1); PROTHROMBIN TIME (PATIENT) 15.5 SECONDS (9.0-12.0)
== END ==
LOC: C.LABCC 12:31
PROVIDERS: ATTEND Internal Medicine
DX: I48.91 Unspecified atrial fibrillation (principal)

== ENCOUNTER → 2016-08-22 | Outpatient (CLI) | payer OTHER ==
[2016-08-22 08:35] LABS: INR 1.3 (0.9-1.1); PROTHROMBIN TIME (PATIENT) 13.9 SECONDS (9.0-12.0)
== END ==
LOC: C.LABCC 08:04
PROVIDERS: ATTEND Internal Medicine
DX: I48.91 Unspecified atrial fibrillation (principal)

== ENCOUNTER → 2016-08-24 | Outpatient (CLI) | payer OTHER ==
[~2016-08-24] MED LIST changes: -LCTX PO
[2016-08-24 08:48] LABS: INR 1.3 (0.9-1.1); PROTHROMBIN TIME (PATIENT) 14.2 SECONDS (9.0-12.0)
== END ==
LOC: C.LABCC 08:12
PROVIDERS: ATTEND Internal Medicine
DX: I48.91 Unspecified atrial fibrillation (principal)

== ENCOUNTER → 2016-08-26 | Outpatient (CLI) | payer OTHER ==
[2016-08-26 08:45] LABS: INR 1.4 (0.9-1.1); PROTHROMBIN TIME (PATIENT) 14.7 SECONDS (9.0-12.0)
== END ==
LOC: C.LABCC 08:01
PROVIDERS: ATTEND Internal Medicine
DX: I48.91 Unspecified atrial fibrillation (principal)

== ENCOUNTER → 2016-08-31 | Outpatient (CLI) | payer OTHER ==
[2016-08-31 09:41] LABS: BASO % 0.5 %; BASO ABS # 0.04 K/uL (0-0.2); EOS % 4.6 %; HEMATOCRIT 33.2 % (42-52); IG% 0.2 %; LYMPH % 16.7 %; LYMPH ABS # 1.39 K/uL (1.2-3.4); MEAN CELL VOLUME 90.2 fL (80-100); MEAN PLATELET VOLUME 9.4 fL (7.4-10.4); MONO % 8.4 %; NEUT % 69.6 %; PLATELET COUNT 210 K/uL (130-400); RED BLOOD COUNT 3.68 M/uL (4.7-6.1)
[2016-08-31 09:47] LABS: INR 1.4 (0.9-1.1); PROTHROMBIN TIME (PATIENT) 15.4 SECONDS (9.0-12.0)
[2016-08-31 09:50] LABS: ALT/SGPT 20 U/L (12-78); AST/SGOT 12 U/L (15-37); URIC ACID 9.2 mg/dl (2.6-7.2)
[2016-08-31 09:53] LABS: ALKALINE PHOSPHATASE 86 U/L (45-117)
[2016-08-31 10:17] LABS: ANISOCYTOSIS PRESENT; COMPLETE YES
== END ==
LOC: C.LABCC 09:21
PROVIDERS: ATTEND Internal Medicine
DX: I48.91 Unspecified atrial fibrillation (principal); N18.3 Chronic kidney disease, stage 3 (moderate); M10.9 Gout, unspecified

== ENCOUNTER → 2016-09-05 | Outpatient (CLI) | payer OTHER ==
[2016-09-05 08:36] LABS: PROTHROMBIN TIME (PATIENT) 22.3 SECONDS (9.0-12.0)
[2016-09-05 08:41] LABS: BLOOD UREA NITROGEN 46 mg/dl (7-18); CALCIUM 8.7 mg/dl (8.5-10.1); CARBON DIOXIDE 26 mmol/L (21-32); CHLORIDE 105 mmol/L (98-107); GLUCOSE 47 mg/dl (70-99); POTASSIUM 4.2 mmol/L (3.5-5.1); SODIUM 139 mmol/L (136-145)
== END ==
LOC: C.LABCC 07:44
PROVIDERS: ATTEND Internal Medicine
DX: I48.91 Unspecified atrial fibrillation (principal); N18.3 Chronic kidney disease, stage 3 (moderate)

== ENCOUNTER → 2016-09-08 | Outpatient (CLI) | payer OTHER | LOC: C.LABCC 07:51 | PROVIDERS: ATTEND Internal Medicine | DX: I48.91 Unspecified atrial fibrillation (principal) ==

== ENCOUNTER 2016-09-14 13:40 | Emergency (ER) | payer OTHER ==
[~2016-09-14] VITALS: Ht 190.5 cm; Wt 126.2 kg
[~2016-09-14 13:40] MED LIST changes: -ACET325T96 PO; -ASCA500 PO; -CLIN150C15 PO; -CLIN300C10; -CMD10 PO; -CRG125 PO; -CRS/10 PO; -CYCL10TA6 PO; -ERGO1TAB12 PO; -FRS/40 PO; -FURO40TA3 PO; -NTRGSL/4 UT; -POTA20TA16 PO; -PRLSR20 PO
[2016-09-14 13:50] VITALS: TEMP 36.4; Ht 190.5 cm; Wt 126.2 kg
--- NOTE | 2016-09-14 15:34 | EMERGENCY ROOM VISIT NOTE ---
History Report prepared by Mick: Asia Saldaña Under the Supervision of: Dr. Kevin Foley D.O. First contact with patient: 14:07 Chief Complaint: HYPOGLYCEMIA Stated Complaint: HYPOGLYCEMIA Nursing Triage Summary: Patient arrives via ALS from home. Patient discharged from [facility] yesterday, home health nurse saw the patient last evening and bought im a meal, but patient did not have much food at his house from being at [facility]. Patient appeared to be slouched over and unresponsive when home health nurse arrived, she called 911. EMS arrived on scene and checked his BSG and it was 26. Patient was given D10 and bsg increased to 47 after treatment. Patient reports giving himself his dose of insulin without checking his BSG this morning and without eating breakfast. Denies pain. History of Present Illness The patient is an 80 year old male who presents to the Emergency Room with complaints of persistent hypoglycemia starting today. The patient presents to the ED by EMS. He was discharged from [facility] yesterday to home. The home health nurse checked on him yesterday at 1600 and brought 2 frozen meals for him. This morning he woke up and gave himself insulin. He then realized that he did not have food in his house and was unable to eat this morning. The home health nurse came to check on him today and found him slumped in his chair. EMS was called and they found that his blood sugar was 26. He was given D10. He has had 2 cokes, jose crackers, and peanut butter since arriving to the ED. He is currently feeling well. He does not have any complaints. Source of History: patient, nursing staff Onset: today Position: other (global) Quality: other (hypoglycemia) Timing: other (persistent) Note: Pt was slumped over. Pt currently denies any complaints. Review of Systems See HPI for pertinent positives & negatives. A total of 10 systems reviewed and were otherwise negative. 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 Family History No pertinent family history Social History Smoking Status: Never Smoker Drug Use: none Marital Status: Housing Status: lives alone Occupation Status: retired Current/Historical Medications Scheduled Albuterol Hfa (Ventolin Hfa), 2 PUFFS INH Q6H Ascorbic Acid (Vitamin C), 500 MG PO BID Aspirin (Aspirin EC Low Dose), 81 MG PO QAM Ergocalciferol (Vitamin D2), 50,000 UNITS PO MONTHLY Furosemide (Lasix), 40 MG PO QPM AT 1630 Furosemide (Lasix), 80 MG PO QAM AT 0830 Insulin Aspart 70/30 (Novolog Mix 70/30), 25 SC QAM Insulin Aspart 70/30 (Novolog Mix 70/30), 45 SC QPM Lisinopril (Lisinopril), 20 MG PO DAILY Metoprolol Tartrate (Lopressor), 25 MG PO BID Mirtazapine (Remeron), 15 MG PO HS Multivitamins/Minerals (Mvi With Minerals), 1 TAB PO QAM Nutritional Supplements (Prosource No Carb), 30 ML PO BID Nutritional Supplements (Boost Pudding), 1 CUP PO TIDM Omeprazole (Prilosec), 20 MG PO BID Potassium Ext Rel (Klor-Con), 40 MEQ PO QAM Prednisone (Prednisone), 15 MG PO UD Rosuvastatin Calcium (Crestor), 10 MG PO QPM Senna/Docusate Sod (Senokot S), 1 TAB PO QAM Sulfa/Trimethoprim (Bactrim Ds 800MG/160MG), 1 TAB PO BID Warfarin Sod (Coumadin), 5 MG PO DAILY@16 [Protein Liquid], 30 ML PO BID Scheduled PRN Acetaminophen Tab (Tylenol), 650 MG PO Q6H PRN for Pain or Fever Hydrocodone/Acetaminophen 5MG/325MG ([place] 5MG/325MG), 1 TABLET PO TID PRN for Pain Nitroglycerin (Nitrostat), 0.4 MG UT PRN PRN for Chest Pain Tramadol (Ultram), 50 MG PO Q6H PRN for Pain Allergies Coded Allergies: NO KNOWN DRUG ALLERGIES (Verified Allergy, Unknown, ., 07/17/16) Physical Exam Vital Signs Date Time Temp Pulse Resp B/P (MAP) Pulse Ox O2 Delivery O2 Flow Rate FiO2 09/14/16 15:16 65 18 99/45 99 Room Air 09/14/16 13:59 64 09/14/16 13:50 36.4 72 18 113/50 97 Room Air Physical Exam CONSTITUTIONAL/VITAL SIGNS: Reviewed / noted above. GENERAL: Non-toxic in appearance. INTEGUMENTARY: Warm, dry, and [place]. HEAD: Normocephalic. EYES: without scleral icterus or trauma. ENT/OROPHARYNX: clear and moist. LYMPHADENOPATHY/NECK: Is supple without lymphadenopathy or meningismus. RESPIRATORY: Lungs clear and equal. CARDIOVASCULAR: Regular rate and rhythm. GI/ABDOMEN: Soft and nontender. No organomegaly or pulsatile mass. No rebound or guarding. Normal bowel sounds. EXTREMITIES: Warm and well perfused. BACK: No CVA tenderness. NEUROLOGICAL: Intact without focal deficits. PSYCHIATRIC: normal affect. MUSCULOSKELETAL: Normally developed with good muscle tone. Medical Decision & Procedures Laboratory Results Test 09/14/16 16:00 Laboratory results as stated above per my review. Medications Administered Medications (Trade) Dose Ordered Sig/Aileen Route Start Time Stop Time Status Last Admin Dose Admin Acetaminophen/ Hydrocodone Bitart ([place] 5/325 Tab) 1 tab ONE STAT PO 09/14/16 15:35 09/14/16 15:37 DC 09/14/16 15:52 1 TAB ED Course 1414: Previous medical records were reviewed. The patient was evaluated in room C6. A complete history and physical examination was performed. 1535: Hydrocodone Bitart/Acetaminophen 1 tab PO. 1540: On reevaluation, the patient is resting comfortably. I discussed the results and findings with the patient. He verbalized agreement of the treatment plan. He was discharged home. Medical Decision Differential includes acute coronary syndrome, myocardial infarction, CVA, TIA, anemia, infection, pneumonia, UTI, pyelonephritis, poor nutrition, dehydration, electrolyte disturbance,hypoglycemia. This is an 80-year-old male who presents to the ED with a chief complaint of low blood sugar. The patient was discharged from [facility] yesterday. He did not have food in his house and he took his usual morning medications including his insulin. A home health nurse checked on him this morning and found him to be unresponsive. EMS found a blood sugar of 26. He is provided with IV dextrose and his mental status improved. He also was provided with some food here. His blood sugar continued to improve here. We had case management talk with him and his outpatient providers to make sure that he has appropriate support and food. The patient was felt to be stable for discharge. The patient remained asymptomatic during his ED stay here. Arrangements have been made for the patient had food in his house tonight. Medication Reconcilliation Current Medication List: was personally reviewed by me Blood Pressure Screening Patient's blood pressure: Normal blood pressure Blood pressure disposition: Did not require urgent referral Impression Primary Impression: Hypoglycemia Scribe Attestation The scribe's documentation has been prepared under my direction and personally reviewed by me in its entirety. I confirm that the note above accurately reflects all work, treatment, procedures, and medical decision making performed by me. Departure Information Dispostion Home / Self-Care Referrals No Doctor, Assigned (PCP) Patient Instructions [facility] Additional Instructions Make sure that you eat at the time you take your insulin. If you do not have food to eat immediately after time you take your insulin, do not take the insulin. Follow-up with your doctor for further care and evaluation in 1-2 days. Return to the emergency department for worsening or new symptoms or any concerns. You have been examined and treated today on an emergency basis only. This is not a substitute for, or an effort to provide, complete comprehensive medical care. It is impossible to recognize and treat all injuries or illnesses in a single emergency department visit. It is therefore important that you follow up closely with your doctor. Call as soon as possible for an appointment.
[2016-09-14] MEDS ORDERED: HYDROCODONE/ACETAMOPHEN 5/325MG TAB PO STA (15:35)
[2016-09-14 16:31] VITALS: BP 101/60; PULSE 72; O2SAT 98
[2016-09-27] MEDS ORDERED: NVLGI7030 SC (08:17)
[2016-09-27] MEDS ORDERED: NTRGSL/4 UT (11:38)
[2016-09-27] MEDS ORDERED: PRLSR20 PO (11:38)
[2016-09-27] MEDS ORDERED: FRS/40 PO (11:38)
[2016-11-03] MEDS ORDERED: CLIN300C10 (14:29)
[2016-11-03] MEDS ORDERED: CLIN150C15 PO (14:29)
== END 2016-09-14 17:08 | disposition home or self-care (01) ==
LOC: EDBD 13:40 → C.EDC 13:41
DX: E16.2 Hypoglycemia, unspecified (principal); I48.91 Unspecified atrial fibrillation; I10 Essential (primary) hypertension; E11.9 Type 2 diabetes mellitus without complications; E78.5 Hyperlipidemia, unspecified; K21.9 Gastro-esophageal reflux disease without esophagitis; Z86.711 Personal history of pulmonary embolism; Z87.442 Personal history of urinary calculi; Z87.448 Personal history of other diseases of urinary system; Z79.2 Long term (current) use of antibiotics; Z79.4 Long term (current) use of insulin; Z79.82 Long term (current) use of aspirin; Z79.899 Other long term (current) drug therapy

== ENCOUNTER 2016-09-27 13:22 | Emergency (ER) | payer OTHER ==
[~2016-09-27] VITALS: Ht 190.5 cm; Wt 120.0 kg
[~2016-09-27 13:22] MED LIST changes: +FRS/40 PO; +NTRGSL/4 UT; +PRLSR20 PO; -SULF800T23 PO
[2016-09-27 13:26] VITALS: TEMP 36.7; Ht 190.5 cm; Wt 120.0 kg
--- NOTE | 2016-09-27 13:39 | EMERGENCY ROOM VISIT NOTE ---
History Report prepared by Mick: Mary Jo Gonzalez Under the Supervision of: Dr. Kevin Wu M.D. First contact with patient: 13:32 Chief Complaint: HYPOGLYCEMIA Stated Complaint: SHAKY AND WEAK Nursing Triage Summary: TRIAGE NOTE: Pt assistested from private vehicle. pt aide reports "he has been in an out of consciousness and wouldn't eat his lunch i didn't know what else to do." aide reports that pt had his insulin today but did not eat. aide reports she is leaving while pt in triage. bsg found to be 32 in triage. pt given juice and coke in triage. History of Present Illness The patient is a 81 year old male who presents to the Emergency Room with complaints of sudden hypoglycemia beginning today. He also has been feeling shaky and weak. The patient also complains of neck pain that started 6 weeks ago. Source of History: patient Onset: today Position: other (global) Quality: other (hypoglycemia) Timing: other (sudden) Associated Symptoms: + neck pain, + weakness Review of Systems See HPI for pertinent positives & negatives. A total of 10 systems reviewed and were otherwise negative. 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 Family History No pertinent family history Social History Smoking Status: Never Smoker Drug Use: none Marital Status: Housing Status: lives alone Occupation Status: retired Current/Historical Medications Scheduled Albuterol Hfa (Ventolin Hfa), 2 PUFFS INH Q6H Ascorbic Acid (Vitamin C), 500 MG PO BID Aspirin (Aspirin EC Low Dose), 81 MG PO QAM Carvedilol (Carvedilol), 37.5 MG PO QAM Cyclobenzaprine Hcl (Flexeril), 5 MG PO TID Ergocalciferol (Vitamin D2), 50,000 UNITS PO MONTHLY Furosemide (Lasix), 40 MG PO QPM Furosemide (Lasix), 80 MG PO QAM Insulin Aspart 70/30 (Novolog Mix 70/30), 75 UNITS SC TID Lisinopril (Lisinopril), 20 MG PO DAILY Metoprolol Tartrate (Lopressor), 25 MG PO BID Omeprazole (Prilosec), 20 MG PO BID Potassium Ext Rel (Klor-Con), 40 MEQ PO QAM Prednisone (Prednisone), 5 MG PO DAILY Rosuvastatin Calcium (Crestor), 10 MG PO QPM Warfarin Sod (Coumadin), 10 MG PO DAILY Scheduled PRN Acetaminophen Tab (Tylenol), 650 MG PO Q6H PRN for Pain or Fever Hydrocodone/Acetaminophen 5MG/325MG ([place] 5MG/325MG), 1 TABLET PO TID PRN for Pain Nitroglycerin (Nitrostat), 0.4 MG UT PRN PRN for Chest Pain Allergies Coded Allergies: NO KNOWN DRUG ALLERGIES (Verified Allergy, Unknown, ., 09/27/16) Physical Exam Vital Signs Date Time Temp Pulse Resp B/P (MAP) Pulse Ox O2 Delivery O2 Flow Rate FiO2 09/27/16 16:53 85 18 149/76 97 09/27/16 15:14 83 18 154/79 97 Room Air 09/27/16 13:38 76 09/27/16 13:26 36.7 99 20 167/69 99 Room Air Physical Exam GENERAL: Patient is a healthy-appearing well-nourished male HEAD: Normocephalic atraumatic EYES: Ocular movements intact pupils equal and react to light OROPHARYNX mucous membranes are moist no exudates present no erythema or edema present NECK: Supple no nuchal rigidity CHEST: Good equal expansion LUNGS: Clear and equal to auscultation CARDIAC: Normal S1 and S2 ABDOMEN: Soft nontender no guarding BACK: No CVA tenderness EXTREMITIES: No pain upon palpation normal muscle strength in all groups no clubbing cyanosis or edema NEURO: Patient is following commands and answering questions appropriately. Alert and oriented x3 Cranial Nerves 2-12 grossly intact Medical Decision & Procedures Laboratory Results Test 09/27/16 14:55 Bedside Glucose 128 mg/dl (70-99) Medications Administered Medications (Trade) Dose Ordered Sig/Aileen Route Start Time Stop Time Status Last Admin Dose Admin Acetaminophen (Tylenol Tab) 1,000 mg NOW STAT PO 09/27/16 15:04 09/27/16 15:05 DC 09/27/16 15:13 1,000 MG Cyclobenzaprine HCl (Flexeril Tab) 5 mg NOW STAT PO 09/27/16 15:04 09/27/16 15:05 DC 09/27/16 15:12 5 MG ED Course 1332: Past medical records reviewed. The patient was evaluated in room B3. A complete history and physical examination was performed. 1504: Ordered Flexeril Tab 5 mg PO, Tylenol Tab 1,000 mg PO. 1515: Upon reexamination the patient is resting comfortably. I discussed results and treatment plan with the patient. He verbalizes agreement and understanding. The patient is ready for discharge. Medical Decision Differential diagnosis: Etiologies such as metabolic, infection, hypo/hyperglycemia, electrolyte abnormalities, cardiac sources, intracerebral event, toxicologic, neurologic, as well as others were entertained. This is an 81-year-old male who presents emergency department complaining of hypoglycemia. The patient reports he did not eat after taking his insulin for lunch today. For this reason the patient was given soda and [place] use upon arrival to the emergency department. He was fed his lunch. His blood sugar remained elevated at 128. I feel that the patient can be safely discharged home for follow-up with his primary care physician. Patient was in agreement with the treatment plan. Medication Reconcilliation Current Medication List: was personally reviewed by me Blood Pressure Screening Patient's blood pressure: Elevated blood pressure Blood pressure disposition: Referred to PCP Impression Primary Impression: Hypoglycemia Scribe Attestation The scribe's documentation has been prepared under my direction and personally reviewed by me in its entirety. I confirm that the note above accurately reflects all work, treatment, procedures, and medical decision making performed by me. Departure Information Dispostion Home / Self-Care Prescriptions Cyclobenzaprine Hcl (FLEXERIL) 10 Mg Tab 5 MG PO TID, #21 TAB Prov: Kevin Wu MD 09/27/16 Referrals Jennifer Ryder M.D. (PCP) Forms HOME CARE DOCUMENTATION FORM, IMPORTANT VISIT INFORMATION, WORK / SCHOOL INSTRUCTIONS Patient Instructions Hypoglycemia, My [facility] Additional Instructions Follow up with DR Ryder's office You were found to have an elevated blood pressure today (>120 sytolic or >90 diastolic). Per medicare guidelines, you need to follow up with this blood pressure screening with your Primary Care Physician (PCP). For a new PCP call [phone]. You have been examined and treated today on an emergency basis only. This is not a substitute for, or an effort to provide, complete comprehensive medical care. It is impossible to recognize and treat all injuries or illnesses in a single emergency department visit. It is therefore important that you follow up closely with Dr Ryder. Call as soon as possible for an appointment. Thank you for your time and consideration. I look forward to speaking with you again soon. Please don't hesitate to call us if you have any questions.
[2016-09-27] MEDS ORDERED: PRED-301 PO (14:37)
[2016-09-27] MEDS ORDERED: CMD10 PO (14:37)
[2016-09-27] MEDS ORDERED: CRG125 PO (14:37)
[2016-09-27] MEDS ORDERED: CYCLOBENZAPRINE HCL 5 MG TAB PO STA (15:04)
[2016-09-27] MEDS ORDERED: ACETAMINOPHEN 500 MG TAB PO STA (15:04)
[2016-09-27] MEDS ORDERED: CYCL10TA6 PO (15:14)
[2016-09-27] MEDS ORDERED: ERGO1TAB12 PO (16:26)
[2016-09-27] MEDS ORDERED: FURO40TA3 PO (16:43)
[2016-09-27] MEDS ORDERED: POTA20TA16 PO (16:43)
[2016-09-27] MEDS ORDERED: ACET325T96 PO (16:43)
[2016-09-27] MEDS ORDERED: CRS/10 PO (16:43)
[2016-09-27 16:53] VITALS: BP 149/76; PULSE 85; O2SAT 97
[2016-09-27] MEDS ORDERED: ASCA500 PO (17:58)
[2016-11-03] MEDS ORDERED: CLIN150C15 PO (14:29)
[2016-11-03] MEDS ORDERED: CLIN300C10 (14:29)
== END 2016-09-27 16:45 | disposition home or self-care (01) ==
LOC: C.EDB 13:23
DX: E11.649 Type 2 diabetes mellitus with hypoglycemia without coma (principal); M54.2 Cervicalgia; R53.1 Weakness; I48.91 Unspecified atrial fibrillation; I10 Essential (primary) hypertension; E78.5 Hyperlipidemia, unspecified; Z79.01 Long term (current) use of anticoagulants; Z79.4 Long term (current) use of insulin; Z79.82 Long term (current) use of aspirin; Z79.899 Other long term (current) drug therapy; Z86.711 Personal history of pulmonary embolism; Z86.718 Personal history of other venous thrombosis and embolism; Z87.442 Personal history of urinary calculi; Z87.448 Personal history of other diseases of urinary system; Z95.5 Presence of coronary angioplasty implant and graft; L89.612 Pressure ulcer of right heel, stage 2; L89.312 Pressure ulcer of right buttock, stage 2; I87.2 Venous insufficiency (chronic) (peripheral); L97.929 Non-pressure chronic ulcer of unspecified part of left lower leg with unspecified severity; N17.9 Acute kidney failure, unspecified; D64.9 Anemia, unspecified; N18.3 Chronic kidney disease, stage 3 (moderate); E11.9 Type 2 diabetes mellitus without complications

== ENCOUNTER 2016-12-14 17:17 | Inpatient (IN) | payer OTHER ==
[~2016-12-14] VITALS: Ht 190.5 cm; Wt 131.9 kg
[~2016-12-14 17:17] MED LIST changes: +ACET325T96 PO; +ASCA500 PO; +CLIN150C15 PO; +CMD10 PO; -CMD5 PO; +CRG125 PO; +CRS/10 PO; +ERGO1TAB12 PO; +FURO40TA3 PO; -MIRT15TA3 PO; -MULTTAB PO; -NUTR-1049 PO; -NUTRMIS PO; +POTA20TA16 PO; -PROTEIN LIQUID PO; -SENN-65 PO; -TRAM-10 PO
--- NOTE | 2016-12-14 17:29 | EMERGENCY ROOM VISIT NOTE ---
History Report prepared by Mick: Ming Foley Under the Supervision of: Dr. Rex Reyes D.O. First contact with patient: 17:17 Chief Complaint: SHORTNESS OF BREATH Stated Complaint: SOB History of Present Illness The patient is a 81 year old male who presents to the Emergency Room with complaints of hyperglycemia that began recently. He states that recently he has not been feeling well so he went to a [facility] that showed him in atrial fibrillation. He has been having shortness of breath especially with lying flat. His sugars were recorded at 582. Per EMS, his O2 Sat was 88% on room air. He denies any coughing or vomiting. He has a history of arthritic gout and has compression stockings on. Source of History: patient Onset: recently Position: other (Global) Symptom Intensity: BSG 582 Quality: other (Hyperglycemia) Timing: constant Associated Symptoms: + SOB, No cough, No vomiting Review of Systems See HPI for pertinent positives & negatives. A total of 10 systems reviewed and were otherwise negative. 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 (18) SOB (shortness of breath) Family History No pertinent family history Social History Smoking Status: Never Smoker Smokeless Tobacco Use: No Drug Use: none Marital Status: Housing Status: lives alone Occupation Status: retired Current/Historical Medications Scheduled Allopurinol (Zyloprim), 300 MG PO QAM Amlodipine (Norvasc), 5 MG PO DAILY Ergocalciferol (Vitamin D2), 50,000 UNITS PO MONTHLY Furosemide (Furosemide), 80 MG PO BID Gabapentin (Gabapentin), 100 MG PO TID Insulin Aspart 70/30 (Novolog Mix 70/30), 55 UNITS SC QAM Insulin Aspart 70/30 (Novolog Mix 70/30), 45 UNITS SC QPM Lactobacillus Acidophilus (Lactinex), 1 TAB PO BID Lisinopril (Zestril), 20 MG PO BID Metoprolol Tartrate (Lopressor), 25 MG PO BID Mirtazapine Soltab (Remeron Soltab), 15 MG PO HS Omeprazole (Prilosec), 20 MG PO QAM Potassium Ext Rel (Klor-Con), 20 MEQ PO BID Prednisone (Prednisone), 5 MG PO DAILY Rosuvastatin Calcium (Crestor), 10 MG PO QPM Senna/Docusate Sod (Senokot S), 1 TAB PO DAILY Warfarin Sod (Coumadin), 10 MG PO UNKNOWN Scheduled PRN Acetaminophen Tab (Tylenol), 650 MG PO Q6H PRN for Pain or Fever Albuterol Hfa (Ventolin Hfa), 1-2 PUFFS INH Q6H PRN for SOB/Wheezing Cyclobenzaprine Hcl (Flexeril), 10 MG PO TID PRN for Muscle Spasms Hydrocodone/Acetaminophen 5MG/325MG ([place] 5MG/325MG), 1 TABLET PO TID PRN for Pain Nitroglycerin (Nitrostat), 0.4 MG UT PRN PRN for Chest Pain Tramadol (Ultram), 50 MG PO Q6 PRN for Pain Allergies Coded Allergies: NO KNOWN DRUG ALLERGIES (Verified Allergy, Unknown, ., 12/14/16) Physical Exam Vital Signs Date Time Temp Pulse Resp B/P (MAP) Pulse Ox O2 Delivery O2 Flow Rate FiO2 12/14/16 19:53 Nasal Cannula 12/14/16 17:37 95 Nasal Cannula 5.0 12/14/16 17:37 95 Nasal Cannula 5.0 12/14/16 17:37 Nasal Cannula 5.0 12/14/16 17:37 36.5 111 20 155/107 97 Nasal Cannula 5.0 12/14/16 17:29 106 Physical Exam GENERAL: Patient is awake, alert, and in no acute distress. Patient is resting comfortably but somewhat anxious appearing. Appears to be short of breath. EYES: The conjunctivae are clear. The pupils are round and reactive. EARS, NOSE, MOUTH AND THROAT: The nose is without any evidence of any deformity. Mucous membranes are moist tongue is midline NECK: The neck is nontender and supple. RESPIRATORY: Lung sounds diminished throughout. There were rales noted to all lung penn. Significant tachypnea and conversational dyspnea noted. CARDIOVASCULAR: Tachycardic and irregular. No definite murmur was appreciated to auscultation. GASTROINTESTINAL: The abdomen is soft. Bowel sounds are present in all quadrants. Abdomen is nontender MUSCULOSKELETAL/EXTREMITIES: There is no evidence of gross deformity full range of motion is noted in the hips and shoulders. Compression wrappings to both lower extremities. SKIN: Pedal edema noted bilaterally. There is no obvious evidence of any rash. There are no petechiae, pallor or cyanosis noted. NEUROLOGIC: Patient is awake alert and oriented x3 Medical Decision & Procedures ER Provider Diagnostic Interpretation: Radiology results as stated below per my review and radiologist interpretation: CHEST ONE VIEW PORTABLE CLINICAL HISTORY: EVALUATE RESPIRATORY DISTRESS.DYSPNEA dyspnea COMPARISON STUDY: 07/17/2016 FINDINGS: The heart is enlarged. Prior median sternotomy. Prominent pulmonary vasculature. Diaphragms smooth. IMPRESSION: Pulmonary edema slightly increased in prominence compared to the prior exam The above report was generated using voice recognition software. It may contain grammatical, syntax or spelling errors. Electronically signed by: Andrew Cherry M.D. 12/14/2016 5:49 PM Dictated Date/Time: 12/14/2016 5:48 PM Laboratory Results 12/14/16 18:10 Red Blood Count 3.88, Mean Corpuscular Volume 94.1, Mean Corpuscular Hemoglobin 30.2, Mean Corpuscular Hemoglobin Concent 32.1, Mean Platelet Volume 9.5, Neutrophils (%) (Auto) 80.6, Lymphocytes (%) (Auto) 8.9, Monocytes (%) (Auto) 7.5, Eosinophils (%) (Auto) 2.5, Basophils (%) (Auto) 0.2, Neutrophils # (Auto) 7.27, Lymphocytes # (Auto) 0.80, Monocytes # (Auto) 0.68, Eosinophils # (Auto) 0.23, Basophils # (Auto) 0.02 12/14/16 18:10 Test 12/14/16 18:10 12/14/16 19:00 White Blood Count 9.03 K/uL (4.8-10.8) Red Blood Count 3.88 M/uL (4.7-6.1) Hemoglobin 11.7 g/dL (14.0-18.0) Hematocrit 36.5 % (42-52) Mean Corpuscular Volume 94.1 fL (80-100) Mean Corpuscular Hemoglobin 30.2 pg (25-34) Mean Corpuscular Hemoglobin Concent 32.1 g/dl (32-36) Platelet Count 156 K/uL (130-400) Mean Platelet Volume 9.5 fL (7.4-10.4) Neutrophils (%) (Auto) 80.6 % Lymphocytes (%) (Auto) 8.9 % Monocytes (%) (Auto) 7.5 % Eosinophils (%) (Auto) 2.5 % Basophils (%) (Auto) 0.2 % Neutrophils # (Auto) 7.27 K/uL (1.4-6.5) Lymphocytes # (Auto) 0.80 K/uL (1.2-3.4) Monocytes # (Auto) 0.68 K/uL (0.11-0.59) Eosinophils # (Auto) 0.23 K/uL (0-0.5) Basophils # (Auto) 0.02 K/uL (0-0.2) RDW Standard Deviation 56.3 fL (36.4-46.3) RDW Coefficient of Variation 16.4 % (11.5-14.5) Immature Granulocyte % (Auto) 0.3 % Immature Granulocyte # (Auto) 0.03 K/uL (0.00-0.02) Prothrombin Time 13.4 SECONDS (9.0-12.0) Prothromb Time International Ratio 1.2 (0.9-1.1) Activated Partial Thromboplast Time 30.6 SECONDS (21.0-31.0) Partial Thromboplastin Ratio 1.2 Venous Blood pH 7.37 (7.36-7.41) Venous Blood Partial Pressure CO2 46 mmHg (38.0-50.0) Venous Blood Partial Pressure O2 38 mmHg Venous Blood HCO3 26 mmol/L Venous Blood Oxygen Saturation 67.0 % Venous Blood Base Excess 0.8 mEq/L Anion Gap 8.0 mmol/L (3-11) Est Creatinine Clear Calc Drug Dose 56.9 ml/min Estimated GFR () 48.3 Estimated GFR (Non- 41.7 BUN/Creatinine Ratio 18.2 (10-20) Calcium Level 8.9 mg/dl (8.5-10.1) Total Bilirubin 0.5 mg/dl (0.2-1) Aspartate Amino Transf (AST/SGOT) 25 U/L (15-37) Alanine Aminotransferase (ALT/SGPT) 29 U/L (12-78) Alkaline Phosphatase 120 U/L (45-117) Total Creatine Kinase 57 U/L (39-308) Creatine Kinase MB 4.8 ng/ml (0.5-3.6) Creatine Kinase MB Ratio 8.4 (0-3.0) Troponin I 0.909 ng/ml (0-0.045) Pro-B-Type Natriuretic Peptide 7427 pg/ml (0-1800) Total Protein 7.2 gm/dl (6.4-8.2) Albumin 3.2 gm/dl (3.4-5.0) Globulin 4.0 gm/dl (2.5-4.0) Albumin/Globulin Ratio 0.8 (0.9-2) Beta-Hydroxybutyric Acid 1.59 mg/dL (0.2-2.81) Urine Color YELLOW Urine Appearance CLEAR (CLEAR) Urine pH 5.5 (4.5-7.5) Urine Specific [place] 1.022 (1.000-1.030) Urine Protein 1+ (NEG) Urine Glucose (UA) 3+ (NEG) Urine Ketones NEG (NEG) Urine Occult Blood NEG (NEG) Urine Nitrite NEG (NEG) Urine Bilirubin NEG (NEG) Urine Urobilinogen NEG (NEG) Urine Leukocyte Esterase NEG (NEG) Urine WBC (Auto) 1-5 /hpf (0-5) Urine RBC (Auto) 0-4 /hpf (0-4) Urine Hyaline Casts (Auto) 1-5 /lpf (0-5) Urine Epithelial Cells (Auto) >30 /lpf (0-5) Urine Bacteria (Auto) NEG (NEG) Laboratory results per my review. Medications Administered Medications (Trade) Dose Ordered Sig/Aileen Route Start Time Stop Time Status Last Admin Dose Admin Aspirin (Aspirin Chew) 324 mg NOW STAT PO 12/14/16 18:47 12/14/16 18:48 DC 12/14/16 18:59 324 MG Furosemide (Lasix Inj) 40 mg NOW STAT IV 12/14/16 18:47 12/14/16 18:48 DC 12/14/16 18:59 40 MG Insulin Human Regular (novoLIN-R U-100 PER UNIT) 4 units NOW STAT IV 12/14/16 18:47 11/1/17 18:48 DC 12/14/16 19:12 4 UNITS ECG Indication: SOB/dyspnea Rate (beats per minute): 120 Rhythm: atrial fibrillation, other (with RVR) Findings: ST depression (diffuse), no ectopy Comparison ECG Date: 09/14/2016 Change: ST segments are new ED Course 1717: The patient was evaluated in room B6. A complete history and physical examination were performed. 1847: Ordered Insulin Human Regular 4 units IV, Lasix Inj 40 mg IV, Aspirin 324 mg PO 185: Upon reevaluation, the patient is resting. I discussed results and treatment plan with him. He verbalizes agreement and understanding. [facility] The patient will be evaluated for further management and care. Medical Decision Differential diagnosis: Etiologies such as infections, reactive airway disease, pneumonia, pneumothorax , COPD, CHF, cardiac ischemia, pulmonary embolism, musculoskeletal, gastrointestinal, as well as others were entertained. Nursing notes reviewed. Additional history is obtained from the prehospital personnel. The patient is an 81-year-old male who presented to the emergency department for an evaluation of shortness of breath. The patient and shortness of breath and orthopnea. The patient's history and physical exam appeared to be consistent with volume overload. His EKG revealed rapid fibrillation with new ST segment abnormalities. I feel it is possible that his EKG could be consistent with ischemia which could be leading him to have pulmonary edema. The patient was found have an elevated troponin. I discussed the patient's laboratory and radiographic studies him. I discussed his case with the on-call [facility] group. They've agreed to evaluate the patient in the emergency apartment for further management and disposition. Medication Reconcilliation Current Medication List: was personally reviewed by me Blood Pressure Screening Patient's blood pressure: Elevated blood pressure Blood pressure disposition: Elevated BP felt to be situational Consults Time Called: 1854 Consulting Physician: Dr. Levy - [facility] Returned Call: [phone] I discussed the patient's case with them. The patient will be evaluated for further management. Impression Primary Impression: NSTEMI (non-ST elevated myocardial infarction) Additional Impressions: Abnormal ECG Hypoxia Hyperglycemia A-fib Scribe Attestation The scribe's documentation has been prepared under my direction and personally reviewed by me in its entirety. I confirm that the note above accurately reflects all work, treatment, procedures, and medical decision making performed by me. Departure Information Dispostion Being Evaluated By Hospitalist Prescriptions Gabapentin (Gabapentin) 100 Mg Cap 100 MG PO TID, #30 Prov: Keith Louise MD 12/14/16 Referrals Jennifer Ryder M.D. (PCP) Patient Instructions My [facility] Health Problem Qualifiers Additional Impressions: A-fib Atrial fibrillation type: unspecified Qualified Codes: I48.91 - Unspecified atrial fibrillation
--- NOTE | 2016-12-14 17:50 | DIAGNOSTIC IMAGING REPORT ---
CHEST ONE VIEW PORTABLE CLINICAL HISTORY: EVALUATE RESPIRATORY DISTRESS.DYSPNEA dyspnea COMPARISON STUDY: 07/17/2016 FINDINGS: The heart is enlarged. Prior median sternotomy. Prominent pulmonary vasculature. Diaphragms smooth. IMPRESSION: Pulmonary edema slightly increased in prominence compared to the prior exam The above report was generated using voice recognition software. It may contain grammatical, syntax or spelling errors. Electronically signed by: Andrew Cherry M.D. 12/14/2016 5:49 PM Dictated Date/Time: 12/14/2016 5:48 PM
[2016-12-14 18:20] LABS: BASO % 0.2 %; BASO ABS # 0.02 K/uL (0-0.2); COMPLETE YES; EOS % 2.5 %; HEMATOCRIT 36.5 % (42-52); IG% 0.3 %; LYMPH % 8.9 %; MEAN CELL VOLUME 94.1 fL (80-100); MEAN CORPUSCULAR HEMOGLOBIN 30.2 pg (25-34); MEAN CORPUSCULAR HGB CONC 32.1 g/dl (32-36); MEAN PLATELET VOLUME 9.5 fL (7.4-10.4); MONO % 7.5 %; NEUT % 80.6 %; PLATELET COUNT 156 K/uL (130-400); RED BLOOD COUNT 3.88 M/uL (4.7-6.1); WHITE BLOOD COUNT 9.03 K/uL (4.8-10.8)
[2016-12-14 18:24] LABS: VEN BLOOD GAS BASE EXCESS 0.8 mEq/L
[2016-12-14 18:33] LABS: INR 1.2 (0.9-1.1); PARTIAL THROMBOPLASTIN RATIO 1.2; PROTHROMBIN TIME (PATIENT) 13.4 SECONDS (9.0-12.0)
[2016-12-14 18:41] LABS: BETA-HYDROXYBUTYRATE 1.59 mg/dL (0.2-2.81); BUN/CREATININE RATIO 18.2 (10-20); CALCIUM 8.9 mg/dl (8.5-10.1); CREATININE 1.54 mg/dl (0.60-1.40); POTASSIUM 4.9 mmol/L (3.5-5.1)
[2016-12-14 18:45] LABS: ALB/GLOB RATIO 0.8 (0.9-2); CKMB/CK RATIO 8.4 (0-3.0)
[2016-12-14] MEDS ORDERED: ASPIRIN 81 MG CHEW PO STA (18:47)
[2016-12-14] MEDS ORDERED: FUROSEMIDE 40 MG/4 ML VIAL IV STA (18:47)
[2016-12-14] MEDS ORDERED: NovoLIN-R INSULIN PER UNIT CHARGE IV STA (18:47)
[2016-12-14] MEDS ORDERED: NRN100 PO ×2 (19:12→20:04)
[2016-12-14] MEDS ORDERED: MIRT15TA2 PO (19:12)
[2016-12-14] MEDS ORDERED: LISI-725 PO (19:12)
[2016-12-14] MEDS ORDERED: LCTX PO (19:12)
[2016-12-14] MEDS ORDERED: SENN-65 PO (19:12)
[2016-12-14] MEDS ORDERED: LSX80 PO (19:12)
[2016-12-14] MEDS ORDERED: VNTHFA/IN INH (19:12)
[2016-12-14] MEDS ORDERED: CYCL10TA6 PO (19:12)
[2016-12-14] MEDS ORDERED: TRAM-10 PO (19:12)
[2016-12-14] MEDS ORDERED: ALLO300T2 PO (19:12)
[2016-12-14] MEDS ORDERED: AMLO-110 PO (19:12)
[2016-12-14] MEDS ORDERED: GABA-112 PO (19:12)
[2016-12-14] MEDS ORDERED: NVLGI7030 SC (19:12)
[2016-12-14 19:31] LABS: URINE APPEARANCE CLEAR (CLEAR); URINE BILIRUBIN NEG (NEG); URINE COLOR YELLOW; URINE EPITHELIAL CELL AUTO >30 /lpf (0-5); URINE NITRITE NEG (NEG); URINE PH 5.5 (4.5-7.5); URINE SPECIFIC GRAVITY 1.022 (1.000-1.030); UROBILINOGEN NEG (NEG)
[2016-12-14 19:35] LABS: MANUAL MICROSCOPIC REQUIRED? NO; REVIEW REQ? NO
[2016-12-14 19:53] VITALS: BMI 38.8
[2016-12-14] MEDS ORDERED: METOPROLOL TARTRATE 1 MG/ML VIAL IV PRN (20:00)
[2016-12-14] MEDS ORDERED: NITROGLYCERIN 0.4 MG SL PER TAB CHARGE UT PRN (20:00)
[2016-12-14] MEDS ORDERED: ALUMINUM/MAGNESIUM/SIMETH (MAALOX MAX) 30 ML UDC PO PRN (20:00)
[2016-12-14] MEDS ORDERED: HYDROCODONE/ACETAMOPHEN 5/325MG TAB PO PRN (20:00)
[2016-12-14] MEDS ORDERED: TRAMADOL HCL 50 MG TAB PO PRN (20:00)
[2016-12-14] MEDS ORDERED: CYCLOBENZAPRINE HCL 10 MG TAB PO PRN (20:00)
[2016-12-14] MEDS ORDERED: ONDANSETRON INJ 2 MG/ML 2 ML VIAL IV PRN (20:00)
[2016-12-14] MEDS ORDERED: ALBUTEROL HFA 8 GM INHALER INH PRN (20:00)
[2016-12-14] MEDS ORDERED: ACETAMINOPHEN 325 MG TAB PO PRN ×2 (20:00)
[2016-12-14] MEDS ORDERED: MAGNESIUM HYDROXIDE SUSP 30 ML UDC PO PRN (20:00)
[2016-12-14] MEDS ORDERED: NITROGLYCERIN 0.4 MG SL PER TAB CHARGE SL PRN (20:00)
[2016-12-14] MEDS ORDERED: HEPARIN IV LOW DOSE NO BOLUS SCH (20:20)
[2016-12-14] MEDS ORDERED: PHARMACY GLYCEMIC MGMT CONSULT PRN (20:20)
[2016-12-14] MEDS ORDERED: WARFARIN SOD 5 MG TAB PO STA (20:21)
[2016-12-14] MEDS ORDERED: NovoLIN-R INSULIN PER UNIT CHARGE SQ STA (20:35)
[2016-12-14] MEDS ORDERED: INSULIN GLARGINE SOLOSTAR 100 UNITS/ML 3 ML PEN SC ONE (21:00)
[2016-12-14] MEDS ORDERED: INSULIN 70% ASPART PROTAMINE/30% ASPART SC SCH (21:00)
[2016-12-14] MEDS ORDERED: INSULIN ASPART 100 UNITS/ML 3 ML PEN SC ONE (21:15)
[2016-12-14] MEDS ORDERED: GLUCAGON FOR INJ 1 MG VIAL SQ PRN (21:30)
[2016-12-14] MEDS ORDERED: GLUCOSE 40% GEL 15 GM TUBE PO PRN (21:30)
[2016-12-14] MEDS ORDERED: GLUCOSE 10 TABS/TUBE PO PRN (21:30)
[2016-12-14] MEDS ORDERED: DEXTROSE 50% 50 ML SYR IV PRN (21:30)
[2016-12-14 22:05] VITALS: PULSE 119; O2SAT 95
[2016-12-14] MEDS: HEPARIN 25000 UNIT/ D5W 500 ML (PHARMACY PREPARED) IV PRN ×2 (22:10)
[2016-12-14] MEDS: LACTOBACILLUS ACIDOPHILUS (FLORANEX) TAB PO SCH (22:13)
[2016-12-14] MEDS: MIRTAZAPINE TAB 15 MG TAB PO SCH (22:13)
[2016-12-14] MEDS: LISINOPRIL 20 MG TAB PO SCH (22:14)
[2016-12-14] MEDS: METOPROLOL TARTRATE 25 MG TAB PO SCH (22:14)
[2016-12-14] MEDS: GABAPENTIN 100 MG CAP PO SCH (22:14)
[2016-12-14] MEDS: ROSUVASTATIN CALCIUM 10 MG TAB PO SCH (22:15)
[2016-12-14] MEDS: POTASSIUM CHLORIDE 20 MEQ TABCR PO SCH (22:16)
[2016-12-15] VITALS (8 sets, daily range): BP systolic 113–143; BP diastolic 67–97; PULSE 80–114; TEMP 36.3–36.8; O2SAT 93–98; Ht 190.5 cm; Wt 131.9 kg
[2016-12-15] MEDS: INSULIN ASPART 100 UNITS/ML 3 ML PEN SC SCH ×6 (00:30→21:00)
[2016-12-15 04:25] LABS: BASO % 0.4 %; BASO ABS # 0.03 K/uL (0-0.2); COMPLETE YES; EOS % 5.2 %; HEMATOCRIT 37.1 % (42-52); IG% 0.3 %; LYMPH % 14.9 %; LYMPH ABS # 1.04 K/uL (1.2-3.4); MEAN CELL VOLUME 95.1 fL (80-100); MEAN CORPUSCULAR HEMOGLOBIN 29.7 pg (25-34); MEAN CORPUSCULAR HGB CONC 31.3 g/dl (32-36); MEAN PLATELET VOLUME 9.6 fL (7.4-10.4); MONO % 8.6 %; NEUT % 70.6 %; PLATELET COUNT 167 K/uL (130-400); WHITE BLOOD COUNT 6.96 K/uL (4.8-10.8)
[2016-12-15 04:33] LABS: INR 1.2 (0.9-1.1); PARTIAL THROMBOPLASTIN RATIO 1.3; PROTHROMBIN TIME (PATIENT) 13.4 SECONDS (9.0-12.0)
[2016-12-15 04:47] LABS: BUN/CREATININE RATIO 21.2 (10-20); CALCIUM 8.8 mg/dl (8.5-10.1); CREATININE 1.38 mg/dl (0.60-1.40); MAGNESIUM 2.5 mg/dl (1.8-2.4); POTASSIUM 4.1 mmol/L (3.5-5.1)
[2016-12-15 04:52] LABS: CKMB/CK RATIO 8.8 (0-3.0)
--- NOTE | 2016-12-15 06:26 | HISTORY & PHYSICAL EXAMINATION ---
DATE OF ADMISSION: 12/14/2016 CHIEF COMPLAINT: Shortness of breath and palpitations. HISTORY OF PRESENT ILLNESS: This is an 81-year-old male with past medical history significant for chronic systolic heart failure secondary to ischemic cardiomyopathy with EF of 40%; CAD, status post CABG; hypertension; hyperlipidemia; atrial fibrillation, on Coumadin; diabetes type 2, insulin requiring; chronic kidney disease, baseline creatinine around 1.5; chronic anemia with baseline hemoglobin of 9, sleep apnea, gout, history of MRSA, history of decubitus wounds. Currently living in an apartment, presents with high sugar, shortness of breath and palpitations. Since couple of days,patient noticed that his sugars were running high and also noticed palpitations and was getting progressively short of breath, and he came to the ER. Denies any chest pain. He walks with the help of a walker and doing ok with ambulation. He sleeps on a chair. His lower extremity edema is actually getting better. He follows with wound clinic every couple of weeks and they are wrapping his legs and this seems to help with his edema, and his lower extremity wounds were also almost getting healed. Denies any fever, chills, no cough, no headaches, no dizziness, no blurred vision, no runny nose, no sore throat, , no rash. No nausea, no vomiting, no abdominal pain. Appetite is okay. Normal bowel and bladder movements. No blood in the stools or black stools. No blood in the urine, no burning micturition. Currently, he is resting comfortably and hemodynamically stable. ALLERGIES: No known drug allergies. PAST MEDICAL HISTORY: As mentioned above. PAST SURGICAL HISTORY: Orthopedic surgeries, CABG , Urologic procedures. MEDICATIONS: The patient is on NovoLog mix 70/30, 55 units in a.m. and 45 units in the p.m., lisinopril 20 mg p.o. b.i.d., metoprolol tartrate 25 mg p.o. b.i.d., allopurinol 300 mg p.o. daily, cyclobenzaprine 10 mg p.r.n., Ventolin 2 puffs q. 6 hours p.r.n., Remeron 15 mg p.o. at bedtime, Coumadin currently taking 10 mg p.o. daily, lovastatin, Crestor 10 mg p.o. daily, Lasix 80 mg p.o. b.i.d., gabapentin 100 mg p.o. t.i.d., prednisone 5 mg p.o. daily, omeprazole 20 mg p.o. daily, Klor-Con 20 mEq p.o. b.i.d., amlodipine 5 mg p.o. daily, vitamin D 50,000 units once a month, hydrocodone/acetaminophen 5/325 mg p.o. t.i.d. p.r.n., lactobacillus 1 tablet p.o. b.i.d.,Senokot s 1 tablet p.o. daily, tramadol 50 mg p.o. q. 6 hours p.r.n., Nitrostat 0.4 mg p.r.n. FAMILY HISTORY: Significant for brother at the age of 74 with liver cancer, brother had diabetes. SOCIAL HISTORY: Former smoker, quit in 1960. Alcohol rarely. No drug use. . REVIEW OF SYMPTOMS: As per HPI. Rest of review of symptoms is negative. PHYSICAL EXAMINATION: GENERAL: The patient is obese, not in distress. VITAL SIGNS: Temperature 36.5, pulse 111, respiratory rate 20, blood pressure 155/107, oxygen 95% on 5 liters. HEENT: No pallor, no icterus. Pupils are equal, round, and reactive to light. NECK: No JVD, no neck masses, no carotid bruits. CARDIOVASCULAR: S1, S2 heard. Irregular rhythm. Tachycardia. No murmurs. RESPIRATORY SYSTEM: Normal AP diameter. No accessory muscle use. Mild bibasilar crackles. No wheezing. ABDOMEN: Soft, bowel sounds present. Nontender. No distention. CENTRAL NERVOUS SYSTEM: Cranial nerves II-XII grossly intact. Nonfocal. EXTREMITIES: Bilateral lower extremity edema present, both were wrapped with bandage. LABORATORY DATA: WBC 9, hemoglobin 11.7, hematocrit 36.5, platelets 156. Sodium 138, potassium 4.9, chloride 105, bicarbonate 25, BUN 20, creatinine 1.5, serum glucose 365, calcium 8.9, total bilirubin 0.5, AST 25, ALT 29, alkaline phosphorus 120, creatinine kinase 57, CK-MB 4.8. Troponin 0.9 BNP 7427. PT 13.4, INR 1.2,. IMAGING: Chest x-ray shows pulmonary edema, slightly increased compared to prior exam. EKG shows atrial fibrillation with rapid ventricular response st abnormality in the lateral leads. ASSESSMENT AND PLAN: This is an 81-year-old male who presents with a rapid atrial fibrillation with shortness of breath and hyperglycemia. 1. Rapid atrial fibrillation. We will continue home medication of p.o. Lopressor. We will place him on IV Lopressor p.r.n. INR is sub therapeutic at 1.2. On Coumadin 10mg daily bat home We will give Coumadin 15mg today and check PT/INR in the a.m. and we will place him on low-dose IV heparin. cardiology consulted. 2. Mild elevation of troponin 0.9, most likely secondary to rapid atrial fibrillation. [id number] OR secondary to demand ischemia. The patient does not have any chest pain. f/u Serial CE EKG in the a.m. Cardiology consulted, 4. Shortness of breath, mostly secondary to [id number]-oi-[id number] systolic congestive heart failure. EF 40%. On Lasix 80 mg b.i.d. which we will hold .IV Lasix 40 b.i.d. Continue lisinopril 20 mg b.i.d. We will follow I's and O's, daily weights, and adjust meds. 5. Hyperglycemia. The patient is diabetic. We will continue his NovoLog mix 70/30, 55 units in the a.m. and 45 units in the p.m. The patient received dose of IV insulin 4 units in the ER. We will place him on insulin sliding scale. Closely monitor his blood sugars. f/u hba1c levels. pharmacy consulted 6. History of gout. Continue allopurinol. 7. History of coronary artery disease. Continue his lisinopril and beta leah. The patient is on Coumadin. 8.Obstructive sleep apnea. Continue CPAP at bedtime. Since he is sleeping in the chair, he is not using CPAP at home but ok to use in the hospital. 9. Gastroesophageal reflux disease. Continue PPI. 10. Chronic kidney disease, stage III, baseline creatinine around 1.5. We will follow the labs while on IV Lasix. 11. Hyperlipidemia. Continue Crestor. 12. Hypertension. Continue his lisinopril and metoprolol AND NORVASC Monitor the blood pressure. 13. Lower Extremity Wounds Follows with wound clinic. Wound care consult 13. Deep venous thrombosis prophylaxis. Currently on IV heparin. DISPOSITION: Admit to tele floor. Expect to discharge home and follow up with his family doctor and cardiology, level 1 full code. CARRI
[2016-12-15 06:32] LABS: ESTIMATED AVERAGE GLUCOSE 192 mg/dl; HA1C FLAG Normal (Normal)
[2016-12-15] MEDS ORDERED: HEPARIN IV BOLUS 4,500 UNIT in SYRINGE 0 ML IV ONE ×2 (07:30→14:30)
[2016-12-15] MEDS: HEPARIN 25000 UNIT/ D5W 500 ML (PHARMACY PREPARED) IV PRN ×6 (07:47→20:03)
[2016-12-15] MEDS: DOCUSATE SODIUM/SENNA 50/8.6MG TAB PO SCH (08:06)
[2016-12-15] MEDS: ALLOPURINOL 300 MG TAB PO SCH (08:06)
[2016-12-15] MEDS: METOPROLOL TARTRATE 25 MG TAB PO SCH ×2 (08:06→21:16)
[2016-12-15] MEDS: GABAPENTIN 100 MG CAP PO SCH ×3 (08:06→21:15)
[2016-12-15] MEDS: AMLODIPINE BESYLATE 5 MG TAB PO SCH (08:07)
[2016-12-15] MEDS: LISINOPRIL 20 MG TAB PO SCH ×2 (08:07→21:16)
[2016-12-15] MEDS: PANTOprazole SOD 40 MG TAB PO SCH (08:07)
[2016-12-15] MEDS: LACTOBACILLUS ACIDOPHILUS (FLORANEX) TAB PO SCH ×2 (08:07→21:15)
[2016-12-15] MEDS: POTASSIUM CHLORIDE 20 MEQ TABCR PO SCH ×2 (08:10→21:15)
[2016-12-15] MEDS ORDERED: FUROSEMIDE INJ 40 MG in SYRINGE 0 ML IV SCH (09:00)
[2016-12-15] MEDS ORDERED: INSULIN 70% ASPART PROTAMINE/30% ASPART SC SCH (09:00)
[2016-12-15] MEDS ORDERED: INSULIN GLARGINE SOLOSTAR 100 UNITS/ML 3 ML PEN SC SCH (09:00)
[2016-12-15] MEDS ORDERED: NITROGLYCERIN OINT 2% 1GM PACKET EXT ONE (10:06)
--- NOTE | 2016-12-15 10:47 | CARDIOLOGY CONSULTATION ---
DATE OF CONSULTATION: 12/15/2016 DATE OF CONSULTATION: 12/15/2016 REFERRING: Dr. Grant. PRIMARY CARE PHYSICIAN: Dr. Ryder. INDICATIONS: Acute on chronic congestive heart failure, atrial fibrillation with elevated ventricular response rate. HISTORY OF PRESENT ILLNESS: The patient is a very complex 81-year-old male whose history is notable for: 1. Atherosclerotic coronary artery disease, status post coronary artery bypass grafting x5 in 1994 with severe diffuse coronary disease by last coronary interrogation. 2. 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 3. Chronic atrial fibrillation. 4. Hypertension. 5. Hyperlipidemia. 6. Chronic renal insufficiency with class 3-4 function. 7. Longstanding diabetes mellitus with associated diabetic neuropathy, gastroparesis and labile blood sugars. 8. History of obstructive sleep apnea on CPAP, and prior oxygen supplementation. 9. Decubitus ulcers of the heel. The patient presents now previously been at [facility] and now relocated to home in the recent months. Notes since returning to home has gained 40-50 pounds of weight with increasing lower extremity edema. Notes anticoagulation studies have been subtherapeutic recently and in addition sugars have been as high as 500. He sought additional evaluation through primary care office yesterday, was found to be short of breath, dyspneic and tachycardic in atrial fibrillation rates 120-130. He is referred for hospitalization and management. Chest x-ray was consistent with acute on chronic congestive heart failure with evidence of lower extremity and abdominal edema. He is referred now for further management. The patient feels he has been compliant with medications while at home. He denies fevers, chills, though has been treated through the wound clinic for heel ulcer. Notes no acute chest discomfort. Predominant symptoms have been dyspnea. Notes no sense of tachypalpitations. Denies syncope or near syncope. Notes no bleeding difficulties. He uses a walker and scooter at home with marked limitations in activity tolerance. REVIEW OF SYSTEMS: As per HPI. ALLERGIES: THIOPENTAL. MEDICATIONS: At home were NovoLog insulin 70/30, 55 a.m., 45 p.m., lisinopril 20 mg twice per day, metoprolol tartrate 25 mg twice per day, allopurinol 300 mg p.o. daily, cyclobenzaprine 10 mg p.r.n., Ventolin inhaler q. 6 hours p.r.n., Remeron 15 mg at bedtime, warfarin variable dosing, Crestor 10 mg p.o. daily, Lasix 80 mg twice per day, gabapentin 100 mg t.i.d., prednisone 5 mg p.o. daily, omeprazole 20 grams p.o. daily, Klor-Con 20 grams b.i.d., amlodipine 5 mg p.o. daily, vitamin D 50,000 units monthly, hydrocodone/acetaminophen p.r.n. pain, lactobacillus b.i.d., Senokot daily, tramadol 50 mg q. 6 hours per medical list with the patient feeling he has been compliant with medications. PAST SURGICAL HISTORY: Notable for coronary bypass grafting as described 1995, multiple GI procedures, arthroscopic shoulder surgeries as well as right shoulder replacement. FAMILY HISTORY: Noncontributory. SOCIAL HISTORY: The patient is currently living independently at home. He is a nonsmoker, nondrinker. PHYSICAL EXAMINATION: VITAL SIGNS: Heart rate is currently 90, blood pressure is 143/77, O2 saturations 98% with the patient wearing CPAP. He currently denies discomfort, feels he is breathing easier since CPAP has been administered. He has made no overt diuresis since admission, though overall he feels better. Blood pressures are coming down with initial blood pressure significantly elevated on initial ER presentation. Heart rates are better controlled. HEAD, EYES, EARS, NOSE, AND THROAT: Normocephalic, atraumatic. NECK: Thick. LUNGS: Reveal diminished breath sounds with coarse upper airway sounds. CARDIOVASCULAR: Examination irregular, irregular grade 1/6 systolic murmur. ABDOMEN: Soft, obese with moderate distention. EXTREMITIES: Reveal 2-3+ lower extremity edema. NEUROLOGIC: The patient is alert, answering questions appropriately. DATA: Sodium is 142, potassium is 4.1, chloride is 109, bicarb 27, BUN is 29, creatinine is 1.38. Magnesium is 2.5. CK and MB fractions are generally normal. Troponins have been mildly elevated but are chronically so. BMP on presentation was 7500. INR is 1.2, hemoglobin is 11.6, white cell count 6.9. Chest x-ray reveals diffuse increased interstitial markings consistent with congestive heart failure. IMPRESSION: The patient is an 81-year-old male with complex history of diffuse ischemic heart disease with remote coronary bypass grafting and ischemic cardiomyopathy, chronic class 3 congestive heart failure, presents now with acute on chronic congestive heart failure manifesting with worsening shortness of breath, lower extremity edema, abdominal bloating, elevated atrial fibrillation response rates. The patient feels he has been compliant with medications, though INRs are subtherapeutic. Glucoses have been greater than 500. He has had significant change in functional capacity since returning to home from [facility]. RECOMMENDATIONS: Continue diuresis. We will increase furosemide dosing to 3 times per day. This may ultimately need to be increased further. Will need to follow renal function closely as he has had prior renal deterioration with diuresis. We will add topical nitrates for blood pressure and anti-ischemic affect. Agree with anticoagulation with heparin until INR begins to increase. Ultimate goal is optimization medically and past diagnostic cardiac catheterization has found little to be amenable from interventional or bypass surgery options.
[2016-12-15] MEDS: INSULIN GLARGINE SOLOSTAR 100 UNITS/ML 3 ML PEN SC SCH ×2 (12:43→21:33)
--- NOTE | 2016-12-15 13:02 | ECHOCARDIOGRAM REPORT ---
*NOTICE TO RECEIVING CONSTITUTION PARTY AGENCY This information is strictly Confidential and protected under [place] law. [place] law prohibits you from making any further disclosure of this information unless further disclosure is expressly permitted by the written consent of the person to whom it pertains or is authorized by law. A general authorization for the release of medical or other information is not sufficient for this purpose. Hospital accepts no responsibility if the information is made available to any other person, INCLUDING THE PATIENT. Interpretation Summary * Name: ZAN SANCHEZ Study Date: 12/15/2016 10:57 AM BP: 142/97 mmHg * Patient Location: .2T\S\E222\S\1 HR: 81 * : 1935 (M/d/yyy) Gender: Male Height: 75 in * Age: 81 yrs Ethnicity: [place] Weight: 310 lb * Ordering Physician: Keith Louise * Referring Physician: Self, Referred * Performed By: Irving Saez RCS * * Reason For Study: A-FIB * BSA: 2.6 m2 * -- Conclusions -- * The left ventricle is normal in size. * There is moderate concentric left ventricular hypertrophy. * The inferior and posterior are severely hypokinetic at the base and midlevels as is the anterior apex The remaining left ventricular wall segments are hypokinetic. * Ejection Fraction = 30-35%. * Aortic valve sclerosis moderate, without significant aortic valvular stenosis. * The inferior vena cava is moderately dilated. Procedure Details * A complete two-dimensional transthoracic echocardiogram was performed (2D, M-mode, Doppler and color flow Doppler). * There were technical limitations due to patient'sbody habitus * A contrast injection of Definity was performed to improve assessment of LV function. * Contrast was injected into an intravenous site in the left arm. * One vial of Definity ultrasound contrast was diluted in normal saline to a total volume of 10 ml. A total of '1' ml of solution was administered during imaging. * Lot # [id number] of Definity utilized for procedure. * Expiration date 1DEC18. * The attending nurse who injected the contrast agent was Kenya Luo RN. Left Ventricle * The left ventricle is normal in size. * There is moderate concentric left ventricular hypertrophy. * Ejection Fraction = 30-35%. * The inferior and posterior are severely hypokinetic at the base and midlevels as is the anterior apex The remaining left ventricular wall segments are hypokinetic. Right Ventricle * The right ventricle is normal in size and function. Atria * The left atrium is severely dilated. * The left atrial size is normal. * Right atrial size is normal. * No ASD detected; PFO is not assessed. * Lipomatous hypertrophy of the interatrial septum is noted. Mitral Valve * The mitral valve anatomy is normal. * There is no mitral valve stenosis. * There is trace mitral regurgitation. Tricuspid Valve * The tricuspid valve anatomy is normal. * There is no tricuspid stenosis. * There is mild tricuspid regurgitation. Aortic Valve * The aortic valve is trileaflet. * Aortic valve sclerosis moderate, without significant aortic valvular stenosis. * No hemodynamically significant valvular aortic stenosis. * No aortic regurgitation is present. Pulmonic Valve * The pulmonic valve is not well visualized. Great Vessels * The aortic root is normal size. Pericardium/Pleural * There is no pericardial effusion. Great Vessels * The inferior vena cava is moderately dilated. MMode 2D Measurements and Calculations IVSd 1.2 cm IVSs 1.5 cm LVIDd 5.6 cm LVIDs 4.4 cm LVPWd 1.2 cm LVPWs 1.7 cm IVS/LVPW 0.96 FS 21.3 % EDV(Teich) 152.1 ml ESV(Teich) 87.1 ml EF(Teich) 42.7 % EDV(cubed) 173.3 ml ESV(cubed) 84.5 ml EF(cubed) 51.3 % % IVS thick 24.4 % % LVPW thick 37.1 % LV mass(C)d 281.5 grams LV mass(C)dI 106.5 grams/m\S\2 LV mass(C)s 288.9 grams LV mass(C)sI 109.3 grams/m\S\2 SV(Teich) 65.0 ml SI(Teich) 24.6 ml/m\S\2 SV(cubed) 88.8 ml SI(cubed) 33.6 ml/m\S\2 Ao root diam 3.7 cm Ao root area 11.0 cm\S\2 ACS 1.5 cm LA dimension 6.2 cm asc Aorta Diam 3.7 cm LA/Ao 1.7 LVAd ap4 47.4 cm\S\2 LVLd ap4 9.6 cm EDV(MOD-sp4) 194.5 ml EDV(sp4-el) 199.0 ml LVAs ap4 36.3 cm\S\2 LVLs ap4 8.7 cm ESV(MOD-sp4) 124.2 ml ESV(sp4-el) 128.0 ml EF(MOD-sp4) 36.2 % EF(sp4-el) 35.7 % LVAd ap2 52.9 cm\S\2 LVLd ap2 10.4 cm EDV(MOD-sp2) 225.0 ml EDV(sp2-el) 228.2 ml LVAs ap2 41.3 cm\S\2 LVLs ap2 9.4 cm ESV(MOD-sp2) 147.8 ml ESV(sp2-el) 153.9 ml EF(MOD-sp2) 34.3 % EF(sp2-el) 32.6 % LVLd %diff 7.8 % EDV(MOD-bp) 215.0 ml LVLs %diff 7.3 % ESV(MOD-bp) 140.9 ml EF(MOD-bp) 34.5 % SV(MOD-sp4) 70.3 ml SI(MOD-sp4) 26.6 ml/m\S\2 SV(MOD-sp2) 77.2 ml SI(MOD-sp2) 29.2 ml/m\S\2 SV(MOD-bp) 74.1 ml SI(MOD-bp) 28.0 ml/m\S\2 SV(sp4-el) 71.0 ml SI(sp4-el) 26.9 ml/m\S\2 SV(sp2-el) 74.3 ml SI(sp2-el) 28.1 ml/m\S\2 Doppler Measurements and Calculations MV E max carrie 127.5 cm/sec MV A max carrie 46.9 cm/sec MV E/A 2.7 MV P1/2t max carrie 137.5 cm/sec MV P1/2t 96.0 msec MVA(P1/2t) 2.3 cm\S\2 MV dec slope 419.3 cm/sec\S\2 MV dec time 0.20 sec Ao V2 max 138.0 cm/sec Ao max PG 7.7 mmHg Ao max PG (full) 4.6 mmHg LV V1 max PG 3.2 mmHg LV V1 max 88.4 cm/sec PA V2 max 84.7 cm/sec PA max PG 2.9 mmHg PI max carrie 157.9 cm/sec PI max PG 10.0 mmHg PI dec slope 196.8 cm/sec\S\2 PI P1/2t 235.1 msec TR max carrie 276.6 cm/sec
[2016-12-15 13:10] LABS: CKMB/CK RATIO 7.5 (0-3.0)
[2016-12-15] MEDS: FUROSEMIDE INJ 40 MG in SYRINGE 0 ML IV SCH ×2 (13:55→21:16)
--- NOTE | 2016-12-15 13:58 | Progress Note ---
Internal Med Progress Note Date of Service: Dec 15, 2016. Provider Documentation: SUBJECTIVE: The patient was seen and examined Admitted with SOB and more than 20lbs weight gain in a short to=luzmaria Denies any chest pain OBJECTIVE: Vital Signs-as noted below Exam: General-Minimal distress at rest Eyes-normal ENT-normal Neck-supple Lungs-decreased breath sound bilaterally Crackles at the bases Heart-Regular Abdomen-Benign,distended ,soft ,bowel sound present Extremities-Legs are bandaged Neuro-AAOx3 NO focal neuro deficit Lab data as noted below. ASSESSMENT & PLAN: This is an 81-year-old male who presents with a rapid atrial fibrillation with shortness of breath and hyperglycemia. Rapid atrial fibrillation. Causing SOB INR is sub therapeutic at 1.2. Started on IV Heparin and Coumadin continued Appreciate Cardiology input Elevated Troponin is secondary-doubt any ACS Acute on Chronic Systolic Heart Failure Shortness of breath EF 40%. Started on IV Lasix 40 mg TID Continue lisinopril 20 mg Restrict Oral Fluid Monitor I&O Hyperglycemia. The patient is diabetic. Will continue his Insulin Pharmacy consult and SSI History of gout. Continue allopurinol. History of coronary artery disease. Continue his lisinopril and beta leah. The patient is on Coumadin. Obstructive sleep apnea. Continue CPAP at bedtime. Since he is sleeping in the chair, he is not using CPAP at home but ok to use in the hospital. Gastroesophageal reflux disease. Continue PPI. Chronic kidney disease, stage III, baseline creatinine around 1.5. Follow the labs while on IV Lasix. Hyperlipidemia. Continue Crestor. Hypertension. Continue his lisinopril and metoprolol AND NORVASC Monitor the blood pressure. Lower Extremity Wounds Follows with wound clinic. Wound care consult Deep venous thrombosis prophylaxis. Currently on IV heparin. Vital Signs: Date Time Temp Pulse Resp B/P (MAP) Pulse Ox O2 Delivery O2 Flow Rate FiO2 12/15/16 12:00 CPAP 4.0 12/15/16 11:08 36.7 91 18 128/78 (95) 94 CPAP 12/15/16 08:18 36.4 92 18 143/77 (99) 98 CPAP 12/15/16 08:04 122 168/119 12/15/16 08:00 CPAP 4.0 12/15/16 04:00 CPAP 4.0 12/15/16 03:54 36.4 81 18 142/97 (112) 96 CPAP 4.0 12/15/16 00:30 CPAP 4.0 12/15/16 00:01 36.8 87 18 142/92 (109) 96 CPAP 4.0 12/14/16 22:05 119 95 12/14/16 20:53 90 18 147/94 94 12/14/16 19:53 Nasal Cannula 12/14/16 17:37 95 Nasal Cannula 5.0 12/14/16 17:37 95 Nasal Cannula 5.0 12/14/16 17:37 Nasal Cannula 5.0 12/14/16 17:37 36.5 111 20 155/107 97 Nasal Cannula 5.0 12/14/16 17:29 106 Lab Results: Results Past 24 Hours Test 12/14/16 18:10 12/14/16 19:00 12/14/16 22:15 12/15/16 00:15 Range/Units White Blood Count 9.03 4.8-10.8 K/uL Red Blood Count 3.88 4.7-6.1 M/uL Hemoglobin 11.7 14.0-18.0 g/dL Hematocrit 36.5 42-52 % Mean Corpuscular Volume 94.1 80-100 fL Mean Corpuscular Hemoglobin 30.2 25-34 pg Mean Corpuscular Hemoglobin Concent 32.1 32-36 g/dl Platelet Count 156 130-400 K/uL Mean Platelet Volume 9.5 7.4-10.4 fL Neutrophils (%) (Auto) 80.6 % Lymphocytes (%) (Auto) 8.9 % Monocytes (%) (Auto) 7.5 % Eosinophils (%) (Auto) 2.5 % Basophils (%) (Auto) 0.2 % Neutrophils # (Auto) 7.27 1.4-6.5 K/uL Lymphocytes # (Auto) 0.80 1.2-3.4 K/uL Monocytes # (Auto) 0.68 0.11-0.59 K/uL Eosinophils # (Auto) 0.23 0-0.5 K/uL Basophils # (Auto) 0.02 0-0.2 K/uL RDW Standard Deviation 56.3 36.4-46.3 fL RDW Coefficient of Variation 16.4 11.5-14.5 % Immature Granulocyte % (Auto) 0.3 % Immature Granulocyte # (Auto) 0.03 0.00-0.02 K/uL Prothrombin Time 13.4 9.0-12.0 SECONDS Prothromb Time International Ratio 1.2 0.9-1.1 Activated Partial Thromboplast Time 30.6 21.0-31.0 SECONDS Partial Thromboplastin Ratio 1.2 Venous Blood pH 7.37 7.36-7.41 Venous Blood Partial Pressure CO2 46 38.0-50.0 mmHg Venous Blood Partial Pressure O2 38 mmHg Venous Blood HCO3 26 mmol/L Venous Blood Oxygen Saturation 67.0 % Venous Blood Base Excess 0.8 mEq/L Sodium Level 138 136-145 mmol/L Potassium Level 4.9 3.5-5.1 mmol/L Chloride Level 105 98-107 mmol/L Carbon Dioxide Level 25 21-32 mmol/L Anion Gap 8.0 3-11 mmol/L Blood Urea Nitrogen 28 7-18 mg/dl Creatinine 1.54 0.60-1.40 mg/dl Est Creatinine Clear Calc Drug Dose 56.9 ml/min Estimated GFR () 48.3 Estimated GFR (Non- 41.7 BUN/Creatinine Ratio 18.2 10-20 Random Glucose 365 70-99 mg/dl Calcium Level 8.9 8.5-10.1 mg/dl Total Bilirubin 0.5 0.2-1 mg/dl Aspartate Amino Transf (AST/SGOT) 25 15-37 U/L Alanine Aminotransferase (ALT/SGPT) 29 12-78 U/L Alkaline Phosphatase 120 45-117 U/L Total Creatine Kinase 57 39-308 U/L Creatine Kinase MB 4.8 0.5-3.6 ng/ml Creatine Kinase MB Ratio 8.4 0-3.0 Troponin I 0.909 0-0.045 ng/ml Pro-B-Type Natriuretic Peptide 7427 0-1800 pg/ml Total Protein 7.2 6.4-8.2 gm/dl Albumin 3.2 3.4-5.0 gm/dl Globulin 4.0 2.5-4.0 gm/dl Albumin/Globulin Ratio 0.8 0.9-2 Beta-Hydroxybutyric Acid 1.59 0.2-2.81 mg/dL Urine Color YELLOW Urine Appearance CLEAR CLEAR Urine pH 5.5 4.5-7.5 Urine Specific [place] 1.022 1.000-1.030 Urine Protein 1+ NEG Urine Glucose (UA) 3+ NEG Urine Ketones NEG NEG Urine Occult Blood NEG NEG Urine Nitrite NEG NEG Urine Bilirubin NEG NEG Urine Urobilinogen NEG NEG Urine Leukocyte Esterase NEG NEG Urine WBC (Auto) 1-5 0-5 /hpf Urine RBC (Auto) 0-4 0-4 /hpf Urine Hyaline Casts (Auto) 1-5 0-5 /lpf Urine Epithelial Cells (Auto) >30 0-5 /lpf Urine Bacteria (Auto) NEG NEG Bedside Glucose 285 235 70-99 mg/dl Test 12/15/16 03:45 12/15/16 03:57 12/15/16 07:03 12/15/16 11:21 Range/Units Bedside Glucose 132 96 174 70-99 mg/dl White Blood Count 6.96 4.8-10.8 K/uL Red Blood Count 3.90 4.7-6.1 M/uL Hemoglobin 11.6 14.0-18.0 g/dL Hematocrit 37.1 42-52 % Mean Corpuscular Volume 95.1 80-100 fL Mean Corpuscular Hemoglobin 29.7 25-34 pg Mean Corpuscular Hemoglobin Concent 31.3 32-36 g/dl Platelet Count 167 130-400 K/uL Mean Platelet Volume 9.6 7.4-10.4 fL Neutrophils (%) (Auto) 70.6 % Lymphocytes (%) (Auto) 14.9 % Monocytes (%) (Auto) 8.6 % Eosinophils (%) (Auto) 5.2 % Basophils (%) (Auto) 0.4 % Neutrophils # (Auto) 4.91 1.4-6.5 K/uL Lymphocytes # (Auto) 1.04 1.2-3.4 K/uL Monocytes # (Auto) 0.60 0.11-0.59 K/uL Eosinophils # (Auto) 0.36 0-0.5 K/uL Basophils # (Auto) 0.03 0-0.2 K/uL RDW Standard Deviation 56.6 36.4-46.3 fL RDW Coefficient of Variation 16.3 11.5-14.5 % Immature Granulocyte % (Auto) 0.3 % Immature Granulocyte # (Auto) 0.02 0.00-0.02 K/uL Prothrombin Time 13.4 9.0-12.0 SECONDS Prothromb Time International Ratio 1.2 0.9-1.1 Activated Partial Thromboplast Time 34.5 21.0-31.0 SECONDS Partial Thromboplastin Ratio 1.3 Sodium Level 142 136-145 mmol/L Potassium Level 4.1 3.5-5.1 mmol/L Chloride Level 109 98-107 mmol/L Carbon Dioxide Level 27 21-32 mmol/L Anion Gap 6.0 3-11 mmol/L Blood Urea Nitrogen 29 7-18 mg/dl Creatinine 1.38 0.60-1.40 mg/dl Est Creatinine Clear Calc Drug Dose 63.5 ml/min Estimated GFR () 55.2 Estimated GFR (Non- 47.6 BUN/Creatinine Ratio 21.2 10-20 Random Glucose 128 70-99 mg/dl Estimated Average Glucose 192 mg/dl Hemoglobin A1c 8.3 4.5-5.6 % Calcium Level 8.8 8.5-10.1 mg/dl Magnesium Level 2.5 1.8-2.4 mg/dl Total Creatine Kinase 43 39-308 U/L Creatine Kinase MB 3.8 0.5-3.6 ng/ml Creatine Kinase MB Ratio 8.8 0-3.0 Troponin I 1.150 0-0.045 ng/ml Test 12/15/16 12:12 12/15/16 13:45 Range/Units Total Creatine Kinase 40 39-308 U/L Creatine Kinase MB 3.0 0.5-3.6 ng/ml Creatine Kinase MB Ratio 7.5 0-3.0 Troponin I 0.746 0-0.045 ng/ml
[2016-12-15 14:02] LABS: PARTIAL THROMBOPLASTIN RATIO 1.5
--- NOTE | 2016-12-15 15:16 | Pharmacy Progress Note ---
Glycemic Control Intl Consult Date of Service Dec 15, 2016. Scope Glycemic Pharmacist consulted by Dr Louise on 12/14/16 for glycemic control and to write orders per [facility] inpatient glycemic control protocol Objective Weight (Kilograms): 138.100 Accuchecks BSG (last 24hrs): Test 12/14/16 18:10 12/14/16 22:15 12/15/16 00:15 12/15/16 03:45 Random Glucose 365 mg/dl (70-99) Bedside Glucose 285 mg/dl (70-99) 235 mg/dl (70-99) 132 mg/dl (70-99) Test 12/15/16 03:57 12/15/16 07:03 12/15/16 11:21 Random Glucose 128 mg/dl (70-99) Bedside Glucose 96 mg/dl (70-99) 174 mg/dl (70-99) Laboratory Data (last 24hrs) Test 12/14/16 18:10 12/15/16 03:57 Anion Gap 8.0 mmol/L 6.0 mmol/L BUN/Creatinine Ratio 18.2 21.2 Blood Urea Nitrogen 28 mg/dl 29 mg/dl Creatinine 1.54 mg/dl 1.38 mg/dl Potassium Level 4.9 mmol/L 4.1 mmol/L Sodium Level 138 mmol/L 142 mmol/L White Blood Count 9.03 K/uL 6.96 K/uL Red Blood Count 3.88 M/uL 3.90 M/uL Hemoglobin 11.7 g/dL 11.6 g/dL Hematocrit 36.5 % 37.1 % Mean Corpuscular Volume 94.1 fL 95.1 fL Mean Corpuscular Hemoglobin 30.2 pg 29.7 pg Mean Corpuscular Hemoglobin Concent 32.1 g/dl 31.3 g/dl Platelet Count 156 K/uL 167 K/uL Mean Platelet Volume 9.5 fL 9.6 fL Neutrophils (%) (Auto) 80.6 % 70.6 % Lymphocytes (%) (Auto) 8.9 % 14.9 % Monocytes (%) (Auto) 7.5 % 8.6 % Eosinophils (%) (Auto) 2.5 % 5.2 % Basophils (%) (Auto) 0.2 % 0.4 % Neutrophils # (Auto) 7.27 K/uL 4.91 K/uL Lymphocytes # (Auto) 0.80 K/uL 1.04 K/uL Monocytes # (Auto) 0.68 K/uL 0.60 K/uL Eosinophils # (Auto) 0.23 K/uL 0.36 K/uL Basophils # (Auto) 0.02 K/uL 0.03 K/uL Hemoglobin A1c 8.3 % HbA1c Test 12/15/16 03:57 Hemoglobin A1c 8.3 % (4.5-5.6) H Recent Pertinent Medications Outpatient Anti-diabetic Regimen: * Novolog 70/30 - 55 units qAM and 45 units qPM The patient is currently receiving: * Basal insulin: Lantus 50 units x 1 yesterday evening * Correctional Insulin: Novolog Correction per scale ACHS Goal Range: Low 110 mg/dL - High 140 mg/dL Correction Factor: 10 mg/dL/unit * Prandial insulin: Per carb ratio of 1 unit per 4 grams CHO consumed Risk Factors for Insulin Resistance: * Steroids: prednisone 5 mg PO daily (home dose) * Diet: type 2 diet Assessment & Plan ASSESSMENT: * ADA & AACE recommend a goal blood sugar range 140-180 mg/dl for the majority of critically ill & non-critically ill patients. However, more stringent targets may be selected in individual cases. Will utilize more stringent goal of 110-140 mg/dl based on patient age & comorbidities. Additionally, tighter glycemic control is warranted to help with cardiac health. * Mr Macedo is an 81 y/o M who presents with hyperglycemia and in rapid atrial fibrillation. He is well-known to the glycemic service. Last year, the patient required around ~100 units of insulin per day but the previous admissions he has required just around 50 units per day. Based upon the progression of the patient's blood sugars over last night (285 mg/dL -- 132 mg/dL --> 96 mg/dL --> 174 mg/dL) I suspect that the patient will require ~100 units/day. Mimicked previous admission with this TDD and weight based stress of 2 dosing for Lantus and Novolog. Patient appears to have increased insulin requirements . PLAN FOR INPATIENT GLYCEMIC CONTROL: * Basal insulin with LANTUS 25 units SQ BID * Correctional Insulin with NOVOLOG / REGULAR per scale ACHS or Q6hrs while NPO * Goal Range: Low 110 mg/dL - High 140 mg/dL * Correction Factor: 15 mg/dL/unit * Nutritional / Prandial insulin per carb ratio of 1 unit per 5 grams CHO consumed * Please note that the plan above was derived based on current level of insulin resistance and hospital stress. These recommendations are appropriate for inpatient admission only. Plan of care upon discharge will need to be reassessed to avoid potential outpatient hypo/hyperglycemia. Thank you.
[2016-12-15] MEDS: WARFARIN SOD 10 MG TAB PO SCH (16:18)
[2016-12-15] MEDS: NITROGLYCERIN OINT 2% 1GM PACKET EXT SCH ×2 (16:19→21:15)
[2016-12-15] MEDS: MIRTAZAPINE TAB 15 MG TAB PO SCH (21:15)
[2016-12-15] MEDS: ROSUVASTATIN CALCIUM 10 MG TAB PO SCH (21:16)
[2016-12-16] VITALS (7 sets, daily range): BP systolic 113–154; BP diastolic 60–83; PULSE 72–141; TEMP 36.3–36.9; O2SAT 92–98
[2016-12-16] MEDS ORDERED: INSULIN ASPART 100 UNITS/ML 3 ML PEN SC SCH (02:00)
[2016-12-16] MEDS: NITROGLYCERIN OINT 2% 1GM PACKET EXT SCH ×4 (05:19→21:08)
[2016-12-16 05:39] LABS: BASO % 0.2 %; BASO ABS # 0.02 K/uL (0-0.2); COMPLETE YES; EOS % 4.2 %; HEMATOCRIT 34.8 % (42-52); IG% 0.2 %; LYMPH % 13.8 %; LYMPH ABS # 1.19 K/uL (1.2-3.4); MEAN CELL VOLUME 93.8 fL (80-100); MEAN CORPUSCULAR HEMOGLOBIN 30.2 pg (25-34); MEAN CORPUSCULAR HGB CONC 32.2 g/dl (32-36); MEAN PLATELET VOLUME 9.4 fL (7.4-10.4); MONO % 7.4 %; NEUT % 74.2 %; PLATELET COUNT 175 K/uL (130-400); RED BLOOD COUNT 3.71 M/uL (4.7-6.1); WHITE BLOOD COUNT 8.64 K/uL (4.8-10.8)
[2016-12-16 05:49] LABS: INR 1.4 (0.9-1.1); PARTIAL THROMBOPLASTIN RATIO 1.6; PROTHROMBIN TIME (PATIENT) 15.2 SECONDS (9.0-12.0)
[2016-12-16 06:06] LABS: BUN/CREATININE RATIO 20.8 (10-20); CALCIUM 8.6 mg/dl (8.5-10.1); CREATININE 1.49 mg/dl (0.60-1.40); MAGNESIUM 2.1 mg/dl (1.8-2.4); POTASSIUM 3.7 mmol/L (3.5-5.1)
[2016-12-16] MEDS ORDERED: HEPARIN IV BOLUS 4,000 UNIT in SYRINGE 0 ML IV ONE (06:45)
[2016-12-16] MEDS: INSULIN ASPART 100 UNITS/ML 3 ML PEN SC SCH ×4 (08:04→21:14)
[2016-12-16] MEDS: INSULIN GLARGINE SOLOSTAR 100 UNITS/ML 3 ML PEN SC SCH ×2 (08:04→21:14)
[2016-12-16] MEDS: GABAPENTIN 100 MG CAP PO SCH ×3 (08:05→21:11)
[2016-12-16] MEDS: FUROSEMIDE INJ 40 MG in SYRINGE 0 ML IV SCH (08:05)
[2016-12-16] MEDS: LACTOBACILLUS ACIDOPHILUS (FLORANEX) TAB PO SCH ×2 (08:05→21:11)
[2016-12-16] MEDS: POTASSIUM CHLORIDE 20 MEQ TABCR PO SCH ×2 (08:06→21:11)
[2016-12-16] MEDS: ALLOPURINOL 300 MG TAB PO SCH (08:06)
[2016-12-16] MEDS: LISINOPRIL 20 MG TAB PO SCH ×2 (08:06→21:11)
[2016-12-16] MEDS: DOCUSATE SODIUM/SENNA 50/8.6MG TAB PO SCH (08:06)
[2016-12-16] MEDS: AMLODIPINE BESYLATE 5 MG TAB PO SCH (08:06)
[2016-12-16] MEDS: PANTOprazole SOD 40 MG TAB PO SCH (08:06)
[2016-12-16] MEDS: METOPROLOL TARTRATE 25 MG TAB PO SCH (08:06)
[2016-12-16] MEDS ORDERED: METOPROLOL SUCC 25MG EXT REL TAB PO ONE (10:00)
--- NOTE | 2016-12-16 11:20 | CARDIOLOGY PROGRESS NOTE ---
DATE: 12/16/2016 CARDIOLOGY CONSULTATION FOLLOWUP NOTE The patient seen and examined. Chart, medications, telemetry reviewed. SUBJECTIVE: The patient feels substantially improved this morning and did use CPAP overnight, but is currently off BiPAP. Blood pressures have improved. Heart rates still trending somewhat higher. Weight is down 3-4 kilograms. Notes no chest pains. Notes no tachypalpitations. Notes no syncope or near syncope. Does become breathless with minimal exertion. OBJECTIVE: VITAL SIGNS: Heart rate is 90, blood pressure is 144/60. Telemetry reveals atrial fibrillation with intermittently elevated ventricular response rates when ambulatory. HEENT: Normocephalic and atraumatic. There is no jugular venous distention. NECK: There are no carotid bruits. LUNGS: Notable for improved aeration, few scattered crackles basilar. CARDIOVASCULAR: Irregularly, irregular. There is no S3 gallop. ABDOMEN: Soft, less distended. There is no hepatojugular reflux. EXTREMITIES: Without cyanosis or clubbing. There is diminished lower extremity edema. NEUROLOGIC: The patient is answering questions appropriately. LABORATORY DATA: White cell count is 8.6, hemoglobin is 11.2. Sodium is 140, potassium is 3.7, chloride is 105, bicarbonate is 27, BUN 31, creatinine is 1.4. IMPRESSION: 1. [id number] decompensated congestive heart failure. 2. Ischemic cardiomyopathy. 3. Atrial fibrillation with poor ventricular response control. 4. Chronic renal insufficiency. 5. Longstanding diabetes mellitus. RECOMMENDATIONS: We will increase therapies for rate control. The patient previously had been on higher doses of beta leah with carvedilol 37.5 in a.m. and 25 in p.m. We will switch to Toprol for congestive heart failure, appropriate beta leah and begin at 50 mg twice per day dosing for rate control. In the past, he has used low-dose digoxin for rate control. This may also be considered during this admission. Depending on renal function, we will reduce diuretic back to 40 mg twice per day, IV furosemide. He has continued to manifest diuresis, but renal function did not make any decline. He is appropriately anticoagulated with IV heparin until warfarin becomes therapeutic once again. We will continue to follow up patient's hospitalist.
[2016-12-16] MEDS: HEPARIN 25000 UNIT/ D5W 500 ML (PHARMACY PREPARED) IV PRN ×2 (13:46)
--- NOTE | 2016-12-16 14:13 | Pharmacy Progress Note ---
Glycemic Control Progress Note Date of Service Dec 16, 2016. Scope Glycemic Pharmacist consulted for glycemic control to write orders per [facility] inpatient glycemic control protocol. Objective Accuchecks BSG (last 24hrs): Test 12/15/16 15:57 12/15/16 19:59 12/16/16 01:53 12/16/16 05:14 Bedside Glucose 199 mg/dl (70-99) 109 mg/dl (70-99) 101 mg/dl (70-99) Random Glucose 98 mg/dl (70-99) Test 12/16/16 06:45 12/16/16 11:29 Bedside Glucose 95 mg/dl (70-99) 124 mg/dl (70-99) HbA1c: Test 12/15/16 03:57 Hemoglobin A1c 8.3 % (4.5-5.6) H Recent Pertinent Medications Outpatient Anti-diabetic Regimen: * Novolog 70/30 - 55 units qAM and 45 units qPM The patient is currently receiving: * Basal insulin: Lantus 25 units SQ BID * Correctional Insulin: Novolog Correction per scale ACHS Goal Range: Low 110 mg/dL - High 140 mg/dL Correction Factor: 15 mg/dL/unit * Prandial insulin: Per carb ratio of 1 unit per 5 grams CHO consumed Risk Factors for Insulin Resistance: * Steroids: prednisone 5 mg PO daily (home dose) * IVFs: heparin infusion at 30 cc/hr * Diet: type 2 diet Outpatient Anti-Diabetic Meds see above Assessment & Plan ASSESSMENT: * ADA & AACE recommend a goal blood sugar range 140-180 mg/dl for the majority of critically ill & non-critically ill patients. However, more stringent targets may be selected in individual cases. Will utilize more stringent goal of 110-140 mg/dl based on patient age & comorbidities. Additionally, tighter glycemic control is warranted to help with cardiac health. * Mr Macedo is an 81 y/o M who presents with hyperglycemia and in rapid atrial fibrillation. He is well-known to the glycemic service. Last year, the patient required around ~100 units of insulin per day but the previous admissions he has required just around 50 units per day. Based upon the progression of the patient's blood sugars over two nights ago (285 mg/dL -- 132 mg/dL --> 96 mg/dL --> 174 mg/dL) I suspect that the patient will require ~100 units/day. Mimicked previous admission with this TDD and weight based stress of 2 dosing for Lantus and Novolog. * Patient's fasting blood sugar was 95 mg/dL which is slightly below the goal range for the patient. Decrease Lantus slightly to 23 units twice daily (~10% reduction). Once Lantus was given yesterday, the patient's blood sugar responded well. Continue same Novolog parameters currently. * Estimate that the total daily dose is around 80-90 units/day....adjusted appropriately. PLAN FOR INPATIENT GLYCEMIC CONTROL: * DECREASE Basal insulin with LANTUS 23 units SQ BID * Correctional Insulin with NOVOLOG / REGULAR per scale ACHS or Q6hrs while NPO * Goal Range: Low 110 mg/dL - High 140 mg/dL * Correction Factor: 15 mg/dL/unit * Nutritional / Prandial insulin per carb ratio of 1 unit per 5 grams CHO consumed OUTPATIENT RECOMMENDATIONS * Patient's HbA1C has improved slightly from earlier this year. Recommend titrating Novolog 70/30 to goal blood sugars or utilizing Lantus- Novolog as an outpatient to achieve more appropriate glycemic control. Thank you.
[2016-12-16] MEDS: WARFARIN SOD 10 MG TAB PO SCH (16:19)
[2016-12-16] MEDS ORDERED: FUROSEMIDE INJ 40 MG in SYRINGE 0 ML IV SCH (17:00)
--- NOTE | 2016-12-16 17:34 | Progress Note ---
Internal Med Progress Note Date of Service: Dec 16, 2016. Provider Documentation: SUBJECTIVE: The patient was seen and examined Admitted with SOB and more than 20lbs weight gain in a short to=luzmaria Denies any chest pain Much better today 12/16 OBJECTIVE: Vital Signs-as noted below Exam: General-Minimal distress at rest Eyes-normal ENT-normal Neck-supple Lungs-decreased breath sound bilaterally Crackles at the bases Heart-Regular Abdomen-Benign,distended ,soft ,bowel sound present Extremities-Legs are bandaged Neuro-AAOx3 NO focal neuro deficit Lab data as noted below. ASSESSMENT & PLAN: This is an 81-year-old male who presents with a rapid atrial fibrillation with shortness of breath and hyperglycemia. Rapid atrial fibrillation. Causing SOB INR is sub therapeutic at 1.2. Started on IV Heparin and Coumadin continued Appreciate Cardiology input Elevated Troponin is secondary-doubt any ACS Rate is towards control BB has been adjusted Acute on Chronic Systolic Heart Failure Shortness of breath EF 40%. Started on IV Lasix 40 mg TID Continue lisinopril 20 mg Restrict Oral Fluid Monitor I&O Lasix has been cg=hanged to BID Monitor PRP Hyperglycemia. The patient is diabetic. Will continue his Insulin Pharmacy consult and SSI Blood sugar is controlled History of gout. Continue allopurinol. History of coronary artery disease. Continue his lisinopril and beta leah. The patient is on Coumadin. INR not yet therapeutic Obstructive sleep apnea. Continue CPAP at bedtime. Since he is sleeping in the chair, he is not using CPAP at home but ok to use in the hospital. Gastroesophageal reflux disease. Continue PPI. Chronic kidney disease, stage III, baseline creatinine around 1.5. Follow the labs while on IV Lasix. Hyperlipidemia. Continue Crestor. Hypertension. Continue his lisinopril and metoprolol AND NORVASC Monitor the blood pressure. Lower Extremity Wounds Follows with wound clinic. Wound care consult Deep venous thrombosis prophylaxis. Currently on IV heparin. Continue Coumadin Vital Signs: Date Time Temp Pulse Resp B/P (MAP) Pulse Ox O2 Delivery O2 Flow Rate FiO2 12/16/16 16:00 Nasal Cannula 4.0 12/16/16 15:27 36.8 141 20 146/82 (103) 94 Nasal Cannula 4.0 12/16/16 12:00 Nasal Cannula 4.0 12/16/16 11:29 36.9 83 20 154/83 (106) 98 12/16/16 08:00 144/60 (88) 12/16/16 08:00 Nasal Cannula 3.0 12/16/16 07:41 36.8 80 20 96 Nasal Cannula 4.0 12/16/16 04:00 CPAP 4.0 12/16/16 03:15 36.3 82 18 130/81 (97) 92 CPAP 12/16/16 00:00 CPAP 4.0 12/15/16 23:30 36.3 80 20 121/76 (91) 93 CPAP 12/15/16 22:32 114 95 12/15/16 20:00 Nasal Cannula 2.0 12/15/16 18:54 36.7 84 22 125/93 (104) 97 2.0 Lab Results: Results Past 24 Hours Test 12/15/16 19:59 12/15/16 20:40 12/16/16 01:53 12/16/16 05:14 Range/Units Bedside Glucose 109 101 70-99 mg/dl Activated Partial Thromboplast Time 50.8 42.7 21.0-31.0 SECONDS Partial Thromboplastin Ratio 2.0 1.6 White Blood Count 8.64 4.8-10.8 K/uL Red Blood Count 3.71 4.7-6.1 M/uL Hemoglobin 11.2 14.0-18.0 g/dL Hematocrit 34.8 42-52 % Mean Corpuscular Volume 93.8 80-100 fL Mean Corpuscular Hemoglobin 30.2 25-34 pg Mean Corpuscular Hemoglobin Concent 32.2 32-36 g/dl Platelet Count 175 130-400 K/uL Mean Platelet Volume 9.4 7.4-10.4 fL Neutrophils (%) (Auto) 74.2 % Lymphocytes (%) (Auto) 13.8 % Monocytes (%) (Auto) 7.4 % Eosinophils (%) (Auto) 4.2 % Basophils (%) (Auto) 0.2 % Neutrophils # (Auto) 6.41 1.4-6.5 K/uL Lymphocytes # (Auto) 1.19 1.2-3.4 K/uL Monocytes # (Auto) 0.64 0.11-0.59 K/uL Eosinophils # (Auto) 0.36 0-0.5 K/uL Basophils # (Auto) 0.02 0-0.2 K/uL RDW Standard Deviation 56.0 36.4-46.3 fL RDW Coefficient of Variation 16.4 11.5-14.5 % Immature Granulocyte % (Auto) 0.2 % Immature Granulocyte # (Auto) 0.02 0.00-0.02 K/uL Prothrombin Time 15.2 9.0-12.0 SECONDS Prothromb Time International Ratio 1.4 0.9-1.1 Sodium Level 140 136-145 mmol/L Potassium Level 3.7 3.5-5.1 mmol/L Chloride Level 105 98-107 mmol/L Carbon Dioxide Level 27 21-32 mmol/L Anion Gap 8.0 3-11 mmol/L Blood Urea Nitrogen 31 7-18 mg/dl Creatinine 1.49 0.60-1.40 mg/dl Est Creatinine Clear Calc Drug Dose 57.9 ml/min Estimated GFR () 50.3 Estimated GFR (Non- 43.4 BUN/Creatinine Ratio 20.8 10-20 Random Glucose 98 70-99 mg/dl Calcium Level 8.6 8.5-10.1 mg/dl Magnesium Level 2.1 1.8-2.4 mg/dl Test 12/16/16 06:45 12/16/16 11:29 12/16/16 13:05 12/16/16 16:28 Range/Units Bedside Glucose 95 124 101 70-99 mg/dl Activated Partial Thromboplast Time 52.6 21.0-31.0 SECONDS Partial Thromboplastin Ratio 2.0
[2016-12-16] MEDS: ROSUVASTATIN CALCIUM 10 MG TAB PO SCH (21:11)
[2016-12-16] MEDS: METOPROLOL SUCC 50MG EXT REL TAB PO SCH (21:11)
[2016-12-16] MEDS: MIRTAZAPINE TAB 15 MG TAB PO SCH (21:12)
[2016-12-17] VITALS (8 sets, daily range): BP systolic 111–127; BP diastolic 66–84; PULSE 65–88; TEMP 36.4–37.7; O2SAT 91–99
[2016-12-17 04:51] LABS: BASO % 0.4 %; BASO ABS # 0.03 K/uL (0-0.2); COMPLETE YES; EOS % 5.2 %; HEMATOCRIT 34.5 % (42-52); IG% 0.3 %; LYMPH % 14.7 %; LYMPH ABS # 1.04 K/uL (1.2-3.4); MEAN CELL VOLUME 94.3 fL (80-100); MEAN CORPUSCULAR HEMOGLOBIN 29.5 pg (25-34); MEAN CORPUSCULAR HGB CONC 31.3 g/dl (32-36); MEAN PLATELET VOLUME 9.6 fL (7.4-10.4); MONO % 9.8 %; NEUT % 69.6 %; PLATELET COUNT 166 K/uL (130-400); RED BLOOD COUNT 3.66 M/uL (4.7-6.1); WHITE BLOOD COUNT 7.06 K/uL (4.8-10.8)
[2016-12-17 05:08] LABS: BUN/CREATININE RATIO 18.9 (10-20); CALCIUM 8.4 mg/dl (8.5-10.1); CREATININE 1.59 mg/dl (0.60-1.40); MAGNESIUM 2.3 mg/dl (1.8-2.4); POTASSIUM 3.8 mmol/L (3.5-5.1)
[2016-12-17 05:09] LABS: INR 1.7 (0.9-1.1); PARTIAL THROMBOPLASTIN RATIO 2.1
[2016-12-17] MEDS: NITROGLYCERIN OINT 2% 1GM PACKET EXT SCH ×4 (05:10→21:19)
[2016-12-17 05:16] LABS: PROTHROMBIN TIME (PATIENT) 18.1 SECONDS (9.0-12.0)
[2016-12-17] MEDS: ALLOPURINOL 300 MG TAB PO SCH (07:50)
[2016-12-17] MEDS: METOPROLOL SUCC 50MG EXT REL TAB PO SCH ×2 (07:50→19:33)
[2016-12-17] MEDS: PANTOprazole SOD 40 MG TAB PO SCH (07:50)
[2016-12-17] MEDS: DOCUSATE SODIUM/SENNA 50/8.6MG TAB PO SCH (07:50)
[2016-12-17] MEDS: AMLODIPINE BESYLATE 5 MG TAB PO SCH (07:50)
[2016-12-17] MEDS: GABAPENTIN 100 MG CAP PO SCH ×3 (07:51→19:32)
[2016-12-17] MEDS: LACTOBACILLUS ACIDOPHILUS (FLORANEX) TAB PO SCH ×2 (07:51→19:34)
[2016-12-17] MEDS: FLINTSTONES COMPLETE CHEWABLE TAB PO SCH (07:51)
[2016-12-17] MEDS: POTASSIUM CHLORIDE 20 MEQ TABCR PO SCH ×2 (07:51→19:34)
[2016-12-17] MEDS: LISINOPRIL 20 MG TAB PO SCH ×2 (07:51→19:33)
[2016-12-17] MEDS: INSULIN ASPART 100 UNITS/ML 3 ML PEN SC SCH ×4 (07:53→21:21)
[2016-12-17] MEDS: INSULIN GLARGINE SOLOSTAR 100 UNITS/ML 3 ML PEN SC SCH ×2 (07:54→21:22)
--- NOTE | 2016-12-17 11:03 | PROGRESS NOTE ---
DATE: 12/17/2016 The patient seen and examined. Chart, medications, telemetry reviewed. SUBJECTIVE: The patient feels improved this morning, has had substantial diuresis over the past several days. Weight is down approximately 5 kilograms. Abdominal bloating is less distended. Lower extremity edema has improved per his description. Notes no chest pains. Notes no tachypalpitations. Notes no dizziness. Heart rates substantially improved on increased diuretics and beta leah. OBJECTIVE: VITAL SIGNS: Heart rate is 76, blood pressure is 127/84, O2 saturation is 96%. He tolerated CPAP last night. I's and O's are indeterminate though weight is down 5 kilograms. NECK: Thick. There is no distinct jugular venous distention. LUNGS: Reveal mildly diminished breath sounds diffusely. CARDIOVASCULAR: Irregularly irregular. There is no S3 gallop. ABDOMEN: Soft, less distended. EXTREMITIES: Reveal wrapped legs with less edema. LABORATORY DATA: White cell count 7.0, hemoglobin is 10.8. Sodium is 138, potassium is 3.8, chloride is 103, bicarbonate is 27, BUN is 30, creatinine is 1.59. IMPRESSION: An 81-year-old male with acute on chronic decompensated systolic heart failure, clinically improved. Underlying history of ischemic cardiomyopathy and poorly controlled atrial fibrillation. RECOMMENDATIONS: We will discontinue IV furosemide today, begin oral furosemide at 80 mg twice per day. Continue current increased dose of metoprolol. Gradually increase activities, continue IV heparin until anticoagulated completely with warfarin. We will follow patient in the hospital.
--- NOTE | 2016-12-17 11:36 | Progress Note ---
Internal Med Progress Note Date of Service: Dec 17, 2016. Provider Documentation: SUBJECTIVE: The patient was seen and examined Admitted with SOB and more than 20lbs weight gain in a short to=luzmaria Denies any chest pain Much better today 12/16 OBJECTIVE: Vital Signs-as noted below Exam: General-Minimal distress at rest Eyes-normal ENT-normal Neck-supple Lungs-decreased breath sound bilaterally Crackles at the bases Heart-Regular Abdomen-Benign,distended ,soft ,bowel sound present Extremities-Legs are bandaged Neuro-AAOx3 NO focal neuro deficit Lab data as noted below. ASSESSMENT & PLAN: This is an 81-year-old male who presents with a rapid atrial fibrillation with shortness of breath and hyperglycemia. Rapid atrial fibrillation. Causing SOB INR is sub therapeutic at 1.2. Started on IV Heparin and Coumadin continued Appreciate Cardiology input Elevated Troponin is secondary-doubt any ACS Rate is towards control-controlled BB has been adjusted Clinically a lot better today Used BIPAP last night and plan to use it more Acute on Chronic Systolic Heart Failure Shortness of breath EF 40%. Started on IV Lasix 40 mg TID Continue lisinopril 20 mg Restrict Oral Fluid Monitor I&O Lasix has been changed to BID Renal function is deteriorating Stopped IV Lasix Will give oral Lasix 80 mg BID Monitor PRP Hyperglycemia. The patient is diabetic. Will continue his Insulin Pharmacy consult and SSI Blood sugar is controlled History of gout. Continue allopurinol. History of coronary artery disease. Continue his lisinopril and beta leah. The patient is on Coumadin. INR not yet therapeutic Obstructive sleep apnea. Continue CPAP at bedtime. Since he is sleeping in the chair, he is not using CPAP at home but ok to use in the hospital. Gastroesophageal reflux disease. Continue PPI. Chronic kidney disease, stage III, baseline creatinine around 1.5. Follow the labs while on IV Lasix. Hyperlipidemia. Continue Crestor. Hypertension. Continue his lisinopril and metoprolol AND NORVASC Monitor the blood pressure. Lower Extremity Wounds Follows with wound clinic. Wound care consult Deep venous thrombosis prophylaxis. Currently on IV heparin. Continue Coumadin Vital Signs: Date Time Temp Pulse Resp B/P (MAP) Pulse Ox O2 Delivery O2 Flow Rate FiO2 12/17/16 08:00 Nasal Cannula 4.0 12/17/16 06:51 37.4 76 18 127/84 (98) 96 12/17/16 04:00 CPAP 3.0 12/17/16 03:25 37.7 86 19 118/76 (90) 96 12/17/16 00:06 37.5 76 17 120/82 (95) 97 12/17/16 00:00 Nasal Cannula 3.0 12/16/16 22:27 86 98 12/16/16 20:00 Nasal Cannula 3.0 12/16/16 19:25 36.6 72 20 113/75 (88) 98 Nasal Cannula 4.0 12/16/16 16:00 Nasal Cannula 4.0 12/16/16 15:27 36.8 141 20 146/82 (103) 94 Nasal Cannula 4.0 12/16/16 12:00 Nasal Cannula 4.0 Lab Results: Results Past 24 Hours Test 12/16/16 13:05 12/16/16 16:28 12/16/16 20:00 12/17/16 04:31 Range/Units Activated Partial Thromboplast Time 52.6 54.3 21.0-31.0 SECONDS Partial Thromboplastin Ratio 2.0 2.1 Bedside Glucose 101 143 70-99 mg/dl White Blood Count 7.06 4.8-10.8 K/uL Red Blood Count 3.66 4.7-6.1 M/uL Hemoglobin 10.8 14.0-18.0 g/dL Hematocrit 34.5 42-52 % Mean Corpuscular Volume 94.3 80-100 fL Mean Corpuscular Hemoglobin 29.5 25-34 pg Mean Corpuscular Hemoglobin Concent 31.3 32-36 g/dl Platelet Count 166 130-400 K/uL Mean Platelet Volume 9.6 7.4-10.4 fL Neutrophils (%) (Auto) 69.6 % Lymphocytes (%) (Auto) 14.7 % Monocytes (%) (Auto) 9.8 % Eosinophils (%) (Auto) 5.2 % Basophils (%) (Auto) 0.4 % Neutrophils # (Auto) 4.91 1.4-6.5 K/uL Lymphocytes # (Auto) 1.04 1.2-3.4 K/uL Monocytes # (Auto) 0.69 0.11-0.59 K/uL Eosinophils # (Auto) 0.37 0-0.5 K/uL Basophils # (Auto) 0.03 0-0.2 K/uL RDW Standard Deviation 56.3 36.4-46.3 fL RDW Coefficient of Variation 16.2 11.5-14.5 % Immature Granulocyte % (Auto) 0.3 % Immature Granulocyte # (Auto) 0.02 0.00-0.02 K/uL Prothrombin Time 18.1 9.0-12.0 SECONDS Prothromb Time International Ratio 1.7 0.9-1.1 Sodium Level 138 136-145 mmol/L Potassium Level 3.8 3.5-5.1 mmol/L Chloride Level 103 98-107 mmol/L Carbon Dioxide Level 27 21-32 mmol/L Anion Gap 8.0 3-11 mmol/L Blood Urea Nitrogen 30 7-18 mg/dl Creatinine 1.59 0.60-1.40 mg/dl Est Creatinine Clear Calc Drug Dose 54.2 ml/min Estimated GFR () 46.5 Estimated GFR (Non- 40.1 BUN/Creatinine Ratio 18.9 10-20 Random Glucose 149 70-99 mg/dl Calcium Level 8.4 8.5-10.1 mg/dl Magnesium Level 2.3 1.8-2.4 mg/dl Test 12/17/16 06:25 Range/Units Bedside Glucose 129 70-99 mg/dl
[2016-12-17] MEDS: HEPARIN 25000 UNIT/ D5W 500 ML (PHARMACY PREPARED) IV PRN ×2 (14:11)
[2016-12-17] MEDS: FUROSEMIDE 80 MG TAB PO SCH (16:44)
[2016-12-17] MEDS: WARFARIN SOD 10 MG TAB PO SCH (16:44)
[2016-12-17] MEDS: MIRTAZAPINE TAB 15 MG TAB PO SCH (19:32)
[2016-12-17] MEDS: ROSUVASTATIN CALCIUM 10 MG TAB PO SCH (19:32)
[2016-12-18] VITALS (8 sets, daily range): BP systolic 107–167; BP diastolic 66–93; PULSE 70–90; TEMP 36.8–38.2; O2SAT 93–97
[2016-12-18] MEDS: NITROGLYCERIN OINT 2% 1GM PACKET EXT SCH ×2 (04:00→09:18)
[2016-12-18 04:59] LABS: HEMATOCRIT 31.9 % (42-52); MEAN CELL VOLUME 94.1 fL (80-100); MEAN CORPUSCULAR HEMOGLOBIN 30.4 pg (25-34); MEAN PLATELET VOLUME 9.2 fL (7.4-10.4); PLATELET COUNT 158 K/uL (130-400); RED BLOOD COUNT 3.39 M/uL (4.7-6.1); WHITE BLOOD COUNT 7.55 K/uL (4.8-10.8)
[2016-12-18 05:13] LABS: MEAN CORPUSCULAR HGB CONC 32.3 g/dl (32-36)
[2016-12-18 05:17] LABS: INR 1.6 (0.9-1.1); PROTHROMBIN TIME (PATIENT) 17.4 SECONDS (9.0-12.0)
[2016-12-18 06:50] LABS: PARTIAL THROMBOPLASTIN RATIO 2.3
[2016-12-18] MEDS: METOPROLOL SUCC 50MG EXT REL TAB PO SCH ×2 (09:17→19:33)
[2016-12-18] MEDS: FUROSEMIDE 80 MG TAB PO SCH ×2 (09:18→17:01)
[2016-12-18] MEDS: PANTOprazole SOD 40 MG TAB PO SCH (09:18)
[2016-12-18] MEDS: GABAPENTIN 100 MG CAP PO SCH ×3 (09:18→19:32)
[2016-12-18] MEDS: LISINOPRIL 20 MG TAB PO SCH ×2 (09:18→19:34)
[2016-12-18] MEDS: FLINTSTONES COMPLETE CHEWABLE TAB PO SCH (09:18)
[2016-12-18] MEDS: ALLOPURINOL 300 MG TAB PO SCH (09:18)
[2016-12-18] MEDS: POTASSIUM CHLORIDE 20 MEQ TABCR PO SCH ×2 (09:18→19:33)
[2016-12-18] MEDS: AMLODIPINE BESYLATE 5 MG TAB PO SCH (09:18)
[2016-12-18] MEDS: DOCUSATE SODIUM/SENNA 50/8.6MG TAB PO SCH (09:18)
[2016-12-18] MEDS: LACTOBACILLUS ACIDOPHILUS (FLORANEX) TAB PO SCH ×2 (09:19→19:34)
[2016-12-18] MEDS: INSULIN ASPART 100 UNITS/ML 3 ML PEN SC SCH ×4 (09:22→20:00)
[2016-12-18] MEDS: INSULIN GLARGINE SOLOSTAR 100 UNITS/ML 3 ML PEN SC SCH ×2 (09:23→19:59)
[2016-12-18 09:26] LABS: BUN/CREATININE RATIO 21.3 (10-20); CALCIUM 8.7 mg/dl (8.5-10.1); CREATININE 1.42 mg/dl (0.60-1.40); MAGNESIUM 2.2 mg/dl (1.8-2.4)
[2016-12-18] MEDS ORDERED: ISOSORBIDE MONONITRATE 60 MG TABCR PO ONE (11:00)
--- NOTE | 2016-12-18 11:13 | CARDIOLOGY PROGRESS NOTE ---
DATE: 12/18/2016 The patient seen and examined. Chart, medications, telemetry reviewed. SUBJECTIVE: The patient feels stable this morning. Notes sugars have produced. Notes no dizziness or lightheadedness. Notes no worsening edema. Appetite has been good. He has been out of bed to chair. Notes knees bother him on lying in bed. OBJECTIVE: VITAL SIGNS: Heart rate 70, blood pressure is 152/93. NECK: Thick. There is no distinct jugular venous distention. LUNGS: Reveal mildly diminished breath sounds. CARDIOVASCULAR: Irregularly irregular. There is no S3 gallop. ABDOMEN: Obese, soft. EXTREMITIES: Reveal chronic stasis changes and edema, slightly less than prior examinations. LABORATORY STUDIES: Sodium is 139, potassium is 4.0, chloride is 103, bicarbonate is 29, BUN is 30, creatinine is 1.4, hemoglobin is 10.3. Telemetry reveals atrial fibrillation with better rate control. IMPRESSION: A complex 81-year-old male with issues as follows: 1. [id number] decompensated systolic heart failure. 2. Ischemic cardiomyopathy. 3. Atrial fibrillation with poorly controlled ventricular response rates. 4. Chronic renal insufficiency. RECOMMENDATIONS: We will continue to follow weights and fluid status on oral diuretics, may need to increase dosage. Continue current increased dose of metoprolol succinate. We will switch topical nitrates to oral, add hydralazine to regimen for afterload reduction.
--- NOTE | 2016-12-18 12:33 | Progress Note ---
Internal Med Progress Note Date of Service: Dec 18, 2016. Provider Documentation: SUBJECTIVE: The patient was seen and examined Admitted with SOB and more than 20lbs weight gain in a short to=luzmaria Denies any chest pain Much better today 12/16 and 12/18 Denies any symptoms OBJECTIVE: Vital Signs-as noted below Exam: General-Minimal distress at rest Eyes-normal ENT-normal Neck-supple Lungs-decreased breath sound bilaterally Crackles at the bases-diminished Heart-Regular Abdomen-Benign,distended ,soft ,bowel sound present Extremities-Legs are bandaged Neuro-AAOx3 NO focal neuro deficit Lab data as noted below. ASSESSMENT & PLAN: This is an 81-year-old male who presents with a rapid atrial fibrillation with shortness of breath and hyperglycemia. Rapid atrial fibrillation. Causing SOB INR is sub therapeutic at 1.2. Started on IV Heparin and Coumadin continued Appreciate Cardiology input Elevated Troponin is secondary-doubt any ACS Rate is towards control-controlled BB has been adjusted Clinically a lot better today Used BIPAP last night and plan to use it more Feels good this AM Acute on Chronic Systolic Heart Failure Shortness of breath EF 40%. Started on IV Lasix 40 mg TID Continue lisinopril 20 mg Restrict Oral Fluid Monitor I&O Lasix has been changed to BID Renal function is deteriorating Stopped IV Lasix Will give oral Lasix 80 mg BID and may need to bubba=rate subsequently Monitor PRP-Improving Continue current medications for now Hydralazine added Hyperglycemia. The patient is diabetic. Will continue his Insulin Pharmacy consult and SSI Blood sugar is controlled Has had Hypoglycemia yesterday History of gout. Continue allopurinol. History of coronary artery disease. Continue his lisinopril and beta leah. The patient is on Coumadin. INR not yet therapeutic Obstructive sleep apnea. Continue CPAP at bedtime. Since he is sleeping in the chair, he is not using CPAP at home but ok to use in the hospital. Gastroesophageal reflux disease. Continue PPI. Chronic kidney disease, stage III, baseline creatinine around 1.5. Follow the labs while on IV Lasix. Hyperlipidemia. Continue Crestor. Hypertension. Continue his lisinopril and metoprolol AND NORVASC Monitor the blood pressure. Lower Extremity Wounds Follows with wound clinic. Wound care consult Deep venous thrombosis prophylaxis. Currently on IV heparin. Continue Coumadin Vital Signs: Date Time Temp Pulse Resp B/P (MAP) Pulse Ox O2 Delivery O2 Flow Rate FiO2 12/18/16 12:00 Nasal Cannula 2.0 12/18/16 11:44 36.8 90 18 167/76 (106) 96 12/18/16 09:52 72 94 12/18/16 08:00 Nasal Cannula 2.0 12/18/16 07:41 36.8 70 18 152/93 (112) 95 CPAP 12/18/16 04:00 CPAP 3.0 12/18/16 03:26 36.8 81 23 120/72 (88) 94 12/18/16 00:01 CPAP 3.0 12/17/16 23:20 36.4 88 20 121/74 (90) 94 12/17/16 22:14 88 91 3.0 12/17/16 20:04 36.9 82 24 123/66 (85) 97 Nasal Cannula 3.0 12/17/16 20:00 CPAP 3.0 12/17/16 16:00 99 Nasal Cannula 2.0 Lab Results: Results Past 24 Hours Test 12/17/16 16:05 12/17/16 20:37 12/18/16 04:32 12/18/16 04:38 Range/Units Bedside Glucose 133 189 70-99 mg/dl White Blood Count 7.55 4.8-10.8 K/uL Red Blood Count 3.39 4.7-6.1 M/uL Hemoglobin 10.3 14.0-18.0 g/dL Hematocrit 31.9 42-52 % Mean Corpuscular Volume 94.1 80-100 fL Mean Corpuscular Hemoglobin 30.4 25-34 pg Mean Corpuscular Hemoglobin Concent 32.3 32-36 g/dl RDW Standard Deviation 55.7 36.4-46.3 fL RDW Coefficient of Variation 16.3 11.5-14.5 % Platelet Count 158 130-400 K/uL Mean Platelet Volume 9.2 7.4-10.4 fL Prothrombin Time 17.4 9.0-12.0 SECONDS Prothromb Time International Ratio 1.6 0.9-1.1 Sodium Level 139 136-145 mmol/L Potassium Level 4.0 3.5-5.1 mmol/L Chloride Level 103 98-107 mmol/L Carbon Dioxide Level 29 21-32 mmol/L Anion Gap 7.0 3-11 mmol/L Blood Urea Nitrogen 30 7-18 mg/dl Creatinine 1.42 0.60-1.40 mg/dl Est Creatinine Clear Calc Drug Dose 60.7 ml/min Estimated GFR () 53.3 Estimated GFR (Non- 46.0 BUN/Creatinine Ratio 21.3 10-20 Random Glucose 78 70-99 mg/dl Calcium Level 8.7 8.5-10.1 mg/dl Magnesium Level 2.2 1.8-2.4 mg/dl Test 12/18/16 06:11 12/18/16 06:54 12/18/16 11:11 Range/Units Activated Partial Thromboplast Time 60.2 21.0-31.0 SECONDS Partial Thromboplastin Ratio 2.3 Bedside Glucose 88 171 70-99 mg/dl
[2016-12-18] MEDS: WARFARIN SOD 10 MG TAB PO SCH (17:00)
[2016-12-18] MEDS: ROSUVASTATIN CALCIUM 10 MG TAB PO SCH (19:31)
[2016-12-18] MEDS: MIRTAZAPINE TAB 15 MG TAB PO SCH (19:32)
[2016-12-19] VITALS (9 sets, daily range): BP systolic 96–135; BP diastolic 58–75; PULSE 65–105; TEMP 36.4–37.6; O2SAT 91–97
[2016-12-19] MEDS: HEPARIN 25000 UNIT/ D5W 500 ML (PHARMACY PREPARED) IV PRN ×4 (06:06→16:43)
[2016-12-19] MEDS: FLINTSTONES COMPLETE CHEWABLE TAB PO SCH (07:59)
[2016-12-19] MEDS: GABAPENTIN 100 MG CAP PO SCH ×3 (07:59→20:50)
[2016-12-19] MEDS: ISOSORBIDE MONONITRATE 60 MG TABCR PO SCH (07:59)
[2016-12-19] MEDS: ALLOPURINOL 300 MG TAB PO SCH (08:00)
[2016-12-19] MEDS: FUROSEMIDE 80 MG TAB PO SCH ×2 (08:00→16:47)
[2016-12-19] MEDS: POTASSIUM CHLORIDE 20 MEQ TABCR PO SCH ×2 (08:00→20:49)
[2016-12-19] MEDS: DOCUSATE SODIUM/SENNA 50/8.6MG TAB PO SCH (08:01)
[2016-12-19] MEDS: LISINOPRIL 20 MG TAB PO SCH ×2 (08:01→20:53)
[2016-12-19] MEDS: METOPROLOL SUCC 50MG EXT REL TAB PO SCH ×2 (08:01→20:54)
[2016-12-19] MEDS: PANTOprazole SOD 40 MG TAB PO SCH (08:02)
[2016-12-19] MEDS: LACTOBACILLUS ACIDOPHILUS (FLORANEX) TAB PO SCH ×2 (08:02→20:54)
[2016-12-19] MEDS: AMLODIPINE BESYLATE 5 MG TAB PO SCH (08:02)
[2016-12-19] MEDS: INSULIN ASPART 100 UNITS/ML 3 ML PEN SC SCH ×4 (08:07→21:01)
[2016-12-19] MEDS: INSULIN GLARGINE SOLOSTAR 100 UNITS/ML 3 ML PEN SC SCH ×2 (08:07→21:02)
[2016-12-19 08:12] LABS: INR 1.6 (0.9-1.1); PARTIAL THROMBOPLASTIN RATIO 2.3; PROTHROMBIN TIME (PATIENT) 17.3 SECONDS (9.0-12.0)
[2016-12-19 08:18] LABS: BUN/CREATININE RATIO 22.4 (10-20); CALCIUM 8.6 mg/dl (8.5-10.1); CREATININE 1.53 mg/dl (0.60-1.40); MAGNESIUM 2.4 mg/dl (1.8-2.4); POTASSIUM 3.7 mmol/L (3.5-5.1)
--- NOTE | 2016-12-19 11:29 | Progress Note ---
Internal Med Progress Note Date of Service: Dec 19, 2016. Provider Documentation: SUBJECTIVE: The patient was seen and examined Admitted with SOB and more than 20lbs weight gain in a short to=luzmaria Denies any chest pain Clinically a lot better Denies any symptoms and denies any more leg pain OBJECTIVE: Vital Signs-as noted below Exam: General-Minimal distress at rest Eyes-normal ENT-normal Neck-supple Lungs-decreased breath sound bilaterally Crackles at the bases-diminished Heart-Regular Abdomen-Benign,distended ,soft ,bowel sound present Extremities-Legs are bandaged Neuro-AAOx3 NO focal neuro deficit Lab data as noted below. ASSESSMENT & PLAN: This is an 81-year-old male who presents with a rapid atrial fibrillation with shortness of breath and hyperglycemia. Rapid atrial fibrillation. Causing SOB INR is sub therapeutic at 1.2. Started on IV Heparin and Coumadin continued Appreciate Cardiology input Elevated Troponin is secondary-doubt any ACS Rate is towards control-controlled BB has been adjusted Used BIPAP last night and plan to use it more Feels good this AM Rate is controlled Acute on Chronic Systolic Heart Failure Shortness of breath EF 40%. Started on IV Lasix 40 mg TID Continue lisinopril 20 mg Restrict Oral Fluid Monitor I&O Lasix has been changed to BID Stopped IV Lasix Will give oral Lasix 80 mg BID and may need to bubba=rate subsequently Monitor PRP-stable Continue current medications for now Hydralazine added Clinically a lot better Hyperglycemia. The patient is diabetic. Will continue his Insulin Pharmacy consult and SSI Blood sugar is controlled Has had Hypoglycemia yesterday No0 more episode History of gout. Continue allopurinol. History of coronary artery disease. Continue his lisinopril and beta leah. The patient is on Coumadin. INR not yet therapeutic-will give 12.5 mg Coumadin daily Obstructive sleep apnea. Continue CPAP at bedtime. Since he is sleeping in the chair, he is not using CPAP at home but ok to use in the hospital. Gastroesophageal reflux disease. Continue PPI. Chronic kidney disease, stage III, baseline creatinine around 1.5. Follow the labs while on IV Lasix. Hyperlipidemia. Continue Crestor. Hypertension. Continue his lisinopril and metoprolol AND NORVASC Monitor the blood pressure. Lower Extremity Wounds Follows with wound clinic. Wound care consult Deep venous thrombosis prophylaxis. Currently on IV heparin. Continue Coumadin until INR is therapeutic Vital Signs: Date Time Temp Pulse Resp B/P (MAP) Pulse Ox O2 Delivery O2 Flow Rate FiO2 12/19/16 11:00 37.6 81 19 103/62 (76) 92 12/19/16 08:34 36.8 80 20 115/69 (84) 91 12/19/16 08:00 Nasal Cannula 2.0 12/19/16 04:06 36.4 65 20 129/66 (87) 94 BiPAP 12/19/16 04:00 Nasal Cannula 2.0 12/19/16 00:01 Nasal Cannula 2.0 12/18/16 23:59 37.4 76 19 143/75 (97) 93 BiPAP 12/18/16 22:01 78 94 2.0 12/18/16 20:00 Nasal Cannula 2.0 12/18/16 19:16 37.4 71 26 107/66 (80) 96 Nasal Cannula 2.0 12/18/16 15:36 38.2 83 22 123/66 (85) 97 Nasal Cannula 2.0 12/18/16 12:00 Nasal Cannula 2.0 12/18/16 11:44 36.8 90 18 167/76 (106) 96 Lab Results: Results Past 24 Hours Test 12/18/16 16:10 12/18/16 19:52 12/19/16 06:43 12/19/16 07:25 Range/Units Bedside Glucose 139 142 139 70-99 mg/dl Prothrombin Time 17.3 9.0-12.0 SECONDS Prothromb Time International Ratio 1.6 0.9-1.1 Activated Partial Thromboplast Time 60.8 21.0-31.0 SECONDS Partial Thromboplastin Ratio 2.3 Sodium Level 135 136-145 mmol/L Potassium Level 3.7 3.5-5.1 mmol/L Chloride Level 101 98-107 mmol/L Carbon Dioxide Level 26 21-32 mmol/L Anion Gap 8.0 3-11 mmol/L Blood Urea Nitrogen 34 7-18 mg/dl Creatinine 1.53 0.60-1.40 mg/dl Est Creatinine Clear Calc Drug Dose 56.4 ml/min Estimated GFR () 48.7 Estimated GFR (Non- 42.0 BUN/Creatinine Ratio 22.4 10-20 Random Glucose 119 70-99 mg/dl Calcium Level 8.6 8.5-10.1 mg/dl Magnesium Level 2.4 1.8-2.4 mg/dl
--- NOTE | 2016-12-19 12:41 | Pharmacy Progress Note ---
Pharmacy Glycemic Sign Off Nt Date of Service Dec 19, 2016. Assessment & Plan ASSESSMENT: * BSG's well controlled x48 hours with no changes made to glycemic regimen * Spoke w Dr. Juanita LE to discontinue glycemic consult at this time PLAN FOR INPATIENT GLYCEMIC CONTROL: No changes needed to current regimen. * Continue basal insulin with Lantus 23 units SQ BID * Continue NovoLog per scale [id number]/Q6hrs while NPO * Goal range = 110-140 mg/dl * CF = 15 mg/dl/unit * CR = 1 unit for ever 5 g CHO consumed * Pharmacy is signing off of glycemic consult and will no longer be making adjustments to inpatient regimen. Please feel free to re-consult if needed. Thank you.
--- NOTE | 2016-12-19 14:49 | PROGRESS NOTE ---
DATE: 12/19/2016 CARDIOLOGY CONSULTATION FOLLOWUP NOTE The patient seen and examined. Chart, medications, telemetry reviewed. SUBJECTIVE: The patient appears somewhat subdued today, but notes no cardiac complaints. Notes leg pain when sitting upright. Notes no chest pains, tachypalpitations, syncope, or near syncope. Notes no worsening shortness of breath. OBJECTIVE: VITAL SIGNS: Heart rate 75, blood pressure is 100/60. NECK: Thick. There is no distinct jugular venous distention. LUNGS: Notable for generally clear air penn with diminished breath sounds diffusely. CARDIOVASCULAR: Irregularly irregular with controlled ventricular response rate. ABDOMEN: Soft, nondistended. EXTREMITIES: Without cyanosis or clubbing. There is 1-2+ lower extremity edema. IMPRESSION: Complex 81-year-old male admitted with multiple issues including atrial fibrillation with elevated ventricular response rate, acute on chronic decompensated systolic heart failure in the setting of ischemic cardiomyopathy and chronic renal insufficiency. The patient's main complaints are leg discomfort. Blood pressure is trending slightly lower than it has in the past. PLAN: Continue all current medical therapies, though will hold hydralazine. Heart rate is appropriately controlled. Anticoagulation appears to be still subtherapeutic. Will follow patient in the hospital.
[2016-12-19] MEDS ORDERED: WARFARIN SOD 2.5 MG TAB PO SCH (16:00)
[2016-12-19] MEDS: WARFARIN TAB 10 MG, WARFARIN TAB 2.5 MG PO SCH ×2 (16:45)
[2016-12-19] MEDS: ROSUVASTATIN CALCIUM 10 MG TAB PO SCH (20:55)
[2016-12-19] MEDS: MIRTAZAPINE TAB 15 MG TAB PO SCH (20:56)
[2016-12-20] VITALS (7 sets, daily range): BP systolic 128–168; BP diastolic 71–89; PULSE 77–87; TEMP 36.6–37.2; O2SAT 92–95
[2016-12-20 05:33] LABS: HEMATOCRIT 32.7 % (42-52); MEAN CELL VOLUME 93.4 fL (80-100); MEAN PLATELET VOLUME 9.2 fL (7.4-10.4); PLATELET COUNT 165 K/uL (130-400); WHITE BLOOD COUNT 6.72 K/uL (4.8-10.8)
[2016-12-20 05:48] LABS: BUN/CREATININE RATIO 22.2 (10-20); CALCIUM 8.9 mg/dl (8.5-10.1); CREATININE 1.63 mg/dl (0.60-1.40); MAGNESIUM 2.3 mg/dl (1.8-2.4); POTASSIUM 3.9 mmol/L (3.5-5.1)
[2016-12-20 05:49] LABS: INR 1.7 (0.9-1.1); PHOSPHORUS 3.9 mg/dl (2.5-4.9); PROTHROMBIN TIME (PATIENT) 18.5 SECONDS (9.0-12.0)
[2016-12-20 05:50] LABS: MEAN CORPUSCULAR HGB CONC 32.1 g/dl (32-36)
[2016-12-20 07:36] LABS: PARTIAL THROMBOPLASTIN RATIO 2.5
[2016-12-20] MEDS: HEPARIN 25000 UNIT/ D5W 500 ML (PHARMACY PREPARED) IV PRN ×2 (08:44)
[2016-12-20] MEDS: INSULIN ASPART 100 UNITS/ML 3 ML PEN SC SCH ×4 (10:15→21:39)
[2016-12-20] MEDS: INSULIN GLARGINE SOLOSTAR 100 UNITS/ML 3 ML PEN SC SCH ×2 (10:16→21:38)
[2016-12-20] MEDS: LACTOBACILLUS ACIDOPHILUS (FLORANEX) TAB PO SCH ×2 (10:21→21:51)
[2016-12-20] MEDS: FLINTSTONES COMPLETE CHEWABLE TAB PO SCH (10:21)
[2016-12-20] MEDS: ISOSORBIDE MONONITRATE 60 MG TABCR PO SCH (10:22)
[2016-12-20] MEDS: GABAPENTIN 100 MG CAP PO SCH ×3 (10:26→21:53)
[2016-12-20] MEDS: POTASSIUM CHLORIDE 20 MEQ TABCR PO SCH ×2 (10:26→21:52)
[2016-12-20] MEDS: AMLODIPINE BESYLATE 5 MG TAB PO SCH (10:27)
[2016-12-20] MEDS: DOCUSATE SODIUM/SENNA 50/8.6MG TAB PO SCH (10:29)
[2016-12-20] MEDS: PANTOprazole SOD 40 MG TAB PO SCH (10:29)
[2016-12-20] MEDS: ALLOPURINOL 300 MG TAB PO SCH (10:31)
[2016-12-20] MEDS: METOPROLOL SUCC 50MG EXT REL TAB PO SCH ×2 (10:31→21:54)
[2016-12-20] MEDS: LISINOPRIL 20 MG TAB PO SCH ×2 (10:31→21:54)
[2016-12-20] MEDS: FUROSEMIDE 80 MG TAB PO SCH ×2 (10:32→17:00)
[2016-12-20] MEDS ORDERED: NURSING VERBAL MED ORDER ONE (11:00)
[2016-12-20] MEDS ORDERED: EUCERIN CR 120 GM JAR EXT PRN (12:00)
--- NOTE | 2016-12-20 14:04 | CARDIOLOGY PROGRESS NOTE ---
DATE: 12/20/2016 The patient was seen and examined. Chart, medications, and telemetry were reviewed. SUBJECTIVE: The patient feels somewhat brighter today. He denies any chest pains or worsening shortness of breath. He has been attempting to get out of bed to chair. Notes no tachypalpitations, dizziness or lightheadedness. Heart has been better controlled. OBJECTIVE: VITAL SIGNS: Heart rate is 84 and blood pressure is 134/89. NECK: Thick. There is no distinct jugular venous distention. HEENT: Normocephalic and atraumatic. LUNGS: Revealed diminished breath sounds, but are predominantly clear. CARDIOVASCULAR: Irregularly irregular. ABDOMEN: Obese and soft. EXTREMITIES: Reveal 2+ edema to above the knees. LABORATORY DATA: White cell count 6.7 and hemoglobin is 10.5. Sodium is 138, potassium is 3.9, chloride is 104, bicarbonate is 25, BUN is 36, and creatinine is 1.63. IMPRESSION: An 81-year-old male with a complex history, which includes acute on chronic decompensated systolic heart failure, ischemic cardiomyopathy, atrial fibrillation with poorly controlled ventricular response rate and chronic renal insufficiency. The patient appears clinically stable on examination today, though lower extremity edema appears slightly more pronounced. PLAN: Will be to continue current dosing of furosemide 80 mg twice per day. I suspect that the patient may ultimately need a dose of metolazone once per week. I will review in a.m. and possibly give an oral dose in a.m. depending on renal function and weight gain or loss. Encourage sodium restriction, fluid restriction and continued use of CPAP at night.
[2016-12-20] MEDS: WARFARIN TAB 10 MG, WARFARIN TAB 2.5 MG PO SCH ×2 (16:00)
--- NOTE | 2016-12-20 16:50 | Progress Note ---
Internal Med Progress Note Date of Service: Dec 20, 2016. Provider Documentation: SUBJECTIVE: Seen and examined at bedside States feeling better Denies chest pain, SOB, abd pain, dizziness Currently saturating 92 % on room air On Heparin ggt Weight down by 4 kgs since admission No other complaints OBJECTIVE: Vital Signs-as noted below Physical Exam: General Appearance:Moderately built and nourished, no apparent distress Head: normocephalic, Atraumatic Eyes: normal inspection, EOMI, PERRL Neck: supple, Trachea midline Respiratory/Chest: Decreased breath sounds, CTA Cardiovascular: S1, S2, No murmur Abdomen/GI:Soft, Non tender, Bowel sounds present Extremities/Musculoskelatal:normal inspection, B/L LE edema Neurologic/Psych:AAOX3, grossly no focal neurological deficits Skin: normal color, warm Lab data as noted below. ASSESSMENT & PLAN: Patient is an 81yr male who presents with a rapid atrial fibrillation with shortness of breath and hyperglycemia. Afib with RVR: Presented with SOB INR sub therapeutic at 1.2 on presentation Continue IV Heparin and Coumadin continued Appreciate Cardiology input Elevated Troponin is secondary to Afib-doubt any ACS Rate controlled BB has been adjusted Encourage to use BIPAP Monitor INR:1.7 today Acute on Chronic Systolic Heart Failure Presented with Shortness of breath, weight gain EF 40%. S/P IV Lasix 40 mg TID Continue lisinopril 20 mg Restrict Oral Fluid Monitor I&O, weight Lasix has been changed to 80 mg PO BID Monitor renal function Continue current medications Improving DM II A1C; 8.3 continue Insulin Pharmacy consult and SSI Blood sugar is controlled H/O gout. Continue allopurinol. H/O Coronary artery disease. Continue his lisinopril and beta leah. The patient is on Coumadin. INR not yet therapeutic-will give 12.5 mg Coumadin daily Obstructive sleep apnea: Continue CPAP at bedtime. Since he is sleeping in the chair, he is not using CPAP at home but ok to use in the hospital. GERD: Continue PPI. CKD III: baseline creatinine around 1.5. Follow renal function while on Lasix. Hyperlipidemia. Continue Crestor. Hypertension. Continue his lisinopril and metoprolol, added NORVASC Monitor Lower Extremity Wounds Follows with wound clinic. Wound care consult DVT Px: Currently on IV heparin and coumadin Vital Signs: Date Time Temp Pulse Resp B/P (MAP) Pulse Ox O2 Delivery O2 Flow Rate FiO2 12/20/16 15:07 37.2 77 22 128/74 (92) 92 Room Air 12/20/16 11:32 36.8 84 20 134/89 (104) 93 12/20/16 10:47 94 Room Air 12/20/16 08:00 Room Air 12/20/16 07:50 36.6 78 22 160/75 (103) 94 Room Air 12/20/16 00:19 36.9 87 20 168/71 (103) 95 CPAP 12/20/16 00:00 CPAP 12/19/16 22:24 105 94 2.0 12/19/16 20:51 75 114/68 (83) Lab Results: Results Past 24 Hours Test 12/19/16 16:52 12/19/16 19:56 12/20/16 05:17 12/20/16 06:40 Range/Units Bedside Glucose 255 235 70-99 mg/dl White Blood Count 6.72 4.8-10.8 K/uL Red Blood Count 3.50 4.7-6.1 M/uL Hemoglobin 10.5 14.0-18.0 g/dL Hematocrit 32.7 42-52 % Mean Corpuscular Volume 93.4 80-100 fL Mean Corpuscular Hemoglobin 30.0 25-34 pg Mean Corpuscular Hemoglobin Concent 32.1 32-36 g/dl RDW Standard Deviation 53.4 36.4-46.3 fL RDW Coefficient of Variation 15.7 11.5-14.5 % Platelet Count 165 130-400 K/uL Mean Platelet Volume 9.2 7.4-10.4 fL Prothrombin Time 18.5 9.0-12.0 SECONDS Prothromb Time International Ratio 1.7 0.9-1.1 Sodium Level 138 136-145 mmol/L Potassium Level 3.9 3.5-5.1 mmol/L Chloride Level 104 98-107 mmol/L Carbon Dioxide Level 25 21-32 mmol/L Anion Gap 9.0 3-11 mmol/L Blood Urea Nitrogen 36 7-18 mg/dl Creatinine 1.63 0.60-1.40 mg/dl Est Creatinine Clear Calc Drug Dose 52.9 ml/min Estimated GFR () 45.1 Estimated GFR (Non- 38.9 BUN/Creatinine Ratio 22.2 10-20 Random Glucose 85 70-99 mg/dl Calcium Level 8.9 8.5-10.1 mg/dl Phosphorus Level 3.9 2.5-4.9 mg/dl Magnesium Level 2.3 1.8-2.4 mg/dl Activated Partial Thromboplast Time 64.6 21.0-31.0 SECONDS Partial Thromboplastin Ratio 2.5 Test 12/20/16 07:13 12/20/16 11:29 Range/Units Bedside Glucose 110 179 70-99 mg/dl
[2016-12-20] MEDS: ROSUVASTATIN CALCIUM 10 MG TAB PO SCH (21:54)
[2016-12-20] MEDS: MIRTAZAPINE TAB 15 MG TAB PO SCH (21:55)
[2016-12-21] VITALS: O2SAT 95
[2016-12-21 00:13] VITALS: BP 112/69; PULSE 177; TEMP 36.9; O2SAT 98
[2016-12-21 03:41] VITALS: PULSE 82; O2SAT 94
[2016-12-21 06:32] LABS: INR 1.7 (0.9-1.1); PARTIAL THROMBOPLASTIN RATIO 2.1
[2016-12-21 06:52] LABS: BUN/CREATININE RATIO 24.4 (10-20); CALCIUM 8.7 mg/dl (8.5-10.1); CREATININE 1.5 mg/dl (0.60-1.40); POTASSIUM 3.9 mmol/L (3.5-5.1)
[2016-12-21 07:41] VITALS: BP 129/68; PULSE 71; TEMP 36.9; O2SAT 95
[2016-12-21] MEDS: DOCUSATE SODIUM/SENNA 50/8.6MG TAB PO SCH (08:00)
[2016-12-21] MEDS: FLINTSTONES COMPLETE CHEWABLE TAB PO SCH (08:01)
[2016-12-21] MEDS: LACTOBACILLUS ACIDOPHILUS (FLORANEX) TAB PO SCH ×2 (08:02→21:34)
[2016-12-21] MEDS: POTASSIUM CHLORIDE 20 MEQ TABCR PO SCH ×2 (08:04→21:32)
[2016-12-21] MEDS: ISOSORBIDE MONONITRATE 60 MG TABCR PO SCH (08:04)
[2016-12-21] MEDS: GABAPENTIN 100 MG CAP PO SCH ×3 (08:05→21:27)
[2016-12-21] MEDS: PANTOprazole SOD 40 MG TAB PO SCH (08:06)
[2016-12-21] MEDS: AMLODIPINE BESYLATE 5 MG TAB PO SCH (08:06)
[2016-12-21] MEDS: LISINOPRIL 20 MG TAB PO SCH ×2 (08:07→21:34)
[2016-12-21] MEDS: METOPROLOL SUCC 50MG EXT REL TAB PO SCH ×2 (08:07→21:34)
[2016-12-21] MEDS: ALLOPURINOL 300 MG TAB PO SCH (08:07)
[2016-12-21] MEDS: INSULIN GLARGINE SOLOSTAR 100 UNITS/ML 3 ML PEN SC SCH ×2 (08:10→21:29)
[2016-12-21] MEDS: INSULIN ASPART 100 UNITS/ML 3 ML PEN SC SCH ×4 (09:13→21:39)
[2016-12-21] MEDS: FUROSEMIDE 80 MG TAB PO SCH ×2 (09:15→17:20)
--- NOTE | 2016-12-21 11:33 | CARDIOLOGY PROGRESS NOTE ---
DATE: 12/21/2016 DATE: 12/21/2016 The patient seen and examined. Chart, medications, laboratory studies reviewed. SUBJECTIVE: The patient sitting out of bed in chair and looks improved this morning and notes no chest pains. Notes no dizziness. Notes no lightheadedness. Leg edema slightly diminished. OBJECTIVE: VITAL SIGNS: Heart rate 77, blood pressure is 128/74, O2 saturations 94% on room air. NECK: Thick. There is no distinct jugular venous distention. LUNGS: Reveal diminished breath sounds but are clear. CARDIOVASCULAR EXAMINATION: Irregularly irregular with good rate control. ABDOMEN: Soft, slightly less distended. EXTREMITIES: Reveal 2+ chronic edema with support stockings in place. LABORATORY STUDIES: Sodium is 138, potassium is 3.9, chloride is 104, bicarb 26, BUN 37, creatinine is 1.5, hemoglobin is 10.5. IMPRESSION: An 81-year-old male with complex history who presented with acute on chronic decompensated congestive heart failure, atrial fibrillation with rapid ventricular response. The patient appears to be manifesting better clinical status. Heart failure appears to be better improved. Heart rates are much better improved. I will continue all current therapies. I will need to follow closely for signs or symptoms of fluid retention. Continue to urge use of CPAP at night, fluid restriction, sodium restriction. Daily weights have been ordered.
[2016-12-21] MEDS: WARFARIN TAB 10 MG, WARFARIN TAB 2.5 MG PO SCH ×2 (15:18)
--- NOTE | 2016-12-21 17:33 | Progress Note ---
Internal Med Progress Note Date of Service: Dec 21, 2016. Provider Documentation: SUBJECTIVE: Seen and examined at bedside Doing well Denies chest pain, SOB, abd pain, dizziness Currently saturating 95 % on room air On Heparin ggt Weight down by 7 kg since admission No other complaints OBJECTIVE: Vital Signs-as noted below Physical Exam: General Appearance:Moderately built and nourished, no apparent distress Head: normocephalic, Atraumatic Eyes: normal inspection, EOMI, PERRL Neck: supple, Trachea midline Respiratory/Chest: Decreased breath sounds, CTA Cardiovascular: S1, S2, No murmur Abdomen/GI:Soft, Non tender, Bowel sounds present Extremities/Musculoskelatal:normal inspection, B/L LE edema Neurologic/Psych:AAOX3, grossly no focal neurological deficits Skin: normal color, warm Lab data as noted below. ASSESSMENT & PLAN: Patient is an 81yr male who presents with a rapid atrial fibrillation with shortness of breath and hyperglycemia. Afib with RVR: Presented with SOB INR sub therapeutic at 1.2 on presentation Continue IV Heparin and Coumadin continued Appreciate Cardiology input Elevated Troponin is secondary to Afib-doubt any ACS Rate controlled BB has been adjusted Encourage to use BIPAP Monitor INR:1.7 today Acute on Chronic Systolic Heart Failure Presented with Shortness of breath, weight gain EF 40%. S/P IV Lasix 40 mg TID Continue lisinopril 20 mg Fluid restriction Monitor I&O, weight Lasix has been changed to 80 mg PO BID Monitor renal function Continue current medications Improving clinically DM II A1C; 8.3 continue Insulin Pharmacy consult and SSI Blood sugar is controlled H/O gout. Continue allopurinol. H/O Coronary artery disease. Continue his lisinopril and beta leah. The patient is on Coumadin. INR not yet therapeutic-will give 12.5 mg Coumadin daily Obstructive sleep apnea: Continue CPAP at bedtime. Since he is sleeping in the chair, he is not using CPAP at home but ok to use in the hospital. Has been using CPAP during hospital stay GERD: Continue PPI. CKD III: baseline creatinine around 1.5. Monitor renal function and electrolytes Hyperlipidemia. Continue Crestor. Hypertension. Continue his lisinopril and metoprolol, added NORVASC Monitor Lower Extremity Wounds Follows with wound clinic. Wound care consult DVT Px: Currently on IV heparin and coumadin Vital Signs: Date Time Temp Pulse Resp B/P (MAP) Pulse Ox O2 Delivery O2 Flow Rate FiO2 12/21/16 15:00 Room Air 12/21/16 09:41 Room Air 12/21/16 07:46 Room Air 12/21/16 07:41 36.9 71 12 129/68 (88) 95 Room Air 12/21/16 03:41 82 94 2.0 12/21/16 00:13 36.9 177 20 112/69 (83) 98 BiPAP 12/21/16 00:00 95 CPAP 12/20/16 22:05 82 95 2.0 Lab Results: Results Past 24 Hours Test 12/20/16 19:56 12/21/16 05:32 12/21/16 07:39 12/21/16 11:09 Range/Units Bedside Glucose 194 139 163 70-99 mg/dl Prothrombin Time 19.0 9.0-12.0 SECONDS Prothromb Time International Ratio 1.7 0.9-1.1 Activated Partial Thromboplast Time 54.3 21.0-31.0 SECONDS Partial Thromboplastin Ratio 2.1 Sodium Level 138 136-145 mmol/L Potassium Level 3.9 3.5-5.1 mmol/L Chloride Level 104 98-107 mmol/L Carbon Dioxide Level 26 21-32 mmol/L Anion Gap 8.0 3-11 mmol/L Blood Urea Nitrogen 37 7-18 mg/dl Creatinine 1.50 0.60-1.40 mg/dl Est Creatinine Clear Calc Drug Dose 57.5 ml/min Estimated GFR () 49.9 Estimated GFR (Non- 43.0 BUN/Creatinine Ratio 24.4 10-20 Random Glucose 122 70-99 mg/dl Calcium Level 8.7 8.5-10.1 mg/dl Test 12/21/16 16:39 Range/Units Bedside Glucose 218 70-99 mg/dl
[2016-12-21] MEDS: HEPARIN 25000 UNIT/ D5W 500 ML (PHARMACY PREPARED) IV PRN ×2 (20:42)
[2016-12-21] MEDS: ROSUVASTATIN CALCIUM 10 MG TAB PO SCH (21:28)
[2016-12-21] MEDS: MIRTAZAPINE TAB 15 MG TAB PO SCH (21:31)
[2016-12-21 21:56] VITALS: PULSE 76; O2SAT 94
[2016-12-21 23:30] VITALS: BP 130/75; PULSE 76; TEMP 36.3; O2SAT 99
[2016-12-22 07:03] LABS: HEMATOCRIT 34.2 % (42-52); MEAN CELL VOLUME 93.4 fL (80-100); MEAN CORPUSCULAR HEMOGLOBIN 29.8 pg (25-34); MEAN CORPUSCULAR HGB CONC 31.9 g/dl (32-36); MEAN PLATELET VOLUME 9.3 fL (7.4-10.4); PLATELET COUNT 179 K/uL (130-400); RED BLOOD COUNT 3.66 M/uL (4.7-6.1); WHITE BLOOD COUNT 7.54 K/uL (4.8-10.8)
[2016-12-22 07:18] LABS: INR 1.8 (0.9-1.1); PARTIAL THROMBOPLASTIN RATIO 2.3; PROTHROMBIN TIME (PATIENT) 20.3 SECONDS (9.0-12.0)
[2016-12-22 07:32] LABS: BUN/CREATININE RATIO 22.4 (10-20); CALCIUM 9.1 mg/dl (8.5-10.1); CREATININE 1.64 mg/dl (0.60-1.40); MAGNESIUM 2.3 mg/dl (1.8-2.4); POTASSIUM 3.9 mmol/L (3.5-5.1)
[2016-12-22 07:42] VITALS: BP 139/79; PULSE 107; O2SAT 95
[2016-12-22] MEDS: FLINTSTONES COMPLETE CHEWABLE TAB PO SCH (08:44)
[2016-12-22] MEDS: LACTOBACILLUS ACIDOPHILUS (FLORANEX) TAB PO SCH ×2 (08:45→20:25)
[2016-12-22] MEDS: POTASSIUM CHLORIDE 20 MEQ TABCR PO SCH ×2 (08:46→20:25)
[2016-12-22] MEDS: GABAPENTIN 100 MG CAP PO SCH ×3 (08:46→20:25)
[2016-12-22] MEDS: ISOSORBIDE MONONITRATE 60 MG TABCR PO SCH (08:46)
[2016-12-22] MEDS: PANTOprazole SOD 40 MG TAB PO SCH (08:47)
[2016-12-22] MEDS: AMLODIPINE BESYLATE 5 MG TAB PO SCH (08:47)
[2016-12-22] MEDS: METOPROLOL SUCC 50MG EXT REL TAB PO SCH ×2 (08:48→20:25)
[2016-12-22] MEDS: LISINOPRIL 20 MG TAB PO SCH ×2 (08:48→20:24)
[2016-12-22] MEDS: DOCUSATE SODIUM/SENNA 50/8.6MG TAB PO SCH (08:48)
[2016-12-22] MEDS: ALLOPURINOL 300 MG TAB PO SCH (08:49)
[2016-12-22] MEDS: FUROSEMIDE 80 MG TAB PO SCH ×2 (08:49→16:39)
[2016-12-22] MEDS: INSULIN ASPART 100 UNITS/ML 3 ML PEN SC SCH ×4 (09:37→20:47)
[2016-12-22] MEDS: INSULIN GLARGINE SOLOSTAR 100 UNITS/ML 3 ML PEN SC SCH ×2 (09:38→20:48)
--- NOTE | 2016-12-22 10:33 | Cardiology Follow-Up ---
Subjective General Date of Service: Dec 22, 2016. Chief Complaint: CHF; afib Pt evaluation today including: conversation w/ patient, physical exam, chart review, lab review, review of studies, review of inpatient medication list History of Present Illness Patient feeling well this AM. Offers no complaints. Denies complaints of SOB or chest pain. He reports great improvement in edema b/l. No orthopnea, PND. Legs wrapped. Allergies Coded Allergies: NO KNOWN DRUG ALLERGIES (Verified Allergy, Unknown, ., 12/14/16) Social History Smoking Status: Never Smoker Hx Tobacco Use In Past Year?: No Hx Alcohol Use - Type And Amou: No Hx Substance Use - Type And Am: No Problem List Medical Problems: (1) A-fib Status: Acute (2) Abnormal ECG Status: Acute (3) Acute electrocardiogram changes Status: Acute (4) Acute electrocardiogram changes Status: Acute (5) Acute kidney injury Status: Acute (6) Anemia Status: Acute (7) Atrial fibrillation with RVR Status: Acute (8) CHF (congestive heart failure) Status: Acute (9) Dysphagia Status: Acute (10) Edema Status: Acute (11) Hyperglycemia Status: Acute (12) Hypoglycemia Status: Acute (13) Hypoglycemia Status: Acute (14) Hypoglycemia Status: Acute (15) Hypoxia Status: Acute (16) Insulin dependent diabetes mellitus Status: Acute (17) Jaw pain Status: Acute (18) NSTEMI (non-ST elevated myocardial infarction) Status: Acute (19) Right leg pain Status: Acute (20) Supratherapeutic INR Status: Acute Review of Systems Respiratory: + dyspnea at rest, No cough, No sputum, No wheezing, No hemoptysis Cardiac: + edema, No chest pain, No orthopnea, No PND, No palpitations Physical Exam Vital Signs Last Vital Signs Documentation Date Time Temp Pulse Resp B/P (MAP) Pulse Ox O2 Delivery O2 Flow Rate FiO2 12/22/16 07:42 107 14 139/79 (99) 95 12/22/16 00:00 CPAP 12/21/16 23:30 36.3 12/21/16 21:56 2.0 Physical Exam Constitutional: General Apperance: overweight Level of Distress: NAD, chronically ill Psychiatric: Mental Status: active & alert Orientation: to time, to place, to person Eyes: Pupils: PERRLA Lungs: Respiratory effort: no dyspnea Auscultation: no wheezing, no rales/crackles, no rhonchi, deminished air movement Cardiovascular: Heart Auscultation: no murmurs, no rubs, no gallops, irregular rate rhythm Abdomen: Inspection & Palpation: soft, non-distended Extremities: edema (trace- 1+ b/l edema. compression stockings/wraps in place) Assessment and Plan Assessment and Plan 81-year-old male 1. Acute on chronic decompensated systolic HF exacerbation -symptoms improved with IV diuresis 2. Atrial fibrillation with RVR -rates improved, continue metoprolol as prescribed -Heparin to Coumadin. -INR 1.8 today 3. Hypertension - BP stable 4. Ischemic heart disease - continue current therapies. Case discussed with Dr. Glover. Will follow. Patient seen and examined, clinically improved since admission,now with stable compensation. Continue current medications CPAP nocturnally a trinidad Glover MD Laboratory Results Last 24 Hours Test 12/21/16 11:09 12/21/16 16:39 12/21/16 21:34 12/22/16 06:35 Bedside Glucose 163 mg/dl 218 mg/dl 243 mg/dl White Blood Count 7.54 K/uL Red Blood Count 3.66 M/uL Hemoglobin 10.9 g/dL Hematocrit 34.2 % Mean Corpuscular Volume 93.4 fL Mean Corpuscular Hemoglobin 29.8 pg Mean Corpuscular Hemoglobin Concent 31.9 g/dl RDW Standard Deviation 54.7 fL RDW Coefficient of Variation 15.9 % Platelet Count 179 K/uL Mean Platelet Volume 9.3 fL Prothrombin Time 20.3 SECONDS Prothromb Time International Ratio 1.8 Activated Partial Thromboplast Time 60.9 SECONDS Partial Thromboplastin Ratio 2.3 Sodium Level 137 mmol/L Potassium Level 3.9 mmol/L Chloride Level 103 mmol/L Carbon Dioxide Level 26 mmol/L Anion Gap 8.0 mmol/L Blood Urea Nitrogen 37 mg/dl Creatinine 1.64 mg/dl Est Creatinine Clear Calc Drug Dose 51.5 ml/min Estimated GFR () 44.8 Estimated GFR (Non- 38.6 BUN/Creatinine Ratio 22.4 Random Glucose 162 mg/dl Calcium Level 9.1 mg/dl Magnesium Level 2.3 mg/dl
[2016-12-22 11:50] VITALS: BP 130/65; PULSE 79; TEMP 36.7; O2SAT 95
[2016-12-22] MEDS: HEPARIN 25000 UNIT/ D5W 500 ML (PHARMACY PREPARED) IV PRN ×2 (12:45)
--- NOTE | 2016-12-22 15:24 | Progress Note ---
Internal Med Progress Note Date of Service: Dec 22, 2016. Provider Documentation: SUBJECTIVE: Seen and examined at bedside Feels well No new complaints Denies chest pain, SOB, abd pain, dizziness On Heparin ggt Weight down by 10 kg since admission No other complaints OBJECTIVE: Vital Signs-as noted below Physical Exam: General Appearance:Moderately built and nourished, no apparent distress Head: normocephalic, Atraumatic Eyes: normal inspection, EOMI, PERRL Neck: supple, Trachea midline Respiratory/Chest: Decreased breath sounds, CTA Cardiovascular: S1, S2, No murmur Abdomen/GI:Soft, Non tender, Bowel sounds present Extremities/Musculoskelatal:normal inspection, B/L LE edema Neurologic/Psych:AAOX3, grossly no focal neurological deficits Skin: normal color, warm Lab data as noted below. ASSESSMENT & PLAN: Patient is an 81yr male who presents with a rapid atrial fibrillation with shortness of breath and hyperglycemia. Afib with RVR: Presented with SOB INR sub therapeutic at 1.2 on presentation Continue IV Heparin and Coumadin continued Appreciate Cardiology input Elevated Troponin is secondary to Afib-doubt any ACS Rate controlled BB has been adjusted Encourage to use BIPAP Monitor INR:1.8 today Acute on Chronic Systolic Heart Failure Presented with Shortness of breath, weight gain EF 40%. S/P IV Lasix 40 mg TID Continue lisinopril 20 mg Fluid restriction Monitor I&O, weight Lasix has been changed to 80 mg PO BID Monitor renal function Continue current medications Improving clinically Continue current management Cr slightly up secondary to diuretics DM II A1C; 8.3 continue Insulin Pharmacy consult and SSI Blood sugar is controlled H/O gout. Continue allopurinol. H/O Coronary artery disease. Continue his lisinopril and beta leah. The patient is on Coumadin. INR not yet therapeutic-continue 12.5 mg Coumadin daily Obstructive sleep apnea: Continue CPAP at bedtime. Since he is sleeping in the chair, he is not using CPAP at home but ok to use in the hospital. Has been using CPAP during hospital stay GERD: Continue PPI. CKD III: baseline creatinine around 1.5. Monitor renal function and electrolytes Cr slightly up secondary to diuretics Hyperlipidemia. Continue Crestor. Hypertension. Continue his lisinopril and metoprolol, added NORVASC Monitor Lower Extremity Wounds Follows with wound clinic. Wound care consult DVT Px: Currently on IV heparin and coumadin Vital Signs: Date Time Temp Pulse Resp B/P (MAP) Pulse Ox O2 Delivery O2 Flow Rate FiO2 12/22/16 11:50 36.7 79 14 130/65 (86) 95 12/22/16 08:45 Room Air 12/22/16 07:42 107 14 139/79 (99) 95 12/22/16 00:00 CPAP 12/21/16 23:30 36.3 76 18 130/75 (93) 99 BiPAP 12/21/16 21:56 76 94 2.0 12/21/16 16:00 Room Air Lab Results: Results Past 24 Hours Test 12/21/16 16:39 12/21/16 21:34 12/22/16 06:35 12/22/16 07:54 Range/Units Bedside Glucose 218 243 153 70-99 mg/dl White Blood Count 7.54 4.8-10.8 K/uL Red Blood Count 3.66 4.7-6.1 M/uL Hemoglobin 10.9 14.0-18.0 g/dL Hematocrit 34.2 42-52 % Mean Corpuscular Volume 93.4 80-100 fL Mean Corpuscular Hemoglobin 29.8 25-34 pg Mean Corpuscular Hemoglobin Concent 31.9 32-36 g/dl RDW Standard Deviation 54.7 36.4-46.3 fL RDW Coefficient of Variation 15.9 11.5-14.5 % Platelet Count 179 130-400 K/uL Mean Platelet Volume 9.3 7.4-10.4 fL Prothrombin Time 20.3 9.0-12.0 SECONDS Prothromb Time International Ratio 1.8 0.9-1.1 Activated Partial Thromboplast Time 60.9 21.0-31.0 SECONDS Partial Thromboplastin Ratio 2.3 Sodium Level 137 136-145 mmol/L Potassium Level 3.9 3.5-5.1 mmol/L Chloride Level 103 98-107 mmol/L Carbon Dioxide Level 26 21-32 mmol/L Anion Gap 8.0 3-11 mmol/L Blood Urea Nitrogen 37 7-18 mg/dl Creatinine 1.64 0.60-1.40 mg/dl Est Creatinine Clear Calc Drug Dose 51.5 ml/min Estimated GFR () 44.8 Estimated GFR (Non- 38.6 BUN/Creatinine Ratio 22.4 10-20 Random Glucose 162 70-99 mg/dl Calcium Level 9.1 8.5-10.1 mg/dl Magnesium Level 2.3 1.8-2.4 mg/dl Test 12/22/16 11:52 Range/Units Bedside Glucose 207 70-99 mg/dl
[2016-12-22 15:27] VITALS: BP 102/63; PULSE 78; TEMP 37.1; O2SAT 95
[2016-12-22] MEDS: WARFARIN TAB 10 MG, WARFARIN TAB 2.5 MG PO SCH ×2 (16:38)
[2016-12-22] MEDS: ROSUVASTATIN CALCIUM 10 MG TAB PO SCH (20:25)
[2016-12-22] MEDS: MIRTAZAPINE TAB 15 MG TAB PO SCH (20:26)
[2016-12-22 22:25] VITALS: O2SAT 95
[2016-12-22 23:44] VITALS: BP 129/70; PULSE 94; TEMP 36.8; O2SAT 98
[2016-12-23] MEDS: HEPARIN 25000 UNIT/ D5W 500 ML (PHARMACY PREPARED) IV PRN ×2 (06:14)
[2016-12-23 06:45] LABS: HEMATOCRIT 33.3 % (42-52); MEAN CELL VOLUME 93.3 fL (80-100); MEAN CORPUSCULAR HEMOGLOBIN 29.7 pg (25-34); MEAN CORPUSCULAR HGB CONC 31.8 g/dl (32-36); MEAN PLATELET VOLUME 9.1 fL (7.4-10.4); PLATELET COUNT 182 K/uL (130-400); RED BLOOD COUNT 3.57 M/uL (4.7-6.1); WHITE BLOOD COUNT 8.18 K/uL (4.8-10.8)
[2016-12-23 07:11] LABS: PARTIAL THROMBOPLASTIN RATIO 2.2; PROTHROMBIN TIME (PATIENT) 22.1 SECONDS (9.0-12.0)
[2016-12-23 07:13] LABS: BUN/CREATININE RATIO 22.1 (10-20); CREATININE 1.8 mg/dl (0.60-1.40); MAGNESIUM 2.2 mg/dl (1.8-2.4)
[2016-12-23 08:06] VITALS: BP 133/84; PULSE 73; TEMP 36.8; O2SAT 98
[2016-12-23] MEDS: DOCUSATE SODIUM/SENNA 50/8.6MG TAB PO SCH (08:08)
[2016-12-23] MEDS: PANTOprazole SOD 40 MG TAB PO SCH (08:08)
[2016-12-23] MEDS: METOPROLOL SUCC 50MG EXT REL TAB PO SCH ×2 (08:08→20:23)
[2016-12-23] MEDS: ISOSORBIDE MONONITRATE 60 MG TABCR PO SCH (08:09)
[2016-12-23] MEDS: ALLOPURINOL 300 MG TAB PO SCH (08:09)
[2016-12-23] MEDS: FUROSEMIDE 80 MG TAB PO SCH ×2 (08:09→17:47)
[2016-12-23] MEDS: AMLODIPINE BESYLATE 5 MG TAB PO SCH (08:09)
[2016-12-23] MEDS: FLINTSTONES COMPLETE CHEWABLE TAB PO SCH (08:09)
[2016-12-23] MEDS: LISINOPRIL 20 MG TAB PO SCH ×2 (08:09→20:23)
[2016-12-23] MEDS: LACTOBACILLUS ACIDOPHILUS (FLORANEX) TAB PO SCH ×2 (08:10→20:21)
[2016-12-23] MEDS: POTASSIUM CHLORIDE 20 MEQ TABCR PO SCH ×2 (08:10→20:23)
[2016-12-23] MEDS: GABAPENTIN 100 MG CAP PO SCH ×3 (08:10→20:22)
[2016-12-23] MEDS: INSULIN ASPART 100 UNITS/ML 3 ML PEN SC SCH ×4 (08:50→20:31)
[2016-12-23] MEDS: INSULIN GLARGINE SOLOSTAR 100 UNITS/ML 3 ML PEN SC SCH ×2 (08:52→20:28)
--- NOTE | 2016-12-23 15:15 | Progress Note ---
Internal Med Progress Note Date of Service: Dec 23, 2016. Provider Documentation: SUBJECTIVE: Seen and examined at bedside Feels tired No new complaints Denies chest pain, SOB, abd pain, dizziness INR therapeutic, Will DC Heparin ggt No other complaints Cr slightly up OBJECTIVE: Vital Signs-as noted below Physical Exam: General Appearance:Moderately built and nourished, no apparent distress Head: normocephalic, Atraumatic Eyes: normal inspection, EOMI, PERRL Neck: supple, Trachea midline Respiratory/Chest: Decreased breath sounds, CTA Cardiovascular: S1, S2, No murmur Abdomen/GI:Soft, Non tender, Bowel sounds present Extremities/Musculoskelatal:normal inspection, B/L LE edema Neurologic/Psych:AAOX3, grossly no focal neurological deficits Skin: normal color, warm Lab data as noted below. ASSESSMENT & PLAN: Patient is an 81yr male who presents with a rapid atrial fibrillation with shortness of breath and hyperglycemia. Afib with RVR: Presented with SOB INR sub therapeutic at 1.2 on presentation DC IV Heparin ggt Appreciate Cardiology input Elevated Troponin is secondary to Afib-doubt any ACS Rate controlled BB has been adjusted Encourage to use BIPAP Monitor INR:2.0 today Continue coumadin Acute on Chronic Systolic Heart Failure Presented with Shortness of breath, weight gain EF 40%. S/P IV Lasix 40 mg TID Continue lisinopril 20 mg Fluid restriction Monitor I&O, weight Lasix has been changed to 80 mg PO BID Monitor renal function Continue current medications Improving clinically Continue current management Cr: 1.8, slightly up secondary to diuretics Monitor renal function Feels tired and not ready for discharge yet DM II A1C; 8.3 continue Insulin Pharmacy consult and SSI Blood sugar is controlled H/O gout. Continue allopurinol. H/O Coronary artery disease. Continue his lisinopril and beta leah. INR now therapeutic-continue Coumadin Obstructive sleep apnea: Continue CPAP at bedtime. Since he is sleeping in the chair, he is not using CPAP at home but ok to use in the hospital. Has been using CPAP during hospital stay GERD: Continue PPI. CKD III: baseline creatinine around 1.5. Monitor renal function and electrolytes Cr slightly up secondary to diuretics Hyperlipidemia. Continue Crestor. Hypertension. Continue his lisinopril and metoprolol, added NORVASC Monitor Lower Extremity Wounds Follows with wound clinic. Wound care consult DVT Px: On coumadin INR therapeutic Disposition: Patient prefers to be discharged home with Home health and refuses rehab/SNF placement PT/OT Plan to discharge home with home health when stable Vital Signs: Date Time Temp Pulse Resp B/P (MAP) Pulse Ox O2 Delivery O2 Flow Rate FiO2 12/23/16 08:30 Room Air 12/23/16 08:06 36.8 73 20 133/84 (100) 98 BiPAP 12/23/16 00:00 Room Air 12/22/16 23:44 36.8 94 20 129/70 (89) 98 CPAP 12/22/16 22:25 95 2.0 12/22/16 16:00 Room Air 12/22/16 15:27 37.1 78 20 102/63 (76) 95 Room Air Lab Results: Results Past 24 Hours Test 12/22/16 16:54 12/22/16 19:38 12/23/16 06:27 12/23/16 07:54 Range/Units Bedside Glucose 160 180 141 70-99 mg/dl White Blood Count 8.18 4.8-10.8 K/uL Red Blood Count 3.57 4.7-6.1 M/uL Hemoglobin 10.6 14.0-18.0 g/dL Hematocrit 33.3 42-52 % Mean Corpuscular Volume 93.3 80-100 fL Mean Corpuscular Hemoglobin 29.7 25-34 pg Mean Corpuscular Hemoglobin Concent 31.8 32-36 g/dl RDW Standard Deviation 54.7 36.4-46.3 fL RDW Coefficient of Variation 15.9 11.5-14.5 % Platelet Count 182 130-400 K/uL Mean Platelet Volume 9.1 7.4-10.4 fL Prothrombin Time 22.1 9.0-12.0 SECONDS Prothromb Time International Ratio 2.0 0.9-1.1 Activated Partial Thromboplast Time 58.3 21.0-31.0 SECONDS Partial Thromboplastin Ratio 2.2 Sodium Level 136 136-145 mmol/L Potassium Level 4.0 3.5-5.1 mmol/L Chloride Level 103 98-107 mmol/L Carbon Dioxide Level 25 21-32 mmol/L Anion Gap 8.0 3-11 mmol/L Blood Urea Nitrogen 40 7-18 mg/dl Creatinine 1.80 0.60-1.40 mg/dl Est Creatinine Clear Calc Drug Dose 47.1 ml/min Estimated GFR () 40.0 Estimated GFR (Non- 34.5 BUN/Creatinine Ratio 22.1 10-20 Random Glucose 139 70-99 mg/dl Calcium Level 9.0 8.5-10.1 mg/dl Magnesium Level 2.2 1.8-2.4 mg/dl Test 12/23/16 11:58 Range/Units Bedside Glucose 147 70-99 mg/dl
[2016-12-23 16:00] VITALS: O2SAT 98
[2016-12-23] MEDS: WARFARIN TAB 10 MG, WARFARIN TAB 2.5 MG PO SCH ×2 (16:01)
[2016-12-23 16:11] VITALS: BP 144/72; PULSE 72; TEMP 36.8; O2SAT 95
[2016-12-23 20:20] VITALS: BP 114/66; PULSE 71
[2016-12-23] MEDS: MIRTAZAPINE TAB 15 MG TAB PO SCH (20:33)
[2016-12-23] MEDS: ROSUVASTATIN CALCIUM 10 MG TAB PO SCH (20:33)
[2016-12-23 23:45] VITALS: O2SAT 96
[2016-12-24] VITALS (8 sets, daily range): BP systolic 108–143; BP diastolic 61–83; PULSE 62–92; TEMP 36.1–37.1; O2SAT 95–99
[2016-12-24 07:21] LABS: PARTIAL THROMBOPLASTIN RATIO 1.5; PROTHROMBIN TIME (PATIENT) 22.4 SECONDS (9.0-12.0)
[2016-12-24 07:52] LABS: CALCIUM 9.4 mg/dl (8.5-10.1); CREATININE 1.75 mg/dl (0.60-1.40); MAGNESIUM 2.3 mg/dl (1.8-2.4)
[2016-12-24] MEDS: GABAPENTIN 100 MG CAP PO SCH ×3 (08:34→20:23)
[2016-12-24] MEDS: LISINOPRIL 20 MG TAB PO SCH ×2 (08:35→20:26)
[2016-12-24] MEDS: METOPROLOL SUCC 50MG EXT REL TAB PO SCH ×2 (08:35→20:26)
[2016-12-24] MEDS: PANTOprazole SOD 40 MG TAB PO SCH (08:35)
[2016-12-24] MEDS: ALLOPURINOL 300 MG TAB PO SCH (08:35)
[2016-12-24] MEDS: DOCUSATE SODIUM/SENNA 50/8.6MG TAB PO SCH (08:35)
[2016-12-24] MEDS: FUROSEMIDE 80 MG TAB PO SCH ×2 (08:36→16:17)
[2016-12-24] MEDS: LACTOBACILLUS ACIDOPHILUS (FLORANEX) TAB PO SCH ×2 (08:36→20:23)
[2016-12-24] MEDS: ISOSORBIDE MONONITRATE 60 MG TABCR PO SCH (08:36)
[2016-12-24] MEDS: POTASSIUM CHLORIDE 20 MEQ TABCR PO SCH ×2 (08:36→20:23)
[2016-12-24] MEDS: AMLODIPINE BESYLATE 5 MG TAB PO SCH (08:36)
[2016-12-24] MEDS: FLINTSTONES COMPLETE CHEWABLE TAB PO SCH (08:36)
[2016-12-24] MEDS: INSULIN ASPART 100 UNITS/ML 3 ML PEN SC SCH ×4 (08:39→20:31)
[2016-12-24] MEDS: INSULIN GLARGINE SOLOSTAR 100 UNITS/ML 3 ML PEN SC SCH ×2 (08:39→20:32)
--- NOTE | 2016-12-24 15:07 | Progress Note ---
Internal Med Progress Note Date of Service: Dec 24, 2016. Provider Documentation: SUBJECTIVE: Seen and examined at bedside Doing well today States could not be discharged today as hospice care consultant unavailable No new complaints Denies chest pain, SOB, abd pain, dizziness INR therapeutic Cr slightly better OBJECTIVE: Vital Signs-as noted below Physical Exam: General Appearance:Moderately built and nourished, no apparent distress Head: normocephalic, Atraumatic Eyes: normal inspection, EOMI, PERRL Neck: supple, Trachea midline Respiratory/Chest: Decreased breath sounds, CTA Cardiovascular: S1, S2, No murmur Abdomen/GI:Soft, Non tender, Bowel sounds present Extremities/Musculoskelatal:normal inspection, B/L LE edema Neurologic/Psych:AAOX3, grossly no focal neurological deficits Skin: normal color, warm Lab data as noted below. ASSESSMENT & PLAN: Patient is an 81yr male who presents with a rapid atrial fibrillation with shortness of breath and hyperglycemia. Afib with RVR: Presented with SOB INR sub therapeutic at 1.2 on presentation DC IV Heparin ggt Appreciate Cardiology input Elevated Troponin is secondary to Afib-doubt any ACS Rate controlled BB has been adjusted Encourage to use BIPAP Monitor INR:2.0 today Continue coumadin Acute on Chronic Systolic Heart Failure Presented with Shortness of breath, weight gain EF 40%. S/P IV Lasix 40 mg TID Continue lisinopril 20 mg Fluid restriction Monitor I&O, weight Lasix has been changed to 80 mg PO BID Monitor renal function Continue current medications Improving clinically Continue current management Cr: 1.8>>>1.75, slightly better Monitor renal function DM II A1C; 8.3 continue Insulin Pharmacy consult and SSI Blood sugar is controlled H/O gout. Continue allopurinol. H/O Coronary artery disease. Continue his lisinopril and beta leah. INR now therapeutic-continue Coumadin Obstructive sleep apnea: Continue CPAP at bedtime. Since he is sleeping in the chair, he is not using CPAP at home but ok to use in the hospital. Has been using CPAP during hospital stay GERD: Continue PPI. CKD III: baseline creatinine around 1.5. Monitor renal function and electrolytes Cr slightly up secondary to diuretics Hyperlipidemia. Continue Crestor. Hypertension. Continue his lisinopril and metoprolol, added NORVASC Monitor Lower Extremity Wounds Follows with wound clinic. Wound care consult DVT Px: On coumadin INR therapeutic Disposition: Patient prefers to be discharged home with Home health and refuses rehab/SNF placement PT/OT Plan to discharge home with home health tomorrow if stable Vital Signs: Date Time Temp Pulse Resp B/P (MAP) Pulse Ox O2 Delivery O2 Flow Rate FiO2 12/24/16 08:00 99 Nasal Cannula 2.0 12/24/16 07:44 36.1 74 20 143/83 (103) 99 BiPAP 2.0 12/24/16 00:33 37.1 92 20 128/65 (86) 96 Room Air 12/24/16 00:00 CPAP 12/23/16 23:45 96 2.0 12/23/16 20:20 71 114/66 (82) 12/23/16 16:11 36.8 72 20 144/72 (96) 95 Room Air 12/23/16 16:00 98 Room Air CPAP Lab Results: Results Past 24 Hours Test 12/23/16 17:16 12/23/16 20:30 12/24/16 06:56 12/24/16 07:44 Range/Units Bedside Glucose 208 155 92 70-99 mg/dl Prothrombin Time 22.4 9.0-12.0 SECONDS Prothromb Time International Ratio 2.0 0.9-1.1 Activated Partial Thromboplast Time 39.1 21.0-31.0 SECONDS Partial Thromboplastin Ratio 1.5 Sodium Level 138 136-145 mmol/L Potassium Level 4.0 3.5-5.1 mmol/L Chloride Level 103 98-107 mmol/L Carbon Dioxide Level 26 21-32 mmol/L Anion Gap 9.0 3-11 mmol/L Blood Urea Nitrogen 44 7-18 mg/dl Creatinine 1.75 0.60-1.40 mg/dl Est Creatinine Clear Calc Drug Dose 48.6 ml/min Estimated GFR () 41.4 Estimated GFR (Non- 35.7 BUN/Creatinine Ratio 25.0 10-20 Random Glucose 89 70-99 mg/dl Calcium Level 9.4 8.5-10.1 mg/dl Magnesium Level 2.3 1.8-2.4 mg/dl Test 12/24/16 11:52 Range/Units Bedside Glucose 121 70-99 mg/dl
[2016-12-24] MEDS: WARFARIN TAB 10 MG, WARFARIN TAB 2.5 MG PO SCH ×2 (16:19)
[2016-12-24] MEDS: ROSUVASTATIN CALCIUM 10 MG TAB PO SCH (20:26)
[2016-12-24] MEDS: MIRTAZAPINE TAB 15 MG TAB PO SCH (20:28)
[2016-12-25 06:45] LABS: PARTIAL THROMBOPLASTIN RATIO 1.6; PROTHROMBIN TIME (PATIENT) 21.6 SECONDS (9.0-12.0)
[2016-12-25 06:54] LABS: BUN/CREATININE RATIO 27.3 (10-20); CALCIUM 9.3 mg/dl (8.5-10.1); CREATININE 1.72 mg/dl (0.60-1.40); POTASSIUM 4.1 mmol/L (3.5-5.1)
[2016-12-25 07:20] VITALS: BP 165/79; PULSE 63; TEMP 36.7; O2SAT 97
[2016-12-25] MEDS: PANTOprazole SOD 40 MG TAB PO SCH (08:26)
[2016-12-25] MEDS: METOPROLOL SUCC 50MG EXT REL TAB PO SCH (08:26)
[2016-12-25] MEDS: LACTOBACILLUS ACIDOPHILUS (FLORANEX) TAB PO SCH (08:26)
[2016-12-25] MEDS: FUROSEMIDE 80 MG TAB PO SCH (08:26)
[2016-12-25] MEDS: ALLOPURINOL 300 MG TAB PO SCH (08:26)
[2016-12-25] MEDS: LISINOPRIL 20 MG TAB PO SCH (08:27)
[2016-12-25] MEDS: AMLODIPINE BESYLATE 5 MG TAB PO SCH (08:27)
[2016-12-25] MEDS: DOCUSATE SODIUM/SENNA 50/8.6MG TAB PO SCH (08:28)
[2016-12-25] MEDS: FLINTSTONES COMPLETE CHEWABLE TAB PO SCH (08:28)
[2016-12-25] MEDS: POTASSIUM CHLORIDE 20 MEQ TABCR PO SCH (08:28)
[2016-12-25] MEDS: ISOSORBIDE MONONITRATE 60 MG TABCR PO SCH (08:29)
[2016-12-25] MEDS: GABAPENTIN 100 MG CAP PO SCH (08:29)
--- NOTE | 2016-12-25 08:30 | Progress Note ---
Internal Med Progress Note Date of Service: Dec 25, 2016. Provider Documentation: SUBJECTIVE: Seen and examined at bedside Feels much better Denies chest pain, SOB, abd pain, dizziness INR therapeutic Cr levels improving Plan to discharge home today OBJECTIVE: Vital Signs-as noted below Physical Exam: General Appearance:Moderately built and nourished, no apparent distress Head: normocephalic, Atraumatic Eyes: normal inspection, EOMI, PERRL Neck: supple, Trachea midline Respiratory/Chest: Decreased breath sounds, CTA Cardiovascular: S1, S2, No murmur Abdomen/GI:Soft, Non tender, Bowel sounds present Extremities/Musculoskelatal:normal inspection, B/L LE edema Neurologic/Psych:AAOX3, grossly no focal neurological deficits Skin: normal color, warm Lab data as noted below. ASSESSMENT & PLAN: Patient is an 81yr male who presents with a rapid atrial fibrillation with shortness of breath and hyperglycemia. Afib with RVR: Presented with SOB INR sub therapeutic at 1.2 on presentation DC IV Heparin ggt Appreciate Cardiology input Elevated Troponin is secondary to Afib-doubt any ACS Rate controlled BB has been adjusted Encouraged to use BIPAP at home as well Monitor INR:2.0 today Continue Coumadin Acute on Chronic Systolic Heart Failure Presented with Shortness of breath, weight gain EF 40%. S/P IV Lasix 40 mg TID Continue lisinopril 20 mg Fluid restriction Monitor I&O, weight Lasix has been changed to 80 mg PO BID Monitor renal function Continue current medications Improving clinically Continue current management Cr: 1.8>>>1.75>>.1.72 Monitor renal function DM II A1C; 8.3 continue Insulin Pharmacy consult and SSI Blood sugar is controlled H/O gout. Continue allopurinol. H/O Coronary artery disease. Continue his lisinopril and beta leah. INR now therapeutic-continue Coumadin Obstructive sleep apnea: Continue CPAP at bedtime. Since he is sleeping in the chair, he is not using CPAP at home but ok to use in the hospital. Has been using CPAP during hospital stay GERD: Continue PPI. CKD III: baseline creatinine around 1.5. Monitor renal function and electrolytes Cr levels improving Hyperlipidemia. Continue Crestor. Hypertension. Continue his lisinopril and metoprolol, added NORVASC Monitor Lower Extremity Wounds Follows with wound clinic. Wound care consult DVT Px: On coumadin INR therapeutic Disposition: Patient prefers to be discharged home with Home health and refuses rehab/SNF placement PT/OT Plan to discharge home with home health today Follow up with your Primary Care Physician on 12/27/16 at 11.45 am Follow up with your reed or wind instrument tuner in 2-4 weeks as advised Take 12.5mg coumadin today (01/24/17) and tomorrow (01/25/17) Get PT/INR checked on 01/26/17 and follow up with coumadin clinic for further coumadin dosage as advised Seek immediate medical attention if your symptoms reoccur or worsen Vital Signs: Date Time Temp Pulse Resp B/P (MAP) Pulse Ox O2 Delivery O2 Flow Rate FiO2 12/25/16 07:20 36.7 63 20 165/79 (107) 97 BiPAP 12/25/16 00:00 Room Air 12/24/16 23:31 36.9 67 18 109/70 (83) 95 Room Air 12/24/16 23:22 64 97 2.0 12/24/16 20:24 62 119/61 (80) 12/24/16 19:55 Room Air 12/24/16 15:46 36.9 86 20 108/66 (80) 96 Room Air 12/24/16 15:30 99 Nasal Cannula 2.0 Lab Results: Results Past 24 Hours Test 12/24/16 11:52 12/24/16 16:42 12/24/16 19:58 12/25/16 05:56 Range/Units Bedside Glucose 121 145 191 70-99 mg/dl Prothrombin Time 21.6 9.0-12.0 SECONDS Prothromb Time International Ratio 2.0 0.9-1.1 Activated Partial Thromboplast Time 40.4 21.0-31.0 SECONDS Partial Thromboplastin Ratio 1.6 Sodium Level 137 136-145 mmol/L Potassium Level 4.1 3.5-5.1 mmol/L Chloride Level 103 98-107 mmol/L Carbon Dioxide Level 27 21-32 mmol/L Anion Gap 8.0 3-11 mmol/L Blood Urea Nitrogen 47 7-18 mg/dl Creatinine 1.72 0.60-1.40 mg/dl Est Creatinine Clear Calc Drug Dose 49.3 ml/min Estimated GFR () 42.3 Estimated GFR (Non- 36.5 BUN/Creatinine Ratio 27.3 10-20 Random Glucose 106 70-99 mg/dl Calcium Level 9.3 8.5-10.1 mg/dl Test 12/25/16 07:47 Range/Units Bedside Glucose 105 70-99 mg/dl
[2016-12-25] MEDS ORDERED: TPRSR50 PO (08:35)
[2016-12-25] MEDS ORDERED: IMDSR60 PO (08:35)
[2016-12-25] MEDS: INSULIN ASPART 100 UNITS/ML 3 ML PEN SC SCH (08:35)
[2016-12-25] MEDS: INSULIN GLARGINE SOLOSTAR 100 UNITS/ML 3 ML PEN SC SCH (08:36)
--- NOTE | 2016-12-25 08:37 | Discharge Summary ---
Discharge Summary Date of Service Dec 25, 2016. Discharge Summary Admission Date: Dec 14, 2016 at 20:03 Discharge Date: Dec 25, 2016 Discharge Disposition: Home with services Principal Diagnosis: Afib RVR, CHF Exacerbation Procedures: CXR: : Pulmonary edema slightly increased in prominence compared to the prior exam ECHO: * The left ventricle is normal in size. * There is moderate concentric left ventricular hypertrophy. * The inferior and posterior are severely hypokinetic at the base and midlevels as is the anterior apex The remaining left ventricular wall segments are hypokinetic. * Ejection Fraction = 30-35%. * Aortic valve sclerosis moderate, without significant aortic valvular stenosis. * The inferior vena cava is moderately dilated. Consultations: Cardiology Pending Studies/Follow-Up: Follow up with your Primary Care Physician on 12/27/16 at 11.45 am Follow up with your resident program specialist in 2-4 weeks as advised Take 12.5mg coumadin today (01/24/17) and tomorrow (01/25/17) Get PT/INR checked on 01/26/17 and follow up with coumadin clinic for further coumadin dosage as advised Seek immediate medical attention if your symptoms reoccur or worsen Medication Reconciliation New Medications: Isosorbide Mononitrate (Isosorbide Mononitrate ER) 60 Mg Tab 60 MG PO QAM for 30 Days, #30 TAB 1 Refill Metoprolol Succinate (Metoprolol Succinate ER) 50 Mg Tabcr 50 MG PO BID for 30 Days, #60 EA 1 Refill Continued Medications: Acetaminophen Tab (Tylenol) 325 Mg Tab 650 MG PO Q6H PRN for Pain or Fever, TAB Albuterol Hfa (Ventolin Hfa) 200 Puffs/09136 Mcg Aers 1-2 PUFFS INH Q6H PRN for SOB/Wheezing, #1 INHALER Allopurinol (Zyloprim) 300 Mg Tab 300 MG PO QAM, TAB Amlodipine (Norvasc) 5 Mg Tab 5 MG PO DAILY, TAB Cyclobenzaprine Hcl (Flexeril) 10 Mg Tab 10 MG PO TID PRN for Muscle Spasms, #21 TAB Ergocalciferol (Vitamin D2) Unknown Strength Tab 00194 UNITS PO MONTHLY Furosemide (Furosemide) 80 Mg Tab 80 MG PO BID Gabapentin (Gabapentin) 100 Mg Cap 100 MG PO TID, #30 Hydrocodone/Acetaminophen 5MG/325MG ([place] 5MG/325MG) Tab 1 TABLET PO TID PRN for Pain, #10 TAB Insulin Aspart 70/30 (Novolog Mix 70/30) Susp 55 UNITS SC QAM, BTL Insulin Aspart 70/30 (Novolog Mix 70/30) Susp 45 UNITS SC QPM Lactobacillus Acidophilus (Lactinex) Tab 1 TAB PO BID, TAB Lisinopril (Zestril) 20 Mg Tab 20 MG PO BID, TAB Mirtazapine Soltab (Remeron Soltab) 15 Mg Soltab 15 MG PO HS, TAB Nitroglycerin (Nitrostat) 0.4 Mg Tab 0.4 MG UT PRN PRN for Chest Pain Omeprazole (Prilosec) 20 Mg Capcr 20 MG PO QAM, CAP Potassium Ext Rel (Klor-Con) 20 Meq Tabcr 20 MEQ PO BID, TAB Prednisone (Prednisone) 5 Mg Tab 5 MG PO DAILY, TAB Rosuvastatin Calcium (Crestor) 10 Mg Tab 10 MG PO QPM, TAB Senna/Docusate Sod (Senokot S) 1 Tab Tab 1 TAB PO DAILY, TAB Tramadol (Ultram) 50 Mg Tab 50 MG PO Q6 PRN for Pain, TAB Warfarin Sod (Coumadin) 10 Mg Tab 10 MG PO UNKNOWN PT SAID TODAY HE'S SUPPOSED TOTAKE 15MG, THEN 10 TOMORROW Discontinued Medications: Metoprolol Tartrate (Lopressor) 25 Mg Tab 25 MG PO BID, #30 TAB 2 Refills Admission Information HPI (per Admitting provider): CHIEF COMPLAINT: Shortness of breath and palpitations. HISTORY OF PRESENT ILLNESS: This is an 81-year-old male with past medical history significant for chronic systolic heart failure secondary to ischemic cardiomyopathy with EF of 40%; CAD, status post CABG; hypertension; hyperlipidemia; atrial fibrillation, on Coumadin; diabetes type 2, insulin requiring; chronic kidney disease, baseline creatinine around 1.5; chronic anemia with baseline hemoglobin of 9, sleep apnea, gout, history of MRSA, history of decubitus wounds. Currently living in an apartment, presents with high sugar, shortness of breath and palpitations. Since couple of days,patient noticed that his sugars were running high and also noticed palpitations and was getting progressively short of breath, and he came to the ER. Denies any chest pain. He walks with the help of a walker and doing ok with ambulation. He sleeps on a chair. His lower extremity edema is actually getting better. He follows with wound clinic every couple of weeks and they are wrapping his legs and this seems to help with his edema, and his lower extremity wounds were also almost getting healed. Denies any fever, chills, no cough, no headaches, no dizziness, no blurred vision, no runny nose, no sore throat, , no rash. No nausea, no vomiting, no abdominal pain. Appetite is okay. Normal bowel and bladder movements. No blood in the stools or black stools. No blood in the urine, no burning micturition. Currently, he is resting comfortably and hemodynamically stable. Physical Exam (per Admitting): PHYSICAL EXAMINATION: GENERAL: The patient is obese, not in distress. VITAL SIGNS: Temperature 36.5, pulse 111, respiratory rate 20, blood pressure 155/107, oxygen 95% on 5 liters. HEENT: No pallor, no icterus. Pupils are equal, round, and reactive to light. NECK: No JVD, no neck masses, no carotid bruits. CARDIOVASCULAR: S1, S2 heard. Irregular rhythm. Tachycardia. No murmurs. RESPIRATORY SYSTEM: Normal AP diameter. No accessory muscle use. Mild bibasilar crackles. No wheezing. ABDOMEN: Soft, bowel sounds present. Nontender. No distention. CENTRAL NERVOUS SYSTEM: Cranial nerves II-XII grossly intact. Nonfocal. EXTREMITIES: Bilateral lower extremity edema present, both were wrapped with bandage. Hospital Course Patient is an 81yr male who presents with a rapid atrial fibrillation with shortness of breath and hyperglycemia. Afib with RVR: Presented with SOB INR sub therapeutic at 1.2 on presentation DC IV Heparin ggt Appreciate Cardiology input Elevated Troponin is secondary to Afib-doubt any ACS Rate controlled BB has been adjusted Encouraged to use BIPAP at home as well Monitor INR:2.0 today Continue Coumadin Acute on Chronic Systolic Heart Failure Presented with Shortness of breath, weight gain EF 40%. S/P IV Lasix 40 mg TID Continue lisinopril 20 mg Fluid restriction Monitor I&O, weight Lasix has been changed to 80 mg PO BID Monitor renal function Continue current medications Improving clinically Continue current management Cr: 1.8>>>1.75>>.1.72 Monitor renal function DM II A1C; 8.3 continue Insulin Pharmacy consult and SSI Blood sugar is controlled H/O gout. Continue allopurinol. H/O Coronary artery disease. Continue his lisinopril and beta leah. INR now therapeutic-continue Coumadin Obstructive sleep apnea: Continue CPAP at bedtime. Since he is sleeping in the chair, he is not using CPAP at home but ok to use in the hospital. Has been using CPAP during hospital stay GERD: Continue PPI. CKD III: baseline creatinine around 1.5. Monitor renal function and electrolytes Cr levels improving Hyperlipidemia. Continue Crestor. Hypertension. Continue his lisinopril and metoprolol, added NORVASC Monitor Lower Extremity Wounds Follows with wound clinic. Wound care consult DVT Px: On coumadin INR therapeutic Disposition: Patient prefers to be discharged home with Home health and refuses rehab/SNF placement PT/OT Plan to discharge home with home health today Follow up with your Primary Care Physician on 12/27/16 at 11.45 am Follow up with your resident program specialist in 2-4 weeks as advised Take 12.5mg coumadin today (01/24/17) and tomorrow (01/25/17) Get PT/INR checked on 01/26/17 and follow up with coumadin clinic for further coumadin dosage as advised Seek immediate medical attention if your symptoms reoccur or worsen Total time spent on discharge = 35 minutes This includes examination of the patient, discharge planning, medication reconciliation, and communication with other providers. Discharge Instructions Discharge Instructions Date of Service Dec 25, 2016. Admission Reason for Admission: Rapid Atrial Fibrillation, Sob Discharge Discharge Diagnosis / Problem: Afib RVR, CHF Exacerbation Discharge Goals Goal(s): Decrease discomfort, Improve function Activity Recommendations Activity Limitations: resume your previous activity Exercise/Sports Limitations: as tolerated . Instructions / Follow-Up Instructions / Follow-Up Follow up with your Primary Care Physician on 12/27/16 at 11.45 am Follow up with your resident program specialist in 2-4 weeks as advised Take 12.5mg coumadin today (01/24/17) and tomorrow (01/25/17) Get PT/INR checked on 01/26/17 and follow up with coumadin clinic for further coumadin dosage as advised Seek immediate medical attention if your symptoms reoccur or worsen Call your Primary Care doctor if any of the following symptoms or problems start or get worse: * Shortness of breath or difficulty breathing * Wake up at night short of breath * Chest pain * Cough * Swelling of your hands, feet, or legs * More fatigued or tired with your normal activity * Palpitations - sudden fast heart beats WEIGHT * Weigh yourself every morning after using the bathroom. * Use the same scale. * Wear the same amount of clothing. * Write your weight down on a chart. * Call your Primary Care doctor if you gain more than 2-3 pounds in 1-2 days. MEDICATIONS * Use this discharge instruction sheet for medication instructions. * Take your medications at the time your doctor ordered. * Do not skip a dose of your medicines. * If you miss a dose of medicine, take it as soon as possible, but DO NOT DOUBLE A DOSE. * Read your medicine information when you get home. * Know all of the side effects of your medicine. If in doubt, ask your pharmacist * Call your Primary Care doctor's office if you have any side effects. * Be sure all of your doctors know what medicine and herbs you take (including cold, flu, and herbal medicine). Take the following with you to your follow-up doctor appointments: * Weight Chart * Medication List * List of questions Do not drink excessive alcohol, beer or wine. Current Hospital Diet Patient's current hospital diet: AHA Diet (Heart Healthy), Diabetes Type 2 Diet Discharge Diet Recommended Diet: AHA Diet (Heart Healthy), Diabetes Type 2 Diet Pending Studies Studies pending at discharge: no Laboratory Results Hemoglobin A1c Test 12/15/16 03:57 Range/Units Estimated Average Glucose 192 mg/dl Hemoglobin A1c 8.3 H 4.5-5.6 % Medical Emergencies . Who to Call and When: Call 911 or go to the Emergency Room if: * If at any time you feel your situation is an emergency * You have tightness or pain in your chest that does not go away with rest or Nitroglycerin * You are very short of breath even with rest . Non-Emergent Contact Non-Emergency issues call your: Primary Care Provider, White Kid Buffer Call Non-Emergent contact if: you have a fever, your pain is not controlled, your pain is worsening, your pain is unusual for you, your pain is concerning you, you have any medication questions Seek immediate medical attention if your symptoms reoccur or worsen . . "Provider Documentation" section prepared by Stephan Welch. . VTE Core Measure Inpt VTE Proph given/why not?: Warfarin (Coumadin)
[2016-12-25 10:02] VITALS: BP 165/79; PULSE 63; TEMP 36.7; O2SAT 97
== END 2016-12-25 10:47 | disposition home health service (06) | DRG 291 ==
LOC: EDBD 17:17 → C.EDB 17:18 → C.2T 20:03 → EDBEDREQ 20:11 → ENRESERV 20:23 → C.4E 12-19 13:13
PROVIDERS: ADMIT Internal Medicine; ATTEND Internal Medicine
DX: I13.0 Hypertensive heart and chronic kidney disease with heart failure and stage 1 through stage 4 chronic kidney disease, or unspecified chronic kidney disease (principal); I50.23 Acute on chronic systolic (congestive) heart failure; I48.2 Chronic atrial fibrillation; E11.65 Type 2 diabetes mellitus with hyperglycemia; E11.22 Type 2 diabetes mellitus with diabetic chronic kidney disease; E11.43 Type 2 diabetes mellitus with diabetic autonomic (poly)neuropathy; L89.609 Pressure ulcer of unspecified heel, unspecified stage; I25.5 Ischemic cardiomyopathy; M10.9 Gout, unspecified; I25.10 Atherosclerotic heart disease of native coronary artery without angina pectoris; G47.33 Obstructive sleep apnea (adult) (pediatric); K21.9 Gastro-esophageal reflux disease without esophagitis; N18.3 Chronic kidney disease, stage 3 (moderate); E78.5 Hyperlipidemia, unspecified; I35.8 Other nonrheumatic aortic valve disorders; E66.9 Obesity, unspecified; Z68.38 Body mass index [BMI] 38.0-38.9, adult; Z95.1 Presence of aortocoronary bypass graft; Z86.14 Personal history of Methicillin resistant Staphylococcus aureus infection; Z87.2 Personal history of diseases of the skin and subcutaneous tissue; Z87.891 Personal history of nicotine dependence; Z79.01 Long term (current) use of anticoagulants; Z79.4 Long term (current) use of insulin; Z79.52 Long term (current) use of systemic steroids; Z79.899 Other long term (current) drug therapy; Z83.3 Family history of diabetes mellitus; Z80.0 Family history of malignant neoplasm of digestive organs

== ENCOUNTER 2017-03-24 12:20 | Inpatient (IN) | payer OTHER ==
[~2017-03-24] VITALS: Ht 191.8 cm; Wt 136.0 kg
[~2017-03-24 12:20] MED LIST changes: -ACET325T96 PO; +AMLO-110 PO; -ASCA500 PO; -ASPEC81 PO; -CLIN150C15 PO; -CRG125 PO; -CRS/10 PO; -ERGO1TAB12 PO; -FRS/40 PO; -FURO40TA3 PO; +IMDSR60 PO; +LCTX PO; -LPR25 PO; -LSN20 PO; +NRN100 PO; -POTA20TA16 PO; -PRED-301 PO; +TPRSR50 PO; -VNTHFA/IN INH
--- NOTE | 2017-03-24 13:04 | EMERGENCY ROOM VISIT NOTE ---
History Report prepared by Mick: Alexi Humphrey Under the Supervision of: Dr. Inés Barahona M.D. First contact with patient: 12:45 Chief Complaint: INFECTION Stated Complaint: WOUNDS Nursing Triage Summary: PT HERE WITH BILATERAL LEG EDEMA AND DRAINAGE. PT IS ESTABLISHED AT THE [facility]OUND [facility]ARE CENTER. PT STATES STOPPED TAKING ABX A FEW WEEKS AGO AND SINCE THEN LEGS HAVE BEGAN WEEPING. PT STATES OCCASIONALLY HAS PAIN TO AREA. ALSO HAS KNOWN WOUND TO PERINEAL AREA. 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 He reports a tingling sensation in his legs, but more so in his left leg. He states the right leg was worse than the left leg in the past, though it has healed more than the left and now the left leg is worse than it was before. He has a history of diabetes. He reports there are infections on his legs. He denies any fevers. He has been seen at the wound clinic for treatment. He notes his home health nurse contacted the wound clinic on his behalf and they advised he come to the ED for evaluation. He notes he has not eaten lunch yet. He requests Dr. Cortez be consulted if he is going to be given antibiotics. 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 He reports there are infections on his legs. Review of Systems See HPI for pertinent positives & negatives. A total of 10 systems reviewed and were otherwise negative. Past Medical & Surgical Medical Problems: (1) Atrial fibrillation (2) CAD (coronary artery disease) (3) Chronic gout (4) CKD (chronic kidney disease), stage III (5) DM type 2 (diabetes mellitus, type 2) (6) Dyslipidemia (7) GERD (gastroesophageal reflux disease) (8) HTN (hypertension) (9) Ischemic cardiomyopathy (10) SHAUNA (obstructive sleep apnea) (11) Renal calculi Surgical Problems: (1) H/O arthroscopic knee surgery (2) History of right shoulder replacement (3) Status post total knee replacement, left Family History No pertinent family history Social History Smoking Status: Never Smoker Drug Use: none Marital Status: Housing Status: lives alone Occupation Status: retired Current/Historical Medications Scheduled Allopurinol (Zyloprim), 450 MG PO QAM Ergocalciferol (Vitamin D2), 50,000 UNITS PO MONTHLY Furosemide (Furosemide), 80 MG PO BID Gabapentin (Gabapentin), 100 MG PO TID Insulin Aspart 70/30 (Novolog Mix 70/30), 55 UNITS SC QAM Insulin Aspart 70/30 (Novolog Mix 70/30), 45 UNITS SC QPM Isosorbide Mononitrate (Isosorbide Mononitrate ER), 60 MG PO QAM Lisinopril (Zestril), 20 MG PO DAILY Metoprolol Tartrate (Lopressor) (Lopressor), 50 MG PO BID Mirtazapine Soltab (Remeron Soltab), 15 MG PO HS Omeprazole (Prilosec), 40 MG PO BID Prednisone (Prednisone), 5 MG PO DAILY Rosuvastatin Calcium (Crestor), 10 MG PO QPM Warfarin Sod (Coumadin), 10 MG PO [id number] Warfarin Sod (Jantoven), 5 MG PO 2XWK Scheduled PRN Acetaminophen Tab (Tylenol), 650 MG PO Q6H PRN for Pain or Fever Albuterol Hfa (Ventolin Hfa), 1-2 PUFFS INH Q6H PRN for SOB/Wheezing Cyclobenzaprine Hcl (Flexeril), 10 MG PO TID PRN for Muscle Spasms Hydrocodone/Acetaminophen 5MG/325MG (Tea 5MG/325MG), 1 TABLET PO TID PRN for Pain Nitroglycerin (Nitrostat), 0.4 MG UT PRN PRN for Chest Pain Senna/Docusate Sod (Senokot S), 1 TAB PO DAILY PRN for Constipation Tramadol (Ultram), 50 MG PO Q6 PRN for Pain Allergies Coded Allergies: NO KNOWN DRUG ALLERGIES (Verified Allergy, Unknown, ., 12/14/16) Physical Exam Vital Signs Date Time Temp Pulse Resp B/P (MAP) Pulse Ox O2 Delivery O2 Flow Rate FiO2 03/24/17 17:15 36.6 90 16 125/87 93 Room Air 03/24/17 16:40 82 20 123/52 96 Room Air 03/24/17 14:46 36.0 89 16 98/73 95 Room Air 03/24/17 12:20 36.0 90 16 110/65 95 Room Air Physical Exam Vital signs reviewed. General: Well-appearing elderly, in no significant distress. Obese HEENT: No scleral icterus, PERRLA, neck supple. Atraumatic. Cardiovascular: Regular rate and rhythm, no extra sounds. Pulmonary: Clear to auscultation bilaterally, normal work of breathing. Abdomen: Soft, nontender, nondistended, positive bowel sounds. Musculoskeletal: Left greater than right LE with erythema and warmth. LLE with a 4 cm area of open skin, serious drainage to proximal fuller. He has a superficial heal ulceration to the right foot. No proximal lymphangitic streaking. Neurologic: Patient awake alert and oriented x 3 Skin: Warm, dry, bilateral lower extremity cellulitis as described above. Medical Decision & Procedures Laboratory Results Test 03/24/17 12:47 03/24/17 13:37 03/24/17 15:12 Magnesium Level 2.3 mg/dl (1.8-2.4) Total Bilirubin 0.5 mg/dl (0.2-1) Direct Bilirubin mg/dl (0-0.2) Aspartate Amino Transf (AST/SGOT) 34 U/L (15-37) Alanine Aminotransferase (ALT/SGPT) 38 U/L (12-78) Alkaline Phosphatase 118 U/L (45-117) Total Protein 6.3 gm/dl (6.4-8.2) Albumin 3.2 gm/dl (3.4-5.0) Chemistry Specimen Hemolysis Bedside Lactic Acid Venous 2.76 mmol/L (0.90-1.70) Immature Granulocyte % (Auto) 0.3 % White Blood Count 8.78 K/uL (4.8-10.8) Red Blood Count 3.62 M/uL (4.7-6.1) Hemoglobin 11.4 g/dL (14.0-18.0) Hematocrit 34.8 % (42-52) Mean Corpuscular Volume 96.1 fL (80-100) Mean Corpuscular Hemoglobin 31.5 pg (25-34) Mean Corpuscular Hemoglobin Concent 32.8 g/dl (32-36) Platelet Count 139 K/uL (130-400) Mean Platelet Volume 10.0 fL (7.4-10.4) Neutrophils (%) (Auto) 84.0 % Lymphocytes (%) (Auto) 6.9 % Monocytes (%) (Auto) 6.9 % Eosinophils (%) (Auto) 1.7 % Basophils (%) (Auto) 0.2 % Neutrophils # (Auto) 7.36 K/uL (1.4-6.5) Lymphocytes # (Auto) 0.61 K/uL (1.2-3.4) Monocytes # (Auto) 0.61 K/uL (0.11-0.59) Eosinophils # (Auto) 0.15 K/uL (0-0.5) Basophils # (Auto) 0.02 K/uL (0-0.2) Immature Granulocyte # (Auto) 0.03 K/uL (0.00-0.02) Laboratory results per my review. Medications Administered Medications (Trade) Dose Ordered Sig/Aileen Route Start Time Stop Time Status Last Admin Dose Admin Sodium Chloride 500 ml @ 999 mls/hr Q31M STAT IV 03/24/17 13:07 03/24/17 13:37 DC 03/24/17 13:07 999 MLS/HR Sodium Chloride 1,000 ml @ 125 mls/hr Q8H STAT IV 03/24/17 13:07 03/24/17 19:06 DC 03/24/17 13:07 125 MLS/HR Piperacillin Sod/ Tazobactam Sod (Zosyn Iv) 4.5 gm ONE ONCE IV 03/24/17 13:45 03/24/17 13:46 DC 03/24/17 13:47 4.5 GM Vancomycin HCl 2000 mg/Sodium Chloride 540 ml @ 200 mls/hr ONE ONCE IV 03/24/17 14:00 03/24/17 16:41 DC 03/24/17 14:36 200 MLS/HR Acetaminophen/ Hydrocodone Bitart (Tea 5/325 Tab) 1 tab TID PRN PO 03/24/17 17:00 04/07/17 16:59 03/25/17 00:59 1 TAB ED Course 1255: Past medical records reviewed. The patient was evaluated in room A2. A complete history and physical examination was performed. 1307: Ordered Sodium Chloride 1,000 ml @ 125 mls/hr IV 1345: Ordered Zosyn 4.5 gm IV 1400: Ordered Vancomycin HCl 2,000 mg/Sodium Chloride 540 ml @ 200 mls/hr IV 1452: I spoke with Munir Montenegro. We discussed the patient's case. The patient will be evaluated by the [facility] for further management. Medical Decision Differential diagnosis: Etiologies such as DVT, musculoskeletal, infection, joint effusion, trauma, lymphedema, idiopathic, CHF, as well as others were entertained.. This patient was evaluated and appeared to be in no significant distress. Extensive dressings of the bilateral lower extremities were taken down by me. There is an open lesion to the left lower extremity with a circumferential cellulitis but distal to the knee. There is a similar but not quite as significant cellulitis to the right lower extremity. There is no open lesion appreciated. IV access was obtained and laboratory work was drawn. Patient has no elevation of the white blood cell count. He was medicated with IV vancomycin and Zosyn. Blood cultures are pending. The patient was advised of the findings. He'll be evaluated by the hospitalist service for further IV antibiotic therapy. Medication Reconcilliation Current Medication List: was personally reviewed by me Blood Pressure Screening Patient's blood pressure: Normal blood pressure Consults Time Called: 1447 Consulting Physician: Munir Montenegro Returned Call: [phone] I spoke with Munir Montenegro. We discussed the patient's case. The patient will be evaluated by the [facility] for further management. Impression Primary Impression: Bilateral lower leg cellulitis Scribe Attestation The scribe's documentation has been prepared under my direction and personally reviewed by me in its entirety. I confirm that the note above accurately reflects all work, treatment, procedures, and medical decision making performed by me. Departure Information Dispostion Being Evaluated By Hospitalist Referrals Jennifer Ryder M.D. (PCP) Patient Instructions My [facility]
[2017-03-24] MEDS ORDERED: SODIUM CHLORIDE 0.9% 500ML 500 ML IV STA (13:07)
[2017-03-24] MEDS ORDERED: SODIUM CHLORIDE 0.9% 1000ML 1,000 ML IV STA (13:07)
[2017-03-24] MEDS ORDERED: WARF5TAB7 PO (13:26)
[2017-03-24] MEDS ORDERED: CMD10 PO (13:26)
[2017-03-24] MEDS ORDERED: METO50TA16 PO (13:26)
[2017-03-24] MEDS ORDERED: PIPERACILLIN/TAZOBACTAM 4.5 GM/100ML D5W IV ONE (13:45)
[2017-03-24 13:47] LABS: CREATININE 2.15 mg/dl (0.60-1.40)
[2017-03-24 13:51] LABS: ALBUMIN 3.2 gm/dl (3.4-5.0); CALCIUM 8.7 mg/dl (8.5-10.1); POTASSIUM 4.3 mmol/L (3.5-5.1); TOTAL PROTEIN 6.3 gm/dl (6.4-8.2)
[2017-03-24] MEDS ORDERED: VANCOMYCIN INJ 2,000 MG in SODIUM CHLORIDE 0.9% 500ML 500 ML IV ONE (14:00)
[2017-03-24] MEDS ORDERED: PRED-301 PO (14:37)
[2017-03-24 15:33] LABS: BASO % 0.2 %; BASO ABS # 0.02 K/uL (0-0.2); EOS % 1.7 %; EOS ABS # 0.15 K/uL (0-0.5); HEMATOCRIT 34.8 % (42-52); HEMOGLOBIN 11.4 g/dL (14.0-18.0); IG# 0.03 K/uL (0.00-0.02); LYMPH % 6.9 %; LYMPH ABS # 0.61 K/uL (1.2-3.4); MEAN CELL VOLUME 96.1 fL (80-100); MEAN CORPUSCULAR HEMOGLOBIN 31.5 pg (25-34); MEAN CORPUSCULAR HGB CONC 32.8 g/dl (32-36); MONO % 6.9 %; MONO ABS # 0.61 K/uL (0.11-0.59); NEUT ABS # 7.36 K/uL (1.4-6.5); PLATELET COUNT 139 K/uL (130-400); RED CELL DISTRIBUTION WIDTH CV 19.1 % (11.5-14.5); RED CELL DISTRIBUTION WIDTH SD 66.8 fL (36.4-46.3); WHITE BLOOD COUNT 8.78 K/uL (4.8-10.8)
[2017-03-24] MEDS ORDERED: CONSULT PHARMACY STA (15:55)
[2017-03-24] MEDS ORDERED: ACETAMINOPHEN 325 MG TAB PO PRN (16:00)
[2017-03-24] MEDS ORDERED: ONDANSETRON INJ 2 MG/ML 2 ML VIAL IV PRN (16:00)
[2017-03-24] MEDS ORDERED: PIPERACILL/TAZOBAC CONSULT ACTIVE PRN (16:15)
[2017-03-24] MEDS ORDERED: VANCOMYCIN CONSULT ACTIVE PRN (16:15)
[2017-03-24] MEDS ORDERED: ERGO1TAB12 PO (16:26)
[2017-03-24] MEDS ORDERED: GLUCOSE 40% GEL 15 GM TUBE PO PRN (16:30)
[2017-03-24] MEDS ORDERED: GLUCOSE 10 TABS/TUBE PO PRN (16:30)
[2017-03-24] MEDS ORDERED: GLUCAGON FOR INJ 1 MG VIAL SQ PRN (16:30)
[2017-03-24] MEDS ORDERED: DEXTROSE 50% 50 ML SYR IV PRN (16:30)
[2017-03-24 16:32] LABS: INR 2.4 (0.9-1.1)
[2017-03-24] MEDS ORDERED: ACET-1693 PO (16:43)
[2017-03-24] MEDS ORDERED: CRS/10 PO (16:43)
[2017-03-24] MEDS ORDERED: PHARMACY GLYCEMIC MGMT CONSULT SCH (16:58)
[2017-03-24] MEDS ORDERED: DOCUSATE SODIUM/SENNA 50/8.6MG TAB PO PRN (17:00)
[2017-03-24] MEDS ORDERED: HYDROCODONE/ACETAMIN 5/325MG TAB PO PRN (17:00)
[2017-03-24] MEDS ORDERED: TRAMADOL HCL 50 MG TAB PO PRN (17:00)
--- NOTE | 2017-03-24 17:05 | Pharmacy Progress Note ---
Pharmacy Antibiotic Consult Date of Service: Mar 24, 2017. Pharmacy Dosing Scope Pharmacy is consulted by Bernice Banerjee to initiate Vancomycin and Zosyn IV dosing therapy, order appropriate labs and adjust drug dose/frequency. Subjective The patient is a 81 year old male admitted on 03/24/17 for recurrent cellulitis. Objective Height (Feet): 6 Height (Inches): 3.00 Weight (Kilograms): 146.000 Lab Results (24hrs): Test 03/24/17 12:47 03/24/17 13:37 03/24/17 15:12 03/24/17 16:12 Sodium Level 137 mmol/L (136-145) Potassium Level 4.3 mmol/L (3.5-5.1) Chloride Level 102 mmol/L (98-107) Carbon Dioxide Level 24 mmol/L (21-32) Anion Gap 11.0 mmol/L (3-11) Blood Urea Nitrogen 44 mg/dl (7-18) Creatinine 2.15 mg/dl (0.60-1.40) Est Creatinine Clear Calc Drug Dose 41.6 ml/min Estimated GFR () 32.3 Estimated GFR (Non- 27.9 BUN/Creatinine Ratio 20.2 (10-20) Random Glucose 154 mg/dl (70-99) Calcium Level 8.7 mg/dl (8.5-10.1) Magnesium Level 2.3 mg/dl (1.8-2.4) Total Bilirubin 0.5 mg/dl (0.2-1) Direct Bilirubin mg/dl (0-0.2) Aspartate Amino Transf (AST/SGOT) 34 U/L (15-37) Alanine Aminotransferase (ALT/SGPT) 38 U/L (12-78) Alkaline Phosphatase 118 U/L (45-117) Total Protein 6.3 gm/dl (6.4-8.2) Albumin 3.2 gm/dl (3.4-5.0) Chemistry Specimen Hemolysis Bedside Lactic Acid Venous 2.76 mmol/L (0.90-1.70) White Blood Count 8.78 K/uL (4.8-10.8) Red Blood Count 3.62 M/uL (4.7-6.1) Hemoglobin 11.4 g/dL (14.0-18.0) Hematocrit 34.8 % (42-52) Mean Corpuscular Volume 96.1 fL (80-100) Mean Corpuscular Hemoglobin 31.5 pg (25-34) Mean Corpuscular Hemoglobin Concent 32.8 g/dl (32-36) Platelet Count 139 K/uL (130-400) Mean Platelet Volume 10.0 fL (7.4-10.4) Neutrophils (%) (Auto) 84.0 % Lymphocytes (%) (Auto) 6.9 % Monocytes (%) (Auto) 6.9 % Eosinophils (%) (Auto) 1.7 % Basophils (%) (Auto) 0.2 % Neutrophils # (Auto) 7.36 K/uL (1.4-6.5) Lymphocytes # (Auto) 0.61 K/uL (1.2-3.4) Monocytes # (Auto) 0.61 K/uL (0.11-0.59) Eosinophils # (Auto) 0.15 K/uL (0-0.5) Basophils # (Auto) 0.02 K/uL (0-0.2) RDW Standard Deviation 66.8 fL (36.4-46.3) RDW Coefficient of Variation 19.1 % (11.5-14.5) Immature Granulocyte % (Auto) 0.3 % Immature Granulocyte # (Auto) 0.03 K/uL (0.00-0.02) Prothrombin Time 24.8 SECONDS (9.0-12.0) Prothromb Time International Ratio 2.4 (0.9-1.1) Assessment & Plan Assessment 81 year old male with history of DM and recurrent cellulitis with proteus and MRSA. * He finished a course of omnicef and bactrim in february. Since then his leg wounds started draining again and became painful. * He is established with the wound care center. * Pt is afebrile with no leukocytosis. * Blood cultures pending * Baseline SCr ~1.5-1.7, today's scr=2.1 * Estimated t1/2=20 hours Plan Vancomycin * Received a loading dose of 2000 mg (14 mg/kg) IV X 1 dose in the ER * Maintenance dose of 2250 mg (15mg/kg) IV q 24 hours * Goal trough level 15-20mcg/mL * Vanco trough level ordered for 03/26 @2029 Zosyn * 4.5gm iv over 30 min followed by 4.5 gm q 8 hours EI * Higher dose selected for pt's BMI>35 Pharmacy will continue to follow and will adjust dose/frequency as necessary. Thank you
[2017-03-24 17:15] VITALS: BP 125/87; PULSE 90; TEMP 36.6; O2SAT 93; Ht 191.8 cm; Wt 136.0 kg
[2017-03-24] MEDS ORDERED: WARFARIN SOD 10 MG TAB PO SCH (18:00)
--- NOTE | 2017-03-24 18:33 | History and Physical ---
History & Physical Date & Time of Service: Mar 24, 2017 ~ 15:30 Chief Complaint: Left Leg Wound Primary Care Physician: Jennifer Ryder M.D. History of Present Illness 81 year old male who presents to the ED for evaluation of left leg wound. Patient has history of chronic, recurrent venous stasis to the BLLE. He follows closely with wound care and ID. At the beginning of the year, patient was discharged from the wound care center because his wounds had healed completely however reopened shortly after. He was seen in the wound center on 03/07 and had a culture obtained that grew coag negative staph. He is currently not on antibiotics. Prior he had finished courses of Bactrim and Cefdinir for culture growing MRSA and Proteus. Patient has noticed increased redness and pain to the LLE. Home health nursing came to evaluate the patient today and found an open wound on the left proximal fuller. Patient denies fever and chills. No abdominal pain, nausea, vomiting, or diarrhea. He has chronic exertional shortness of breath which is unchanged from baseline. No lightheadedness, dizziness, diaphoresis, or syncopal events. He denies urinary symptoms. Labs in the ED show POC lactic acid 2.7, other labs unremarkable. Vitals are stable. He was given IVF, IV Vanco, and IV Zosyn. Past Medical/Surgical History Medical Problems: (1) Atrial fibrillation Status: Chronic (2) CAD (coronary artery disease) Permanent Comment: 1994 - CABG x 5 Status: Chronic (3) Chronic gout Status: Chronic (4) CKD (chronic kidney disease), stage III Status: Chronic (5) DM type 2 (diabetes mellitus, type 2) Status: Chronic (6) Dyslipidemia Status: Chronic (7) GERD (gastroesophageal reflux disease) Status: Chronic (8) HTN (hypertension) Status: Chronic (9) Ischemic cardiomyopathy Status: Chronic (10) SHAUNA (obstructive sleep apnea) Status: Chronic (11) Renal calculi Status: Chronic Surgical Problems: (1) H/O arthroscopic knee surgery Status: Chronic (2) History of right shoulder replacement Status: Chronic (3) Status post total knee replacement, left Status: Chronic Family History non contributory due to patient's advanced age Social History Smoking Status: Former Smoker Alcohol Use: none Immunizations History of Influenza Vaccine: Yes Influenza Vaccine Date: Oct 24, 2016 History of Tetanus Vaccine?: Yes Tetanus Immunization Date: Sep 10, 2008 History of Pneumococcal: Yes Pneumococcal Date: Feb 27, 2014 Multi-Drug Resistant Organisms History of MDRO: Yes Type of MDRO: MRSA Allergies Coded Allergies: NO KNOWN DRUG ALLERGIES (Verified Allergy, Unknown, ., 12/14/16) Home Medications Scheduled Allopurinol (Zyloprim), 450 MG PO QAM Ergocalciferol (Vitamin D2), 50,000 UNITS PO MONTHLY Furosemide (Furosemide), 80 MG PO BID Gabapentin (Gabapentin), 100 MG PO TID Insulin Aspart 70/30 (Novolog Mix 70/30), 55 UNITS SC QAM Insulin Aspart 70/30 (Novolog Mix 70/30), 45 UNITS SC QPM Isosorbide Mononitrate (Isosorbide Mononitrate ER), 60 MG PO QAM Lisinopril (Zestril), 20 MG PO DAILY Metoprolol Tartrate (Lopressor) (Lopressor), 50 MG PO BID Mirtazapine Soltab (Remeron Soltab), 15 MG PO HS Omeprazole (Prilosec), 40 MG PO BID Prednisone (Prednisone), 5 MG PO DAILY Rosuvastatin Calcium (Crestor), 10 MG PO QPM Warfarin Sod (Coumadin), 10 MG PO 5XWK Warfarin Sod (Jantoven), 5 MG PO 2XWK Scheduled PRN Acetaminophen Tab (Tylenol), 650 MG PO Q6H PRN for Pain or Fever Albuterol Hfa (Ventolin Hfa), 1-2 PUFFS INH Q6H PRN for SOB/Wheezing Cyclobenzaprine Hcl (Flexeril), 10 MG PO TID PRN for Muscle Spasms Hydrocodone/Acetaminophen 5MG/325MG (Hodge 5MG/325MG), 1 TABLET PO TID PRN for Pain Nitroglycerin (Nitrostat), 0.4 MG UT PRN PRN for Chest Pain Senna/Docusate Sod (Senokot S), 1 TAB PO DAILY PRN for Constipation Tramadol (Ultram), 50 MG PO Q6 PRN for Pain Review of Systems ROS per HPI, all other systems reviewed and negative Physical Exam Vital Signs Date Time Temp Pulse Resp B/P (MAP) Pulse Ox O2 Delivery O2 Flow Rate FiO2 03/24/17 16:40 82 20 123/52 96 Room Air 03/24/17 14:46 36.0 89 16 98/73 95 Room Air 03/24/17 12:20 36.0 90 16 110/65 95 Room Air General Appearance: WD/WN, no apparent distress, + obese Head: normocephalic, atraumatic Eyes: normal inspection, EOMI, sclerae normal ENT: hearing grossly normal, + pertinent finding (mucous membranes moist) Neck: supple, no JVD, trachea midline Respiratory/Chest: lungs clear, normal breath sounds, no respiratory distress Cardiovascular: normal peripheral pulses, + irregularly irregular (rate controlled), + pertinent finding (+2-3 edema BLLE, L > R ) Abdomen/GI: normal bowel sounds, non tender, soft, no organomegaly, + distended Extremities/Musculoskelatal: normal inspection, no calf tenderness, normal capillary refill Neurologic/Psych: no motor/sensory deficits, alert, normal mood/affect, oriented x 3 Skin: warm/dry, + pertinent finding (erythema BLLE, L > R; open wound to left proximal fuller with serous drainage ) Diagnostics Laboratory Results Results Past 24 Hours Test 03/24/17 12:47 03/24/17 13:37 03/24/17 15:12 03/24/17 16:12 Range/Units Sodium Level 137 136-145 mmol/L Potassium Level 4.3 3.5-5.1 mmol/L Chloride Level 102 98-107 mmol/L Carbon Dioxide Level 24 21-32 mmol/L Anion Gap 11.0 3-11 mmol/L Blood Urea Nitrogen 44 7-18 mg/dl Creatinine 2.15 0.60-1.40 mg/dl Est Creatinine Clear Calc Drug Dose 41.6 ml/min Estimated GFR () 32.3 Estimated GFR (Non- 27.9 BUN/Creatinine Ratio 20.2 10-20 Random Glucose 154 70-99 mg/dl Calcium Level 8.7 8.5-10.1 mg/dl Magnesium Level 2.3 1.8-2.4 mg/dl Total Bilirubin 0.5 0.2-1 mg/dl Direct Bilirubin 0-0.2 mg/dl Aspartate Amino Transf (AST/SGOT) 34 15-37 U/L Alanine Aminotransferase (ALT/SGPT) 38 12-78 U/L Alkaline Phosphatase 118 45-117 U/L Total Protein 6.3 6.4-8.2 gm/dl Albumin 3.2 3.4-5.0 gm/dl Chemistry Specimen Hemolysis Bedside Lactic Acid Venous 2.76 0.90-1.70 mmol/L White Blood Count 8.78 4.8-10.8 K/uL Red Blood Count 3.62 4.7-6.1 M/uL Hemoglobin 11.4 14.0-18.0 g/dL Hematocrit 34.8 42-52 % Mean Corpuscular Volume 96.1 80-100 fL Mean Corpuscular Hemoglobin 31.5 25-34 pg Mean Corpuscular Hemoglobin Concent 32.8 32-36 g/dl Platelet Count 139 130-400 K/uL Mean Platelet Volume 10.0 7.4-10.4 fL Neutrophils (%) (Auto) 84.0 % Lymphocytes (%) (Auto) 6.9 % Monocytes (%) (Auto) 6.9 % Eosinophils (%) (Auto) 1.7 % Basophils (%) (Auto) 0.2 % Neutrophils # (Auto) 7.36 1.4-6.5 K/uL Lymphocytes # (Auto) 0.61 1.2-3.4 K/uL Monocytes # (Auto) 0.61 0.11-0.59 K/uL Eosinophils # (Auto) 0.15 0-0.5 K/uL Basophils # (Auto) 0.02 0-0.2 K/uL RDW Standard Deviation 66.8 36.4-46.3 fL RDW Coefficient of Variation 19.1 11.5-14.5 % Immature Granulocyte % (Auto) 0.3 % Immature Granulocyte # (Auto) 0.03 0.00-0.02 K/uL Prothrombin Time 24.8 9.0-12.0 SECONDS Prothromb Time International Ratio 2.4 0.9-1.1 Test 03/24/17 17:00 Range/Units Microbiology Results 03/24/17 Blood Culture, Received Pending 03/24/17 Blood Culture, Received Pending Impression Assessment and Plan LLE VENOUS STASIS ULCER CELLULITIS - admit to med/surg - patient presenting with increasing LLE erythema and edema, wound on the proximal left fuller - history of chronic / recurrent venous stasis ulcers - follows with the wound care center - on presentation: afebrile, no leukocytosis, vitals stable; POC lactic acid 2.7 - most recent culture grew coag negative staph; in the past has grown MRSA, proteus, and pseudomonas - s/p Vanco and Zosyn in the ED, will continue with - follow up blood and wound cultures - follow up lactic acid after IVF - will resume IVF if lactic acid remains elevated; need to give gentle hydration due to reduced LVEF - wound care consult ISCHEMIC CARDIOMYOPATHY - EF 30-35% from echo 12/2016 - will hold diuretics while giving IVF for lactic acidosis - currently appears euvolemic - continue beta leah, JUSTIN, nitrate, and statin ATRIAL FIBRILLATION - rate controlled on beta leah - anticoagulated on Coumadin, INR 2.4 DM - hgb a1c 8.3 12/2016 - hold 70/30 and utilize basal/bolus while hospitalized CKD STAGE III - baseline creat runs in the high 1's - creat noted to be 2.1 today - continue to monitor, avoid nephrotoxic agents when able GOUT - continue allopurinol, prednisone - no role for stress dose steroids at this time, BP stable GERD - continue PPI DVT PROPHYLAXIS - on Coumadin, INR 2.4 CODE STATUS - Patient is a DNR as per my discussion with him. DISPO - In my clinical judgment this beneficiary meets acute admission criteria, established by [facility], that includes being hospitalized through two midnights. ATTENDING ADDENDUM : L lower ext chronic venous status ulcer /bilat lower ext cellulitis L> R follows with the wound clinic and ID Dr Flynn recently completed oral abx presents with worsening of swelling and serous seepage form lower ext with extending ulcer base on left lower leg no evidence of sepsis started on empiric Abx with Vancomycin /Zosyn blood and wound culture ordered ID and wound care eval requested Ayla Levy MD Level of Care Med/Surg Resuscitation Status FULL RESUSCITATION VTE Prophylaxis VTE Risk Assessment Done? Y/N: Yes Risk Level: Moderate Given or contraindicated: Warfarin (Coumadin) Additional Copies To Jennifer Ryder M.D.
[2017-03-24] MEDS: INSULIN ASPART 100 UNITS/ML 3 ML PEN SC SCH ×2 (18:34→21:14)
[2017-03-24] MEDS ORDERED: SODIUM CHLORIDE 0.9% 1000ML 1,000 ML IV SCH (19:00)
[2017-03-24] MEDS ORDERED: CYCL10TA6 PO (19:12)
[2017-03-24] MEDS ORDERED: LSX80 PO (19:12)
[2017-03-24] MEDS ORDERED: NVLGI7030 SC (19:12)
[2017-03-24] MEDS ORDERED: ALLO300T2 PO (19:12)
[2017-03-24] MEDS ORDERED: TRAM-10 PO (19:12)
[2017-03-24] MEDS ORDERED: SENN-65 PO (19:12)
[2017-03-24] MEDS ORDERED: LISI-725 PO (19:12)
[2017-03-24] MEDS ORDERED: VNTHFA/IN INH (19:12)
[2017-03-24] MEDS ORDERED: MIRT15TA2 PO (19:12)
[2017-03-24] MEDS: PIPERACILL/TAZOBAC IV 4.5 GM in DEXTROSE 5% 100ML 100 ML IV SCH (19:43)
[2017-03-24] MEDS: METOPROLOL TARTRATE 50 MG TAB PO SCH (21:12)
[2017-03-24] MEDS: INSULIN GLARGINE SOLOSTAR 100 UNITS/ML 3 ML PEN SC SCH (21:15)
[2017-03-24] MEDS: GABAPENTIN 100 MG CAP PO SCH (21:17)
[2017-03-24] MEDS: PANTOprazole SOD 40 MG TAB PO SCH (21:17)
[2017-03-24] MEDS: ROSUVASTATIN CALCIUM 10 MG TAB PO SCH (21:18)
[2017-03-24] MEDS: MIRTAZAPINE SOLTAB 15 MG PO SCH (21:18)
[2017-03-24] MEDS: VANCOMYCIN INJ 2,250 MG in SODIUM CHLORIDE 0.9% 500ML 500 ML IV SCH (21:18)
--- NOTE | 2017-03-24 21:45 | Pharmacy Progress Note ---
Glycemic Control Intl Consult Date of Service Mar 24, 2017. Scope Glycemic Pharmacist consulted by JOSELIN Phipps on 03/24/17 for glycemic control and to write orders per [facility] inpatient glycemic control protocol Objective Weight (Kilograms): 146.000 Accuchecks BSG (last 24hrs): Test 03/24/17 12:47 Random Glucose 154 mg/dl (70-99) Laboratory Data (last 24hrs) Test 03/24/17 12:47 03/24/17 15:12 Anion Gap 11.0 mmol/L BUN/Creatinine Ratio 20.2 Blood Urea Nitrogen 44 mg/dl Creatinine 2.15 mg/dl Potassium Level 4.3 mmol/L Sodium Level 137 mmol/L White Blood Count 8.78 K/uL Red Blood Count 3.62 M/uL Hemoglobin 11.4 g/dL Hematocrit 34.8 % Mean Corpuscular Volume 96.1 fL Mean Corpuscular Hemoglobin 31.5 pg Mean Corpuscular Hemoglobin Concent 32.8 g/dl Platelet Count 139 K/uL Mean Platelet Volume 10.0 fL Neutrophils (%) (Auto) 84.0 % Lymphocytes (%) (Auto) 6.9 % Monocytes (%) (Auto) 6.9 % Eosinophils (%) (Auto) 1.7 % Basophils (%) (Auto) 0.2 % Neutrophils # (Auto) 7.36 K/uL Lymphocytes # (Auto) 0.61 K/uL Monocytes # (Auto) 0.61 K/uL Eosinophils # (Auto) 0.15 K/uL Basophils # (Auto) 0.02 K/uL Recent Pertinent Medications Outpatient Anti-diabetic Regimen: * Novolog Mix 70%/30% 55 units qam, 45 units qpm * A1c = pending 03/25/17 The patient is currently receiving: * Basal insulin: Lantus 25 units every 12 hours, had Novolog Mix 55 units this am * Correctional Insulin: Novolog Correction per scale ACHS Goal Range: Low 110 mg/dL - High 150 mg/dL Correction Factor: 15 mg/dL/unit * Prandial insulin: Per carb ratio of 1 unit per 5 grams CHO consumed Risk Factors for Insulin Resistance: * Steroids: Prednisone 5 mg qam (home dose) * Infection: B/L leg cellulitis, on Zosyn, vancomycin IV * Diet: type 2 diabetic/AHA/low sodium Assessment & Plan ASSESSMENT: * 81 yo type 2 diabetic admitted with bilateral leg cellulitis. HgbA1c pending for 03/25 to assess recent glycemic control. BSG's not bad due to his am Novolog Mix today. Will continue Novolog coverage and Lantus with sliding scale. Will reassess in am. PLAN FOR INPATIENT GLYCEMIC CONTROL: * Basal insulin with LANTUS SQ BID per protocol: if BSG is less than 110, give 15 units if BSG is 110-150, give 25 units if BSG is greater than 150, give 30 units\ * Correctional Insulin with NOVOLOG per scale ACHS or Q6hrs while NPO * Goal Range: Low 110 mg/dL - High 150 mg/dL * Correction Factor: 15 mg/dL/unit * Nutritional / Prandial insulin per carb ratio of 1 unit per 5 grams CHO consumed * Please note that the plan above was derived based on current level of insulin resistance and hospital stress. These recommendations are appropriate for inpatient admission only. Plan of care upon discharge will need to be reassessed to avoid potential outpatient hypo/hyperglycemia. Thank you.
[2017-03-25] VITALS: BP 127/65; PULSE 63; TEMP 36.6; O2SAT 90
[2017-03-25] MEDS ORDERED: PNEUMOCOCCAL ADMINISTRATION CHARGE ONE (00:30)
[2017-03-25] MEDS ORDERED: PNEUMOCOCCAL POLYSACCHARIDES 25 MCG/0.5 ML VIAL/SYR IM. ONE (00:30)
[2017-03-25] MEDS ORDERED: INFLUENZA ADMINISTRATION CHARGE ONE (00:30)
[2017-03-25] MEDS ORDERED: INFLUENZA VACCINE HIGH DOSE 65+ 0.5 ML SYR IM. ONE (00:30)
[2017-03-25] MEDS: PIPERACILL/TAZOBAC IV 4.5 GM in DEXTROSE 5% 100ML 100 ML IV SCH ×3 (03:43→20:15)
[2017-03-25] MEDS ORDERED: ALBUTEROL HFA 8 GM INHALER INH PRN (03:45)
[2017-03-25 04:10] VITALS: PULSE 67; O2SAT 89
[2017-03-25 07:17] VITALS: BP 145/77; PULSE 74; TEMP 36.9; O2SAT 98
[2017-03-25 08:06] LABS: INR 2.4 (0.9-1.1)
[2017-03-25 08:24] LABS: CALCIUM 8.8 mg/dl (8.5-10.1); CREATININE 2.28 mg/dl (0.60-1.40); POTASSIUM 3.6 mmol/L (3.5-5.1)
[2017-03-25] MEDS: GABAPENTIN 100 MG CAP PO SCH ×3 (08:32→20:15)
[2017-03-25] MEDS: LISINOPRIL 20 MG TAB PO SCH (08:33)
[2017-03-25] MEDS: ISOSORBIDE MONONITRATE 60 MG TABCR PO SCH (08:33)
[2017-03-25] MEDS: ALLOPURINOL 300 MG TAB PO SCH (08:34)
[2017-03-25] MEDS: PANTOprazole SOD 40 MG TAB PO SCH ×2 (08:36→20:16)
[2017-03-25] MEDS: METOPROLOL TARTRATE 50 MG TAB PO SCH ×2 (08:36→20:16)
[2017-03-25 08:38] LABS: HEMOGLOBIN 12.3 g/dL (14.0-18.0); MEAN CELL VOLUME 96.2 fL (80-100); MEAN CORPUSCULAR HEMOGLOBIN 31.1 pg (25-34); MEAN CORPUSCULAR HGB CONC 32.4 g/dl (32-36); MEAN PLATELET VOLUME 9.7 fL (7.4-10.4); PLATELET COUNT 134 K/uL (130-400); RED CELL DISTRIBUTION WIDTH CV 19.3 % (11.5-14.5); RED CELL DISTRIBUTION WIDTH SD 67.2 fL (36.4-46.3); WHITE BLOOD COUNT 8.48 K/uL (4.8-10.8)
[2017-03-25] MEDS: INSULIN GLARGINE SOLOSTAR 100 UNITS/ML 3 ML PEN SC SCH (08:42)
[2017-03-25] MEDS: INSULIN ASPART 100 UNITS/ML 3 ML PEN SC SCH ×4 (08:43→20:23)
[2017-03-25 08:47] LABS: HEMOGLOBIN A1C 7.9 % (4.5-5.6)
[2017-03-25 14:23] VITALS: BP 132/84; PULSE 63; TEMP 36.8; O2SAT 93
[2017-03-25] MEDS: WARFARIN SOD 10 MG TAB PO SCH (16:07)
--- NOTE | 2017-03-25 19:17 | Progress Note ---
Medicine Progress Note Date & Time of Visit: Mar 25, 2017 at ~ 16:30 . Subjective CC: Follow-up visit for multiple problems. HPI: Admitted yesterday with cellulitis of left lower extremity with underlying venous stasis ulcers. Afebrile. Legs feel a bit better. ROS: General- as noted above in HPI Resp- no cough; dyspnea at baseline Cardiac- no chest pain, chronic edema GI- no nausea, no vomiting, no diarrhea, no constipation - no dysuria, no difficulty voiding . Objective Last 8 Hrs Date Time Temp Pulse Resp B/P (MAP) Pulse Ox O2 Delivery O2 Flow Rate FiO2 03/25/17 16:00 Room Air 03/25/17 14:23 36.8 63 20 132/84 (100) 93 Room Air Physical Exam: General- sitting in chair; no distress Lungs- clear to auscultation; no respiratory distress Cardiovascular- irregular; no murmur or gallop appreciated; 2-3+ pretibial edema Abdomen- + bowel sounds, soft, nontender Extremities- no cyanosis; no calf tenderness; venous stasis ulcers left anterior leg; bilateral erythema, L > R Neuro- alert, oriented Skin- warm & dry . Laboratory Results: Last 24 Hours Test 03/24/17 20:26 03/25/17 00:40 03/25/17 07:30 03/25/17 07:43 Bedside Glucose 182 mg/dl 134 mg/dl Lactic Acid Level 1.8 mmol/L 1.8 mmol/L Prothrombin Time 24.8 SECONDS Prothromb Time International Ratio 2.4 Sodium Level 138 mmol/L Potassium Level 3.6 mmol/L Chloride Level 104 mmol/L Carbon Dioxide Level 24 mmol/L Anion Gap 10.0 mmol/L Blood Urea Nitrogen 46 mg/dl Creatinine 2.28 mg/dl Est Creatinine Clear Calc Drug Dose 38.0 ml/min Estimated GFR () 30.1 Estimated GFR (Non- 25.9 BUN/Creatinine Ratio 20.4 Random Glucose 125 mg/dl Calcium Level 8.8 mg/dl Test 03/25/17 08:03 White Blood Count 8.48 K/uL Red Blood Count 3.95 M/uL Hemoglobin 12.3 g/dL Hematocrit 38.0 % Mean Corpuscular Volume 96.2 fL Mean Corpuscular Hemoglobin 31.1 pg Mean Corpuscular Hemoglobin Concent 32.4 g/dl RDW Standard Deviation 67.2 fL RDW Coefficient of Variation 19.3 % Platelet Count 134 K/uL Mean Platelet Volume 9.7 fL Estimated Average Glucose 180 mg/dl Hemoglobin A1c 7.9 % Date/Time Source Procedure Growth Status 03/25/17 02:00 Nasal MRSA DNA Surveillance Screen - Final Specimen Negative for MRSA by DNA Probe Complete 03/25/17 16:30 Ulcer Leg Right Lower Gram Stain Pending Received 03/25/17 16:30 Ulcer Leg Right Lower Wound Culture Pending Received 03/25/17 16:30 Ulcer Leg Lower Left Gram Stain Pending Received 03/25/17 16:30 Ulcer Leg Lower Left Wound Culture Pending Received Assessment & Plan RECURRENT CELLULITIS / VENOUS STASIS ULCERS Continue vancomycin and piperacillin /tazobactam. Consult Wound Care. Consult ID. CORONARY ARTERY DISEASE No anginal symptoms. Continue metoprolol, nitrates, statin. ATRIAL FIBRILLATION Continue metoprolol and warfarin. HYPERTENSION Continue metoprolol and nitrates. Follow and titrate Rx. SLEEP APNEA Continue BiPAP. CKD III Serum creatinine at time of admission was 2.15. Serum creatinine today = 2.28. Follow. DM TYPE 2 Pharmacy consulted for glycemic management. DYSLIPIDEMIA Continue rosuvastatin. GOUT Continue allopurinol. VTE PROPHYLAXIS Continue warfarin. Ambulate as able. DISPOSITION To be determined. Family Medicine follow-up with Dr. Ryder. . Current Inpatient Medications: Current Inpatient Medications Medications (Trade) Dose Ordered Sig/Aileen Route Start Time Stop Time Status Last Admin Dose Admin Acetaminophen (Tylenol Tab) 650 mg Q4H PRN PO 03/24/17 16:00 04/23/17 15:59 Ondansetron HCl (Zofran Inj) 4 mg Q6H PRN IV 03/24/17 16:00 04/23/17 15:59 Miscellaneous Information (Consult) 1 ea UD PRN N/A 03/24/17 16:15 04/23/17 16:14 Miscellaneous Information (Consult) 1 ea UD PRN N/A 03/24/17 16:15 04/23/17 16:14 Insulin Aspart (novoLOG ASPART) SLIDING SCALE If C... ACHS SC 03/24/17 17:22 04/23/17 17:21 03/25/17 18:21 10 UNITS Glucose (Glucose 40% Gel) 15-30 GRAMS 15 GRAMS... UD PRN PO 03/24/17 16:30 04/23/17 16:29 Glucose (Glucose Chew Tab) 4-8 Tablets 4 Tabl... UD PRN PO 03/24/17 16:30 04/23/17 16:29 Dextrose (Dextrose 50% 50ML Syringe) 25-50ML OF 50% DW IV FOR... UD PRN IV 03/24/17 16:30 04/23/17 16:29 Glucagon (Glucagon Inj) 1 mg UD PRN SQ 03/24/17 16:30 04/23/17 16:29 Miscellaneous Information (Consult Glycemic Management Pharmacy) 1 ea UD N/A 03/24/17 16:58 04/23/17 16:57 Piperacillin Sod/ Tazobactam Sod 4.5 gm/Dextrose 120 ml @ 30 mls/hr Q8H IV 03/24/17 20:00 04/03/17 19:59 03/25/17 12:04 30 MLS/HR Vancomycin HCl 2250 mg/Sodium Chloride 545 ml @ 200 mls/hr Q24H IV 03/24/17 21:00 04/03/17 20:59 03/24/17 21:18 200 MLS/HR Allopurinol (Zyloprim Tab) 450 mg QAM PO 03/25/17 08:00 04/24/17 08:59 03/25/17 08:34 450 MG Gabapentin (Neurontin Cap) 100 mg TID PO 03/24/17 20:00 04/23/17 20:59 03/25/17 12:54 100 MG Acetaminophen/ Hydrocodone Bitart (Cisco 5/325 Tab) 1 tab TID PRN PO 03/24/17 17:00 04/07/17 16:59 03/25/17 00:59 1 TAB Isosorbide Mononitrate (Imdur Ext Rel Tab) 60 mg QAM PO 03/25/17 08:00 04/24/17 08:59 03/25/17 08:33 60 MG Lisinopril (Zestril Tab) 20 mg DAILY PO 03/25/17 08:00 04/24/17 08:59 03/25/17 08:33 20 MG Metoprolol Tartrate (Lopressor Tab) 50 mg BID PO 03/24/17 20:00 04/23/17 20:59 03/25/17 08:36 50 MG Mirtazapine (Remeron Solutab) 15 mg HS PO 03/24/17 21:00 04/23/17 20:59 03/24/17 21:18 15 MG Prednisone (PredniSONE TAB) 5 mg DAILY PO 03/25/17 08:00 04/24/17 08:59 03/25/17 08:32 5 MG Rosuvastatin Calcium (Crestor Tab) 10 mg QPM PO 03/24/17 21:00 04/23/17 20:59 03/24/17 21:18 10 MG Senna/Docusate Sodium (Senokot S Tab) 1 tab DAILY PRN PO 03/24/17 17:00 04/23/17 16:59 Tramadol HCl (Ultram Tab) 50 mg Q6 PRN PO 03/24/17 17:00 04/23/17 16:59 Warfarin Sodium (Coumadin Tab) 5 mg TuTh@1600 PO 03/28/17 16:00 04/27/17 15:59 Pantoprazole Sodium (Protonix Tab) 40 mg BID PO 03/24/17 20:00 04/23/17 20:59 03/25/17 08:36 40 MG Warfarin Sodium (Coumadin Tab) 10 mg SuMoWeFrSa@1600 PO 03/25/17 16:00 04/23/17 17:59 03/25/17 16:07 10 MG Albuterol (Ventolin Hfa Inhaler) 2 puffs Q6H PRN INH 03/25/17 03:45 04/24/17 03:44 Insulin Glargine (Lantus Solostar Pen) 25 units Q12 SC 03/25/17 21:00 04/24/17 20:59
[2017-03-25] MEDS: ROSUVASTATIN CALCIUM 10 MG TAB PO SCH (20:16)
[2017-03-25] MEDS ORDERED: INSULIN GLARGINE SOLOSTAR 100 UNITS/ML 3 ML PEN SC SCH (21:00)
[2017-03-25] MEDS: MIRTAZAPINE SOLTAB 15 MG PO SCH (22:06)
[2017-03-25] MEDS: VANCOMYCIN INJ 2,250 MG in SODIUM CHLORIDE 0.9% 500ML 500 ML IV SCH (22:06)
[2017-03-25 22:19] VITALS: PULSE 88; O2SAT 92
[2017-03-25 23:00] VITALS: BP 144/81; PULSE 80; TEMP 36.4; O2SAT 94
[2017-03-26] MEDS: PIPERACILL/TAZOBAC IV 4.5 GM in DEXTROSE 5% 100ML 100 ML IV SCH ×3 (03:49→20:02)
[2017-03-26 07:06] LABS: INR 2.2 (0.9-1.1)
[2017-03-26 07:42] LABS: CALCIUM 8.5 mg/dl (8.5-10.1); CREATININE 2.19 mg/dl (0.60-1.40); POTASSIUM 3.5 mmol/L (3.5-5.1)
[2017-03-26 08:15] VITALS: BP 121/82; PULSE 64; TEMP 36.6; O2SAT 98
--- NOTE | 2017-03-26 09:09 | Progress Note ---
Progress Note Date of Service Mar 26, 2017. Progress Note ID Consult Dictated #[id number] A/P: 1. LLE wound/cellulitis -continue abx, await final cultures -wound care eval pending -Will follow, thank you
[2017-03-26] MEDS: LISINOPRIL 20 MG TAB PO SCH (09:10)
[2017-03-26] MEDS: METOPROLOL TARTRATE 50 MG TAB PO SCH ×2 (09:10→20:04)
[2017-03-26] MEDS: ISOSORBIDE MONONITRATE 60 MG TABCR PO SCH (09:10)
[2017-03-26] MEDS: GABAPENTIN 100 MG CAP PO SCH ×3 (09:10→20:04)
[2017-03-26] MEDS: FUROSEMIDE 80 MG TAB PO SCH ×2 (09:11→17:56)
[2017-03-26] MEDS: ALLOPURINOL 300 MG TAB PO SCH (09:11)
[2017-03-26] MEDS: PANTOprazole SOD 40 MG TAB PO SCH ×2 (09:11→20:04)
[2017-03-26] MEDS: INSULIN GLARGINE SOLOSTAR 100 UNITS/ML 3 ML PEN SC SCH (09:20)
[2017-03-26] MEDS: INSULIN ASPART 100 UNITS/ML 3 ML PEN SC SCH ×4 (09:20→21:09)
[2017-03-26 09:24] VITALS: BP 128/80; PULSE 73
--- NOTE | 2017-03-26 10:05 | Pharmacy Progress Note ---
Pharmacy Glycemic Short Note 2 Date of Service Mar 26, 2017. OUTPATIENT ANTIDIABETIC REGIMEN: * Novolog 70/30 55 units in the morning and 35 units in the PM ASSESSMENT: * Mr Macedo is an 81 y/o M with a PMH of CABG, PE, and Afib on warfarin who presented with bilateral leg cellulitis with underlying chronic venous stasis. Yesterday, the patient received around 80 units of insulin - 50 units of basal. Blood sugars ranged from 125- 201 mg/dL and trended upwards throughout the day. Estimate requires around 95-100 units/day. * Fasting blood sugar is 142 mg/dL. Increase AM dose of Lantus because at home, patient receives more basal insulin the morning than evening. Tightened Novolog parameters slightly due to increasing blood sugars throughout the day. PLAN FOR INPATIENT GLYCEMIC CONTROL: * Basal insulin * Lantus 28 units SQ in morning and 25 units in PM * Bolus insulin * NovoLog per scale ACHS or Q6hrs while NPO * Goal Range: Low 110 mg/dL - High 140 mg/dL * Correction Factor: 12 mg/dL/unit * Nutritional / Prandial insulin per carb ratio of 1 unit per 4 grams CHO consumed PLAN FOR DISCHARGE: * Patient's HbA1C indicates improvement from December of last year. Reasonable to continue current regimen.
--- NOTE | 2017-03-26 11:23 | INFECT. DISEASE CONSULTATION ---
DATE OF CONSULTATION: 03/26/2017 HISTORY OF PRESENT ILLNESS: This is an 81-year-old gentleman who came to the Emergency Room for left lower extremity wound. He does follow at the wound care center and also follows with infectious diseases. He was recently discharged from the wound care center, but then had worsening wounds and has been following again. He did recently have a culture dated March 07, which grew coagulase negative staph. He is currently not on any antibiotics, but states that the antibiotics were stopped by his land surveying survey worker due to the worsening creatinine. He cannot recall the name of the antibiotic, but per the H&P, he recently had Bactrim and Omnicef for a history of MRSA and Proteus. He states that his legs are improved. There is minimal swelling. He denies any drainage. He denies any fevers or chills. He is currently out of bed and eating breakfast. He denies any pain with ambulation. His remaining review of systems is reviewed and unremarkable. PAST MEDICAL HISTORY: Significant for AFib, coronary artery disease, gout, chronic kidney disease, type 2 diabetes, high cholesterol, GERD, hypertension, ischemic cardiomyopathy, obstructive sleep apnea with BiPAP, renal calculi. PAST SURGICAL HISTORY: Includes knee surgery, right shoulder replacement and a left knee replacement. FAMILY HISTORY: Noncontributory. SOCIAL HISTORY: Significant for history of tobacco use. He denies any alcohol or drug use. ALLERGIES: He has no known drug allergies. MEDICATIONS: Include Coumadin, Lantus, Lasix, allopurinol, Imdur, Zestril, prednisone, albuterol, vancomycin, Remeron, Crestor, Zosyn, Neurontin, Lopressor, Protonix, Percocet, Senokot, Ultram, Zofran and Tylenol. PHYSICAL EXAMINATION: VITAL SIGNS: He is afebrile, pulse 64, respiratory rate 20, blood pressure 121/82, oxygen saturation is 98% on room air. GENERAL: He is awake, alert and oriented x3. He is in no acute distress. HEENT: Mucous membranes are moist. Extraocular muscles are intact. HEART: Regular. LUNGS: Clear. ABDOMEN: Nondistended. EXTREMITIES: There are bilateral lower extremity dressings. There is minimal erythema with warmth. There is no drainage. There is bilateral lower extremity edema. LABORATORY STUDIES: CBC on the 10th reveals a white blood cell count of 8.4, hemoglobin 12.3 and platelets of 134. Chemistry panel this morning reveals a sodium of 135, potassium 3.5, chloride 103, bicarbonate 22, BUN 46, creatinine 2.1, glucose is 137. Wound culture from the 10th is growing Staph aureus. Blood cultures from the 9th are no growth to date. There is no imaging to review. ASSESSMENT AND PLAN: Left lower extremity cellulitis with wound culture growing Staph aureus. He will be continued on his current antibiotics pending final sensitivities. His blood cultures are negative. He will likely be transitioned to oral antibiotics upon discharge, but he will maintain IV antibiotics pending final culture results. Thank you for this consultation.
[2017-03-26 14:58] VITALS: BP 113/59; PULSE 79; TEMP 36.6; O2SAT 93
[2017-03-26] MEDS: WARFARIN SOD 10 MG TAB PO SCH (15:26)
[2017-03-26 20:02] VITALS: BP 122/81; PULSE 83
--- NOTE | 2017-03-26 20:19 | Progress Note ---
Medicine Progress Note Date & Time of Visit: Mar 26, 2017 at 16:00 . Subjective CC: Follow-up visit for multiple problems. HPI: Admitted with cellulitis of left lower extremity with underlying venous stasis ulcers. Afebrile. Legs feel a bit better. ROS: General- as noted above in HPI Resp- no cough; dyspnea at baseline Cardiac- no chest pain, chronic edema GI- no nausea, no vomiting, no diarrhea - o difficulty voiding . Objective Last 8 Hrs Date Time Temp Pulse Resp B/P (MAP) Pulse Ox O2 Delivery O2 Flow Rate FiO2 03/26/17 20:02 83 122/81 (95) 03/26/17 15:20 Room Air 03/26/17 14:58 36.6 79 20 113/59 (77) 93 Room Air Physical Exam: General- sitting in chair; no distress Lungs- clear to auscultation; no respiratory distress Cardiovascular- irregular; no murmur or gallop appreciated; 3+ pretibial edema Abdomen- + bowel sounds, soft, nontender Extremities- no cyanosis; no calf tenderness; legs bandaged Neuro- alert, oriented Skin- warm & dry . Laboratory Results: Last 24 Hours Test 03/26/17 06:43 03/26/17 08:06 03/26/17 11:25 03/26/17 16:44 Prothrombin Time 22.6 SECONDS Prothromb Time International Ratio 2.2 Sodium Level 135 mmol/L Potassium Level 3.5 mmol/L Chloride Level 103 mmol/L Carbon Dioxide Level 22 mmol/L Anion Gap 10.0 mmol/L Blood Urea Nitrogen 46 mg/dl Creatinine 2.19 mg/dl Est Creatinine Clear Calc Drug Dose 39.6 ml/min Estimated GFR () 31.6 Estimated GFR (Non- 27.2 BUN/Creatinine Ratio 21.0 Random Glucose 142 mg/dl Calcium Level 8.5 mg/dl Bedside Glucose 137 mg/dl 152 mg/dl 210 mg/dl Test 03/26/17 20:08 Bedside Glucose 182 mg/dl Assessment & Plan RECURRENT CELLULITIS / VENOUS STASIS ULCERS Continue vancomycin and piperacillin /tazobactam. Wound Care and ID consulted. CORONARY ARTERY DISEASE No anginal symptoms. Continue metoprolol, nitrates, statin. ATRIAL FIBRILLATION Continue metoprolol and warfarin. HYPERTENSION Continue metoprolol and nitrates. Follow and titrate Rx. SLEEP APNEA Continue BiPAP. CKD III Serum creatinine at time of admission was 2.15. Serum creatinine today = 2.19. Follow. DM TYPE 2 Fairly well-controlled. Hgb A1C 7.9. Pharmacy consulted for glycemic management. FBS today = 137. DYSLIPIDEMIA Continue rosuvastatin. GOUT Continue allopurinol. VTE PROPHYLAXIS Continue warfarin. Ambulate as able. DISPOSITION To be determined. Family Medicine follow-up with Dr. Ryder. . Current Inpatient Medications: Current Inpatient Medications Medications (Trade) Dose Ordered Sig/Aileen Route Start Time Stop Time Status Last Admin Dose Admin Acetaminophen (Tylenol Tab) 650 mg Q4H PRN PO 03/24/17 16:00 04/23/17 15:59 Ondansetron HCl (Zofran Inj) 4 mg Q6H PRN IV 03/24/17 16:00 04/23/17 15:59 Miscellaneous Information (Consult) 1 ea UD PRN N/A 03/24/17 16:15 04/23/17 16:14 Miscellaneous Information (Consult) 1 UD PRN N/A 03/24/17 16:15 04/23/17 16:14 Insulin Aspart (novoLOG ASPART) SLIDING SCALE If C... ACHS SC 03/24/17 17:22 04/23/17 17:21 03/26/17 17:59 24 UNITS Glucose (Glucose 40% Gel) 15-30 GRAMS 15 GRAMS... UD PRN PO 03/24/17 16:30 04/23/17 16:29 Glucose (Glucose Chew Tab) 4-8 Tablets 4 Tabl... UD PRN PO 03/24/17 16:30 04/23/17 16:29 Dextrose (Dextrose 50% 50ML Syringe) 25-50ML OF 50% DW IV FOR... UD PRN IV 03/24/17 16:30 04/23/17 16:29 Glucagon (Glucagon Inj) 1 mg UD PRN SQ 03/24/17 16:30 04/23/17 16:29 Miscellaneous Information (Consult Glycemic Management Pharmacy) 1 ea UD N/A 03/24/17 16:58 04/23/17 16:57 Piperacillin Sod/ Tazobactam Sod 4.5 gm/Dextrose 120 ml @ 30 mls/hr Q8H IV 2/9/18 20:00 04/03/17 19:59 03/26/17 20:02 30 MLS/HR Vancomycin HCl 2250 mg/Sodium Chloride 545 ml @ 200 mls/hr Q24H IV 03/24/17 21:00 04/03/17 20:59 03/25/17 22:06 200 MLS/HR Allopurinol (Zyloprim Tab) 450 mg QAM PO 03/25/17 08:00 04/24/17 08:59 03/26/17 09:11 450 MG Gabapentin (Neurontin Cap) 100 mg TID PO 03/24/17 20:00 04/23/17 20:59 03/26/17 20:04 100 MG Acetaminophen/ Hydrocodone Bitart ([place] 5/325 Tab) 1 tab TID PRN PO 03/24/17 17:00 04/07/17 16:59 03/25/17 00:59 1 TAB Isosorbide Mononitrate (Imdur Ext Rel Tab) 60 mg QAM PO 03/25/17 08:00 04/24/17 08:59 03/26/17 09:10 60 MG Lisinopril (Zestril Tab) 20 mg DAILY PO 03/25/17 08:00 04/24/17 08:59 03/26/17 09:10 20 MG Metoprolol Tartrate (Lopressor Tab) 50 mg BID PO 03/24/17 20:00 04/23/17 20:59 03/26/17 20:04 50 MG Mirtazapine (Remeron Solutab) 15 mg HS PO 03/24/17 21:00 04/23/17 20:59 03/25/17 22:06 15 MG Prednisone (PredniSONE TAB) 5 mg DAILY PO 03/25/17 08:00 04/24/17 08:59 03/26/17 09:10 5 MG Rosuvastatin Calcium (Crestor Tab) 10 mg QPM PO 03/24/17 21:00 04/23/17 20:59 03/25/17 20:16 10 MG Senna/Docusate Sodium (Senokot S Tab) 1 tab DAILY PRN PO 03/24/17 17:00 04/23/17 16:59 Tramadol HCl (Ultram Tab) 50 mg Q6 PRN PO 03/24/17 17:00 04/23/17 16:59 Warfarin Sodium (Coumadin Tab) 5 mg TuTh@1600 PO 03/28/17 16:00 04/27/17 15:59 Pantoprazole Sodium (Protonix Tab) 40 mg BID PO 03/24/17 20:00 04/23/17 20:59 03/26/17 20:04 40 MG Warfarin Sodium (Coumadin Tab) 10 mg SuMoWeFrSa@1600 PO 03/25/17 16:00 04/23/17 17:59 03/26/17 15:26 10 MG Albuterol (Ventolin Hfa Inhaler) 2 puffs Q6H PRN INH 03/25/17 03:45 04/24/17 03:44 Furosemide (Lasix Tab) 80 mg BID17 PO 03/26/17 09:00 04/25/17 08:59 03/26/17 17:56 80 MG Insulin Glargine (Lantus Solostar Pen) 28 units QAM SC 03/26/17 08:00 04/25/17 07:59 03/26/17 09:20 28 UNITS Insulin Glargine (Lantus Solostar Pen) 25 units QPM SC 03/26/17 21:00 04/25/17 20:59
[2017-03-26] MEDS ORDERED: INSULIN GLARGINE SOLOSTAR 100 UNITS/ML 3 ML PEN SC SCH (21:00)
[2017-03-26] MEDS: MIRTAZAPINE SOLTAB 15 MG PO SCH (21:06)
[2017-03-26] MEDS: ROSUVASTATIN CALCIUM 10 MG TAB PO SCH (21:06)
[2017-03-26] MEDS ORDERED: VANCOMYCIN TROUGH ONE (21:30)
[2017-03-26] MEDS: VANCOMYCIN INJ 2,250 MG in SODIUM CHLORIDE 0.9% 500ML 500 ML IV SCH (21:37)
[2017-03-26 23:24] VITALS: BP 154/54; PULSE 74; TEMP 36.7; O2SAT 95
[2017-03-27] MEDS: PIPERACILL/TAZOBAC IV 4.5 GM in DEXTROSE 5% 100ML 100 ML IV SCH (04:24)
[2017-03-27 07:21] VITALS: BP 103/74; PULSE 74; TEMP 36.6; O2SAT 95
[2017-03-27 07:57] LABS: INR 2.6 (0.9-1.1)
[2017-03-27 08:17] LABS: CALCIUM 8.4 mg/dl (8.5-10.1); CREATININE 2.08 mg/dl (0.60-1.40); POTASSIUM 3.5 mmol/L (3.5-5.1)
[2017-03-27] MEDS: ISOSORBIDE MONONITRATE 60 MG TABCR PO SCH (08:27)
[2017-03-27] MEDS: ALLOPURINOL 300 MG TAB PO SCH (08:27)
[2017-03-27] MEDS: METOPROLOL TARTRATE 50 MG TAB PO SCH ×2 (08:28→20:34)
[2017-03-27] MEDS: LISINOPRIL 20 MG TAB PO SCH (08:28)
[2017-03-27] MEDS: GABAPENTIN 100 MG CAP PO SCH ×3 (08:29→20:34)
[2017-03-27] MEDS: FUROSEMIDE 80 MG TAB PO SCH ×2 (08:29→17:49)
[2017-03-27] MEDS: PANTOprazole SOD 40 MG TAB PO SCH ×2 (08:30→20:32)
[2017-03-27] MEDS: INSULIN ASPART 100 UNITS/ML 3 ML PEN SC SCH ×4 (08:33→20:37)
[2017-03-27] MEDS: INSULIN GLARGINE SOLOSTAR 100 UNITS/ML 3 ML PEN SC SCH (08:34)
--- NOTE | 2017-03-27 10:46 | Progress Note ---
Subjective Date of Service: Mar 27, 2017. Subjective pt oob to chair, sleeping. legs elevated. dressing intact. blood cultures negative. wound culture with S. aureus, final pending. tolerating abx. creat slowly improving. afebrile. Problem List Medical Problems: (1) A-fib Status: Acute (2) Abnormal ECG Status: Acute (3) Acute electrocardiogram changes Status: Acute (4) Acute electrocardiogram changes Status: Acute (5) Acute kidney injury Status: Acute (6) Anemia Status: Acute (7) Atrial fibrillation with RVR Status: Acute (8) CHF (congestive heart failure) Status: Acute (9) Dysphagia Status: Acute (10) Edema Status: Acute (11) Hyperglycemia Status: Acute (12) Hypoglycemia Status: Acute (13) Hypoglycemia Status: Acute (14) Hypoglycemia Status: Acute (15) Hypoxia Status: Acute (16) Insulin dependent diabetes mellitus Status: Acute (17) Jaw pain Status: Acute (18) NSTEMI (non-ST elevated myocardial infarction) Status: Acute (19) Right leg pain Status: Acute (20) Supratherapeutic INR Status: Acute Objective Vital Signs Date Time Temp Pulse Resp B/P (MAP) Pulse Ox O2 Delivery O2 Flow Rate FiO2 03/27/17 07:40 Room Air 03/27/17 07:21 36.6 74 20 103/74 (84) 95 BiPAP 03/27/17 00:00 CPAP 2.0 03/26/17 23:24 36.7 74 20 154/54 (87) 95 CPAP 03/26/17 20:02 83 122/81 (95) 03/26/17 15:20 Room Air 03/26/17 14:58 36.6 79 20 113/59 (77) 93 Room Air Physical Exam General Appearance: no apparent distress Neck: supple Respiratory/Chest: no respiratory distress Skin: normal color Comments: dressings intact Laboratory Results Item Value Date Time Gram Stain - Final Resulted 03/25/17 1630 Ulcer Leg Lower Left Gram Stain - Final Resulted 03/25/17 1630 Ulcer Leg Right Lower Blood Culture - Preliminary Resulted 03/24/17 1335 Blood NO GROWTH TO DATE. Blood Culture - Preliminary Resulted 03/24/17 1247 Blood NO GROWTH TO DATE. Last 24 Hours Test 03/26/17 11:25 03/26/17 16:44 2/11/18 20:08 03/26/17 20:51 Bedside Glucose 152 mg/dl 210 mg/dl 182 mg/dl Vancomycin Level Trough 25.2 mcg/ml Test 03/27/17 07:12 03/27/17 07:37 Prothrombin Time 26.3 SECONDS Prothromb Time International Ratio 2.6 Sodium Level 139 mmol/L Potassium Level 3.5 mmol/L Chloride Level 105 mmol/L Carbon Dioxide Level 23 mmol/L Anion Gap 11.0 mmol/L Blood Urea Nitrogen 40 mg/dl Creatinine 2.08 mg/dl Est Creatinine Clear Calc Drug Dose 41.7 ml/min Estimated GFR () 33.6 Estimated GFR (Non- 29.0 BUN/Creatinine Ratio 19.2 Random Glucose 95 mg/dl Calcium Level 8.4 mg/dl Bedside Glucose 101 mg/dl Assessment and Plan (1) Cellulitis Assessment & Plan: continue vanco for now, stop zosyn. hopefully can change to po abx soon, avoid neprhotoxic agents. will need continue wound center followup.
--- NOTE | 2017-03-27 11:47 | Pharmacy Progress Note ---
Pharmacy Abx Dose Short Note Date of Service Mar 27, 2017. Assessment & Plan Assessment 81 year old male receiving vancomycin for treatment of cellulitis Day # 3 of antimicrobial therapy. Plan Vancomycin * Trough level of 25.2 mcg/mL is supratherapeutic. * HOLD dose as patient received dose last night. Expect that dose to have peak of 50 mcg/mL with extended half-life past 24 hours. * Goal trough level for cellulitis with h/o MRSA ANITRA of 2 : 15 to 20 mcg/mL * Random level ordered for: 03/28/17 Pharmacy will continue to follow and will adjust dose/frequency as necessary. Thank you.
[2017-03-27 15:19] VITALS: BP 126/71; PULSE 66; TEMP 36.7; O2SAT 97
[2017-03-27] MEDS: WARFARIN SOD 10 MG TAB PO SCH (17:49)
--- NOTE | 2017-03-27 19:33 | Progress Note ---
Medicine Progress Note Date & Time of Visit: Mar 27, 2017 at 11:15 . Subjective CC: Follow-up visit for multiple problems. HPI: Afebrile. Legs feel better; trying to keep them elevated ROS: General- as noted above in HPI Resp- no cough or SOB. Cardiac- no chest pain, chronic edema GI- constipated; no nausea, no vomiting, no diarrhea - no difficulty voiding; no hematuria . Objective Last 8 Hrs Date Time Temp Pulse Resp B/P (MAP) Pulse Ox O2 Delivery O2 Flow Rate FiO2 03/27/17 15:19 36.7 66 20 126/71 (89) 97 Room Air Physical Exam: General- sitting in chair with legs elevated; no distress Lungs- clear to auscultation; no respiratory distress Cardiovascular- irregular; no murmur or gallop appreciated; no JVD; 3+ pretibial edema Abdomen- + bowel sounds, soft, nontender Extremities- no cyanosis; no calf tenderness; legs bandaged Neuro- alert, oriented Skin- warm & dry . Laboratory Results: Last 24 Hours Test 03/26/17 20:08 03/26/17 20:51 03/27/17 07:12 03/27/17 07:37 Bedside Glucose 182 mg/dl 101 mg/dl Vancomycin Level Trough 25.2 mcg/ml Prothrombin Time 26.3 SECONDS Prothromb Time International Ratio 2.6 Sodium Level 139 mmol/L Potassium Level 3.5 mmol/L Chloride Level 105 mmol/L Carbon Dioxide Level 23 mmol/L Anion Gap 11.0 mmol/L Blood Urea Nitrogen 40 mg/dl Creatinine 2.08 mg/dl Est Creatinine Clear Calc Drug Dose 41.7 ml/min Estimated GFR () 33.6 Estimated GFR (Non- 29.0 BUN/Creatinine Ratio 19.2 Random Glucose 95 mg/dl Calcium Level 8.4 mg/dl Test 03/27/17 11:20 Bedside Glucose 122 mg/dl Assessment & Plan RECURRENT CELLULITIS / VENOUS STASIS ULCERS Initially received IV vancomycin and piperacillin /tazobactam. Wound Care and ID consulted. Wound cultures growing Staph aureus, sensitivities pending. Piperacillin / tazobactam discontinued. Continue IV vancomycin. Continue local care. CORONARY ARTERY DISEASE No anginal symptoms. Continue metoprolol, nitrates, statin. ATRIAL FIBRILLATION Continue metoprolol and warfarin. HYPERTENSION Continue metoprolol and nitrates. Follow and titrate Rx. SLEEP APNEA Continue BiPAP. CKD III Serum creatinine at time of admission was 2.15. Serum creatinine today = 2.08. Follow. DM TYPE 2 Fairly well-controlled. Hgb A1C 7.9. Pharmacy consulted for glycemic management. FBS today = 101. DYSLIPIDEMIA Continue rosuvastatin. GOUT Continue allopurinol. VTE PROPHYLAXIS Continue warfarin. Ambulate as able. DISPOSITION To be determined. Family Medicine follow-up with Dr. Ryder. . Current Inpatient Medications: Current Inpatient Medications Medications (Trade) Dose Ordered Sig/Aileen Route Start Time Stop Time Status Last Admin Dose Admin Acetaminophen (Tylenol Tab) 650 mg Q4H PRN PO 03/24/17 16:00 04/23/17 15:59 Ondansetron HCl (Zofran Inj) 4 mg Q6H PRN IV 03/24/17 16:00 04/23/17 15:59 Miscellaneous Information (Consult) 1 ea UD PRN N/A 03/24/17 16:15 04/23/17 16:14 Insulin Aspart (novoLOG ASPART) SLIDING SCALE If C... ACHS SC 03/24/17 17:22 04/23/17 17:21 03/27/17 17:52 17 UNITS Glucose (Glucose 40% Gel) 15-30 GRAMS 15 GRAMS... UD PRN PO 03/24/17 16:30 04/23/17 16:29 Glucose (Glucose Chew Tab) 4-8 Tablets 4 Tabl... UD PRN PO 03/24/17 16:30 04/23/17 16:29 Dextrose (Dextrose 50% 50ML Syringe) 25-50ML OF 50% DW IV FOR... UD PRN IV 03/24/17 16:30 04/23/17 16:29 Glucagon (Glucagon Inj) 1 mg UD PRN SQ 03/24/17 16:30 04/23/17 16:29 Miscellaneous Information (Consult Glycemic Management Pharmacy) 1 ea UD N/A 03/24/17 16:58 04/23/17 16:57 Vancomycin HCl 2250 mg/Sodium Chloride 545 ml @ 200 mls/hr Q24H IV 03/24/17 21:00 04/03/17 20:59 Future Hold 03/26/17 21:37 200 MLS/HR Allopurinol (Zyloprim Tab) 450 mg QAM PO 03/25/17 08:00 04/24/17 08:59 03/27/17 08:27 450 MG Gabapentin (Neurontin Cap) 100 mg TID PO 03/24/17 20:00 04/23/17 20:59 03/27/17 13:26 100 MG Acetaminophen/ Hydrocodone Bitart ([place] 5/325 Tab) 1 tab TID PRN PO 03/24/17 17:00 04/07/17 16:59 03/25/17 00:59 1 TAB Isosorbide Mononitrate (Imdur Ext Rel Tab) 60 mg QAM PO 03/25/17 08:00 04/24/17 08:59 03/27/17 08:27 60 MG Lisinopril (Zestril Tab) 20 mg DAILY PO 03/25/17 08:00 04/24/17 08:59 03/27/17 08:28 20 MG Metoprolol Tartrate (Lopressor Tab) 50 mg BID PO 03/24/17 20:00 04/23/17 20:59 03/27/17 08:28 50 MG Mirtazapine (Remeron Solutab) 15 mg HS PO 03/24/17 21:00 04/23/17 20:59 03/26/17 21:06 15 MG Prednisone (PredniSONE TAB) 5 mg DAILY PO 03/25/17 08:00 04/24/17 08:59 03/27/17 08:30 5 MG Rosuvastatin Calcium (Crestor Tab) 10 mg QPM PO 03/24/17 21:00 04/23/17 20:59 03/26/17 21:06 10 MG Senna/Docusate Sodium (Senokot S Tab) 1 tab DAILY PRN PO 03/24/17 17:00 04/23/17 16:59 Tramadol HCl (Ultram Tab) 50 mg Q6 PRN PO 03/24/17 17:00 04/23/17 16:59 Warfarin Sodium (Coumadin Tab) 5 mg TuTh@1600 PO 03/28/17 16:00 04/27/17 15:59 Pantoprazole Sodium (Protonix Tab) 40 mg BID PO 03/24/17 20:00 04/23/17 20:59 03/27/17 08:30 40 MG Warfarin Sodium (Coumadin Tab) 10 mg SuMoWeFrSa@1600 PO 03/25/17 16:00 04/23/17 17:59 03/27/17 17:49 10 MG Albuterol (Ventolin Hfa Inhaler) 2 puffs Q6H PRN INH 03/25/17 03:45 04/24/17 03:44 Furosemide (Lasix Tab) 80 mg BID17 PO 03/26/17 09:00 04/25/17 08:59 03/27/17 17:49 80 MG Insulin Glargine (Lantus Solostar Pen) 25 units BID SC 03/28/17 08:00 04/27/17 07:59 Insulin Glargine (Lantus Solostar Pen) SEE PROTOCOL TEXT TODAY@2100 SC 03/27/17 21:00 03/27/17 23:59 Senna/Docusate Sodium (Senokot S Tab) 1 tab BID PO 03/27/17 20:00 04/26/17 19:59
[2017-03-27 19:44] VITALS: PULSE 82; O2SAT 94
[2017-03-27] MEDS ORDERED: INSULIN GLARGINE SOLOSTAR 100 UNITS/ML 3 ML PEN SC SCH ×2 (20:00→21:00)
[2017-03-27] MEDS: DOCUSATE SODIUM/SENNA 50/8.6MG TAB PO SCH (20:33)
[2017-03-27] MEDS: ROSUVASTATIN CALCIUM 10 MG TAB PO SCH (20:34)
[2017-03-27] MEDS: MIRTAZAPINE SOLTAB 15 MG PO SCH (20:34)
[2017-03-27 23:55] VITALS: BP 125/80; PULSE 78; TEMP 36.5; O2SAT 95
[2017-03-28 06:46] LABS: INR 2.5 (0.9-1.1)
[2017-03-28 07:09] LABS: CALCIUM 8.4 mg/dl (8.5-10.1); CREATININE 1.91 mg/dl (0.60-1.40); POTASSIUM 3.5 mmol/L (3.5-5.1)
[2017-03-28 07:20] VITALS: BP 126/75; PULSE 77; TEMP 36.5; O2SAT 97
[2017-03-28] MEDS: LISINOPRIL 20 MG TAB PO SCH (07:46)
[2017-03-28] MEDS: ALLOPURINOL 300 MG TAB PO SCH (07:46)
[2017-03-28] MEDS: FUROSEMIDE 80 MG TAB PO SCH ×2 (07:46→16:10)
[2017-03-28] MEDS: DOCUSATE SODIUM/SENNA 50/8.6MG TAB PO SCH ×2 (07:46→19:49)
[2017-03-28] MEDS: PANTOprazole SOD 40 MG TAB PO SCH ×2 (07:47→19:49)
[2017-03-28] MEDS: GABAPENTIN 100 MG CAP PO SCH ×3 (07:47→19:48)
[2017-03-28] MEDS: ISOSORBIDE MONONITRATE 60 MG TABCR PO SCH (07:47)
[2017-03-28] MEDS: METOPROLOL TARTRATE 50 MG TAB PO SCH ×2 (07:47→19:48)
[2017-03-28] MEDS ORDERED: INSULIN GLARGINE SOLOSTAR 100 UNITS/ML 3 ML PEN SC SCH (08:00)
[2017-03-28] MEDS: INSULIN GLARGINE SOLOSTAR 100 UNITS/ML 3 ML PEN SC SCH ×2 (08:40→19:55)
[2017-03-28] MEDS: INSULIN ASPART 100 UNITS/ML 3 ML PEN SC SCH ×4 (08:40→19:54)
--- NOTE | 2017-03-28 09:16 | Clinical Documentation Query ---
CLINICAL DOCUMENTATION QUERY 81 yo male patient presenting with increasing LLE erythema and edema, wound on the proximal left fuller. In your clinical opinion is this patient being managed for: ( ) Acute kidney failure, resolving ( ) Not Agree ( ) Other explanation of clinical findings (Please Explain) ( ) Unable to determine (Please Define) ( ) Need to Discuss The medical record reflects the following clinical findings, treatment, and risk factors. Clinical Indicators: Creatinine levels 1.7's on 12/2016 trending up to 2.28 this admission; currently 1.91 Treatment: IV hydration, serial PRPs Risk Factors: Age, CKD, DM Please clarify and document your clinical opinion in the progress notes and discharge summary. Terms such as "probable", "suspected", "likely", "questionable", "possible", or "still to be ruled out" are acceptable. IF IN AGREEMENT, YOU MUST DOCUMENT ABOVE DIAGNOSTIC STATEMENT IN DAILY PROGRESS NOTES AND DISCHARGE SUMMARY. This document is not part of the patient's record. Thank You, Areli Partida RN [phone]
--- NOTE | 2017-03-28 10:35 | Progress Note ---
Subjective Date of Service: Mar 28, 2017. Subjective Patient is out of the chair. He is resting comfortably. He is afebrile. He remains on vancomycin. He is tolerating this well. He remains with bilateral lower extremity dressings which are intact. His pain is controlled. His creatinine is 1.9 today. Problem List Medical Problems: (1) A-fib Status: Acute (2) Abnormal ECG Status: Acute (3) Acute electrocardiogram changes Status: Acute (4) Acute electrocardiogram changes Status: Acute (5) Acute kidney injury Status: Acute (6) Anemia Status: Acute (7) Atrial fibrillation with RVR Status: Acute (8) CHF (congestive heart failure) Status: Acute (9) Dysphagia Status: Acute (10) Edema Status: Acute (11) Hyperglycemia Status: Acute (12) Hypoglycemia Status: Acute (13) Hypoglycemia Status: Acute (14) Hypoglycemia Status: Acute (15) Hypoxia Status: Acute (16) Insulin dependent diabetes mellitus Status: Acute (17) Jaw pain Status: Acute (18) NSTEMI (non-ST elevated myocardial infarction) Status: Acute (19) Right leg pain Status: Acute (20) Supratherapeutic INR Status: Acute Objective Vital Signs Date Time Temp Pulse Resp B/P (MAP) Pulse Ox O2 Delivery O2 Flow Rate FiO2 03/28/17 08:00 Room Air 03/28/17 07:20 36.5 77 20 126/75 (92) 97 Room Air 03/28/17 00:00 CPAP 2.0 03/27/17 23:55 36.5 78 20 125/80 (95) 95 Room Air 03/27/17 19:44 82 94 2.0 03/27/17 16:00 Room Air 03/27/17 15:19 36.7 66 20 126/71 (89) 97 Room Air Physical Exam General Appearance: WD/WN Neck: supple Respiratory/Chest: no respiratory distress Extremities: + pertinent finding (Bilateral lower extremity dressings are clean dry and intact) Skin: normal color Laboratory Results Item Value Date Time Gram Stain - Final Complete 03/25/17 1630 Ulcer Leg Right Lower Gram Stain - Final Complete 03/25/17 1630 Ulcer Leg Lower Left Blood Culture - Preliminary Resulted 03/24/17 1335 Blood NO GROWTH TO DATE. Blood Culture - Preliminary Resulted 03/24/17 1247 Blood NO GROWTH TO DATE. Last 24 Hours Test 03/27/17 11:20 03/27/17 16:42 03/27/17 20:28 03/28/17 06:13 Bedside Glucose 122 mg/dl 165 mg/dl 142 mg/dl Prothrombin Time 25.5 SECONDS Prothromb Time International Ratio 2.5 Sodium Level 139 mmol/L Potassium Level 3.5 mmol/L Chloride Level 106 mmol/L Carbon Dioxide Level 24 mmol/L Anion Gap 9.0 mmol/L Blood Urea Nitrogen 39 mg/dl Creatinine 1.91 mg/dl Est Creatinine Clear Calc Drug Dose 45.4 ml/min Estimated GFR () 37.2 Estimated GFR (Non- 32.1 BUN/Creatinine Ratio 20.5 Random Glucose 82 mg/dl Calcium Level 8.4 mg/dl Random Vancomycin Level 22.6 mcg/ml Test 03/28/17 07:38 Bedside Glucose 84 mg/dl Assessment and Plan (1) Cellulitis Assessment & Plan: At this time from infectious diseases standpoint he could be transitioned to oral doxycycline. This will not interfere with his renal improvement. Bactrim should be avoided in the future. He will likely need at least 21 day course of antibiotics but certainly can be followed in the [facility] post discharge from the hospital. I do not see any contraindication to discharge from infectious diseases standpoint. He will continue with local wound care after discharge.
--- NOTE | 2017-03-28 11:51 | Pharmacy Progress Note ---
Pharmacy Glycemic Short Note 2 Date of Service Mar 28, 2017. OUTPATIENT ANTIDIABETIC REGIMEN: * Novolog 70/30 premixed insulin: 55 units in the morning and 35 units in the PM * A1c = 7.9% on 03/25/17 ASSESSMENT: * Patient has been requiring ~ 100 units of insulin per day for adequate control * 48 units of basal insulin with Lantus (28 units in AM + 23 units in PM) * 52 units of prandial/correctional insulin with NovoLog per CF/CR of 01/16 respectively * BSGs 03/27: 101, 122, 165, 142 * BSGs 03/28: 828 * Goal BSG range is <150 mg/dl to promote wound healing. * AM fasting BSG is slightly below goal range at 82mg/dl today. Decrease in basal insulin is warranted. Prednisone dosing continues at 5mg daily. Post- prandial BSGs are in goal range, no change needed to CF/CR insulin parameters. PLAN FOR INPATIENT GLYCEMIC CONTROL: * Basal insulin: decrease dose for below goal range AM fasting BSG * Lantus 23 units SQ BID * Bolus insulin: no change * NovoLog per scale ACHS or Q6hrs while NPO * Goal Range: Low 110 mg/dL - High 150 mg/dL * Correction Factor: 12 mg/dL/unit * Nutritional / Prandial insulin per carb ratio of 1 unit per 4 grams CHO consumed PLAN FOR DISCHARGE: * Patient's HbA1C indicates improvement from December of last year. Reasonable to continue current regimen.
[2017-03-28] MEDS: DOXYCYCLINE HYCLATE 100 MG CAP PO SCH ×2 (14:58→19:49)
[2017-03-28 15:14] VITALS: BP 114/81; PULSE 82; TEMP 36.7; O2SAT 94
[2017-03-28] MEDS ORDERED: WARFARIN SOD 5 MG TAB PO SCH (16:00)
--- NOTE | 2017-03-28 18:41 | Progress Note ---
Medicine Progress Note Date & Time of Visit: Mar 28, 2017 at 15:26. Subjective Pt was seen and examined Sitting in chair with no distress watching TV Pt said that he feels fine Denies any chest pain, palpitation and SOB Objective Last 8 Hrs Date Time Temp Pulse Resp B/P (MAP) Pulse Ox O2 Delivery O2 Flow Rate FiO2 03/28/17 16:00 Room Air 03/28/17 15:14 36.7 82 20 114/81 (92) 94 Room Air Physical Exam: General- No acute distress Head- atraumatic Eyes- PERRL, EOMI ENT- oropharynx clear Neck- supple, no JVD Lungs- No wheezing Heart- irregular rhythm Abdomen- normal bowel sounds, soft Extremities- No calf tenderness Neuro- alert, oriented x 3; PERRL, EOMI; no facial palsy Skin- warm & dry Laboratory Results: Last 24 Hours Test 03/27/17 20:28 03/28/17 06:13 03/28/17 07:38 03/28/17 11:37 Bedside Glucose 142 mg/dl 84 mg/dl 145 mg/dl Prothrombin Time 25.5 SECONDS Prothromb Time International Ratio 2.5 Sodium Level 139 mmol/L Potassium Level 3.5 mmol/L Chloride Level 106 mmol/L Carbon Dioxide Level 24 mmol/L Anion Gap 9.0 mmol/L Blood Urea Nitrogen 39 mg/dl Creatinine 1.91 mg/dl Est Creatinine Clear Calc Drug Dose 45.4 ml/min Estimated GFR () 37.2 Estimated GFR (Non- 32.1 BUN/Creatinine Ratio 20.5 Random Glucose 82 mg/dl Calcium Level 8.4 mg/dl Random Vancomycin Level 22.6 mcg/ml Assessment & Plan RECURRENT CELLULITIS CHRONIC VENOUS STASIS ULCERS Was initially starting on IV vancomycin and piperacillin /tazobactam. Then Zosyn was discontinued after wound culture growth staph aureus ID on board recommended Doxycycline to complete 21 days course of abx Will D/C IV vancomycin. Continue daily wound care Follow up with the wound care clinic CORONARY ARTERY DISEASE Denies any chest pain. Continue metoprolol, nitrates, statin. ATRIAL FIBRILLATION Rate control Continue metoprolol and warfarin. HYPERTENSION BS stable Continue metoprolol and nitrates. SLEEP APNEA Continue BiPAP. CKD III Serum creatinine at time of admission was 2.15. Serum creatinine today = 1.9 Continue monitor BMP DM TYPE 2 Hgb A1C 7.9. Pharmacy consulted for glycemic management. Continue monitor BS DYSLIPIDEMIA Continue rosuvastatin. GOUT Continue allopurinol. VTE PROPHYLAXIS Continue warfarin, INR 2.5 Ambulate as able. DISPOSITION Plan to discharge home tomorrow Family Medicine follow-up with Dr. Ryder. Consultants: ID Current Inpatient Medications: Current Inpatient Medications Medications (Trade) Dose Ordered Sig/Aileen Route Start Time Stop Time Status Last Admin Dose Admin Acetaminophen (Tylenol Tab) 650 mg Q4H PRN PO 03/24/17 16:00 04/23/17 15:59 Ondansetron HCl (Zofran Inj) 4 mg Q6H PRN IV 03/24/17 16:00 04/23/17 15:59 Insulin Aspart (novoLOG ASPART) SLIDING SCALE If C... ACHS SC 03/24/17 17:22 04/23/17 17:21 03/28/17 18:10 25 UNITS Glucose (Glucose 40% Gel) 15-30 GRAMS 15 GRAMS... UD PRN PO 03/24/17 16:30 04/23/17 16:29 Glucose (Glucose Chew Tab) 4-8 Tablets 4 Tabl... UD PRN PO 03/24/17 16:30 04/23/17 16:29 Dextrose (Dextrose 50% 50ML Syringe) 25-50ML OF 50% DW IV FOR... UD PRN IV 03/24/17 16:30 04/23/17 16:29 Glucagon (Glucagon Inj) 1 mg UD PRN SQ 03/24/17 16:30 04/23/17 16:29 Miscellaneous Information (Consult Glycemic Management Pharmacy) 1 ea UD N/A 03/24/17 16:58 04/23/17 16:57 Allopurinol (Zyloprim Tab) 450 mg QAM PO 03/25/17 08:00 04/24/17 08:59 03/28/17 07:46 450 MG Gabapentin (Neurontin Cap) 100 mg TID PO 03/24/17 20:00 04/23/17 20:59 03/28/17 13:32 100 MG Acetaminophen/ Hydrocodone Bitart ([place] 5/325 Tab) 1 tab TID PRN PO 03/24/17 17:00 04/07/17 16:59 03/25/17 00:59 1 TAB Isosorbide Mononitrate (Imdur Ext Rel Tab) 60 mg QAM PO 03/25/17 08:00 04/24/17 08:59 03/28/17 07:47 60 MG Lisinopril (Zestril Tab) 20 mg DAILY PO 03/25/17 08:00 04/24/17 08:59 03/28/17 07:46 20 MG Metoprolol Tartrate (Lopressor Tab) 50 mg BID PO 03/24/17 20:00 04/23/17 20:59 03/28/17 07:47 50 MG Mirtazapine (Remeron Solutab) 15 mg HS PO 03/24/17 21:00 04/23/17 20:59 03/27/17 20:34 15 MG Prednisone (PredniSONE TAB) 5 mg DAILY PO 03/25/17 08:00 04/24/17 08:59 03/28/17 07:47 5 MG Rosuvastatin Calcium (Crestor Tab) 10 mg QPM PO 03/24/17 21:00 04/23/17 20:59 03/27/17 20:34 10 MG Senna/Docusate Sodium (Senokot S Tab) 1 tab DAILY PRN PO 03/24/17 17:00 04/23/17 16:59 Tramadol HCl (Ultram Tab) 50 mg Q6 PRN PO 03/24/17 17:00 04/23/17 16:59 Warfarin Sodium (Coumadin Tab) 5 mg TuTh@1600 PO 03/28/17 16:00 04/27/17 15:59 03/28/17 16:10 5 MG Pantoprazole Sodium (Protonix Tab) 40 mg BID PO 03/24/17 20:00 04/23/17 20:59 03/28/17 07:47 40 MG Warfarin Sodium (Coumadin Tab) 10 mg SuMoWeFrSa@1600 PO 03/25/17 16:00 04/23/17 17:59 03/27/17 17:49 10 MG Albuterol (Ventolin Hfa Inhaler) 2 puffs Q6H PRN INH 03/25/17 03:45 04/24/17 03:44 Furosemide (Lasix Tab) 80 mg BID17 PO 03/26/17 09:00 04/25/17 08:59 03/28/17 16:10 80 MG Senna/Docusate Sodium (Senokot S Tab) 1 tab BID PO 03/27/17 20:00 04/26/17 19:59 03/28/17 07:46 1 TAB Insulin Glargine (Lantus Solostar Pen) 23 units BID SC 03/28/17 08:00 04/27/17 07:59 03/28/17 08:40 23 UNITS Doxycycline Hyclate (Vibramycin Cap) 100 mg BID PO 03/28/17 14:30 04/07/17 14:29 03/28/17 14:58 100 MG
[2017-03-28 19:45] VITALS: BP 98/66; PULSE 85
[2017-03-28] MEDS: ROSUVASTATIN CALCIUM 10 MG TAB PO SCH (19:55)
[2017-03-28] MEDS: MIRTAZAPINE SOLTAB 15 MG PO SCH (19:55)
[2017-03-28 20:40] VITALS: PULSE 84; O2SAT 94
[2017-03-28 23:25] VITALS: BP 116/69; PULSE 103; TEMP 36.6; O2SAT 96
[2017-03-29 07:16] LABS: INR 2.2 (0.9-1.1)
[2017-03-29 07:40] LABS: CALCIUM 8.6 mg/dl (8.5-10.1); CREATININE 1.9 mg/dl (0.60-1.40); POTASSIUM 3.6 mmol/L (3.5-5.1)
[2017-03-29 07:53] VITALS: BP 141/80; PULSE 97; TEMP 36.6; O2SAT 95
[2017-03-29] MEDS: ISOSORBIDE MONONITRATE 60 MG TABCR PO SCH (08:06)
[2017-03-29] MEDS: METOPROLOL TARTRATE 50 MG TAB PO SCH (08:07)
[2017-03-29] MEDS: GABAPENTIN 100 MG CAP PO SCH ×2 (08:08→13:50)
[2017-03-29] MEDS: PANTOprazole SOD 40 MG TAB PO SCH (08:10)
[2017-03-29] MEDS: DOCUSATE SODIUM/SENNA 50/8.6MG TAB PO SCH (08:11)
[2017-03-29] MEDS: LISINOPRIL 20 MG TAB PO SCH (08:12)
[2017-03-29] MEDS: DOXYCYCLINE HYCLATE 100 MG CAP PO SCH (08:12)
[2017-03-29] MEDS: ALLOPURINOL 300 MG TAB PO SCH (08:13)
[2017-03-29] MEDS: FUROSEMIDE 80 MG TAB PO SCH ×2 (08:14→16:37)
[2017-03-29] MEDS: INSULIN ASPART 100 UNITS/ML 3 ML PEN SC SCH ×3 (08:36→16:46)
[2017-03-29] MEDS: INSULIN GLARGINE SOLOSTAR 100 UNITS/ML 3 ML PEN SC SCH (08:36)
[2017-03-29 11:14] VITALS: O2SAT 95
--- NOTE | 2017-03-29 15:09 | Progress Note ---
Medicine Progress Note Date & Time of Visit: Mar 29, 2017 at 15:03. Subjective Pt was seen and examined Sitting in chair with no distress Pt said that he feels fine Denies any chest pain, palpitation, dizziness and SOB Objective Last 8 Hrs Date Time Temp Pulse Resp B/P (MAP) Pulse Ox O2 Delivery O2 Flow Rate FiO2 03/29/17 11:14 95 Room Air 03/29/17 08:00 Room Air 03/29/17 07:53 36.6 97 16 141/80 (100) 95 BiPAP Physical Exam: General- No acute distress Head- atraumatic Eyes- PERRL, EOMI ENT- oropharynx clear Neck- supple, no JVD Lungs- No wheezing Heart- irregular rhythm Abdomen- normal bowel sounds, soft Extremities- No calf tenderness Neuro- alert, oriented x 3; PERRL, EOMI; no facial palsy Skin- warm & dry Laboratory Results: Last 24 Hours Test 03/28/17 16:25 03/28/17 19:49 03/29/17 06:43 03/29/17 07:39 Bedside Glucose 218 mg/dl 172 mg/dl 131 mg/dl Prothrombin Time 22.8 SECONDS Prothromb Time International Ratio 2.2 Sodium Level 138 mmol/L Potassium Level 3.6 mmol/L Chloride Level 105 mmol/L Carbon Dioxide Level 25 mmol/L Anion Gap 8.0 mmol/L Blood Urea Nitrogen 46 mg/dl Creatinine 1.90 mg/dl Est Creatinine Clear Calc Drug Dose 45.6 ml/min Estimated GFR () 37.5 Estimated GFR (Non- 32.3 BUN/Creatinine Ratio 24.1 Random Glucose 123 mg/dl Calcium Level 8.6 mg/dl Test 03/29/17 11:24 Bedside Glucose 161 mg/dl Assessment & Plan RECURRENT CELLULITIS CHRONIC VENOUS STASIS ULCERS Was initially starting on IV vancomycin and piperacillin /tazobactam. Then Zosyn was discontinued after wound culture growth staph aureus ID on board recommended Doxycycline to complete 21 days course of abx IV vancomycin discontinued yesterday Continue daily wound care Follow up with the wound care clinic CORONARY ARTERY DISEASE Denies any chest pain. Continue metoprolol, nitrates, statin. ATRIAL FIBRILLATION Rate control Continue metoprolol and warfarin. INT 2.2 HYPERTENSION BS stable Continue metoprolol and nitrates. SLEEP APNEA Continue BiPAP. CKD III Serum creatinine at time of admission was 2.15. Serum creatinine today = 1.9 Continue monitor BMP DM TYPE 2 Hgb A1C 7.9. Pharmacy consulted for glycemic management. Continue monitor BS DYSLIPIDEMIA Continue rosuvastatin. GOUT Continue allopurinol. VTE PROPHYLAXIS Continue warfarin, INR 2.2 Ambulate as able. DISPOSITION Plan to discharge home today Family Medicine follow-up with Dr. Ryder on Apr 03 @ 12:45 Follow up with the wound care clinic on Apr 04 @ 10:20 am Follow up with the Coumadin clinic Consultants: ID Current Inpatient Medications: Current Inpatient Medications Medications (Trade) Dose Ordered Sig/Aileen Route Start Time Stop Time Status Last Admin Dose Admin Acetaminophen (Tylenol Tab) 650 mg Q4H PRN PO 03/24/17 16:00 04/23/17 15:59 Ondansetron HCl (Zofran Inj) 4 mg Q6H PRN IV 03/24/17 16:00 04/23/17 15:59 Insulin Aspart (novoLOG ASPART) SLIDING SCALE If C... ACHS SC 03/24/17 17:22 04/23/17 17:21 03/29/17 13:47 18 UNITS Glucose (Glucose 40% Gel) 15-30 GRAMS 15 GRAMS... UD PRN PO 03/24/17 16:30 04/23/17 16:29 Glucose (Glucose Chew Tab) 4-8 Tablets 4 Tabl... UD PRN PO 03/24/17 16:30 04/23/17 16:29 Dextrose (Dextrose 50% 50ML Syringe) 25-50ML OF 50% DW IV FOR... UD PRN IV 03/24/17 16:30 04/23/17 16:29 Glucagon (Glucagon Inj) 1 mg UD PRN SQ 03/24/17 16:30 04/23/17 16:29 Miscellaneous Information (Consult Glycemic Management Pharmacy) 1 ea UD N/A 03/24/17 16:58 04/23/17 16:57 Allopurinol (Zyloprim Tab) 450 mg QAM PO 03/25/17 08:00 04/24/17 08:59 03/29/17 08:13 450 MG Gabapentin (Neurontin Cap) 100 mg TID PO 03/24/17 20:00 04/23/17 20:59 03/29/17 13:50 100 MG Acetaminophen/ Hydrocodone Bitart ([place] 5/325 Tab) 1 tab TID PRN PO 03/24/17 17:00 04/07/17 16:59 03/25/17 00:59 1 TAB Isosorbide Mononitrate (Imdur Ext Rel Tab) 60 mg QAM PO 03/25/17 08:00 04/24/17 08:59 03/29/17 08:06 60 MG Lisinopril (Zestril Tab) 20 mg DAILY PO 03/25/17 08:00 04/24/17 08:59 03/29/17 08:12 20 MG Metoprolol Tartrate (Lopressor Tab) 50 mg BID PO 03/24/17 20:00 04/23/17 20:59 03/29/17 08:07 50 MG Mirtazapine (Remeron Solutab) 15 mg HS PO 03/24/17 21:00 04/23/17 20:59 03/28/17 19:55 15 MG Prednisone (PredniSONE TAB) 5 mg DAILY PO 03/25/17 08:00 04/24/17 08:59 03/29/17 08:09 5 MG Rosuvastatin Calcium (Crestor Tab) 10 mg QPM PO 03/24/17 21:00 04/23/17 20:59 03/28/17 19:55 10 MG Senna/Docusate Sodium (Senokot S Tab) 1 tab DAILY PRN PO 03/24/17 17:00 04/23/17 16:59 Tramadol HCl (Ultram Tab) 50 mg Q6 PRN PO 03/24/17 17:00 04/23/17 16:59 Warfarin Sodium (Coumadin Tab) 5 mg TuTh@1600 PO 03/28/17 16:00 04/27/17 15:59 03/28/17 16:10 5 MG Pantoprazole Sodium (Protonix Tab) 40 mg BID PO 03/24/17 20:00 04/23/17 20:59 03/29/17 08:10 40 MG Warfarin Sodium (Coumadin Tab) 10 mg SuMoWeFrSa@1600 PO 03/25/17 16:00 04/23/17 17:59 03/27/17 17:49 10 MG Albuterol (Ventolin Hfa Inhaler) 2 puffs Q6H PRN INH 03/25/17 03:45 04/24/17 03:44 Furosemide (Lasix Tab) 80 mg BID17 PO 03/26/17 09:00 04/25/17 08:59 03/29/17 08:14 80 MG Senna/Docusate Sodium (Senokot S Tab) 1 tab BID PO 03/27/17 20:00 04/26/17 19:59 03/29/17 08:11 1 TAB Doxycycline Hyclate (Vibramycin Cap) 100 mg BID PO 03/28/17 14:30 04/07/17 14:29 03/29/17 08:12 100 MG Insulin Glargine (Lantus Solostar Pen) 24 units BID SC 03/29/17 20:00 04/28/17 19:59
[2017-03-29] MEDS ORDERED: DOXY-300 PO (15:16)
--- NOTE | 2017-03-29 15:23 | Discharge Instructions ---
Discharge Instructions Date of Service Mar 29, 2017. Admission Reason for Admission: Cellulitis Discharge Discharge Diagnosis / Problem: RECURRENT CELLULITIS Discharge Goals Goal(s): Decrease discomfort, Improve function, Improve disease control Activity Recommendations Activity Limitations: resume your previous activity (as tolerated) . Instructions / Follow-Up Instructions / Follow-Up Discharge home with home health services Family Medicine follow-up with Dr. Ryder on Apr 03 @ 12:45 Follow up with the wound care clinic on Apr 04 @ 10:20 am Follow up with the Coumadin clinic (INR 2.2 today) Compete the course of antibiotic with doxycycline Continue wound care Monitor renal function Continue Physical therapy Fall precaution Continue Coumadin as prescribing by the Coumadin clinic Current Hospital Diet Patient's current hospital diet: Diabetes Type 2 Diet, AHA Diet (Heart Healthy) , Low Sodium Diet (2gm Na) Discharge Diet Recommended Diet: Low Sodium Diet (2gm Na), Diabetes Type 2 Diet Pending Studies Studies pending at discharge: no Laboratory Results Hemoglobin A1c Test 03/25/17 08:03 Range/Units Estimated Average Glucose 180 mg/dl Hemoglobin A1c 7.9 H 4.5-5.6 % Medical Emergencies . Who to Call and When: Medical Emergencies: If at any time you feel your situation is an emergency, please call 911 immediately. . Non-Emergent Contact Non-Emergency issues call your: Primary Care Provider Call Non-Emergent contact if: you have a fever, you have any medication questions . . "Provider Documentation" section prepared by Josiah Phan. . VTE Core Measure Inpt VTE Proph given/why not?: Warfarin (Coumadin)
[2017-03-29 15:43] VITALS: BP 141/80; PULSE 97; TEMP 36.6; O2SAT 95
[2017-03-29] MEDS: WARFARIN SOD 10 MG TAB PO SCH (16:36)
[2017-03-29] MEDS ORDERED: INSULIN GLARGINE SOLOSTAR 100 UNITS/ML 3 ML PEN SC SCH (20:00)
--- NOTE | 2017-03-30 23:34 | Discharge Summary ---
Discharge Summary Date of Service Mar 30, 2017. Discharge Summary Admission Date: Mar 24, 2017 at 17:20 Discharge Date: Mar 29, 2017 Discharge Disposition: Home with services Principal Diagnosis: RECURRENT CELLULITIS Secondary Diagnoses/Problems: CHRONIC VENOUS STASIS ULCERS ATRIAL FIBRILLATION CORONARY ARTERY DISEASE SLEEP APNEA CKD STAGE 3 HTN DIABETES TYPE 2 DYSLIPIDEMIA GOUT Consultations: ID Medication Reconciliation New Medications: Doxycycline (Monohydrate) (Doxycycline) 100 Mg Cap 1 CAP PO BID for 15 Days, #30 Continued Medications: Acetaminophen Tab (Tylenol) 325 Mg Tab 650 MG PO Q6H PRN for Pain or Fever, TAB Albuterol Hfa (Ventolin Hfa) 200 Puffs/93672 Mcg Aers 1-2 PUFFS INH Q6H PRN for SOB/Wheezing, #1 INHALER Allopurinol (Zyloprim) 300 Mg Tab 450 MG PO QAM, TAB Cyclobenzaprine Hcl (Flexeril) 10 Mg Tab 10 MG PO TID PRN for Muscle Spasms, #21 TAB Ergocalciferol (Vitamin D2) Unknown Strength Tab 86347 UNITS PO MONTHLY Furosemide (Furosemide) 80 Mg Tab 80 MG PO BID Gabapentin (Gabapentin) 100 Mg Cap 100 MG PO TID, #30 Hydrocodone/Acetaminophen 5MG/325MG ([place] 5MG/325MG) Tab 1 TABLET PO TID PRN for Pain, #10 TAB Insulin Aspart 70/30 (Novolog Mix 70/30) Susp 55 UNITS SC QAM, BTL Insulin Aspart 70/30 (Novolog Mix 70/30) Susp 45 UNITS SC QPM Isosorbide Mononitrate (Isosorbide Mononitrate ER) 60 Mg Tab 60 MG PO QAM for 30 Days, #30 TAB 1 Refill Lisinopril (Zestril) 20 Mg Tab 20 MG PO DAILY, TAB Metoprolol Tartrate (Lopressor) (Lopressor) 50 Mg Tab 50 MG PO BID, TAB Mirtazapine Soltab (Remeron Soltab) 15 Mg Soltab 15 MG PO HS, TAB Nitroglycerin (Nitrostat) 0.4 Mg Tab 0.4 MG UT PRN PRN for Chest Pain Omeprazole (Prilosec) 20 Mg Capcr 40 MG PO BID, CAP Prednisone (Prednisone) 5 Mg Tab 5 MG PO DAILY, TAB Rosuvastatin Calcium (Crestor) 10 Mg Tab 10 MG PO QPM, TAB Senna/Docusate Sod (Senokot S) 1 Tab Tab 1 TAB PO DAILY PRN for Constipation, TAB Tramadol (Ultram) 50 Mg Tab 50 MG PO Q6 PRN for Pain, TAB Warfarin Sod (Coumadin) 10 Mg Tab 10 MG PO 5XWK monday, monday, monday, monday, and monday Warfarin Sod (Jantoven) 5 Mg Tab 5 MG PO 2XWK, TAB monday and Admission Information HPI (per Admitting provider): 81 year old male who presents to the ED for evaluation of left leg wound. Patient has history of chronic, recurrent venous stasis to the [facility]. He follows closely with wound care and ID. At the beginning of the year, patient was discharged from the wound care center because his wounds had healed completely however reopened shortly after. He was seen in the wound center on 03/07 and had a culture obtained that grew coag negative staph. He is currently not on antibiotics. Prior he had finished courses of Bactrim and Cefdinir for culture growing MRSA and Proteus. Patient has noticed increased redness and pain to the LLE. Home health nursing came to evaluate the patient today and found an open wound on the left proximal fuller. Patient denies fever and chills. No abdominal pain, nausea, vomiting, or diarrhea. He has chronic exertional shortness of breath which is unchanged from baseline. No lightheadedness, dizziness, diaphoresis, or syncopal events. He denies urinary symptoms. Labs in the ED show POC lactic acid 2.7, other labs unremarkable. Vitals are stable. He was given IVF, IV Vanco, and IV Zosyn. Physical Exam (per Admitting): General Appearance: WD/WN, no apparent distress, + obese Head: normocephalic, atraumatic Eyes: normal inspection, EOMI, sclerae normal ENT: hearing grossly normal, + pertinent finding (mucous membranes moist) Neck: supple, no JVD, trachea midline Respiratory/Chest: lungs clear, normal breath sounds, no respiratory distress Cardiovascular: normal peripheral pulses, + irregularly irregular (rate controlled), + pertinent finding (+2-3 edema BLLE, L > R ) Abdomen/GI: normal bowel sounds, non tender, soft, no organomegaly, + distended Extremities/Musculoskelatal: normal inspection, no calf tenderness, normal capillary refill Neurologic/Psych: no motor/sensory deficits, alert, normal mood/affect, oriented x 3 Skin: warm/dry, + pertinent finding (erythema BLLE, L > R; open wound to left proximal fuller with serous drainage ) Hospital Course RECURRENT CELLULITIS CHRONIC VENOUS STASIS ULCERS Was initially starting on IV vancomycin and piperacillin /tazobactam. Then Zosyn was discontinued after wound culture growth staph aureus ID on board recommended Doxycycline to complete 21 days course of abx IV vancomycin discontinued yesterday Continue daily wound care Follow up with the wound care clinic CORONARY ARTERY DISEASE Denies any chest pain. Continue metoprolol, nitrates, statin. ATRIAL FIBRILLATION Rate control Continue metoprolol and warfarin. INT 2.2 HYPERTENSION BS stable Continue metoprolol and nitrates. SLEEP APNEA Continue BiPAP. CKD III Serum creatinine at time of admission was 2.15. Serum creatinine today = 1.9 Continue monitor BMP DM TYPE 2 Hgb A1C 7.9. Pharmacy consulted for glycemic management. Continue monitor BS DYSLIPIDEMIA Continue rosuvastatin. GOUT Continue allopurinol. VTE PROPHYLAXIS Continue warfarin, INR 2.2 Ambulate as able. DISPOSITION Plan to discharge home today Family Medicine follow-up with Dr. Ryder on Apr 03 @ 12:45 Follow up with the wound care clinic on Apr 04 @ 10:20 am Follow up with the Coumadin clinic Total time spent on discharge = 35MIN This includes examination of the patient, discharge planning, medication reconciliation, and communication with other providers. Discharge Instructions Discharge Instructions Date of Service Mar 29, 2017. Admission Reason for Admission: Cellulitis Discharge Goals Goal(s): Decrease discomfort, Improve function, Improve disease control Activity Recommendations Activity Limitations: resume your previous activity (as tolerated) . Instructions / Follow-Up Instructions / Follow-Up Discharge home with home health services Family Medicine follow-up with Dr. Ryder on Apr 03 @ 12:45 Follow up with the wound care clinic on Apr 04 @ 10:20 am Follow up with the Coumadin clinic (INR 2.2 today) Compete the course of antibiotic with doxycycline Continue wound care Monitor renal function Continue Physical therapy Fall precaution Continue Coumadin as prescribing by the Coumadin clinic Current Hospital Diet Patient's current hospital diet: Diabetes Type 2 Diet, AHA Diet (Heart Healthy) , Low Sodium Diet (2gm Na) Discharge Diet Recommended Diet: Low Sodium Diet (2gm Na), Diabetes Type 2 Diet Pending Studies Studies pending at discharge: no Laboratory Results Hemoglobin A1c Test 03/25/17 08:03 Range/Units Estimated Average Glucose 180 mg/dl Hemoglobin A1c 7.9 H 4.5-5.6 % Medical Emergencies . Who to Call and When: Medical Emergencies: If at any time you feel your situation is an emergency, please call 911 immediately. . Non-Emergent Contact Non-Emergency issues call your: Primary Care Provider Call Non-Emergent contact if: you have a fever, you have any medication questions . . "Provider Documentation" section prepared by Josiah Phan. . VTE Core Measure Inpt VTE Proph given/why not?: Warfarin (Coumadin) Signed: Signed: The status of this report is Draft * If report status is Draft, the document has not been finalized by the responsible provider. Additional Copies To Jennifer Ryder M.D.
== END 2017-03-29 17:32 | disposition home health service (06) | DRG 300 ==
LOC: EDBD 12:20 → C.EDA 12:21 → ENRESERV 16:27 → C.MS4W 17:20
PROVIDERS: ADMIT Hospitalist; ATTEND Internal Medicine
DX: I83.028 Varicose veins of left lower extremity with ulcer other part of lower leg (principal); L03.116 Cellulitis of left lower limb; I48.91 Unspecified atrial fibrillation; Z66 Do not resuscitate; A49.02 Methicillin resistant Staphylococcus aureus infection, unspecified site; I12.9 Hypertensive chronic kidney disease with stage 1 through stage 4 chronic kidney disease, or unspecified chronic kidney disease; I25.10 Atherosclerotic heart disease of native coronary artery without angina pectoris; M10.9 Gout, unspecified; N18.3 Chronic kidney disease, stage 3 (moderate); E78.5 Hyperlipidemia, unspecified; K21.9 Gastro-esophageal reflux disease without esophagitis; I25.5 Ischemic cardiomyopathy; G47.33 Obstructive sleep apnea (adult) (pediatric); Z96.611 Presence of right artificial shoulder joint; Z87.442 Personal history of urinary calculi; Z79.01 Long term (current) use of anticoagulants; Z79.4 Long term (current) use of insulin

== ENCOUNTER 2017-04-05 12:23 | Inpatient (IN) | payer OTHER ==
[~2017-04-05] VITALS: Ht 374.6 cm; Wt 141.2 kg
[~2017-04-05 12:23] MED LIST changes: +ACET-1693 PO; +ALLO300T2 PO; -AMLO-110 PO; +CRS/10 PO; +CYCL10TA6 PO; +DOXY-300 PO; +ERGO1TAB12 PO; +ISOS60TA25 PO; -LCTX PO; +LISI-725 PO; +LSX80 PO; +METO50TA16 PO; +MIRT15TA2 PO; +PRED-301 PO; +SENN-65 PO; -TPRSR50 PO; +TRAM-10 PO; +VNTHFA/IN INH; +WARF5TAB7 PO
[2017-04-05] MEDS ORDERED: ALBUT/IPRATROP 3MG/0.5MG NEB 3 ML VIAL INH STA (13:08)
--- NOTE | 2017-04-05 13:43 | EMERGENCY ROOM VISIT NOTE ---
History Report prepared by Mick: Charo Saavedra Under the Supervision of: Dr. Callum Ortiz M.D. First contact with patient: 13:03 Chief Complaint: EDEMA TO EXTREMITY Stated Complaint: BREATHING DIFFICULTY History of Present Illness The patient is a 81 year old male who presents to the Emergency Room with complaints of constant bilateral lower extremity edema. The patient was discharged from the hospital 1 week ago on 03/29 with cellulitis. He was placed on doxycycline at that time. The patient is unsure if he is still taking that medication or if he finished it. He has been following up with the wound care clinic. He was there yesterday and states that they thought he was doing well. He has a home health nurse come every other day to wrap his legs. The patient states that today he developed some wheezing and a dry cough. He does not wear NC/O2 but he does wear CPAP at night. Patient denies fevers. He takes Lasix and Coumadin. Source of History: patient Onset: SURG[employer]MENT [employer]PERVIS[employer] Position: leg (bilateral) Quality: other (edema) Timing: constant Associated Symptoms: + cough, No fevers Note: Pt reports wheezing. Review of Systems See HPI for pertinent positives & negatives. A total of 10 systems reviewed and were otherwise negative. Past Medical & Surgical Medical Problems: (1) Atrial fibrillation (2) CAD (coronary artery disease) (3) Cellulitis (4) Chronic gout (5) CKD (chronic kidney disease), stage III (6) DM type 2 (diabetes mellitus, type 2) (7) Dyslipidemia (8) GERD (gastroesophageal reflux disease) (9) HTN (hypertension) (10) Ischemic cardiomyopathy (11) SHAUNA (obstructive sleep apnea) (12) Renal calculi Surgical Problems: (1) H/O arthroscopic knee surgery (2) History of right shoulder replacement (3) Status post total knee replacement, left Family History No pertinent family history Social History Smoking Status: Never Smoker Housing Status: lives alone Occupation Status: retired Current/Historical Medications Scheduled Allopurinol (Zyloprim), 450 MG PO QAM Doxycycline Monohydrate (Monodox), 100 MG PO BID Ergocalciferol (Vitamin D2), 50,000 UNITS PO MONTHLY Furosemide (Furosemide), 80 MG PO BID Gabapentin (Gabapentin), 100 MG PO TID Insulin Aspart 70/30 (Novolog Mix 70/30), 55 UNITS SC QAM Insulin Aspart 70/30 (Novolog Mix 70/30), 45 UNITS SC QPM Isosorbide Mononitrate Ext Rel (Imdur Ext Rel), 60 MG PO QAM Lisinopril (Zestril), 20 MG PO DAILY Metoprolol Tartrate (Lopressor) (Lopressor), 50 MG PO BID Mirtazapine Soltab (Remeron Soltab), 15 MG PO HS Omeprazole (Prilosec), 40 MG PO BID Prednisone (Prednisone), 5 MG PO DAILY Rosuvastatin Calcium (Crestor), 10 MG PO QPM Warfarin Sod (Coumadin), 10 MG PO 5XWK Warfarin Sod (Jantoven), 5 MG PO 2XWK Scheduled PRN Acetaminophen Tab (Tylenol), 650 MG PO Q6H PRN for Pain or Fever Albuterol Hfa (Ventolin Hfa), 1-2 PUFFS INH Q6H PRN for SOB/Wheezing Cyclobenzaprine Hcl (Flexeril), 10 MG PO TID PRN for Muscle Spasms Hydrocodone/Acetaminophen 5MG/325MG (Crystal 5MG/325MG), 1 TABLET PO TID PRN for Pain Nitroglycerin (Nitrostat), 0.4 MG UT PRN PRN for Chest Pain Senna/Docusate Sod (Senokot S), 1 TAB PO DAILY PRN for Constipation Tramadol (Ultram), 50 MG PO Q6 PRN for Pain Allergies Coded Allergies: NO KNOWN DRUG ALLERGIES (Verified Allergy, Unknown, ., 04/05/17) Physical Exam Vital Signs Date Time Temp Pulse Resp B/P (MAP) Pulse Ox O2 Delivery O2 Flow Rate FiO2 04/05/17 13:51 83 24 112/63 93 Room Air 04/05/17 12:35 36.3 116 22 119/71 94 Room Air 04/05/17 12:33 87 Physical Exam GENERAL: Patient is in no acute distress. HEENT: No acute trauma, normocephalic atraumatic, mucous membranes moist, no nasal congestion, no scleral icterus. NECK: No stridor, no adenopathy, no meningismus, trachea is midline. LUNGS: No wheezing heard, a few crackles at the bases more so on the left. HEART: Irregular rhythm, normal rate, no murmurs. ABDOMEN: Soft, nontender, bowel sounds positive, no hernias, no peritonitis. EXTREMITIES: Significant bilateral pedal edema with bilateral leg wraps, no evidence for acute trauma. NEUROLOGIC: Oriented x 3, no acute motor or sensory deficits, no focal weakness. SKIN: No rash, no jaundice, no diaphoresis. Medical Decision & Procedures ER Provider Diagnostic Interpretation: Radiology results as stated below per my review and radiologist interpretation: CHEST ONE VIEW PORTABLE CLINICAL HISTORY: EVALUATE RESPIRATORY DISTRESS.DYSPNEA COMPARISON STUDY: 12/14/2016 FINDINGS: Cardiomegaly. Findings of congestive heart failure. Prior median sternotomy. Prominent pulmonary vasculature. IMPRESSION: Congestive heart failure The above report was generated using voice recognition software. It may contain grammatical, syntax or spelling errors. Electronically signed by: Andrew Cherry M.D. 04/05/2017 1:59 PM Dictated Date/Time: 04/05/2017 1:59 PM Laboratory Results 04/05/17 13:25 Red Blood Count 3.90, Mean Corpuscular Volume 96.4, Mean Corpuscular Hemoglobin 30.5, Mean Corpuscular Hemoglobin Concent 31.6, Mean Platelet Volume 9.2, Neutrophils (%) (Auto) 74.3, Lymphocytes (%) (Auto) 12.6, Monocytes (%) (Auto) 8.3, Eosinophils (%) (Auto) 4.0, Basophils (%) (Auto) 0.5, Neutrophils # (Auto) 6.79, Lymphocytes # (Auto) 1.15, Monocytes # (Auto) 0.76, Eosinophils # (Auto) 0.37, Basophils # (Auto) 0.05 04/05/17 13:25 Test 04/05/17 13:23 04/05/17 13:25 Influenza Type A Antigen Neg for Influ A (NEG) Influenza Type B Antigen Neg for Influ B (NEG) White Blood Count 9.15 K/uL (4.8-10.8) Red Blood Count 3.90 M/uL (4.7-6.1) Hemoglobin 11.9 g/dL (14.0-18.0) Hematocrit 37.6 % (42-52) Mean Corpuscular Volume 96.4 fL (80-100) Mean Corpuscular Hemoglobin 30.5 pg (25-34) Mean Corpuscular Hemoglobin Concent 31.6 g/dl (32-36) Platelet Count 144 K/uL (130-400) Mean Platelet Volume 9.2 fL (7.4-10.4) Neutrophils (%) (Auto) 74.3 % Lymphocytes (%) (Auto) 12.6 % Monocytes (%) (Auto) 8.3 % Eosinophils (%) (Auto) 4.0 % Basophils (%) (Auto) 0.5 % Neutrophils # (Auto) 6.79 K/uL (1.4-6.5) Lymphocytes # (Auto) 1.15 K/uL (1.2-3.4) Monocytes # (Auto) 0.76 K/uL (0.11-0.59) Eosinophils # (Auto) 0.37 K/uL (0-0.5) Basophils # (Auto) 0.05 K/uL (0-0.2) RDW Standard Deviation 67.1 fL (36.4-46.3) RDW Coefficient of Variation 19.1 % (11.5-14.5) Immature Granulocyte % (Auto) 0.3 % Immature Granulocyte # (Auto) 0.03 K/uL (0.00-0.02) Prothrombin Time 34.3 SECONDS (9.0-12.0) Prothromb Time International Ratio 3.3 (0.9-1.1) Activated Partial Thromboplast Time 37.1 SECONDS (21.0-31.0) Partial Thromboplastin Ratio 1.4 Anion Gap 9.0 mmol/L (3-11) Est Creatinine Clear Calc Drug Dose 37.9 ml/min Estimated GFR () 27.6 Estimated GFR (Non- 23.8 BUN/Creatinine Ratio 24.3 (10-20) Calcium Level 8.6 mg/dl (8.5-10.1) Total Bilirubin 0.5 mg/dl (0.2-1) Aspartate Amino Transf (AST/SGOT) 35 U/L (15-37) Alanine Aminotransferase (ALT/SGPT) 33 U/L (12-78) Alkaline Phosphatase 110 U/L (45-117) Troponin I 0.680 ng/ml (0-0.045) Total Protein 6.6 gm/dl (6.4-8.2) Albumin 3.0 gm/dl (3.4-5.0) Globulin 3.6 gm/dl (2.5-4.0) Albumin/Globulin Ratio 0.8 (0.9-2) Laboratory results reviewed by me. Medications Administered Medications (Trade) Dose Ordered Sig/Aileen Route Start Time Stop Time Status Last Admin Dose Admin Albuterol/ Ipratropium (Duoneb) 3 ml NOW STAT INH 04/05/17 13:08 04/05/17 13:11 DC 04/05/17 13:54 3 ML Furosemide 80 mg/ Syringe 8 ml @ 4 mls/min NOW STAT IV 04/05/17 14:11 04/05/17 14:12 DC 04/05/17 14:42 4 MLS/MIN ECG Per My Interpretation Indication: SOB/dyspnea Rate (beats per minute): 90 Rhythm: atrial fibrillation Findings: nonspecific-ST abn, PVC, other (No ST elevation) ED Course 1303: The patient was evaluated in room B2. A complete history and physical exam was performed. 1308: DuoNeb 3 ml INH 1411: Lasix 8 ml @ 4 mls/min 1500: I spoke with Paola Castro PA-C. We discussed the patient's case. [facility] 1503: I reassessed the patient at this time. He is feeling better and resting comfortably. I discussed the results and treatment plan with the patient. I answered all pertaining questions that he had. He expressed understanding and verbalized agreement. Medical Decision Differential diagnoses includes influenza or flu-like illness, CHF, bronchitis, pneumonia, electrolyte imbalance, cardiac ischemia. There is no leukocytosis or concerning anemia. INR is elevated consistent with his Coumadin use. There is evidence for acute renal failure by renal panel testing. No hepatitis. Chest x-ray does show CHF. EKG shows A. fib, no acute ischemia. Cardiac enzyme testing times one is slightly elevated-he has had some troponin elevations in the past. Influenza testing returned negative. The patient received IV Lasix and a DuoNeb, he is resting comfortably. He is not hypoxic. Given the acute renal failure, given the troponin elevation, given his dyspnea and increasing edema, a hospital stay for further care was felt warranted. It is possible the patient may require placement in a facility to manage all his issues. He is at home by himself with some nursing care during the day, this may not be adequate to care for all his issues. I did speak to the patient and casework supervisor. The on-call hospitalist was consulted. Medication Reconcilliation Current Medication List: was personally reviewed by me Consults Time Called: 1451 Consulting Physician: Paola Castro PA-C Returned Call: 1500 I spoke with Paola Castro PA-C. We discussed the patient's case. The patient will be evaluated by the [facility] for further management. Impression Primary Impression: Shortness of breath Additional Impressions: CHF (congestive heart failure) Acute renal failure Elevated troponin Scribe Attestation The scribe's documentation has been prepared under my direction and personally reviewed by me in its entirety. I confirm that the note above accurately reflects all work, treatment, procedures, and medical decision making performed by me. Departure Information Dispostion Being Evaluated By Hospitalist Referrals Jennifer Ryder M.D. (PCP) Patient Instructions My [facility] Problem Qualifiers
[2017-04-05 13:57] LABS: HEMATOCRIT 37.6 % (42-52); HEMOGLOBIN 11.9 g/dL (14.0-18.0); MEAN CELL VOLUME 96.4 fL (80-100); MEAN CORPUSCULAR HEMOGLOBIN 30.5 pg (25-34); MEAN CORPUSCULAR HGB CONC 31.6 g/dl (32-36); MEAN PLATELET VOLUME 9.2 fL (7.4-10.4); PLATELET COUNT 144 K/uL (130-400); RED CELL DISTRIBUTION WIDTH CV 19.1 % (11.5-14.5); RED CELL DISTRIBUTION WIDTH SD 67.1 fL (36.4-46.3); WHITE BLOOD COUNT 9.15 K/uL (4.8-10.8)
--- NOTE | 2017-04-05 14:01 | DIAGNOSTIC IMAGING REPORT ---
CHEST ONE VIEW PORTABLE CLINICAL HISTORY: EVALUATE RESPIRATORY DISTRESS.DYSPNEA COMPARISON STUDY: 12/14/2016 FINDINGS: Cardiomegaly. Findings of congestive heart failure. Prior median sternotomy. Prominent pulmonary vasculature. IMPRESSION: Congestive heart failure The above report was generated using voice recognition software. It may contain grammatical, syntax or spelling errors. Electronically signed by: Andrew Cherry M.D. 04/05/2017 1:59 PM Dictated Date/Time: 04/05/2017 1:59 PM
[2017-04-05 14:07] LABS: INR 3.3 (0.9-1.1); PTT PATIENT 37.1 SECONDS (21.0-31.0)
[2017-04-05] MEDS ORDERED: FUROSEMIDE INJ 80 MG in SYRINGE 0 ML IV STA (14:11)
[2017-04-05 14:16] LABS: CALCIUM 8.6 mg/dl (8.5-10.1); CREATININE 2.45 mg/dl (0.60-1.40); POTASSIUM 4.3 mmol/L (3.5-5.1)
[2017-04-05] MEDS ORDERED: DOXY100C76 PO (14:17)
[2017-04-05] MEDS ORDERED: HYDR-5688 PO (14:17)
[2017-04-05 14:20] LABS: BASO % 0.5 %; BASO ABS # 0.05 K/uL (0-0.2); EOS ABS # 0.37 K/uL (0-0.5); IG# 0.03 K/uL (0.00-0.02); LYMPH % 12.6 %; LYMPH ABS # 1.15 K/uL (1.2-3.4); MONO % 8.3 %; MONO ABS # 0.76 K/uL (0.11-0.59); NEUT % 74.3 %; NEUT ABS # 6.79 K/uL (1.4-6.5)
[2017-04-05 14:28] LABS: TOTAL PROTEIN 6.6 gm/dl (6.4-8.2)
[2017-04-05 14:35] LABS: INFLUENZA B ANTIGEN Neg for Influ B (NEG)
[2017-04-05] MEDS ORDERED: FUROSEMIDE 40 MG/4 ML VIAL ONE (14:39)
[2017-04-05] MEDS ORDERED: NITROGLYCERIN 0.4 MG SL PER TAB CHARGE SL PRN (16:15)
[2017-04-05] MEDS ORDERED: MAGNESIUM HYDROXIDE SUSP 30 ML UDC PO PRN (16:15)
[2017-04-05] MEDS ORDERED: ALBUTEROL HFA 8 GM INHALER INH PRN (16:30)
[2017-04-05] MEDS ORDERED: DEXTROSE 50% 50 ML SYR IV PRN (16:30)
[2017-04-05] MEDS ORDERED: CYCLOBENZAPRINE HCL 10 MG TAB PO PRN (16:30)
[2017-04-05] MEDS ORDERED: GLUCAGON FOR INJ 1 MG VIAL SQ PRN (16:30)
[2017-04-05] MEDS ORDERED: HYDROCODONE/ACETAMIN 5/325MG TAB PO PRN (16:30)
[2017-04-05] MEDS ORDERED: GLUCOSE 40% GEL 15 GM TUBE PO PRN (16:30)
[2017-04-05] MEDS ORDERED: GLUCOSE 10 TABS/TUBE PO PRN (16:30)
[2017-04-05] MEDS ORDERED: CMD/25 PO (16:36)
[2017-04-05] MEDS ORDERED: NRN300 PO (16:36)
[2017-04-05 16:37] LABS: INFLUENZA A PCR Neg for Influ A (NEG); INFLUENZA B PCR Neg for Influ B (NEG)
[2017-04-05] MEDS ORDERED: PHARMACY GLYCEMIC MGMT CONSULT PRN (17:05)
--- NOTE | 2017-04-05 17:10 | History and Physical ---
History & Physical Date & Time of Service: Apr 05, 2017 at 16:41 Chief Complaint: Breathing Difficulty Primary Care Physician: Jennifer Ryder M.D. History of Present Illness Source: patient, clinic records, hospital records Pt is 81 y/o M with PMH cardiomyopathy, a-fib on coumadin, insulin dependent DM II, CKD III, CAD s/p CABG, HLD, HTN, chronic anemia, sleep apnea, gout, chronic LE wounds presented to ER with c/o increased SOB and increased LE edema. Hx of venous stasis and recurrent wounds to BLE. Follows with ID and wound clinic. Had admission for cellulitis LE and d/c on 03/29/17. Growth of MRSA, d/c on doxycycline. Pt states past couple of days noticed increased SOB and increased edema to BLE. Denies increased redness or drainage. Having legs re-dressed every other day. Started with non-productive cough yesterday and reports he feels like he needs to cough something up however is unable to do so. Denies any CP or palpitations. Is on lasix 80mg BID. He states has been taking. Pt admits to eating dov and today was going to eat fried chicken, however he doesn't believe he has been having salt in his diet. Reports influenza vaccine this season. Denies fever/chills, diaphoresis, N/V/D/C, RUSSELL, dizziness, syncope, vision changes, neck pain, CP, palpitations, hemoptysis, sore throat, choking, otalgia, rhinorrhea, abdominal pain, urinary symptoms. Past Medical/Surgical History Medical Problems: (1) Atrial fibrillation Status: Chronic (2) CAD (coronary artery disease) Permanent Comment: 1994 - CABG x 5 Status: Chronic (3) Chronic gout Status: Chronic (4) CKD (chronic kidney disease), stage III Status: Chronic (5) DM type 2 (diabetes mellitus, type 2) Status: Chronic (6) Dyslipidemia Status: Chronic (7) GERD (gastroesophageal reflux disease) Status: Chronic (8) HTN (hypertension) Status: Chronic (9) Ischemic cardiomyopathy Status: Chronic (10) SHAUNA (obstructive sleep apnea) Status: Chronic (11) Renal calculi Status: Chronic Surgical Problems: (1) H/O arthroscopic knee surgery Status: Chronic (2) History of right shoulder replacement Status: Chronic (3) Status post total knee replacement, left Status: Chronic Family History Diabetes mellitus FH: cancer Social History Smoking Status: Former Smoker (quit 1960) Smokeless Tobacco Use: No Alcohol Use: rare Drug Use: none Occupational Status: retired Immunizations History of Influenza Vaccine: Yes Influenza Vaccine Date: Oct 24, 2016 History of Tetanus Vaccine?: Yes Tetanus Immunization Date: Sep 10, 2008 History of Pneumococcal: Yes Pneumococcal Date: Feb 27, 2014 Multi-Drug Resistant Organisms History of MDRO: Yes Type of MDRO: MRSA Allergies Coded Allergies: NO KNOWN DRUG ALLERGIES (Verified Allergy, Unknown, ., 04/05/17) Home Medications Scheduled Allopurinol (Zyloprim), 450 MG PO QAM Doxycycline Monohydrate (Monodox), 100 MG PO BID Ergocalciferol (Vitamin D2), 50,000 UNITS PO MONTHLY Furosemide (Furosemide), 80 MG PO BID Gabapentin (Gabapentin), 1 CAP PO TID Insulin Aspart 70/30 (Novolog Mix 70/30), 55 UNITS SC QAM Insulin Aspart 70/30 (Novolog Mix 70/30), 45 UNITS SC QPM Isosorbide Mononitrate Ext Rel (Imdur Ext Rel), 60 MG PO QAM Lisinopril (Zestril), 20 MG PO DAILY Metoprolol Tartrate (Lopressor) (Lopressor), 50 MG PO BID Mirtazapine Soltab (Remeron Soltab), 15 MG PO HS Omeprazole (Prilosec), 40 MG PO BID Prednisone (Prednisone), 5 MG PO DAILY Rosuvastatin Calcium (Crestor), 10 MG PO QPM Warfarin Sod (Coumadin), 10 MG PO 5XWK Warfarin Sod (Coumadin), 2 TAB PO UD Scheduled PRN Acetaminophen Tab (Tylenol), 650 MG PO Q6H PRN for Pain or Fever Albuterol Hfa (Ventolin Hfa), 1-2 PUFFS INH Q6H PRN for SOB/Wheezing Cyclobenzaprine Hcl (Flexeril), 10 MG PO TID PRN for Muscle Spasms Hydrocodone/Acetaminophen 5MG/325MG ([place] 5MG/325MG), 1 TABLET PO TID PRN for Pain Nitroglycerin (Nitrostat), 0.4 MG UT PRN PRN for Chest Pain Senna/Docusate Sod (Senokot S), 1 TAB PO DAILY PRN for Constipation Review of Systems See HPI for pertinent positives & negatives. All other systems reviewed and were otherwise negative Physical Exam Vital Signs Date Time Temp Pulse Resp B/P (MAP) Pulse Ox O2 Delivery O2 Flow Rate FiO2 04/05/17 16:34 93 20 120/96 93 04/05/17 15:22 77 16 120/81 93 04/05/17 13:51 83 24 112/63 93 Room Air 04/05/17 12:35 36.3 116 22 119/71 94 Room Air 04/05/17 12:33 87 General Appearance: no apparent distress, + obese Head: normocephalic, atraumatic Eyes: normal inspection, PERRL, EOMI, sclerae normal ENT: pharynx normal, + pertinent finding (mucous membranes moist. mildly hard of hearing) Neck: supple, no JVD, trachea midline Respiratory/Chest: no respiratory distress, no accessory muscle use, + decreased breath sounds (bases bilaterally) Cardiovascular: + irregularly irregular (rate in 80's) Abdomen/GI: normal bowel sounds, non tender, soft Extremities/Musculoskelatal: + pertinent finding (+pretibial edema 2-3+ bilaterally, bilateral lower extremities with erythema, wraps in place, capillary refill intact, sensation to light touch toes intact, pedal pushes and pulls intact) Neurologic/Psych: alert, normal mood/affect, oriented x 3 Skin: normal color, warm/dry Diagnostics Laboratory Results Results Past 24 Hours Test 04/05/17 13:23 04/05/17 13:25 04/05/17 16:24 Range/Units Influenza Type A (RT-PCR) Neg for Influ A NEG Influenza Type A Antigen Neg for Influ A NEG Influenza Type B Antigen Neg for Influ B NEG Influenza Type B (RT-PCR) Neg for Influ B NEG White Blood Count 9.15 4.8-10.8 K/uL Red Blood Count 3.90 4.7-6.1 M/uL Hemoglobin 11.9 14.0-18.0 g/dL Hematocrit 37.6 42-52 % Mean Corpuscular Volume 96.4 80-100 fL Mean Corpuscular Hemoglobin 30.5 25-34 pg Mean Corpuscular Hemoglobin Concent 31.6 32-36 g/dl Platelet Count 144 130-400 K/uL Mean Platelet Volume 9.2 7.4-10.4 fL Neutrophils (%) (Auto) 74.3 % Lymphocytes (%) (Auto) 12.6 % Monocytes (%) (Auto) 8.3 % Eosinophils (%) (Auto) 4.0 % Basophils (%) (Auto) 0.5 % Neutrophils # (Auto) 6.79 1.4-6.5 K/uL Lymphocytes # (Auto) 1.15 1.2-3.4 K/uL Monocytes # (Auto) 0.76 0.11-0.59 K/uL Eosinophils # (Auto) 0.37 0-0.5 K/uL Basophils # (Auto) 0.05 0-0.2 K/uL RDW Standard Deviation 67.1 36.4-46.3 fL RDW Coefficient of Variation 19.1 11.5-14.5 % Immature Granulocyte % (Auto) 0.3 % Immature Granulocyte # (Auto) 0.03 0.00-0.02 K/uL Prothrombin Time 34.3 9.0-12.0 SECONDS Prothromb Time International Ratio 3.3 0.9-1.1 Activated Partial Thromboplast Time 37.1 21.0-31.0 SECONDS Partial Thromboplastin Ratio 1.4 Sodium Level 140 136-145 mmol/L Potassium Level 4.3 3.5-5.1 mmol/L Chloride Level 105 98-107 mmol/L Carbon Dioxide Level 26 21-32 mmol/L Anion Gap 9.0 3-11 mmol/L Blood Urea Nitrogen 60 7-18 mg/dl Creatinine 2.45 0.60-1.40 mg/dl Est Creatinine Clear Calc Drug Dose 37.9 ml/min Estimated GFR () 27.6 Estimated GFR (Non- 23.8 BUN/Creatinine Ratio 24.3 10-20 Random Glucose 70 70-99 mg/dl Calcium Level 8.6 8.5-10.1 mg/dl Total Bilirubin 0.5 0.2-1 mg/dl Aspartate Amino Transf (AST/SGOT) 35 15-37 U/L Alanine Aminotransferase (ALT/SGPT) 33 12-78 U/L Alkaline Phosphatase 110 45-117 U/L Troponin I 0.680 0-0.045 ng/ml Total Protein 6.6 6.4-8.2 gm/dl Albumin 3.0 3.4-5.0 gm/dl Globulin 3.6 2.5-4.0 gm/dl Albumin/Globulin Ratio 0.8 0.9-2 Diagnostic Radiology CXR: IMPRESSION: Congestive heart failure Impression Assessment and Plan ACUTE ON CHRONIC SYSTOLIC HEART FAILURE Increased SOB and LE edema past couple of days. Cough started yesterday. No fever or chills. Pt with dietary discretion recently. BNP: 7993. O2 sat: 93% RA. CXR: CHF. Given lasix 80mg IV in ER. Negative influenza. -hold on further lasix tonight and re-evaluate in am -I&O's, fluid restriction 1500ml, daily weight, low sodium diet -Reyes -echo in 12/30 had EF of 30-35%. Will hold on further echo at this time, appreciate cardiology in put -cardiology consult -cbc, prp, magnesium in am ELEVATED TROPONIN Troponin: 0.68. Was 0.7 on admission 12/30. No CP -trend troponin -repeat EKG in am or prn CP ISCHEMIC CARDIOMYOPATHY echo 12/30: EF: 30-35%. No CP -continue beta leah, isosorbide, statin -holding lisinopril at this time with YAMEL YAMEL on CKD III Cr: 2.4. baseline high 1's -hold lisinopril at this time -monitor renal function -avoid nephrotoxic agents when possible A-FIB on CHRONIC COUMADIN rate controlled at this time. INR: 3.3. No active bleeding. -hold coumadin and monitor INR -continue beta leah INSULIN DEPENDENT DM II Pt reports BS varying. Reports low in 30's today increased to 90 with orange juice. HA1c on 03/25/17 was 7.9 -hold home 70/30 -basal and Novolog sliding scale -glycemic consult CELLULITIS D/C from hospital on 03/29/17 for BLE cellulitis. +MRSA. Follows with ID and wound clinic. No fever/chills, no increased erythema -continue doxycycline -wound consult -contact precautions GERD -continue PPI GOUT -continue allopurinol and prednisone SHAUNA -CPAP HS DVT Prophylaxis -On coumadin Disposition admit tele Full Code as per discussion with pt Follows with Dr Ryder for routine care Pt was seen with Dr Nolan. See addendum ATTENDING ADDENDUM care coordinated with NALLELY Argueta please refer to her notes for full details, I agree with her notes patient seen and examined, records reviewed by myself as well on exam, patient seen resting in bed, comfortable, not in distress states he feels improved compared to admission denies active dyspnea, chest pain or any other symptoms no other symptoms VS noted and reviewed oriented x 3 , not in distress, speaks in sentences with no effort nor accessory muscle use normal rate, regular rhythm, no murmurs clear breath sounds bilaterally non distended, soft, nontender lower legs wrapped no neuro deficits crea 2.4 trop 0.6 inr 3.3 ASSESSMENT/PLAN> ACUTE ON CHRONIC SYSTOLIC CHF - Lasix 80mg IV given - starting to diurese - will order Lasix 40mg IV q12h Cardiology to be consulted ACUTE RENAL FAILURE - will order Nephro SUPRATHERAPEUTIC INR - hold coumadin other diagnoses and plan of care as per NALLELY Argueta notes Henri Nolan MD Resuscitation Status FULL RESUSCITATION VTE Prophylaxis VTE Risk Assessment Done? Y/N: Yes Risk Level: Moderate Given or contraindicated: Warfarin (Coumadin) Additional Copies To Henri Nolan MD
[2017-04-05 18:00] VITALS: BP 147/77; PULSE 79; TEMP 36.4; O2SAT 93
[2017-04-05 18:09] VITALS: BMI 41.3
[2017-04-05 19:14] VITALS: BP 118/69; PULSE 83; TEMP 36.4; O2SAT 92
[2017-04-05] MEDS: INSULIN GLARGINE SOLOSTAR 100 UNITS/ML 3 ML PEN SC SCH (21:00)
[2017-04-05] MEDS: INSULIN ASPART 100 UNITS/ML 3 ML PEN SC SCH (21:00)
[2017-04-05] MEDS: DOXYCYCLINE HYCLATE 100 MG CAP PO SCH (21:20)
[2017-04-05] MEDS: MIRTAZAPINE SOLTAB 15 MG PO SCH (21:20)
[2017-04-05] MEDS: PANTOprazole SOD 40 MG TAB PO SCH (21:20)
[2017-04-05] MEDS: GABAPENTIN 300 MG CAP PO SCH (21:20)
[2017-04-05] MEDS: METOPROLOL TARTRATE 50 MG TAB PO SCH (21:21)
[2017-04-05] MEDS: ROSUVASTATIN CALCIUM 10 MG TAB PO SCH (21:21)
[2017-04-05 22:14] VITALS: PULSE 83; O2SAT 98
[2017-04-05 23:57] VITALS: BP 135/74; PULSE 91; TEMP 36.6; O2SAT 94
[2017-04-06] VITALS (8 sets, daily range): BP systolic 101–141; BP diastolic 56–104; PULSE 62–85; TEMP 36.4–37; O2SAT 92–97
[2017-04-06] MEDS ORDERED: INSULIN ASPART 100 UNITS/ML 3 ML PEN SC SCH (02:00)
[2017-04-06 06:39] LABS: HEMATOCRIT 36.8 % (42-52); HEMOGLOBIN 12.1 g/dL (14.0-18.0); MEAN CELL VOLUME 94.4 fL (80-100); MEAN CORPUSCULAR HGB CONC 32.9 g/dl (32-36); MEAN PLATELET VOLUME 9.9 fL (7.4-10.4); PLATELET COUNT 142 K/uL (130-400); RED CELL DISTRIBUTION WIDTH CV 19.2 % (11.5-14.5); RED CELL DISTRIBUTION WIDTH SD 65.5 fL (36.4-46.3); WHITE BLOOD COUNT 7.66 K/uL (4.8-10.8)
[2017-04-06 07:04] LABS: CALCIUM 8.6 mg/dl (8.5-10.1); CREATININE 2.34 mg/dl (0.60-1.40); POTASSIUM 3.8 mmol/L (3.5-5.1)
[2017-04-06] MEDS: GABAPENTIN 300 MG CAP PO SCH ×3 (08:02→20:38)
[2017-04-06] MEDS: METOPROLOL TARTRATE 50 MG TAB PO SCH ×2 (08:02→20:38)
[2017-04-06] MEDS: ISOSORBIDE MONONITRATE 60 MG TABCR PO SCH (08:02)
[2017-04-06] MEDS: ALLOPURINOL 300 MG TAB PO SCH (08:03)
[2017-04-06] MEDS: DOXYCYCLINE HYCLATE 100 MG CAP PO SCH ×2 (08:03→20:38)
[2017-04-06] MEDS: PANTOprazole SOD 40 MG TAB PO SCH ×2 (08:03→20:38)
[2017-04-06] MEDS: INSULIN ASPART 100 UNITS/ML 3 ML PEN SC SCH ×4 (08:12→20:40)
[2017-04-06] MEDS: INSULIN GLARGINE SOLOSTAR 100 UNITS/ML 3 ML PEN SC SCH ×2 (08:13→20:41)
[2017-04-06] MEDS: FUROSEMIDE INJ 60 MG in SYRINGE 0 ML IV SCH ×2 (09:04→17:04)
--- NOTE | 2017-04-06 10:02 | Nephrology Consultation ---
Nephrology Consultation Date of Consultation: Apr 06, 2017. Attending Physician: Dr Nolan Requesting Physician: Dr Nolan Reason for Consultation: YAMEL History of Present Illness 81 year old male w/ DM, ischemic CLINICAL NURSING COORDINATOR, chronic LE cellulitis admitted yesterday evening for acute on chronic systolic HF exacerbation and noted to have YAMEL on CKD. He had been evaluated by home health yesterday and had wheezing, worsening dyspnea. he also reported he could hardly walk back from bathroom. He was recently admitted here for 5 days, d/c on 03/29, for recurrent cellulitis and sent home on doxycycline 100 mg bid for 15 days. Also d/c on his routine lasix 80 mg bid, lisinopril 20 mg daily. His presenting creatinine last evening was 2.5; it is 2.3 this am. His outpt baseline creatinine is generally in the mid-high ones, though in late 2016, early 2017 more in the high 2's-low 3 's < may have coincided w/ outpt bactrim therapy. Most recent outpt creatinine is 1.9 on 03/16/17, the same value as recent hospital d/c last week. On arrival yesterday, he was given 80 mg IV furosemide once; no standing diuretic orders. Also started on 1.5L fluid restriction and low Na diet. His doxycycline was continued. Past Medical/Surgical History -recurrent venous stasis ulcers and cellulitis BLE, follows w/ wound clinic -a fib -CAD -ischemic CLINICAL NURSING COORDINATOR, EF 30-35% 12/2016 -CKD -HTN -DM -gout -chronic daily prednisone 5 mg -nephrolithiasis -juvencio on bipap -L knee and R shoulder replacements -admission here 03/24-03/29/17 for recurrent LLE cellulitis -admission here 12/2016 for AF RVR, volume overload -chronic ambulatory dysfunction; walker dependent Family History Diabetes mellitus FH: cancer Social History Smoking Status: Never Smoker Drug Use: none Housing Status: lives alone Occupation Status: retired Allergies Coded Allergies: NO KNOWN DRUG ALLERGIES (Verified Allergy, Unknown, ., 04/05/17) Medications Current Inpatient Medications Medications (Trade) Dose Ordered Sig/Aileen Route Start Time Stop Time Status Last Admin Dose Admin Acetaminophen (Tylenol Tab) 650 mg Q4H PRN PO 04/05/17 16:15 05/05/17 16:14 Magnesium Hydroxide (Milk Of Magnesia Susp) 30 ml Q12H PRN PO 04/05/17 16:15 05/05/17 16:14 Nitroglycerin (Nitrostat Tab) 0.4 mg UD PRN SL 04/05/17 16:15 05/05/17 16:14 Insulin Glargine (Lantus Solostar Pen) SEE PROTOCOL TXT Q12 SC 04/05/17 21:00 05/05/17 20:59 Insulin Aspart (novoLOG ASPART) SLIDING SCALE If C... ACHS SC 04/05/17 16:00 05/05/17 15:59 Glucose (Glucose 40% Gel) 15-30 GRAMS 15 GRAMS... UD PRN PO 04/05/17 16:30 05/05/17 16:29 Glucose (Glucose Chew Tab) 4-8 Tablets 4 Tabl... UD PRN PO 04/05/17 16:30 05/05/17 16:29 Dextrose (Dextrose 50% 50ML Syringe) 25-50ML OF 50% DW IV FOR... UD PRN IV 04/05/17 16:30 05/05/17 16:29 Glucagon (Glucagon Inj) 1 mg UD PRN SQ 04/05/17 16:30 05/05/17 16:29 Miscellaneous Information (Consult Glycemic Management Pharmacy) 1 ea UD PRN N/A 04/05/17 17:05 05/05/17 17:04 Albuterol (Ventolin Hfa Inhaler) 2 puffs Q6H PRN INH 04/05/17 16:30 05/05/17 16:29 Allopurinol (Zyloprim Tab) 450 mg QAM PO 04/06/17 09:00 05/06/17 08:59 Cyclobenzaprine HCl (Flexeril Tab) 10 mg TID PRN PO 04/05/17 16:30 05/05/17 16:29 Doxycycline Hyclate (Vibramycin Cap) 100 mg BID PO 04/05/17 21:00 04/15/17 20:59 04/05/17 21:20 100 MG Gabapentin (Neurontin Cap) 300 mg TID PO 04/05/17 21:00 05/05/17 20:59 04/05/17 21:20 300 MG Acetaminophen/ Hydrocodone Bitart ([place] 5/325 Tab) 1 tab TID PRN PO 04/05/17 16:30 04/19/17 16:29 Isosorbide Mononitrate (Imdur Ext Rel Tab) 60 mg QAM PO 04/06/17 09:00 05/06/17 08:59 Metoprolol Tartrate (Lopressor Tab) 50 mg BID PO 04/05/17 21:00 05/05/17 20:59 04/05/17 21:21 50 MG Mirtazapine (Remeron Solutab) 15 mg HS PO 04/05/17 21:00 05/05/17 20:59 04/05/17 21:20 15 MG Prednisone (PredniSONE TAB) 5 mg DAILY PO 04/06/17 09:00 05/06/17 08:59 Rosuvastatin Calcium (Crestor Tab) 10 mg QPM PO 04/05/17 21:00 05/05/17 20:59 04/05/17 21:21 10 MG Pantoprazole Sodium (Protonix Tab) 40 mg BID PO 04/05/17 21:00 05/05/17 20:59 04/05/17 21:20 40 MG Home Meds and Scripts Medications Dose Route/Sig Max Daily Dose Days Date Category Dose Instructions Coumadin (Warfarin Sod) 2.5 Mg Tab 2 Tab PO UD 30 04/05/17 Reported 2 tabs (5mg) po on Gabapentin 300 Mg Cap 1 Cap PO TID 04/05/17 Reported [place] 5MG/325MG (Acetaminophen/Hydrocodone Bitart) Tab 1 Tablet PO TID PRN 04/05/17 Reported PRN PAIN Monodox (Doxycycline Monohydrate) 100 Mg Cap 100 Mg PO BID 15 04/05/17 Reported Imdur Ext Rel (Isosorbide Mononitrate) 60 Mg Ertab 60 Mg PO QAM 04/05/17 Reported Lopressor (Metoprolol Tartrate) 50 Mg Tab 50 Mg PO BID 03/24/17 Reported Coumadin (Warfarin Sod) 10 Mg Tab 10 Mg PO 5XWK 03/24/17 Reported monday, monday, monday, monday, and monday Senokot S (Senna/Docusate Sodium) 1 Tab Tab 1 Tab PO DAILY PRN 12/14/16 Reported Remeron Soltab (Mirtazapine) 15 Mg Soltab 15 Mg PO HS 12/14/16 Reported Ventolin Hfa (Albuterol) 200 Puffs/33105 Mcg Aers 1-2 Puffs INH Q6H PRN 12/14/16 Reported Flexeril (Cyclobenzaprine Hcl) 10 Mg Tab 10 Mg PO TID PRN 12/14/16 Reported Zyloprim (Allopurinol) 300 Mg Tab 450 Mg PO QAM 12/14/16 Reported Zestril (Lisinopril) 20 Mg Tab 20 Mg PO DAILY 12/14/16 Reported Novolog Mix 70/30 (Insulin Aspart Prota 70%/Aspart 30%) Susp 45 Units SC QPM 12/14/16 Reported Furosemide 80 Mg Tab 80 Mg PO BID 12/14/16 Reported Prednisone 5 Mg Tab 5 Mg PO DAILY 09/27/16 Reported Crestor (Rosuvastatin Calcium) 10 Mg Tab 10 Mg PO QPM 07/17/16 Reported Tylenol (Acetaminophen) 325 Mg Tab 650 Mg PO Q6H PRN 07/17/16 Reported Vitamin D2 (Ergocalciferol) Unknown Strength Tab 50,000 Units PO MONTHLY 07/17/16 Reported Novolog Mix 70/30 (Insulin Aspart Prota 70%/Aspart 30%) Susp 55 Units SC QAM 07/12/16 Reported Nitrostat (Nitroglycerin) 0.4 Mg Tab 0.4 Mg UT PRN PRN 07/02/15 Reported Prilosec (Omeprazole) 20 Mg Capcr 40 Mg PO BID 07/02/15 Reported Review of Systems Constitutional: + weakness, + fatigue, No fever Eyes: No worsening of vision ENT: No hearing loss Respiratory: + wheezing, + dyspnea on exertion, + dyspnea at rest, No cough Cardiac: + orthopnea, + edema (chronic edema at baseline), No chest pain, No palpitations Abdomen: No pain, No nausea, No vomiting, No diarrhea, No constipation Musculoskeletal: No joint pain, No muscle pain Male : + urinary frequency, No dysuria, No incontinence, No hematuria (no change in/ unexpected voiding habits) Neuro: + weakness, + balance problems, No memory loss Psych: No depression symptoms, No anxiety Heme: No abnormal bleeding/bruising Endo: + fatigue Skin: No rash, No itch, No new/changing skin lesions (feels wounds are appropriate currently) Physical Exam Date Time Temp Pulse Resp B/P (MAP) Pulse Ox O2 Delivery O2 Flow Rate FiO2 04/06/17 04:11 36.4 68 20 119/66 (83) 93 BiPAP 04/06/17 04:00 Room Air CPAP 04/05/17 23:59 Room Air CPAP 04/05/17 23:57 36.6 91 20 135/74 (94) 94 BiPAP 04/05/17 22:14 83 98 2.0 04/05/17 20:00 Room Air 04/05/17 19:14 36.4 83 22 118/69 (85) 92 Room Air 04/05/17 18:09 Room Air 04/05/17 18:00 36.4 79 24 147/77 (100) 93 Room Air 04/05/17 17:09 93 20 120/96 93 04/05/17 16:34 93 20 120/96 93 04/05/17 15:22 77 16 120/81 93 04/05/17 13:51 83 24 112/63 93 Room Air 04/05/17 12:35 36.3 116 22 119/71 94 Room Air 04/05/17 12:33 87 General Appearance: WD/WN, + mild distress (mildly dyspneic w/ speech), + obese Eyes: EOMI ENT: hearing grossly normal Neck: supple Respiratory/Chest: + respiratory distress (very mild w/ speech), + decreased breath sounds (jay R base), + crackles Cardiovascular: + irregularly irregular Abdomen: normal bowel sounds, non tender, soft, + pertinent finding (no garsia; + fluid wave) Extremities: + pedal edema, + pertinent finding (2-3+ BLE edema; wrapped to knees BL) Neurologic/Psych: alert, normal mood/affect, oriented x 3, + pertinent finding (reno, fluent speech) Skin: no jaundice, warm/dry, no rash, + pertinent finding (wounds wrapped) Diagnostics Last 24 Hours Test 04/05/17 13:23 04/05/17 13:25 04/05/17 18:08 04/05/17 19:49 Influenza Type A (RT-PCR) Neg for Influ A Influenza Type A Antigen Neg for Influ A Influenza Type B Antigen Neg for Influ B Influenza Type B (RT-PCR) Neg for Influ B White Blood Count 9.15 K/uL Red Blood Count 3.90 M/uL Hemoglobin 11.9 g/dL Hematocrit 37.6 % Mean Corpuscular Volume 96.4 fL Mean Corpuscular Hemoglobin 30.5 pg Mean Corpuscular Hemoglobin Concent 31.6 g/dl Platelet Count 144 K/uL Mean Platelet Volume 9.2 fL Neutrophils (%) (Auto) 74.3 % Lymphocytes (%) (Auto) 12.6 % Monocytes (%) (Auto) 8.3 % Eosinophils (%) (Auto) 4.0 % Basophils (%) (Auto) 0.5 % Neutrophils # (Auto) 6.79 K/uL Lymphocytes # (Auto) 1.15 K/uL Monocytes # (Auto) 0.76 K/uL Eosinophils # (Auto) 0.37 K/uL Basophils # (Auto) 0.05 K/uL RDW Standard Deviation 67.1 fL RDW Coefficient of Variation 19.1 % Immature Granulocyte % (Auto) 0.3 % Immature Granulocyte # (Auto) 0.03 K/uL Prothrombin Time 34.3 SECONDS Prothromb Time International Ratio 3.3 Activated Partial Thromboplast Time 37.1 SECONDS Partial Thromboplastin Ratio 1.4 Sodium Level 140 mmol/L Potassium Level 4.3 mmol/L Chloride Level 105 mmol/L Carbon Dioxide Level 26 mmol/L Anion Gap 9.0 mmol/L Blood Urea Nitrogen 60 mg/dl Creatinine 2.45 mg/dl Est Creatinine Clear Calc Drug Dose 37.9 ml/min Estimated GFR () 27.6 Estimated GFR (Non- 23.8 BUN/Creatinine Ratio 24.3 Random Glucose 70 mg/dl Calcium Level 8.6 mg/dl Magnesium Level 2.3 mg/dl Total Bilirubin 0.5 mg/dl Aspartate Amino Transf (AST/SGOT) 35 U/L Alanine Aminotransferase (ALT/SGPT) 33 U/L Alkaline Phosphatase 110 U/L Troponin I 0.680 ng/ml 0.491 ng/ml Pro-B-Type Natriuretic Peptide 7993 pg/ml Total Protein 6.6 gm/dl Albumin 3.0 gm/dl Globulin 3.6 gm/dl Albumin/Globulin Ratio 0.8 Bedside Glucose 72 mg/dl Test 04/05/17 20:44 04/06/17 02:03 04/06/17 06:01 Bedside Glucose 106 mg/dl 89 mg/dl White Blood Count 7.66 K/uL Red Blood Count 3.90 M/uL Hemoglobin 12.1 g/dL Hematocrit 36.8 % Mean Corpuscular Volume 94.4 fL Mean Corpuscular Hemoglobin 31.0 pg Mean Corpuscular Hemoglobin Concent 32.9 g/dl RDW Standard Deviation 65.5 fL RDW Coefficient of Variation 19.2 % Platelet Count 142 K/uL Mean Platelet Volume 9.9 fL Prothrombin Time 30.4 SECONDS Prothromb Time International Ratio 3.0 Sodium Level 139 mmol/L Potassium Level 3.8 mmol/L Chloride Level 105 mmol/L Carbon Dioxide Level 25 mmol/L Anion Gap 10.0 mmol/L Blood Urea Nitrogen 60 mg/dl Creatinine 2.34 mg/dl Est Creatinine Clear Calc Drug Dose 39.3 ml/min Estimated GFR () 29.1 Estimated GFR (Non- 25.1 BUN/Creatinine Ratio 25.6 Random Glucose 94 mg/dl Calcium Level 8.6 mg/dl Magnesium Level 2.3 mg/dl Diagnostic Radiology: cxr > congestive HF EKG: ECG this AM undetermined rhythm (not confirmed) Assessment & Plan 81 y/o M w/ DM, on chronic steroids, ICMO EF 30-35%, chronic recurrent cellulitis/ LE wounds, 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 serum chemistries acceptable as are bp, HR. He is dyspneic w/ speech but on RA. -ordered uacm -start lasix 60 mg iv bid first dose now; low threshold to increase to 60 mg tid IV if not improving -ordered PVR q shift x 3 w/ garsia order if >200 mL urine -continue fluid limit, low Na diet, strict I/O -daily bmp -f/u cardiology recs; telemetry strips w/o concerning /unanticipated findings ?indication for steroids daily <<>> a longer term clinical issue Appreciate consult; will follow with you. Care coordinated w/ Dr Nolan
--- NOTE | 2017-04-06 10:46 | Cardiology Consultation ---
Cardiology Consultation Date of Consultation: Apr 06, 2017 Requesting Physician: Juan Attending Water Taxi Driver: Adalberto (Andrew Lester PA-C) History of Present Illness Referring Provider: Juan Indication: Acute on chronic congestive heart failure Primary Care Provider: Dr. Ryder. History of Present Illness: Mr. Macedo is a complex 81 year old male, past history detailed below, who was admitted to [facility] on April 05, 2017 due to complaints of acute on chronic dyspnea and acute on chronic bilateral lower extremity peripheral edema. Recent hospitalizations in December and March reviewed. Patient notes, shortly after recent discharge, worsening dyspnea, nonproductive cough, bilateral lower extremity peripheral edema. He denies chest pain, tachypalpitations, orthopnea, PND, or scrotal/ penile edema. Denies dizziness, near syncope, or syncope. Denies productive cough, fevers, chills, soaking sweats, or change in appetite. No nausea, vomiting, or diarrhea. No hemoptysis, melena, hematochezia, or hematuria. (Andrew Lester PA-C) Past Medical/Surgical History Problem List: Atherosclerotic coronary disease, status post coronary bypass grafting x5 in September of 1994, including SNIDER graft to the LAD, free left radial graft to the obtuse marginal, pedicled right gastroepiploic artery to the posterior descending artery of the RCA, and 2 separate vein grafts to 1st diagonal and to the posterior ventricular branch of the right coronary artery. Chronic CCS Class II-III angina pectoris. Past diagnostic cardiac catheterization has found little to be amenable from percutaneous intervention or bypass surgery Chronic atrial fibrillation. Hospitalizations with acute decompensated right sided congestive heart failure Hypertension. Hyperlipidemia. Longstanding diabetes complicating with gastroparesis, neuropathy Stage III-IV chronic kidney disease Gout History of DVT and pulmonary embolism, February 2012. Obstructive sleep apnea and nocturnal hypoxemia, CPAP therapy History of Veloz's esophagus. Esophageal reflux Hiatal hernia. Nephrolithiasis Vitamin-D deficiency Arthroscopic right knee surgery x2 Left total knee replacement in 2007 Right shoulder replacement Colonoscopy with polypectomy in June 2006, hyperplastic tissue Colonoscopy with polypectomy x 4, adenomatous tissue, in January 2010 Multiple lithotripsies Multiple EGDs. (Andrew Lester PA-C) Family History Diabetes mellitus FH: cancer Family History: Adopted. Brother with liver cancer. (Andrew Lester PA-C) Diabetes mellitus FH: cancer (Сергей Glover M.D.) Social History Social History: Former smoker. Reformed smokeless tobacco user having quit 40- 45 years ago. Rare alcohol. . Eight children. Retired teacher. Lives in [facility] [address] with caregivers throughout the day, weekdays. Originally from [place]. (Andrew Lester PA-C) Review Of Systems Complete Review of Systems: SOB. Weakness. Fatigue. Peripheral edema. Recurrent cellulitis. Bilateral lower extremity wounds. Followed by Infectious disease and the [facility]. Ambulatory dysfunction. Walker. Glasses. Hip discomfort. Knee discomfort. Lumbar spinal stenosis. Chronic back pain. Complete review of systems is as stated above, negative, or noncontributory. (Andrew Lester PA-C) Allergies Coded Allergies: NO KNOWN DRUG ALLERGIES (Verified Allergy, Unknown, ., 04/05/17) Medications Reported Home Medications Medications Dose Route/Sig Max Daily Dose Days Date Category Dose Instructions Coumadin (Warfarin Sod) 2.5 Mg Tab 2 Tab PO UD 30 04/05/17 Reported 2 tabs (5mg) po on , Gabapentin 300 Mg Cap 1 Cap PO TID 04/05/17 Reported [place] 5MG/325MG (Acetaminophen/Hydrocodone Bitart) Tab 1 Tablet PO TID PRN 04/05/17 Reported PRN PAIN Monodox (Doxycycline Monohydrate) 100 Mg Cap 100 Mg PO BID 15 04/05/17 Reported Imdur Ext Rel (Isosorbide Mononitrate) 60 Mg Ertab 60 Mg PO QAM 04/05/17 Reported Lopressor (Metoprolol Tartrate) 50 Mg Tab 50 Mg PO BID 03/24/17 Reported Coumadin (Warfarin Sod) 10 Mg Tab 10 Mg PO 5XWK 03/24/17 Reported monday, monday, monday, monday, and monday Senokot S (Senna/Docusate Sodium) 1 Tab Tab 1 Tab PO DAILY PRN 12/14/16 Reported Remeron Soltab (Mirtazapine) 15 Mg Soltab 15 Mg PO HS 12/14/16 Reported Ventolin Hfa (Albuterol) 200 Puffs/22092 Mcg Aers 1-2 Puffs INH Q6H PRN 12/14/16 Reported Flexeril (Cyclobenzaprine Hcl) 10 Mg Tab 10 Mg PO TID PRN 12/14/16 Reported Zyloprim (Allopurinol) 300 Mg Tab 450 Mg PO QAM 12/14/16 Reported Zestril (Lisinopril) 20 Mg Tab 20 Mg PO DAILY 12/14/16 Reported Novolog Mix 70/30 (Insulin Aspart Prota 70%/Aspart 30%) Susp 45 Units SC QPM 12/14/16 Reported Furosemide 80 Mg Tab 80 Mg PO BID 12/14/16 Reported Prednisone 5 Mg Tab 5 Mg PO DAILY 09/27/16 Reported Crestor (Rosuvastatin Calcium) 10 Mg Tab 10 Mg PO QPM 07/17/16 Reported Tylenol (Acetaminophen) 325 Mg Tab 650 Mg PO Q6H PRN 07/17/16 Reported Vitamin D2 (Ergocalciferol) Unknown Strength Tab 50,000 Units PO MONTHLY 07/17/16 Reported Novolog Mix 70/30 (Insulin Aspart Prota 70%/Aspart 30%) Susp 55 Units SC QAM 07/12/16 Reported Nitrostat (Nitroglycerin) 0.4 Mg Tab 0.4 Mg UT PRN PRN 07/02/15 Reported Prilosec (Omeprazole) 20 Mg Capcr 40 Mg PO BID 07/02/15 Reported (Andrew Lester PA-C) Physical Exam Vital Signs (Last 8hrs): Last 8 Hrs Date Time Temp Pulse Resp B/P (MAP) Pulse Ox O2 Delivery O2 Flow Rate FiO2 04/06/17 08:04 36.4 85 20 141/104 (116) 97 Room Air 04/06/17 08:00 Room Air 04/06/17 04:11 36.4 68 20 119/66 (83) 93 BiPAP 04/06/17 04:00 Room Air CPAP General: Alert and Oriented x3. NAD. Elevated BMI HEENT: Normocephalic Atraumatic. PER, EOMI, conjunctiva and sclera clear Neck: Neck is very thick. I did not appreciate his jugular veins. No carotid bruits. Respiratory: Decreased at the bases. Faint left basilar rales. No wheeze. Cardiovascular: Distant heart sounds. Irregularly irregular in the 70's. I could not appreciate any murmur. Abdomen: Markedly obese. +BS. Somewhat first. Nontender. No overt masses. Extremities: 2-3+ edema to the hips. Dressing covering the bilateral wounds ( not removed). No cyanosis. No pulses palpable through dressings. Neuro: No focal deficits. Psychiatric: Normal affect. (Andrew Lester PA-C) Data Last 24 Hours Test 04/05/17 13:23 04/05/17 13:25 04/05/17 18:08 04/05/17 19:49 Influenza Type A (RT-PCR) Neg for Influ A Influenza Type A Antigen Neg for Influ A Influenza Type B Antigen Neg for Influ B Influenza Type B (RT-PCR) Neg for Influ B White Blood Count 9.15 K/uL Red Blood Count 3.90 M/uL Hemoglobin 11.9 g/dL Hematocrit 37.6 % Mean Corpuscular Volume 96.4 fL Mean Corpuscular Hemoglobin 30.5 pg Mean Corpuscular Hemoglobin Concent 31.6 g/dl Platelet Count 144 K/uL Mean Platelet Volume 9.2 fL Neutrophils (%) (Auto) 74.3 % Lymphocytes (%) (Auto) 12.6 % Monocytes (%) (Auto) 8.3 % Eosinophils (%) (Auto) 4.0 % Basophils (%) (Auto) 0.5 % Neutrophils # (Auto) 6.79 K/uL Lymphocytes # (Auto) 1.15 K/uL Monocytes # (Auto) 0.76 K/uL Eosinophils # (Auto) 0.37 K/uL Basophils # (Auto) 0.05 K/uL RDW Standard Deviation 67.1 fL RDW Coefficient of Variation 19.1 % Immature Granulocyte % (Auto) 0.3 % Immature Granulocyte # (Auto) 0.03 K/uL Prothrombin Time 34.3 SECONDS Prothromb Time International Ratio 3.3 Activated Partial Thromboplast Time 37.1 SECONDS Partial Thromboplastin Ratio 1.4 Sodium Level 140 mmol/L Potassium Level 4.3 mmol/L Chloride Level 105 mmol/L Carbon Dioxide Level 26 mmol/L Anion Gap 9.0 mmol/L Blood Urea Nitrogen 60 mg/dl Creatinine 2.45 mg/dl Est Creatinine Clear Calc Drug Dose 37.9 ml/min Estimated GFR () 27.6 Estimated GFR (Non- 23.8 BUN/Creatinine Ratio 24.3 Random Glucose 70 mg/dl Calcium Level 8.6 mg/dl Magnesium Level 2.3 mg/dl Total Bilirubin 0.5 mg/dl Aspartate Amino Transf (AST/SGOT) 35 U/L Alanine Aminotransferase (ALT/SGPT) 33 U/L Alkaline Phosphatase 110 U/L Troponin I 0.680 ng/ml 0.491 ng/ml Pro-B-Type Natriuretic Peptide 7993 pg/ml Total Protein 6.6 gm/dl Albumin 3.0 gm/dl Globulin 3.6 gm/dl Albumin/Globulin Ratio 0.8 Bedside Glucose 72 mg/dl Test 04/05/17 20:44 04/06/17 02:03 04/06/17 06:01 Bedside Glucose 106 mg/dl 89 mg/dl White Blood Count 7.66 K/uL Red Blood Count 3.90 M/uL Hemoglobin 12.1 g/dL Hematocrit 36.8 % Mean Corpuscular Volume 94.4 fL Mean Corpuscular Hemoglobin 31.0 pg Mean Corpuscular Hemoglobin Concent 32.9 g/dl RDW Standard Deviation 65.5 fL RDW Coefficient of Variation 19.2 % Platelet Count 142 K/uL Mean Platelet Volume 9.9 fL Prothrombin Time 30.4 SECONDS Prothromb Time International Ratio 3.0 Sodium Level 139 mmol/L Potassium Level 3.8 mmol/L Chloride Level 105 mmol/L Carbon Dioxide Level 25 mmol/L Anion Gap 10.0 mmol/L Blood Urea Nitrogen 60 mg/dl Creatinine 2.34 mg/dl Est Creatinine Clear Calc Drug Dose 39.3 ml/min Estimated GFR () 29.1 Estimated GFR (Non- 25.1 BUN/Creatinine Ratio 25.6 Random Glucose 94 mg/dl Calcium Level 8.6 mg/dl Magnesium Level 2.3 mg/dl December 15, 2016 TTE Interpretation Summary: The left ventricle is normal in size. There is moderate concentric left ventricular hypertrophy. The inferior and posterior are severely hypokinetic at the base and midlevels as is the anterior apex The remaining left ventricular wall segments are hypokinetic. Ejection Fraction = 30-35%. Aortic valve sclerosis moderate, without significant aortic valvular stenosis. The inferior vena cava is moderately dilated April 05, 2017 EKG is poor in data quality, demonstrating atrial fibrillation with PVC's or aberrantly conducted complexes, low voltage, possible old inferior and anterior infarcts. April 06, 2017 EKG revealed atrial fibrillation, incomplete right bundle branch block pattern, multifocal PVC's, possible old inferior infarct. QRS Duration 118 ms. QTc 441 ms. Telemetry: Atrial fibrillation with frequent PVC's including periods of bigeminy. (Andrew Lester PA-C) Assessment & Plan Acute on chronic right greater than left biventricular congestive heart failure signs and symptoms RECOMMENDATIONS: IV diuresis as ordered by Nephrology, 60 mg BID. This may need to be increased further. Sodium and fluid restriction. Strict I/O's, daily weights on the same standing scale Lisinopril (20 mg/day) held on admission. ? Wash out ACEI x 36 hours and switch to Entresto (Sacubitril 24 mg/valsartan 26 mg twice daily given renal dysfunction) Continue beta-leah (metoprolol), nitrates (Imdur), statin (rosuvastatin), and aspirin Continue chronic Coumadin anticoagulation with an INR goal of 2.0 to 3.0. (Andrew Lester PA-C) Patient seen and examined, agree with assessment and plan. during past similar admission 12/30 patient responded to metolazone po in addtion to IV furosemide. Entresto to be conidered as above. Сергей Glover MD (Сергей Glover,MJose Ramon.)
--- NOTE | 2017-04-06 14:17 | Pharmacy Progress Note ---
Glycemic Control Progress Note Date of Service Apr 06, 2017. Scope Glycemic Pharmacist consulted for glycemic control to write orders per [facility] inpatient glycemic control protocol. Objective Accuchecks BSG (last 24hrs): Test 04/05/17 18:08 04/05/17 20:44 04/06/17 02:03 04/06/17 06:01 Bedside Glucose 72 mg/dl (70-99) 106 mg/dl (70-99) 89 mg/dl (70-99) Random Glucose 94 mg/dl (70-99) Test 04/06/17 10:46 Bedside Glucose 146 mg/dl (70-99) Recent Pertinent Medications The patient is currently receiving: * Basal insulin: Lantus every 12 hours: 0 units if BSG less than 180 , 20 units if BSG 180 or greater * Correctional Insulin: Novolog Correction per scale ACHS Goal Range: Low 110 mg/dL - High 140 mg/dL Correction Factor: 15 mg/dL/unit * Prandial insulin: Per carb ratio of 1 unit per 5 grams CHO consumed Outpatient Anti-Diabetic Meds Novolog 70/30 55 units w/ breakfast + 45 units w/ dinner Assessment & Plan ASSESSMENT: 04/06/17 * BSGs have ranged 70-146 over the last 24 hrs * Fasting BSG 89-93 this AM with no basal insulin on board * Pre-lunch BSG 146 after receiving Novolog 12 units w/ breakfast meal * Current insulin orders are performing well * It is rather surprising that he is requiring much less insulin now than he did while hospitalized earlier this month (he routinely required ~100+ units of insulin per day while tolerating a diet) * Will titrate the Lantus dosing scale upwards somewhat as his BSGs appear to be recovering from the low he experienced [employer] yesterday - his insulin needs will likely increase over the following 24-48 hours if tolerating a diet PLAN FOR INPATIENT GLYCEMIC CONTROL: * Continuing Lantus SQ BID: * 0 units if BSG less than 120 * 15 units if BSG 120-180 * 20 units if BSG above 180 * Continuing correction factor 15 mg/dl/unit * Continuing carb ratio of 1 unit per 5 grams CHO consumed * Continuing goal range of Low 110 mg/dL - High 140 mg/dL * Please note that the plan above was derived based on current level of insulin resistance and hospital stress. These recommendations are appropriate for inpatient admission only. Plan of care upon discharge will need to be reassessed to avoid potential outpatient hypo/hyperglycemia. Thank you.
--- NOTE | 2017-04-06 15:21 | Progress Note ---
Medicine Progress Note Date & Time of Visit: Apr 06, 2017 at 15:21. Subjective delayed entry date of service as noted above seen resting in bed states breathing is improving denies chest pain noted to have "choked" on brocolli denies other symptoms Objective Last 8 Hrs Date Time Temp Pulse Resp B/P (MAP) Pulse Ox O2 Delivery O2 Flow Rate FiO2 04/06/17 12:09 Room Air 04/06/17 12:00 Room Air 04/06/17 11:57 36.7 70 22 117/56 (76) 94 Room Air 04/06/17 08:04 36.4 85 20 141/104 (116) 97 Room Air 04/06/17 08:00 Room Air Physical Exam: General- oriented x 3, not in distress Head- atraumatic Eyes- anicteric ENT- oropharynx clear Neck- supple, no JVD Lungs- mild rales at the bases Heart- regular rhythm; no murmur, normal rate Abdomen- normal bowel sounds, soft, nontender Extremities- lower legs with heavy dressing/wrap in place, no calf tenderness Neuro- alert, oriented x 3; no gross focal deficits Skin- warm & dry Laboratory Results: Last 24 Hours Test 04/05/17 18:08 04/05/17 19:49 04/05/17 20:44 04/06/17 02:03 Bedside Glucose 72 mg/dl 106 mg/dl 89 mg/dl Troponin I 0.491 ng/ml Test 04/06/17 06:01 04/06/17 07:08 04/06/17 10:46 White Blood Count 7.66 K/uL Red Blood Count 3.90 M/uL Hemoglobin 12.1 g/dL Hematocrit 36.8 % Mean Corpuscular Volume 94.4 fL Mean Corpuscular Hemoglobin 31.0 pg Mean Corpuscular Hemoglobin Concent 32.9 g/dl RDW Standard Deviation 65.5 fL RDW Coefficient of Variation 19.2 % Platelet Count 142 K/uL Mean Platelet Volume 9.9 fL Prothrombin Time 30.4 SECONDS Prothromb Time International Ratio 3.0 Sodium Level 139 mmol/L Potassium Level 3.8 mmol/L Chloride Level 105 mmol/L Carbon Dioxide Level 25 mmol/L Anion Gap 10.0 mmol/L Blood Urea Nitrogen 60 mg/dl Creatinine 2.34 mg/dl Est Creatinine Clear Calc Drug Dose 39.3 ml/min Estimated GFR () 29.1 Estimated GFR (Non- 25.1 BUN/Creatinine Ratio 25.6 Random Glucose 94 mg/dl Calcium Level 8.6 mg/dl Magnesium Level 2.3 mg/dl Bedside Glucose 93 mg/dl 146 mg/dl Assessment & Plan 81 year old male with history of Ischemic Cardiomyopathy, CAD, Atrial Fibrillation on Coumadin, DM 2, HTN, CKD 3... ACUTE ON CHRONIC SYSTOLIC HEART FAILURE ISCHEMIC CARDIOMYOPATHY - echo 12/30: EF: 30-35%. No CP - Cardiology and Nephrology on board Lasix 60mg IV BID continue to monitor diuresis -continue beta leah, isosorbide, statin holding lisinopril at this time with YAMEL YAMEL on CKD III Cr: 2.4. baseline high 1's -hold lisinopril at this time Nephrology on board A-FIB on CHRONIC COUMADIN rate controlled at this time. INR: 3.0 -hold coumadin and monitor INR -continue beta leah INSULIN DEPENDENT DM II Pt reports BS varying. Reports low in 30's today increased to 90 with orange juice. HA1c on 03/25/17 was 7.9 -hold home 70/30 -basal and Novolog sliding scale -glycemic consult CELLULITIS D/C from hospital on 03/29/17 for BLE cellulitis. +MRSA. Follows with ID and wound clinic. No fever/chills, no increased erythema -continue doxycycline -wound consult SHAUNA -CPAP HS DVT Prophylaxis -On coumadin Disposition admit tele Full Code as per discussion with pt Follows with Dr Ryder for routine care Current Inpatient Medications: Current Inpatient Medications Medications (Trade) Dose Ordered Sig/Aileen Route Start Time Stop Time Status Last Admin Dose Admin Acetaminophen (Tylenol Tab) 650 mg Q4H PRN PO 04/05/17 16:15 05/05/17 16:14 Magnesium Hydroxide (Milk Of Magnesia Susp) 30 ml Q12H PRN PO 04/05/17 16:15 05/05/17 16:14 Nitroglycerin (Nitrostat Tab) 0.4 mg UD PRN SL 04/05/17 16:15 05/05/17 16:14 Insulin Glargine (Lantus Solostar Pen) SEE PROTOCOL TXT Q12 SC 04/05/17 21:00 05/05/17 20:59 Insulin Aspart (novoLOG ASPART) SLIDING SCALE If C... ACHS SC 04/05/17 16:00 05/05/17 15:59 04/06/17 08:12 15 UNITS Glucose (Glucose 40% Gel) 15-30 GRAMS 15 GRAMS... UD PRN PO 04/05/17 16:30 05/05/17 16:29 Glucose (Glucose Chew Tab) 4-8 Tablets 4 Tabl... UD PRN PO 04/05/17 16:30 05/05/17 16:29 Dextrose (Dextrose 50% 50ML Syringe) 25-50ML OF 50% DW IV FOR... UD PRN IV 04/05/17 16:30 05/05/17 16:29 Glucagon (Glucagon Inj) 1 mg UD PRN SQ 04/05/17 16:30 05/05/17 16:29 Miscellaneous Information (Consult Glycemic Management Pharmacy) 1 ea UD PRN N/A 04/05/17 17:05 05/05/17 17:04 Albuterol (Ventolin Hfa Inhaler) 2 puffs Q6H PRN INH 04/05/17 16:30 05/05/17 16:29 Allopurinol (Zyloprim Tab) 450 mg QAM PO 04/06/17 09:00 05/06/17 08:59 04/06/17 08:03 450 MG Cyclobenzaprine HCl (Flexeril Tab) 10 mg TID PRN PO 04/05/17 16:30 05/05/17 16:29 Doxycycline Hyclate (Vibramycin Cap) 100 mg BID PO 04/05/17 21:00 04/15/17 20:59 04/06/17 08:03 100 MG Gabapentin (Neurontin Cap) 300 mg TID PO 04/05/17 21:00 05/05/17 20:59 04/06/17 08:02 300 MG Acetaminophen/ Hydrocodone Bitart (Liberal 5/325 Tab) 1 tab TID PRN PO 04/05/17 16:30 04/19/17 16:29 Isosorbide Mononitrate (Imdur Ext Rel Tab) 60 mg QAM PO 04/06/17 09:00 05/06/17 08:59 04/06/17 08:02 60 MG Metoprolol Tartrate (Lopressor Tab) 50 mg BID PO 04/05/17 21:00 05/05/17 20:59 04/06/17 08:02 50 MG Mirtazapine (Remeron Solutab) 15 mg HS PO 04/05/17 21:00 05/05/17 20:59 04/05/17 21:20 15 MG Prednisone (PredniSONE TAB) 5 mg DAILY PO 04/06/17 09:00 05/06/17 08:59 04/06/17 08:03 5 MG Rosuvastatin Calcium (Crestor Tab) 10 mg QPM PO 04/05/17 21:00 05/05/17 20:59 04/05/17 21:21 10 MG Pantoprazole Sodium (Protonix Tab) 40 mg BID PO 04/05/17 21:00 05/05/17 20:59 04/06/17 08:03 40 MG Furosemide 60 mg/ Syringe 6 ml @ 4 mls/min BID17 IV 04/06/17 09:00 05/06/17 08:59 04/06/17 09:04 4 MLS/MIN
[2017-04-06] MEDS: MIRTAZAPINE SOLTAB 15 MG PO SCH (20:38)
[2017-04-06] MEDS: ROSUVASTATIN CALCIUM 10 MG TAB PO SCH (20:38)
[2017-04-07] VITALS (7 sets, daily range): BP systolic 107–132; BP diastolic 61–79; PULSE 60–71; TEMP 36.4–37; O2SAT 93–96
[2017-04-07] MEDS: INSULIN ASPART 100 UNITS/ML 3 ML PEN SC SCH ×4 (07:42→20:58)
[2017-04-07] MEDS: FUROSEMIDE INJ 60 MG in SYRINGE 0 ML IV SCH ×2 (08:21→17:07)
[2017-04-07] MEDS: ISOSORBIDE MONONITRATE 60 MG TABCR PO SCH (08:21)
[2017-04-07] MEDS: ALLOPURINOL 300 MG TAB PO SCH (08:21)
[2017-04-07] MEDS: GABAPENTIN 300 MG CAP PO SCH ×3 (08:21→20:54)
[2017-04-07] MEDS: DOXYCYCLINE HYCLATE 100 MG CAP PO SCH ×2 (08:21→20:55)
[2017-04-07] MEDS: METOPROLOL TARTRATE 50 MG TAB PO SCH ×2 (08:22→20:54)
[2017-04-07] MEDS: PANTOprazole SOD 40 MG TAB PO SCH ×2 (08:22→20:55)
[2017-04-07] MEDS: INSULIN GLARGINE SOLOSTAR 100 UNITS/ML 3 ML PEN SC SCH ×2 (08:24→20:58)
[2017-04-07 08:32] LABS: INR 2.6 (0.9-1.1)
[2017-04-07 09:04] LABS: CALCIUM 9.1 mg/dl (8.5-10.1); CREATININE 2.35 mg/dl (0.60-1.40); POTASSIUM 3.6 mmol/L (3.5-5.1)
--- NOTE | 2017-04-07 09:22 | Cardiology Follow-Up ---
Subjective General Date of Service: Apr 07, 2017. Chief Complaint: Heart failure Pt evaluation today including: conversation w/ patient, physical exam, chart review, lab review, review of studies, review of inpatient medication list History of Present Illness Mildly improved. Ongoing nonproductive cough, acute on chronic dyspnea, and volume overload. Spent the night (12 to 6) in the chair. Denies chest pain, palpitations, dizziness, fevers, or chills. I/O negative 1,697 mL's overall. Weight is recorded to be negative 1.6 kg (3.5 pounds) since admission. Telemetry: Chronic atrial fibrillation with a controlled ventricular response. Frequent ventricular ectopy in singles, couplets, and rare triplets, periods of bigeminy. Allergies Coded Allergies: NO KNOWN DRUG ALLERGIES (Verified Allergy, Unknown, ., 04/05/17) Social History Hx Tobacco Use In Past Year?: No Hx Alcohol Use - Type And Amou: No Hx Substance Use - Type And Am: No Problem List Medical Problems: (1) A-fib Status: Acute (2) Abnormal ECG Status: Acute (3) Acute electrocardiogram changes Status: Acute (4) Acute electrocardiogram changes Status: Acute (5) Acute kidney injury Status: Acute (6) Acute renal failure Status: Acute (7) Anemia Status: Acute (8) Atrial fibrillation with RVR Status: Acute (9) CHF (congestive heart failure) Status: Acute (10) CHF (congestive heart failure) Status: Acute (11) Dysphagia Status: Acute (12) Edema Status: Acute (13) Elevated troponin Status: Acute (14) Hyperglycemia Status: Acute (15) Hypoglycemia Status: Acute (16) Hypoglycemia Status: Acute (17) Hypoglycemia Status: Acute (18) Hypoxia Status: Acute (19) Insulin dependent diabetes mellitus Status: Acute (20) Jaw pain Status: Acute (21) NSTEMI (non-ST elevated myocardial infarction) Status: Acute (22) Right leg pain Status: Acute (23) Shortness of breath Status: Acute (24) Supratherapeutic INR Status: Acute Physical Exam Vital Signs Last Vital Signs Documentation Date Time Temp Pulse Resp B/P (MAP) Pulse Ox O2 Delivery O2 Flow Rate FiO2 04/07/17 07:57 36.4 70 18 115/61 (79) 93 Room Air 04/06/17 21:33 21 04/05/17 22:14 2.0 Physical Exam Constitutional: General Apperance: obese Level of Distress: mild distress Psychiatric: Mental Status: active & alert Orientation: to time, to place, to person Memory: recent memory normal, remote memory normal Head: normocephalic, atraumatic Eyes: Pupils: PERRLA Neck: pertinent finding (No overt JVD observed. Note: Patient examined in a chair) Lungs: Auscultation: no wheezing, no rhonchi, deminished air movement, decreased breath sounds, rales/crackles on the right Cardiovascular: Heart Auscultation: no murmurs, no rubs, irregular rate rhythm Peripheral Pulses: Radial Pulse: normal on the left, normal on the right Dorsalis Pedis Pulse: absent on the left, absent on the right Abdomen: Bowel Sounds: normal Inspection & Palpation: distended Extremities: no cyanosis, edema (considerable edema into the upper thighs), ulcers Neurologic: Cranial Nerves: grossly intact Assessment and Plan Assessment and Plan Acute on chronic right greater than left biventricular congestive heart failure signs and symptoms RECOMMENDATIONS: Continue IV diuresis with furosemide. Add sequential diuresis with metolazone 60 minutes prior to AM IV furosemide if he does not continue to response to the IV loop diuretic Add oral supplemental potassium given borderline level, ventricular ectopy Continue sodium and fluid restriction. Monitor I/O's and daily weights on the same standing scale Continue to hold Lisinopril (20 mg/day). ? Wash out ACEI x 36 hours and switch to Entresto (Sacubitril 24 mg/valsartan 26 mg twice daily -> reduced given renal dysfunction) Continue beta-leah (metoprolol), nitrates (Imdur), statin (rosuvastatin), and aspirin Continue chronic Coumadin anticoagulation with an INR goal of 2.0 to 3.0. Institutionalization would likely be most beneficial at future management, decreasing readmission, etc. Patient seen and examined, assessment as above. Weight is down 1.5 kg (bedscale ) but still persistent right heart failure. Renal function is unchanged Plan as above Сергей Glover MD Laboratory Results Last 24 Hours Test 04/06/17 10:46 04/06/17 16:24 04/06/17 20:26 04/07/17 07:13 Bedside Glucose 146 mg/dl 183 mg/dl 176 mg/dl 136 mg/dl Test 04/07/17 08:06 Prothrombin Time 27.1 SECONDS Prothromb Time International Ratio 2.6 Sodium Level 142 mmol/L Potassium Level 3.6 mmol/L Chloride Level 107 mmol/L Carbon Dioxide Level 27 mmol/L Anion Gap 8.0 mmol/L Blood Urea Nitrogen 64 mg/dl Creatinine 2.35 mg/dl Est Creatinine Clear Calc Drug Dose 38.9 ml/min Estimated GFR () 29.0 Estimated GFR (Non- 25.0 BUN/Creatinine Ratio 27.4 Random Glucose 140 mg/dl Calcium Level 9.1 mg/dl Magnesium Level 2.5 mg/dl
[2017-04-07] MEDS: POTASSIUM CHLORIDE 20 MEQ TABCR PO SCH ×2 (11:43→20:55)
--- NOTE | 2017-04-07 13:17 | DIAGNOSTIC IMAGING REPORT ---
VIDEO SWALLOW HISTORY: Heart failure. r/o aspiration; please schedule per order TECHNIQUE: Video fluoroscopic evaluation of swallowing was performed in the AP and lateral projections by the speech pathology staff. The patient is fed nectar-thick and thin liquid barium, a barium coated wafer, and barium pudding. FLUOROSCOPY TIME: 1.8 minutes. A cine loop submitted. COMPARISON STUDY: Video swallow 07/29/2015. FINDINGS: There is normal hyoid excursion and epiglottic deflection. There is an episode of silent aspiration with the serial swallows of the thin liquid barium. No aspiration identified with the remaining barium consistencies. Significant esophageal dysmotility with the column of barium remaining in the esophagus. This remains unchanged. IMPRESSION: 1. An episode of silent aspiration with the thin liquid barium. 2. Significant esophageal dysmotility, unchanged. 3. Please see the speech pathologist report for detailed findings and recommendations. Electronically signed by: Bandar Belle M.D. 04/07/2017 1:16 PM Dictated Date/Time: 04/07/2017 1:13 PM
--- NOTE | 2017-04-07 17:56 | Nephrology Progress Note ---
Nephrology Progress Note Date of Service: Apr 07, 2017. Subjective sitting in chair on RA; seen on rounds at 0900; no c/o except poor sleep; feels slightly improved still weak Objective Date Time Temp Pulse Resp B/P (MAP) Pulse Ox O2 Delivery O2 Flow Rate FiO2 04/07/17 07:57 36.4 70 18 115/61 (79) 93 Room Air 04/07/17 04:33 36.4 60 18 132/68 (89) 96 Room Air 04/07/17 04:00 Room Air 04/07/17 01:00 Room Air 04/06/17 23:38 36.5 73 20 133/63 (86) 94 CPAP 04/06/17 21:33 70 96 21 04/06/17 21:02 37.0 79 20 101/62 (75) 92 Room Air 04/06/17 20:15 92 Room Air 04/06/17 16:00 Room Air 04/06/17 15:55 36.4 62 20 120/65 (83) 96 Room Air 04/06/17 12:09 Room Air 04/06/17 12:00 Room Air 04/06/17 11:57 36.7 70 22 117/56 (76) 94 Room Air Physical Exam: General Appearance: WD/WN, today only very faintly dyspneic w/ speech, + obese , up in chair on RA Eyes: EOMI ENT: hearing grossly normal Neck: supple Respiratory/Chest: moves air a bit better; still diminished, bibasilar fine crackles Cardiovascular: + irregularly irregular Abdomen: normal bowel sounds, non tender, soft, + pertinent finding (no garsia; + fluid wave) Extremities: + pedal edema, + pertinent finding (2+ BLE edema; wrapped to knees BL) Neurologic/Psych: alert, normal mood/affect, oriented x 3, + pertinent finding (reno, fluent speech) Skin: no jaundice, warm/dry, no rash, + pertinent finding (wounds wrapped) Current Inpatient Medications Medications (Trade) Dose Ordered Sig/Aileen Route Start Time Stop Time Status Last Admin Dose Admin Acetaminophen (Tylenol Tab) 650 mg Q4H PRN PO 04/05/17 16:15 05/05/17 16:14 Magnesium Hydroxide (Milk Of Magnesia Susp) 30 ml Q12H PRN PO 04/05/17 16:15 05/05/17 16:14 Nitroglycerin (Nitrostat Tab) 0.4 mg UD PRN SL 04/05/17 16:15 05/05/17 16:14 Insulin Glargine (Lantus Solostar Pen) SEE PROTOCOL TXT Q12 SC 04/05/17 21:00 05/05/17 20:59 04/06/17 20:41 15 UNITS Insulin Aspart (novoLOG ASPART) SLIDING SCALE If C... ACHS SC 04/05/17 16:00 05/05/17 15:59 04/07/17 07:42 15 UNITS Glucose (Glucose 40% Gel) 15-30 GRAMS 15 GRAMS... UD PRN PO 04/05/17 16:30 05/05/17 16:29 Glucose (Glucose Chew Tab) 4-8 Tablets 4 Tabl... UD PRN PO 04/05/17 16:30 05/05/17 16:29 Dextrose (Dextrose 50% 50ML Syringe) 25-50ML OF 50% DW IV FOR... UD PRN IV 04/05/17 16:30 05/05/17 16:29 Glucagon (Glucagon Inj) 1 mg UD PRN SQ 04/05/17 16:30 05/05/17 16:29 Miscellaneous Information (Consult Glycemic Management Pharmacy) 1 ea UD PRN N/A 04/05/17 17:05 05/05/17 17:04 Albuterol (Ventolin Hfa Inhaler) 2 puffs Q6H PRN INH 04/05/17 16:30 05/05/17 16:29 Allopurinol (Zyloprim Tab) 450 mg QAM PO 04/06/17 09:00 05/06/17 08:59 04/06/17 08:03 450 MG Cyclobenzaprine HCl (Flexeril Tab) 10 mg TID PRN PO 04/05/17 16:30 05/05/17 16:29 Doxycycline Hyclate (Vibramycin Cap) 100 mg BID PO 04/05/17 21:00 04/15/17 20:59 04/06/17 20:38 100 MG Gabapentin (Neurontin Cap) 300 mg TID PO 04/05/17 21:00 05/05/17 20:59 04/06/17 20:38 300 MG Acetaminophen/ Hydrocodone Bitart ([place] 5/325 Tab) 1 tab TID PRN PO 04/05/17 16:30 04/19/17 16:29 Isosorbide Mononitrate (Imdur Ext Rel Tab) 60 mg QAM PO 04/06/17 09:00 05/06/17 08:59 04/06/17 08:02 60 MG Metoprolol Tartrate (Lopressor Tab) 50 mg BID PO 04/05/17 21:00 05/05/17 20:59 04/06/17 20:38 50 MG Mirtazapine (Remeron Solutab) 15 mg HS PO 04/05/17 21:00 05/05/17 20:59 04/06/17 20:38 15 MG Prednisone (PredniSONE TAB) 5 mg DAILY PO 04/06/17 09:00 05/06/17 08:59 04/06/17 08:03 5 MG Rosuvastatin Calcium (Crestor Tab) 10 mg QPM PO 04/05/17 21:00 05/05/17 20:59 04/06/17 20:38 10 MG Pantoprazole Sodium (Protonix Tab) 40 mg BID PO 04/05/17 21:00 05/05/17 20:59 04/06/17 20:38 40 MG Furosemide 60 mg/ Syringe 6 ml @ 4 mls/min BID17 IV 04/06/17 09:00 05/06/17 08:59 04/06/17 17:04 4 MLS/MIN Last 24 Hours Test 04/06/17 10:46 04/06/17 16:24 04/06/17 20:26 04/07/17 07:13 Bedside Glucose 146 mg/dl 183 mg/dl 176 mg/dl 136 mg/dl Test 04/07/17 08:06 Assessment & Plan 81 y/o M w/ DM, on chronic steroids, ICMO EF 30-35%, chronic recurrent cellulitis/ LE wounds, 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 serum chemistries acceptable as are bp, HR. He is dyspneic w/ speech but on RA. -f/u pending [facility] -cont lasix 60 mg iv bid ; low threshold to increase to 60 mg tid IV if not improving -cont standing K suppls 20 mEq bid -recommend pvr -continue fluid limit, low Na diet, strict I/O, standing wts -daily bmp -f/u cardiology recs; would hold on entresto for now while actively diuresing/ until renal function stabilized ?indication for steroids daily <<>> a longer term clinical issue; hospitalist evaluating Appreciate consult; will follow with you.
[2017-04-07] MEDS ORDERED: WARFARIN SOD 3 MG TAB PO ONE (18:31)
--- NOTE | 2017-04-07 18:32 | Progress Note ---
Medicine Progress Note Date & Time of Visit: Apr 07, 2017 at 18:29. Subjective seen sitting up in chair, having dinner in good spirits states he feels ok today no dyspnea, chest pain, palpitations, dizziness tolerating diet so far no other symptoms Objective Last 8 Hrs Date Time Temp Pulse Resp B/P (MAP) Pulse Ox O2 Delivery O2 Flow Rate FiO2 04/07/17 16:06 36.4 70 22 115/71 (86) 94 Room Air 04/07/17 16:00 Room Air 04/07/17 12:00 Room Air 04/07/17 11:50 36.6 69 18 126/72 (90) 93 Room Air Physical Exam: General- oriented x 3, not in distress Eyes- anicteric Neck- no JVD Lungs- clear breath sounds bilaterally Heart- regular rhythm; no murmur, normal rate Abdomen- normal bowel sounds, soft, nontender Extremities- lower legs with heavy dressing/wrap in place, no calf tenderness Neuro- alert, oriented x 3; no gross focal deficits Skin- warm & dry Laboratory Results: Last 24 Hours Test 04/06/17 20:26 04/07/17 07:13 04/07/17 08:06 04/07/17 09:52 Bedside Glucose 176 mg/dl 136 mg/dl Prothrombin Time 27.1 SECONDS Prothromb Time International Ratio 2.6 Sodium Level 142 mmol/L Potassium Level 3.6 mmol/L Chloride Level 107 mmol/L Carbon Dioxide Level 27 mmol/L Anion Gap 8.0 mmol/L Blood Urea Nitrogen 64 mg/dl Creatinine 2.35 mg/dl Est Creatinine Clear Calc Drug Dose 38.9 ml/min Estimated GFR () 29.0 Estimated GFR (Non- 25.0 BUN/Creatinine Ratio 27.4 Random Glucose 140 mg/dl Calcium Level 9.1 mg/dl Magnesium Level 2.5 mg/dl Urine Color YELLOW Urine Appearance CLEAR Urine pH 5.0 Urine Specific [place] 1.011 Urine Protein NEG Urine Glucose (UA) NEG Urine Ketones NEG Urine Occult Blood NEG Urine Nitrite NEG Urine Bilirubin NEG Urine Urobilinogen NEG Urine Leukocyte Esterase NEG Urine WBC (Auto) 1-5 /hpf Urine RBC (Auto) 0-4 /hpf Urine Hyaline Casts (Auto) 1-5 /lpf Urine Epithelial Cells (Auto) 0-5 /lpf Urine Bacteria (Auto) NEG Test 04/07/17 11:40 04/07/17 16:28 Bedside Glucose 139 mg/dl 172 mg/dl Assessment & Plan 81 year old male with history of Ischemic Cardiomyopathy, CAD, Atrial Fibrillation on Coumadin, DM 2, HTN, CKD 3... ACUTE ON CHRONIC SYSTOLIC HEART FAILURE ISCHEMIC CARDIOMYOPATHY - echo 12/30: EF: 30-35%. No CP - Cardiology and Nephrology on board Lasix 60mg IV BID continue to monitor diuresis -continue beta leah, isosorbide, statin holding lisinopril at this time with YAMEL YAMEL on CKD III Cr: 2.4. baseline high 1's - crea 2.3 -hold lisinopril at this time Nephrology on board A-FIB on CHRONIC COUMADIN rate controlled at this time. INR: 2.6 - resume coumadin, decrease to 3mg po daily -continue beta leah DYSPHAGIA - s/p VF Swallow test: (+) significant esophageal dysmotility - diet modified - will consult GI INSULIN DEPENDENT DM II Pt reports BS varying. Reports low in 30's today increased to 90 with orange juice. HA1c on 03/25/17 was 7.9 -hold home 70/30 -basal and Novolog sliding scale -glycemic consult CELLULITIS D/C from hospital on 03/29/17 for BLE cellulitis. +MRSA. Follows with ID and wound clinic. No fever/chills, no increased erythema -continue doxycycline -wound consult SHAUNA -CPAP HS DVT Prophylaxis -On coumadin Disposition admit tele Full Code as per discussion with pt Follows with Dr Ryder for routine care Current Inpatient Medications: Current Inpatient Medications Medications (Trade) Dose Ordered Sig/Aileen Route Start Time Stop Time Status Last Admin Dose Admin Acetaminophen (Tylenol Tab) 650 mg Q4H PRN PO 04/05/17 16:15 05/05/17 16:14 Magnesium Hydroxide (Milk Of Magnesia Susp) 30 ml Q12H PRN PO 04/05/17 16:15 05/05/17 16:14 Nitroglycerin (Nitrostat Tab) 0.4 mg UD PRN SL 04/05/17 16:15 05/05/17 16:14 Insulin Glargine (Lantus Solostar Pen) SEE PROTOCOL TXT Q12 SC 04/05/17 21:00 05/05/17 20:59 04/07/17 08:24 15 UNITS Insulin Aspart (novoLOG ASPART) SLIDING SCALE If C... ACHS SC 04/05/17 16:00 05/05/17 15:59 04/07/17 17:08 9 UNITS Glucose (Glucose 40% Gel) 15-30 GRAMS 15 GRAMS... UD PRN PO 04/05/17 16:30 05/05/17 16:29 Glucose (Glucose Chew Tab) 4-8 Tablets 4 Tabl... UD PRN PO 04/05/17 16:30 05/05/17 16:29 Dextrose (Dextrose 50% 50ML Syringe) 25-50ML OF 50% DW IV FOR... UD PRN IV 04/05/17 16:30 05/05/17 16:29 Glucagon (Glucagon Inj) 1 mg UD PRN SQ 04/05/17 16:30 05/05/17 16:29 Miscellaneous Information (Consult Glycemic Management Pharmacy) 1 ea UD PRN N/A 04/05/17 17:05 05/05/17 17:04 Albuterol (Ventolin Hfa Inhaler) 2 puffs Q6H PRN INH 04/05/17 16:30 05/05/17 16:29 Allopurinol (Zyloprim Tab) 450 mg QAM PO 04/06/17 09:00 05/06/17 08:59 04/07/17 08:21 450 MG Cyclobenzaprine HCl (Flexeril Tab) 10 mg TID PRN PO 04/05/17 16:30 05/05/17 16:29 Doxycycline Hyclate (Vibramycin Cap) 100 mg BID PO 04/05/17 21:00 04/15/17 20:59 04/07/17 08:21 100 MG Gabapentin (Neurontin Cap) 300 mg TID PO 04/05/17 21:00 05/05/17 20:59 04/07/17 15:26 300 MG Acetaminophen/ Hydrocodone Bitart ([place] 5/325 Tab) 1 tab TID PRN PO 04/05/17 16:30 04/19/17 16:29 Isosorbide Mononitrate (Imdur Ext Rel Tab) 60 mg QAM PO 04/06/17 09:00 05/06/17 08:59 04/07/17 08:21 60 MG Metoprolol Tartrate (Lopressor Tab) 50 mg BID PO 04/05/17 21:00 05/05/17 20:59 04/07/17 08:22 50 MG Mirtazapine (Remeron Solutab) 15 mg HS PO 04/05/17 21:00 05/05/17 20:59 04/06/17 20:38 15 MG Prednisone (PredniSONE TAB) 5 mg DAILY PO 04/06/17 09:00 05/06/17 08:59 04/07/17 08:22 5 MG Rosuvastatin Calcium (Crestor Tab) 10 mg QPM PO 04/05/17 21:00 05/05/17 20:59 04/06/17 20:38 10 MG Pantoprazole Sodium (Protonix Tab) 40 mg BID PO 04/05/17 21:00 05/05/17 20:59 04/07/17 08:22 40 MG Furosemide 60 mg/ Syringe 6 ml @ 4 mls/min BID17 IV 04/06/17 09:00 05/06/17 08:59 04/07/17 17:07 4 MLS/MIN Potassium Chloride (Klor-Con Tab) 20 meq BID PO 04/07/17 11:00 05/07/17 10:59 04/07/17 11:43 20 MEQ
[2017-04-07] MEDS: ROSUVASTATIN CALCIUM 10 MG TAB PO SCH (20:55)
[2017-04-07] MEDS: MIRTAZAPINE SOLTAB 15 MG PO SCH (20:55)
[2017-04-08] VITALS (7 sets, daily range): BP systolic 107–130; BP diastolic 65–86; PULSE 62–77; TEMP 36.4–36.6; O2SAT 91–98
[2017-04-08 06:48] LABS: INR 2.1 (0.9-1.1)
[2017-04-08 07:24] LABS: CREATININE 1.86 mg/dl (0.60-1.40); POTASSIUM 3.4 mmol/L (3.5-5.1)
[2017-04-08] MEDS: METOPROLOL TARTRATE 50 MG TAB PO SCH ×2 (07:36→21:20)
[2017-04-08] MEDS: ISOSORBIDE MONONITRATE 60 MG TABCR PO SCH (07:36)
[2017-04-08] MEDS: GABAPENTIN 300 MG CAP PO SCH ×3 (07:36→21:20)
[2017-04-08] MEDS: ALLOPURINOL 300 MG TAB PO SCH (07:36)
[2017-04-08] MEDS: DOXYCYCLINE HYCLATE 100 MG CAP PO SCH ×2 (07:37→21:20)
[2017-04-08] MEDS: PANTOprazole SOD 40 MG TAB PO SCH ×2 (07:37→21:20)
[2017-04-08] MEDS: POTASSIUM CHLORIDE 20 MEQ TABCR PO SCH ×2 (07:37→21:20)
[2017-04-08] MEDS: FUROSEMIDE INJ 60 MG in SYRINGE 0 ML IV SCH ×2 (07:39→16:50)
[2017-04-08] MEDS: INSULIN ASPART 100 UNITS/ML 3 ML PEN SC SCH ×4 (07:41→21:00)
[2017-04-08] MEDS: INSULIN GLARGINE SOLOSTAR 100 UNITS/ML 3 ML PEN SC SCH ×2 (07:41→21:38)
--- NOTE | 2017-04-08 07:52 | Nephrology Progress Note ---
Nephrology Progress Note Date of Service: Apr 08, 2017. Subjective 81 yo male with yamel/volume overload/hx of recent cellulitis who is diuresing well, creatinine improving, breathing better. eating well. on fluid restriction. has aspiration precautions. using cpap overnight. Objective Date Time Temp Pulse Resp B/P (MAP) Pulse Ox O2 Delivery O2 Flow Rate FiO2 04/08/17 07:37 36.4 72 18 114/68 (83) 95 BiPAP 04/08/17 04:00 Room Air 04/08/17 03:45 36.5 62 19 114/70 (85) 95 CPAP 04/07/17 23:59 Room Air 04/07/17 23:43 36.7 71 18 107/79 (88) 93 CPAP 04/07/17 21:29 71 93 21 04/07/17 20:00 Room Air 04/07/17 19:29 37.0 68 22 131/67 (88) 94 Room Air 04/07/17 16:06 36.4 70 22 115/71 (86) 94 Room Air 04/07/17 16:00 Room Air 04/07/17 12:00 Room Air 04/07/17 11:50 36.6 69 18 126/72 (90) 93 Room Air 04/07/17 08:00 Room Air 04/07/17 07:57 36.4 70 18 115/61 (79) 93 Room Air Physical Exam: General-aaox3 Eyes-no scleral icterus ENT-mmm Neck-supple Lungs-decreased at bases Heart-irregularly irregular Abdomen-bs+/soft/nontender Extremities-+2 edema Neuro-nonfocal Current Inpatient Medications Medications (Trade) Dose Ordered Sig/Aileen Route Start Time Stop Time Status Last Admin Dose Admin Acetaminophen (Tylenol Tab) 650 mg Q4H PRN PO 04/05/17 16:15 05/05/17 16:14 Magnesium Hydroxide (Milk Of Magnesia Susp) 30 ml Q12H PRN PO 04/05/17 16:15 05/05/17 16:14 Nitroglycerin (Nitrostat Tab) 0.4 mg UD PRN SL 04/05/17 16:15 05/05/17 16:14 Insulin Glargine (Lantus Solostar Pen) SEE PROTOCOL TXT Q12 SC 04/05/17 21:00 05/05/17 20:59 04/07/17 20:58 20 UNITS Insulin Aspart (novoLOG ASPART) SLIDING SCALE If C... ACHS SC 04/05/17 16:00 05/05/17 15:59 04/07/17 20:58 7 UNITS Glucose (Glucose 40% Gel) 15-30 GRAMS 15 GRAMS... UD PRN PO 04/05/17 16:30 05/05/17 16:29 Glucose (Glucose Chew Tab) 4-8 Tablets 4 Tabl... UD PRN PO 04/05/17 16:30 05/05/17 16:29 Dextrose (Dextrose 50% 50ML Syringe) 25-50ML OF 50% DW IV FOR... UD PRN IV 04/05/17 16:30 05/05/17 16:29 Glucagon (Glucagon Inj) 1 mg UD PRN SQ 04/05/17 16:30 05/05/17 16:29 Miscellaneous Information (Consult Glycemic Management Pharmacy) 1 ea UD PRN N/A 04/05/17 17:05 05/05/17 17:04 Albuterol (Ventolin Hfa Inhaler) 2 puffs Q6H PRN INH 04/05/17 16:30 05/05/17 16:29 Allopurinol (Zyloprim Tab) 450 mg QAM PO 04/06/17 09:00 05/06/17 08:59 04/07/17 08:21 450 MG Cyclobenzaprine HCl (Flexeril Tab) 10 mg TID PRN PO 04/05/17 16:30 05/05/17 16:29 Doxycycline Hyclate (Vibramycin Cap) 100 mg BID PO 04/05/17 21:00 04/15/17 20:59 04/07/17 20:55 100 MG Gabapentin (Neurontin Cap) 300 mg TID PO 04/05/17 21:00 05/05/17 20:59 04/07/17 20:54 300 MG Acetaminophen/ Hydrocodone Bitart ([place] 5/325 Tab) 1 tab TID PRN PO 04/05/17 16:30 04/19/17 16:29 Isosorbide Mononitrate (Imdur Ext Rel Tab) 60 mg QAM PO 04/06/17 09:00 05/06/17 08:59 04/07/17 08:21 60 MG Metoprolol Tartrate (Lopressor Tab) 50 mg BID PO 04/05/17 21:00 05/05/17 20:59 04/07/17 20:54 50 MG Mirtazapine (Remeron Solutab) 15 mg HS PO 04/05/17 21:00 05/05/17 20:59 04/07/17 20:55 15 MG Prednisone (PredniSONE TAB) 5 mg DAILY PO 04/06/17 09:00 05/06/17 08:59 04/07/17 08:22 5 MG Rosuvastatin Calcium (Crestor Tab) 10 mg QPM PO 04/05/17 21:00 05/05/17 20:59 04/07/17 20:55 10 MG Pantoprazole Sodium (Protonix Tab) 40 mg BID PO 04/05/17 21:00 05/05/17 20:59 04/07/17 20:55 40 MG Furosemide 60 mg/ Syringe 6 ml @ 4 mls/min BID17 IV 04/06/17 09:00 05/06/17 08:59 04/07/17 17:07 4 MLS/MIN Potassium Chloride (Klor-Con Tab) 20 meq BID PO 04/07/17 11:00 05/07/17 10:59 04/07/17 20:55 20 MEQ Warfarin Sodium (Coumadin Tab) 3 mg DAILY@16 PO 04/08/17 16:00 05/08/17 15:59 Last 24 Hours Test 04/07/17 08:06 04/07/17 09:52 04/07/17 11:40 04/07/17 16:28 Prothrombin Time 27.1 SECONDS Prothromb Time International Ratio 2.6 Sodium Level 142 mmol/L Potassium Level 3.6 mmol/L Chloride Level 107 mmol/L Carbon Dioxide Level 27 mmol/L Anion Gap 8.0 mmol/L Blood Urea Nitrogen 64 mg/dl Creatinine 2.35 mg/dl Est Creatinine Clear Calc Drug Dose 38.9 ml/min Estimated GFR () 29.0 Estimated GFR (Non- 25.0 BUN/Creatinine Ratio 27.4 Random Glucose 140 mg/dl Calcium Level 9.1 mg/dl Magnesium Level 2.5 mg/dl Urine Color YELLOW Urine Appearance CLEAR Urine pH 5.0 Urine Specific [place] 1.011 Urine Protein NEG Urine Glucose (UA) NEG Urine Ketones NEG Urine Occult Blood NEG Urine Nitrite NEG Urine Bilirubin NEG Urine Urobilinogen NEG Urine Leukocyte Esterase NEG Urine WBC (Auto) 1-5 /hpf Urine RBC (Auto) 0-4 /hpf Urine Hyaline Casts (Auto) 1-5 /lpf Urine Epithelial Cells (Auto) 0-5 /lpf Urine Bacteria (Auto) NEG Bedside Glucose 139 mg/dl 172 mg/dl Test 04/07/17 20:09 04/08/17 06:27 04/08/17 07:14 Bedside Glucose 244 mg/dl 131 mg/dl Prothrombin Time 22.1 SECONDS Prothromb Time International Ratio 2.1 Sodium Level 144 mmol/L Potassium Level 3.4 mmol/L Chloride Level 109 mmol/L Carbon Dioxide Level 25 mmol/L Anion Gap 10.0 mmol/L Blood Urea Nitrogen 59 mg/dl Creatinine 1.86 mg/dl Est Creatinine Clear Calc Drug Dose 48.7 ml/min Estimated GFR () 38.5 Estimated GFR (Non- 33.2 BUN/Creatinine Ratio 31.8 Random Glucose 115 mg/dl Calcium Level 9.0 mg/dl Magnesium Level 2.5 mg/dl Assessment & Plan YAMEL on ckd-creatinine improving today. continue to diurese on current dose of diuretics and giving k supplement to help keep potassium levels stable. pt clinically improving. would benefit from continued iv diuresis. no changes to plan of care today.
--- NOTE | 2017-04-08 10:23 | Pharmacy Progress Note ---
Pharmacy Glycemic Short Note 2 Date of Service Apr 08, 2017. OUTPATIENT ANTIDIABETIC REGIMEN: * Novolog 70/30 - take 55 units in AM and 45 units in PM (total daily dose of 100 units daily) ASSESSMENT: * Mr Macedo is an 81 y/o M with a PMH of Afib, CAD, gout, GERD, HTN, SHAUNA, and reasonably well controlled type 2 diabetes (goal for this patient is 7.6-8.0% according to Elements of Diabetes Scoring) He presented to the hospital this time with an acute exacerbation of his HF. Patient initially had an YAMEL with lower blood sugars (as seen with June 2016 admission). Lantus has since been slowly increased back to typical dose around 23 units twice daily and Novolog tightened. * Yesterday, patient received 73 units of insulin (35 units of basal) and blood sugars ranged from 136-244 mg/dL. Blood sugars climbed throughout the day. Fasting this morning was 131 mg/dL which is similar to 04/07/17. Lowered break for Lantus so patient receives 20 units of Lantus if blood sugar is greater than 140 mg/dL. Predict return to Lantus 23 units twice daily shortly. * Novolog tightened to ratio used in previous hospitalization. PLAN FOR INPATIENT GLYCEMIC CONTROL: * Basal insulin * Lantus 15-20 units SQ BID (Lantus 15 units if blood sugar less than 140 mg/dL ) * Bolus insulin * NovoLog per scale ACHS or Q6hrs while NPO * Goal Range: Low 110 mg/dL - High 140 mg/dL * Correction Factor: 12 mg/dL/unit * Nutritional / Prandial insulin per carb ratio of 1 unit per 4 grams CHO consumed PLAN FOR DISCHARGE: * Mr Macedo's HbA1C is well controlled. As long as patient is not having hypoglycemia as an outpatient, it is reasonable to continue home regimen.
--- NOTE | 2017-04-08 15:30 | Cardiology Follow-Up ---
Subjective General Date of Service: Apr 08, 2017. Chief Complaint: edema Pt evaluation today including: conversation w/ patient, physical exam History of Present Illness The patient is a 81 year old male seen in cardiology follow up. The patient describes feeling comfortable. 2.9 L of urine output was noted yesterday. His creatinine has trended down from 2.45 on admission to 1.86 today. Allergies Coded Allergies: NO KNOWN DRUG ALLERGIES (Verified Allergy, Unknown, ., 04/05/17) Social History Hx Tobacco Use In Past Year?: No Hx Alcohol Use - Type And Amou: No Hx Substance Use - Type And Am: No Problem List Medical Problems: (1) A-fib Status: Acute (2) Abnormal ECG Status: Acute (3) Acute electrocardiogram changes Status: Acute (4) Acute electrocardiogram changes Status: Acute (5) Acute kidney injury Status: Acute (6) Acute renal failure Status: Acute (7) Anemia Status: Acute (8) Atrial fibrillation with RVR Status: Acute (9) CHF (congestive heart failure) Status: Acute (10) CHF (congestive heart failure) Status: Acute (11) Dysphagia Status: Acute (12) Edema Status: Acute (13) Elevated troponin Status: Acute (14) Hyperglycemia Status: Acute (15) Hypoglycemia Status: Acute (16) Hypoglycemia Status: Acute (17) Hypoglycemia Status: Acute (18) Hypoxia Status: Acute (19) Insulin dependent diabetes mellitus Status: Acute (20) Jaw pain Status: Acute (21) NSTEMI (non-ST elevated myocardial infarction) Status: Acute (22) Right leg pain Status: Acute (23) Shortness of breath Status: Acute (24) Supratherapeutic INR Status: Acute Physical Exam Vital Signs Last Vital Signs Documentation Date Time Temp Pulse Resp B/P (MAP) Pulse Ox O2 Delivery O2 Flow Rate FiO2 04/08/17 15:19 36.5 77 16 107/68 (81) 91 Room Air 04/07/17 21:29 21 04/05/17 22:14 2.0 Physical Exam Constitutional: General Apperance: obese Level of Distress: mild distress Psychiatric: Mental Status: active & alert Orientation: to time, to place, to person Memory: recent memory normal, remote memory normal Head: normocephalic, atraumatic Eyes: Pupils: PERRLA Neck: pertinent finding (No overt JVD observed. Note: Patient examined in a chair) Lungs: Auscultation: no wheezing, no rhonchi, deminished air movement, decreased breath sounds, rales/crackles on the right Cardiovascular: Heart Auscultation: no murmurs, no rubs, irregular rate rhythm Peripheral Pulses: Radial Pulse: normal on the left, normal on the right Dorsalis Pedis Pulse: absent on the left, absent on the right Abdomen: Bowel Sounds: normal Inspection & Palpation: distended Extremities: no cyanosis, edema (considerable edema into the upper thighs), ulcers Neurologic: Cranial Nerves: grossly intact Assessment and Plan Assessment and Plan Impression: 81-year-old male Acute on chronic right greater than left biventricular congestive heart failure signs and symptoms Chronic ischemic cardio myopathy, LVEF 30-35% most recent echocardiogram in 2017 Chronic kidney disease Chronic rate controlled atrial fibrillation on telemetry, occasional PVC Plan: Continue current dose of furosemide 60 mg IV twice daily Nephrology input noted and appreciated Continue Coumadin, INR is at goal at 2.1. Laboratory Results Last 24 Hours Test 04/07/17 16:28 04/07/17 20:09 04/08/17 06:27 04/08/17 07:14 Bedside Glucose 172 mg/dl 244 mg/dl 131 mg/dl Prothrombin Time 22.1 SECONDS Prothromb Time International Ratio 2.1 Sodium Level 144 mmol/L Potassium Level 3.4 mmol/L Chloride Level 109 mmol/L Carbon Dioxide Level 25 mmol/L Anion Gap 10.0 mmol/L Blood Urea Nitrogen 59 mg/dl Creatinine 1.86 mg/dl Est Creatinine Clear Calc Drug Dose 48.7 ml/min Estimated GFR () 38.5 Estimated GFR (Non- 33.2 BUN/Creatinine Ratio 31.8 Random Glucose 115 mg/dl Calcium Level 9.0 mg/dl Magnesium Level 2.5 mg/dl Test 04/08/17 11:11 Bedside Glucose 153 mg/dl
[2017-04-08] MEDS: WARFARIN SOD 3 MG TAB PO SCH (16:50)
[2017-04-08] MEDS ORDERED: POTASSIUM CHLORIDE 10 MEQ TABCR PO ONE (18:15)
[2017-04-08] MEDS: ROSUVASTATIN CALCIUM 10 MG TAB PO SCH (21:20)
[2017-04-08] MEDS: MIRTAZAPINE SOLTAB 15 MG PO SCH (21:20)
[2017-04-09] VITALS (8 sets, daily range): BP systolic 111–134; BP diastolic 62–93; PULSE 63–80; TEMP 36.4–36.9; O2SAT 92–98
--- NOTE | 2017-04-09 05:30 | Progress Note ---
Medicine Progress Note Date & Time of Visit: Apr 09, 2017 at 05:25. Subjective sitting up in chair, comfortable, watching tv states he feels fine denies dyspnea, chest pain no problems with eating today no other symptoms Objective Last 8 Hrs Date Time Temp Pulse Resp B/P (MAP) Pulse Ox O2 Delivery O2 Flow Rate FiO2 04/09/17 04:23 36.5 79 20 134/93 (107) 96 BiPAP 04/09/17 04:00 CPAP 2.0 04/09/17 00:00 CPAP 2.0 04/08/17 23:30 36.5 74 20 130/86 (101) 94 BiPAP 04/08/17 22:40 77 98 2.0 Physical Exam: General- oriented x 3, not in distress Eyes- anicteric Neck- no JVD Lungs- clear breath sounds bilaterally, no wheezing, no rales Heart- regular rhythm; no murmur, normal rate Abdomen- normal bowel sounds, soft, nontender Extremities- lower legs with heavy dressing/wrap in place, no calf tenderness Neuro- alert, oriented x 3; no gross focal deficits Skin- warm & dry Laboratory Results: Last 24 Hours Test 04/08/17 06:27 04/08/17 07:14 04/08/17 11:11 04/08/17 15:48 Prothrombin Time 22.1 SECONDS Prothromb Time International Ratio 2.1 Sodium Level 144 mmol/L Potassium Level 3.4 mmol/L Chloride Level 109 mmol/L Carbon Dioxide Level 25 mmol/L Anion Gap 10.0 mmol/L Blood Urea Nitrogen 59 mg/dl Creatinine 1.86 mg/dl Est Creatinine Clear Calc Drug Dose 48.7 ml/min Estimated GFR () 38.5 Estimated GFR (Non- 33.2 BUN/Creatinine Ratio 31.8 Random Glucose 115 mg/dl Calcium Level 9.0 mg/dl Magnesium Level 2.5 mg/dl Bedside Glucose 131 mg/dl 153 mg/dl 134 mg/dl Test 04/08/17 20:31 04/09/17 04:44 Bedside Glucose 131 mg/dl Assessment & Plan 81 year old male with history of Ischemic Cardiomyopathy, CAD, Atrial Fibrillation on Coumadin, DM 2, HTN, CKD 3... ACUTE ON CHRONIC SYSTOLIC HEART FAILURE ISCHEMIC CARDIOMYOPATHY - echo 12/30: EF: 30-35%. No CP - Cardiology and Nephrology on board Lasix 60mg IV BID diuresing well -continue beta leah, isosorbide, statin holding lisinopril at this time with YAMEL YAMEL on CKD III Cr: 2.4. baseline high 1's - crea 2.3--> 1.86 -hold lisinopril at this time Nephrology on board A-FIB on CHRONIC COUMADIN rate controlled at this time. INR: 2.1 - coumadin 3mg po daily -continue beta leah DYSPHAGIA - s/p VF Swallow test: (+) significant esophageal dysmotility - diet modified - consulted GI INSULIN DEPENDENT DM II Pt reports BS varying. Reports low in 30's today increased to 90 with orange juice. HA1c on 03/25/17 was 7.9 -hold home 70/30 -basal and Novolog sliding scale -glycemic consult CELLULITIS D/C from hospital on 03/29/17 for BLE cellulitis. +MRSA. Follows with ID and wound clinic. No fever/chills, no increased erythema -continue doxycycline -wound consult SHAUNA -CPAP HS DVT Prophylaxis -On coumadin Disposition admit tele Full Code as per discussion with pt Follows with Dr Ryder for routine care Current Inpatient Medications: Current Inpatient Medications Medications (Trade) Dose Ordered Sig/Aileen Route Start Time Stop Time Status Last Admin Dose Admin Acetaminophen (Tylenol Tab) 650 mg Q4H PRN PO 04/05/17 16:15 05/05/17 16:14 Magnesium Hydroxide (Milk Of Magnesia Susp) 30 ml Q12H PRN PO 04/05/17 16:15 05/05/17 16:14 Nitroglycerin (Nitrostat Tab) 0.4 mg UD PRN SL 04/05/17 16:15 05/05/17 16:14 Insulin Glargine (Lantus Solostar Pen) SEE PROTOCOL TXT Q12 SC 04/05/17 21:00 05/05/17 20:59 04/08/17 21:38 15 UNITS Insulin Aspart (novoLOG ASPART) SLIDING SCALE If C... ACHS SC 04/05/17 16:00 05/05/17 15:59 04/08/17 16:53 18 UNITS Glucose (Glucose 40% Gel) 15-30 GRAMS 15 GRAMS... UD PRN PO 04/05/17 16:30 05/05/17 16:29 Glucose (Glucose Chew Tab) 4-8 Tablets 4 Tabl... UD PRN PO 04/05/17 16:30 05/05/17 16:29 Dextrose (Dextrose 50% 50ML Syringe) 25-50ML OF 50% DW IV FOR... UD PRN IV 04/05/17 16:30 05/05/17 16:29 Glucagon (Glucagon Inj) 1 mg UD PRN SQ 04/05/17 16:30 05/05/17 16:29 Miscellaneous Information (Consult Glycemic Management Pharmacy) 1 ea UD PRN N/A 04/05/17 17:05 05/05/17 17:04 Albuterol (Ventolin Hfa Inhaler) 2 puffs Q6H PRN INH 04/05/17 16:30 05/05/17 16:29 Allopurinol (Zyloprim Tab) 450 mg QAM PO 04/06/17 09:00 05/06/17 08:59 04/08/17 07:36 450 MG Cyclobenzaprine HCl (Flexeril Tab) 10 mg TID PRN PO 04/05/17 16:30 05/05/17 16:29 Doxycycline Hyclate (Vibramycin Cap) 100 mg BID PO 04/05/17 21:00 04/15/17 20:59 04/08/17 21:20 100 MG Gabapentin (Neurontin Cap) 300 mg TID PO 04/05/17 21:00 05/05/17 20:59 04/08/17 21:20 300 MG Acetaminophen/ Hydrocodone Bitart ([place] 5/325 Tab) 1 tab TID PRN PO 04/05/17 16:30 04/19/17 16:29 04/08/17 23:24 1 TAB Isosorbide Mononitrate (Imdur Ext Rel Tab) 60 mg QAM PO 04/06/17 09:00 05/06/17 08:59 04/08/17 07:36 60 MG Metoprolol Tartrate (Lopressor Tab) 50 mg BID PO 04/05/17 21:00 05/05/17 20:59 04/08/17 21:20 50 MG Mirtazapine (Remeron Solutab) 15 mg HS PO 04/05/17 21:00 05/05/17 20:59 2/24/18 21:20 15 MG Prednisone (PredniSONE TAB) 5 mg DAILY PO 04/06/17 09:00 05/06/17 08:59 04/08/17 07:37 5 MG Rosuvastatin Calcium (Crestor Tab) 10 mg QPM PO 04/05/17 21:00 05/05/17 20:59 04/08/17 21:20 10 MG Pantoprazole Sodium (Protonix Tab) 40 mg BID PO 04/05/17 21:00 05/05/17 20:59 04/08/17 21:20 40 MG Furosemide 60 mg/ Syringe 6 ml @ 4 mls/min BID17 IV 04/06/17 09:00 05/06/17 08:59 04/08/17 16:50 4 MLS/MIN Potassium Chloride (Klor-Con Tab) 20 meq BID PO 04/07/17 11:00 05/07/17 10:59 04/08/17 21:20 20 MEQ Warfarin Sodium (Coumadin Tab) 3 mg DAILY@16 PO 04/08/17 16:00 05/08/17 15:59 04/08/17 16:50 3 MG
[2017-04-09] MEDS: FUROSEMIDE INJ 60 MG in SYRINGE 0 ML IV SCH ×2 (08:24→16:55)
[2017-04-09] MEDS: METOPROLOL TARTRATE 50 MG TAB PO SCH ×2 (08:24→19:11)
[2017-04-09] MEDS: ALLOPURINOL 300 MG TAB PO SCH (08:25)
[2017-04-09] MEDS: PANTOprazole SOD 40 MG TAB PO SCH ×2 (08:25→19:09)
[2017-04-09] MEDS: GABAPENTIN 300 MG CAP PO SCH ×3 (08:25→19:09)
[2017-04-09] MEDS: ISOSORBIDE MONONITRATE 60 MG TABCR PO SCH (08:26)
[2017-04-09] MEDS: POTASSIUM CHLORIDE 20 MEQ TABCR PO SCH ×2 (08:26→19:10)
[2017-04-09] MEDS: INSULIN ASPART 100 UNITS/ML 3 ML PEN SC SCH ×4 (08:32→20:54)
[2017-04-09] MEDS: INSULIN GLARGINE SOLOSTAR 100 UNITS/ML 3 ML PEN SC SCH ×2 (08:33→20:54)
[2017-04-09] MEDS: DOXYCYCLINE HYCLATE 100 MG CAP PO SCH ×2 (08:33→19:09)
--- NOTE | 2017-04-09 10:47 | Cardiology Follow-Up ---
Subjective General Date of Service: Apr 09, 2017. Chief Complaint: edema Pt evaluation today including: conversation w/ patient, physical exam History of Present Illness The patient is a 81 year old male seen in follow up. Stable AF on telemetry, rate controlled. 3 L of urine output yesterday. Allergies Coded Allergies: NO KNOWN DRUG ALLERGIES (Verified Allergy, Unknown, ., 04/05/17) Social History Hx Tobacco Use In Past Year?: No Hx Alcohol Use - Type And Amou: No Hx Substance Use - Type And Am: No Problem List Medical Problems: (1) A-fib Status: Acute (2) Abnormal ECG Status: Acute (3) Acute electrocardiogram changes Status: Acute (4) Acute electrocardiogram changes Status: Acute (5) Acute kidney injury Status: Acute (6) Acute renal failure Status: Acute (7) Anemia Status: Acute (8) Atrial fibrillation with RVR Status: Acute (9) CHF (congestive heart failure) Status: Acute (10) CHF (congestive heart failure) Status: Acute (11) Dysphagia Status: Acute (12) Edema Status: Acute (13) Elevated troponin Status: Acute (14) Hyperglycemia Status: Acute (15) Hypoglycemia Status: Acute (16) Hypoglycemia Status: Acute (17) Hypoglycemia Status: Acute (18) Hypoxia Status: Acute (19) Insulin dependent diabetes mellitus Status: Acute (20) Jaw pain Status: Acute (21) NSTEMI (non-ST elevated myocardial infarction) Status: Acute (22) Right leg pain Status: Acute (23) Shortness of breath Status: Acute (24) Supratherapeutic INR Status: Acute Physical Exam Vital Signs Last Vital Signs Documentation Date Time Temp Pulse Resp B/P (MAP) Pulse Ox O2 Delivery O2 Flow Rate FiO2 04/09/17 09:30 72 96 04/09/17 08:00 Room Air 04/09/17 07:32 36.5 18 114/63 (80) 04/09/17 04:00 2.0 04/07/17 21:29 21 Physical Exam Constitutional: General Apperance: obese Level of Distress: mild distress Psychiatric: Mental Status: active & alert Orientation: to time, to place, to person Memory: recent memory normal, remote memory normal Head: normocephalic, atraumatic Eyes: Pupils: PERRLA Neck: pertinent finding (No overt JVD observed. Note: Patient examined in a chair) Lungs: Auscultation: no wheezing, no rhonchi, deminished air movement, decreased breath sounds, rales/crackles on the right Cardiovascular: Heart Auscultation: no murmurs, no rubs, irregular rate rhythm Peripheral Pulses: Radial Pulse: normal on the left, normal on the right Dorsalis Pedis Pulse: absent on the left, absent on the right Abdomen: Bowel Sounds: normal Inspection & Palpation: distended Extremities: no cyanosis, edema (considerable edema into the upper thighs), ulcers Neurologic: Cranial Nerves: grossly intact Assessment and Plan Assessment and Plan Impression: 81-year-old male 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 Continue Coumadin, INR is at goal at 2 Laboratory Results Last 24 Hours Test 04/08/17 11:11 04/08/17 15:48 04/08/17 20:31 04/09/17 04:44 Bedside Glucose 153 mg/dl 134 mg/dl 131 mg/dl Test 04/09/17 06:10 04/09/17 06:58 Prothrombin Time 20.6 SECONDS Prothromb Time International Ratio 2.0 Bedside Glucose 113 mg/dl
[2017-04-09 11:05] LABS: CALCIUM 8.9 mg/dl (8.5-10.1); CREATININE 1.73 mg/dl (0.60-1.40); POTASSIUM 3.8 mmol/L (3.5-5.1)
[2017-04-09] MEDS: WARFARIN SOD 3 MG TAB PO SCH (16:54)
[2017-04-09] MEDS ORDERED: WARFARIN SOD 2 MG TAB PO ONE (19:00)
[2017-04-09] MEDS: MIRTAZAPINE SOLTAB 15 MG PO SCH (19:10)
[2017-04-09] MEDS: ROSUVASTATIN CALCIUM 10 MG TAB PO SCH (19:11)
[2017-04-10] VITALS (8 sets, daily range): BP systolic 110–133; BP diastolic 64–81; PULSE 62–72; TEMP 36.2–36.9; O2SAT 93–96
--- NOTE | 2017-04-10 05:49 | Progress Note ---
Medicine Progress Note Date & Time of Visit: Apr 10, 2017 at 05:47. Subjective delayed entry date of service 04/09/17 resting in chair, watching tv comfortable states breathing is fine tolerating diet well no other symptoms Objective Last 8 Hrs Date Time Temp Pulse Resp B/P (MAP) Pulse Ox O2 Delivery O2 Flow Rate FiO2 04/10/17 04:00 CPAP 04/10/17 03:33 36.4 68 17 110/66 (81) 93 CPAP 04/09/17 23:59 CPAP 04/09/17 23:43 36.4 74 25 111/79 (90) 93 CPAP 04/09/17 22:51 80 98 2.0 Physical Exam: General- oriented x 3, not in distress Neck- no JVD Lungs- clear BS BL Heart- regular rhythm; no murmur, normal rate Abdomen- normal bowel sounds, soft, nontender Extremities- lower legs with heavy dressing/wrap in place, no calf tenderness Neuro- alert, oriented x 3; no gross focal deficits Skin- warm & dry Laboratory Results: Last 24 Hours Test 04/09/17 06:10 04/09/17 06:11 04/09/17 06:58 04/09/17 11:08 Prothrombin Time 20.6 SECONDS Prothromb Time International Ratio 2.0 Sodium Level 146 mmol/L Potassium Level 3.8 mmol/L Chloride Level 110 mmol/L Carbon Dioxide Level 29 mmol/L Anion Gap 7.0 mmol/L Blood Urea Nitrogen 48 mg/dl Creatinine 1.73 mg/dl Est Creatinine Clear Calc Drug Dose 52.2 ml/min Estimated GFR () 42.0 Estimated GFR (Non- 36.2 BUN/Creatinine Ratio 27.8 Random Glucose 107 mg/dl Calcium Level 8.9 mg/dl Magnesium Level 2.2 mg/dl Bedside Glucose 113 mg/dl 154 mg/dl Test 04/09/17 15:49 04/09/17 20:14 04/10/17 04:44 Bedside Glucose 129 mg/dl 167 mg/dl Assessment & Plan 81 year old male with history of Ischemic Cardiomyopathy, CAD, Atrial Fibrillation on Coumadin, DM 2, HTN, CKD 3... ACUTE ON CHRONIC SYSTOLIC HEART FAILURE ISCHEMIC CARDIOMYOPATHY - echo 12/30: EF: 30-35%. No CP - Cardiology and Nephrology on board Lasix 60mg IV BID diuresing well crea improving -continue beta leah, isosorbide, statin holding lisinopril at this time with YAMEL YAMEL on CKD III Cr: 2.4. baseline high 1's - crea 2.3--> 1.86--> 1.7 -hold lisinopril at this time Nephrology on board A-FIB on CHRONIC COUMADIN rate controlled at this time. INR: 2.0 - coumadin 4mg po daily -continue beta leah DYSPHAGIA - s/p VF Swallow test: (+) significant esophageal dysmotility - diet modified - consulted GI INSULIN DEPENDENT DM II Pt reports BS varying. Reports low in 30's today increased to 90 with orange juice. HA1c on 03/25/17 was 7.9 -hold home 70/30 -basal and Novolog sliding scale -glycemic consult CELLULITIS D/C from hospital on 03/29/17 for BLE cellulitis. +MRSA. Follows with ID and wound clinic. No fever/chills, no increased erythema -continue doxycycline -wound consult SHAUNA -CPAP HS DVT Prophylaxis -On coumadin Disposition admit tele Full Code as per discussion with pt Follows with Dr Ryder for routine care Current Inpatient Medications: Current Inpatient Medications Medications (Trade) Dose Ordered Sig/Aileen Route Start Time Stop Time Status Last Admin Dose Admin Acetaminophen (Tylenol Tab) 650 mg Q4H PRN PO 04/05/17 16:15 05/05/17 16:14 Magnesium Hydroxide (Milk Of Magnesia Susp) 30 ml Q12H PRN PO 04/05/17 16:15 05/05/17 16:14 Nitroglycerin (Nitrostat Tab) 0.4 mg UD PRN SL 04/05/17 16:15 05/05/17 16:14 Insulin Glargine (Lantus Solostar Pen) SEE PROTOCOL TXT Q12 SC 04/05/17 21:00 05/05/17 20:59 04/09/17 20:54 20 UNITS Insulin Aspart (novoLOG ASPART) SLIDING SCALE If C... ACHS SC 04/05/17 16:00 05/05/17 15:59 04/09/17 20:54 3 UNITS Glucose (Glucose 40% Gel) 15-30 GRAMS 15 GRAMS... UD PRN PO 04/05/17 16:30 05/05/17 16:29 Glucose (Glucose Chew Tab) 4-8 Tablets 4 Tabl... UD PRN PO 04/05/17 16:30 05/05/17 16:29 Dextrose (Dextrose 50% 50ML Syringe) 25-50ML OF 50% DW IV FOR... UD PRN IV 04/05/17 16:30 05/05/17 16:29 Glucagon (Glucagon Inj) 1 mg UD PRN SQ 04/05/17 16:30 05/05/17 16:29 Miscellaneous Information (Consult Glycemic Management Pharmacy) 1 ea UD PRN N/A 04/05/17 17:05 05/05/17 17:04 Albuterol (Ventolin Hfa Inhaler) 2 puffs Q6H PRN INH 04/05/17 16:30 05/05/17 16:29 Allopurinol (Zyloprim Tab) 450 mg QAM PO 04/06/17 09:00 05/06/17 08:59 04/09/17 08:25 450 MG Cyclobenzaprine HCl (Flexeril Tab) 10 mg TID PRN PO 04/05/17 16:30 05/05/17 16:29 Doxycycline Hyclate (Vibramycin Cap) 100 mg BID PO 04/05/17 21:00 04/15/17 20:59 04/09/17 19:09 100 MG Gabapentin (Neurontin Cap) 300 mg TID PO 04/05/17 21:00 05/05/17 20:59 04/09/17 19:09 300 MG Acetaminophen/ Hydrocodone Bitart (Eldena 5/325 Tab) 1 tab TID PRN PO 04/05/17 16:30 04/19/17 16:29 04/08/17 23:24 1 TAB Isosorbide Mononitrate (Imdur Ext Rel Tab) 60 mg QAM PO 04/06/17 09:00 05/06/17 08:59 04/09/17 08:26 60 MG Metoprolol Tartrate (Lopressor Tab) 50 mg BID PO 04/05/17 21:00 05/05/17 20:59 04/09/17 19:11 50 MG Mirtazapine (Remeron Solutab) 15 mg HS PO 04/05/17 21:00 05/05/17 20:59 04/09/17 19:10 15 MG Prednisone (PredniSONE TAB) 5 mg DAILY PO 04/06/17 09:00 05/06/17 08:59 04/09/17 08:25 5 MG Rosuvastatin Calcium (Crestor Tab) 10 mg QPM PO 04/05/17 21:00 05/05/17 20:59 04/09/17 19:11 10 MG Pantoprazole Sodium (Protonix Tab) 40 mg BID PO 04/05/17 21:00 05/05/17 20:59 04/09/17 19:09 40 MG Furosemide 60 mg/ Syringe 6 ml @ 4 mls/min BID17 IV 04/06/17 09:00 05/06/17 08:59 04/09/17 16:55 4 MLS/MIN Potassium Chloride (Klor-Con Tab) 20 meq BID PO 04/07/17 11:00 05/07/17 10:59 04/09/17 19:10 20 MEQ Warfarin Sodium (Coumadin Tab) 5 mg DAILY@16 PO 04/10/17 16:00 05/08/17 15:59
[2017-04-10 07:48] LABS: INR 1.7 (0.9-1.1)
[2017-04-10] MEDS: GABAPENTIN 300 MG CAP PO SCH ×3 (08:04→20:35)
[2017-04-10] MEDS: DOXYCYCLINE HYCLATE 100 MG CAP PO SCH ×2 (08:05→20:36)
[2017-04-10] MEDS: METOPROLOL TARTRATE 50 MG TAB PO SCH ×2 (08:05→20:35)
[2017-04-10] MEDS: POTASSIUM CHLORIDE 20 MEQ TABCR PO SCH ×2 (08:05→20:35)
[2017-04-10] MEDS: ISOSORBIDE MONONITRATE 60 MG TABCR PO SCH (08:05)
[2017-04-10] MEDS: ALLOPURINOL 300 MG TAB PO SCH (08:05)
[2017-04-10] MEDS: PANTOprazole SOD 40 MG TAB PO SCH ×2 (08:06→20:36)
[2017-04-10] MEDS: FUROSEMIDE INJ 60 MG in SYRINGE 0 ML IV SCH ×2 (08:06→17:27)
[2017-04-10] MEDS: INSULIN ASPART 100 UNITS/ML 3 ML PEN SC SCH ×4 (08:07→20:40)
[2017-04-10] MEDS: INSULIN GLARGINE SOLOSTAR 100 UNITS/ML 3 ML PEN SC SCH ×2 (08:09→20:45)
[2017-04-10 08:13] LABS: CREATININE 1.74 mg/dl (0.60-1.40); POTASSIUM 3.7 mmol/L (3.5-5.1)
--- NOTE | 2017-04-10 10:07 | Pharmacy Progress Note ---
Pharmacy Glycemic Short Note 2 Date of Service Apr 10, 2017. OUTPATIENT ANTIDIABETIC REGIMEN: * Novolog 70/30 - take 55 units in AM and 45 units in PM (total daily dose of 100 units daily) ASSESSMENT: * Yesterday, Mr Macedo's blood sugars were [phone] mg/dL and he received about 89 units of insulin (35 units of basal). This morning's fasting blood sguar was 102 mg/dL. * Based upon the fasting blood sugars, it appears that 30 units provides a fasting of 113 mg/dL and 35 units provided a fasting of 102 mg/dL. Will schedule Lantus 16 units twice daily starting tonight (total dose of 32 units) to provide stability in dosing. * For Novolog, the patient's blood sugars throughout the day stayed relatively stable. Will continue current regimen. * Mr Macedo is an 81 y/o M with a PMH of Afib, CAD, gout, GERD, HTN, SHAUNA, and reasonably well controlled type 2 diabetes (goal for this patient is 7.6-8.0% according to Elements of Diabetes Scoring) He presented to the hospital this time with an acute exacerbation of his HF. Patient initially had an YAMEL with lower blood sugars (as seen with June 2016 admission). Lantus has since been slowly increased back to typical dose around 23 units twice daily and Novolog tightened. PLAN FOR INPATIENT GLYCEMIC CONTROL: * Basal insulin * Lantus 15 SQ this morning and then 16 units SQ BID starting tonight. * Bolus insulin * NovoLog per scale ACHS or Q6hrs while NPO * Goal Range: Low 110 mg/dL - High 140 mg/dL * Correction Factor: 12 mg/dL/unit * Nutritional / Prandial insulin per carb ratio of 1 unit per 4 grams CHO consumed PLAN FOR DISCHARGE: * Mr Macedo's HbA1C is well controlled. As long as patient is not having hypoglycemia as an outpatient, it is reasonable to continue home regimen.
--- NOTE | 2017-04-10 10:44 | Gastrointestinal Consultation ---
Gastrointestinal Consultation Date of Consultation: Apr 10, 2017 Attending Physician: An Consulting Physician: Sheryl Reason for Consultation: esophageal dysmotility History of Present Illness Patient is a 81 year old male, PMH significant for chronic systolic heart failure secondary to ischemic cardiomyopathy (EF 40%), HTN, CAD s/p CABG, CKD, T2DM, anemia who was admitted for SOB, acute on chronic CHF - GI is consulted for esophageal dysmotility, dysphagia. Pt was seen and evaluated, chart reviewed. He notes dysphagia x years. Has had EGD w/ dilation for the past for his symptoms w/ minimal relief of his symptoms. Was re-evaluated by speech who notes severe esophageal dysmotility. Pt notes dysphagia to both solids and liquids. Notes nearly every time he swallows, feels substance stick, minutes later this will either drop or he will regurgitate. No S/S of acid reflux. No epigastric burning. His SOB is improving, but not back to baseline. No fever, chills, CP. RANGE MASTER 04/07/17: This patient presents with mild oral-pharyngeal dysphagia and SIGNIFICANT s/s esophageal dysfunction. This replicates the results of the VFSS completed in 2016. The following is recommended: 1.SLIPPERY DIET with thin liquids via cup--NO STRAWS Colonoscopy 2013: One 4 mm polyp in the ascending colon. Resected and retrieved. One 12 mm polyp at the hepatic flexure. Resected and retrieved. One 2 mm polyp in the sigmoid colon. Resected and retrieved. Diverticulosis from sigmoid to descending colon. Otherwise normal to the terminal ileum, with retroflexed views of the ascending colon and rectum. Repeat in 3 years for surveillance EGD 2016: No endoscopic esophageal abnormality to explain patient's dysphagia. Esophagus dilated. Dilated. Normal upper third of esophagus, middle third of esophagus and lower third of esophagus. Z-line regular, 45 cm from the incisors. There was no visual evidence of Faria's esophagus. Biopsied. Small hiatus hernia. Normal stomach. Normal examined duodenum. Past Medical/Surgical History Medical Problems: (1) A-fib Status: Acute (2) Abnormal ECG Status: Acute (3) Acute electrocardiogram changes Status: Acute (4) Acute electrocardiogram changes Status: Acute (5) Acute kidney injury Status: Acute (6) Acute renal failure Status: Acute (7) Anemia Status: Acute (8) Atrial fibrillation with RVR Status: Acute (9) CHF (congestive heart failure) Status: Acute (10) CHF (congestive heart failure) Status: Acute (11) Dysphagia Status: Acute (12) Edema Status: Acute (13) Elevated troponin Status: Acute (14) Hyperglycemia Status: Acute (15) Hypoglycemia Status: Acute (16) Hypoglycemia Status: Acute (17) Hypoglycemia Status: Acute (18) Hypoxia Status: Acute (19) Insulin dependent diabetes mellitus Status: Acute (20) Jaw pain Status: Acute (21) NSTEMI (non-ST elevated myocardial infarction) Status: Acute (22) Right leg pain Status: Acute (23) Shortness of breath Status: Acute (24) Supratherapeutic INR Status: Acute Past Medical History: Barretts, CHF, dysphagia, edema, hypoglycemia, T2DM, dyslipidemia, neuropathy, nephropathy, gastroparesis, CAD w/ CABG x5, afib on coumadin, hx of PE, SHAUNA, hx of colonic polyps Past Surgical History: Knee replacement, CABG x5m, EGD, Colonoscopy Family History Diabetes mellitus FH: cancer Social History Housing Status: lives alone Allergies Coded Allergies: NO KNOWN DRUG ALLERGIES (Verified Allergy, Unknown, ., 04/05/17) Current Medications Home Meds and Scripts Medications Dose Route/Sig Max Daily Dose Days Date Category Dose Instructions Coumadin (Warfarin Sod) 2.5 Mg Tab 2 Tab PO UD 30 04/05/17 Reported 2 tabs (5mg) po on , Gabapentin 300 Mg Cap 1 Cap PO TID 04/05/17 Reported Fowler 5MG/325MG (Acetaminophen/Hydrocodone Bitart) Tab 1 Tablet PO TID PRN 04/05/17 Reported PRN PAIN Monodox (Doxycycline Monohydrate) 100 Mg Cap 100 Mg PO BID 15 04/05/17 Reported Imdur Ext Rel (Isosorbide Mononitrate) 60 Mg Ertab 60 Mg PO QAM 04/05/17 Reported Lopressor (Metoprolol Tartrate) 50 Mg Tab 50 Mg PO BID 03/24/17 Reported Coumadin (Warfarin Sod) 10 Mg Tab 10 Mg PO 5XWK 03/24/17 Reported monday, monday, monday, monday, and monday Senokot S (Senna/Docusate Sodium) 1 Tab Tab 1 Tab PO DAILY PRN 12/14/16 Reported Remeron Soltab (Mirtazapine) 15 Mg Soltab 15 Mg PO HS 12/14/16 Reported Ventolin Hfa (Albuterol) 200 Puffs/20234 Mcg Aers 1-2 Puffs INH Q6H PRN 12/14/16 Reported Flexeril (Cyclobenzaprine Hcl) 10 Mg Tab 10 Mg PO TID PRN 12/14/16 Reported Zyloprim (Allopurinol) 300 Mg Tab 450 Mg PO QAM 12/14/16 Reported Zestril (Lisinopril) 20 Mg Tab 20 Mg PO DAILY 12/14/16 Reported Novolog Mix 70/30 (Insulin Aspart Prota 70%/Aspart 30%) Susp 45 Units SC QPM 12/14/16 Reported Furosemide 80 Mg Tab 80 Mg PO BID 12/14/16 Reported Prednisone 5 Mg Tab 5 Mg PO DAILY 09/27/16 Reported Crestor (Rosuvastatin Calcium) 10 Mg Tab 10 Mg PO QPM 07/17/16 Reported Tylenol (Acetaminophen) 325 Mg Tab 650 Mg PO Q6H PRN 07/17/16 Reported Vitamin D2 (Ergocalciferol) Unknown Strength Tab 50,000 Units PO MONTHLY 07/17/16 Reported Novolog Mix 70/30 (Insulin Aspart Prota 70%/Aspart 30%) Susp 55 Units SC QAM 07/12/16 Reported Nitrostat (Nitroglycerin) 0.4 Mg Tab 0.4 Mg UT PRN PRN 07/02/15 Reported Prilosec (Omeprazole) 20 Mg Capcr 40 Mg PO BID 07/02/15 Reported Review of Systems Constitutional: No fever, No chills, No sweats, No weight loss Respiratory: + shortness of breath, No cough, No sputum, No hemoptysis Cardiac: + edema, No chest pain, No claudication, No palpitations Abdomen: + dysphagia, No pain, No nausea, No vomiting, No diarrhea, No constipation, No GI bleeding Musculoskeletal: No calf pain Male : No dysuria Neuro: No weakness Psych: No insomnia Skin: No rash, No itch, No bleeding, No jaundice Physical Exam Date Time Temp Pulse Resp B/P (MAP) Pulse Ox O2 Delivery O2 Flow Rate FiO2 04/10/17 08:13 36.4 62 24 116/81 (93) 94 BiPAP 62 04/10/17 08:00 Room Air 2/26/18 04:00 CPAP 04/10/17 03:33 36.4 68 17 110/66 (81) 93 CPAP 04/09/17 23:59 CPAP 04/09/17 23:43 36.4 74 25 111/79 (90) 93 CPAP 04/09/17 22:51 80 98 2.0 04/09/17 20:00 Room Air 04/09/17 19:04 36.8 75 20 130/67 (88) 94 Room Air 04/09/17 16:00 Room Air 04/09/17 15:15 36.9 63 12 118/62 (80) 92 Room Air 04/09/17 12:00 Room Air 04/09/17 11:30 36.9 63 18 111/67 (82) 93 Room Air General Appearance: no apparent distress Eyes: PERRL ENT: hearing grossly normal Neck: supple, no JVD, no carotid bruits, trachea midline Respiratory/Chest: lungs clear, normal breath sounds, no respiratory distress, no accessory muscle use, + decreased breath sounds Cardiovascular: no edema, no gallop, no JVD, no murmur, + irregularly irregular Abdomen: normal bowel sounds, non tender, soft, no organomegaly Neurologic/Psych: alert, normal mood/affect, oriented x 3 Skin: normal color, no jaundice, warm/dry, no rash Laboratory Results Last 24 Hours Test 04/09/17 11:08 04/09/17 15:49 04/09/17 20:14 04/10/17 06:53 Bedside Glucose 154 mg/dl 129 mg/dl 167 mg/dl 105 mg/dl Test 04/10/17 07:12 Prothrombin Time 17.4 SECONDS Prothromb Time International Ratio 1.7 Sodium Level 145 mmol/L Potassium Level 3.7 mmol/L Chloride Level 108 mmol/L Carbon Dioxide Level 29 mmol/L Anion Gap 8.0 mmol/L Blood Urea Nitrogen 43 mg/dl Creatinine 1.74 mg/dl Est Creatinine Clear Calc Drug Dose 51.9 ml/min Estimated GFR () 41.7 Estimated GFR (Non- 36.0 BUN/Creatinine Ratio 24.7 Random Glucose 102 mg/dl Calcium Level 9.0 mg/dl Magnesium Level 2.2 mg/dl Impression Patient is a 81 year old male admitted with SOB, acute on chronic CHF, GI was asked to evaluate the Pt for esophageal dysmotility. Notes dysphagia x years with both liquids and solids. RANGE MASTER w/ marked esophageal dysmotility. He has faria's due for EGD this year. Plan - Continue dietary recommendations per RANGE MASTER - OP EGD w/ dilation - OP motility - Continue OP PPI 40 mg daily - Can consider medical management diltiazem daily pending results of EGD w/ dilation if cleared by cardiology Please call with any questions or concerns. ATTESTATION: I have performed a history and physical examination of this patient and reviewed the electronic record. Specifically, on history he reports only intermittent dysphagia and no cough. I would consider empirical dilation with EGD as outpatient after cardiac issues are addressed. I have discussed the case with JOSELIN Esquivel. The above note reflects my findings, conclusions, and recommendations. Rex Saucedo MD
--- NOTE | 2017-04-10 10:46 | Cardiology Follow-Up ---
Subjective General Date of Service: Apr 10, 2017. Chief Complaint: edema Pt evaluation today including: conversation w/ patient, physical exam, chart review, lab review, review of studies, review of inpatient medication list History of Present Illness Patient feeling ok. Notes improvement in LE edema. dyspnea improving. Denies chest pain. No palpitations or dizziness. No cough, fever, chills. Allergies Coded Allergies: NO KNOWN DRUG ALLERGIES (Verified Allergy, Unknown, ., 04/05/17) Social History Hx Tobacco Use In Past Year?: No Hx Alcohol Use - Type And Amou: No Hx Substance Use - Type And Am: No Problem List Medical Problems: (1) A-fib Status: Acute (2) Abnormal ECG Status: Acute (3) Acute electrocardiogram changes Status: Acute (4) Acute electrocardiogram changes Status: Acute (5) Acute kidney injury Status: Acute (6) Acute renal failure Status: Acute (7) Anemia Status: Acute (8) Atrial fibrillation with RVR Status: Acute (9) CHF (congestive heart failure) Status: Acute (10) CHF (congestive heart failure) Status: Acute (11) Dysphagia Status: Acute (12) Edema Status: Acute (13) Elevated troponin Status: Acute (14) Hyperglycemia Status: Acute (15) Hypoglycemia Status: Acute (16) Hypoglycemia Status: Acute (17) Hypoglycemia Status: Acute (18) Hypoxia Status: Acute (19) Insulin dependent diabetes mellitus Status: Acute (20) Jaw pain Status: Acute (21) NSTEMI (non-ST elevated myocardial infarction) Status: Acute (22) Right leg pain Status: Acute (23) Shortness of breath Status: Acute (24) Supratherapeutic INR Status: Acute Review of Systems Respiratory: + dyspnea on exertion, No cough, No sputum, No wheezing, No dyspnea at rest, No hemoptysis Cardiac: + edema, No chest pain, No orthopnea, No PND, No palpitations Physical Exam Vital Signs Last Vital Signs Documentation Date Time Temp Pulse Resp B/P (MAP) Pulse Ox O2 Delivery O2 Flow Rate FiO2 04/10/17 08:13 36.4 62 24 116/81 (93) 94 BiPAP 62 04/09/17 22:51 2.0 04/07/17 21:29 21 Physical Exam Constitutional: General Apperance: obese Level of Distress: NAD, chronically ill Psychiatric: Mental Status: active & alert Orientation: to time, to place, to person Memory: recent memory normal, remote memory normal Head: normocephalic, atraumatic Eyes: Pupils: PERRLA Neck: pertinent finding (No overt JVD observed. Note: Patient examined in a chair) Lungs: Auscultation: no wheezing, no rhonchi, deminished air movement, decreased breath sounds, wet rales/crackles Cardiovascular: Heart Auscultation: no murmurs, no rubs, irregular rate rhythm Peripheral Pulses: Radial Pulse: normal on the left, normal on the right Dorsalis Pedis Pulse: absent on the left, absent on the right Abdomen: Bowel Sounds: normal Inspection & Palpation: distended Extremities: no cyanosis, edema (considerable edema into the upper thighs), ulcers Neurologic: Cranial Nerves: grossly intact Assessment and Plan Assessment and Plan Impression: 81-year-old male 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 Down 10 kg since admission. renal function improving. monitor electrolytes. Continue potassium. continue CPAP at night Continue metoprolol Continue Coumadin, INR is at goal at [address] Alexandra. Will follow. Cardiology attending: Pt seen and examined, agree with findings of Ketty Buckley PA-C. Pt remains volume overloaded but greatly improved from admission. Will cont with IV diuresis. Laboratory Results Last 24 Hours Test 04/09/17 11:08 04/09/17 15:49 04/09/17 20:14 04/10/17 06:53 Bedside Glucose 154 mg/dl 129 mg/dl 167 mg/dl 105 mg/dl Test 04/10/17 07:12 Prothrombin Time 17.4 SECONDS Prothromb Time International Ratio 1.7 Sodium Level 145 mmol/L Potassium Level 3.7 mmol/L Chloride Level 108 mmol/L Carbon Dioxide Level 29 mmol/L Anion Gap 8.0 mmol/L Blood Urea Nitrogen 43 mg/dl Creatinine 1.74 mg/dl Est Creatinine Clear Calc Drug Dose 51.9 ml/min Estimated GFR () 41.7 Estimated GFR (Non- 36.0 BUN/Creatinine Ratio 24.7 Random Glucose 102 mg/dl Calcium Level 9.0 mg/dl Magnesium Level 2.2 mg/dl
[2017-04-10] MEDS ORDERED: WARFARIN SOD 5 MG TAB PO SCH (16:00)
--- NOTE | 2017-04-10 19:37 | Progress Note ---
Medicine Progress Note Date & Time of Visit: Apr 10, 2017 at 19:31. Subjective patient seen resting in bedside chair comfortable states he feels improved again today no dyspnea, chest pain tolerating diet ok no other symptoms Objective Last 8 Hrs Date Time Temp Pulse Resp B/P (MAP) Pulse Ox O2 Delivery O2 Flow Rate FiO2 04/10/17 16:00 Room Air 04/10/17 15:35 36.5 66 22 133/79 (97) 96 Room Air 04/10/17 15:00 Room Air 04/10/17 12:10 36.9 68 14 117/64 (81) 95 Room Air 04/10/17 12:00 Room Air Physical Exam: General- oriented x 3, not in distress Neck- no JVD Lungs- clear BS bilaterally Heart- normal rate, regular rhythm; no murmurs Abdomen- normal bowel sounds, soft, nontender Extremities- lower legs with heavy dressing/wrap in place, no calf tenderness Neuro- alert, oriented x 3; no gross focal deficits Skin- warm & dry Laboratory Results: Last 24 Hours Test 04/09/17 20:14 04/10/17 06:53 04/10/17 07:12 04/10/17 11:17 Bedside Glucose 167 mg/dl 105 mg/dl 118 mg/dl Prothrombin Time 17.4 SECONDS Prothromb Time International Ratio 1.7 Sodium Level 145 mmol/L Potassium Level 3.7 mmol/L Chloride Level 108 mmol/L Carbon Dioxide Level 29 mmol/L Anion Gap 8.0 mmol/L Blood Urea Nitrogen 43 mg/dl Creatinine 1.74 mg/dl Est Creatinine Clear Calc Drug Dose 51.9 ml/min Estimated GFR () 41.7 Estimated GFR (Non- 36.0 BUN/Creatinine Ratio 24.7 Random Glucose 102 mg/dl Calcium Level 9.0 mg/dl Magnesium Level 2.2 mg/dl Test 04/10/17 16:23 Bedside Glucose 140 mg/dl Assessment & Plan 81 year old male with history of Ischemic Cardiomyopathy, CAD, Atrial Fibrillation on Coumadin, DM 2, HTN, CKD 3... ACUTE ON CHRONIC SYSTOLIC HEART FAILURE ISCHEMIC CARDIOMYOPATHY - echo 12/30: EF: 30-35%. No CP - Cardiology and Nephrology on board Lasix 60mg IV BID diuresing well, weight down by 10kg crea improving also -continue beta leah, isosorbide, statin holding lisinopril at this time with YAMEL YAMEL on CKD III Cr: 2.4. baseline high 1's - crea 2.3--> 1.86--> 1.7 -hold lisinopril at this time A-FIB on CHRONIC COUMADIN rate controlled at this time. INR: 1.7 - coumadin 5mg po daily -continue beta leah DYSPHAGIA - s/p VF Swallow test: (+) significant esophageal dysmotility - diet modified - consulted GI recommend outpatient EGD INSULIN DEPENDENT DM II Pt reports BS varying. Reports low in 30's today increased to 90 with orange juice. HA1c on 03/25/17 was 7.9 -hold home 70/30 -basal and Novolog sliding scale -glycemic consult CELLULITIS D/C from hospital on 03/29/17 for BLE cellulitis. +MRSA. Follows with ID and wound clinic. No fever/chills, no increased erythema -continue doxycycline, to complete 15 days, last day 04/14/17 -wound consult, follow instructions SHAUNA -CPAP HS DVT Prophylaxis -On coumadin Disposition admit tele Full Code as per discussion with pt Follows with Dr Ryder for routine care Current Inpatient Medications: Current Inpatient Medications Medications (Trade) Dose Ordered Sig/Aileen Route Start Time Stop Time Status Last Admin Dose Admin Acetaminophen (Tylenol Tab) 650 mg Q4H PRN PO 04/05/17 16:15 05/05/17 16:14 Magnesium Hydroxide (Milk Of Magnesia Susp) 30 ml Q12H PRN PO 04/05/17 16:15 05/05/17 16:14 Nitroglycerin (Nitrostat Tab) 0.4 mg UD PRN SL 04/05/17 16:15 05/05/17 16:14 Insulin Aspart (novoLOG ASPART) SLIDING SCALE If C... ACHS SC 04/05/17 16:00 05/05/17 15:59 04/10/17 17:25 12 UNITS Glucose (Glucose 40% Gel) 15-30 GRAMS 15 GRAMS... UD PRN PO 04/05/17 16:30 05/05/17 16:29 Glucose (Glucose Chew Tab) 4-8 Tablets 4 Tabl... UD PRN PO 04/05/17 16:30 05/05/17 16:29 Dextrose (Dextrose 50% 50ML Syringe) 25-50ML OF 50% DW IV FOR... UD PRN IV 04/05/17 16:30 05/05/17 16:29 Glucagon (Glucagon Inj) 1 mg UD PRN SQ 04/05/17 16:30 05/05/17 16:29 Miscellaneous Information (Consult Glycemic Management Pharmacy) 1 ea UD PRN N/A 04/05/17 17:05 05/05/17 17:04 Albuterol (Ventolin Hfa Inhaler) 2 puffs Q6H PRN INH 04/05/17 16:30 05/05/17 16:29 Allopurinol (Zyloprim Tab) 450 mg QAM PO 04/06/17 09:00 05/06/17 08:59 04/10/17 08:05 450 MG Cyclobenzaprine HCl (Flexeril Tab) 10 mg TID PRN PO 04/05/17 16:30 05/05/17 16:29 Doxycycline Hyclate (Vibramycin Cap) 100 mg BID PO 04/05/17 21:00 04/15/17 20:59 04/10/17 08:05 100 MG Gabapentin (Neurontin Cap) 300 mg TID PO 04/05/17 21:00 05/05/17 20:59 04/10/17 14:10 300 MG Acetaminophen/ Hydrocodone Bitart ([place] 5/325 Tab) 1 tab TID PRN PO 04/05/17 16:30 04/19/17 16:29 04/08/17 23:24 1 TAB Isosorbide Mononitrate (Imdur Ext Rel Tab) 60 mg QAM PO 04/06/17 09:00 05/06/17 08:59 04/10/17 08:05 60 MG Metoprolol Tartrate (Lopressor Tab) 50 mg BID PO 04/05/17 21:00 05/05/17 20:59 04/10/17 08:05 50 MG Mirtazapine (Remeron Solutab) 15 mg HS PO 04/05/17 21:00 05/05/17 20:59 04/09/17 19:10 15 MG Prednisone (PredniSONE TAB) 5 mg DAILY PO 04/06/17 09:00 05/06/17 08:59 04/10/17 08:06 5 MG Rosuvastatin Calcium (Crestor Tab) 10 mg QPM PO 04/05/17 21:00 05/05/17 20:59 04/09/17 19:11 10 MG Pantoprazole Sodium (Protonix Tab) 40 mg BID PO 04/05/17 21:00 05/05/17 20:59 04/10/17 08:06 40 MG Furosemide 60 mg/ Syringe 6 ml @ 4 mls/min BID17 IV 04/06/17 09:00 05/06/17 08:59 04/10/17 17:27 4 MLS/MIN Potassium Chloride (Klor-Con Tab) 20 meq BID PO 04/07/17 11:00 05/07/17 10:59 04/10/17 08:05 20 MEQ Warfarin Sodium (Coumadin Tab) 5 mg DAILY@16 PO 04/10/17 16:00 05/08/17 15:59 04/10/17 16:18 5 MG Insulin Glargine (Lantus Solostar Pen) 16 units Q12 SC 04/10/17 21:00 05/10/17 20:59
[2017-04-10] MEDS: ROSUVASTATIN CALCIUM 10 MG TAB PO SCH (20:34)
[2017-04-10] MEDS: MIRTAZAPINE SOLTAB 15 MG PO SCH (20:36)
[2017-04-10] MEDS ORDERED: INSULIN GLARGINE SOLOSTAR 100 UNITS/ML 3 ML PEN SC SCH (21:00)
[2017-04-11] VITALS (8 sets, daily range): BP systolic 109–134; BP diastolic 55–74; PULSE 63–79; TEMP 36.4–37.1; O2SAT 92–98
[2017-04-11 06:42] LABS: INR 1.6 (0.9-1.1)
[2017-04-11 07:02] LABS: CALCIUM 8.8 mg/dl (8.5-10.1); CREATININE 1.81 mg/dl (0.60-1.40); POTASSIUM 3.8 mmol/L (3.5-5.1)
[2017-04-11] MEDS: FUROSEMIDE INJ 60 MG in SYRINGE 0 ML IV SCH ×2 (07:36→17:38)
[2017-04-11] MEDS: PANTOprazole SOD 40 MG TAB PO SCH ×2 (07:36→20:27)
[2017-04-11] MEDS: GABAPENTIN 300 MG CAP PO SCH ×3 (07:36→20:27)
[2017-04-11] MEDS: ISOSORBIDE MONONITRATE 60 MG TABCR PO SCH (07:36)
[2017-04-11] MEDS: DOXYCYCLINE HYCLATE 100 MG CAP PO SCH ×2 (07:36→20:27)
[2017-04-11] MEDS: POTASSIUM CHLORIDE 20 MEQ TABCR PO SCH ×2 (07:37→20:26)
[2017-04-11] MEDS: METOPROLOL TARTRATE 50 MG TAB PO SCH ×2 (07:37→20:26)
[2017-04-11] MEDS: ALLOPURINOL 300 MG TAB PO SCH (07:37)
[2017-04-11] MEDS: INSULIN GLARGINE SOLOSTAR 100 UNITS/ML 3 ML PEN SC SCH ×2 (07:40→20:33)
[2017-04-11] MEDS: INSULIN ASPART 100 UNITS/ML 3 ML PEN SC SCH ×4 (07:55→20:33)
--- NOTE | 2017-04-11 09:20 | Nephrology Progress Note ---
Nephrology Progress Note Date of Service: Apr 11, 2017. Subjective 81 yo male with yamel/volume overload/hx of recent cellulitis who overall is doing much better. weight significantly down. legs look better. breathing is improved. pt is oob to chair. Objective Date Time Temp Pulse Resp B/P (MAP) Pulse Ox O2 Delivery O2 Flow Rate FiO2 04/11/17 08:15 36.6 63 20 115/64 (81) 95 63 04/11/17 08:00 Room Air 04/11/17 04:00 36.5 63 18 109/71 (84) 94 CPAP 04/11/17 04:00 95 CPAP 2.0 21 04/11/17 00:00 95 CPAP 2.0 21 04/10/17 23:40 36.2 68 23 133/81 (98) 95 CPAP 04/10/17 21:31 72 95 21 04/10/17 20:00 93 Room Air 04/10/17 19:25 36.8 69 18 119/71 (87) 93 Room Air 04/10/17 16:00 Room Air 04/10/17 15:35 36.5 66 22 133/79 (97) 96 Room Air 04/10/17 15:00 Room Air 04/10/17 12:10 36.9 68 14 117/64 (81) 95 Room Air 04/10/17 12:00 Room Air Physical Exam: General-aaox3 Eyes-no scleral icterus ENT-mmm Neck-supple Lungs-cta Heart-irregularly irregular Abdomen-bs+/soft/nontender Extremities-+1 edema/wrapped Neuro-nonfocal Current Inpatient Medications Medications (Trade) Dose Ordered Sig/Aileen Route Start Time Stop Time Status Last Admin Dose Admin Acetaminophen (Tylenol Tab) 650 mg Q4H PRN PO 04/05/17 16:15 05/05/17 16:14 Magnesium Hydroxide (Milk Of Magnesia Susp) 30 ml Q12H PRN PO 04/05/17 16:15 05/05/17 16:14 Nitroglycerin (Nitrostat Tab) 0.4 mg UD PRN SL 04/05/17 16:15 05/05/17 16:14 Insulin Aspart (novoLOG ASPART) SLIDING SCALE If C... ACHS SC 04/05/17 16:00 05/05/17 15:59 04/10/17 17:25 12 UNITS Glucose (Glucose 40% Gel) 15-30 GRAMS 15 GRAMS... UD PRN PO 04/05/17 16:30 05/05/17 16:29 Glucose (Glucose Chew Tab) 4-8 Tablets 4 Tabl... UD PRN PO 04/05/17 16:30 05/05/17 16:29 Dextrose (Dextrose 50% 50ML Syringe) 25-50ML OF 50% DW IV FOR... UD PRN IV 04/05/17 16:30 05/05/17 16:29 Glucagon (Glucagon Inj) 1 mg UD PRN SQ 04/05/17 16:30 05/05/17 16:29 Miscellaneous Information (Consult Glycemic Management Pharmacy) 1 ea UD PRN N/A 04/05/17 17:05 05/05/17 17:04 Albuterol (Ventolin Hfa Inhaler) 2 puffs Q6H PRN INH 04/05/17 16:30 05/05/17 16:29 Allopurinol (Zyloprim Tab) 450 mg QAM PO 04/06/17 09:00 05/06/17 08:59 04/11/17 07:37 450 MG Cyclobenzaprine HCl (Flexeril Tab) 10 mg TID PRN PO 04/05/17 16:30 05/05/17 16:29 Doxycycline Hyclate (Vibramycin Cap) 100 mg BID PO 04/05/17 21:00 04/15/17 20:59 04/11/17 07:36 100 MG Gabapentin (Neurontin Cap) 300 mg TID PO 04/05/17 21:00 05/05/17 20:59 04/11/17 07:36 300 MG Acetaminophen/ Hydrocodone Bitart ([place] 5/325 Tab) 1 tab TID PRN PO 04/05/17 16:30 04/19/17 16:29 04/08/17 23:24 1 TAB Isosorbide Mononitrate (Imdur Ext Rel Tab) 60 mg QAM PO 04/06/17 09:00 05/06/17 08:59 04/11/17 07:36 60 MG Metoprolol Tartrate (Lopressor Tab) 50 mg BID PO 04/05/17 21:00 05/05/17 20:59 04/11/17 07:37 50 MG Mirtazapine (Remeron Solutab) 15 mg HS PO 04/05/17 21:00 05/05/17 20:59 04/10/17 20:36 15 MG Prednisone (PredniSONE TAB) 5 mg DAILY PO 04/06/17 09:00 05/06/17 08:59 04/11/17 07:36 5 MG Rosuvastatin Calcium (Crestor Tab) 10 mg QPM PO 04/05/17 21:00 05/05/17 20:59 04/10/17 20:34 10 MG Pantoprazole Sodium (Protonix Tab) 40 mg BID PO 04/05/17 21:00 05/05/17 20:59 04/11/17 07:36 40 MG Furosemide 60 mg/ Syringe 6 ml @ 4 mls/min BID17 IV 04/06/17 09:00 05/06/17 08:59 04/11/17 07:36 4 MLS/MIN Potassium Chloride (Klor-Con Tab) 20 meq BID PO 04/07/17 11:00 05/07/17 10:59 04/11/17 07:37 20 MEQ Insulin Glargine (Lantus Solostar Pen) 16 units Q12 SC 04/10/17 21:00 05/10/17 20:59 04/11/17 07:40 16 UNITS Warfarin Sodium (Coumadin Tab) 7.5 mg DAILY@16 PO 04/11/17 16:00 05/08/17 15:59 UNV Last 24 Hours Test 04/10/17 11:17 04/10/17 16:23 04/10/17 20:38 04/11/17 06:08 Bedside Glucose 118 mg/dl 140 mg/dl 135 mg/dl Prothrombin Time 16.9 SECONDS Prothromb Time International Ratio 1.6 Sodium Level 146 mmol/L Potassium Level 3.8 mmol/L Chloride Level 108 mmol/L Carbon Dioxide Level 33 mmol/L Anion Gap 6.0 mmol/L Blood Urea Nitrogen 43 mg/dl Creatinine 1.81 mg/dl Est Creatinine Clear Calc Drug Dose 49.7 ml/min Estimated GFR () 39.7 Estimated GFR (Non- 34.3 BUN/Creatinine Ratio 23.6 Random Glucose 84 mg/dl Calcium Level 8.8 mg/dl Magnesium Level 2.1 mg/dl Test 04/11/17 06:52 Bedside Glucose 82 mg/dl Assessment & Plan YAMEL on ckd-creatinine under 2 and tolerating the current diuretics. on lasix 60 iv bid. down 6 kilos and is 2 liters negative a day. hypokalemia-on potassium supplementation and stable at 3.8 metabolic alkalosis-bicarb was 25 and trended up to 33. indicating possibly that we are reaching an end point on intravascular diuresis. if bicarb continues to trend up, may need to switch to oral diuretics. could add diamox as well. will discuss cateer with hospitalist and cardiology.
--- NOTE | 2017-04-11 09:38 | Cardiology Follow-Up ---
Subjective General Date of Service: Apr 11, 2017. Chief Complaint: edema/SOB Pt evaluation today including: conversation w/ patient, physical exam, chart review, lab review, review of studies, review of inpatient medication list History of Present Illness Patient feeling ok. Notes improvement in LE edema. Still notes SOB. patient believes he is not at baseline yet and not ready to go home. No cough. No fever or chills. No orthopnea, PND. No chest pain. No palpitations. Allergies Coded Allergies: NO KNOWN DRUG ALLERGIES (Verified Allergy, Unknown, ., 04/05/17) Social History Hx Tobacco Use In Past Year?: No Hx Alcohol Use - Type And Amou: No Hx Substance Use - Type And Am: No Problem List Medical Problems: (1) A-fib Status: Acute (2) Abnormal ECG Status: Acute (3) Acute electrocardiogram changes Status: Acute (4) Acute electrocardiogram changes Status: Acute (5) Acute kidney injury Status: Acute (6) Acute renal failure Status: Acute (7) Anemia Status: Acute (8) Atrial fibrillation with RVR Status: Acute (9) CHF (congestive heart failure) Status: Acute (10) CHF (congestive heart failure) Status: Acute (11) Dysphagia Status: Acute (12) Edema Status: Acute (13) Elevated troponin Status: Acute (14) Hyperglycemia Status: Acute (15) Hypoglycemia Status: Acute (16) Hypoglycemia Status: Acute (17) Hypoglycemia Status: Acute (18) Hypoxia Status: Acute (19) Insulin dependent diabetes mellitus Status: Acute (20) Jaw pain Status: Acute (21) NSTEMI (non-ST elevated myocardial infarction) Status: Acute (22) Right leg pain Status: Acute (23) Shortness of breath Status: Acute (24) Supratherapeutic INR Status: Acute Review of Systems Respiratory: + shortness of breath, + dyspnea on exertion, No cough, No wheezing, No hemoptysis Cardiac: + edema, No chest pain, No orthopnea, No PND, No palpitations Physical Exam Vital Signs Last Vital Signs Documentation Date Time Temp Pulse Resp B/P (MAP) Pulse Ox O2 Delivery O2 Flow Rate FiO2 04/11/17 08:15 36.6 63 20 115/64 (81) 95 63 04/11/17 08:00 Room Air 04/11/17 04:00 2.0 21 Physical Exam Constitutional: General Apperance: obese Level of Distress: NAD, chronically ill Psychiatric: Mental Status: active & alert Orientation: to time, to place, to person Head: normocephalic, atraumatic Eyes: Pupils: PERRLA Neck: supple, pertinent finding (No overt JVD observed. Note: Patient examined in a chair) Lungs: Auscultation: no wheezing, no rales/crackles, no rhonchi, deminished air movement, decreased breath sounds Cardiovascular: Heart Auscultation: no murmurs, no rubs, irregular rate rhythm Peripheral Pulses: Radial Pulse: normal on the left, normal on the right Dorsalis Pedis Pulse: absent on the left, absent on the right Abdomen: Bowel Sounds: normal Inspection & Palpation: distended Extremities: no cyanosis, edema (1-2+ edema to thighs b/l), ulcers Neurologic: Cranial Nerves: grossly intact Assessment and Plan Assessment and Plan Impression: 81-year-old male Acute on chronic right greater than left biventricular congestive heart failure signs and symptoms Chronic ischemic cardiomyopathy, LVEF 30-35% most recent echocardiogram in 2017 Chronic kidney disease Chronic rate controlled atrial fibrillation on telemetry, occasional PVC Non sustained VT, 10 beat run last night, during times of presumed sleeping Plan: Labs demonstrate possible intravascular volume depletion with rising bicarb and creatinine. Continue IV furosemide today. Hold AM dose until labs reviewed and patient evaluated by providers. He continues to improve with diuresis. Down 8 kg since admission. renal function improving. monitor electrolytes. Continue potassium. continue CPAP at night Continue metoprolol Continue Coumadin, INR is at goal at 2. INR subtherapeutic. Dose increased to 7.5 mg today. He takes 10 mg daily at home. Case discussed with Dr. Alexandra. Will follow. Cardiology attending: Pt seen and examined, agree with findings and assessment as per Ketty Ndiaye. Pt has diuresed well and now intravascularly volume depleted by lab numbers. Will finish today's diuretics as planned and hold for AM. Will assess volume status clinically at that time. Laboratory Results Last 24 Hours Test 04/10/17 11:17 04/10/17 16:23 04/10/17 20:38 04/11/17 06:08 Bedside Glucose 118 mg/dl 140 mg/dl 135 mg/dl Prothrombin Time 16.9 SECONDS Prothromb Time International Ratio 1.6 Sodium Level 146 mmol/L Potassium Level 3.8 mmol/L Chloride Level 108 mmol/L Carbon Dioxide Level 33 mmol/L Anion Gap 6.0 mmol/L Blood Urea Nitrogen 43 mg/dl Creatinine 1.81 mg/dl Est Creatinine Clear Calc Drug Dose 49.7 ml/min Estimated GFR () 39.7 Estimated GFR (Non- 34.3 BUN/Creatinine Ratio 23.6 Random Glucose 84 mg/dl Calcium Level 8.8 mg/dl Magnesium Level 2.1 mg/dl Test 04/11/17 06:52 Bedside Glucose 82 mg/dl
--- NOTE | 2017-04-11 11:47 | Progress Note ---
Subjective Date of Service: Apr 11, 2017. Subjective Pt evaluation today including: conversation w/ patient, physical exam, lab review, review of studies, review of inpatient medication list Saw/examined the patient in room 206 He's doing well today has some residual shortness of breath, worse with ambulation continues to have a negative fluid balance, almost 2L yesterday Denies any pain lower extremities wrapped two days prior, no pain noted Problem List Medical Problems: (1) A-fib Status: Acute (2) Abnormal ECG Status: Acute (3) Acute electrocardiogram changes Status: Acute (4) Acute electrocardiogram changes Status: Acute (5) Acute kidney injury Status: Acute (6) Acute renal failure Status: Acute (7) Anemia Status: Acute (8) Atrial fibrillation with RVR Status: Acute (9) CHF (congestive heart failure) Status: Acute (10) CHF (congestive heart failure) Status: Acute (11) Dysphagia Status: Acute (12) Edema Status: Acute (13) Elevated troponin Status: Acute (14) Hyperglycemia Status: Acute (15) Hypoglycemia Status: Acute (16) Hypoglycemia Status: Acute (17) Hypoglycemia Status: Acute (18) Hypoxia Status: Acute (19) Insulin dependent diabetes mellitus Status: Acute (20) Jaw pain Status: Acute (21) NSTEMI (non-ST elevated myocardial infarction) Status: Acute (22) Right leg pain Status: Acute (23) Shortness of breath Status: Acute (24) Supratherapeutic INR Status: Acute Review of Systems Constitutional: No fever, No chills Respiratory: + dyspnea on exertion, No cough, No sputum, No wheezing, No shortness of breath Cardiac: + edema, No chest pain, No palpitations Medications Current Inpatient Medications Medications (Trade) Dose Ordered Sig/Aileen Route Start Time Stop Time Status Last Admin Dose Admin Acetaminophen (Tylenol Tab) 650 mg Q4H PRN PO 04/05/17 16:15 05/05/17 16:14 Magnesium Hydroxide (Milk Of Magnesia Susp) 30 ml Q12H PRN PO 04/05/17 16:15 05/05/17 16:14 Nitroglycerin (Nitrostat Tab) 0.4 mg UD PRN SL 04/05/17 16:15 05/05/17 16:14 Insulin Aspart (novoLOG ASPART) SLIDING SCALE If C... ACHS SC 04/05/17 16:00 3/23/18 15:59 04/10/17 17:25 12 UNITS Glucose (Glucose 40% Gel) 15-30 GRAMS 15 GRAMS... UD PRN PO 04/05/17 16:30 05/05/17 16:29 Glucose (Glucose Chew Tab) 4-8 Tablets 4 Tabl... UD PRN PO 04/05/17 16:30 05/05/17 16:29 Dextrose (Dextrose 50% 50ML Syringe) 25-50ML OF 50% DW IV FOR... UD PRN IV 04/05/17 16:30 05/05/17 16:29 Glucagon (Glucagon Inj) 1 mg UD PRN SQ 04/05/17 16:30 05/05/17 16:29 Miscellaneous Information (Consult Glycemic Management Pharmacy) 1 ea UD PRN N/A 04/05/17 17:05 05/05/17 17:04 Albuterol (Ventolin Hfa Inhaler) 2 puffs Q6H PRN INH 04/05/17 16:30 05/05/17 16:29 Allopurinol (Zyloprim Tab) 450 mg QAM PO 04/06/17 09:00 05/06/17 08:59 04/11/17 07:37 450 MG Cyclobenzaprine HCl (Flexeril Tab) 10 mg TID PRN PO 04/05/17 16:30 05/05/17 16:29 Doxycycline Hyclate (Vibramycin Cap) 100 mg BID PO 04/05/17 21:00 04/15/17 20:59 04/11/17 07:36 100 MG Gabapentin (Neurontin Cap) 300 mg TID PO 04/05/17 21:00 05/05/17 20:59 04/11/17 07:36 300 MG Acetaminophen/ Hydrocodone Bitart ([place] 5/325 Tab) 1 tab TID PRN PO 04/05/17 16:30 04/19/17 16:29 04/08/17 23:24 1 TAB Isosorbide Mononitrate (Imdur Ext Rel Tab) 60 mg QAM PO 04/06/17 09:00 05/06/17 08:59 04/11/17 07:36 60 MG Metoprolol Tartrate (Lopressor Tab) 50 mg BID PO 04/05/17 21:00 05/05/17 20:59 04/11/17 07:37 50 MG Mirtazapine (Remeron Solutab) 15 mg HS PO 04/05/17 21:00 05/05/17 20:59 04/10/17 20:36 15 MG Prednisone (PredniSONE TAB) 5 mg DAILY PO 04/06/17 09:00 05/06/17 08:59 04/11/17 07:36 5 MG Rosuvastatin Calcium (Crestor Tab) 10 mg QPM PO 04/05/17 21:00 05/05/17 20:59 04/10/17 20:34 10 MG Pantoprazole Sodium (Protonix Tab) 40 mg BID PO 04/05/17 21:00 05/05/17 20:59 04/11/17 07:36 40 MG Furosemide 60 mg/ Syringe 6 ml @ 4 mls/min BID17 IV 04/06/17 09:00 05/06/17 08:59 04/11/17 07:36 4 MLS/MIN Potassium Chloride (Klor-Con Tab) 20 meq BID PO 04/07/17 11:00 05/07/17 10:59 04/11/17 07:37 20 MEQ Insulin Glargine (Lantus Solostar Pen) 16 units Q12 SC 04/10/17 21:00 05/10/17 20:59 04/11/17 07:40 16 UNITS Warfarin Sodium (Coumadin Tab) 7.5 mg DAILY@16 PO 04/11/17 16:00 05/08/17 15:59 Objective Vital Signs Date Time Temp Pulse Resp B/P (MAP) Pulse Ox O2 Delivery O2 Flow Rate FiO2 04/11/17 08:15 36.6 63 20 115/64 (81) 95 63 04/11/17 08:00 Room Air 04/11/17 04:00 36.5 63 18 109/71 (84) 94 CPAP 04/11/17 04:00 95 CPAP 2.0 21 04/11/17 00:00 95 CPAP 2.0 21 04/10/17 23:40 36.2 68 23 133/81 (98) 95 CPAP 04/10/17 21:31 72 95 21 04/10/17 20:00 93 Room Air 04/10/17 19:25 36.8 69 18 119/71 (87) 93 Room Air 04/10/17 16:00 Room Air 04/10/17 15:35 36.5 66 22 133/79 (97) 96 Room Air 04/10/17 15:00 Room Air 04/10/17 12:10 36.9 68 14 117/64 (81) 95 Room Air 04/10/17 12:00 Room Air Physical Exam General Appearance: no apparent distress, + obese Respiratory/Chest: no respiratory distress, no accessory muscle use, + decreased breath sounds Cardiovascular: no murmur, + irregularly irregular Extremities: + swelling, + pertinent finding (the lower extremities are dressed , there is still residual) Laboratory Results Last 24 Hours Test 04/10/17 11:17 04/10/17 16:23 04/10/17 20:38 04/11/17 06:08 Bedside Glucose 118 mg/dl 140 mg/dl 135 mg/dl Prothrombin Time 16.9 SECONDS Prothromb Time International Ratio 1.6 Sodium Level 146 mmol/L Potassium Level 3.8 mmol/L Chloride Level 108 mmol/L Carbon Dioxide Level 33 mmol/L Anion Gap 6.0 mmol/L Blood Urea Nitrogen 43 mg/dl Creatinine 1.81 mg/dl Est Creatinine Clear Calc Drug Dose 49.7 ml/min Estimated GFR () 39.7 Estimated GFR (Non- 34.3 BUN/Creatinine Ratio 23.6 Random Glucose 84 mg/dl Calcium Level 8.8 mg/dl Magnesium Level 2.1 mg/dl Test 04/11/17 06:52 Bedside Glucose 82 mg/dl Assessment and Plan This is an 81 year old male with a PMH of CAD s/p CABG, ischemic cardiomyopathy and systolic CHF with EF around 30-35%, chronic atrial fibrillation on long- term anticoagulation, insulin dependent DM2, CKD stage 3, HTN, chronic lower extremity swelling/venous stasis and wound ulcerations, chronic gout on long- term steroid use, SHAUNA on CPAP - presents with worsening shortness of breath and worsening lower extremity edema. Acute on Chronic Systolic CHF Ischemic Cardiomyopathy LVEF of around 30-35% with multiple areas of hypokinesis on last echo in December 2016 takes a high dose of diuretics at home (Lasix 80mg BID) presented here and was started on IV Lasix 60mg BID JUSTIN-I held due to kidney function appreciate cardiology and nephrology input on 04/11 - will hold AM dose of Lasix, monitor bicarb levels may need to switch to oral diuretics, will await further input from cardiology Chronic Atrial Fibrillation on long-term Coumadin, with a goal INR of 2-3 currently subtherapeutic; dose of Coumadin increased to 7.5mg for tonight, will increase to 10mg tomorrow (04/12) CAD hx. of CABG x5 no acute issues will continue Imdur, statin, b-leah Venous Stasis Ulcerations patient sees wound care as outpatient was started on doxycycline as outpatient due to possible infection will need to stay on doxy until at least the end of the week further input as per wound care Insulin Dependent DM2 well controlled; Ha1c = 6.0% currently held his NPH 70/30 will continue current dose of Lantus and sliding scale on discharge: back to home dose Chronic Gout patient on long-term prednisone for prophylaxis should see rheumatology regarding stopping this as it is likely making his lower extremity edema worse for now, continue low dose, 5mg of prednisone HTN blood pressure stable will consider adding back JUSTIN-I due to DM2, CHF CKD stage 3 creatinine up to 1.8, but close to baseline appreciate nephrology input DVT ppx Coumadin FULL CODE
[2017-04-11] MEDS ORDERED: WARFARIN SOD 7.5 MG TAB PO SCH (16:00)
[2017-04-11] MEDS: ROSUVASTATIN CALCIUM 10 MG TAB PO SCH (20:26)
[2017-04-11] MEDS: MIRTAZAPINE SOLTAB 15 MG PO SCH (20:27)
[2017-04-12] VITALS (7 sets, daily range): BP systolic 103–135; BP diastolic 54–77; PULSE 65–78; TEMP 36.3–37; O2SAT 93–95
[2017-04-12 06:32] LABS: INR 1.6 (0.9-1.1)
[2017-04-12 06:35] LABS: HEMATOCRIT 34.7 % (42-52); HEMOGLOBIN 11.1 g/dL (14.0-18.0); MEAN CELL VOLUME 95.1 fL (80-100); MEAN CORPUSCULAR HEMOGLOBIN 30.4 pg (25-34); MEAN PLATELET VOLUME 9.5 fL (7.4-10.4); PLATELET COUNT 121 K/uL (130-400); RED CELL DISTRIBUTION WIDTH CV 18.7 % (11.5-14.5); RED CELL DISTRIBUTION WIDTH SD 64.8 fL (36.4-46.3); WHITE BLOOD COUNT 6.39 K/uL (4.8-10.8)
[2017-04-12 07:03] LABS: CALCIUM 8.8 mg/dl (8.5-10.1); CREATININE 1.71 mg/dl (0.60-1.40); POTASSIUM 3.6 mmol/L (3.5-5.1)
[2017-04-12] MEDS: DOXYCYCLINE HYCLATE 100 MG CAP PO SCH ×2 (07:45→21:12)
[2017-04-12] MEDS: ALLOPURINOL 300 MG TAB PO SCH (07:45)
[2017-04-12] MEDS: GABAPENTIN 300 MG CAP PO SCH ×3 (07:45→21:12)
[2017-04-12] MEDS: ISOSORBIDE MONONITRATE 60 MG TABCR PO SCH (07:46)
[2017-04-12] MEDS: POTASSIUM CHLORIDE 20 MEQ TABCR PO SCH ×2 (07:46→21:11)
[2017-04-12] MEDS: PANTOprazole SOD 40 MG TAB PO SCH ×2 (07:46→21:12)
[2017-04-12] MEDS: METOPROLOL TARTRATE 50 MG TAB PO SCH ×2 (07:46→21:11)
[2017-04-12] MEDS: INSULIN ASPART 100 UNITS/ML 3 ML PEN SC SCH ×4 (07:49→21:14)
[2017-04-12] MEDS: INSULIN GLARGINE SOLOSTAR 100 UNITS/ML 3 ML PEN SC SCH ×2 (07:50→21:15)
--- NOTE | 2017-04-12 08:31 | Progress Note ---
Subjective Date of Service: Apr 12, 2017. Subjective Pt evaluation today including: conversation w/ patient, physical exam, lab review, review of studies, review of inpatient medication list Saw/examined the patient in room 206 lower extremity dressing changed today, states he feels it is looking much better breathing improving, though dyspnea with exertion still present Denies any chest pain or palpitations Problem List Medical Problems: (1) A-fib Status: Acute (2) Abnormal ECG Status: Acute (3) Acute electrocardiogram changes Status: Acute (4) Acute electrocardiogram changes Status: Acute (5) Acute kidney injury Status: Acute (6) Acute renal failure Status: Acute (7) Anemia Status: Acute (8) Atrial fibrillation with RVR Status: Acute (9) CHF (congestive heart failure) Status: Acute (10) CHF (congestive heart failure) Status: Acute (11) Dysphagia Status: Acute (12) Edema Status: Acute (13) Elevated troponin Status: Acute (14) Hyperglycemia Status: Acute (15) Hypoglycemia Status: Acute (16) Hypoglycemia Status: Acute (17) Hypoglycemia Status: Acute (18) Hypoxia Status: Acute (19) Insulin dependent diabetes mellitus Status: Acute (20) Jaw pain Status: Acute (21) NSTEMI (non-ST elevated myocardial infarction) Status: Acute (22) Right leg pain Status: Acute (23) Shortness of breath Status: Acute (24) Supratherapeutic INR Status: Acute Review of Systems Respiratory: + dyspnea on exertion, No cough, No sputum, No wheezing, No shortness of breath, No dyspnea at rest, No hemoptysis Cardiac: + edema, No chest pain, No palpitations Abdomen: No pain, No nausea, No vomiting, No diarrhea Medications Current Inpatient Medications Medications (Trade) Dose Ordered Sig/Aileen Route Start Time Stop Time Status Last Admin Dose Admin Acetaminophen (Tylenol Tab) 650 mg Q4H PRN PO 04/05/17 16:15 05/05/17 16:14 Magnesium Hydroxide (Milk Of Magnesia Susp) 30 ml Q12H PRN PO 04/05/17 16:15 05/05/17 16:14 Nitroglycerin (Nitrostat Tab) 0.4 mg UD PRN SL 04/05/17 16:15 05/05/17 16:14 Insulin Aspart (novoLOG ASPART) SLIDING SCALE If C... ACHS SC 04/05/17 16:00 05/05/17 15:59 04/12/17 07:49 14 UNITS Glucose (Glucose 40% Gel) 15-30 GRAMS 15 GRAMS... UD PRN PO 04/05/17 16:30 05/05/17 16:29 Glucose (Glucose Chew Tab) 4-8 Tablets 4 Tabl... UD PRN PO 04/05/17 16:30 05/05/17 16:29 Dextrose (Dextrose 50% 50ML Syringe) 25-50ML OF 50% DW IV FOR... UD PRN IV 04/05/17 16:30 05/05/17 16:29 Glucagon (Glucagon Inj) 1 mg UD PRN SQ 04/05/17 16:30 05/05/17 16:29 Miscellaneous Information (Consult Glycemic Management Pharmacy) 1 ea UD PRN N/A 04/05/17 17:05 05/05/17 17:04 Albuterol (Ventolin Hfa Inhaler) 2 puffs Q6H PRN INH 04/05/17 16:30 05/05/17 16:29 Allopurinol (Zyloprim Tab) 450 mg QAM PO 04/06/17 09:00 05/06/17 08:59 04/12/17 07:45 450 MG Cyclobenzaprine HCl (Flexeril Tab) 10 mg TID PRN PO 04/05/17 16:30 05/05/17 16:29 Doxycycline Hyclate (Vibramycin Cap) 100 mg BID PO 04/05/17 21:00 04/15/17 20:59 04/12/17 07:45 100 MG Gabapentin (Neurontin Cap) 300 mg TID PO 04/05/17 21:00 05/05/17 20:59 04/12/17 07:45 300 MG Acetaminophen/ Hydrocodone Bitart ([place] 5/325 Tab) 1 tab TID PRN PO 04/05/17 16:30 04/19/17 16:29 04/08/17 23:24 1 TAB Isosorbide Mononitrate (Imdur Ext Rel Tab) 60 mg QAM PO 04/06/17 09:00 05/06/17 08:59 04/12/17 07:46 60 MG Metoprolol Tartrate (Lopressor Tab) 50 mg BID PO 04/05/17 21:00 05/05/17 20:59 04/12/17 07:46 50 MG Mirtazapine (Remeron Solutab) 15 mg HS PO 04/05/17 21:00 05/05/17 20:59 04/11/17 20:27 15 MG Prednisone (PredniSONE TAB) 5 mg DAILY PO 04/06/17 09:00 05/06/17 08:59 04/12/17 07:45 5 MG Rosuvastatin Calcium (Crestor Tab) 10 mg QPM PO 04/05/17 21:00 05/05/17 20:59 04/11/17 20:26 10 MG Pantoprazole Sodium (Protonix Tab) 40 mg BID PO 04/05/17 21:00 05/05/17 20:59 04/12/17 07:46 40 MG Furosemide 60 mg/ Syringe 6 ml @ 4 mls/min BID17 IV 04/06/17 09:00 05/06/17 08:59 04/11/17 17:38 4 MLS/MIN Potassium Chloride (Klor-Con Tab) 20 meq BID PO 04/07/17 11:00 05/07/17 10:59 04/12/17 07:46 20 MEQ Insulin Glargine (Lantus Solostar Pen) Q12 SC 04/11/17 21:00 05/11/17 20:59 04/12/17 07:50 10 UNITS Warfarin Sodium (Coumadin Tab) 10 mg DAILY@16 PO 04/12/17 16:00 05/12/17 15:59 Objective Vital Signs Date Time Temp Pulse Resp B/P (MAP) Pulse Ox O2 Delivery O2 Flow Rate FiO2 04/12/17 04:00 CPAP 04/12/17 03:35 37.0 66 23 103/54 (70) 95 CPAP 04/11/17 23:59 CPAP 04/11/17 23:38 36.5 79 23 114/55 (74) 95 CPAP 04/11/17 21:23 68 98 21 04/11/17 20:00 CPAP 04/11/17 19:13 37.1 69 15 119/60 (79) 92 Room Air 04/11/17 18:19 36.4 67 19 134/74 (94) 93 Room Air 04/11/17 16:00 Room Air 04/11/17 12:35 36.7 67 17 115/64 (81) 96 Room Air 04/11/17 12:00 Room Air Physical Exam General Appearance: no apparent distress, + obese Respiratory/Chest: chest non-tender, lungs clear, normal breath sounds, no respiratory distress, no accessory muscle use Cardiovascular: no murmur, + irregularly irregular Abdomen: normal bowel sounds, non tender, + distended Extremities: + swelling, + pertinent finding (+1-2 pitting edema b/l LE; dressed) Laboratory Results Last 24 Hours Test 04/11/17 11:21 04/11/17 16:18 04/11/17 20:02 04/12/17 05:45 Bedside Glucose 127 mg/dl 172 mg/dl 228 mg/dl White Blood Count 6.39 K/uL Red Blood Count 3.65 M/uL Hemoglobin 11.1 g/dL Hematocrit 34.7 % Mean Corpuscular Volume 95.1 fL Mean Corpuscular Hemoglobin 30.4 pg Mean Corpuscular Hemoglobin Concent 32.0 g/dl RDW Standard Deviation 64.8 fL RDW Coefficient of Variation 18.7 % Platelet Count 121 K/uL Mean Platelet Volume 9.5 fL Prothrombin Time 16.4 SECONDS Prothromb Time International Ratio 1.6 Sodium Level 142 mmol/L Potassium Level 3.6 mmol/L Chloride Level 105 mmol/L Carbon Dioxide Level 27 mmol/L Anion Gap 10.0 mmol/L Blood Urea Nitrogen 46 mg/dl Creatinine 1.71 mg/dl Est Creatinine Clear Calc Drug Dose 52.3 ml/min Estimated GFR () 42.6 Estimated GFR (Non- 36.7 BUN/Creatinine Ratio 26.8 Random Glucose 100 mg/dl Calcium Level 8.8 mg/dl Magnesium Level 2.1 mg/dl Test 04/12/17 06:55 04/12/17 07:30 Bedside Glucose 109 mg/dl 96 mg/dl Assessment and Plan This is an 81 year old male with a PMH of CAD s/p CABG, ischemic cardiomyopathy and systolic CHF with EF around 30-35%, chronic atrial fibrillation on long- term anticoagulation, insulin dependent DM2, CKD stage 3, HTN, chronic lower extremity swelling/venous stasis and wound ulcerations, chronic gout on long- term steroid use, SHAUNA on CPAP - presents with worsening shortness of breath and worsening lower extremity edema. Acute on Chronic Systolic CHF Ischemic Cardiomyopathy 04/12 would continue IV Lasix 60mg BID for now continue to monitor I's and O's monitor creat appreciate nephrology and cardiology input 04/11 LVEF of around 30-35% with multiple areas of hypokinesis on last echo in December 2016 takes a high dose of diuretics at home (Lasix 80mg BID) presented here and was started on IV Lasix 60mg BID JUSTIN-I held due to kidney function appreciate cardiology and nephrology input on 04/11 - will hold AM dose of Lasix, monitor bicarb levels may need to switch to oral diuretics, will await further input from cardiology Chronic Atrial Fibrillation on long-term Coumadin, with a goal INR of 2-3 currently subtherapeutic; dose of Coumadin increased to 7.5mg for tonight, will increase to 10mg tomorrow (04/12) CAD hx. of CABG x5 no acute issues will continue Imdur, statin, b-leah Venous Stasis Ulcerations patient sees wound care as outpatient was started on doxycycline as outpatient due to possible infection will need to stay on doxy until at least the end of the week further input as per wound care Insulin Dependent DM2 well controlled; Ha1c = 6.0% currently held his NPH 70/30 will continue current dose of Lantus and sliding scale on discharge: back to home dose Chronic Gout patient on long-term prednisone for prophylaxis should see rheumatology regarding stopping this as it is likely making his lower extremity edema worse for now, continue low dose, 5mg of prednisone HTN blood pressure stable will consider adding back JUSTIN-I due to DM2, CHF CKD stage 3 creatinine up to 1.8, but close to baseline appreciate nephrology input DVT ppx Coumadin FULL CODE
--- NOTE | 2017-04-12 09:36 | Cardiology Follow-Up ---
Subjective General Date of Service: Apr 12, 2017. Chief Complaint: edema/SOB Pt evaluation today including: conversation w/ patient, physical exam, chart review, lab review, review of studies, conversation w/ decorator consultant (case management), review of inpatient medication list History of Present Illness Patient reports he is starting feel better. SOB/dyspnea improving. Edema improving. "almost at baseline" per patient. Denies orthopnea. Denies palpitations or dizziness. Cough improving. No fever or chills. Allergies Coded Allergies: NO KNOWN DRUG ALLERGIES (Verified Allergy, Unknown, ., 04/05/17) Social History Hx Tobacco Use In Past Year?: No Hx Alcohol Use - Type And Amou: No Hx Substance Use - Type And Am: No Problem List Medical Problems: (1) A-fib Status: Acute (2) Abnormal ECG Status: Acute (3) Acute electrocardiogram changes Status: Acute (4) Acute electrocardiogram changes Status: Acute (5) Acute kidney injury Status: Acute (6) Acute renal failure Status: Acute (7) Anemia Status: Acute (8) Atrial fibrillation with RVR Status: Acute (9) CHF (congestive heart failure) Status: Acute (10) CHF (congestive heart failure) Status: Acute (11) Dysphagia Status: Acute (12) Edema Status: Acute (13) Elevated troponin Status: Acute (14) Hyperglycemia Status: Acute (15) Hypoglycemia Status: Acute (16) Hypoglycemia Status: Acute (17) Hypoglycemia Status: Acute (18) Hypoxia Status: Acute (19) Insulin dependent diabetes mellitus Status: Acute (20) Jaw pain Status: Acute (21) NSTEMI (non-ST elevated myocardial infarction) Status: Acute (22) Right leg pain Status: Acute (23) Shortness of breath Status: Acute (24) Supratherapeutic INR Status: Acute Review of Systems Respiratory: + dyspnea on exertion, No cough, No sputum, No wheezing, No dyspnea at rest Cardiac: + edema, No chest pain, No orthopnea, No PND, No palpitations Physical Exam Vital Signs Last Vital Signs Documentation Date Time Temp Pulse Resp B/P (MAP) Pulse Ox O2 Delivery O2 Flow Rate FiO2 04/12/17 08:52 36.3 71 20 135/69 (91) 94 04/12/17 04:00 CPAP 04/11/17 21:23 21 04/11/17 04:00 2.0 Physical Exam Constitutional: General Apperance: obese Level of Distress: NAD, chronically ill Psychiatric: Mental Status: active & alert Orientation: to time, to place, to person Head: normocephalic, atraumatic Eyes: Pupils: PERRLA Neck: supple, pertinent finding (No overt JVD observed. Note: Patient examined in a chair) Lungs: Auscultation: no wheezing, no rales/crackles, no rhonchi, deminished air movement, decreased breath sounds Cardiovascular: Heart Auscultation: no murmurs, no rubs, irregular rate rhythm Peripheral Pulses: Radial Pulse: normal on the left, normal on the right Dorsalis Pedis Pulse: absent on the left, absent on the right Abdomen: Bowel Sounds: normal Inspection & Palpation: distended Extremities: no cyanosis, edema (1-2+ edema to thighs b/l), ulcers Neurologic: Cranial Nerves: grossly intact Assessment and Plan Assessment and Plan Impression: 81-year-old male Acute on chronic right greater than left biventricular congestive heart failure signs and symptoms Chronic ischemic cardiomyopathy, LVEF 30-35% most recent echocardiogram in 2017 Chronic kidney disease Chronic rate controlled atrial fibrillation on telemetry, occasional PVC Non sustained VT, non sustained, during times of presumed sleeping. Asymptomatic. Plan: Labs improved this AM, Bicarb trending down. Creatinine continues to improve. Clinically patient improving, nearly at baseline. Continue IV diuretics again today. Consider transitioning to oral furosemide tomorrow pending lab review and nephrology input. . Monitor electrolytes. Continue potassium. continue CPAP at night Continue metoprolol Continue Coumadin, INR is at goal at 2. INR subtherapeutic. Dose increased to 7.5 mg yesterday, 10 mg today. Discussion with case management regarding disposition on discharge. Patient wishes to return home. He has caregivers 6 days per week for 8 hours, services in place. Patient declining rehab. PT/OT evaluations were acceptable to return home per notes. Ok to transfer off telemetry. Anticipate discharge in 1-2 days. Case discussed with Dr. Alexandra. Will follow. Laboratory Results Last 24 Hours Test 04/11/17 11:21 04/11/17 16:18 04/11/17 20:02 04/12/17 05:45 Bedside Glucose 127 mg/dl 172 mg/dl 228 mg/dl White Blood Count 6.39 K/uL Red Blood Count 3.65 M/uL Hemoglobin 11.1 g/dL Hematocrit 34.7 % Mean Corpuscular Volume 95.1 fL Mean Corpuscular Hemoglobin 30.4 pg Mean Corpuscular Hemoglobin Concent 32.0 g/dl RDW Standard Deviation 64.8 fL RDW Coefficient of Variation 18.7 % Platelet Count 121 K/uL Mean Platelet Volume 9.5 fL Prothrombin Time 16.4 SECONDS Prothromb Time International Ratio 1.6 Sodium Level 142 mmol/L Potassium Level 3.6 mmol/L Chloride Level 105 mmol/L Carbon Dioxide Level 27 mmol/L Anion Gap 10.0 mmol/L Blood Urea Nitrogen 46 mg/dl Creatinine 1.71 mg/dl Est Creatinine Clear Calc Drug Dose 52.3 ml/min Estimated GFR () 42.6 Estimated GFR (Non- 36.7 BUN/Creatinine Ratio 26.8 Random Glucose 100 mg/dl Calcium Level 8.8 mg/dl Magnesium Level 2.1 mg/dl Test 04/12/17 06:55 04/12/17 07:30 Bedside Glucose 109 mg/dl 96 mg/dl
[2017-04-12] MEDS: FUROSEMIDE INJ 60 MG in SYRINGE 0 ML IV SCH ×2 (09:55→18:44)
--- NOTE | 2017-04-12 09:57 | Nephrology Progress Note ---
Nephrology Progress Note Date of Service: Apr 12, 2017. Subjective 81 yo male with yamel/volume overload/hx of recent cellulitis who overall is doing much better. continues to feel better each day. oob to chair. pleased with his progress. Objective Date Time Temp Pulse Resp B/P (MAP) Pulse Ox O2 Delivery O2 Flow Rate FiO2 04/12/17 08:52 36.3 71 20 135/69 (91) 94 04/12/17 08:00 CPAP 04/12/17 04:00 CPAP 04/12/17 03:35 37.0 66 23 103/54 (70) 95 CPAP 04/11/17 23:59 CPAP 04/11/17 23:38 36.5 79 23 114/55 (74) 95 CPAP 04/11/17 21:23 68 98 21 04/11/17 20:00 CPAP 04/11/17 19:13 37.1 69 15 119/60 (79) 92 Room Air 04/11/17 18:19 36.4 67 19 134/74 (94) 93 Room Air 04/11/17 16:00 Room Air 04/11/17 12:35 36.7 67 17 115/64 (81) 96 Room Air 04/11/17 12:00 Room Air Physical Exam: General-aaox3 Eyes-no scleral icterus ENT-mmm Neck-supple Lungs-clear Heart-irregularly irregular Abdomen-bs+/soft/nontender Extremities-+1 to 2 edema/wrapped Neuro-nonfocal Current Inpatient Medications Medications (Trade) Dose Ordered Sig/Aileen Route Start Time Stop Time Status Last Admin Dose Admin Acetaminophen (Tylenol Tab) 650 mg Q4H PRN PO 04/05/17 16:15 05/05/17 16:14 Magnesium Hydroxide (Milk Of Magnesia Susp) 30 ml Q12H PRN PO 04/05/17 16:15 05/05/17 16:14 Nitroglycerin (Nitrostat Tab) 0.4 mg UD PRN SL 04/05/17 16:15 05/05/17 16:14 Insulin Aspart (novoLOG ASPART) SLIDING SCALE If C... ACHS SC 04/05/17 16:00 05/05/17 15:59 04/12/17 07:49 14 UNITS Glucose (Glucose 40% Gel) 15-30 GRAMS 15 GRAMS... UD PRN PO 04/05/17 16:30 05/05/17 16:29 Glucose (Glucose Chew Tab) 4-8 Tablets 4 Tabl... UD PRN PO 04/05/17 16:30 05/05/17 16:29 Dextrose (Dextrose 50% 50ML Syringe) 25-50ML OF 50% DW IV FOR... UD PRN IV 04/05/17 16:30 05/05/17 16:29 Glucagon (Glucagon Inj) 1 mg UD PRN SQ 04/05/17 16:30 05/05/17 16:29 Miscellaneous Information (Consult Glycemic Management Pharmacy) 1 ea UD PRN N/A 04/05/17 17:05 05/05/17 17:04 Albuterol (Ventolin Hfa Inhaler) 2 puffs Q6H PRN INH 04/05/17 16:30 05/05/17 16:29 Allopurinol (Zyloprim Tab) 450 mg QAM PO 04/06/17 09:00 05/06/17 08:59 04/12/17 07:45 450 MG Cyclobenzaprine HCl (Flexeril Tab) 10 mg TID PRN PO 04/05/17 16:30 05/05/17 16:29 Doxycycline Hyclate (Vibramycin Cap) 100 mg BID PO 04/05/17 21:00 04/15/17 20:59 04/12/17 07:45 100 MG Gabapentin (Neurontin Cap) 300 mg TID PO 04/05/17 21:00 05/05/17 20:59 04/12/17 07:45 300 MG Acetaminophen/ Hydrocodone Bitart ([place] 5/325 Tab) 1 tab TID PRN PO 04/05/17 16:30 04/19/17 16:29 04/08/17 23:24 1 TAB Isosorbide Mononitrate (Imdur Ext Rel Tab) 60 mg QAM PO 04/06/17 09:00 05/06/17 08:59 04/12/17 07:46 60 MG Metoprolol Tartrate (Lopressor Tab) 50 mg BID PO 04/05/17 21:00 05/05/17 20:59 04/12/17 07:46 50 MG Mirtazapine (Remeron Solutab) 15 mg HS PO 04/05/17 21:00 05/05/17 20:59 04/11/17 20:27 15 MG Prednisone (PredniSONE TAB) 5 mg DAILY PO 04/06/17 09:00 05/06/17 08:59 04/12/17 07:45 5 MG Rosuvastatin Calcium (Crestor Tab) 10 mg QPM PO 04/05/17 21:00 05/05/17 20:59 04/11/17 20:26 10 MG Pantoprazole Sodium (Protonix Tab) 40 mg BID PO 04/05/17 21:00 05/05/17 20:59 04/12/17 07:46 40 MG Furosemide 60 mg/ Syringe 6 ml @ 4 mls/min BID17 IV 04/06/17 09:00 05/06/17 08:59 04/11/17 17:38 4 MLS/MIN Potassium Chloride (Klor-Con Tab) 20 meq BID PO 04/07/17 11:00 05/07/17 10:59 04/12/17 07:46 20 MEQ Insulin Glargine (Lantus Solostar Pen) Q12 SC 04/11/17 21:00 05/11/17 20:59 04/12/17 07:50 10 UNITS Warfarin Sodium (Coumadin Tab) 10 mg DAILY@16 PO 04/12/17 16:00 05/12/17 15:59 Last 24 Hours Test 04/11/17 11:21 04/11/17 16:18 04/11/17 20:02 04/12/17 05:45 Bedside Glucose 127 mg/dl 172 mg/dl 228 mg/dl White Blood Count 6.39 K/uL Red Blood Count 3.65 M/uL Hemoglobin 11.1 g/dL Hematocrit 34.7 % Mean Corpuscular Volume 95.1 fL Mean Corpuscular Hemoglobin 30.4 pg Mean Corpuscular Hemoglobin Concent 32.0 g/dl RDW Standard Deviation 64.8 fL RDW Coefficient of Variation 18.7 % Platelet Count 121 K/uL Mean Platelet Volume 9.5 fL Prothrombin Time 16.4 SECONDS Prothromb Time International Ratio 1.6 Sodium Level 142 mmol/L Potassium Level 3.6 mmol/L Chloride Level 105 mmol/L Carbon Dioxide Level 27 mmol/L Anion Gap 10.0 mmol/L Blood Urea Nitrogen 46 mg/dl Creatinine 1.71 mg/dl Est Creatinine Clear Calc Drug Dose 52.3 ml/min Estimated GFR () 42.6 Estimated GFR (Non- 36.7 BUN/Creatinine Ratio 26.8 Random Glucose 100 mg/dl Calcium Level 8.8 mg/dl Magnesium Level 2.1 mg/dl Test 04/12/17 06:55 04/12/17 07:30 Bedside Glucose 109 mg/dl 96 mg/dl Assessment & Plan YAMEL on ckd-creatinine under 2 and tolerating the current diuretics. on lasix 60 iv bid. continue current diuretics. was concerned with the bicarb of 33 that we might be reaching an end point with the iv diuresis however today, the bicarb is improved to 27. discussed further with cardiology and we both agree to continue the present course of iv diuretics.
--- NOTE | 2017-04-12 15:40 | Pharmacy Progress Note ---
Glycemic: Assessment & Plan Date of Service Apr 12, 2017. Assessment & Plan Assessment * BSG's ranging 96-228 mg/dL over the last 24 hours * AM fasting BSG low, likely 2nd effects of AM prednisone wearing off overnight - will decrease Lantus * Post-prandial BSG increases likely 2nd effects of AM prednisone on post- prandial BSG's during the day - will tighten CHO ratio Plan * Decrease Basal insulin: Lantus q12h based on BSG as follows * 10 units for BSG less than 100 mg/dL, * 14 units for BSG greater than 100 mg/dL * Correctional Insulin: Novolog Correction per scale ACHS Goal Range: Low 110 mg/dL - High 140 mg/dL Correction Factor: 12 mg/dL/unit * Tighten Prandial insulin: Per carb ratio of 1 unit per 3 grams CHO consumed Pharmacy will continue to monitor patient daily and write orders per [facility] inpatient glycemic control protocol. Thanks. * Please note that the plan above was derived based on current level of insulin resistance and hospital stress. These recommendations are appropriate for inpatient admission only. Plan of care upon discharge will need to be reassessed to avoid potential outpatient hypo/hyperglycemia.
[2017-04-12] MEDS ORDERED: WARFARIN SOD 10 MG TAB PO SCH (16:00)
[2017-04-12] MEDS: ROSUVASTATIN CALCIUM 10 MG TAB PO SCH (21:11)
[2017-04-12] MEDS: MIRTAZAPINE SOLTAB 15 MG PO SCH (21:12)
[2017-04-13 03:40] VITALS: BP 112/68; PULSE 74; TEMP 36.3; O2SAT 96
[2017-04-13 06:36] LABS: HEMOGLOBIN 11.1 g/dL (14.0-18.0); MEAN CELL VOLUME 95.5 fL (80-100); MEAN CORPUSCULAR HEMOGLOBIN 29.4 pg (25-34); MEAN CORPUSCULAR HGB CONC 30.8 g/dl (32-36); MEAN PLATELET VOLUME 9.9 fL (7.4-10.4); PLATELET COUNT 115 K/uL (130-400); RED CELL DISTRIBUTION WIDTH CV 18.3 % (11.5-14.5); RED CELL DISTRIBUTION WIDTH SD 63.4 fL (36.4-46.3)
[2017-04-13 06:45] LABS: INR 1.5 (0.9-1.1)
[2017-04-13 07:08] LABS: CALCIUM 8.7 mg/dl (8.5-10.1); CREATININE 1.74 mg/dl (0.60-1.40); POTASSIUM 3.5 mmol/L (3.5-5.1)
[2017-04-13 07:50] VITALS: BP 125/58; PULSE 58; TEMP 36.3; O2SAT 97
[2017-04-13] MEDS: FUROSEMIDE INJ 60 MG in SYRINGE 0 ML IV SCH ×2 (08:25→16:31)
[2017-04-13] MEDS: ALLOPURINOL 300 MG TAB PO SCH (08:25)
[2017-04-13] MEDS: PANTOprazole SOD 40 MG TAB PO SCH ×2 (08:25→20:28)
[2017-04-13] MEDS: DOXYCYCLINE HYCLATE 100 MG CAP PO SCH ×2 (08:25→20:30)
[2017-04-13] MEDS: ISOSORBIDE MONONITRATE 60 MG TABCR PO SCH (08:26)
[2017-04-13] MEDS: GABAPENTIN 300 MG CAP PO SCH ×3 (08:26→20:31)
[2017-04-13] MEDS: METOPROLOL TARTRATE 50 MG TAB PO SCH ×2 (08:27→20:28)
[2017-04-13] MEDS: POTASSIUM CHLORIDE 20 MEQ TABCR PO SCH ×2 (08:27→20:29)
[2017-04-13] MEDS ORDERED: POTASSIUM CHLORIDE 20 MEQ TABCR PO ONE (08:30)
[2017-04-13] MEDS: INSULIN ASPART 100 UNITS/ML 3 ML PEN SC SCH ×4 (08:31→20:30)
[2017-04-13] MEDS: INSULIN HUMAN NPH SC SCH ×2 (08:32→17:57)
--- NOTE | 2017-04-13 09:13 | Progress Note ---
Subjective Date of Service: Apr 13, 2017. Subjective Pt evaluation today including: conversation w/ patient, physical exam, lab review, review of studies, review of inpatient medication list Saw/examined the patient in room 206 He's doing good; stable states he was discharged too early last time and is not quite ready to go yet Denies chest pain/shortness of breath/palpitations Denies nausea/vomiting Problem List Medical Problems: (1) A-fib Status: Acute (2) Abnormal ECG Status: Acute (3) Acute electrocardiogram changes Status: Acute (4) Acute electrocardiogram changes Status: Acute (5) Acute kidney injury Status: Acute (6) Acute renal failure Status: Acute (7) Anemia Status: Acute (8) Atrial fibrillation with RVR Status: Acute (9) CHF (congestive heart failure) Status: Acute (10) CHF (congestive heart failure) Status: Acute (11) Dysphagia Status: Acute (12) Edema Status: Acute (13) Elevated troponin Status: Acute (14) Hyperglycemia Status: Acute (15) Hypoglycemia Status: Acute (16) Hypoglycemia Status: Acute (17) Hypoglycemia Status: Acute (18) Hypoxia Status: Acute (19) Insulin dependent diabetes mellitus Status: Acute (20) Jaw pain Status: Acute (21) NSTEMI (non-ST elevated myocardial infarction) Status: Acute (22) Right leg pain Status: Acute (23) Shortness of breath Status: Acute (24) Supratherapeutic INR Status: Acute Review of Systems Respiratory: + shortness of breath, No cough, No sputum Cardiac: + edema, No chest pain, No palpitations Medications Current Inpatient Medications Medications (Trade) Dose Ordered Sig/Aileen Route Start Time Stop Time Status Last Admin Dose Admin Acetaminophen (Tylenol Tab) 650 mg Q4H PRN PO 04/05/17 16:15 05/05/17 16:14 Magnesium Hydroxide (Milk Of Magnesia Susp) 30 ml Q12H PRN PO 04/05/17 16:15 05/05/17 16:14 Nitroglycerin (Nitrostat Tab) 0.4 mg UD PRN SL 04/05/17 16:15 05/05/17 16:14 Insulin Aspart (novoLOG ASPART) SLIDING SCALE If C... ACHS SC 04/05/17 16:00 05/05/17 15:59 04/13/17 08:31 16 UNITS Glucose (Glucose 40% Gel) 15-30 GRAMS 15 GRAMS... UD PRN PO 04/05/17 16:30 05/05/17 16:29 Glucose (Glucose Chew Tab) 4-8 Tablets 4 Tabl... UD PRN PO 04/05/17 16:30 05/05/17 16:29 Dextrose (Dextrose 50% 50ML Syringe) 25-50ML OF 50% DW IV FOR... UD PRN IV 04/05/17 16:30 05/05/17 16:29 Glucagon (Glucagon Inj) 1 mg UD PRN SQ 04/05/17 16:30 05/05/17 16:29 Miscellaneous Information (Consult Glycemic Management Pharmacy) 1 ea UD PRN N/A 04/05/17 17:05 05/05/17 17:04 Albuterol (Ventolin Hfa Inhaler) 2 puffs Q6H PRN INH 04/05/17 16:30 05/05/17 16:29 Allopurinol (Zyloprim Tab) 450 mg QAM PO 04/06/17 09:00 05/06/17 08:59 04/13/17 08:25 450 MG Cyclobenzaprine HCl (Flexeril Tab) 10 mg TID PRN PO 04/05/17 16:30 05/05/17 16:29 Doxycycline Hyclate (Vibramycin Cap) 100 mg BID PO 04/05/17 21:00 04/15/17 20:59 04/13/17 08:25 100 MG Gabapentin (Neurontin Cap) 300 mg TID PO 04/05/17 21:00 05/05/17 20:59 04/13/17 08:26 300 MG Acetaminophen/ Hydrocodone Bitart ([place] 5/325 Tab) 1 tab TID PRN PO 04/05/17 16:30 04/19/17 16:29 04/08/17 23:24 1 TAB Isosorbide Mononitrate (Imdur Ext Rel Tab) 60 mg QAM PO 04/06/17 09:00 05/06/17 08:59 04/13/17 08:26 60 MG Metoprolol Tartrate (Lopressor Tab) 50 mg BID PO 04/05/17 21:00 05/05/17 20:59 04/13/17 08:27 50 MG Mirtazapine (Remeron Solutab) 15 mg HS PO 04/05/17 21:00 05/05/17 20:59 04/12/17 21:12 15 MG Prednisone (PredniSONE TAB) 5 mg DAILY PO 04/06/17 09:00 05/06/17 08:59 04/13/17 08:26 5 MG Rosuvastatin Calcium (Crestor Tab) 10 mg QPM PO 04/05/17 21:00 05/05/17 20:59 04/12/17 21:11 10 MG Pantoprazole Sodium (Protonix Tab) 40 mg BID PO 04/05/17 21:00 05/05/17 20:59 04/13/17 08:25 40 MG Furosemide 60 mg/ Syringe 6 ml @ 4 mls/min BID17 IV 04/06/17 09:00 05/06/17 08:59 04/13/17 08:25 4 MLS/MIN Potassium Chloride (Klor-Con Tab) 20 meq BID PO 04/07/17 11:00 05/07/17 10:59 04/13/17 08:27 20 MEQ Warfarin Sodium (Coumadin Tab) 10 mg DAILY@16 PO 04/12/17 16:00 05/12/17 15:59 Future hold 04/12/17 16:05 10 MG Insulin Human NPH (novoLIN-N NPH) BIDM SC 04/13/17 07:30 05/13/17 07:29 04/13/17 08:32 12 UNITS Warfarin Sodium (Coumadin Tab) 3 mg TODAY@1600 PO 04/13/17 16:00 04/13/17 18:00 Objective Vital Signs Date Time Temp Pulse Resp B/P (MAP) Pulse Ox O2 Delivery O2 Flow Rate FiO2 04/13/17 07:50 36.3 58 18 125/58 (80) 97 CPAP 04/13/17 04:00 CPAP 2.0 04/13/17 03:40 36.3 74 19 112/68 (83) 96 CPAP 04/13/17 00:00 CPAP 2.0 04/12/17 23:48 36.6 71 22 111/54 (73) 93 CPAP 04/12/17 22:27 74 95 2.0 04/12/17 20:23 CPAP 04/12/17 19:14 36.5 72 18 119/55 (76) 93 Room Air 04/12/17 17:19 CPAP 2/28/18 16:18 78 18 130/77 (94) 93 Room Air 04/12/17 12:00 CPAP 04/12/17 11:50 36.9 65 18 109/60 (76) 94 Room Air Physical Exam General Appearance: no apparent distress Respiratory/Chest: no respiratory distress, no accessory muscle use, + decreased breath sounds Cardiovascular: no murmur, + irregularly irregular Extremities: + pedal edema, + swelling (+1-2 pitting edema) Neurologic/Psychiatric: no motor/sensory deficits, alert, normal mood/affect Laboratory Results Last 24 Hours Test 04/12/17 11:09 04/12/17 16:19 04/12/17 20:07 04/13/17 06:10 Bedside Glucose 136 mg/dl 236 mg/dl 299 mg/dl White Blood Count 6.70 K/uL Red Blood Count 3.77 M/uL Hemoglobin 11.1 g/dL Hematocrit 36.0 % Mean Corpuscular Volume 95.5 fL Mean Corpuscular Hemoglobin 29.4 pg Mean Corpuscular Hemoglobin Concent 30.8 g/dl RDW Standard Deviation 63.4 fL RDW Coefficient of Variation 18.3 % Platelet Count 115 K/uL Mean Platelet Volume 9.9 fL Prothrombin Time 16.1 SECONDS Prothromb Time International Ratio 1.5 Sodium Level 142 mmol/L Potassium Level 3.5 mmol/L Chloride Level 106 mmol/L Carbon Dioxide Level 28 mmol/L Anion Gap 7.0 mmol/L Blood Urea Nitrogen 47 mg/dl Creatinine 1.74 mg/dl Est Creatinine Clear Calc Drug Dose 51.3 ml/min Estimated GFR () 41.7 Estimated GFR (Non- 36.0 BUN/Creatinine Ratio 27.0 Random Glucose 67 mg/dl Calcium Level 8.7 mg/dl Magnesium Level 2.1 mg/dl Test 04/13/17 06:27 Bedside Glucose 77 mg/dl Assessment and Plan This is an 81 year old male with a PMH of CAD s/p CABG, ischemic cardiomyopathy and systolic CHF with EF around 30-35%, chronic atrial fibrillation on long- term anticoagulation, insulin dependent DM2, CKD stage 3, HTN, chronic lower extremity swelling/venous stasis and wound ulcerations, chronic gout on long- term steroid use, SHAUNA on CPAP - presents with worsening shortness of breath and worsening lower extremity edema. Acute on Chronic Systolic CHF Ischemic Cardiomyopathy 04/13 appreciate cardiology input labs are holding up, patient does not feel quite right to be discharged for now, will keep IV Lasix dose on discharge, can be placed back on Lasix PO 80mg BID can be transferred off of tele 04/12 would continue IV Lasix 60mg BID for now continue to monitor I's and O's monitor creat appreciate nephrology and cardiology input 04/11 LVEF of around 30-35% with multiple areas of hypokinesis on last echo in December 2016 takes a high dose of diuretics at home (Lasix 80mg BID) presented here and was started on IV Lasix 60mg BID JUSTIN-I held due to kidney function appreciate cardiology and nephrology input on 04/11 - will hold AM dose of Lasix, monitor bicarb levels may need to switch to oral diuretics, will await further input from cardiology Chronic Atrial Fibrillation 04/13 will give an extra dose of 3mg of Coumadin continue 10mg of Coumadin tonight to total 13mg goal INR of 2-3 04/12 on long-term Coumadin, with a goal INR of 2-3 currently subtherapeutic; dose of Coumadin increased to 7.5mg for tonight, will increase to 10mg tomorrow (04/12) CAD hx. of CABG x5 no acute issues will continue Imdur, statin, b-leah Venous Stasis Ulcerations patient sees wound care as outpatient was started on doxycycline as outpatient due to possible infection will need to stay on doxy until at least the end of the week further input as per wound care Insulin Dependent DM2 04/13 appreciate glycemic control assistance patient has been labile with his BSGs, worsened by steroid use basal insulin dose decreased carb ratio has been tightened, will monitor 04/11 well controlled; Ha1c = 6.0% currently held his NPH 70/30 will continue current dose of Lantus and sliding scale on discharge: back to home dose Chronic Gout patient on long-term prednisone for prophylaxis should see rheumatology regarding stopping this as it is likely making his lower extremity edema worse for now, continue low dose, 5mg of prednisone HTN blood pressure stable will consider adding back JUSTIN-I due to DM2, CHF CKD stage 3 creatinine up to 1.8, but close to baseline appreciate nephrology input DVT ppx Coumadin FULL CODE
[2017-04-13 10:50] VITALS: BP 125/58; PULSE 58; TEMP 36.3; O2SAT 97
--- NOTE | 2017-04-13 11:13 | Cardiology Follow-Up ---
Subjective General Date of Service: Apr 13, 2017. Chief Complaint: edema/SOB Pt evaluation today including: conversation w/ patient, physical exam, chart review, lab review, review of studies, review of inpatient medication list History of Present Illness Patient feeling better. Not at baseline. States he is not ready to go home yet. Adamantly refuses rehab after discharge. Edema improving. SOB improving. No chest pain. No dizziness. Notes dyspnea with ambulation to restroom. Allergies Coded Allergies: NO KNOWN DRUG ALLERGIES (Verified Allergy, Unknown, ., 04/05/17) Social History Hx Tobacco Use In Past Year?: No Hx Alcohol Use - Type And Amou: No Hx Substance Use - Type And Am: No Problem List Medical Problems: (1) A-fib Status: Acute (2) Abnormal ECG Status: Acute (3) Acute electrocardiogram changes Status: Acute (4) Acute electrocardiogram changes Status: Acute (5) Acute kidney injury Status: Acute (6) Acute renal failure Status: Acute (7) Anemia Status: Acute (8) Atrial fibrillation with RVR Status: Acute (9) CHF (congestive heart failure) Status: Acute (10) CHF (congestive heart failure) Status: Acute (11) Dysphagia Status: Acute (12) Edema Status: Acute (13) Elevated troponin Status: Acute (14) Hyperglycemia Status: Acute (15) Hypoglycemia Status: Acute (16) Hypoglycemia Status: Acute (17) Hypoglycemia Status: Acute (18) Hypoxia Status: Acute (19) Insulin dependent diabetes mellitus Status: Acute (20) Jaw pain Status: Acute (21) NSTEMI (non-ST elevated myocardial infarction) Status: Acute (22) Right leg pain Status: Acute (23) Shortness of breath Status: Acute (24) Supratherapeutic INR Status: Acute Review of Systems Respiratory: + shortness of breath, + dyspnea on exertion, No cough, No sputum Cardiac: + edema, No chest pain, No orthopnea, No palpitations Physical Exam Vital Signs Last Vital Signs Documentation Date Time Temp Pulse Resp B/P (MAP) Pulse Ox O2 Delivery O2 Flow Rate FiO2 04/13/17 08:10 Room Air 04/13/17 07:50 36.3 58 18 125/58 (80) 97 04/13/17 04:00 2.0 04/11/17 21:23 21 Physical Exam Constitutional: General Apperance: obese Level of Distress: NAD, chronically ill Psychiatric: Mental Status: active & alert Orientation: to time, to place, to person Head: normocephalic, atraumatic Eyes: Pupils: PERRLA Neck: supple, pertinent finding (No overt JVD observed. Note: Patient examined in a chair) Lungs: Auscultation: no wheezing, no rales/crackles, no rhonchi, deminished air movement, decreased breath sounds Cardiovascular: Heart Auscultation: no murmurs, no rubs, irregular rate rhythm Peripheral Pulses: Radial Pulse: normal on the left, normal on the right Dorsalis Pedis Pulse: absent on the left, absent on the right Abdomen: Bowel Sounds: normal Inspection & Palpation: distended Extremities: no cyanosis, edema (1+ edema to knees), ulcers Neurologic: Cranial Nerves: grossly intact Assessment and Plan Assessment and Plan Impression: 81-year-old male Acute on chronic right greater than left biventricular congestive heart failure signs and symptoms Chronic ischemic cardiomyopathy, LVEF 30-35% most recent echocardiogram in 2017 Chronic kidney disease Chronic rate controlled atrial fibrillation on telemetry, occasional PVC Non sustained VT, non sustained, during times of presumed sleeping. Asymptomatic. Plan: Labs stable. Tolerating ongoing IV diuretics with improvement. Creatinine continues to improve. Clinically patient improving, nearly at baseline. Continue IV diuretics again today. Likely transition to oral furosemide tomorrow. Home dose furosemide 80 mg BID. Monitor electrolytes. Continue potassium. continue CPAP at night Continue metoprolol Continue Coumadin, INR is at goal at 2. INR subtherapeutic. Increase Coumadin. Discussion with case management regarding disposition on discharge. Patient wishes to return home. He has caregivers 6 days per week for 8 hours, services in place. Patient declining rehab. PT/OT evaluations were acceptable to return home per notes. Ok to transfer off telemetry. Anticipate discharge in 1-2 days Stable cardiac signs/symptoms. Will sign off. Please notify carbonation tester physician with additional questions or concerns. Case discussed with Dr. Alexandra. Laboratory Results Last 24 Hours Test 04/12/17 11:09 04/12/17 16:19 04/12/17 20:07 04/13/17 06:10 Bedside Glucose 136 mg/dl 236 mg/dl 299 mg/dl White Blood Count 6.70 K/uL Red Blood Count 3.77 M/uL Hemoglobin 11.1 g/dL Hematocrit 36.0 % Mean Corpuscular Volume 95.5 fL Mean Corpuscular Hemoglobin 29.4 pg Mean Corpuscular Hemoglobin Concent 30.8 g/dl RDW Standard Deviation 63.4 fL RDW Coefficient of Variation 18.3 % Platelet Count 115 K/uL Mean Platelet Volume 9.9 fL Prothrombin Time 16.1 SECONDS Prothromb Time International Ratio 1.5 Sodium Level 142 mmol/L Potassium Level 3.5 mmol/L Chloride Level 106 mmol/L Carbon Dioxide Level 28 mmol/L Anion Gap 7.0 mmol/L Blood Urea Nitrogen 47 mg/dl Creatinine 1.74 mg/dl Est Creatinine Clear Calc Drug Dose 51.3 ml/min Estimated GFR () 41.7 Estimated GFR (Non- 36.0 BUN/Creatinine Ratio 27.0 Random Glucose 67 mg/dl Calcium Level 8.7 mg/dl Magnesium Level 2.1 mg/dl Test 04/13/17 06:27 Bedside Glucose 77 mg/dl
[2017-04-13 12:49] VITALS: BP 155/56; PULSE 61; TEMP 36.7; O2SAT 95
[2017-04-13 14:44] VITALS: BP 151/71; PULSE 75; TEMP 36.2; O2SAT 96
--- NOTE | 2017-04-13 14:48 | Pharmacy Progress Note ---
Glycemic: Assessment & Plan Date of Service Apr 13, 2017. Assessment & Plan Assessment * BSG's ranging 77-299 mg/dL over the last 24 hours * AM fasting BSG low, likely 2nd effects of AM prednisone wearing off overnight - will change basal insulin to NPH to better mimic pharmacokinetics of prednisone * Post-prandial BSG increases likely 2nd effects of AM prednisone on post- prandial BSG's during the day - anticipate that change to NPH will help, but will also tighten correction factor slightly Plan * Change Basal insulin to NPH, dosed BIDM based on BSG as follows: * 12 units for BSG less than 90 mg/dL * 16 units for BSG 90-140 mg/dL * 20 units for BSG greater than 140 mg/dL * Correctional Insulin: Novolog Correction per scale ACHS Goal Range: Low 110 mg/dL - High 140 mg/dL Tighten Correction Factor: 10 mg/dL/unit * Prandial insulin: Per carb ratio of 1 unit per 3 grams CHO consumed Pharmacy will continue to monitor patient daily and write orders per [facility] inpatient glycemic control protocol. Thanks. * Please note that the plan above was derived based on current level of insulin resistance and hospital stress. These recommendations are appropriate for inpatient admission only. Plan of care upon discharge will need to be reassessed to avoid potential outpatient hypo/hyperglycemia.
[2017-04-13] MEDS ORDERED: WARFARIN SOD 3 MG TAB PO SCH (16:00)
[2017-04-13] MEDS: ROSUVASTATIN CALCIUM 10 MG TAB PO SCH (20:29)
[2017-04-13] MEDS: MIRTAZAPINE SOLTAB 15 MG PO SCH (20:30)
[2017-04-13 22:32] VITALS: PULSE 70; O2SAT 95
[2017-04-14 00:45] VITALS: BP 132/75; PULSE 74; TEMP 36.7; O2SAT 96
[2017-04-14 07:24] LABS: HEMATOCRIT 36.4 % (42-52); HEMOGLOBIN 11.6 g/dL (14.0-18.0); MEAN CORPUSCULAR HEMOGLOBIN 30.3 pg (25-34); MEAN CORPUSCULAR HGB CONC 31.9 g/dl (32-36); MEAN PLATELET VOLUME 9.9 fL (7.4-10.4); PLATELET COUNT 118 K/uL (130-400); RED CELL DISTRIBUTION WIDTH CV 18.7 % (11.5-14.5); RED CELL DISTRIBUTION WIDTH SD 65.2 fL (36.4-46.3); WHITE BLOOD COUNT 6.85 K/uL (4.8-10.8)
[2017-04-14 07:35] LABS: INR 1.6 (0.9-1.1)
[2017-04-14 08:01] LABS: CALCIUM 9.2 mg/dl (8.5-10.1); CREATININE 1.7 mg/dl (0.60-1.40); POTASSIUM 3.5 mmol/L (3.5-5.1)
[2017-04-14 08:25] VITALS: BP 148/81; PULSE 67; TEMP 36.6; O2SAT 98
[2017-04-14] MEDS ORDERED: WARFARIN SOD 5 MG TAB PO ONE (08:30)
[2017-04-14] MEDS ORDERED: WARFARIN SOD 3 MG TAB PO ONE (08:30)
[2017-04-14] MEDS: METOPROLOL TARTRATE 50 MG TAB PO SCH ×2 (08:44→20:37)
[2017-04-14] MEDS: ISOSORBIDE MONONITRATE 60 MG TABCR PO SCH (08:44)
[2017-04-14] MEDS: POTASSIUM CHLORIDE 20 MEQ TABCR PO SCH ×2 (08:45→20:38)
[2017-04-14] MEDS: DOXYCYCLINE HYCLATE 100 MG CAP PO SCH ×2 (08:45→20:39)
[2017-04-14] MEDS: GABAPENTIN 300 MG CAP PO SCH ×3 (08:45→20:39)
[2017-04-14] MEDS: PANTOprazole SOD 40 MG TAB PO SCH ×2 (08:45→20:39)
[2017-04-14] MEDS: FUROSEMIDE INJ 60 MG in SYRINGE 0 ML IV SCH (08:46)
[2017-04-14] MEDS: ALLOPURINOL 300 MG TAB PO SCH (08:46)
[2017-04-14] MEDS: INSULIN ASPART 100 UNITS/ML 3 ML PEN SC SCH ×4 (08:50→20:47)
[2017-04-14] MEDS: INSULIN HUMAN NPH SC SCH ×3 (08:51→18:09)
[2017-04-14 10:44] VITALS: Ht 374.6 cm; Wt 141.2 kg
--- NOTE | 2017-04-14 12:29 | Pharmacy Progress Note ---
Pharmacy Glycemic Short Note 2 Date of Service Apr 14, 2017. OUTPATIENT ANTIDIABETIC REGIMEN: * Novolog 70/30 - take 55 units in AM and 45 units in PM (total daily dose of 100 units daily) Test 04/13/17 16:51 04/13/17 20:26 04/14/17 06:58 04/14/17 08:08 Bedside Glucose 94 mg/dl (70-99) 130 mg/dl (70-99) 76 mg/dl (70-99) Random Glucose 76 mg/dl (70-99) Test 04/14/17 11:55 Bedside Glucose 85 mg/dl (70-99) ASSESSMENT: * Patient's blood sugars tend to fall overnight and rise throughout the day, and patient is close to hypoglycemia at times. Pt was switched from Lantus to NPH to try to help with BSGs dropping overnight. I will further try to help this by giving patient a fixed larger dose of NPH in the morning and fixed reduced dose in the evening, as the scale is causing the opposite to happen. Also loosen CF and CR slightly. * Mr Macedo is an 81 y/o M with a PMH of Afib, CAD, gout, GERD, HTN, SHAUNA, and reasonably well controlled type 2 diabetes (goal for this patient is 7.6-8.0% according to Elements of Diabetes Scoring) He presented to the hospital this time with an acute exacerbation of his HF. Patient initially had an YAMEL with lower blood sugars (as seen with June 2016 admission). PLAN FOR INPATIENT GLYCEMIC CONTROL: * Basal insulin * NPH 12 SQ this morning then begin fixed doses tonight: * 16 unis SQ QAM and 10 units SQ HS * Bolus insulin * NovoLog per scale ACHS or Q6hrs while NPO * Goal Range: Low 110 mg/dL - High 140 mg/dL * Loosen: Correction Factor: 12 mg/dL/unit * Loosen: Nutritional / Prandial insulin per carb ratio of 1 unit per 4 grams CHO consumed PLAN FOR DISCHARGE: * Mr Macedo's HbA1C is well controlled for age and comorbidities. As long as patient is not having hypoglycemia as an outpatient, it is reasonable to continue home regimen.
--- NOTE | 2017-04-14 14:05 | Progress Note ---
Subjective Date of Service: Apr 14, 2017. Subjective Pt evaluation today including: conversation w/ patient, physical exam, lab review, review of studies, review of inpatient medication list Saw/examined the patient in room 408 He's doing well, breathing much improved Denies chest pain/shortness of breath Problem List Medical Problems: (1) A-fib Status: Acute (2) Abnormal ECG Status: Acute (3) Acute electrocardiogram changes Status: Acute (4) Acute electrocardiogram changes Status: Acute (5) Acute kidney injury Status: Acute (6) Acute renal failure Status: Acute (7) Anemia Status: Acute (8) Atrial fibrillation with RVR Status: Acute (9) CHF (congestive heart failure) Status: Acute (10) CHF (congestive heart failure) Status: Acute (11) Dysphagia Status: Acute (12) Edema Status: Acute (13) Elevated troponin Status: Acute (14) Hyperglycemia Status: Acute (15) Hypoglycemia Status: Acute (16) Hypoglycemia Status: Acute (17) Hypoglycemia Status: Acute (18) Hypoxia Status: Acute (19) Insulin dependent diabetes mellitus Status: Acute (20) Jaw pain Status: Acute (21) NSTEMI (non-ST elevated myocardial infarction) Status: Acute (22) Right leg pain Status: Acute (23) Shortness of breath Status: Acute (24) Supratherapeutic INR Status: Acute Review of Systems Constitutional: No fever, No chills Respiratory: No cough, No sputum, No shortness of breath Cardiac: No chest pain Medications Current Inpatient Medications Medications (Trade) Dose Ordered Sig/Aileen Route Start Time Stop Time Status Last Admin Dose Admin Acetaminophen (Tylenol Tab) 650 mg Q4H PRN PO 04/05/17 16:15 05/05/17 16:14 Magnesium Hydroxide (Milk Of Magnesia Susp) 30 ml Q12H PRN PO 04/05/17 16:15 05/05/17 16:14 Nitroglycerin (Nitrostat Tab) 0.4 mg UD PRN SL 04/05/17 16:15 05/05/17 16:14 Insulin Aspart (novoLOG ASPART) SLIDING SCALE If C... ACHS SC 04/05/17 16:00 05/05/17 15:59 04/14/17 13:22 9 UNITS Glucose (Glucose 40% Gel) 15-30 GRAMS 15 GRAMS... UD PRN PO 04/05/17 16:30 05/05/17 16:29 Glucose (Glucose Chew Tab) 4-8 Tablets 4 Tabl... UD PRN PO 04/05/17 16:30 05/05/17 16:29 Dextrose (Dextrose 50% 50ML Syringe) 25-50ML OF 50% DW IV FOR... UD PRN IV 04/05/17 16:30 05/05/17 16:29 Glucagon (Glucagon Inj) 1 mg UD PRN SQ 04/05/17 16:30 05/05/17 16:29 Miscellaneous Information (Consult Glycemic Management Pharmacy) 1 ea UD PRN N/A 04/05/17 17:05 05/05/17 17:04 Albuterol (Ventolin Hfa Inhaler) 2 puffs Q6H PRN INH 04/05/17 16:30 05/05/17 16:29 Allopurinol (Zyloprim Tab) 450 mg QAM PO 04/06/17 09:00 05/06/17 08:59 04/14/17 08:46 450 MG Cyclobenzaprine HCl (Flexeril Tab) 10 mg TID PRN PO 04/05/17 16:30 05/05/17 16:29 Doxycycline Hyclate (Vibramycin Cap) 100 mg BID PO 04/05/17 21:00 04/15/17 20:59 04/14/17 08:45 100 MG Gabapentin (Neurontin Cap) 300 mg TID PO 04/05/17 21:00 05/05/17 20:59 04/14/17 13:23 300 MG Acetaminophen/ Hydrocodone Bitart ([place] 5/325 Tab) 1 tab TID PRN PO 04/05/17 16:30 04/19/17 16:29 04/08/17 23:24 1 TAB Isosorbide Mononitrate (Imdur Ext Rel Tab) 60 mg QAM PO 04/06/17 09:00 05/06/17 08:59 04/14/17 08:44 60 MG Metoprolol Tartrate (Lopressor Tab) 50 mg BID PO 04/05/17 21:00 05/05/17 20:59 04/14/17 08:44 50 MG Mirtazapine (Remeron Solutab) 15 mg HS PO 04/05/17 21:00 05/05/17 20:59 04/13/17 20:30 15 MG Prednisone (PredniSONE TAB) 5 mg DAILY PO 04/06/17 09:00 05/06/17 08:59 04/14/17 08:45 5 MG Rosuvastatin Calcium (Crestor Tab) 10 mg QPM PO 04/05/17 21:00 05/05/17 20:59 04/13/17 20:29 10 MG Pantoprazole Sodium (Protonix Tab) 40 mg BID PO 04/05/17 21:00 05/05/17 20:59 04/14/17 08:45 40 MG Potassium Chloride (Klor-Con Tab) 20 meq BID PO 04/07/17 11:00 05/07/17 10:59 04/14/17 08:45 20 MEQ Insulin Human NPH (novoLIN-N NPH) 16 units DAILY@0800 SC 04/14/17 09:00 05/14/17 08:59 Insulin Human NPH (novoLIN-N NPH) 10 units DAILY@1700 SC 04/14/17 17:00 05/14/17 16:59 Furosemide (Lasix Tab) 80 mg BID17 PO 04/14/17 17:00 05/14/17 16:59 Objective Vital Signs Date Time Temp Pulse Resp B/P (MAP) Pulse Ox O2 Delivery O2 Flow Rate FiO2 04/14/17 11:43 Room Air 04/14/17 08:25 36.6 67 18 148/81 (103) 98 04/14/17 00:45 36.7 74 20 132/75 (94) 96 BiPAP 04/14/17 00:00 CPAP 04/13/17 22:32 70 95 2.0 04/13/17 16:20 Room Air 04/13/17 14:44 36.2 75 20 151/71 (97) 96 Room Air Physical Exam General Appearance: no apparent distress, + obese Respiratory/Chest: lungs clear, normal breath sounds, no respiratory distress, no accessory muscle use Cardiovascular: + irregularly irregular Neurologic/Psychiatric: no motor/sensory deficits, alert, normal mood/affect Laboratory Results Last 24 Hours Test 04/13/17 16:51 04/13/17 20:26 04/14/17 06:58 04/14/17 08:08 Bedside Glucose 94 mg/dl 130 mg/dl 76 mg/dl White Blood Count 6.85 K/uL Red Blood Count 3.83 M/uL Hemoglobin 11.6 g/dL Hematocrit 36.4 % Mean Corpuscular Volume 95.0 fL Mean Corpuscular Hemoglobin 30.3 pg Mean Corpuscular Hemoglobin Concent 31.9 g/dl RDW Standard Deviation 65.2 fL RDW Coefficient of Variation 18.7 % Platelet Count 118 K/uL Mean Platelet Volume 9.9 fL Prothrombin Time 16.7 SECONDS Prothromb Time International Ratio 1.6 Sodium Level 141 mmol/L Potassium Level 3.5 mmol/L Chloride Level 106 mmol/L Carbon Dioxide Level 29 mmol/L Anion Gap 6.0 mmol/L Blood Urea Nitrogen 40 mg/dl Creatinine 1.70 mg/dl Est Creatinine Clear Calc Drug Dose 52.5 ml/min Estimated GFR () 42.9 Estimated GFR (Non- 37.0 BUN/Creatinine Ratio 23.6 Random Glucose 76 mg/dl Calcium Level 9.2 mg/dl Magnesium Level 2.2 mg/dl Test 04/14/17 11:55 Bedside Glucose 85 mg/dl Assessment and Plan This is an 81 year old male with a PMH of CAD s/p CABG, ischemic cardiomyopathy and systolic CHF with EF around 30-35%, chronic atrial fibrillation on long- term anticoagulation, insulin dependent DM2, CKD stage 3, HTN, chronic lower extremity swelling/venous stasis and wound ulcerations, chronic gout on long- term steroid use, SHAUNA on CPAP - presents with worsening shortness of breath and worsening lower extremity edema. Acute on Chronic Systolic CHF Ischemic Cardiomyopathy 04/14 will transition back to PO Lasix 80mg BID plan to d/c to [facility] 04/13 appreciate cardiology input labs are holding up, patient does not feel quite right to be discharged for now, will keep IV Lasix dose on discharge, can be placed back on Lasix PO 80mg BID can be transferred off of tele 04/12 would continue IV Lasix 60mg BID for now continue to monitor I's and O's monitor creat appreciate nephrology and cardiology input 04/11 LVEF of around 30-35% with multiple areas of hypokinesis on last echo in December 2016 takes a high dose of diuretics at home (Lasix 80mg BID) presented here and was started on IV Lasix 60mg BID JUSTIN-I held due to kidney function appreciate cardiology and nephrology input on 04/11 - will hold AM dose of Lasix, monitor bicarb levels may need to switch to oral diuretics, will await further input from cardiology Chronic Atrial Fibrillation 04/13 will give an extra dose of 3mg of Coumadin continue 10mg of Coumadin tonight to total 13mg goal INR of 2-3 04/12 on long-term Coumadin, with a goal INR of 2-3 currently subtherapeutic; dose of Coumadin increased to 7.5mg for tonight, will increase to 10mg tomorrow (04/12) CAD hx. of CABG x5 no acute issues will continue Imdur, statin, b-leah Venous Stasis Ulcerations patient sees wound care as outpatient was started on doxycycline as outpatient due to possible infection will need to stay on doxy until at least the end of the week further input as per wound care Insulin Dependent DM2 04/13 appreciate glycemic control assistance patient has been labile with his BSGs, worsened by steroid use basal insulin dose decreased carb ratio has been tightened, will monitor 04/11 well controlled; Ha1c = 6.0% currently held his NPH 70/30 will continue current dose of Lantus and sliding scale on discharge: back to home dose Chronic Gout patient on long-term prednisone for prophylaxis should see rheumatology regarding stopping this as it is likely making his lower extremity edema worse for now, continue low dose, 5mg of prednisone HTN blood pressure stable will consider adding back JUSTIN-I due to DM2, CHF CKD stage 3 creatinine up to 1.8, but close to baseline appreciate nephrology input DVT ppx Coumadin FULL CODE
[2017-04-14] MEDS ORDERED: MCRK20 PO (14:07)
--- NOTE | 2017-04-14 14:09 | Discharge Instructions ---
Discharge Instructions Date of Service Apr 14, 2017. Admission Reason for Admission: Chf (Congestive Heart Failure) Discharge Discharge Diagnosis / Problem: Acute on Chronic Systolic CHF Discharge Goals Goal(s): Decrease discomfort, Improve function, Diagnostic testing, Therapeutic intervention Activity Recommendations Activity Level: Up Ad Anita . Additional Information Patient informed of condition: Yes Advance Directives: No DNR: No Level of Care: Skilled Communicable Disease: No Prognosis: Stable Instructions / Follow-Up Instructions / Follow-Up Should be followed up with by Dr. Ryder on April 24 at 12:45PM * To be discharged to [facility] on 80mg of Lasix BID * Added potassium supplementation to his regimen * Continue Doxycycline twice daily for another 7 days - outpatient wound care and ID follow-up * Outpatient EGD esophageal dilatation - with GI follow-up * Should have blood work checked next week to follow-up on kidney function, electrolytes and INR Current Hospital Diet Patient's current hospital diet: Diabetes Type 2 Diet, AHA Diet (Heart Healthy) Discharge Diet Recommended Diet: AHA Diet (Heart Healthy), Diabetes Type 2 Diet Pending Studies Studies pending at discharge: no Laboratory Results Hemoglobin A1c Test 03/25/17 08:03 Range/Units Estimated Average Glucose 180 mg/dl Hemoglobin A1c 7.9 H 4.5-5.6 % Medical Emergencies . Who to Call and When: Medical Emergencies: If at any time you feel your situation is an emergency, please call 911 immediately. . Non-Emergent Contact Non-Emergency issues call your: Primary Care Provider, Forming Mill Operator, Software Engineering Specialist, Supervisor Education, Specialist (Wound Care, ID) . . "Provider Documentation" section prepared by Ranjith Car. . Core Measure Problem Core Measures: None
--- NOTE | 2017-04-14 14:13 | Discharge Summary ---
Discharge Summary Date of Service Apr 14, 2017. Discharge Summary Admission Date: Apr 05, 2017 at 16:09 Discharge Date: Apr 14, 2017 Discharge Disposition: shelter facility Principal Diagnosis: Acute on Chronic Systolic CHF Ischemic Cardiomyopathy Venous Stasis Ulcerations Chronic Atrial Fibrillation - on long-term anticoagulation Insulin Dependent DM2 Esophageal Dysmotility Chronic Gout - on long-term steroid use CKD stage 3 Medication Reconciliation New Medications: Doxycycline Hyclate (Doxycycline Hyclate) 100 Mg Cap 100 MG PO BID for 7 Days, #14 CAP Potassium Chloride (Klor-Con M20) 20 Meq Tabcr 20 MEQ PO BID for 30 Days, #60 TABS Warfarin Sod (Coumadin) 5 Mg Tab 15 MG PO DAILY for 30 Days, #90 TAB Continued Medications: Acetaminophen Tab (Tylenol) 325 Mg Tab 650 MG PO Q6H PRN for Pain or Fever, TAB Albuterol Hfa (Ventolin Hfa) 200 Puffs/15422 Mcg Aers 1-2 PUFFS INH Q6H PRN for SOB/Wheezing, #1 INHALER Allopurinol (Zyloprim) 300 Mg Tab 450 MG PO QAM, TAB Cyclobenzaprine Hcl (Flexeril) 10 Mg Tab 10 MG PO TID PRN for Muscle Spasms, TAB Ergocalciferol (Vitamin D2) Unknown Strength Tab 38080 UNITS PO MONTHLY Furosemide (Furosemide) 80 Mg Tab 80 MG PO BID Gabapentin (Gabapentin) 300 Mg Cap 1 CAP PO TID Hydrocodone/Acetaminophen 5MG/325MG (Firestone 5MG/325MG) Tab 1 TABLET PO TID PRN for Pain, TAB PRN PAIN Insulin Aspart 70/30 (Novolog Mix 70/30) Susp 55 UNITS SC QAM, BTL Insulin Aspart 70/30 (Novolog Mix 70/30) Susp 45 UNITS SC QPM Isosorbide Mononitrate Ext Rel (Imdur Ext Rel) 60 Mg Ertab 60 MG PO QAM, TAB Lisinopril (Zestril) 20 Mg Tab 20 MG PO DAILY, TAB Metoprolol Tartrate (Lopressor) (Lopressor) 50 Mg Tab 50 MG PO BID, TAB Mirtazapine Soltab (Remeron Soltab) 15 Mg Soltab 15 MG PO HS, TAB Nitroglycerin (Nitrostat) 0.4 Mg Tab 0.4 MG UT PRN PRN for Chest Pain Omeprazole (Prilosec) 20 Mg Capcr 40 MG PO BID, CAP Prednisone (Prednisone) 5 Mg Tab 5 MG PO DAILY, TAB Rosuvastatin Calcium (Crestor) 10 Mg Tab 10 MG PO QPM, TAB Senna/Docusate Sod (Senokot S) 1 Tab Tab 1 TAB PO DAILY PRN for Constipation, TAB Admission Information HPI (per Admitting provider): Pt is 81 y/o M with PMH cardiomyopathy, a-fib on coumadin, insulin dependent DM II, CKD III, CAD s/p CABG, HLD, HTN, chronic anemia, sleep apnea, gout, chronic LE wounds presented to ER with c/o increased SOB and increased LE edema. Hx of venous stasis and recurrent wounds to BLE. Follows with ID and wound clinic. Had admission for cellulitis LE and d/c on 03/29/17. Growth of MRSA, d/c on doxycycline. Pt states past couple of days noticed increased SOB and increased edema to BLE. Denies increased redness or drainage. Having legs re-dressed every other day. Started with non-productive cough yesterday and reports he feels like he needs to cough something up however is unable to do so. Denies any CP or palpitations. Is on lasix 80mg BID. He states has been taking. Pt admits to eating dov and today was going to eat fried chicken, however he doesn't believe he has been having salt in his diet. Reports influenza vaccine this season. Denies fever/chills, diaphoresis, N/V/D/C, RUSSELL, dizziness, syncope, vision changes, neck pain, CP, palpitations, hemoptysis, sore throat, choking, otalgia, rhinorrhea, abdominal pain, urinary symptoms. Physical Exam (per Admitting): General Appearance: no apparent distress, + obese Head: normocephalic, atraumatic Eyes: normal inspection, PERRL, EOMI, sclerae normal ENT: pharynx normal, + pertinent finding Neck: supple, no JVD, trachea midline Respiratory/Chest: no respiratory distress, no accessory muscle use, + decreased breath sounds Cardiovascular: + irregularly irregular Abdomen/GI: normal bowel sounds, non tender, soft Extremities/Musculoskelatal: + pertinent finding Neurologic/Psych: alert, normal mood/affect, oriented x 3 Skin: normal color, warm/dry Hospital Course This is an 81 year old male with a PMH of CAD s/p CABG, ischemic cardiomyopathy and systolic CHF with EF around 30-35%, chronic atrial fibrillation on long- term anticoagulation, insulin dependent DM2, CKD stage 3, HTN, chronic lower extremity swelling/venous stasis and wound ulcerations, chronic gout on long- term steroid use, SHAUNA on CPAP - presents with worsening shortness of breath and worsening lower extremity edema. Acute on Chronic Systolic CHF Ischemic Cardiomyopathy 04/18 clinically doing much better plan for continued diuretics; Lasix 80mg BID; adding potassium which should be checked weekly check INR in 2-3 days, use Coumadin 15mg daily until follow-up doxycycline for one more week - outpatient wound care and ID follow-up Prilosec 40mg BID - outpatient GI follow-up for EGD esophageal dilatation 04/17 patient states he's not quite ready to be discharged feeling really weak spiked a fever at 4PM on 04/16 restarted doxycycline to cover lower extremity wounds and URI/bronchitis if fevers persist or condition does not improve - can expand antibiotic coverage continue PO Lasix increase Coumadin to 15mg daily, recheck INR in AM should be discharged to [facility] in 1-2 days 04/16 at this point, will continue PO Lasix PT/OT refusing x-rays of the chest or abdomen if he spikes another fever, may need x-ray and cultures; at this point, will restart Doxycycline for the lower extremities and have a follow-up with wound care as outpatient at this time, plan to [facility] persists 04/15 currently on PO Lasix will need continued therapy; PT/OT - plan to d/c to [facility] on 04/17 04/14 will transition back to PO Lasix 80mg BID plan to d/c to [facility] 04/13 appreciate cardiology input labs are holding up, patient does not feel quite right to be discharged for now, will keep IV Lasix dose on discharge, can be placed back on Lasix PO 80mg BID can be transferred off of tele 04/12 would continue IV Lasix 60mg BID for now continue to monitor I's and O's monitor creat appreciate nephrology and cardiology input 04/11 LVEF of around 30-35% with multiple areas of hypokinesis on last echo in December 2016 takes a high dose of diuretics at home (Lasix 80mg BID) presented here and was started on IV Lasix 60mg BID JUSTIN-I held due to kidney function appreciate cardiology and nephrology input on 04/11 - will hold AM dose of Lasix, monitor bicarb levels may need to switch to oral diuretics, will await further input from cardiology Chronic Atrial Fibrillation 04/16 will give 15mg of Coumadin tonight recheck INR in AM 04/13 will give an extra dose of 3mg of Coumadin continue 10mg of Coumadin tonight to total 13mg goal INR of 2-3 04/12 on long-term Coumadin, with a goal INR of 2-3 currently subtherapeutic; dose of Coumadin increased to 7.5mg for tonight, will increase to 10mg tomorrow (04/12) CAD hx. of CABG x5 no acute issues will continue Imdur, statin, b-leah Venous Stasis Ulcerations patient sees wound care as outpatient was started on doxycycline as outpatient due to possible infection will need to stay on doxy until at least the end of the week further input as per wound care Insulin Dependent DM2 04/13 appreciate glycemic control assistance patient has been labile with his BSGs, worsened by steroid use basal insulin dose decreased carb ratio has been tightened, will monitor 04/11 well controlled; Ha1c = 6.0% currently held his NPH 70/30 will continue current dose of Lantus and sliding scale on discharge: back to home dose Chronic Gout patient on long-term prednisone for prophylaxis should see rheumatology regarding stopping this as it is likely making his lower extremity edema worse for now, continue low dose, 5mg of prednisone HTN blood pressure stable will consider adding back JUSTIN-I due to DM2, CHF CKD stage 3 creatinine up to 1.8, but close to baseline appreciate nephrology input DVT ppx Coumadin FULL CODE Total time spent on discharge = 45 minutes This includes examination of the patient, discharge planning, medication reconciliation, and communication with other providers. Discharge Instructions Should be followed up with by Dr. Ryder on April 24 at 12:45PM * To be discharged to [facility] on 80mg of Lasix BID * Added potassium supplementation to his regimen * Continue Doxycycline twice daily for another 7 days - outpatient wound care and ID follow-up * Outpatient EGD esophageal dilatation - with GI follow-up * Should have blood work checked next week to follow-up on kidney function, electrolytes and INR
[2017-04-14 15:12] VITALS: BP 115/59; PULSE 68; TEMP 36.9; O2SAT 92
[2017-04-14] MEDS: FUROSEMIDE 80 MG TAB PO SCH (18:02)
[2017-04-14] MEDS: ROSUVASTATIN CALCIUM 10 MG TAB PO SCH (20:36)
[2017-04-14] MEDS: MIRTAZAPINE SOLTAB 15 MG PO SCH (20:37)
[2017-04-14 21:47] VITALS: PULSE 62; O2SAT 95
[2017-04-15] VITALS (7 sets, daily range): BP systolic 112–145; BP diastolic 63–89; PULSE 68–139; TEMP 36.7–38.3; O2SAT 91–99
[2017-04-15] MEDS ORDERED: ONDANSETRON 4MG OD TAB PO STA (08:58)
[2017-04-15] MEDS: FUROSEMIDE 80 MG TAB PO SCH ×2 (09:23→17:29)
[2017-04-15] MEDS: METOPROLOL TARTRATE 50 MG TAB PO SCH ×2 (09:23→21:23)
[2017-04-15] MEDS: POTASSIUM CHLORIDE 20 MEQ TABCR PO SCH ×2 (09:23→21:30)
[2017-04-15] MEDS: PANTOprazole SOD 40 MG TAB PO SCH ×2 (09:23→21:21)
[2017-04-15] MEDS: ALLOPURINOL 300 MG TAB PO SCH (09:24)
[2017-04-15] MEDS: DOXYCYCLINE HYCLATE 100 MG CAP PO SCH ×2 (09:24→21:22)
[2017-04-15] MEDS: GABAPENTIN 300 MG CAP PO SCH ×3 (09:25→21:22)
[2017-04-15] MEDS: ISOSORBIDE MONONITRATE 60 MG TABCR PO SCH (09:25)
[2017-04-15] MEDS: INSULIN HUMAN NPH SC SCH ×2 (09:27→17:32)
[2017-04-15] MEDS: INSULIN ASPART 100 UNITS/ML 3 ML PEN SC SCH ×4 (09:27→21:00)
[2017-04-15] MEDS: ACETAMINOPHEN 325 MG TAB PO PRN (15:35)
--- NOTE | 2017-04-15 16:34 | Progress Note ---
Subjective Date of Service: Apr 15, 2017. Subjective Pt evaluation today including: conversation w/ patient, physical exam, lab review, review of studies, review of inpatient medication list Saw/examined the patient in room 408 He had some nausea earlier, resolved now Tells me he is very weak denies shortness of breath/chest pain Problem List Medical Problems: (1) A-fib Status: Acute (2) Abnormal ECG Status: Acute (3) Acute electrocardiogram changes Status: Acute (4) Acute electrocardiogram changes Status: Acute (5) Acute kidney injury Status: Acute (6) Acute renal failure Status: Acute (7) Anemia Status: Acute (8) Atrial fibrillation with RVR Status: Acute (9) CHF (congestive heart failure) Status: Acute (10) CHF (congestive heart failure) Status: Acute (11) Dysphagia Status: Acute (12) Edema Status: Acute (13) Elevated troponin Status: Acute (14) Hyperglycemia Status: Acute (15) Hypoglycemia Status: Acute (16) Hypoglycemia Status: Acute (17) Hypoglycemia Status: Acute (18) Hypoxia Status: Acute (19) Insulin dependent diabetes mellitus Status: Acute (20) Jaw pain Status: Acute (21) NSTEMI (non-ST elevated myocardial infarction) Status: Acute (22) Right leg pain Status: Acute (23) Shortness of breath Status: Acute (24) Supratherapeutic INR Status: Acute Review of Systems Constitutional: + weakness, No fever, No chills Respiratory: No wheezing, No shortness of breath, No dyspnea on exertion Cardiac: No chest pain Medications Current Inpatient Medications Medications (Trade) Dose Ordered Sig/Aileen Route Start Time Stop Time Status Last Admin Dose Admin Acetaminophen (Tylenol Tab) 650 mg Q4H PRN PO 04/05/17 16:15 05/05/17 16:14 04/15/17 15:35 650 MG Magnesium Hydroxide (Milk Of Magnesia Susp) 30 ml Q12H PRN PO 04/05/17 16:15 05/05/17 16:14 Nitroglycerin (Nitrostat Tab) 0.4 mg UD PRN SL 04/05/17 16:15 05/05/17 16:14 Insulin Aspart (novoLOG ASPART) SLIDING SCALE If C... ACHS SC 04/05/17 16:00 05/05/17 15:59 04/15/17 13:08 10 UNITS Glucose (Glucose 40% Gel) 15-30 GRAMS 15 GRAMS... UD PRN PO 04/05/17 16:30 05/05/17 16:29 Glucose (Glucose Chew Tab) 4-8 Tablets 4 Tabl... UD PRN PO 04/05/17 16:30 05/05/17 16:29 Dextrose (Dextrose 50% 50ML Syringe) 25-50ML OF 50% DW IV FOR... UD PRN IV 04/05/17 16:30 05/05/17 16:29 Glucagon (Glucagon Inj) 1 mg UD PRN SQ 04/05/17 16:30 05/05/17 16:29 Miscellaneous Information (Consult Glycemic Management Pharmacy) 1 ea UD PRN N/A 04/05/17 17:05 05/05/17 17:04 Albuterol (Ventolin Hfa Inhaler) 2 puffs Q6H PRN INH 04/05/17 16:30 05/05/17 16:29 Allopurinol (Zyloprim Tab) 450 mg QAM PO 04/06/17 09:00 05/06/17 08:59 04/15/17 09:24 450 MG Cyclobenzaprine HCl (Flexeril Tab) 10 mg TID PRN PO 04/05/17 16:30 05/05/17 16:29 Doxycycline Hyclate (Vibramycin Cap) 100 mg BID PO 04/05/17 21:00 04/15/17 20:59 04/15/17 09:24 100 MG Gabapentin (Neurontin Cap) 300 mg TID PO 04/05/17 21:00 05/05/17 20:59 04/15/17 13:08 300 MG Acetaminophen/ Hydrocodone Bitart ([place] 5/325 Tab) 1 tab TID PRN PO 04/05/17 16:30 04/19/17 16:29 04/08/17 23:24 1 TAB Isosorbide Mononitrate (Imdur Ext Rel Tab) 60 mg QAM PO 04/06/17 09:00 05/06/17 08:59 04/15/17 09:25 60 MG Metoprolol Tartrate (Lopressor Tab) 50 mg BID PO 04/05/17 21:00 05/05/17 20:59 04/15/17 09:23 50 MG Mirtazapine (Remeron Solutab) 15 mg HS PO 04/05/17 21:00 05/05/17 20:59 04/14/17 20:37 15 MG Prednisone (PredniSONE TAB) 5 mg DAILY PO 04/06/17 09:00 05/06/17 08:59 04/15/17 09:23 5 MG Rosuvastatin Calcium (Crestor Tab) 10 mg QPM PO 04/05/17 21:00 05/05/17 20:59 04/14/17 20:36 10 MG Pantoprazole Sodium (Protonix Tab) 40 mg BID PO 04/05/17 21:00 05/05/17 20:59 04/15/17 09:23 40 MG Potassium Chloride (Klor-Con Tab) 20 meq BID PO 04/07/17 11:00 05/07/17 10:59 04/15/17 09:23 20 MEQ Insulin Human NPH (novoLIN-N NPH) 16 units DAILY@0800 SC 04/14/17 09:00 05/14/17 08:59 04/15/17 09:27 16 UNITS Insulin Human NPH (novoLIN-N NPH) 10 units DAILY@1700 SC 04/14/17 17:00 05/14/17 16:59 04/14/17 18:09 10 UNITS Furosemide (Lasix Tab) 80 mg BID17 PO 04/14/17 17:00 05/14/17 16:59 04/15/17 09:23 80 MG Objective Vital Signs Date Time Temp Pulse Resp B/P (MAP) Pulse Ox O2 Delivery O2 Flow Rate FiO2 04/15/17 16:27 Room Air 04/15/17 15:53 78 92 Room Air 04/15/17 15:20 38.3 139 20 112/72 (85) 91 04/15/17 10:13 Room Air 04/15/17 07:39 37.9 84 20 145/89 (107) 95 04/15/17 00:41 36.7 82 20 136/81 (99) 94 CPAP 04/15/17 00:00 CPAP 04/14/17 21:47 62 95 2.0 Physical Exam General Appearance: no apparent distress Respiratory/Chest: no respiratory distress, no accessory muscle use, + decreased breath sounds Cardiovascular: no murmur, + irregularly irregular Extremities: + pertinent finding (lower extremity swelling improving) Laboratory Results Last 24 Hours Test 04/14/17 17:11 04/14/17 20:35 04/15/17 07:51 04/15/17 11:51 Bedside Glucose 145 mg/dl 173 mg/dl 125 mg/dl 124 mg/dl Assessment and Plan This is an 81 year old male with a PMH of CAD s/p CABG, ischemic cardiomyopathy and systolic CHF with EF around 30-35%, chronic atrial fibrillation on long- term anticoagulation, insulin dependent DM2, CKD stage 3, HTN, chronic lower extremity swelling/venous stasis and wound ulcerations, chronic gout on long- term steroid use, SHAUNA on CPAP - presents with worsening shortness of breath and worsening lower extremity edema. Acute on Chronic Systolic CHF Ischemic Cardiomyopathy 04/15 currently on PO Lasix will need continued therapy; PT/OT - plan to d/c to [facility] on 04/17 04/14 will transition back to PO Lasix 80mg BID plan to d/c to [facility] 04/13 appreciate cardiology input labs are holding up, patient does not feel quite right to be discharged for now, will keep IV Lasix dose on discharge, can be placed back on Lasix PO 80mg BID can be transferred off of tele 04/12 would continue IV Lasix 60mg BID for now continue to monitor I's and O's monitor creat appreciate nephrology and cardiology input 04/11 LVEF of around 30-35% with multiple areas of hypokinesis on last echo in December 2016 takes a high dose of diuretics at home (Lasix 80mg BID) presented here and was started on IV Lasix 60mg BID JUSTIN-I held due to kidney function appreciate cardiology and nephrology input on 04/11 - will hold AM dose of Lasix, monitor bicarb levels may need to switch to oral diuretics, will await further input from cardiology Chronic Atrial Fibrillation 04/13 will give an extra dose of 3mg of Coumadin continue 10mg of Coumadin tonight to total 13mg goal INR of 2-3 04/12 on long-term Coumadin, with a goal INR of 2-3 currently subtherapeutic; dose of Coumadin increased to 7.5mg for tonight, will increase to 10mg tomorrow (04/12) CAD hx. of CABG x5 no acute issues will continue Imdur, statin, b-leah Venous Stasis Ulcerations patient sees wound care as outpatient was started on doxycycline as outpatient due to possible infection will need to stay on doxy until at least the end of the week further input as per wound care Insulin Dependent DM2 04/13 appreciate glycemic control assistance patient has been labile with his BSGs, worsened by steroid use basal insulin dose decreased carb ratio has been tightened, will monitor 04/11 well controlled; Ha1c = 6.0% currently held his NPH 70/30 will continue current dose of Lantus and sliding scale on discharge: back to home dose Chronic Gout patient on long-term prednisone for prophylaxis should see rheumatology regarding stopping this as it is likely making his lower extremity edema worse for now, continue low dose, 5mg of prednisone HTN blood pressure stable will consider adding back JUSTIN-I due to DM2, CHF CKD stage 3 creatinine up to 1.8, but close to baseline appreciate nephrology input DVT ppx Coumadin FULL CODE
[2017-04-15] MEDS: MIRTAZAPINE SOLTAB 15 MG PO SCH (21:23)
[2017-04-15] MEDS: ROSUVASTATIN CALCIUM 10 MG TAB PO SCH (21:23)
[2017-04-16] VITALS (7 sets, daily range): BP systolic 120–145; BP diastolic 63–87; PULSE 65–97; TEMP 36.9–39.1; O2SAT 89–99
[2017-04-16 06:00] LABS: HEMOGLOBIN 12.1 g/dL (14.0-18.0); MEAN CORPUSCULAR HEMOGLOBIN 30.3 pg (25-34); MEAN CORPUSCULAR HGB CONC 31.8 g/dl (32-36); MEAN PLATELET VOLUME 9.7 fL (7.4-10.4); PLATELET COUNT 108 K/uL (130-400); RED CELL DISTRIBUTION WIDTH CV 18.7 % (11.5-14.5); WHITE BLOOD COUNT 6.12 K/uL (4.8-10.8)
[2017-04-16] MEDS: ACETAMINOPHEN 325 MG TAB PO PRN ×2 (06:19→14:56)
[2017-04-16 06:39] LABS: CALCIUM 8.9 mg/dl (8.5-10.1); CREATININE 1.82 mg/dl (0.60-1.40); POTASSIUM 3.9 mmol/L (3.5-5.1)
[2017-04-16 06:50] LABS: INR 1.4 (0.9-1.1)
[2017-04-16] MEDS: FUROSEMIDE 80 MG TAB PO SCH ×2 (08:23→15:45)
[2017-04-16] MEDS: GABAPENTIN 300 MG CAP PO SCH ×3 (08:23→20:15)
[2017-04-16] MEDS: PANTOprazole SOD 40 MG TAB PO SCH ×2 (08:23→20:14)
[2017-04-16] MEDS: ALLOPURINOL 300 MG TAB PO SCH (08:23)
[2017-04-16] MEDS: METOPROLOL TARTRATE 50 MG TAB PO SCH ×2 (08:24→20:15)
[2017-04-16] MEDS: POTASSIUM CHLORIDE 20 MEQ TABCR PO SCH ×2 (08:24→20:15)
[2017-04-16] MEDS: ISOSORBIDE MONONITRATE 60 MG TABCR PO SCH (08:24)
[2017-04-16] MEDS: INSULIN HUMAN NPH SC SCH ×2 (08:25→17:32)
[2017-04-16] MEDS: INSULIN ASPART 100 UNITS/ML 3 ML PEN SC SCH ×4 (08:26→20:59)
[2017-04-16] MEDS ORDERED: WARFARIN SOD 5 MG TAB PO ONE (13:30)
--- NOTE | 2017-04-16 14:15 | Progress Note ---
Subjective Date of Service: Apr 16, 2017. Subjective Pt evaluation today including: conversation w/ patient, physical exam, lab review, review of studies, review of inpatient medication list Saw/examined the patient in room 408 He is leaning forward to breathe I mentioned checking an x-ray, but he refuses tells me he is fine, denies most symptoms tells me his stomach was hurting, but does not want an x-ray to get it checked - denies nausea/vomiting/diarrhea had a low grade fever this morning Problem List Medical Problems: (1) A-fib Status: Acute (2) Abnormal ECG Status: Acute (3) Acute electrocardiogram changes Status: Acute (4) Acute electrocardiogram changes Status: Acute (5) Acute kidney injury Status: Acute (6) Acute renal failure Status: Acute (7) Anemia Status: Acute (8) Atrial fibrillation with RVR Status: Acute (9) CHF (congestive heart failure) Status: Acute (10) CHF (congestive heart failure) Status: Acute (11) Dysphagia Status: Acute (12) Edema Status: Acute (13) Elevated troponin Status: Acute (14) Hyperglycemia Status: Acute (15) Hypoglycemia Status: Acute (16) Hypoglycemia Status: Acute (17) Hypoglycemia Status: Acute (18) Hypoxia Status: Acute (19) Insulin dependent diabetes mellitus Status: Acute (20) Jaw pain Status: Acute (21) NSTEMI (non-ST elevated myocardial infarction) Status: Acute (22) Right leg pain Status: Acute (23) Shortness of breath Status: Acute (24) Supratherapeutic INR Status: Acute Review of Systems Respiratory: No cough, No sputum, No shortness of breath Cardiac: No chest pain Medications Current Inpatient Medications Medications (Trade) Dose Ordered Sig/Aileen Route Start Time Stop Time Status Last Admin Dose Admin Acetaminophen (Tylenol Tab) 650 mg Q4H PRN PO 04/05/17 16:15 05/05/17 16:14 04/16/17 06:19 650 MG Magnesium Hydroxide (Milk Of Magnesia Susp) 30 ml Q12H PRN PO 04/05/17 16:15 05/05/17 16:14 Nitroglycerin (Nitrostat Tab) 0.4 mg UD PRN SL 04/05/17 16:15 05/05/17 16:14 Insulin Aspart (novoLOG ASPART) SLIDING SCALE If C... ACHS SC 04/05/17 16:00 05/05/17 15:59 04/16/17 13:14 18 UNITS Glucose (Glucose 40% Gel) 15-30 GRAMS 15 GRAMS... UD PRN PO 04/05/17 16:30 05/05/17 16:29 Glucose (Glucose Chew Tab) 4-8 Tablets 4 Tabl... UD PRN PO 04/05/17 16:30 05/05/17 16:29 Dextrose (Dextrose 50% 50ML Syringe) 25-50ML OF 50% DW IV FOR... UD PRN IV 04/05/17 16:30 05/05/17 16:29 Glucagon (Glucagon Inj) 1 mg UD PRN SQ 04/05/17 16:30 05/05/17 16:29 Miscellaneous Information (Consult Glycemic Management Pharmacy) 1 ea UD PRN N/A 04/05/17 17:05 05/05/17 17:04 Albuterol (Ventolin Hfa Inhaler) 2 puffs Q6H PRN INH 04/05/17 16:30 05/05/17 16:29 Allopurinol (Zyloprim Tab) 450 mg QAM PO 04/06/17 09:00 05/06/17 08:59 04/16/17 08:23 450 MG Cyclobenzaprine HCl (Flexeril Tab) 10 mg TID PRN PO 04/05/17 16:30 05/05/17 16:29 Gabapentin (Neurontin Cap) 300 mg TID PO 04/05/17 21:00 05/05/17 20:59 04/16/17 13:12 300 MG Acetaminophen/ Hydrocodone Bitart ([place] 5/325 Tab) 1 tab TID PRN PO 04/05/17 16:30 04/19/17 16:29 04/08/17 23:24 1 TAB Isosorbide Mononitrate (Imdur Ext Rel Tab) 60 mg QAM PO 04/06/17 09:00 05/06/17 08:59 04/16/17 08:24 60 MG Metoprolol Tartrate (Lopressor Tab) 50 mg BID PO 04/05/17 21:00 05/05/17 20:59 04/16/17 08:24 50 MG Mirtazapine (Remeron Solutab) 15 mg HS PO 04/05/17 21:00 05/05/17 20:59 04/15/17 21:23 15 MG Prednisone (PredniSONE TAB) 5 mg DAILY PO 04/06/17 09:00 05/06/17 08:59 04/16/17 08:23 5 MG Rosuvastatin Calcium (Crestor Tab) 10 mg QPM PO 04/05/17 21:00 05/05/17 20:59 04/15/17 21:23 10 MG Pantoprazole Sodium (Protonix Tab) 40 mg BID PO 04/05/17 21:00 05/05/17 20:59 04/16/17 08:23 40 MG Potassium Chloride (Klor-Con Tab) 20 meq BID PO 04/07/17 11:00 05/07/17 10:59 04/16/17 08:24 20 MEQ Insulin Human NPH (novoLIN-N NPH) 16 units DAILY@0800 SC 04/14/17 09:00 05/14/17 08:59 04/16/17 08:25 16 UNITS Insulin Human NPH (novoLIN-N NPH) 10 units DAILY@1700 SC 04/14/17 17:00 05/14/17 16:59 04/15/17 17:32 10 UNITS Furosemide (Lasix Tab) 80 mg BID17 PO 04/14/17 17:00 05/14/17 16:59 04/16/17 08:23 80 MG Warfarin Sodium (Coumadin Tab) 10 mg DAILY@16 PO 04/16/17 16:00 05/16/17 15:59 Objective Vital Signs Date Time Temp Pulse Resp B/P (MAP) Pulse Ox O2 Delivery O2 Flow Rate FiO2 04/16/17 10:32 Room Air 04/16/17 07:39 37.9 83 20 120/63 (82) 92 04/16/17 00:31 36.9 97 20 145/87 (106) 94 CPAP 04/16/17 00:00 99 Room Air 04/15/17 21:30 68 128/63 (84) 04/15/17 21:17 69 99 2.0 04/15/17 18:32 37.2 04/15/17 16:27 Room Air 04/15/17 15:53 78 92 Room Air 04/15/17 15:20 38.3 139 20 112/72 (85) 91 Physical Exam General Appearance: no apparent distress, + obese Respiratory/Chest: no respiratory distress, no accessory muscle use, + decreased breath sounds Cardiovascular: no murmur, + irregularly irregular Extremities: + pedal edema, + swelling, + pertinent finding (dressed/wrapped) Neurologic/Psychiatric: no motor/sensory deficits, alert, normal mood/affect Laboratory Results Last 24 Hours Test 04/15/17 16:53 04/15/17 20:49 04/16/17 05:28 04/16/17 07:57 Bedside Glucose 133 mg/dl 150 mg/dl 105 mg/dl White Blood Count 6.12 K/uL Red Blood Count 4.00 M/uL Hemoglobin 12.1 g/dL Hematocrit 38.0 % Mean Corpuscular Volume 95.0 fL Mean Corpuscular Hemoglobin 30.3 pg Mean Corpuscular Hemoglobin Concent 31.8 g/dl RDW Standard Deviation 65.0 fL RDW Coefficient of Variation 18.7 % Platelet Count 108 K/uL Mean Platelet Volume 9.7 fL Prothrombin Time 15.0 SECONDS Prothromb Time International Ratio 1.4 Sodium Level 138 mmol/L Potassium Level 3.9 mmol/L Chloride Level 102 mmol/L Carbon Dioxide Level 30 mmol/L Anion Gap 6.0 mmol/L Blood Urea Nitrogen 41 mg/dl Creatinine 1.82 mg/dl Est Creatinine Clear Calc Drug Dose 63.8 ml/min Estimated GFR () 39.5 Estimated GFR (Non- 34.1 BUN/Creatinine Ratio 22.3 Random Glucose 124 mg/dl Calcium Level 8.9 mg/dl Magnesium Level 2.1 mg/dl Test 04/16/17 11:44 Bedside Glucose 111 mg/dl Assessment and Plan This is an 81 year old male with a PMH of CAD s/p CABG, ischemic cardiomyopathy and systolic CHF with EF around 30-35%, chronic atrial fibrillation on long- term anticoagulation, insulin dependent DM2, CKD stage 3, HTN, chronic lower extremity swelling/venous stasis and wound ulcerations, chronic gout on long- term steroid use, SHAUNA on CPAP - presents with worsening shortness of breath and worsening lower extremity edema. Acute on Chronic Systolic CHF Ischemic Cardiomyopathy 04/16 at this point, will continue PO Lasix PT/OT refusing x-rays of the chest or abdomen if he spikes another fever, may need x-ray and cultures; at this point, will restart Doxycycline for the lower extremities and have a follow-up with wound care as outpatient at this time, plan to [facility] persists 04/15 currently on PO Lasix will need continued therapy; PT/OT - plan to d/c to [facility] on 04/17 04/14 will transition back to PO Lasix 80mg BID plan to d/c to [facility] 04/13 appreciate cardiology input labs are holding up, patient does not feel quite right to be discharged for now, will keep IV Lasix dose on discharge, can be placed back on Lasix PO 80mg BID can be transferred off of tele 04/12 would continue IV Lasix 60mg BID for now continue to monitor I's and O's monitor creat appreciate nephrology and cardiology input 04/11 LVEF of around 30-35% with multiple areas of hypokinesis on last echo in December 2016 takes a high dose of diuretics at home (Lasix 80mg BID) presented here and was started on IV Lasix 60mg BID JUSTIN-I held due to kidney function appreciate cardiology and nephrology input on 04/11 - will hold AM dose of Lasix, monitor bicarb levels may need to switch to oral diuretics, will await further input from cardiology Chronic Atrial Fibrillation 04/16 will give 15mg of Coumadin tonight recheck INR in AM 04/13 will give an extra dose of 3mg of Coumadin continue 10mg of Coumadin tonight to total 13mg goal INR of 2-3 04/12 on long-term Coumadin, with a goal INR of 2-3 currently subtherapeutic; dose of Coumadin increased to 7.5mg for tonight, will increase to 10mg tomorrow (04/12) CAD hx. of CABG x5 no acute issues will continue Imdur, statin, b-leah Venous Stasis Ulcerations patient sees wound care as outpatient was started on doxycycline as outpatient due to possible infection will need to stay on doxy until at least the end of the week further input as per wound care Insulin Dependent DM2 04/13 appreciate glycemic control assistance patient has been labile with his BSGs, worsened by steroid use basal insulin dose decreased carb ratio has been tightened, will monitor 04/11 well controlled; Ha1c = 6.0% currently held his NPH 70/30 will continue current dose of Lantus and sliding scale on discharge: back to home dose Chronic Gout patient on long-term prednisone for prophylaxis should see rheumatology regarding stopping this as it is likely making his lower extremity edema worse for now, continue low dose, 5mg of prednisone HTN blood pressure stable will consider adding back JUSTIN-I due to DM2, CHF CKD stage 3 creatinine up to 1.8, but close to baseline appreciate nephrology input DVT ppx Coumadin FULL CODE
[2017-04-16] MEDS ORDERED: DOXYCYCLINE HYCLATE 100 MG CAP PO ONE (15:00)
--- NOTE | 2017-04-16 15:08 | Pharmacy Progress Note ---
Glycemic: Assessment & Plan Date of Service Apr 16, 2017. Assessment & Plan Mr. Macedo's bsg's continue to look good. Daily Prednisone 5mg continues. The patient is currently receiving ~50 units of insulin per day. BSGs ranging 124 - 140 mg/dl over the past 24hrs. * Basal insulin: NPH 16u QAM & 10u Daily @1700 to cover his prednisone and metabolic requirements * Correctional Insulin: Novolog Correction per scale ACHS Goal Range: Low 110 mg/dL - High 140 mg/dL Correction Factor: 12 mg/dL/unit * Prandial insulin: Per carb ratio of 1 unit per 4 grams CHO consumed BSGs continue to improve, no changes needed to inpatient regimen at this time. Pharmacy will continue to monitor patient daily and write orders per [facility] inpatient glycemic control protocol. Thanks. Test 04/16/17 11:44 POC Glucose 111 mg/dl (70-99) * Please note that the plan above was derived based on current level of insulin resistance and hospital stress. These recommendations are appropriate for inpatient admission only. Plan of care upon discharge will need to be reassessed to avoid potential outpatient hypo/hyperglycemia.
[2017-04-16] MEDS: WARFARIN SOD 10 MG TAB PO SCH (15:45)
--- NOTE | 2017-04-16 16:29 | DIAGNOSTIC IMAGING REPORT ---
KUB CLINICAL HISTORY: Generalized abdominal pain. FINDINGS: 2 AP, portable, supine abdominal radiographs are correlated with abdominal CT dated 07/17/2016. There is a nonobstructed abdominal bowel gas pattern. No evidence of intraperitoneal free air is seen on these supine views. Mild to moderate fecal retention is noted in the right colon. Surgical clips and suture material are present in the upper abdomen. The skeletal structures are osteopenic. Moderate spondylotic change is seen in the thoracic spine. The heart is enlarged and midline sternotomy wires are noted. IMPRESSION: Nonobstructed abdominal bowel gas pattern. Electronically signed by: Callum Maravilla M.D. 04/16/2017 4:28 PM Dictated Date/Time: 04/16/2017 4:27 PM
--- NOTE | 2017-04-16 16:34 | DIAGNOSTIC IMAGING REPORT ---
SINGLE VIEW CHEST CLINICAL HISTORY: Dyspnea. FINDINGS: An AP, portable, upright chest radiograph is compared to study dated 04/05/2017. The examination is degraded by portable technique and patient rotation. The patient is status post midline sternotomy. The heart is enlarged and there is atherosclerotic calcification of the thoracic aorta. There is pulmonary vascular congestion with evidence of interstitial edema. Small pleural effusions are identified. No pneumothorax is seen. The skeletal structures are osteopenic. The bony thorax is grossly intact. IMPRESSION: 1. Cardiomegaly with evidence of congestive failure and interstitial edema. 2. Small pleural effusions. 3. Correlate clinically for evidence of superimposed pneumonia. Electronically signed by: Callum Maravilla M.D. 04/16/2017 4:32 PM Dictated Date/Time: 04/16/2017 4:31 PM
[2017-04-16] MEDS: MIRTAZAPINE SOLTAB 15 MG PO SCH (20:14)
[2017-04-16] MEDS: ROSUVASTATIN CALCIUM 10 MG TAB PO SCH (20:15)
[2017-04-16] MEDS: DOXYCYCLINE HYCLATE 100 MG CAP PO SCH (20:15)
[2017-04-17] VITALS (8 sets, daily range): BP systolic 98–134; BP diastolic 66–87; PULSE 61–98; TEMP 36.5–36.8; O2SAT 94–99
[2017-04-17 06:06] LABS: HEMATOCRIT 36.4 % (42-52); HEMOGLOBIN 11.7 g/dL (14.0-18.0); MEAN CELL VOLUME 94.8 fL (80-100); MEAN CORPUSCULAR HEMOGLOBIN 30.5 pg (25-34); MEAN CORPUSCULAR HGB CONC 32.1 g/dl (32-36); RED CELL DISTRIBUTION WIDTH CV 18.8 % (11.5-14.5); RED CELL DISTRIBUTION WIDTH SD 65.2 fL (36.4-46.3); WHITE BLOOD COUNT 4.89 K/uL (4.8-10.8)
[2017-04-17 06:43] LABS: CALCIUM 8.6 mg/dl (8.5-10.1); CREATININE 2.02 mg/dl (0.60-1.40); POTASSIUM 3.7 mmol/L (3.5-5.1)
[2017-04-17 06:48] LABS: INR 1.3 (0.9-1.1)
[2017-04-17 06:55] LABS: MEAN PLATELET VOLUME 9.9 fL (7.4-10.4); PLATELET COUNT 97 K/uL (130-400)
[2017-04-17] MEDS: ALLOPURINOL 300 MG TAB PO SCH (08:49)
[2017-04-17] MEDS: ISOSORBIDE MONONITRATE 60 MG TABCR PO SCH (08:49)
[2017-04-17] MEDS: METOPROLOL TARTRATE 50 MG TAB PO SCH ×2 (08:50→19:42)
[2017-04-17] MEDS: FUROSEMIDE 80 MG TAB PO SCH ×2 (08:50→17:37)
[2017-04-17] MEDS: POTASSIUM CHLORIDE 20 MEQ TABCR PO SCH ×2 (08:50→19:42)
[2017-04-17] MEDS: PANTOprazole SOD 40 MG TAB PO SCH ×2 (08:50→19:42)
[2017-04-17] MEDS: GABAPENTIN 300 MG CAP PO SCH ×3 (08:50→19:42)
[2017-04-17] MEDS: DOXYCYCLINE HYCLATE 100 MG CAP PO SCH ×2 (08:51→19:42)
[2017-04-17] MEDS: INSULIN ASPART 100 UNITS/ML 3 ML PEN SC SCH ×4 (09:00→21:00)
[2017-04-17] MEDS: INSULIN HUMAN NPH SC SCH ×2 (09:01→17:41)
[2017-04-17] MEDS: WARFARIN SOD 10 MG TAB PO SCH (16:15)
--- NOTE | 2017-04-17 16:34 | Progress Note ---
Subjective Date of Service: Apr 17, 2017. Subjective Pt evaluation today including: conversation w/ patient, physical exam, lab review, review of studies, review of inpatient medication list Saw/examined the patient in room 408 He states he feels much weaker today Got up from the chair to the bathroom door, but could not go further states he has shortness of breath, does not feel ready to leave the hospital today Problem List Medical Problems: (1) A-fib Status: Acute (2) Abnormal ECG Status: Acute (3) Acute electrocardiogram changes Status: Acute (4) Acute electrocardiogram changes Status: Acute (5) Acute kidney injury Status: Acute (6) Acute renal failure Status: Acute (7) Anemia Status: Acute (8) Atrial fibrillation with RVR Status: Acute (9) CHF (congestive heart failure) Status: Acute (10) CHF (congestive heart failure) Status: Acute (11) Dysphagia Status: Acute (12) Edema Status: Acute (13) Elevated troponin Status: Acute (14) Hyperglycemia Status: Acute (15) Hypoglycemia Status: Acute (16) Hypoglycemia Status: Acute (17) Hypoglycemia Status: Acute (18) Hypoxia Status: Acute (19) Insulin dependent diabetes mellitus Status: Acute (20) Jaw pain Status: Acute (21) NSTEMI (non-ST elevated myocardial infarction) Status: Acute (22) Right leg pain Status: Acute (23) Shortness of breath Status: Acute (24) Supratherapeutic INR Status: Acute Review of Systems Constitutional: + weakness, + fatigue, No fever, No chills Respiratory: + shortness of breath Cardiac: No chest pain Medications Current Inpatient Medications Medications (Trade) Dose Ordered Sig/Aileen Route Start Time Stop Time Status Last Admin Dose Admin Acetaminophen (Tylenol Tab) 650 mg Q4H PRN PO 04/05/17 16:15 05/05/17 16:14 04/16/17 14:56 650 MG Magnesium Hydroxide (Milk Of Magnesia Susp) 30 ml Q12H PRN PO 04/05/17 16:15 05/05/17 16:14 Nitroglycerin (Nitrostat Tab) 0.4 mg UD PRN SL 04/05/17 16:15 05/05/17 16:14 Insulin Aspart (novoLOG ASPART) SLIDING SCALE If C... ACHS SC 04/05/17 16:00 05/05/17 15:59 3/18 12:43 11 UNITS Glucose (Glucose 40% Gel) 15-30 GRAMS 15 GRAMS... UD PRN PO 04/05/17 16:30 05/05/17 16:29 Glucose (Glucose Chew Tab) 4-8 Tablets 4 Tabl... UD PRN PO 04/05/17 16:30 05/05/17 16:29 Dextrose (Dextrose 50% 50ML Syringe) 25-50ML OF 50% DW IV FOR... UD PRN IV 04/05/17 16:30 05/05/17 16:29 Glucagon (Glucagon Inj) 1 mg UD PRN SQ 04/05/17 16:30 05/05/17 16:29 Miscellaneous Information (Consult Glycemic Management Pharmacy) 1 ea UD PRN N/A 04/05/17 17:05 05/05/17 17:04 Albuterol (Ventolin Hfa Inhaler) 2 puffs Q6H PRN INH 04/05/17 16:30 05/05/17 16:29 Allopurinol (Zyloprim Tab) 450 mg QAM PO 04/06/17 09:00 05/06/17 08:59 04/17/17 08:49 450 MG Cyclobenzaprine HCl (Flexeril Tab) 10 mg TID PRN PO 04/05/17 16:30 05/05/17 16:29 Gabapentin (Neurontin Cap) 300 mg TID PO 04/05/17 21:00 05/05/17 20:59 04/17/17 14:08 300 MG Acetaminophen/ Hydrocodone Bitart ([place] 5/325 Tab) 1 tab TID PRN PO 04/05/17 16:30 04/19/17 16:29 04/08/17 23:24 1 TAB Isosorbide Mononitrate (Imdur Ext Rel Tab) 60 mg QAM PO 04/06/17 09:00 05/06/17 08:59 04/17/17 08:49 60 MG Metoprolol Tartrate (Lopressor Tab) 50 mg BID PO 04/05/17 21:00 05/05/17 20:59 04/17/17 08:50 50 MG Mirtazapine (Remeron Solutab) 15 mg HS PO 04/05/17 21:00 3/23/18 20:59 04/16/17 20:14 15 MG Prednisone (PredniSONE TAB) 5 mg DAILY PO 04/06/17 09:00 05/06/17 08:59 04/17/17 08:49 5 MG Rosuvastatin Calcium (Crestor Tab) 10 mg QPM PO 04/05/17 21:00 05/05/17 20:59 04/16/17 20:15 10 MG Pantoprazole Sodium (Protonix Tab) 40 mg BID PO 04/05/17 21:00 05/05/17 20:59 04/17/17 08:50 40 MG Potassium Chloride (Klor-Con Tab) 20 meq BID PO 04/07/17 11:00 05/07/17 10:59 04/17/17 08:50 20 MEQ Insulin Human NPH (novoLIN-N NPH) 16 units DAILY@0800 ME 04/14/17 09:00 05/14/17 08:59 04/17/17 09:01 16 UNITS Insulin Human NPH (novoLIN-N NPH) 10 units DAILY@1700 ME 04/14/17 17:00 05/14/17 16:59 04/16/17 17:32 10 UNITS Furosemide (Lasix Tab) 80 mg BID17 PO 04/14/17 17:00 05/14/17 16:59 04/17/17 08:50 80 MG Warfarin Sodium (Coumadin Tab) 10 mg DAILY@16 PO 04/16/17 16:00 05/16/17 15:59 04/16/17 15:45 10 MG Doxycycline Hyclate (Vibramycin Cap) 100 mg BID PO 04/16/17 20:00 04/26/17 19:59 04/17/17 08:51 100 MG Objective Vital Signs Date Time Temp Pulse Resp B/P (MAP) Pulse Ox O2 Delivery O2 Flow Rate FiO2 04/17/17 15:35 Room Air 04/17/17 08:53 73 128/81 (97) 04/17/17 08:30 Room Air 04/17/17 08:05 36.6 69 20 98/66 (77) 94 Room Air 04/17/17 02:23 61 98 2.0 04/17/17 00:35 Room Air 04/17/17 00:00 36.8 70 20 129/73 (91) 95 04/16/17 22:06 65 96 2.0 04/16/17 20:21 36.9 Physical Exam General Appearance: no apparent distress, + obese, + pertinent finding ( resting tremor) Respiratory/Chest: no respiratory distress, no accessory muscle use, + decreased breath sounds Cardiovascular: + irregularly irregular (rate controlled) Extremities: + pedal edema, + swelling, + pertinent finding (+2 pitting edema b /l LE; b/l LE dressed) Neurologic/Psychiatric: no motor/sensory deficits, alert, normal mood/affect Laboratory Results Last 24 Hours Test 04/16/17 16:36 04/16/17 20:34 04/17/17 05:35 04/17/17 08:14 Bedside Glucose 180 mg/dl 185 mg/dl 99 mg/dl White Blood Count 4.89 K/uL Red Blood Count 3.84 M/uL Hemoglobin 11.7 g/dL Hematocrit 36.4 % Mean Corpuscular Volume 94.8 fL Mean Corpuscular Hemoglobin 30.5 pg Mean Corpuscular Hemoglobin Concent 32.1 g/dl RDW Standard Deviation 65.2 fL RDW Coefficient of Variation 18.8 % Platelet Count 97 K/uL Mean Platelet Volume 9.9 fL Platelet Estimate DECREASED Prothrombin Time 13.6 SECONDS Prothromb Time International Ratio 1.3 Sodium Level 138 mmol/L Potassium Level 3.7 mmol/L Chloride Level 104 mmol/L Carbon Dioxide Level 27 mmol/L Anion Gap 7.0 mmol/L Blood Urea Nitrogen 45 mg/dl Creatinine 2.02 mg/dl Est Creatinine Clear Calc Drug Dose 57.5 ml/min Estimated GFR () 34.8 Estimated GFR (Non- 30.0 BUN/Creatinine Ratio 22.4 Random Glucose 128 mg/dl Calcium Level 8.6 mg/dl Magnesium Level 2.2 mg/dl Test 04/17/17 11:55 Bedside Glucose 139 mg/dl Assessment and Plan This is an 81 year old male with a PMH of CAD s/p CABG, ischemic cardiomyopathy and systolic CHF with EF around 30-35%, chronic atrial fibrillation on long- term anticoagulation, insulin dependent DM2, CKD stage 3, HTN, chronic lower extremity swelling/venous stasis and wound ulcerations, chronic gout on long- term steroid use, SHAUNA on CPAP - presents with worsening shortness of breath and worsening lower extremity edema. Acute on Chronic Systolic CHF Ischemic Cardiomyopathy 04/17 patient states he's not quite ready to be discharged feeling really weak spiked a fever at 4PM on 04/16 restarted doxycycline to cover lower extremity wounds and URI/bronchitis if fevers persist or condition does not improve - can expand antibiotic coverage continue PO Lasix increase Coumadin to 15mg daily, recheck INR in AM should be discharged to [facility] in 1-2 days 04/16 at this point, will continue PO Lasix PT/OT refusing x-rays of the chest or abdomen if he spikes another fever, may need x-ray and cultures; at this point, will restart Doxycycline for the lower extremities and have a follow-up with wound care as outpatient at this time, plan to [facility] persists 04/15 currently on PO Lasix will need continued therapy; PT/OT - plan to d/c to [facility] on 04/17 04/14 will transition back to PO Lasix 80mg BID plan to d/c to [facility] 04/13 appreciate cardiology input labs are holding up, patient does not feel quite right to be discharged for now, will keep IV Lasix dose on discharge, can be placed back on Lasix PO 80mg BID can be transferred off of tele 04/12 would continue IV Lasix 60mg BID for now continue to monitor I's and O's monitor creat appreciate nephrology and cardiology input 04/11 LVEF of around 30-35% with multiple areas of hypokinesis on last echo in December 2016 takes a high dose of diuretics at home (Lasix 80mg BID) presented here and was started on IV Lasix 60mg BID JUSTIN-I held due to kidney function appreciate cardiology and nephrology input on 04/11 - will hold AM dose of Lasix, monitor bicarb levels may need to switch to oral diuretics, will await further input from cardiology Chronic Atrial Fibrillation 04/16 will give 15mg of Coumadin tonight recheck INR in AM 04/13 will give an extra dose of 3mg of Coumadin continue 10mg of Coumadin tonight to total 13mg goal INR of 2-3 04/12 on long-term Coumadin, with a goal INR of 2-3 currently subtherapeutic; dose of Coumadin increased to 7.5mg for tonight, will increase to 10mg tomorrow (04/12) CAD hx. of CABG x5 no acute issues will continue Imdur, statin, b-leah Venous Stasis Ulcerations patient sees wound care as outpatient was started on doxycycline as outpatient due to possible infection will need to stay on doxy until at least the end of the week further input as per wound care Insulin Dependent DM2 04/13 appreciate glycemic control assistance patient has been labile with his BSGs, worsened by steroid use basal insulin dose decreased carb ratio has been tightened, will monitor 04/11 well controlled; Ha1c = 6.0% currently held his NPH 70/30 will continue current dose of Lantus and sliding scale on discharge: back to home dose Chronic Gout patient on long-term prednisone for prophylaxis should see rheumatology regarding stopping this as it is likely making his lower extremity edema worse for now, continue low dose, 5mg of prednisone HTN blood pressure stable will consider adding back JUSTIN-I due to DM2, CHF CKD stage 3 creatinine up to 1.8, but close to baseline appreciate nephrology input DVT ppx Coumadin FULL CODE
[2017-04-17] MEDS: ROSUVASTATIN CALCIUM 10 MG TAB PO SCH (21:06)
[2017-04-17] MEDS: MIRTAZAPINE SOLTAB 15 MG PO SCH (21:06)
[2017-04-18 06:10] LABS: HEMATOCRIT 36.8 % (42-52); HEMOGLOBIN 11.8 g/dL (14.0-18.0); MEAN CELL VOLUME 94.8 fL (80-100); MEAN CORPUSCULAR HEMOGLOBIN 30.4 pg (25-34); MEAN CORPUSCULAR HGB CONC 32.1 g/dl (32-36); MEAN PLATELET VOLUME 9.6 fL (7.4-10.4); PLATELET COUNT 100 K/uL (130-400); RED CELL DISTRIBUTION WIDTH CV 18.7 % (11.5-14.5); RED CELL DISTRIBUTION WIDTH SD 64.7 fL (36.4-46.3); WHITE BLOOD COUNT 4.63 K/uL (4.8-10.8)
[2017-04-18 06:20] LABS: INR 1.4 (0.9-1.1)
[2017-04-18 06:47] LABS: CALCIUM 8.3 mg/dl (8.5-10.1); CREATININE 2.04 mg/dl (0.60-1.40); POTASSIUM 3.4 mmol/L (3.5-5.1)
[2017-04-18 07:27] VITALS: BP 130/86; PULSE 69; TEMP 36.4; O2SAT 100
[2017-04-18] MEDS: ISOSORBIDE MONONITRATE 60 MG TABCR PO SCH (08:20)
[2017-04-18] MEDS: DOXYCYCLINE HYCLATE 100 MG CAP PO SCH (08:20)
[2017-04-18] MEDS: FUROSEMIDE 80 MG TAB PO SCH (08:20)
[2017-04-18] MEDS: METOPROLOL TARTRATE 50 MG TAB PO SCH (08:20)
[2017-04-18] MEDS: ALLOPURINOL 300 MG TAB PO SCH (08:20)
[2017-04-18] MEDS: GABAPENTIN 300 MG CAP PO SCH ×2 (08:20→12:43)
[2017-04-18] MEDS: PANTOprazole SOD 40 MG TAB PO SCH (08:20)
[2017-04-18] MEDS: POTASSIUM CHLORIDE 20 MEQ TABCR PO SCH (08:21)
[2017-04-18] MEDS: INSULIN ASPART 100 UNITS/ML 3 ML PEN SC SCH ×2 (08:24→12:46)
[2017-04-18] MEDS: INSULIN HUMAN NPH SC SCH (08:24)
[2017-04-18] MEDS ORDERED: CMD5 PO (11:41)
[2017-04-18] MEDS ORDERED: DXY100 PO (11:41)
--- NOTE | 2017-04-18 11:43 | Progress Note ---
Subjective Date of Service: Apr 18, 2017. Subjective Pt evaluation today including: conversation w/ patient, physical exam, lab review, review of studies, review of inpatient medication list Saw/examined the patient in room 408 He's doing well today, feeling much better this morning Denies chest pain/shortness of breath/palpitations Esophageal dysmotility persists, but he is looking to advance his diet - he states that he could tolerate it and knows to go slow No other issues to note today Problem List Medical Problems: (1) A-fib Status: Acute (2) Abnormal ECG Status: Acute (3) Acute electrocardiogram changes Status: Acute (4) Acute electrocardiogram changes Status: Acute (5) Acute kidney injury Status: Acute (6) Acute renal failure Status: Acute (7) Anemia Status: Acute (8) Atrial fibrillation with RVR Status: Acute (9) CHF (congestive heart failure) Status: Acute (10) CHF (congestive heart failure) Status: Acute (11) Dysphagia Status: Acute (12) Edema Status: Acute (13) Elevated troponin Status: Acute (14) Hyperglycemia Status: Acute (15) Hypoglycemia Status: Acute (16) Hypoglycemia Status: Acute (17) Hypoglycemia Status: Acute (18) Hypoxia Status: Acute (19) Insulin dependent diabetes mellitus Status: Acute (20) Jaw pain Status: Acute (21) NSTEMI (non-ST elevated myocardial infarction) Status: Acute (22) Right leg pain Status: Acute (23) Shortness of breath Status: Acute (24) Supratherapeutic INR Status: Acute Review of Systems Constitutional: No fever, No chills Respiratory: + cough, + shortness of breath (improved), No sputum, No wheezing , No dyspnea on exertion Cardiac: + edema, No palpitations Abdomen: + see HPI, No pain, No nausea, No vomiting, No diarrhea Medications Current Inpatient Medications Medications (Trade) Dose Ordered Sig/Aileen Route Start Time Stop Time Status Last Admin Dose Admin Acetaminophen (Tylenol Tab) 650 mg Q4H PRN PO 04/05/17 16:15 05/05/17 16:14 04/16/17 14:56 650 MG Magnesium Hydroxide (Milk Of Magnesia Susp) 30 ml Q12H PRN PO 04/05/17 16:15 05/05/17 16:14 Nitroglycerin (Nitrostat Tab) 0.4 mg UD PRN SL 04/05/17 16:15 3/23/18 16:14 Insulin Aspart (novoLOG ASPART) SLIDING SCALE If C... ACHS SC 04/05/17 16:00 05/05/17 15:59 04/18/17 08:24 10 UNITS Glucose (Glucose 40% Gel) 15-30 GRAMS 15 GRAMS... UD PRN PO 04/05/17 16:30 05/05/17 16:29 Glucose (Glucose Chew Tab) 4-8 Tablets 4 Tabl... UD PRN PO 04/05/17 16:30 05/05/17 16:29 Dextrose (Dextrose 50% 50ML Syringe) 25-50ML OF 50% DW IV FOR... UD PRN IV 04/05/17 16:30 05/05/17 16:29 Glucagon (Glucagon Inj) 1 mg UD PRN SQ 04/05/17 16:30 05/05/17 16:29 Miscellaneous Information (Consult Glycemic Management Pharmacy) 1 ea UD PRN N/A 04/05/17 17:05 05/05/17 17:04 Albuterol (Ventolin Hfa Inhaler) 2 puffs Q6H PRN INH 04/05/17 16:30 05/05/17 16:29 Allopurinol (Zyloprim Tab) 450 mg QAM PO 04/06/17 09:00 05/06/17 08:59 04/18/17 08:20 450 MG Cyclobenzaprine HCl (Flexeril Tab) 10 mg TID PRN PO 04/05/17 16:30 05/05/17 16:29 Gabapentin (Neurontin Cap) 300 mg TID PO 04/05/17 21:00 05/05/17 20:59 04/18/17 08:20 300 MG Acetaminophen/ Hydrocodone Bitart ([place] 5/325 Tab) 1 tab TID PRN PO 04/05/17 16:30 04/19/17 16:29 04/08/17 23:24 1 TAB Isosorbide Mononitrate (Imdur Ext Rel Tab) 60 mg QAM PO 04/06/17 09:00 05/06/17 08:59 04/18/17 08:20 60 MG Metoprolol Tartrate (Lopressor Tab) 50 mg BID PO 04/05/17 21:00 05/05/17 20:59 04/18/17 08:20 50 MG Mirtazapine (Remeron Solutab) 15 mg HS PO 04/05/17 21:00 05/05/17 20:59 04/17/17 21:06 15 MG Prednisone (PredniSONE TAB) 5 mg DAILY PO 04/06/17 09:00 05/06/17 08:59 04/18/17 08:20 5 MG Rosuvastatin Calcium (Crestor Tab) 10 mg QPM PO 04/05/17 21:00 05/05/17 20:59 04/17/17 21:06 10 MG Pantoprazole Sodium (Protonix Tab) 40 mg BID PO 04/05/17 21:00 05/05/17 20:59 04/18/17 08:20 40 MG Potassium Chloride (Klor-Con Tab) 20 meq BID PO 04/07/17 11:00 05/07/17 10:59 04/18/17 08:21 20 MEQ Insulin Human NPH (novoLIN-N NPH) 16 units DAILY@0800 SC 04/14/17 09:00 05/14/17 08:59 04/18/17 08:24 16 UNITS Insulin Human NPH (novoLIN-N NPH) 10 units DAILY@1700 SC 04/14/17 17:00 05/14/17 16:59 04/17/17 17:41 10 UNITS Furosemide (Lasix Tab) 80 mg BID17 PO 04/14/17 17:00 05/14/17 16:59 04/18/17 08:20 80 MG Doxycycline Hyclate (Vibramycin Cap) 100 mg BID PO 04/16/17 20:00 04/26/17 19:59 04/18/17 08:20 100 MG Warfarin Sodium (Coumadin Tab) 15 mg DAILY@16 PO 04/18/17 16:00 05/18/17 15:59 Potassium Chloride (Klor-Con Tab) 20 meq NOW ONCE PO 04/18/17 12:00 04/18/17 12:01 Objective Vital Signs Date Time Temp Pulse Resp B/P (MAP) Pulse Ox O2 Delivery O2 Flow Rate FiO2 04/18/17 08:00 Room Air 04/18/17 07:27 36.4 69 20 130/86 (101) 100 BiPAP 2.0 04/18/17 00:00 Room Air 04/17/17 23:30 36.5 85 20 134/85 (101) 99 CPAP 04/17/17 22:00 75 96 2.0 04/17/17 19:45 Room Air CPAP 04/17/17 19:39 98 133/73 (93) 04/17/17 16:32 36.8 80 20 125/87 (100) 97 Room Air 04/17/17 15:35 Room Air Physical Exam General Appearance: no apparent distress, + obese Respiratory/Chest: chest non-tender, lungs clear, normal breath sounds, no respiratory distress, no accessory muscle use Cardiovascular: no murmur, + irregularly irregular Extremities: + swelling, + pertinent finding (lower extremities dressed) Neurologic/Psychiatric: no motor/sensory deficits, alert, normal mood/affect Laboratory Results Last 24 Hours Test 04/17/17 11:55 04/17/17 17:15 04/17/17 20:37 04/18/17 05:33 Bedside Glucose 139 mg/dl 122 mg/dl 121 mg/dl White Blood Count 4.63 K/uL Red Blood Count 3.88 M/uL Hemoglobin 11.8 g/dL Hematocrit 36.8 % Mean Corpuscular Volume 94.8 fL Mean Corpuscular Hemoglobin 30.4 pg Mean Corpuscular Hemoglobin Concent 32.1 g/dl RDW Standard Deviation 64.7 fL RDW Coefficient of Variation 18.7 % Platelet Count 100 K/uL Mean Platelet Volume 9.6 fL Prothrombin Time 14.5 SECONDS Prothromb Time International Ratio 1.4 Sodium Level 139 mmol/L Potassium Level 3.4 mmol/L Chloride Level 104 mmol/L Carbon Dioxide Level 27 mmol/L Anion Gap 8.0 mmol/L Blood Urea Nitrogen 46 mg/dl Creatinine 2.04 mg/dl Est Creatinine Clear Calc Drug Dose 56.7 ml/min Estimated GFR () 34.4 Estimated GFR (Non- 29.7 BUN/Creatinine Ratio 22.5 Random Glucose 116 mg/dl Calcium Level 8.3 mg/dl Magnesium Level 2.1 mg/dl Test 04/18/17 07:40 Bedside Glucose 127 mg/dl Assessment and Plan This is an 81 year old male with a PMH of CAD s/p CABG, ischemic cardiomyopathy and systolic CHF with EF around 30-35%, chronic atrial fibrillation on long- term anticoagulation, insulin dependent DM2, CKD stage 3, HTN, chronic lower extremity swelling/venous stasis and wound ulcerations, chronic gout on long- term steroid use, SHAUNA on CPAP - presents with worsening shortness of breath and worsening lower extremity edema. Acute on Chronic Systolic CHF Ischemic Cardiomyopathy 04/18 clinically doing much better plan for continued diuretics; Lasix 80mg BID; adding potassium which should be checked weekly check INR in 2-3 days, use Coumadin 15mg daily until follow-up doxycycline for one more week - outpatient wound care and ID follow-up Prilosec 40mg BID - outpatient GI follow-up for EGD esophageal dilatation 04/17 patient states he's not quite ready to be discharged feeling really weak spiked a fever at 4PM on 04/16 restarted doxycycline to cover lower extremity wounds and URI/bronchitis if fevers persist or condition does not improve - can expand antibiotic coverage continue PO Lasix increase Coumadin to 15mg daily, recheck INR in AM should be discharged to [facility] in 1-2 days 04/16 at this point, will continue PO Lasix PT/OT refusing x-rays of the chest or abdomen if he spikes another fever, may need x-ray and cultures; at this point, will restart Doxycycline for the lower extremities and have a follow-up with wound care as outpatient at this time, plan to [facility] persists 04/15 currently on PO Lasix will need continued therapy; PT/OT - plan to d/c to [facility] on 04/17 04/14 will transition back to PO Lasix 80mg BID plan to d/c to [facility] 04/13 appreciate cardiology input labs are holding up, patient does not feel quite right to be discharged for now, will keep IV Lasix dose on discharge, can be placed back on Lasix PO 80mg BID can be transferred off of tele 04/12 would continue IV Lasix 60mg BID for now continue to monitor I's and O's monitor creat appreciate nephrology and cardiology input 04/11 LVEF of around 30-35% with multiple areas of hypokinesis on last echo in December 2016 takes a high dose of diuretics at home (Lasix 80mg BID) presented here and was started on IV Lasix 60mg BID JUSTIN-I held due to kidney function appreciate cardiology and nephrology input on 04/11 - will hold AM dose of Lasix, monitor bicarb levels may need to switch to oral diuretics, will await further input from cardiology Chronic Atrial Fibrillation 04/16 will give 15mg of Coumadin tonight recheck INR in AM 04/13 will give an extra dose of 3mg of Coumadin continue 10mg of Coumadin tonight to total 13mg goal INR of 2-3 04/12 on long-term Coumadin, with a goal INR of 2-3 currently subtherapeutic; dose of Coumadin increased to 7.5mg for tonight, will increase to 10mg tomorrow (04/12) CAD hx. of CABG x5 no acute issues will continue Imdur, statin, b-leah Venous Stasis Ulcerations patient sees wound care as outpatient was started on doxycycline as outpatient due to possible infection will need to stay on doxy until at least the end of the week further input as per wound care Insulin Dependent DM2 04/13 appreciate glycemic control assistance patient has been labile with his BSGs, worsened by steroid use basal insulin dose decreased carb ratio has been tightened, will monitor 04/11 well controlled; Ha1c = 6.0% currently held his NPH 70/30 will continue current dose of Lantus and sliding scale on discharge: back to home dose Chronic Gout patient on long-term prednisone for prophylaxis should see rheumatology regarding stopping this as it is likely making his lower extremity edema worse for now, continue low dose, 5mg of prednisone HTN blood pressure stable will consider adding back JUSTIN-I due to DM2, CHF CKD stage 3 creatinine up to 1.8, but close to baseline appreciate nephrology input DVT ppx Coumadin FULL CODE
[2017-04-18] MEDS ORDERED: POTASSIUM CHLORIDE 20 MEQ TABCR PO ONE (12:00)
--- NOTE | 2017-04-18 14:45 | Pharmacy Progress Note ---
Pharmacy Glycemic Sign Off Nt Date of Service Apr 18, 2017. Assessment & Plan ASSESSMENT: * Pharmacy was consulted by Ben Castro on 04/05/17 for glycemic control and to write orders per [facility] inpatient glycemic control protocol. * Major changes made by pharmacy to antidiabetic regimen include: * Changed to NPH and Novolog * Patient has been receiving/requiring 60 units of insulin per day for adequate glycemic control * BSGs ranging 99- 139 mg/dl * Regimen has only required minor adjustments over the past 48hrs to achieve this level of control * Do not anticipate further changes in patient status that would quickly deteriorate glycemic control (i.e. patient to be NPO for upcoming procedure, steroids tapering, starting tube feedings, etc). * Please see recommendations for outpatient antidiabetic regimen below. PLAN FOR INPATIENT GLYCEMIC CONTROL: No changes needed to current regimen. Spoke with Dr. Car and received okay to sign off. * Pharmacy is signing off of glycemic consult and will no longer be making adjustments to inpatient regimen. Please feel free to re-consult if needed. Thank you. DISCHARGE RECOMMENDATIONS: * A1c 7.9 % on 03/25/17 * Resume outpatient regimen * Recommend checking BSGs frequently at [facility] and adjusting doses if BSGs become low d/t reduced po intake
[2017-04-18 15:02] VITALS: BP 106/69; PULSE 98; TEMP 37; O2SAT 93
[2017-04-18] MEDS ORDERED: WARFARIN SOD 5 MG TAB PO SCH (16:00)
== END 2017-04-18 16:41 | DRG 291 ==
LOC: EDBD 12:23 → C.EDB 12:24 → C.2E 16:09 → EEVIPCON 16:09 → ENRESERV 16:57 → C.4E 04-13 12:38
PROVIDERS: ADMIT Internal Medicine; ATTEND Family Medicine
DX: I13.0 Hypertensive heart and chronic kidney disease with heart failure and stage 1 through stage 4 chronic kidney disease, or unspecified chronic kidney disease (principal); I50.23 Acute on chronic systolic (congestive) heart failure; N17.9 Acute kidney failure, unspecified; L03.115 Cellulitis of right lower limb; L03.116 Cellulitis of left lower limb; E87.3 Alkalosis; I48.2 Chronic atrial fibrillation; E11.22 Type 2 diabetes mellitus with diabetic chronic kidney disease; N18.9 Chronic kidney disease, unspecified; I50.813 Acute on chronic right heart failure; I25.10 Atherosclerotic heart disease of native coronary artery without angina pectoris; E87.6 Hypokalemia; E78.5 Hyperlipidemia, unspecified; K21.9 Gastro-esophageal reflux disease without esophagitis; R13.10 Dysphagia, unspecified; K22.4 Dyskinesia of esophagus; G47.33 Obstructive sleep apnea (adult) (pediatric); M10.9 Gout, unspecified; I25.5 Ischemic cardiomyopathy; Z79.01 Long term (current) use of anticoagulants; Z79.4 Long term (current) use of insulin; Z79.52 Long term (current) use of systemic steroids; Z79.899 Other long term (current) drug therapy; Z87.891 Personal history of nicotine dependence; Z95.1 Presence of aortocoronary bypass graft

== ENCOUNTER → 2017-04-19 | Outpatient (CLI) | payer OTHER ==
[~2017-04-19] MED LIST changes: -CMD10 PO; +CMD5 PO; -DOXY-300 PO; +DXY100 PO; -IMDSR60 PO; +MCRK20 PO; -NRN100 PO; +NRN300 PO; -TRAM-10 PO; -WARF5TAB7 PO
[2017-04-19 08:07] LABS: HEMOGLOBIN 11.1 g/dL (14.0-18.0); MEAN CELL VOLUME 94.7 fL (80-100); MEAN CORPUSCULAR HEMOGLOBIN 30.9 pg (25-34); MEAN CORPUSCULAR HGB CONC 32.6 g/dl (32-36); RED CELL DISTRIBUTION WIDTH CV 18.4 % (11.5-14.5); RED CELL DISTRIBUTION WIDTH SD 63.8 fL (36.4-46.3); WHITE BLOOD COUNT 4.91 K/uL (4.8-10.8)
[2017-04-19 08:14] LABS: ALBUMIN 2.9 gm/dl (3.4-5.0); ALT/SGPT 33 U/L (12-78); BLOOD UREA NITROGEN 47 mg/dl (7-18); CALCIUM 8.4 mg/dl (8.5-10.1); CARBON DIOXIDE 26 mmol/L (21-32); CREATININE 1.81 mg/dl (0.60-1.40); GLUCOSE 134 mg/dl (70-99); POTASSIUM 3.5 mmol/L (3.5-5.1); SODIUM 141 mmol/L (136-145)
[2017-04-19 08:17] LABS: ALKALINE PHOSPHATASE 115 U/L (45-117); AST/SGOT 32 U/L (15-37); INR 1.5 (0.9-1.1); TOTAL PROTEIN 6.3 gm/dl (6.4-8.2)
[2017-04-19 08:18] LABS: MEAN PLATELET VOLUME 10.4 fL (7.4-10.4); PLATELET COUNT 92 K/uL (130-400)
[2017-04-19 08:51] LABS: BASO % 0.4 %; BASO ABS # 0.02 K/uL (0-0.2); EOS % 6.9 %; EOS ABS # 0.34 K/uL (0-0.5); IG# 0.01 K/uL (0.00-0.02); LYMPH % 17.7 %; LYMPH ABS # 0.87 K/uL (1.2-3.4); MONO % 10.4 %; MONO ABS # 0.51 K/uL (0.11-0.59); NEUT % 64.4 %; NEUT ABS # 3.16 K/uL (1.4-6.5)
== END ==
LOC: C.LABUPNIT 07:47
PROVIDERS: ATTEND Nurse Practitioner Family
DX: I10 Essential (primary) hypertension (principal); I87.2 Venous insufficiency (chronic) (peripheral); I48.2 Chronic atrial fibrillation

== ENCOUNTER → 2017-04-20 | Outpatient (CLI) | payer OTHER ==
[2017-04-20 10:07] LABS: INR 1.7 (0.9-1.1)
== END ==
LOC: C.LABUPNIT 08:22
PROVIDERS: ATTEND Nurse Practitioner Family
DX: I48.2 Chronic atrial fibrillation (principal)

== ENCOUNTER → 2017-04-21 | Outpatient (CLI) | payer OTHER ==
[2017-04-21 08:44] LABS: INR 1.8 (0.9-1.1)
== END ==
LOC: C.LABUPNIT 08:14
PROVIDERS: ATTEND Nurse Practitioner Family
DX: I48.2 Chronic atrial fibrillation (principal)

== ENCOUNTER → 2017-04-26 | Outpatient (CLI) | payer OTHER ==
[~2017-04-26] MED LIST changes: +IMD/2 PO; +MULT-506 PO; +ONDA4TAB46 PO; +POTA20TA16 PO; +SENN8.6C PO
[2017-04-26 09:47] LABS: HEMATOCRIT 37.6 % (42-52); HEMOGLOBIN 11.6 g/dL (14.0-18.0); MEAN CELL VOLUME 95.9 fL (80-100); MEAN CORPUSCULAR HEMOGLOBIN 29.6 pg (25-34); MEAN CORPUSCULAR HGB CONC 30.9 g/dl (32-36); MEAN PLATELET VOLUME 10.8 fL (7.4-10.4); PLATELET COUNT 155 K/uL (130-400); RED CELL DISTRIBUTION WIDTH CV 18.4 % (11.5-14.5); WHITE BLOOD COUNT 6.37 K/uL (4.8-10.8)
[2017-04-26 10:06] LABS: BLOOD UREA NITROGEN 43 mg/dl (7-18); CALCIUM 8.9 mg/dl (8.5-10.1); CARBON DIOXIDE 25 mmol/L (21-32); CREATININE 1.63 mg/dl (0.60-1.40); GLUCOSE 89 mg/dl (70-99); POTASSIUM 3.7 mmol/L (3.5-5.1); SODIUM 143 mmol/L (136-145)
== END ==
LOC: C.LABUPNIT 09:30
PROVIDERS: ATTEND Nurse Practitioner Family
DX: I50.40 Unspecified combined systolic (congestive) and diastolic (congestive) heart failure (principal)

== ENCOUNTER → 2017-04-27 | Outpatient (CLI) | payer OTHER ==
[2017-04-27 09:23] LABS: INR 6.8 (0.9-1.1)
== END ==
LOC: C.LABUPNIT 08:07
PROVIDERS: ATTEND Nurse Practitioner Family
DX: I48.2 Chronic atrial fibrillation (principal)

== ENCOUNTER → 2017-04-28 | Outpatient (CLI) | payer OTHER ==
[~2017-04-28] MED LIST changes: +WARF4TAB PO
[2017-04-28 08:56] LABS: INR 3.7 (0.9-1.1)
== END ==
LOC: C.LABUPNIT 08:19
PROVIDERS: ATTEND Nurse Practitioner Family
DX: I48.2 Chronic atrial fibrillation (principal)

== ENCOUNTER → 2017-04-29 | Outpatient (CLI) | payer OTHER ==
[2017-04-29 07:05] LABS: INR 2.4 (0.9-1.1)
== END ==
LOC: C.LABUPNIT 09:37
PROVIDERS: ATTEND Nurse Practitioner Family
DX: I48.2 Chronic atrial fibrillation (principal)

== ENCOUNTER → 2017-05-01 | Outpatient (CLI) | payer OTHER ==
[2017-05-01 09:05] LABS: INR 2.6 (0.9-1.1)
== END ==
LOC: C.LABUPNIT 08:37
PROVIDERS: ATTEND Nurse Practitioner Family
DX: I48.2 Chronic atrial fibrillation (principal)

== ENCOUNTER → 2017-05-04 | Outpatient (CLI) | payer OTHER ==
[~2017-05-04] MED LIST changes: -CMD5 PO; -DXY100 PO; -MCRK20 PO; -SENN-65 PO
[2017-05-04 08:43] LABS: HEMATOCRIT 33.8 % (42-52); HEMOGLOBIN 10.9 g/dL (14.0-18.0); MEAN CELL VOLUME 94.9 fL (80-100); MEAN CORPUSCULAR HEMOGLOBIN 30.6 pg (25-34); MEAN CORPUSCULAR HGB CONC 32.2 g/dl (32-36); MEAN PLATELET VOLUME 10.7 fL (7.4-10.4); NUCLEATED RED BLOOD CELL ABS 0.02 K/uL (0-0); PLATELET COUNT 134 K/uL (130-400); RED CELL DISTRIBUTION WIDTH CV 18.3 % (11.5-14.5); RED CELL DISTRIBUTION WIDTH SD 62.8 fL (36.4-46.3); WHITE BLOOD COUNT 8.51 K/uL (4.8-10.8)
[2017-05-04 08:54] LABS: INR 2.3 (0.9-1.1)
[2017-05-04 09:21] LABS: ALBUMIN 3.1 gm/dl (3.4-5.0); ALKALINE PHOSPHATASE 126 U/L (45-117); ALT/SGPT 27 U/L (12-78); AST/SGOT 29 U/L (15-37); BLOOD UREA NITROGEN 45 mg/dl (7-18); CARBON DIOXIDE 25 mmol/L (21-32); CREATININE 1.65 mg/dl (0.60-1.40); GLUCOSE 38 mg/dl (70-99); POTASSIUM 3.6 mmol/L (3.5-5.1); SODIUM 140 mmol/L (136-145)
== END | disposition home or self-care (01) ==
LOC: C.LABUPNIT 08:26
PROVIDERS: ATTEND Nurse Practitioner Family
DX: I48.2 Chronic atrial fibrillation (principal); I10 Essential (primary) hypertension

== ENCOUNTER → 2017-05-05 | Outpatient (CLI) | payer OTHER ==
[~2017-05-05] MED LIST changes: +ALBU0.633 NEB; +BISA10SU3 PR; +CHOLPOW PO; +GABA-112 PO; +INSDGI SC; +INSDGIPEN SC; +ISOS30TA3 PO; +LEVO1TAB35 PO; +LINE1TAB2 PO; +LISI-461 PO; +METO2.5T PO; +NUTR-7 PO; +NVLG SC; +NVLGIPEN SC; +POTA-639 PO; -POTA20TA16 PO; +SLWMEC PO; +SODI1ENE RE; +WARF5TAB90 PO
--- NOTE | 2017-05-17 11:07 | CODING QUERY NO DIAGNOSIS ---
TREATMENT RENDERED WITHOUT A DIAGNOSIS To promote full compliance with coding requirements relating to patient care, physician participation is requested in all cases of barn boss uncertainty. Please assist us with providing a diagnosis/symptom for the test(s) below: A diagnosis/symptom was not documented on your Order. A valid diagnosis/symptom is required to bill all insurances. Please remember that we are unable to code a diagnosis of rule out, probable, possible, questionable, or suspected. Tests that require a diagnosis: * Urinalysis w/o microscopy DIAGNOSIS: Provider Signature: Date: Thank you Mora Yi [employer] Once completed, please kindly fax back to [phone] For questions please call [phone]
== END ==
LOC: C.LABUPNIT 11:53
PROVIDERS: ATTEND Nurse Practitioner Family
DX: Z01.89 Encounter for other specified special examinations (principal)

== ENCOUNTER → 2017-05-06 | Outpatient (CLI) | payer OTHER ==
[~2017-05-06] MED LIST changes: -INSDGIPEN SC; -ISOS30TA3 PO; -LINE1TAB2 PO; -LISI-461 PO; -NUTR-7 PO; -NVLGIPEN SC; -POTA-639 PO; +POTA20TA16 PO; -SLWMEC PO
== END | disposition home or self-care (01) ==
LOC: C.LABUPNIT 10:08
PROVIDERS: ATTEND Nurse Practitioner Family
DX: A04.72 Enterocolitis due to Clostridium difficile, not specified as recurrent (principal)

== ENCOUNTER → 2017-05-08 | Outpatient (CLI) | payer OTHER ==
[2017-05-08 08:44] LABS: INR 2.2 (0.9-1.1)
== END | disposition home or self-care (01) ==
LOC: C.LABUPNIT 08:03
PROVIDERS: ATTEND Nurse Practitioner Family
DX: I48.2 Chronic atrial fibrillation (principal)

== ENCOUNTER → 2017-05-09 | Day surgery (SDC) | payer OTHER ==
[2017-05-02 10:54] VITALS: BMI 39.0
[~2017-05-09] VITALS: Ht 190.5 cm; Wt 142.3 kg
[~2017-05-09] MED LIST changes: -ALBU0.633 NEB; -BISA10SU3 PR; -CHOLPOW PO; +ESMOLOL HCL 10 MG/ML 10 ML VIAL ONE; +EpHEDrine SULFATE 50MG/5ML SYR ONE; -GABA-112 PO; -INSDGI SC; -LEVO1TAB35 PO; +LIDOCAINE HCL 2% 2 ML VIAL (20MG/ML) ONE; -METO2.5T PO; -NVLG SC; +PROPOFOL IV EMULSION 10 MG/ML 20 ML VIAL IV ONE; -SODI1ENE RE; +SODIUM CHLORIDE 0.9% 500ML 500 ML IV ONE; -WARF5TAB90 PO
[2017-05-09 12:27] VITALS: Ht 190.5 cm; Wt 142.3 kg
--- NOTE | 2017-05-09 12:52 | Endo History and Physical ---
History & Physical Date of Service: May 09, 2017. Chief Complaint: DYSPHAGIA Referring Physician: DR. PAK History of Present Illness Dysphagia and Hx of prior dilations Past Medical History Atrial Fibrillation, Diabetes, Pulmonary Emboli, High Cholesterol, Sleep Apnea, CABG, Heart Disease, Hypertension Past Surgical History Hx Cardiac Surgery: Yes (CABG 2007) Hx Internal Defibrillator: No Hx Pacemaker: No Hx Abdominal Surgery: No Hx of Implantable Prosthesis: No Hx Post-Op Nausea and Vomiting: No Hx Cancer Surgery: No Hx Thoracic Surgery: No Hx Orthopedic: Yes (L TKA, L rotator cuff repair, KNEE SCOPE, RT SHA) Hx Urinary Tract Surgery: No Social History Smoking Status: Former Smoker Hx Substance Use: No Hx Alcohol Use: Yes (RARE) Allergies Coded Allergies: NO KNOWN DRUG ALLERGIES (Verified Allergy, Unknown, ., 05/09/17) Current Medications Reported Home Medications Medications Dose Route/Sig Max Daily Dose Days Date Category Dose Instructions Coumadin (Warfarin Sodium) 4 Mg Tab 2 Tab PO DAILY 30 05/09/17 Reported Zofran (Ondansetron HCl) 4 Mg Tab 4 Mg PO Q6H PRN 05/02/17 Reported Senna (Sennosides) 8.6 Mg Cap 1 Cap PO DAILY PRN 05/02/17 Reported Multivitamin (Multivitamins) Tab 1 Tab PO DAILY 05/02/17 Reported Klor-Con (Potassium Chloride) 20 Meq Tabcr 20 Meq PO BID 05/02/17 Reported Imodium (Loperamide HCl) 2 Mg Cap 2 Mg PO Q6H PRN 05/02/17 Reported Gabapentin 300 Mg Cap 1 Cap PO TID 04/05/17 Reported Simpson 5MG/325MG (Acetaminophen/Hydrocodone Bitart) Tab 1 Tablet PO TID PRN 04/05/17 Reported PRN PAIN Imdur Ext Rel (Isosorbide Mononitrate) 60 Mg Ertab 60 Mg PO QAM 04/05/17 Reported Lopressor (Metoprolol Tartrate) 50 Mg Tab 50 Mg PO BID 03/24/17 Reported Remeron Soltab (Mirtazapine) 15 Mg Soltab 15 Mg PO HS 12/14/16 Reported Ventolin Hfa (Albuterol) 200 Puffs/37465 Mcg Aers 1-2 Puffs INH Q6H PRN 12/14/16 Reported Flexeril (Cyclobenzaprine Hcl) 10 Mg Tab 10 Mg PO TID PRN 12/14/16 Reported Zyloprim (Allopurinol) 300 Mg Tab 450 Mg PO QAM 12/14/16 Reported Zestril (Lisinopril) 20 Mg Tab 20 Mg PO DAILY 12/14/16 Reported Novolog Mix 70/30 (Insulin Aspart Prota 70%/Aspart 30%) Susp 45 Units SC QPM 12/14/16 Reported Furosemide 80 Mg Tab 80 Mg PO BID 12/14/16 Reported Prednisone 5 Mg Tab 5 Mg PO DAILY 09/27/16 Reported Crestor (Rosuvastatin Calcium) 10 Mg Tab 10 Mg PO QPM 07/17/16 Reported Tylenol (Acetaminophen) 325 Mg Tab 650 Mg PO Q6H PRN 07/17/16 Reported Vitamin D2 (Ergocalciferol) Unknown Strength Tab 50,000 Units PO MONTHLY 07/17/16 Reported Novolog Mix 70/30 (Insulin Aspart Prota 70%/Aspart 30%) Susp 55 Units SC QAM 07/12/16 Reported Nitrostat (Nitroglycerin) 0.4 Mg Tab 0.4 Mg UT PRN PRN 07/02/15 Reported Prilosec (Omeprazole) 20 Mg Capcr 40 Mg PO BID 07/02/15 Reported Vital Signs Weight (Kilograms): 142.27 Height (Feet): 6 Height (Inches): 3 Physical Exam General Appearance: no apparent distress Respiratory/Chest: Auscultation: breath sounds normal Cardiovascular: Heart Auscultation: RRR Abdomen: Bowel Sounds: normal Inspection & Palpation: soft Liver: non-tender Assessment and Plan Stable for EGD
--- NOTE | 2017-05-09 13:59 | GI REPORT ---
Procedure Date: 05/09/2017 1:19 PM Procedure: Upper GI endoscopy Indications: Dysphagia Medicines: Monitored Anesthesia Care Complications: No immediate complications. Estimated Blood Loss: Estimated blood loss: none. Procedure: Pre-Anesthesia Assessment: - Prior to the procedure, a History and Physical was performed, and patient medications and allergies were reviewed. The patient is competent. The risks and benefits of the procedure and the sedation options and risks were discussed with the patient. All questions were answered and informed consent was obtained. Patient identification and proposed procedure were verified by the physician and the nurse in the procedure room. Mental Status Examination: alert and oriented. Airway Examination: normal oropharyngeal airway and neck mobility. Respiratory Examination: clear to auscultation. CV Examination: normal. ASA Grade Assessment: IV - A patient with severe systemic disease that is a constant threat to life. After reviewing the risks and benefits, the patient was deemed in satisfactory condition to undergo the procedure. The anesthesia plan was to use monitored anesthesia care (MAC). Immediately prior to administration of medications, the patient was re-assessed for adequacy to receive sedatives. The heart rate, respiratory rate, oxygen saturations, blood pressure, adequacy of pulmonary ventilation, and response to care were monitored throughout the procedure. The physical status of the patient was re-assessed after the procedure. After obtaining informed consent, the endoscope was passed under direct vision. Throughout the procedure, the patient's blood pressure, pulse, and oxygen saturations were monitored continuously. The scope was introduced through the mouth, and advanced to the second part of duodenum. The upper GI endoscopy was accomplished without difficulty. The patient tolerated the procedure well. Findings: The examined esophagus was normal. No endoscopic abnormality was evident in the esophagus to explain the patient's complaint of dysphagia. It was decided, however, to proceed with dilation of the entire esophagus. A guidewire was placed and the scope was withdrawn. Dilation was performed with a Savary dilator with no resistance at 36 Fr, 42 Fr and 60 Fr. The dilation site was examined following endoscope reinsertion and showed no bleeding, mucosal tear or perforation. Abnormal motility was noted in the esophagus. There is a decrease in motility of the esophageal body. The distal esophagus/lower esophageal sphincter is open. Diffuse granular mucosa was found in the gastric body. Biopsies were taken with a cold forceps for histology. Biopsies were taken with a cold forceps for Helicobacter pylori testing. Verification of patient identification for the specimen was done by the physician and nurse using the patient's name and date. The duodenal bulb and second portion of the duodenum were normal. Impression: - Normal esophagus. - No gross endoscopic esophageal abnormality to explain patient's dysphagia. Esophagus empirically dilated. Dilated. - Abnormal esophageal motility. - Granular gastric mucosa. Biopsied. - Normal duodenal bulb and second portion of the duodenum. Recommendation: - Discharge patient to home. - Await pathology results. - Schedule esophageal manometry if no improvement after dilation. - Return to referring physician. Justo Hernadez MD 05/09/2017 1:59:13 PM This report has been signed electronically. Note Initiated On: 05/09/2017 1:19 PM I attest to the content of the Intraoperative Record and orders documented therein, exceptions below
--- NOTE | 2017-05-09 14:00 | Discharge Instructions ---
Endoscopy Patient Instructions Date / Procedure(s) Performed May 09, 2017. EGD Allergy Information Coded Allergies: NO KNOWN DRUG ALLERGIES (Verified Allergy, Unknown, ., 05/09/17) Discharge Date / Findings May 09, 2017. Normal esophagus, empirically dilated. Decreased esophageal motility. Gastritis. Provider Instructions Activity Restrictions - No exercising or heavy lifting for 24 hours. - Do not drink alcohol the day of the procedure. - Do not drive a car or operate machinery until the day after the procedure. - Do not make any important decisions or sign important papers in 24 hours after the procedure. Following Day: - Return to full activity which may include returning to work/school. Diet Start your diet with liquids and light foods (jello, soup, juice, toast). Then eat your usual diet if not nauseated. Treatment For Common After Affects For mild abdominal pain, bloating, or excessive gas: - Rest - Eat lightly - Lie on right side Follow-Up Information Follow-up with DR. PAK as scheduled Anesthesia Information What You Should Know You have had a procedure that required some medicine to reduce anxiety and discomfort. This treatment is called moderate sedation. After receiving the treatment, you may be sleepy, but you will be able to breathe on your own. The effects of the treatment may last for several hours. Follow these instructions along with Activity/Diet recommendations noted above: * Do NOT do anything where dizziness or clumsiness would be dangerous. * Rest quietly at home today, then you can be up and about tomorrow. * Have a responsible person stay with you the rest of today. * You may have had an I.V. today. If so, you may take the dressing off later today. Recommendations Call your doctor if: * Trouble breathing * Continuous vomiting for more than 24 hours * Temperature above 101 degrees * Severe abdominal pain or bloating * Pain not relieved by pain medicine ordered * There is increased drainage or redness from any incision * A large amount of rectal bleeding greater than 2-3 tablespoons. (If you had a polyp/s removed or have hemorrhoids, a small amount of blood - from the rectum is to be expected.) * You have any unanswered questions or concerns. IN THE EVENT OF A SERIOUS EMERGENCY, GO TO THE NEAREST EMERGENCY ROOM Your discharge instructions were prepared by provider Justo Hernadez. Patient Instructions Signature Page Dong [place]o Patient (or Guardian) Signature/Date: I have read and understand the instructions given to me by my caregivers. Caregiver/RN/Doctor Signature/Date: The above-named patient and/or guardian has received patient instructions on this date. + Original Patient Signature Page (only) stays with chart. Please make copy for patient.
--- NOTE | 2017-05-09 15:13 | Anesthesiology Progress Note ---
Anesthesia Post Op Note Date & Time May 09, 2017 at 15:07 Vital Signs Pain Intensity: 0 Vital Signs Past 12 Hours Date Time Temp Pulse Resp B/P (MAP) Pulse Ox O2 Delivery O2 Flow Rate FiO2 05/09/17 12:51 36.4 84 22 113/83 (93) 98 Room Air Notes Mental Status: alert / awake / arousable, participated in evaluation Pt Amnestic to Procedure: Yes Nausea / Vomiting: adequately controlled Pain: adequately controlled Airway Patency, RR, SpO2: stable & adequate BP & HR: stable & adequate Hydration State: stable & adequate Anesthetic Complications: no major complications apparent The patient was a little slow to wake up. We checked his FBG which was 72 and within his normal range of blood sugars. We gave him 200 ml of D5W and two juice drinks, which did not change his blood sugar significantly. He was alert and oriented when we discharged him home.
[2017-05-09 15:28] VITALS: BP 100/69; PULSE 100; O2SAT 94
== END | disposition home or self-care (01) ==
LOC: C.GI 10:05
PROVIDERS: ATTEND Student in an Organized Health Care Education/Training Program
DX: R13.10 Dysphagia, unspecified (principal); K29.70 Gastritis, unspecified, without bleeding; G47.33 Obstructive sleep apnea (adult) (pediatric); I11.0 Hypertensive heart disease with heart failure; I50.9 Heart failure, unspecified; I25.10 Atherosclerotic heart disease of native coronary artery without angina pectoris; E11.9 Type 2 diabetes mellitus without complications; E78.00 Pure hypercholesterolemia, unspecified; Z99.89 Dependence on other enabling machines and devices; Z86.711 Personal history of pulmonary embolism; Z95.1 Presence of aortocoronary bypass graft; Z87.891 Personal history of nicotine dependence; Z79.01 Long term (current) use of anticoagulants; Z79.52 Long term (current) use of systemic steroids

== ENCOUNTER → 2017-05-09 | Outpatient (CLI) | payer OTHER ==
[~2017-05-09] MED LIST changes: -ESMOLOL HCL 10 MG/ML 10 ML VIAL ONE; -EpHEDrine SULFATE 50MG/5ML SYR ONE; -LIDOCAINE HCL 2% 2 ML VIAL (20MG/ML) ONE; -PROPOFOL IV EMULSION 10 MG/ML 20 ML VIAL IV ONE; -SODIUM CHLORIDE 0.9% 500ML 500 ML IV ONE
[2017-05-09 09:04] LABS: BLOOD UREA NITROGEN 45 mg/dl (7-18); CALCIUM 8.8 mg/dl (8.5-10.1); CARBON DIOXIDE 21 mmol/L (21-32); CREATININE 1.71 mg/dl (0.60-1.40); GLUCOSE 39 mg/dl (70-99); SODIUM 141 mmol/L (136-145)
== END ==
LOC: C.LABUPNIT 08:21
PROVIDERS: ATTEND Nurse Practitioner Family
DX: N18.3 Chronic kidney disease, stage 3 (moderate) (principal)

== ENCOUNTER → 2017-05-10 | Outpatient (CLI) | payer OTHER ==
[~2017-05-10] MED LIST changes: +ALBU0.633 NEB; +BISA10SU3 PR; +CHOLPOW PO; +GABA-112 PO; +INSDGI SC; +LEVO1TAB35 PO; +METO2.5T PO; +NVLG SC; +SODI1ENE RE; +WARF5TAB90 PO
[2017-05-10 09:40] LABS: BLOOD UREA NITROGEN 44 mg/dl (7-18); CALCIUM 8.6 mg/dl (8.5-10.1); CARBON DIOXIDE 21 mmol/L (21-32); CREATININE 1.62 mg/dl (0.60-1.40); GLUCOSE 55 mg/dl (70-99); SODIUM 141 mmol/L (136-145)
== END | disposition home or self-care (01) ==
LOC: C.LABUPNIT 08:48
PROVIDERS: ATTEND Nurse Practitioner Family
DX: N18.9 Chronic kidney disease, unspecified (principal); E08.22 Diabetes mellitus due to underlying condition with diabetic chronic kidney disease

== ENCOUNTER → 2017-05-12 | Outpatient (CLI) | payer OTHER ==
[2017-05-12 09:13] LABS: BLOOD UREA NITROGEN 43 mg/dl (7-18); CALCIUM 8.7 mg/dl (8.5-10.1); CARBON DIOXIDE 19 mmol/L (21-32); GLUCOSE 157 mg/dl (70-99); POTASSIUM 4.5 mmol/L (3.5-5.1); SODIUM 138 mmol/L (136-145)
== END ==
LOC: C.LABUPNIT 08:34
PROVIDERS: ATTEND Nurse Practitioner Family
DX: E08.22 Diabetes mellitus due to underlying condition with diabetic chronic kidney disease (principal)

== ENCOUNTER → 2017-05-15 | Outpatient (CLI) | payer OTHER ==
[2017-05-15 09:18] LABS: BLOOD UREA NITROGEN 43 mg/dl (7-18); CALCIUM 9.1 mg/dl (8.5-10.1); CARBON DIOXIDE 22 mmol/L (21-32); CREATININE 1.74 mg/dl (0.60-1.40); GLUCOSE 116 mg/dl (70-99); POTASSIUM 3.6 mmol/L (3.5-5.1); SODIUM 141 mmol/L (136-145)
[2017-05-15 09:20] LABS: INR 3.7 (0.9-1.1)
[2017-05-15 14:17] LABS: INFLUENZA B ANTIGEN Neg for Influ B (NEG)
== END ==
LOC: C.LABUPNIT 08:36
PROVIDERS: ATTEND Nurse Practitioner Family
DX: I48.2 Chronic atrial fibrillation (principal); N18.3 Chronic kidney disease, stage 3 (moderate); R50.9 Fever, unspecified

== ENCOUNTER → 2017-05-16 | Outpatient (CLI) | payer OTHER ==
[2017-05-16 10:06] LABS: INR 2.8 (0.9-1.1)
[2017-05-16 10:08] LABS: BLOOD UREA NITROGEN 50 mg/dl (7-18); CALCIUM 8.8 mg/dl (8.5-10.1); CARBON DIOXIDE 23 mmol/L (21-32); CREATININE 1.83 mg/dl (0.60-1.40); GLUCOSE 68 mg/dl (70-99); POTASSIUM 3.5 mmol/L (3.5-5.1); SODIUM 140 mmol/L (136-145)
== END ==
LOC: C.LABUPNIT 08:42
PROVIDERS: ATTEND Nurse Practitioner Family
DX: I48.2 Chronic atrial fibrillation (principal); N18.3 Chronic kidney disease, stage 3 (moderate); I50.40 Unspecified combined systolic (congestive) and diastolic (congestive) heart failure

== ENCOUNTER 2017-05-19 11:45 | Inpatient (IN) | payer OTHER ==
[~2017-05-19] VITALS: Ht 190.5 cm; Wt 134.4 kg
[2017-05-19] VITALS (8 sets, daily range): BP systolic 68–130; BP diastolic 45–106; PULSE 77–110; TEMP 36.6–37; O2SAT 89–100; Ht 190.5 cm; Wt 134.4 kg
[~2017-05-19 11:45] MED LIST changes: -ALBU0.633 NEB; -BISA10SU3 PR; -CHOLPOW PO; -GABA-112 PO; -INSDGI SC; -LEVO1TAB35 PO; -METO2.5T PO; -NVLG SC; +POTA-639 PO; -POTA20TA16 PO; -SODI1ENE RE; -WARF5TAB90 PO
[2017-05-19] MEDS ORDERED: SODIUM CHLORIDE 0.9% 500ML 500 ML IV STA (11:57)
--- NOTE | 2017-05-19 12:02 | EMERGENCY ROOM VISIT NOTE ---
History Report prepared by Mick: Arcadio Ramon Under the Supervision of: Dr. Rex Reyes D.O. First contact with patient: 11:48 Chief Complaint: SYNCOPE Stated Complaint: SYNCOPE/RAPID A-FIB History of Present Illness The patient is an 81 year old male who presents to the Emergency Room via EMS with complaints of multiple syncopal episodes that started last night. Per EMS, the patient is from [facility], and had a syncopal episode last night and this morning, both of unknown length. The patient is noted to be a bit altered at baseline, but has been noted to be a bit more altered than normal today. The patient is currently being treated for pneumonia, and his lungs sound a bit junky, per EMS. He is on Levaquin, and takes Coumadin. The patient is a diabetic, and his sugars were noted to be normal today. He was able to stand up and move slowly upon EMS arrival. He had a pressure of 190 prior to arrival. The patient states that he has been having severe buttock pain, and denies ever passing out. Per EMS, the patient has pressure ulcers. He denies any chest pain or shortness of breath. He states that he has been eating and drinking pretty decent. The patient states that he was only recently brought to [facility]. Source of History: patient, EMS Onset: Last night Position: other (global) Symptom Intensity: 2 episodes Quality: other (syncope) Timing: other (episodes) Associated Symptoms: No chest pain, No SOB Note: Associated symptoms: Buttock pain. More altered. Review of Systems See HPI for pertinent positives & negatives. A total of 10 systems reviewed and were otherwise negative. Past Medical & Surgical Medical Problems: (1) Atrial fibrillation (2) CAD (coronary artery disease) (3) Cellulitis (4) Chronic gout (5) CKD (chronic kidney disease), stage III (6) DM type 2 (diabetes mellitus, type 2) (7) Dyslipidemia (8) GERD (gastroesophageal reflux disease) (9) HTN (hypertension) (10) Ischemic cardiomyopathy (11) SHAUNA (obstructive sleep apnea) (12) Renal calculi Surgical Problems: (1) H/O arthroscopic knee surgery (2) History of right shoulder replacement (3) Status post total knee replacement, left Family History Diabetes mellitus FH: cancer Social History Smoking Status: Unknown if Ever Smoked Housing Status: lives alone Occupation Status: retired Current/Historical Medications Scheduled Albuterol Sulfate (Albuterol Sulfate), 1 VIAL NEB Q4 Allopurinol (Zyloprim), 450 MG PO QAM Cholestyramine (Bulk) (Cholestyramine), 1 DOSE PO QID Ergocalciferol (Vitamin D2), 50,000 UNITS PO MONTHLY Furosemide (Furosemide), 80 MG PO BID Gabapentin (Neurontin), 200 MG PO TID Insulin Aspart (Novolog), 6 UNITS SC AC Insulin Aspart (Novolog), Unknown Dose SC AC Insulin Glargine (Lantus), 50 UNITS SC QAM Isosorbide Mononitrate Ext Rel (Imdur Ext Rel), 60 MG PO QAM Levofloxacin (Levaquin), 750 MG PO DAILY Lisinopril (Zestril), 20 MG PO DAILY Metolazone (Zaroxolyn), 2.5 MG PO DAILY Metoprolol Tartrate (Lopressor) (Lopressor), 50 MG PO BID Mirtazapine Soltab (Remeron Soltab), 15 MG PO HS Multivitamin (Multivitamin), 1 TAB PO DAILY Omeprazole (Prilosec), 40 MG PO BID Potassium Ext Rel (Klor-Con), 20 MEQ PO BID Prednisone (Prednisone), 5 MG PO DAILY Rosuvastatin Calcium (Crestor), 10 MG PO QPM Warfarin Sodium (Coumadin), 5 MG PO DAILY Scheduled PRN Acetaminophen Tab (Tylenol), 650 MG PO Q6H PRN for Pain or Fever Albuterol Hfa (Ventolin Hfa), 1-2 PUFFS INH Q6H PRN for SOB/Wheezing Bisacodyl (Dulcolax), 1 SUPP ME for Constipation Hydrocodone/Acetaminophen 5MG/325MG ([place] 5MG/325MG), 1 TABLET PO Q8 PRN for Pain Loperamide Hcl (Imodium), 2 MG PO Q6H PRN for LOOSE STOOL Nitroglycerin (Nitrostat), 0.4 MG UT PRN PRN for Chest Pain Ondansetron Hcl (Zofran), 4 MG PO Q6H PRN for Nausea Sennosides (Senna), 1 CAP PO DAILY PRN for Constipation Sodium Phosphates (Fleet Enema Six Pack), 1 DOSE RE for Constipation Allergies Coded Allergies: NO KNOWN DRUG ALLERGIES (Verified Allergy, Unknown, ., 05/19/17) Physical Exam Vital Signs Date Time Temp Pulse Resp B/P (MAP) Pulse Ox O2 Delivery O2 Flow Rate FiO2 05/19/17 14:02 103 28 114/73 97 Nasal Cannula 2.0 05/19/17 13:31 107 88/62 100 Nasal Cannula 2.0 05/19/17 13:23 113 69/51 88 Nasal Cannula 2.0 05/19/17 13:23 95 Nasal Cannula 2.0 05/19/17 12:32 142 110/72 05/19/17 12:14 153 91/73 95 Room Air 05/19/17 11:55 110 05/19/17 11:54 99 Room Air 05/19/17 11:51 36.5 121 22 105/66 99 Room Air Physical Exam GENERAL: Patient is awake, alert, non-anxious appearing and comfortable. EYES: The conjunctivae are clear. The pupils are round and reactive. EARS, NOSE, MOUTH AND THROAT: The nose is without any evidence of any deformity. Mucous membranes are dry tongue is midline NECK: The neck is nontender and supple. RESPIRATORY: Lung sounds were diminished at the right base. No tachypnea or conversational dyspnea was noted. CARDIOVASCULAR: Heart sounds were tachycardic and irregular. No definite murmur was noted. GASTROINTESTINAL: The abdomen is soft. Bowel sounds are present in all quadrants. Abdomen is nontender MUSCULOSKELETAL/EXTREMITIES: There is no evidence of gross deformity full range of motion is noted in the hips and shoulders SKIN: There is pedal edema bilaterally. NEUROLOGIC: Patient is awake alert and oriented x3. Medical Decision & Procedures ER Provider Diagnostic Interpretation: X-ray results as stated below per interpretation by me and the radiologist. CHEST ONE VIEW PORTABLE CLINICAL HISTORY: EVALUATE ALTERED MENTAL STATUS/WEAKNESS COMPARISON STUDY: Chest radiograph April 16, 2017. FINDINGS: Marked cardiomegaly is again noted. There are median sternotomy wires and clips from bypass grafting. There is pulmonary vascular congestion with suspected mild pulmonary edema. IMPRESSION: 1. Mild pulmonary edema. 2. Marked cardiomegaly, similar to prior exam. Electronically signed by: Nikko Mathur M.D. 05/19/2017 12:11 PM Dictated Date/Time: 05/19/2017 12:10 PM Laboratory Results 05/19/17 11:30 Red Blood Count 3.56, Mean Corpuscular Volume 92.7, Mean Corpuscular Hemoglobin 29.2, Mean Corpuscular Hemoglobin Concent 31.5, Mean Platelet Volume 10.0, Neutrophils (%) (Auto) 77.6, Lymphocytes (%) (Auto) 10.1, Monocytes (%) (Auto) 8.4, Eosinophils (%) (Auto) 3.6, Basophils (%) (Auto) 0.2, Neutrophils # (Auto) 6.22, Lymphocytes # (Auto) 0.81, Monocytes # (Auto) 0.67, Eosinophils # (Auto) 0.29, Basophils # (Auto) 0.02 05/19/17 11:30 Test 05/19/17 11:30 05/19/17 11:55 05/19/17 12:22 05/19/17 13:58 White Blood Count 8.02 K/uL (4.8-10.8) Red Blood Count 3.56 M/uL (4.7-6.1) Hemoglobin 10.4 g/dL (14.0-18.0) Hematocrit 33.0 % (42-52) Mean Corpuscular Volume 92.7 fL (80-100) Mean Corpuscular Hemoglobin 29.2 pg (25-34) Mean Corpuscular Hemoglobin Concent 31.5 g/dl (32-36) Platelet Count 142 K/uL (130-400) Mean Platelet Volume 10.0 fL (7.4-10.4) Neutrophils (%) (Auto) 77.6 % Lymphocytes (%) (Auto) 10.1 % Monocytes (%) (Auto) 8.4 % Eosinophils (%) (Auto) 3.6 % Basophils (%) (Auto) 0.2 % Neutrophils # (Auto) 6.22 K/uL (1.4-6.5) Lymphocytes # (Auto) 0.81 K/uL (1.2-3.4) Monocytes # (Auto) 0.67 K/uL (0.11-0.59) Eosinophils # (Auto) 0.29 K/uL (0-0.5) Basophils # (Auto) 0.02 K/uL (0-0.2) RDW Standard Deviation 60.7 fL (36.4-46.3) RDW Coefficient of Variation 18.0 % (11.5-14.5) Immature Granulocyte % (Auto) 0.1 % Immature Granulocyte # (Auto) 0.01 K/uL (0.00-0.02) Prothrombin Time 32.9 SECONDS (9.0-12.0) Prothromb Time International Ratio 3.2 (0.9-1.1) Activated Partial Thromboplast Time 46.4 SECONDS (21.0-31.0) Partial Thromboplastin Ratio 1.8 Est Creatinine Clear Calc Drug Dose 37.3 ml/min Estimated GFR () 29.6 Estimated GFR (Non- 25.5 BUN/Creatinine Ratio 27.9 (10-20) Calcium Level 8.8 mg/dl (8.5-10.1) Phosphorus Level 3.5 mg/dl (2.5-4.9) Magnesium Level 1.9 mg/dl (1.8-2.4) Total Bilirubin 0.5 mg/dl (0.2-1) Direct Bilirubin 0.2 mg/dl (0-0.2) Aspartate Amino Transf (AST/SGOT) 41 U/L (15-37) Alanine Aminotransferase (ALT/SGPT) 29 U/L (12-78) Alkaline Phosphatase 136 U/L (45-117) Total Creatine Kinase 285 U/L (39-308) Creatine Kinase MB 4.0 ng/ml (0.5-3.6) Creatine Kinase MB Ratio 1.4 (0-3.0) Pro-B-Type Natriuretic Peptide 9418 pg/ml (0-1800) Total Protein 6.4 gm/dl (6.4-8.2) Albumin 2.5 gm/dl (3.4-5.0) Lipase 115 U/L (73-393) Thyroid Stimulating Hormone (TSH) 1.710 uIu/ml (0.300-4.500) Bedside Hemoglobin 10.2 g/dl (14.0-18.0) Bedside Hematocrit 30 % (42-52) Bedside Sodium 138 mEq/L (135-144) Bedside Potassium 3.5 mEq/L (3.3-5.0) Bedside Chloride 102 mEq/L (101-112) Bedside Total CO2 23 mEq/l (24-31) Anion Gap 18.0 mmol/L (16-25) Bedside Blood Urea Nitrogen 55 mg/dl (7-18) Bedside Creatinine 2.1 mg/dl (0.6-1.3) Bedside Glucose (other) 167 mg/dl (70-99) Bedside Ionized Calcium (Sanjuanita) 1.18 mmol/l (1.12-1.32) Urine Color YELLOW Urine Appearance CLEAR (CLEAR) Urine pH 5.0 (4.5-7.5) Urine Specific [place] 1.015 (1.000-1.030) Urine Protein NEG (NEG) Urine Glucose (UA) NEG (NEG) Urine Ketones NEG (NEG) Urine Occult Blood 1+ (NEG) Urine Nitrite POS (NEG) Urine Bilirubin NEG (NEG) Urine Urobilinogen NEG (NEG) Urine Leukocyte Esterase MODERATE (NEG) Urine WBC (Auto) >30 /hpf (0-5) Urine RBC (Auto) 0-4 /hpf (0-4) Urine Hyaline Casts (Auto) 1-5 /lpf (0-5) Urine Epithelial Cells (Auto) 0-5 /lpf (0-5) Urine Bacteria (Auto) 2+ (NEG) Laboratory results per my review. Medications Administered Medications (Trade) Dose Ordered Sig/Aileen Route Start Time Stop Time Status Last Admin Dose Admin Sodium Chloride 500 ml @ 999 mls/hr Q31M STAT IV 05/19/17 11:57 05/19/17 12:27 DC 05/19/17 12:26 999 MLS/HR Sodium Chloride 1,000 ml @ 999 mls/hr Q1H1M STAT IV 05/19/17 13:23 05/19/17 14:23 05/19/17 13:31 999 MLS/HR Cefepime HCl 2000 mg/Dextrose 122 ml @ 200 mls/hr NOW STAT IV 05/19/17 13:25 05/19/17 14:01 DC 05/19/17 13:59 200 MLS/HR Vancomycin HCl 2000 mg/Sodium Chloride 540 ml @ 200 mls/hr ONE STAT IV 05/19/17 13:25 05/19/17 16:06 05/19/17 13:59 200 MLS/HR ECG Per My Interpretation Indication: syncope Rate (beats per minute): 129 Rhythm: atrial fibrillation (rapid) Findings: ST depression (Anterior, concerning for inferior and posterior wall AL), other (no PVCs, inferior ST changes with mild elevation, ) Comparison ECG Date: changes are new compared to 04/07/17 ED Course 1146: The patient was evaluated in room A1. A complete history and physical examination were performed. 1157: NSS 500 ml @ 999 mls/hr IV. 1323: NSS 1000 ml @ 999 mls/hr IV. 1325: Vancomycin HCl 2000 mg/Sodium Chloride 540 ml @ 200 mls/hr IV, Cefepime HCl 2000 mg/Dextrose 122 ml @ 200 mls/hr IV. 1412: Upon reevaluation, the patient is resting comfortably. I discussed results and treatment plan with him. He verbalizes agreement and understanding. The patient will be evaluated for further management and care. 1415: I discussed the patient with Vijaya Amaral. She will evaluate the patient for further treatment. Medical Decision Differential diagnosis: Etiologies such as vasovagal event, infection, hypoglycemia, electrolyte abnormalities, cardiac sources, intracerebral event, toxicologic, neurologic, as well as others were entertained. Nursing notes reviewed. Additional history is obtained from the prehospital personnel. The patient is an 81-year-old male who presented to the emergency department for an evaluation of syncope. The patient was noted to have some hypotension. 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 I was notified initially by the prehospital personnel because they thought his initial EKG appeared to be consistent with a STEMI. It was abnormal but appear to be very close to his previous EKG. For this reason as well as the fact that the patient does not have chest discomfort he was not made a hard alert. He was resuscitated using IV fluids and IV antibiotics. I discussed patient's laboratory and radiographic studies with him. I reviewed the patient's nursing documentation shows that he is comfort care. I did not want to over hydrate him for fear of pulmonary edema. I discussed his case with the on-call [facility] hospitalist group. They have agreed to evaluate the patient in the emergency department for further management and disposition. Medication Reconcilliation Current Medication List: was personally reviewed by me Blood Pressure Screening Patient's blood pressure: Normal blood pressure Consults Time Called: 141 Consulting Physician: Vijaya Amaral Returned Call: 1415 I discussed the patient with Vijaya Amaral. She will evaluate the patient for further treatment. Impression Primary Impression: Sepsis Additional Impressions: UTI (urinary tract infection) Syncope YAMEL (acute kidney injury) Scribe Attestation The scribe's documentation has been prepared under my direction and personally reviewed by me in its entirety. I confirm that the note above accurately reflects all work, treatment, procedures, and medical decision making performed by me. Departure Information Dispostion Being Evaluated By Hospitalist Referrals Ubaldo Estevez (PCP) Patient Instructions My [facility] Problem Qualifiers Primary Impression: Sepsis Sepsis type: sepsis due to unspecified organism Qualified Codes: A41.9 - Sepsis, unspecified organism Additional Impressions: UTI (urinary tract infection) Urinary tract infection type: site unspecified Hematuria presence: without hematuria Qualified Codes: N39.0 - Urinary tract infection, site not specified Syncope Syncope type: unspecified Qualified Codes: R55 - Syncope and collapse
[2017-05-19 12:03] LABS: BASO % 0.2 %; BASO ABS # 0.02 K/uL (0-0.2); EOS % 3.6 %; EOS ABS # 0.29 K/uL (0-0.5); HEMOGLOBIN 10.4 g/dL (14.0-18.0); IG# 0.01 K/uL (0.00-0.02); LYMPH % 10.1 %; LYMPH ABS # 0.81 K/uL (1.2-3.4); MEAN CELL VOLUME 92.7 fL (80-100); MEAN CORPUSCULAR HEMOGLOBIN 29.2 pg (25-34); MEAN CORPUSCULAR HGB CONC 31.5 g/dl (32-36); MONO % 8.4 %; MONO ABS # 0.67 K/uL (0.11-0.59); NEUT % 77.6 %; NEUT ABS # 6.22 K/uL (1.4-6.5); PLATELET COUNT 142 K/uL (130-400); RED CELL DISTRIBUTION WIDTH SD 60.7 fL (36.4-46.3); WHITE BLOOD COUNT 8.02 K/uL (4.8-10.8)
[2017-05-19 12:08] LABS: ISTAT CREATININE 2.1 mg/dl (0.6-1.3); ISTAT IONIZED CALCIUM 1.18 mmol/l (1.12-1.32); ISTAT POTASSIUM 3.5 mEq/L (3.3-5.0)
--- NOTE | 2017-05-19 12:13 | DIAGNOSTIC IMAGING REPORT ---
CHEST ONE VIEW PORTABLE CLINICAL HISTORY: EVALUATE ALTERED MENTAL STATUS/WEAKNESS COMPARISON STUDY: Chest radiograph April 16, 2017. FINDINGS: Marked cardiomegaly is again noted. There are median sternotomy wires and clips from bypass grafting. There is pulmonary vascular congestion with suspected mild pulmonary edema. IMPRESSION: 1. Mild pulmonary edema. 2. Marked cardiomegaly, similar to prior exam. Electronically signed by: Nikko Mathur M.D. 05/19/2017 12:11 PM Dictated Date/Time: 05/19/2017 12:10 PM
[2017-05-19 12:22] LABS: INR 3.2 (0.9-1.1)
[2017-05-19 12:24] LABS: ALBUMIN 2.5 gm/dl (3.4-5.0); CALCIUM 8.8 mg/dl (8.5-10.1); CREATININE 2.31 mg/dl (0.60-1.40); POTASSIUM 3.5 mmol/L (3.5-5.1)
[2017-05-19 12:33] LABS: PHOSPHORUS 3.5 mg/dl (2.5-4.9); PTT PATIENT 46.4 SECONDS (21.0-31.0); TOTAL PROTEIN 6.4 gm/dl (6.4-8.2)
[2017-05-19] MEDS ORDERED: WARF5TAB90 PO (13:11)
[2017-05-19] MEDS ORDERED: SODI1ENE RE (13:11)
[2017-05-19] MEDS ORDERED: HYDR-5688 PO (13:11)
[2017-05-19] MEDS ORDERED: GABA-112 PO (13:11)
[2017-05-19] MEDS ORDERED: ALBU0.633 NEB (13:11)
[2017-05-19] MEDS ORDERED: INSDGI SC (13:11)
[2017-05-19] MEDS ORDERED: BISA10SU3 PR (13:11)
[2017-05-19] MEDS ORDERED: LEVO1TAB35 PO (13:11)
[2017-05-19] MEDS ORDERED: CHOLPOW PO (13:11)
[2017-05-19] MEDS ORDERED: METO2.5T PO (13:11)
[2017-05-19] MEDS ORDERED: NVLG SC (13:11)
[2017-05-19] MEDS ORDERED: SODIUM CHLORIDE 0.9% 1000ML 1,000 ML IV STA (13:23)
[2017-05-19] MEDS ORDERED: VANCOMYCIN IV 2,000 MG in SODIUM CHLORIDE 0.9% 500ML 500 ML IV STA (13:25)
[2017-05-19] MEDS ORDERED: CEFEPIME IV 2,000 MG in DEXTROSE 5% 100ML 100 ML IV STA (13:25)
[2017-05-19] MEDS ORDERED: VANCOMYCIN CONSULT ACTIVE PRN (13:30)
[2017-05-19] MEDS ORDERED: MoRPHine SULFATE 2 MG/ML CARP IV STA (15:07)
[2017-05-19] MEDS ORDERED: GLUCAGON FOR INJ 1 MG VIAL SQ PRN (15:15)
[2017-05-19] MEDS ORDERED: SODIUM CHLORIDE 0.9% 1000ML 1,000 ML IV SCH ×2 (15:15→19:15)
[2017-05-19] MEDS ORDERED: DEXTROSE 50% 50 ML SYR IV PRN (15:15)
[2017-05-19] MEDS ORDERED: GLUCOSE 10 TABS/TUBE PO PRN (15:15)
[2017-05-19] MEDS ORDERED: ACETAMINOPHEN 325 MG TAB PO PRN (15:15)
[2017-05-19] MEDS ORDERED: ONDANSETRON INJ 2 MG/ML 2 ML VIAL IV PRN (15:15)
[2017-05-19] MEDS ORDERED: GLUCOSE 40% GEL 15 GM TUBE PO PRN (15:15)
--- NOTE | 2017-05-19 15:33 | History and Physical ---
History & Physical Date & Time of Service: May 19, 2017 at 15:33 Chief Complaint: Syncope/Rapid A-Fib Primary Care Physician: Ubaldo Estevez History of Present Illness Source: patient, clinic records, hospital records Patient is an 81yo M from [facility] with a PMH of chronic A Fib (on coumadin), systolic CHF, ischemic cardiomyopathy, deep tissue injury to sacrum, DM II, CKD III, gout (on long-term steroids) and other medical problems listed below who presents after a syncopal event last evening. Patient denies any syncopal events last night or in the past but according to the facility staff, he was being transferred with a [id number] and collapsed forward and was unresponsive for a few seconds. Vitals were checked after the event and were stable. Had another event last week during transfer from sitting to standing. Patient was recently admitted from Apr 05-April 14 for acute on chronic systolic CHF exacerbation and was treated with IV lasix. Patient's main concern is severe pain from chronic sacral wound for which he follows with wound care clinic. Notes increased pain over the past week, described as 10 out of 10 aching pain that is constant and worse with movement. Also has BLE pain secondary to gout for which he is on long-term steroids. Denies any fever, chills, lightheadedness, headache, visual changes, chest pain , SOB, abdominal pain, nausea, vomiting, dysuria or worsening LE swelling. Has chronic diarrhea. In ED, was found to be hypotensive with SBP fluctuating from 80s-90s. HR initially up to 150 with A Fib on EKG but decreased to ~105. No leukocytosis. Lactate elevated to 3.5 Creatinine elevated to 2.3 (baseline ~1.7). Given 1.5 L NSS and started on vanco and cefepime. Wound care attempted to debride and clean sacral wound but patient became hypotensive and hypoxic when turned. At rest, O2 saturation appropriate at 93%. Patient is a DNR. Is not interested in pressor support. Is okay with antibiotics and fluid hydration. Past Medical/Surgical History Medical Problems: (1) Atrial fibrillation Status: Chronic (2) CAD (coronary artery disease) Permanent Comment: 1994 - CABG x 5 Status: Chronic (3) Chronic gout Status: Chronic (4) CKD (chronic kidney disease), stage III Status: Chronic (5) DM type 2 (diabetes mellitus, type 2) Status: Chronic (6) Dyslipidemia Status: Chronic (7) GERD (gastroesophageal reflux disease) Status: Chronic (8) HTN (hypertension) Status: Chronic (9) Ischemic cardiomyopathy Status: Chronic (10) SHAUNA (obstructive sleep apnea) Status: Chronic (11) Renal calculi Status: Chronic Surgical Problems: (1) H/O arthroscopic knee surgery Status: Chronic (2) History of right shoulder replacement Status: Chronic (3) Status post total knee replacement, left Status: Chronic Family History Diabetes mellitus FH: cancer Social History Smoking Status: Unknown if Ever Smoked Alcohol Use: none Housing status: other Occupational Status: retired Immunizations History of Influenza Vaccine: Yes Influenza Vaccine Date: Oct 24, 2016 History of Tetanus Vaccine?: Yes Tetanus Immunization Date: Sep 10, 2008 History of Pneumococcal: Yes Pneumococcal Date: Feb 27, 2014 Allergies Coded Allergies: NO KNOWN DRUG ALLERGIES (Verified Allergy, Unknown, ., 05/19/17) Home Medications Scheduled Albuterol Sulfate (Albuterol Sulfate), 1 VIAL NEB Q4 Allopurinol (Zyloprim), 450 MG PO QAM Cholestyramine (Bulk) (Cholestyramine), 1 DOSE PO QID Ergocalciferol (Vitamin D2), 50,000 UNITS PO MONTHLY Furosemide (Furosemide), 80 MG PO BID Gabapentin (Neurontin), 200 MG PO TID Insulin Aspart (Novolog), 6 UNITS SC AC Insulin Aspart (Novolog), Unknown Dose SC AC Insulin Glargine (Lantus), 50 UNITS SC QAM Isosorbide Mononitrate Ext Rel (Imdur Ext Rel), 60 MG PO QAM Levofloxacin (Levaquin), 750 MG PO DAILY Lisinopril (Zestril), 20 MG PO DAILY Metolazone (Zaroxolyn), 2.5 MG PO DAILY Metoprolol Tartrate (Lopressor) (Lopressor), 50 MG PO BID Mirtazapine Soltab (Remeron Soltab), 15 MG PO HS Multivitamin (Multivitamin), 1 TAB PO DAILY Omeprazole (Prilosec), 40 MG PO BID Potassium Ext Rel (Klor-Con), 20 MEQ PO BID Prednisone (Prednisone), 5 MG PO DAILY Rosuvastatin Calcium (Crestor), 10 MG PO QPM Warfarin Sodium (Coumadin), 5 MG PO DAILY Scheduled PRN Acetaminophen Tab (Tylenol), 650 MG PO Q6H PRN for Pain or Fever Albuterol Hfa (Ventolin Hfa), 1-2 PUFFS INH Q6H PRN for SOB/Wheezing Bisacodyl (Dulcolax), 1 SUPP LA for Constipation Hydrocodone/Acetaminophen 5MG/325MG ([place] 5MG/325MG), 1 TABLET PO Q8 PRN for Pain Loperamide Hcl (Imodium), 2 MG PO Q6H PRN for LOOSE STOOL Nitroglycerin (Nitrostat), 0.4 MG UT PRN PRN for Chest Pain Ondansetron Hcl (Zofran), 4 MG PO Q6H PRN for Nausea Sennosides (Senna), 1 CAP PO DAILY PRN for Constipation Sodium Phosphates (Fleet Enema Six Pack), 1 DOSE RE for Constipation Review of Systems Ten systems reviewed and negative except as noted in the HPI. Physical Exam Vital Signs Date Time Temp Pulse Resp B/P (MAP) Pulse Ox O2 Delivery O2 Flow Rate FiO2 05/19/17 14:55 102 21 92/72 93 Nasal Cannula 2.0 05/19/17 14:40 106 87/66 Nasal Cannula 2.0 05/19/17 14:02 103 28 114/73 97 Nasal Cannula 2.0 05/19/17 13:31 107 88/62 100 Nasal Cannula 2.0 05/19/17 13:23 113 69/51 88 Nasal Cannula 2.0 05/19/17 13:23 95 Nasal Cannula 2.0 05/19/17 12:32 142 110/72 05/19/17 12:14 153 91/73 95 Room Air 05/19/17 11:55 110 05/19/17 11:54 99 Room Air 05/19/17 11:51 36.5 121 22 105/66 99 Room Air General Appearance: + mild distress, + obese Head: normocephalic, atraumatic Eyes: normal inspection, PERRL, sclerae normal ENT: normal ENT inspection, hearing grossly normal, pharynx normal Respiratory/Chest: chest non-tender, no respiratory distress, no accessory muscle use, + decreased breath sounds, + crackles (bibasilar crackles ), + pertinent finding (Saturating well on 2L NC at rest. Desats to 70-80s with movement ) Cardiovascular: normal peripheral pulses, + tachycardia Abdomen/GI: non tender, soft, no organomegaly Extremities/Musculoskelatal: no calf tenderness, + pertinent finding (BLE 1+ edema) Neurologic/Psych: no motor/sensory deficits, alert, normal mood/affect, oriented x 3 Skin: normal color, warm/dry, + pertinent finding (Pressure injuries to R dorsal foot, heel and fuller. L heel with discoloration. Unable to view DTI wound on sacrum due to hypoxic state ) Diagnostics Laboratory Results Results Past 24 Hours Test 05/19/17 11:30 05/19/17 11:55 05/19/17 11:58 05/19/17 12:22 Range/Units White Blood Count 8.02 4.8-10.8 K/uL Red Blood Count 3.56 4.7-6.1 M/uL Hemoglobin 10.4 14.0-18.0 g/dL Hematocrit 33.0 42-52 % Mean Corpuscular Volume 92.7 80-100 fL Mean Corpuscular Hemoglobin 29.2 25-34 pg Mean Corpuscular Hemoglobin Concent 31.5 32-36 g/dl Platelet Count 142 130-400 K/uL Mean Platelet Volume 10.0 7.4-10.4 fL Neutrophils (%) (Auto) 77.6 % Lymphocytes (%) (Auto) 10.1 % Monocytes (%) (Auto) 8.4 % Eosinophils (%) (Auto) 3.6 % Basophils (%) (Auto) 0.2 % Neutrophils # (Auto) 6.22 1.4-6.5 K/uL Lymphocytes # (Auto) 0.81 1.2-3.4 K/uL Monocytes # (Auto) 0.67 0.11-0.59 K/uL Eosinophils # (Auto) 0.29 0-0.5 K/uL Basophils # (Auto) 0.02 0-0.2 K/uL RDW Standard Deviation 60.7 36.4-46.3 fL RDW Coefficient of Variation 18.0 11.5-14.5 % Immature Granulocyte % (Auto) 0.1 % Immature Granulocyte # (Auto) 0.01 0.00-0.02 K/uL Prothrombin Time 32.9 9.0-12.0 SECONDS Prothromb Time International Ratio 3.2 0.9-1.1 Activated Partial Thromboplast Time 46.4 21.0-31.0 SECONDS Partial Thromboplastin Ratio 1.8 Sodium Level 137 136-145 mmol/L Potassium Level 3.5 3.5-5.1 mmol/L Chloride Level 103 98-107 mmol/L Carbon Dioxide Level 22 21-32 mmol/L Anion Gap 12.0 18.0 16-25 mmol/L Blood Urea Nitrogen 64 7-18 mg/dl Creatinine 2.31 0.60-1.40 mg/dl Est Creatinine Clear Calc Drug Dose 37.3 ml/min Estimated GFR () 29.6 Estimated GFR (Non- 25.5 BUN/Creatinine Ratio 27.9 10-20 Random Glucose 167 70-99 mg/dl Calcium Level 8.8 8.5-10.1 mg/dl Phosphorus Level 3.5 2.5-4.9 mg/dl Magnesium Level 1.9 1.8-2.4 mg/dl Total Bilirubin 0.5 0.2-1 mg/dl Direct Bilirubin 0.2 0-0.2 mg/dl Aspartate Amino Transf (AST/SGOT) 41 15-37 U/L Alanine Aminotransferase (ALT/SGPT) 29 12-78 U/L Alkaline Phosphatase 136 45-117 U/L Total Creatine Kinase 285 39-308 U/L Creatine Kinase MB 4.0 0.5-3.6 ng/ml Creatine Kinase MB Ratio 1.4 0-3.0 Pro-B-Type Natriuretic Peptide 9418 0-1800 pg/ml Total Protein 6.4 6.4-8.2 gm/dl Albumin 2.5 3.4-5.0 gm/dl Lipase 115 73-393 U/L Thyroid Stimulating Hormone (TSH) 1.710 0.300-4.500 uIu/ml Bedside Hemoglobin 10.2 14.0-18.0 g/dl Bedside Hematocrit 30 42-52 % Bedside Sodium 138 135-144 mEq/L Bedside Potassium 3.5 3.3-5.0 mEq/L Bedside Chloride 102 101-112 mEq/L Bedside Total CO2 23 24-31 mEq/l Bedside Blood Urea Nitrogen 55 7-18 mg/dl Bedside Creatinine 2.1 0.6-1.3 mg/dl Bedside Glucose (other) 167 70-99 mg/dl Bedside Ionized Calcium (Sanjuanita) 1.18 1.12-1.32 mmol/l Bedside Troponin I 0.810 0-0.045 ng/ml Urine Color YELLOW Urine Appearance CLEAR CLEAR Urine pH 5.0 4.5-7.5 Urine Specific [place] 1.015 1.000-1.030 Urine Protein NEG NEG Urine Glucose (UA) NEG NEG Urine Ketones NEG NEG Urine Occult Blood 1+ NEG Urine Nitrite POS NEG Urine Bilirubin NEG NEG Urine Urobilinogen NEG NEG Urine Leukocyte Esterase MODERATE NEG Urine WBC (Auto) >30 0-5 /hpf Urine RBC (Auto) 0-4 0-4 /hpf Urine Hyaline Casts (Auto) 1-5 0-5 /lpf Urine Epithelial Cells (Auto) 0-5 0-5 /lpf Urine Bacteria (Auto) 2+ NEG Test 05/19/17 13:58 Range/Units Lactic Acid Level 3.5 0.4-2.0 mmol/L Microbiology Results 05/19/17 Blood Culture, Received Pending 05/19/17 Blood Culture, Received Pending Diagnostic Radiology CXR: IMPRESSION: 1. Mild pulmonary edema. 2. Marked cardiomegaly, similar to prior exam. EKG A Fib with RVR at 129 bpm. Repeat EKG with A Fib at 90 bpm other (increased rate from previous EKGs. No other new findings ) Impression Assessment and Plan Patient is an 81yo M from [facility] with a PMH of chronic A Fib (on coumadin), systolic CHF, ischemic cardiomyopathy, deep tissue injury to sacrum, DM II, CKD III, gout (on long-term steroids) and other medical problems listed below who presents after a syncopal event last evening. Sepsis 2/2 UTI, possible sacral wound infection: -Hypotensive, HR >100. No leukocytosis -Lactate initially 3.5. Downtrending to 2.8 -Given aggressive IVF resuscitation per ideal body weight -Continue with maintenance fluids -Does not want pressors -Recent PNA treated with Levaquin -No evidence of PNA on CXR -UA +, possible sacral wound infection -Continue abx coverage with vanc and cefepime -Blood, urine and wound cultures pending -Monitor on telemetry -Monitor lactate Syncope: -Positional syncope reported last night -Likely vasovagal -No orthostatics now due to hypotension at rest -Echo from April 2017 with reduced EF of 30-35% -Monitor on telemetry Acute intermittent hypoxia: -Likely 2/2 severe pain -At rest, O2 saturation appropriate at 93% but desats with movement -Continue supplemental O2 Sacral wound, venous stasis ulcers on leg: -Main source of pain -Morphine PRN -Air mattress, waffle boots -Followed by wound care clinic -Wound care consulted -Culture pending YAMEL on CKD III: -Creatinine elevated to 2.3 (baseline ~1.7) -Likely 2/2 poor PO intake, lasix dose -IVF resuscitation -Repeat BMP in AM Systolic CHF: -Mild pulm edema on CXR -Lasix held in setting of sepsis, hypotension -Echo from April 2017 with reduced EF of 30-35% -Reassess tomorrow Troponin elevation: -Mildly elevated to 0.810 -Likely 2/2 CHF, sepsis -No CP or EKG changes -Trend troponin Chronic A Fib: -A fib with RVR on admission. Repeat with a fib at 90 bpm -Cont metoprolol -Hold coumadin with supratherapeutic INR of 3.2 -Monitor INR DM II: -Last a1c 7.9 in Mar 2017 -Hold home agents -Basal/bolus insulin per protocol -BSG AC HS HTN: -Hypotensive -Hold all BP medication for now CAD, HLD: -S/p CABG -Stable, no CP -Continue statin Chronic gout: -Cont allopurinol, prednisone Dispo: Patient is a DNR. Interested in comfort measures as well as antibiotics and fluid hydration. DVT Ppx: Coumadin held while INR is supratherapeutic. Code status: DNR PCP: Zenaida Dispo: Admitted to telemetry. Discharge planning ordered. Patient seen in collaboration with Dr. Car. Please see addendum. Resuscitation Status VTE Prophylaxis Will order VTE Prophylaxis: Yes
[2017-05-19] MEDS ORDERED: CEFEPIME CONSULT ACTIVE PRN (15:45)
[2017-05-19] MEDS ORDERED: NITROGLYCERIN 0.4 MG SL PER TAB CHARGE UT PRN (16:00)
[2017-05-19] MEDS ORDERED: LOPERAMIDE HCL 2 MG CAP PO PRN (16:15)
--- NOTE | 2017-05-19 16:17 | Pharmacy Progress Note ---
Pharmacy Abx Initial Consult Date of Service May 19, 2017. Pharmacy Dosing Scope Date of Consult: 05/19/17 Consultation requested by: BAYRON Hardin Pharmacy is consulted to initiate vancomycin and cefepime IV dosing therapy, order appropriate labs and adjust drug dose/frequency. Subjective The patient is a 81 year old male admitted on 05/19/17 Objective Height (Feet): 6 Height (Inches): 3.00 Weight (Kilograms): 136.200 (BMI = 37 kg/m2) Vital Signs (Past 12Hrs) Vital Signs Past 12 Hours Date Time Temp Pulse Resp B/P (MAP) Pulse Ox O2 Delivery O2 Flow Rate FiO2 05/19/17 14:55 102 21 92/72 93 Nasal Cannula 2.0 05/19/17 14:40 106 87/66 Nasal Cannula 2.0 05/19/17 14:02 103 28 114/73 97 Nasal Cannula 2.0 05/19/17 13:31 107 88/62 100 Nasal Cannula 2.0 05/19/17 13:23 113 69/51 88 Nasal Cannula 2.0 05/19/17 13:23 95 Nasal Cannula 2.0 05/19/17 12:32 142 110/72 05/19/17 12:14 153 91/73 95 Room Air 05/19/17 11:55 110 05/19/17 11:54 99 Room Air 05/19/17 11:51 36.5 121 22 105/66 99 Room Air Lab Results (24Hrs) Laboratory Tests (24 Hours) Test 05/19/17 11:30 05/19/17 13:58 White Blood Count 8.02 K/uL (4.8-10.8) Red Blood Count 3.56 M/uL (4.7-6.1) L Hemoglobin 10.4 g/dL (14.0-18.0) L Hematocrit 33.0 % (42-52) L Mean Corpuscular Volume 92.7 fL (80-100) Mean Corpuscular Hemoglobin 29.2 pg (25-34) Mean Corpuscular Hemoglobin Concent 31.5 g/dl (32-36) L Platelet Count 142 K/uL (130-400) Mean Platelet Volume 10.0 fL (7.4-10.4) Neutrophils (%) (Auto) 77.6 % Lymphocytes (%) (Auto) 10.1 % Monocytes (%) (Auto) 8.4 % Eosinophils (%) (Auto) 3.6 % Basophils (%) (Auto) 0.2 % Neutrophils # (Auto) 6.22 K/uL (1.4-6.5) Lymphocytes # (Auto) 0.81 K/uL (1.2-3.4) L Monocytes # (Auto) 0.67 K/uL (0.11-0.59) H Eosinophils # (Auto) 0.29 K/uL (0-0.5) Basophils # (Auto) 0.02 K/uL (0-0.2) Total Creatine Kinase 285 U/L (39-308) Lactic Acid Level 3.5 mmol/L (0.4-2.0) *H Micro Results Date/Time Source Procedure Growth Status 05/19/17 14:06 Blood Blood Culture Pending Received 05/19/17 13:58 Blood Blood Culture Pending Received Risk Factors for Resistance * Resident in a senior care or extended-care facility * 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 Previous dosing of 16.5 mg/kg q24h with SCr ~2.2 produced supratherapeutic levels. His baseline SCr seems to be ~1.7-1.8 and was this just a few days ago so will plan to dose vanc based upon baseline SCr, as I anticipate renal function to improve with fluids. It took awhile for his SCr to improve during his last admission but I'm not sure if this was related to the vanc/Zosyn combination? Plan Vancomycin IV * Est PK parameters with current SCr: Vd 0.55 L/kg, Willie 0.035, t1/2 19.8 hrs * Est PK parameters with baseline (~1.8) SCr: Vd 0.55 L/kg, Willie 0.048, t1/2 14.4 hrs * Loading dose: 2000 mg (15 mg/kg) - already given in the ER * Maintenance dose: 1500 mg IV (11 mg/kg) every 18 hours - start 14 hours after loading dose since this was not a full load * Goal trough level for sepsis 2/2 UTI/wound infection w/ cultures pending : 15 to 20 mcg/mL * Trough level ordered for 05/21/17 prior to the 4th dose - will be put on hold until level evaluated by RPh * A less than traditional dose and/or extended dosing interval has/have been selected due to likelihood of drug accumulation in obese patient/patient with h/ o CKD. Cefepime * Target dose 2 gm IV q12h for skin/skin structure and complicated UTI indications * Reduce to 2 gm IV q24h for CrCl 30-60 mL/min Pharmacy will continue to follow and will adjust dose/frequency as necessary. Thank you.
[2017-05-19] MEDS ORDERED: ALBUTEROL HFA 8 GM INHALER INH PRN (16:30)
[2017-05-19] MEDS: CHOLESTYRAMINE LIGHT 4 GM PKT PO SCH ×2 (17:00→21:00)
[2017-05-19] MEDS: INSULIN ASPART 100 UNITS/ML 3 ML PEN SC SCH ×2 (18:20→21:01)
[2017-05-19] MEDS: ALBUTEROL 0.083% NEBU SOLN 3 ML VIAL INH SCH ×2 (19:23→23:11)
[2017-05-19] MEDS: PANTOprazole SOD 40 MG TAB PO SCH (20:59)
[2017-05-19] MEDS: MIRTAZAPINE SOLTAB 15 MG PO SCH (20:59)
[2017-05-19] MEDS: GABAPENTIN 100 MG CAP PO SCH (20:59)
[2017-05-19] MEDS ORDERED: INSULIN GLARGINE SOLOSTAR 100 UNITS/ML 3 ML PEN SC SCH (21:00)
[2017-05-19] MEDS ORDERED: ROSUVASTATIN CALCIUM 10 MG TAB PO SCH (21:00)
[2017-05-19] MEDS: INSULIN GLARGINE SOLOSTAR 100 UNITS/ML 3 ML PEN SC SCH (21:01)
--- NOTE | 2017-05-19 21:51 | History and Physical ---
History & Physical Date of Service May 19, 2017. History & Physical This is an 81 year old male with a PMH of CAD s/p CABG, ischemic cardiomyopathy and systolic CHF with EF around 30-35%, chronic atrial fibrillation on long- term anticoagulation, insulin dependent DM2, CKD stage 3, HTN, chronic lower extremity swelling/venous stasis and wound ulcerations, as well as a decubitus sacral ulcer, chronic gout on long-term steroid use, SHAUNA on CPAP - presents with worsening back pain/pain from the wounds on R heel, sacrum. Was sent from [facility] due to possible syncopal episodes as well as altered mental status. Patient presents with hypotension, lactic acidosis. Patient is a DNR/DNI - does not want pressor support, does not want extraordinary measures; is okay with antibiotics and fluid resuscitation - main goal is comfort and improvement of pain. Plan: Patient states his main goal is pain control. will try IV morphine and will likely need pain management input wound care is consulted for the R heel ulcer and the sacral ulcer Air mattress ordered Patient is septic and hypotensive giving IV fluids for the hypotension; he has made it clear, he does not want pressors will give Vanco and Cefepime for broad spectrum; covering UTI and wound infections lactic acid is >3, trending down to 2.8; monitor Patient also has A. Fib with tachycardic episodes - giving fluids which his helping his rates Monitor for hypoxia, which is likely worsened by the pain.
--- NOTE | 2017-05-19 23:58 | Progress Note ---
Progress Note Date of Service May 19, 2017. Progress Note I was informed that the troponin is elevated 2 2.94 from initial 0.81. The patient was admitted with sepsis and is a DNR, he does not want any heroic measures to be done. The results of increased troponin and the possible cause being sepsis was discussed. He does not have any chest pain palpitation or any arrhythmias suggestive of ongoing ACS. He did not want to have IV heparin for this increased troponin which is doubtful for any acute ACS. Dr. Telma Grant
[2017-05-20] VITALS (13 sets, daily range): BP systolic 98–127; BP diastolic 68–99; PULSE 80–107; TEMP 36.4–36.7; O2SAT 94–100
[2017-05-20] MEDS: ALBUTEROL 0.083% NEBU SOLN 3 ML VIAL INH SCH ×6 (03:29→23:12)
[2017-05-20] MEDS ORDERED: VANCOMYCIN IV 1,500 MG in SODIUM CHLORIDE 0.9% 500ML 500 ML IV SCH (04:00)
[2017-05-20] MEDS: HYDROCODONE/ACETAMIN 5/325MG TAB PO PRN ×2 (04:38→21:51)
[2017-05-20 04:56] LABS: HEMATOCRIT 31.8 % (42-52); HEMOGLOBIN 10.5 g/dL (14.0-18.0); MEAN CELL VOLUME 91.4 fL (80-100); MEAN CORPUSCULAR HEMOGLOBIN 30.2 pg (25-34); MEAN PLATELET VOLUME 9.7 fL (7.4-10.4); PLATELET COUNT 126 K/uL (130-400); RED CELL DISTRIBUTION WIDTH CV 18.2 % (11.5-14.5); WHITE BLOOD COUNT 7.86 K/uL (4.8-10.8)
[2017-05-20 05:16] LABS: CALCIUM 8.5 mg/dl (8.5-10.1); CREATININE 2.31 mg/dl (0.60-1.40); POTASSIUM 3.4 mmol/L (3.5-5.1)
[2017-05-20] MEDS: INSULIN ASPART 100 UNITS/ML 3 ML PEN SC SCH ×4 (08:25→20:01)
[2017-05-20] MEDS: INSULIN GLARGINE SOLOSTAR 100 UNITS/ML 3 ML PEN SC SCH ×2 (08:25→20:02)
[2017-05-20] MEDS: GABAPENTIN 100 MG CAP PO SCH ×3 (08:26→20:03)
[2017-05-20] MEDS: CHOLESTYRAMINE LIGHT 4 GM PKT PO SCH ×4 (08:27→20:03)
[2017-05-20] MEDS: PANTOprazole SOD 40 MG TAB PO SCH ×2 (08:27→21:48)
[2017-05-20] MEDS: ALLOPURINOL 300 MG TAB PO SCH (08:27)
--- NOTE | 2017-05-20 11:02 | Cardiology Consultation ---
Cardiology Consultation Date of Service May 20, 2017. Cardiology Consultation Indication: Consultation for coronary artery disease History: This is a 81-year-old male patient with multiple medical problems who is a resident of [facility]. He was admitted for control of back pain due to decubitus ulcers on his sacrum as well as right heel. He has no current cardiac complaints. He denies shortness of breath or chest pain. He has had no dizziness or lightheadedness. No heart palpitations. Allergies: No known medical allergies Current Inpatient Medications Medications (Trade) Dose Ordered Sig/Aileen Route Start Time Stop Time Status Last Admin Dose Admin Miscellaneous Information (Consult) 1 ea UD PRN N/A 05/19/17 13:30 06/18/17 13:29 Acetaminophen (Tylenol Tab) 650 mg Q4H PRN PO 05/19/17 15:15 06/18/17 15:14 Ondansetron HCl (Zofran Inj) 4 mg Q6H PRN IV 05/19/17 15:15 06/18/17 15:14 Insulin Aspart (novoLOG ASPART) SLIDING SCALE If C... ACHS SC 05/19/17 16:00 06/18/17 15:59 05/19/17 21:01 1 UNITS Glucose (Glucose 40% Gel) 15-30 GRAMS 15 GRAMS... UD PRN PO 05/19/17 15:15 06/18/17 15:14 Glucose (Glucose Chew Tab) 4-8 Tablets 4 Tabl... UD PRN PO 05/19/17 15:15 06/18/17 15:14 Dextrose (Dextrose 50% 50ML Syringe) 25-50ML OF 50% DW IV FOR... UD PRN IV 05/19/17 15:15 06/18/17 15:14 Glucagon (Glucagon Inj) 1 mg UD PRN SQ 05/19/17 15:15 06/18/17 15:14 Cefepime HCl (Consult) 1 ea UD PRN N/A 05/19/17 15:45 06/18/17 15:44 Morphine Sulfate (MoRPHine SULFATE INJ) 2 mg Q4 PRN IV 05/19/17 15:15 06/02/17 15:14 Acetaminophen/ Hydrocodone Bitart ([place] 5/325 Tab) 1 tab Q4 PRN PO 05/19/17 15:15 06/02/17 15:14 05/20/17 04:38 1 TAB Albuterol (Ventolin Hfa Inhaler) 1 puffs Q6H PRN INH 05/19/17 16:30 06/18/17 16:29 Allopurinol (Zyloprim Tab) 450 mg QAM PO 05/20/17 09:00 06/19/17 08:59 05/20/17 08:27 450 MG Gabapentin (Neurontin Cap) 200 mg TID PO 05/19/17 21:00 06/18/17 20:59 05/20/17 08:26 200 MG Loperamide HCl (Imodium Cap) 2 mg Q6H PRN PO 05/19/17 16:15 06/18/17 16:14 05/19/17 21:00 2 MG Mirtazapine (Remeron Solutab) 15 mg HS PO 05/19/17 21:00 06/18/17 20:59 05/19/17 20:59 15 MG Nitroglycerin (Nitrostat Tab) 0.4 mg PRN PRN UT 05/19/17 16:00 06/18/17 15:59 Prednisone (PredniSONE TAB) 5 mg DAILY PO 05/20/17 09:00 06/19/17 08:59 05/20/17 08:26 5 MG Albuterol Sulfate (Ventolin 0.083% 2.5MG/3ML Neb) 2.5 mg Q4R INH 05/19/17 20:00 06/18/17 19:59 05/20/17 07:11 2.5 MG Cholestyramine Resin (Questran Powder Light) 4 gm QID PO 05/19/17 17:00 06/18/17 16:59 Pantoprazole Sodium (Protonix Tab) 40 mg BID PO 05/19/17 21:00 06/18/17 20:59 05/20/17 08:27 40 MG Cefepime HCl 2000 mg/Syringe 20 ml @ 5 mls/min Q24H IV 05/20/17 14:00 05/29/17 13:59 Vancomycin HCl 1500 mg/Sodium Chloride 530 ml @ 200 mls/hr Q18H IV 05/20/17 04:00 05/29/17 23:59 Future Hold 05/20/17 04:36 200 MLS/HR Insulin Glargine (Lantus Solostar Pen) For BSG <120, give 0 un... Q12 SC 05/19/17 21:00 06/18/17 20:59 05/19/17 21:01 15 UNITS Past medical history: 1. Atherosclerotic coronary disease, status post coronary artery bypass grafting x5 in September 1994. 2. 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 3. Chronic atrial fibrillation. 4. Hypertension. 5. Hyperlipidemia. 6. Longstanding diabetes mellitus with associated diabetic neuropathy/ gastroparesis. 7. Obstructive sleep apnea on CPAP and oxygen supplementation. 8. History of Veloz esophagus. 9. History of past pulmonary embolus in February 2012. 10. Bilateral heel decubitus ulcers on outpatient Cipro and doxycycline from the wound clinic. 11. Chronic kidney disease Social history: Patient is a resident of [facility]. He is a non -smoker. Family medical history noncontributory General: The patient denies weight change, night sweats, fever, chills. Head: The patient denies headache and prior head trauma. Cardiovascular: The patient denies chest pain or chest discomfort, dyspnea on exertion, palpitations, PND, orthopnea, edema, spontaneous shortness of breath, syncope and near syncope. Pulmonary: The patient denies cough, wheeze, pleurisy, hemoptysis, sputum, and excessive snoring. Gastrointestinal: The patient denies nausea, vomiting, diarrhea, constipation, bloating, hematemesis, hematochezia, and abdominal pain. Skin: The patient denies diaphoresis and rash. Musculoskeletal: The patient denies joint pain, joint swelling, myalgia, back pain, neck pain and prior injuries. Neurological: The patient denies prior stroke and seizures Vital Signs Past 12 Hours Date Time Temp Pulse Resp B/P (MAP) Pulse Ox O2 Delivery O2 Flow Rate FiO2 05/20/17 08:00 Nasal Cannula 2.0 05/20/17 07:49 36.4 91 21 125/72 (89) 98 BiPAP 05/20/17 07:12 89 18 96 BiPAP/CPAP 2.0 05/20/17 04:22 36.5 80 20 127/86 (100) 100 05/20/17 04:00 CPAP 05/20/17 03:30 85 95 2.0 05/20/17 03:29 85 20 95 BiPAP/CPAP 2.0 05/20/17 00:01 CPAP 05/19/17 23:22 37.0 84 22 108/75 (86) 96 CPAP 05/19/17 23:14 77 98 2.0 05/19/17 23:11 77 14 98 Nasal Cannula 2.0 General Appearance: Alert and Oriented x3. NAD. Head: Normocephalic Atraumatic. Eyes: PERRLA, EOMI, conjunctiva and sclera clear Neck: Supple. No carotid bruits noted. No JVD. No HJD. Respiratory: Breath sounds clear to auscultation bilaterally. No w/r/r. Cardiovascular: Reg rate and rhythm. S1 and S2 noted. No murmurs, rubs, gallops. PMI non displace. Abdomen: Normal bowel sounds, soft nontender. no abdominal bruits. Extremities: No edema, no clubbing or cyanosis. distal pulses 2/4 bilaterally. Neuro: No focal deficits. Psychiatric: Normal affect. Last 24 Hours Test 05/19/17 11:30 05/19/17 11:55 05/19/17 11:58 05/19/17 12:22 White Blood Count 8.02 K/uL Red Blood Count 3.56 M/uL Hemoglobin 10.4 g/dL Hematocrit 33.0 % Mean Corpuscular Volume 92.7 fL Mean Corpuscular Hemoglobin 29.2 pg Mean Corpuscular Hemoglobin Concent 31.5 g/dl Platelet Count 142 K/uL Mean Platelet Volume 10.0 fL Neutrophils (%) (Auto) 77.6 % Lymphocytes (%) (Auto) 10.1 % Monocytes (%) (Auto) 8.4 % Eosinophils (%) (Auto) 3.6 % Basophils (%) (Auto) 0.2 % Neutrophils # (Auto) 6.22 K/uL Lymphocytes # (Auto) 0.81 K/uL Monocytes # (Auto) 0.67 K/uL Eosinophils # (Auto) 0.29 K/uL Basophils # (Auto) 0.02 K/uL RDW Standard Deviation 60.7 fL RDW Coefficient of Variation 18.0 % Immature Granulocyte % (Auto) 0.1 % Immature Granulocyte # (Auto) 0.01 K/uL Prothrombin Time 32.9 SECONDS Prothromb Time International Ratio 3.2 Activated Partial Thromboplast Time 46.4 SECONDS Partial Thromboplastin Ratio 1.8 Sodium Level 137 mmol/L Potassium Level 3.5 mmol/L Chloride Level 103 mmol/L Carbon Dioxide Level 22 mmol/L Anion Gap 12.0 mmol/L 18.0 mmol/L Blood Urea Nitrogen 64 mg/dl Creatinine 2.31 mg/dl Est Creatinine Clear Calc Drug Dose 37.3 ml/min Estimated GFR () 29.6 Estimated GFR (Non- 25.5 BUN/Creatinine Ratio 27.9 Random Glucose 167 mg/dl Calcium Level 8.8 mg/dl Phosphorus Level 3.5 mg/dl Magnesium Level 1.9 mg/dl Total Bilirubin 0.5 mg/dl Direct Bilirubin 0.2 mg/dl Aspartate Amino Transf (AST/SGOT) 41 U/L Alanine Aminotransferase (ALT/SGPT) 29 U/L Alkaline Phosphatase 136 U/L Total Creatine Kinase 285 U/L Creatine Kinase MB 4.0 ng/ml Creatine Kinase MB Ratio 1.4 Pro-B-Type Natriuretic Peptide 9418 pg/ml Total Protein 6.4 gm/dl Albumin 2.5 gm/dl Lipase 115 U/L Thyroid Stimulating Hormone (TSH) 1.710 uIu/ml Bedside Hemoglobin 10.2 g/dl Bedside Hematocrit 30 % Bedside Sodium 138 mEq/L Bedside Potassium 3.5 mEq/L Bedside Chloride 102 mEq/L Bedside Total CO2 23 mEq/l Bedside Blood Urea Nitrogen 55 mg/dl Bedside Creatinine 2.1 mg/dl Bedside Glucose (other) 167 mg/dl Bedside Ionized Calcium ([place]) 1.18 mmol/l Bedside Troponin I 0.810 ng/ml Urine Color YELLOW Urine Appearance CLEAR Urine pH 5.0 Urine Specific [place] 1.015 Urine Protein NEG Urine Glucose (UA) NEG Urine Ketones NEG Urine Occult Blood 1+ Urine Nitrite POS Urine Bilirubin NEG Urine Urobilinogen NEG Urine Leukocyte Esterase MODERATE Urine WBC (Auto) >30 /hpf Urine RBC (Auto) 0-4 /hpf Urine Hyaline Casts (Auto) 1-5 /lpf Urine Epithelial Cells (Auto) 0-5 /lpf Urine Bacteria (Auto) 2+ Test 05/19/17 13:58 05/19/17 17:10 05/19/17 17:16 05/19/17 20:37 Lactic Acid Level 3.5 mmol/L 2.8 mmol/L Bedside Glucose 161 mg/dl 163 mg/dl Test 05/19/17 22:51 05/20/17 04:47 05/20/17 06:35 Lactic Acid Level 1.4 mmol/L 1.9 mmol/L Troponin I 2.940 ng/ml 5.210 ng/ml White Blood Count 7.86 K/uL Red Blood Count 3.48 M/uL Hemoglobin 10.5 g/dL Hematocrit 31.8 % Mean Corpuscular Volume 91.4 fL Mean Corpuscular Hemoglobin 30.2 pg Mean Corpuscular Hemoglobin Concent 33.0 g/dl RDW Standard Deviation 60.0 fL RDW Coefficient of Variation 18.2 % Platelet Count 126 K/uL Mean Platelet Volume 9.7 fL Prothrombin Time 30.4 SECONDS Prothromb Time International Ratio 3.0 Sodium Level 137 mmol/L Potassium Level 3.4 mmol/L Chloride Level 107 mmol/L Carbon Dioxide Level 22 mmol/L Anion Gap 8.0 mmol/L Blood Urea Nitrogen 68 mg/dl Creatinine 2.31 mg/dl Est Creatinine Clear Calc Drug Dose 37.4 ml/min Estimated GFR () 29.6 Estimated GFR (Non- 25.5 BUN/Creatinine Ratio 29.5 Random Glucose 109 mg/dl Calcium Level 8.5 mg/dl Bedside Glucose 108 mg/dl Impression/recommendations: This is an 81-year-old male patient with a history of coronary artery bypass surgery 1994 and chronic angina as well as chronic atrial fibrillation. He has had a long history of decubitus ulcers and is now admitted for pain management for sacral decubitus from the [facility]. He has no current active cardiac problems. I would recommend no additional cardiac testing. It would not be unreasonable I think for palliative medicine consult. We will see this patient on an as-needed basis.
--- NOTE | 2017-05-20 13:39 | Pharmacy Progress Note ---
Pharmacy Abx Dose Short Note Date of Service May 20, 2017. Assessment & Plan Assessment 81 year old male receiving vancomycin for treatment of sepsis/UTI/wound infection. Day # 2 of antimicrobial therapy. Plan Vancomycin * Current dosing is based on patient's baseline SCr of 1.7. Since level remains at 2.3, dosing is adjusted to q 24h. * Change to 1500 mg IV every 24 hours * Goal trough level for sepsis: 15 to 20 mcg/mL * Trough or random level ordered for: 05/22 prior to 0400 dose. Pharmacy will continue to follow and will adjust dose/frequency as necessary. Thank you.
--- NOTE | 2017-05-20 14:48 | Progress Note ---
Medicine Progress Note Date & Time of Visit: May 20, 2017 at 10:55. Subjective 81-year-old man transferred from [facility] for worsening pain in his sacrum. He was found to have sepsis secondary to UTI versus possible superimposed sacral wound infection. He has chronic medical problems including chronic diastolic heart failure secondary to coronary artery disease, chronic A. fib on Coumadin, diabetes, chronic gout with chronic leg weakness. The patient states that he did not lose consciousness at any point and did not fall at while he was at her side, however, a syncopal event was reported in the records. Overnight review of telemetry reveals no acute events. The patient is feeling better than he did yesterday overall. He reports chronic pain in his ankles from gout but otherwise is feeling well. He is not working to breathe, denies chest pain, denies palpitations, is tolerating p.o., and is mentating at baseline. He reports not moving much at baseline from sitting or lying positions. He does go to the wound care center for care of his sacral decubitus ulcer. Objective Last 8 Hrs Date Time Temp Pulse Resp B/P (MAP) Pulse Ox O2 Delivery O2 Flow Rate FiO2 05/20/17 08:00 Nasal Cannula 2.0 05/20/17 07:49 36.4 91 21 125/72 (89) 98 BiPAP 05/20/17 07:12 89 18 96 BiPAP/CPAP 2.0 05/20/17 04:22 36.5 80 20 127/86 (100) 100 05/20/17 04:00 CPAP 05/20/17 03:30 85 95 2.0 05/20/17 03:29 85 20 95 BiPAP/CPAP 2.0 Physical Exam: GEN: obese, in no acute distress, alert and appropriate, generalized weakness HEENT: NC/AT, PERRL, normal sclerae, MM are dry CARDIO: reg rate, S1/2 heard without m/g/r LUNGS: CTA bilaterally, no crackles, rales or wheezes, good diaphragmatic excursion ABD: soft, non-tender, non-distended, no rebound or guarding EXTREMITY: RP and DP palpable 2+ bilat, no LE swelling or edema, extremities are warm and well-perfused NEURO: CN 2-12 grossly intact MUSC: 5/5 strength throughout, no focal deficits SKIN: warm and dry, venous leg ulcers on lower L leg, darkened purple discoloration to lower extremities anteriorly, stag II decubiti on buttocks near intergluteal fold. Laboratory Results: 05/20/17 04:47 05/20/17 04:47 Test 05/19/17 11:30 05/19/17 11:55 05/19/17 11:58 05/19/17 12:22 Immature Granulocyte % (Auto) 0.1 % White Blood Count 8.02 K/uL (4.8-10.8) Red Blood Count 3.56 M/uL (4.7-6.1) Hemoglobin 10.4 g/dL (14.0-18.0) Hematocrit 33.0 % (42-52) Mean Corpuscular Volume 92.7 fL (80-100) Mean Corpuscular Hemoglobin 29.2 pg (25-34) Mean Corpuscular Hemoglobin Concent 31.5 g/dl (32-36) Platelet Count 142 K/uL (130-400) Mean Platelet Volume 10.0 fL (7.4-10.4) Neutrophils (%) (Auto) 77.6 % Lymphocytes (%) (Auto) 10.1 % Monocytes (%) (Auto) 8.4 % Eosinophils (%) (Auto) 3.6 % Basophils (%) (Auto) 0.2 % Neutrophils # (Auto) 6.22 K/uL (1.4-6.5) Lymphocytes # (Auto) 0.81 K/uL (1.2-3.4) Monocytes # (Auto) 0.67 K/uL (0.11-0.59) Eosinophils # (Auto) 0.29 K/uL (0-0.5) Basophils # (Auto) 0.02 K/uL (0-0.2) Immature Granulocyte # (Auto) 0.01 K/uL (0.00-0.02) Activated Partial Thromboplast Time 46.4 SECONDS (21.0-31.0) Partial Thromboplastin Ratio 1.8 Phosphorus Level 3.5 mg/dl (2.5-4.9) Magnesium Level 1.9 mg/dl (1.8-2.4) Total Bilirubin 0.5 mg/dl (0.2-1) Direct Bilirubin 0.2 mg/dl (0-0.2) Aspartate Amino Transf (AST/SGOT) 41 U/L (15-37) Alanine Aminotransferase (ALT/SGPT) 29 U/L (12-78) Alkaline Phosphatase 136 U/L (45-117) Total Creatine Kinase 285 U/L (39-308) Creatine Kinase MB 4.0 ng/ml (0.5-3.6) Creatine Kinase MB Ratio 1.4 (0-3.0) Pro-B-Type Natriuretic Peptide 9418 pg/ml (0-1800) Total Protein 6.4 gm/dl (6.4-8.2) Albumin 2.5 gm/dl (3.4-5.0) Lipase 115 U/L (73-393) Thyroid Stimulating Hormone (TSH) 1.710 uIu/ml (0.300-4.500) Bedside Hemoglobin 10.2 g/dl (14.0-18.0) Bedside Hematocrit 30 % (42-52) Bedside Sodium 138 mEq/L (135-144) Bedside Potassium 3.5 mEq/L (3.3-5.0) Bedside Chloride 102 mEq/L (101-112) Bedside Total CO2 23 mEq/l (24-31) Bedside Blood Urea Nitrogen 55 mg/dl (7-18) Bedside Creatinine 2.1 mg/dl (0.6-1.3) Bedside Glucose (other) 167 mg/dl (70-99) Bedside Ionized Calcium (Sanjuanita) 1.18 mmol/l (1.12-1.32) Bedside Troponin I 0.810 ng/ml (0-0.045) Urine Color YELLOW Urine Appearance CLEAR (CLEAR) Urine pH 5.0 (4.5-7.5) Urine Specific [place] 1.015 (1.000-1.030) Urine Protein NEG (NEG) Urine Glucose (UA) NEG (NEG) Urine Ketones NEG (NEG) Urine Occult Blood 1+ (NEG) Urine Nitrite POS (NEG) Urine Bilirubin NEG (NEG) Urine Urobilinogen NEG (NEG) Urine Leukocyte Esterase MODERATE (NEG) Urine WBC (Auto) >30 /hpf (0-5) Urine RBC (Auto) 0-4 /hpf (0-4) Urine Hyaline Casts (Auto) 1-5 /lpf (0-5) Urine Epithelial Cells (Auto) 0-5 /lpf (0-5) Urine Bacteria (Auto) 2+ (NEG) Test 05/20/17 04:47 05/20/17 11:07 Red Blood Count 3.48 M/uL (4.7-6.1) Mean Corpuscular Volume 91.4 fL (80-100) Mean Corpuscular Hemoglobin 30.2 pg (25-34) Mean Corpuscular Hemoglobin Concent 33.0 g/dl (32-36) RDW Standard Deviation 60.0 fL (36.4-46.3) RDW Coefficient of Variation 18.2 % (11.5-14.5) Mean Platelet Volume 9.7 fL (7.4-10.4) Prothrombin Time 30.4 SECONDS (9.0-12.0) Prothromb Time International Ratio 3.0 (0.9-1.1) Anion Gap 8.0 mmol/L (3-11) Est Creatinine Clear Calc Drug Dose 37.4 ml/min Estimated GFR () 29.6 Estimated GFR (Non- 25.5 BUN/Creatinine Ratio 29.5 (10-20) Lactic Acid Level 1.9 mmol/L (0.4-2.0) Calcium Level 8.5 mg/dl (8.5-10.1) Troponin I 5.210 ng/ml (0-0.045) Bedside Glucose 99 mg/dl (70-99) Date/Time Source Procedure Growth Status 05/19/17 14:06 Blood Blood Culture Pending Received 05/19/17 17:34 Nasal MRSA DNA Surveillance Screen - Final Specimen Negative for MRSA by DNA Probe Complete 05/19/17 17:30 Stool C.difficile Toxin B Gene (PCR) - Final No C. difficile toxin B gene detected Complete 05/19/17 12:22 Urine , Clean Catch Urine Culture - Preliminary Gram Negative Bacilli Resulted 05/19/17 19:15 Skin Sacrum Gram Stain - Final Resulted 05/19/17 19:15 Wound Culture - Preliminary Gram Positive Cocci Resulted Last 24 Hours Test 05/19/17 11:30 05/19/17 11:55 05/19/17 11:58 05/19/17 12:22 White Blood Count 8.02 K/uL Red Blood Count 3.56 M/uL Hemoglobin 10.4 g/dL Hematocrit 33.0 % Mean Corpuscular Volume 92.7 fL Mean Corpuscular Hemoglobin 29.2 pg Mean Corpuscular Hemoglobin Concent 31.5 g/dl Platelet Count 142 K/uL Mean Platelet Volume 10.0 fL Neutrophils (%) (Auto) 77.6 % Lymphocytes (%) (Auto) 10.1 % Monocytes (%) (Auto) 8.4 % Eosinophils (%) (Auto) 3.6 % Basophils (%) (Auto) 0.2 % Neutrophils # (Auto) 6.22 K/uL Lymphocytes # (Auto) 0.81 K/uL Monocytes # (Auto) 0.67 K/uL Eosinophils # (Auto) 0.29 K/uL Basophils # (Auto) 0.02 K/uL RDW Standard Deviation 60.7 fL RDW Coefficient of Variation 18.0 % Immature Granulocyte % (Auto) 0.1 % Immature Granulocyte # (Auto) 0.01 K/uL Prothrombin Time 32.9 SECONDS Prothromb Time International Ratio 3.2 Activated Partial Thromboplast Time 46.4 SECONDS Partial Thromboplastin Ratio 1.8 Sodium Level 137 mmol/L Potassium Level 3.5 mmol/L Chloride Level 103 mmol/L Carbon Dioxide Level 22 mmol/L Anion Gap 12.0 mmol/L 18.0 mmol/L Blood Urea Nitrogen 64 mg/dl Creatinine 2.31 mg/dl Est Creatinine Clear Calc Drug Dose 37.3 ml/min Estimated GFR () 29.6 Estimated GFR (Non- 25.5 BUN/Creatinine Ratio 27.9 Random Glucose 167 mg/dl Calcium Level 8.8 mg/dl Phosphorus Level 3.5 mg/dl Magnesium Level 1.9 mg/dl Total Bilirubin 0.5 mg/dl Direct Bilirubin 0.2 mg/dl Aspartate Amino Transf (AST/SGOT) 41 U/L Alanine Aminotransferase (ALT/SGPT) 29 U/L Alkaline Phosphatase 136 U/L Total Creatine Kinase 285 U/L Creatine Kinase MB 4.0 ng/ml Creatine Kinase MB Ratio 1.4 Pro-B-Type Natriuretic Peptide 9418 pg/ml Total Protein 6.4 gm/dl Albumin 2.5 gm/dl Lipase 115 U/L Thyroid Stimulating Hormone (TSH) 1.710 uIu/ml Bedside Hemoglobin 10.2 g/dl Bedside Hematocrit 30 % Bedside Sodium 138 mEq/L Bedside Potassium 3.5 mEq/L Bedside Chloride 102 mEq/L Bedside Total CO2 23 mEq/l Bedside Blood Urea Nitrogen 55 mg/dl Bedside Creatinine 2.1 mg/dl Bedside Glucose (other) 167 mg/dl Bedside Ionized Calcium (Sanjuanita) 1.18 mmol/l Bedside Troponin I 0.810 ng/ml Urine Color YELLOW Urine Appearance CLEAR Urine pH 5.0 Urine Specific [place] 1.015 Urine Protein NEG Urine Glucose (UA) NEG Urine Ketones NEG Urine Occult Blood 1+ Urine Nitrite POS Urine Bilirubin NEG Urine Urobilinogen NEG Urine Leukocyte Esterase MODERATE Urine WBC (Auto) >30 /hpf Urine RBC (Auto) 0-4 /hpf Urine Hyaline Casts (Auto) 1-5 /lpf Urine Epithelial Cells (Auto) 0-5 /lpf Urine Bacteria (Auto) 2+ Test 05/19/17 13:58 05/19/17 17:10 05/19/17 17:16 05/19/17 20:37 Lactic Acid Level 3.5 mmol/L 2.8 mmol/L Bedside Glucose 161 mg/dl 163 mg/dl Test 05/19/17 22:51 05/20/17 04:47 05/20/17 06:35 Lactic Acid Level 1.4 mmol/L 1.9 mmol/L Troponin I 2.940 ng/ml 5.210 ng/ml White Blood Count 7.86 K/uL Red Blood Count 3.48 M/uL Hemoglobin 10.5 g/dL Hematocrit 31.8 % Mean Corpuscular Volume 91.4 fL Mean Corpuscular Hemoglobin 30.2 pg Mean Corpuscular Hemoglobin Concent 33.0 g/dl RDW Standard Deviation 60.0 fL RDW Coefficient of Variation 18.2 % Platelet Count 126 K/uL Mean Platelet Volume 9.7 fL Prothrombin Time 30.4 SECONDS Prothromb Time International Ratio 3.0 Sodium Level 137 mmol/L Potassium Level 3.4 mmol/L Chloride Level 107 mmol/L Carbon Dioxide Level 22 mmol/L Anion Gap 8.0 mmol/L Blood Urea Nitrogen 68 mg/dl Creatinine 2.31 mg/dl Est Creatinine Clear Calc Drug Dose 37.4 ml/min Estimated GFR () 29.6 Estimated GFR (Non- 25.5 BUN/Creatinine Ratio 29.5 Random Glucose 109 mg/dl Calcium Level 8.5 mg/dl Bedside Glucose 108 mg/dl Date/Time Source Procedure Growth Status 05/19/17 14:06 Blood Blood Culture Pending Received 05/19/17 13:58 Blood Blood Culture Pending Received 05/19/17 17:34 Nasal MRSA DNA Surveillance Screen - Final Specimen Negative for MRSA by DNA Probe Complete 05/19/17 17:30 Stool C.difficile Toxin B Gene (PCR) - Final No C. difficile toxin B gene detected Complete 05/19/17 17:30 Stool Shiga Toxin Test Pending Received 05/19/17 17:30 Stool Stool Culture Pending Received 05/19/17 12:22 Urine , Clean Catch Urine Culture - Preliminary Gram Negative Bacilli Resulted 05/19/17 19:15 Skin Sacrum Gram Stain - Final Resulted 05/19/17 19:15 Skin Sacrum Wound Culture Pending Resulted Assessment & Plan 81-year-old man transferred from [facility] for worsening pain in his sacrum. He was found to have sepsis secondary to UTI versus possible superimposed sacral wound infection. He has chronic medical problems including chronic diastolic heart failure secondary to coronary artery disease, chronic A. fib on Coumadin, diabetes, chronic gout with chronic leg weakness. The patient states that he did not lose consciousness at any point and did not fall at while he was at her side, however, a syncopal event was reported in the records. Overnight review of telemetry reveals no acute events. The patient is feeling better than he did yesterday overall. He reports chronic pain in his ankles from gout but otherwise is feeling well. He is not working to breathe, denies chest pain, denies palpitations, is tolerating p.o., and is mentating at baseline. He reports not moving much at baseline from sitting or lying positions. He does go to the wound care center for care of his sacral decubitus ulcer. 1. Sepsis secondary to UTI versus sacral wound infection-resuscitated, continue broad-spectrum antibiotics pending culture results. 2. Hypoxia-continue supplemental oxygen. 3. Sacral wound-stage II, venous stasis ulcers on leg-wound care consult in place, covered with OPTi foam, turned patient every 2 hours, waffle boots, E HOB mattress. Wound care consulted appreciate recommendations. Wound culture pending. 3. Ischemic cardiomyopathy-patient is compensated and not in acute heart failure at this time. Continue medical management. Appreciate cardiology input. 4. Chronic gout due to renal impairment-no acute flare. Continue chronic prednisone and chronic allopurinol. 5. Atrial fibrillation-continue Coumadin 6. CKD stage III 7. Diabetes mellitus type 2-continue insulin sliding scale and glargine while hospitalized. Currently at goal. 8. Hypertension-at goal, continue to hold blood pressure medications at this time. 9. Elevated troponin-per cardiology no acute heart issues are ongoing. No further workup at this timeCAD, HLD: 10. CAD-stable, status post CABG without symptoms. Continue statin DVT prophylaxis-Coumadin DO NOT RESUSCITATE Disposition-likely back to [facility] on Monday at a minimum. Pending PT OT consultation. DO Munir Rodriguez hospitalist Consultants: [facility] Current Inpatient Medications: Current Inpatient Medications Medications (Trade) Dose Ordered Sig/Aileen Route Start Time Stop Time Status Last Admin Dose Admin Miscellaneous Information (Consult) 1 ea UD PRN N/A 05/19/17 13:30 06/18/17 13:29 Acetaminophen (Tylenol Tab) 650 mg Q4H PRN PO 05/19/17 15:15 06/18/17 15:14 Ondansetron HCl (Zofran Inj) 4 mg Q6H PRN IV 05/19/17 15:15 06/18/17 15:14 Insulin Aspart (novoLOG ASPART) SLIDING SCALE If C... ACHS SC 05/19/17 16:00 06/18/17 15:59 05/19/17 21:01 1 UNITS Glucose (Glucose 40% Gel) 15-30 GRAMS 15 GRAMS... UD PRN PO 05/19/17 15:15 06/18/17 15:14 Glucose (Glucose Chew Tab) 4-8 Tablets 4 Tabl... UD PRN PO 05/19/17 15:15 06/18/17 15:14 Dextrose (Dextrose 50% 50ML Syringe) 25-50ML OF 50% DW IV FOR... UD PRN IV 05/19/17 15:15 06/18/17 15:14 Glucagon (Glucagon Inj) 1 mg UD PRN SQ 05/19/17 15:15 06/18/17 15:14 Cefepime HCl (Consult) 1 ea UD PRN N/A 05/19/17 15:45 06/18/17 15:44 Morphine Sulfate (MoRPHine SULFATE INJ) 2 mg Q4 PRN IV 05/19/17 15:15 06/02/17 15:14 Acetaminophen/ Hydrocodone Bitart (Amelia 5/325 Tab) 1 tab Q4 PRN PO 05/19/17 15:15 06/02/17 15:14 05/20/17 04:38 1 TAB Albuterol (Ventolin Hfa Inhaler) 1 puffs Q6H PRN INH 05/19/17 16:30 06/18/17 16:29 Allopurinol (Zyloprim Tab) 450 mg QAM PO 05/20/17 09:00 06/19/17 08:59 05/20/17 08:27 450 MG Gabapentin (Neurontin Cap) 200 mg TID PO 05/19/17 21:00 06/18/17 20:59 05/20/17 08:26 200 MG Loperamide HCl (Imodium Cap) 2 mg Q6H PRN PO 05/19/17 16:15 06/18/17 16:14 05/19/17 21:00 2 MG Mirtazapine (Remeron Solutab) 15 mg HS PO 05/19/17 21:00 06/18/17 20:59 05/19/17 20:59 15 MG Nitroglycerin (Nitrostat Tab) 0.4 mg PRN PRN UT 05/19/17 16:00 06/18/17 15:59 Prednisone (PredniSONE TAB) 5 mg DAILY PO 05/20/17 09:00 06/19/17 08:59 05/20/17 08:26 5 MG Albuterol Sulfate (Ventolin 0.083% 2.5MG/3ML Neb) 2.5 mg Q4R INH 05/19/17 20:00 06/18/17 19:59 05/20/17 07:11 2.5 MG Cholestyramine Resin (Questran Powder Light) 4 gm QID PO 05/19/17 17:00 06/18/17 16:59 Pantoprazole Sodium (Protonix Tab) 40 mg BID PO 05/19/17 21:00 06/18/17 20:59 05/20/17 08:27 40 MG Cefepime HCl 2000 mg/Syringe 20 ml @ 5 mls/min Q24H IV 05/20/17 14:00 05/29/17 13:59 Vancomycin HCl 1500 mg/Sodium Chloride 530 ml @ 200 mls/hr Q18H IV 05/20/17 04:00 05/29/17 23:59 Future Hold 05/20/17 04:36 200 MLS/HR Insulin Glargine (Lantus Solostar Pen) For BSG <120, give 0 un... Q12 SC 05/19/17 21:00 06/18/17 20:59 05/19/17 21:01 15 UNITS
[2017-05-20] MEDS: CEFEPIME IV 2,000 MG in SYRINGE 7.5 ML IV SCH (15:30)
[2017-05-20] MEDS: WARFARIN SOD 5 MG TAB PO SCH (15:31)
[2017-05-20] MEDS: METOPROLOL TARTRATE 50 MG TAB PO SCH ×2 (18:34→18:45)
[2017-05-20] MEDS: MIRTAZAPINE SOLTAB 15 MG PO SCH (20:03)
[2017-05-21] VITALS (15 sets, daily range): BP systolic 82–160; BP diastolic 54–104; PULSE 68–106; TEMP 36.5–37.4; O2SAT 90–100
[2017-05-21] MEDS: ALBUTEROL 0.083% NEBU SOLN 3 ML VIAL INH SCH ×3 (03:51→11:07)
[2017-05-21] MEDS: VANCOMYCIN IV 1,500 MG in SODIUM CHLORIDE 0.9% 500ML 500 ML IV SCH (04:23)
[2017-05-21 06:25] LABS: HEMATOCRIT 32.1 % (42-52); HEMOGLOBIN 10.1 g/dL (14.0-18.0); MEAN CELL VOLUME 92.8 fL (80-100); MEAN CORPUSCULAR HEMOGLOBIN 29.2 pg (25-34); MEAN CORPUSCULAR HGB CONC 31.5 g/dl (32-36); MEAN PLATELET VOLUME 9.4 fL (7.4-10.4); PLATELET COUNT 117 K/uL (130-400); RED CELL DISTRIBUTION WIDTH CV 18.2 % (11.5-14.5); RED CELL DISTRIBUTION WIDTH SD 61.5 fL (36.4-46.3); WHITE BLOOD COUNT 8.35 K/uL (4.8-10.8)
[2017-05-21 06:44] LABS: INR 2.7 (0.9-1.1)
[2017-05-21 07:00] LABS: CALCIUM 8.6 mg/dl (8.5-10.1); CREATININE 1.99 mg/dl (0.60-1.40); POTASSIUM 3.7 mmol/L (3.5-5.1)
[2017-05-21] MEDS: METOPROLOL TARTRATE 50 MG TAB PO SCH ×2 (08:24→20:06)
[2017-05-21] MEDS: PANTOprazole SOD 40 MG TAB PO SCH ×2 (08:25→20:04)
[2017-05-21] MEDS: GABAPENTIN 100 MG CAP PO SCH ×3 (08:25→20:03)
[2017-05-21] MEDS: ALLOPURINOL 300 MG TAB PO SCH (08:26)
[2017-05-21] MEDS: CHOLESTYRAMINE LIGHT 4 GM PKT PO SCH ×4 (08:26→20:00)
[2017-05-21] MEDS: INSULIN ASPART 100 UNITS/ML 3 ML PEN SC SCH ×5 (08:30→20:55)
[2017-05-21] MEDS: INSULIN GLARGINE SOLOSTAR 100 UNITS/ML 3 ML PEN SC SCH ×2 (08:32→20:43)
[2017-05-21] MEDS: CEFEPIME IV 2,000 MG in SYRINGE 7.5 ML IV SCH (13:57)
[2017-05-21] MEDS ORDERED: VANCOMYCIN TROUGH ONE (15:30)
[2017-05-21] MEDS: WARFARIN SOD 5 MG TAB PO SCH (16:58)
--- NOTE | 2017-05-21 18:27 | Progress Note ---
Medicine Progress Note Date & Time of Visit: May 21, 2017 at 07:55. Subjective 81-year-old man transferred from [facility] for worsening pain in his sacrum. He was found to have sepsis secondary to UTI and superimposed sacral wound infection. He has chronic medical problems including chronic diastolic heart failure secondary to coronary artery disease, chronic A. fib on Coumadin, diabetes, chronic gout with chronic leg weakness. The patient states that he did not lose consciousness at any point and did not fall at while he was at [facility], however, a syncopal event was reported in the records. Overnight review of telemetry reveals no acute events. He reports feeling well overall. He reports an improvement in pain in his sacrum. Objective Last 8 Hrs Date Time Temp Pulse Resp B/P (MAP) Pulse Ox O2 Delivery O2 Flow Rate FiO2 05/21/17 07:11 83 14 96 BiPAP/CPAP 2.0 05/21/17 06:53 36.5 88 18 123/104 (110) 90 BiPAP 05/21/17 04:45 104 22 127/81 (96) 96 CPAP 05/21/17 04:00 CPAP 2.0 05/21/17 03:58 36.9 103 19 82/62 (69) 92 CPAP 05/21/17 03:51 93 16 97 BiPAP/CPAP 2.0 05/21/17 00:04 36.9 103 18 128/74 (92) 95 CPAP 05/21/17 00:01 CPAP 2.0 Physical Exam: GEN: obese, in no acute distress, alert and appropriate, generalized weakness HEENT: NC/AT, normal sclerae, MM are dry CARDIO: reg rate, S1/2 heard without m/g/r LUNGS: CTA bilaterally, no crackles, rales or wheezes, good diaphragmatic excursion ABD: soft, non-tender, non-distended, no rebound or guarding, +BS EXTREMITY: RP and DP palpable 2+ bilat, no LE swelling or edema, extremities are warm and well-perfused, RLE wounds NEURO: CN 2-12 grossly intact MUSC: generalized weakness. SKIN: warm and dry, venous leg ulcers on lower L leg, darkened purple discoloration to lower extremities anteriorly, stag II decubiti on buttocks near intergluteal fold which was not evaluated today. Laboratory Results: 05/21/17 05:50 05/21/17 05:50 Test 05/19/17 11:30 05/19/17 11:55 05/19/17 11:58 05/19/17 12:22 Immature Granulocyte % (Auto) 0.1 % White Blood Count 8.02 K/uL (4.8-10.8) Red Blood Count 3.56 M/uL (4.7-6.1) Hemoglobin 10.4 g/dL (14.0-18.0) Hematocrit 33.0 % (42-52) Mean Corpuscular Volume 92.7 fL (80-100) Mean Corpuscular Hemoglobin 29.2 pg (25-34) Mean Corpuscular Hemoglobin Concent 31.5 g/dl (32-36) Platelet Count 142 K/uL (130-400) Mean Platelet Volume 10.0 fL (7.4-10.4) Neutrophils (%) (Auto) 77.6 % Lymphocytes (%) (Auto) 10.1 % Monocytes (%) (Auto) 8.4 % Eosinophils (%) (Auto) 3.6 % Basophils (%) (Auto) 0.2 % Neutrophils # (Auto) 6.22 K/uL (1.4-6.5) Lymphocytes # (Auto) 0.81 K/uL (1.2-3.4) Monocytes # (Auto) 0.67 K/uL (0.11-0.59) Eosinophils # (Auto) 0.29 K/uL (0-0.5) Basophils # (Auto) 0.02 K/uL (0-0.2) Immature Granulocyte # (Auto) 0.01 K/uL (0.00-0.02) Activated Partial Thromboplast Time 46.4 SECONDS (21.0-31.0) Partial Thromboplastin Ratio 1.8 Phosphorus Level 3.5 mg/dl (2.5-4.9) Magnesium Level 1.9 mg/dl (1.8-2.4) Total Bilirubin 0.5 mg/dl (0.2-1) Direct Bilirubin 0.2 mg/dl (0-0.2) Aspartate Amino Transf (AST/SGOT) 41 U/L (15-37) Alanine Aminotransferase (ALT/SGPT) 29 U/L (12-78) Alkaline Phosphatase 136 U/L (45-117) Total Creatine Kinase 285 U/L (39-308) Creatine Kinase MB 4.0 ng/ml (0.5-3.6) Creatine Kinase MB Ratio 1.4 (0-3.0) Pro-B-Type Natriuretic Peptide 9418 pg/ml (0-1800) Total Protein 6.4 gm/dl (6.4-8.2) Albumin 2.5 gm/dl (3.4-5.0) Lipase 115 U/L (73-393) Thyroid Stimulating Hormone (TSH) 1.710 uIu/ml (0.300-4.500) Bedside Hemoglobin 10.2 g/dl (14.0-18.0) Bedside Hematocrit 30 % (42-52) Bedside Sodium 138 mEq/L (135-144) Bedside Potassium 3.5 mEq/L (3.3-5.0) Bedside Chloride 102 mEq/L (101-112) Bedside Total CO2 23 mEq/l (24-31) Bedside Blood Urea Nitrogen 55 mg/dl (7-18) Bedside Creatinine 2.1 mg/dl (0.6-1.3) Bedside Glucose (other) 167 mg/dl (70-99) Bedside Ionized Calcium (Sanjuanita) 1.18 mmol/l (1.12-1.32) Bedside Troponin I 0.810 ng/ml (0-0.045) Urine Color YELLOW Urine Appearance CLEAR (CLEAR) Urine pH 5.0 (4.5-7.5) Urine Specific [place] 1.015 (1.000-1.030) Urine Protein NEG (NEG) Urine Glucose (UA) NEG (NEG) Urine Ketones NEG (NEG) Urine Occult Blood 1+ (NEG) Urine Nitrite POS (NEG) Urine Bilirubin NEG (NEG) Urine Urobilinogen NEG (NEG) Urine Leukocyte Esterase MODERATE (NEG) Urine WBC (Auto) >30 /hpf (0-5) Urine RBC (Auto) 0-4 /hpf (0-4) Urine Hyaline Casts (Auto) 1-5 /lpf (0-5) Urine Epithelial Cells (Auto) 0-5 /lpf (0-5) Urine Bacteria (Auto) 2+ (NEG) Test 05/20/17 04:47 05/21/17 05:50 05/21/17 16:02 Lactic Acid Level 1.9 mmol/L (0.4-2.0) Troponin I 5.210 ng/ml (0-0.045) Red Blood Count 3.46 M/uL (4.7-6.1) Mean Corpuscular Volume 92.8 fL (80-100) Mean Corpuscular Hemoglobin 29.2 pg (25-34) Mean Corpuscular Hemoglobin Concent 31.5 g/dl (32-36) RDW Standard Deviation 61.5 fL (36.4-46.3) RDW Coefficient of Variation 18.2 % (11.5-14.5) Mean Platelet Volume 9.4 fL (7.4-10.4) Prothrombin Time 27.8 SECONDS (9.0-12.0) Prothromb Time International Ratio 2.7 (0.9-1.1) Anion Gap 8.0 mmol/L (3-11) Est Creatinine Clear Calc Drug Dose 43.0 ml/min Estimated GFR () 35.4 Estimated GFR (Non- 30.6 BUN/Creatinine Ratio 30.8 (10-20) Calcium Level 8.6 mg/dl (8.5-10.1) Bedside Glucose 173 mg/dl (70-99) Date/Time Source Procedure Growth Status 05/19/17 14:06 Blood Blood Culture - Preliminary NO GROWTH TO DATE. Resulted 05/19/17 17:34 Nasal MRSA DNA Surveillance Screen - Final Specimen Negative for MRSA by DNA Probe Complete 05/19/17 17:30 Stool C.difficile Toxin B Gene (PCR) - Final No C. difficile toxin B gene detected Complete 05/19/17 12:22 Urine , Clean Catch Urine Culture - Final Escherichia Coli Complete 05/19/17 19:15 Skin Sacrum Gram Stain - Final Resulted 05/19/17 19:15 Wound Culture - Preliminary Staphylococcus Aureus Streptococcus Species Resulted Last 24 Hours Test 05/20/17 11:07 05/20/17 16:18 05/20/17 19:53 05/21/17 05:50 Bedside Glucose 99 mg/dl 172 mg/dl 206 mg/dl White Blood Count 8.35 K/uL Red Blood Count 3.46 M/uL Hemoglobin 10.1 g/dL Hematocrit 32.1 % Mean Corpuscular Volume 92.8 fL Mean Corpuscular Hemoglobin 29.2 pg Mean Corpuscular Hemoglobin Concent 31.5 g/dl RDW Standard Deviation 61.5 fL RDW Coefficient of Variation 18.2 % Platelet Count 117 K/uL Mean Platelet Volume 9.4 fL Prothrombin Time 27.8 SECONDS Prothromb Time International Ratio 2.7 Sodium Level 138 mmol/L Potassium Level 3.7 mmol/L Chloride Level 108 mmol/L Carbon Dioxide Level 22 mmol/L Anion Gap 8.0 mmol/L Blood Urea Nitrogen 61 mg/dl Creatinine 1.99 mg/dl Est Creatinine Clear Calc Drug Dose 43.0 ml/min Estimated GFR () 35.4 Estimated GFR (Non- 30.6 BUN/Creatinine Ratio 30.8 Random Glucose 142 mg/dl Calcium Level 8.6 mg/dl Test 05/21/17 06:56 Bedside Glucose 158 mg/dl Assessment & Plan 81-year-old man transferred from [facility] for worsening pain in his sacrum. He was found to have sepsis secondary to UTI and superimposed sacral wound infection. He has chronic medical problems including chronic diastolic heart failure secondary to coronary artery disease, chronic A. fib on Coumadin, diabetes, chronic gout with chronic leg weakness. The patient states that he did not lose consciousness at any point and did not fall at while he was at [facility], however, a syncopal event was reported in the records. Overnight review of telemetry reveals no acute events. He reports feeling well overall. He reports an improvement in pain in his sacrum. 1. Sepsis secondary to UTI versus sacral wound infection-resuscitated, continue broad-spectrum antibiotics pending culture results. 2. Hypoxia 2/2 chronic respiratory failure. Cont supplemental oxygen per home regimen. Pt is currently at baseline. 3. Sacral wound-stage II, venous stasis ulcers on leg-wound care consult in place, covered with OPTi foam, turned patient every 2 hours, waffle boots, E HOB mattress. Wound care consulted appreciate recommendations. Wound culture growing staph aureus and strep species. On broad spectrum abx pending sensitivities. 3. Ischemic cardiomyopathy-patient is compensated and not in acute heart failure at this time. Continue medical management. Appreciate cardiology input. Will restart chronic Lasix per home regimen. 4. Chronic gout due to renal impairment-no acute flare. Continue chronic prednisone and chronic allopurinol. 5. Atrial fibrillation-continue Coumadin and metoprolol added back for rate control with good response. 6. CKD stage III- around baseline. 7. Diabetes mellitus type 2-continue insulin sliding scale and glargine while hospitalized. Currently at goal. 8. Hypertension-at goal, continue to hold blood pressure medications at this time. 9. Elevated troponin-per cardiology no acute heart issues are ongoing. No further workup at this time CAD 10. CAD-stable, status post CABG without symptoms. Continue statin DVT prophylaxis-Coumadin DO NOT RESUSCITATE Disposition-transfer to med/surg. Compensated clinically, but awaiting sensitivities of cultures to return and want to see blood pressure stabilize more. DO Irvin [facility] Consultants: [facility] Current Inpatient Medications: Current Inpatient Medications Medications (Trade) Dose Ordered Sig/Aileen Route Start Time Stop Time Status Last Admin Dose Admin Miscellaneous Information (Consult) 1 ea UD PRN N/A 05/19/17 13:30 06/18/17 13:29 Acetaminophen (Tylenol Tab) 650 mg Q4H PRN PO 05/19/17 15:15 06/18/17 15:14 Ondansetron HCl (Zofran Inj) 4 mg Q6H PRN IV 05/19/17 15:15 06/18/17 15:14 Insulin Aspart (novoLOG ASPART) SLIDING SCALE If C... ACHS SC 05/19/17 16:00 06/18/17 15:59 05/20/17 20:01 4 UNITS Glucose (Glucose 40% Gel) 15-30 GRAMS 15 GRAMS... UD PRN PO 05/19/17 15:15 06/18/17 15:14 Glucose (Glucose Chew Tab) 4-8 Tablets 4 Tabl... UD PRN PO 05/19/17 15:15 06/18/17 15:14 Dextrose (Dextrose 50% 50ML Syringe) 25-50ML OF 50% DW IV FOR... UD PRN IV 05/19/17 15:15 06/18/17 15:14 Glucagon (Glucagon Inj) 1 mg UD PRN SQ 05/19/17 15:15 06/18/17 15:14 Cefepime HCl (Consult) 1 ea UD PRN N/A 05/19/17 15:45 06/18/17 15:44 Morphine Sulfate (MoRPHine SULFATE INJ) 2 mg Q4 PRN IV 05/19/17 15:15 06/02/17 15:14 Acetaminophen/ Hydrocodone Bitart ([place] 5/325 Tab) 1 tab Q4 PRN PO 05/19/17 15:15 06/02/17 15:14 05/20/17 21:51 1 TAB Albuterol (Ventolin Hfa Inhaler) 1 puffs Q6H PRN INH 05/19/17 16:30 06/18/17 16:29 Allopurinol (Zyloprim Tab) 450 mg QAM PO 05/20/17 09:00 06/19/17 08:59 05/20/17 08:27 450 MG Gabapentin (Neurontin Cap) 200 mg TID PO 05/19/17 21:00 06/18/17 20:59 05/20/17 20:03 200 MG Loperamide HCl (Imodium Cap) 2 mg Q6H PRN PO 05/19/17 16:15 06/18/17 16:14 05/19/17 21:00 2 MG Mirtazapine (Remeron Solutab) 15 mg HS PO 05/19/17 21:00 06/18/17 20:59 05/20/17 20:03 15 MG Nitroglycerin (Nitrostat Tab) 0.4 mg PRN PRN UT 05/19/17 16:00 06/18/17 15:59 Prednisone (PredniSONE TAB) 5 mg DAILY PO 05/20/17 09:00 06/19/17 08:59 05/20/17 08:26 5 MG Albuterol Sulfate (Ventolin 0.083% 2.5MG/3ML Neb) 2.5 mg Q4R INH 05/19/17 20:00 06/18/17 19:59 05/21/17 07:11 2.5 MG Cholestyramine Resin (Questran Powder Light) 4 gm QID PO 05/19/17 17:00 06/18/17 16:59 05/20/17 20:03 4 GM Pantoprazole Sodium (Protonix Tab) 40 mg BID PO 05/19/17 21:00 06/18/17 20:59 05/20/17 21:48 40 MG Cefepime HCl 2000 mg/Syringe 20 ml @ 5 mls/min Q24H IV 05/20/17 14:00 05/29/17 13:59 05/20/17 15:30 5 MLS/MIN Insulin Glargine (Lantus Solostar Pen) For BSG <120, give 0 un... Q12 SC 05/19/17 21:00 06/18/17 20:59 05/20/17 20:02 20 UNITS Vancomycin HCl 1500 mg/Sodium Chloride 530 ml @ 200 mls/hr Q24H IV 05/21/17 04:00 05/29/17 03:59 05/21/17 04:23 200 MLS/HR Warfarin Sodium (Coumadin Tab) 5 mg DAILY@1600 PO 05/20/17 16:00 06/19/17 15:59 05/20/17 15:31 5 MG Metoprolol Tartrate (Lopressor Tab) 50 mg BID PO 05/20/17 18:15 06/19/17 18:14 05/20/17 18:34 50 MG
[2017-05-21] MEDS: FUROSEMIDE 80 MG TAB PO SCH (20:02)
[2017-05-21] MEDS: POTASSIUM CHLORIDE 20 MEQ TABCR PO SCH (20:02)
[2017-05-21] MEDS: MIRTAZAPINE SOLTAB 15 MG PO SCH (20:04)
[2017-05-21] MEDS: HYDROCODONE/ACETAMIN 5/325MG TAB PO PRN (21:07)
[2017-05-22] MEDS ORDERED: VANCOMYCIN TROUGH ONE (03:30)
[2017-05-22 04:04] LABS: INR 2.2 (0.9-1.1)
[2017-05-22 04:07] LABS: CALCIUM 8.6 mg/dl (8.5-10.1); CREATININE 2.13 mg/dl (0.60-1.40); POTASSIUM 3.7 mmol/L (3.5-5.1)
[2017-05-22] MEDS: VANCOMYCIN IV 1,500 MG in SODIUM CHLORIDE 0.9% 500ML 500 ML IV SCH (04:11)
[2017-05-22 07:26] VITALS: BP 143/70; PULSE 73; TEMP 36.5; O2SAT 97
[2017-05-22] MEDS: CHOLESTYRAMINE LIGHT 4 GM PKT PO SCH ×4 (08:00→22:58)
[2017-05-22] MEDS: GABAPENTIN 100 MG CAP PO SCH ×3 (08:18→20:51)
[2017-05-22] MEDS: PANTOprazole SOD 40 MG TAB PO SCH ×2 (08:18→21:42)
[2017-05-22] MEDS: POTASSIUM CHLORIDE 20 MEQ TABCR PO SCH ×2 (08:18→20:52)
[2017-05-22] MEDS: METOPROLOL TARTRATE 50 MG TAB PO SCH ×2 (08:18→21:44)
[2017-05-22] MEDS: ALLOPURINOL 300 MG TAB PO SCH (08:19)
[2017-05-22] MEDS: FUROSEMIDE 80 MG TAB PO SCH ×2 (08:19→21:41)
[2017-05-22] MEDS: INSULIN ASPART 100 UNITS/ML 3 ML PEN SC SCH ×4 (08:27→21:00)
[2017-05-22] MEDS: INSULIN GLARGINE SOLOSTAR 100 UNITS/ML 3 ML PEN SC SCH ×2 (08:28→21:00)
[2017-05-22 08:30] VITALS: O2SAT 97
--- NOTE | 2017-05-22 08:47 | Pharmacy Progress Note ---
Pharmacy Abx Dose Progress Nt Date of Service May 22, 2017. Pharmacy Dosing Scope The patient is currently receiving the following antimicrobial agents per Pharmacy consult: Vancomycin 1500 mg IV every 24 hours Objective Height (Feet): 6 Height (Inches): 3.00 Weight (Kilograms): 134.400 Vital Signs (Past 12Hrs) Vital Signs Past 12 Hours Date Time Temp Pulse Resp B/P (MAP) Pulse Ox O2 Delivery O2 Flow Rate FiO2 05/22/17 07:26 36.5 73 20 143/70 (94) 97 BiPAP 05/22/17 00:00 Nasal Cannula 3.0 05/21/17 23:39 36.6 91 21 106/74 (85) 98 CPAP 05/21/17 22:14 94 2.0 Micro Results Date/Time Source Procedure Growth Status 05/19/17 14:06 Blood Blood Culture - Preliminary NO GROWTH TO DATE. Resulted 05/19/17 13:58 Blood Blood Culture - Preliminary NO GROWTH TO DATE. Resulted 05/19/17 17:34 Nasal MRSA DNA Surveillance Screen - Final Specimen Negative for MRSA by DNA Probe Complete 05/19/17 17:30 Stool C.difficile Toxin B Gene (PCR) - Final No C. difficile toxin B gene detected Complete 05/19/17 17:30 Stool Shiga Toxin Test - Final No E. Coli shiga toxin 1 or shiga tox... Complete 05/19/17 17:30 Stool Stool Culture - Final NO SALMONELLA ISOLATED,... Complete 05/19/17 12:22 Urine , Clean Catch Urine Culture - Final Escherichia Coli Complete 05/19/17 19:15 Skin Sacrum Gram Stain - Final Resulted 05/19/17 19:15 Wound Culture - Preliminary Staph. Aureus Mrsa Streptococcus Species Resulted Risk Factors for Resistance * Resident in a correction or extended-care facility * History of infection with a multidrug-resistant organism: MRSA leg ulcer Mar 2017 * Antimicrobial use within the last 90 days: Levaquin Assessment & Plan Assessment 81 year old male receiving Vancomycin and Cefepime for treatment of sepsis secondary to E. coli UTI and MRSA/streptococcus sacral wound infection * Patient is on day # 4 of antimicrobial therapy Plan Vancomycin IV * Trough level of 19.4 mcg/mL is therapeutic * Continue dose of 1500 mg IV every 24 hours * Goal trough level for wound infection : 15 to 20 mcg/mL * Will repeat trough level on 05/24, prior to 0400 dose, to assess for possible drug accumulation d/t obesity and CKD. Renal function is currently stable. Vancomycin dose is already reduced significantly (11 mg/kg) compared to traditional dosing. Will place 05/24 dose on hold until level is evaluated by RPh incase accumulation occurs. Cefepime * Continue 2000 mg IV q24h for CrCl 30-60 ml/min Pharmacy will continue to follow and will adjust dose/frequency as necessary. Thank you.
[2017-05-22] MEDS: HYDROCODONE/ACETAMIN 5/325MG TAB PO PRN (11:12)
--- NOTE | 2017-05-22 11:25 | Progress Note ---
Progress Note Date of Service May 22, 2017. Progress Note ID Consult Dictated #[id number] A/P: 1. Sacral wound 2. Uti -Continue cefepime vanco for now, await final cultures -Continue wound care -Will follow, thank you
--- NOTE | 2017-05-22 11:51 | INFECT. DISEASE CONSULTATION ---
DATE OF CONSULTATION: 05/22/2017 HISTORY OF PRESENT ILLNESS: This is an 81-year-old gentleman who was admitted to the hospital on the 6th after he suffered a syncopal episode at his longterm facility. He does have a history of chronic AFib on Coumadin and congestive heart failure with cardiomyopathy. He also is being treated at his skilled facility for a sacral wound. He states he previously was being followed at the wound center, but has not been there for some time. He was not on antibiotics at the time of admission. He did admit to some pain upon arrival to the Emergency Room in the sacral area but currently denies any pain. He did have a wound culture done in the OR, which was superficial, which is growing MRSA, sensitive to Bactrim, vancomycin and daptomycin and a strep species, which is yet to be identified. Blood cultures were obtained in the ER and are negative to date. A urine culture was also obtained and is growing E. coli which is sensitive to Keflex, Rocephin, ertapenem and Macrobid. He currently is on vancomycin, cefepime and prednisone and he appears to be tolerating these medications well. His most recent vancomycin level is 19. He has not had leukocytosis. His creatinine is elevated at 2.1. His urinalysis in the ER had greater than 30 WBCs and +2 bacteria. A C. diff was also done during this admission and is negative. His only complaint on my exam today is of pain in the sacral area. He is being followed by wound care nursing during this hospital stay. He is tolerating his antibiotics well. His remaining review of systems is unremarkable. Infectious disease was consulted for antibiotic selection. PAST MEDICAL HISTORY: Significant for Afib on anticoagulation, coronary artery disease with history of CABG in the mid 90s, gout, chronic kidney disease, type 2 diabetes, high cholesterol, GERD, hypertension, ischemic cardiomyopathy, obstructive sleep apnea with CPAP, history of renal calculi. PAST SURGICAL HISTORY: Significant for arthroscopic knee surgery, right shoulder replacement and left knee replacement. FAMILY HISTORY: Noncontributory. SOCIAL HISTORY: Negative for tobacco use, alcohol use or drug use. He currently lives at a longterm facility. ALLERGIES: He has no known drug allergies. CURRENT MEDICATIONS: Lasix, potassium, vancomycin, Lopressor, Coumadin, cefepime, allopurinol, prednisone, Neurontin, Remeron, Protonix, Lantus, cholestyramine, albuterol, Imodium, insulin, Tylenol, Zofran, morphine, Percocet. PHYSICAL EXAMINATION: VITAL SIGNS: He is afebrile and has been since admission to the hospital, pulse 73, respiratory rate 20, blood pressure 143/70, oxygen saturation is 94% on 2 liters nasal cannula. GENERAL: He is awake, alert and oriented. He is in no acute distress. HEENT: Mucous membranes are moist. HEART: I do not auscultate a murmur. LUNGS: Clear bilaterally with decreased breath sounds at the bases. ABDOMEN: Mildly distended but soft and nontender. EXTREMITIES: There is no lower extremity edema. SKIN: Without rash. LABORATORY STUDIES: CBC on the 8th, white blood cell count 8.3, hemoglobin 10.1, platelets 117. Chemistry panel this morning, sodium 138, potassium 3.7, chloride 108, bicarbonate 23, BUN 66, creatinine 2.1, glucose of 94. Troponin was as high as 5.2 on the 7th. Lactic acid was initially elevated at 3.5 but has improved. His LFTs were within normal limits on admission. Again, urinalysis had greater than 30 WBCs, moderate leukocyte esterase and +2 bacteria. A vancomycin trough this morning is 19.4. Urine culture from the 6th is growing E. coli. Blood cultures from the 6th show no growth to date x2 sets. Stool sample from the 6th is negative for C. diff and wound culture from the 6th is growing MRSA and strep specie, identification is pending. IMAGING: A chest x-ray in the ER showed mild pulmonary edema. ASSESSMENT AND PLAN: Likely infected sacral wound. He will remain on vancomycin at this time pending final sensitivities. I would not recommend Bactrim in this patient with chronic kidney disease. He likely will be continued on IV antibiotics or could be transitioned to Zyvox if that would be feasible with his longterm facility. He also has positive urine culture with E. coli. This is sensitive to cefepime and he can continue on that. For now if there is a plan to narrow to oral antibiotics certainly, Keflex could be used with renal dosing. Again, I would avoid Macrobid in this patient with underlying chronic kidney disease. We will follow along with you. Thank you for this consultation.
--- NOTE | 2017-05-22 13:26 | Clinical Documentation Query ---
CLINICAL DOCUMENTATION QUERY Dr. WALTER, In your clinical opinion is this patient being managed for: (x ) NSTEMI/Type II NE due to demand ischemia ( ) Not Agree ( ) Other explanation of clinical findings (Please Explain) ( ) Unable to determine (Please Define) ( ) Need to Discuss The medical record reflects the following clinical findings, treatment, and risk factors. Clinical Indicators: 81 yo male presenting with syncopal episode. Diagnosed with sepsis. Trops 0.810/2.94/5.21. HR 121 Treatment: tele monitoring, cardiology consult, O2 support, serial trops, continue chronic meds: lopressor, coumadin, Risk Factors:sepsis, A fib, DM, CAD, YAMEL, CKD stage III, systolic CHF Please clarify and document your clinical opinion in the progress notes and discharge summary. Terms such as "probable", "suspected", "likely", "questionable", "possible", or "still to be ruled out" are acceptable. IF IN AGREEMENT, YOU MUST DOCUMENT ABOVE DIAGNOSTIC STATEMENT IN DAILY PROGRESS NOTES AND DISCHARGE SUMMARY. This document is not part of the patient's record. Thank You, Priyanka Choi, SIMONA [phone]
[2017-05-22] MEDS: CEFEPIME IV 2,000 MG in SYRINGE 7.5 ML IV SCH (14:28)
[2017-05-22 16:00] VITALS: BP 134/74; PULSE 110; O2SAT 93
[2017-05-22] MEDS ORDERED: LINEZOLID CONSULT ACTIVE PRN (16:23)
[2017-05-22] MEDS: WARFARIN SOD 5 MG TAB PO SCH (16:48)
[2017-05-22] MEDS: LINEZOLID 600MG / D5W IV SCH (17:35)
[2017-05-22 22:00] VITALS: PULSE 95; O2SAT 97
--- NOTE | 2017-05-22 22:48 | Progress Note ---
Medicine Progress Note Date & Time of Visit: May 22, 2017 at 16:48. Subjective 81-year-old man transferred from [facility] for worsening pain in his sacrum. He was found to have sepsis secondary to UTI and superimposed sacral wound infection. He has chronic medical problems including chronic diastolic heart failure secondary to coronary artery disease, chronic A. fib on Coumadin, diabetes, chronic gout with chronic leg weakness. Per nursing staff he did well all day however, just recently became delirious. On arrival to bedside the patient is not making sense and complaining of pain but then denying it. Review of systems was unable to obtain secondary to delirium Objective Last 8 Hrs Date Time Temp Pulse Resp B/P (MAP) Pulse Ox O2 Delivery O2 Flow Rate FiO2 05/22/17 15:44 Nasal Cannula 3.0 Physical Exam: GEN: obese, delirious, alert ,generalized weakness, and mild distress according pain with minimal movement HEENT: NC/AT, normal sclerae CARDIO: reg rate, S1/2 heard without m/g/r LUNGS: CTA bilaterally, no crackles, rales or wheezes, good diaphragmatic excursion ABD: soft, non-tender, non-distended, no rebound or guarding, +BS EXTREMITY: RP and DP palpable 2+ bilat, no LE swelling or edema, extremities are warm and well-perfused, RLE wounds NEURO: CN 2-12 grossly intact MUSC: generalized weakness. SKIN: warm and dry, venous leg ulcers on lower L leg, darkened purple discoloration to lower extremities anteriorly, stag II decubiti on buttocks near intergluteal fold which was not evaluated today. Laboratory Results: 05/21/17 05:50 05/22/17 03:30 Test 05/19/17 11:30 05/19/17 11:55 05/19/17 11:58 05/19/17 12:22 Immature Granulocyte % (Auto) 0.1 % White Blood Count 8.02 K/uL (4.8-10.8) Red Blood Count 3.56 M/uL (4.7-6.1) Hemoglobin 10.4 g/dL (14.0-18.0) Hematocrit 33.0 % (42-52) Mean Corpuscular Volume 92.7 fL (80-100) Mean Corpuscular Hemoglobin 29.2 pg (25-34) Mean Corpuscular Hemoglobin Concent 31.5 g/dl (32-36) Platelet Count 142 K/uL (130-400) Mean Platelet Volume 10.0 fL (7.4-10.4) Neutrophils (%) (Auto) 77.6 % Lymphocytes (%) (Auto) 10.1 % Monocytes (%) (Auto) 8.4 % Eosinophils (%) (Auto) 3.6 % Basophils (%) (Auto) 0.2 % Neutrophils # (Auto) 6.22 K/uL (1.4-6.5) Lymphocytes # (Auto) 0.81 K/uL (1.2-3.4) Monocytes # (Auto) 0.67 K/uL (0.11-0.59) Eosinophils # (Auto) 0.29 K/uL (0-0.5) Basophils # (Auto) 0.02 K/uL (0-0.2) Immature Granulocyte # (Auto) 0.01 K/uL (0.00-0.02) Activated Partial Thromboplast Time 46.4 SECONDS (21.0-31.0) Partial Thromboplastin Ratio 1.8 Phosphorus Level 3.5 mg/dl (2.5-4.9) Total Bilirubin 0.5 mg/dl (0.2-1) Direct Bilirubin 0.2 mg/dl (0-0.2) Aspartate Amino Transf (AST/SGOT) 41 U/L (15-37) Alanine Aminotransferase (ALT/SGPT) 29 U/L (12-78) Alkaline Phosphatase 136 U/L (45-117) Total Creatine Kinase 285 U/L (39-308) Creatine Kinase MB 4.0 ng/ml (0.5-3.6) Creatine Kinase MB Ratio 1.4 (0-3.0) Pro-B-Type Natriuretic Peptide 9418 pg/ml (0-1800) Total Protein 6.4 gm/dl (6.4-8.2) Albumin 2.5 gm/dl (3.4-5.0) Lipase 115 U/L (73-393) Thyroid Stimulating Hormone (TSH) 1.710 uIu/ml (0.300-4.500) Bedside Hemoglobin 10.2 g/dl (14.0-18.0) Bedside Hematocrit 30 % (42-52) Bedside Sodium 138 mEq/L (135-144) Bedside Potassium 3.5 mEq/L (3.3-5.0) Bedside Chloride 102 mEq/L (101-112) Bedside Total CO2 23 mEq/l (24-31) Bedside Blood Urea Nitrogen 55 mg/dl (7-18) Bedside Creatinine 2.1 mg/dl (0.6-1.3) Bedside Glucose (other) 167 mg/dl (70-99) Bedside Ionized Calcium ([place]ju[place]) 1.18 mmol/l (1.12-1.32) Bedside Troponin I 0.810 ng/ml (0-0.045) Urine Color YELLOW Urine Appearance CLEAR (CLEAR) Urine pH 5.0 (4.5-7.5) Urine Specific [place] 1.015 (1.000-1.030) Urine Protein NEG (NEG) Urine Glucose (UA) NEG (NEG) Urine Ketones NEG (NEG) Urine Occult Blood 1+ (NEG) Urine Nitrite POS (NEG) Urine Bilirubin NEG (NEG) Urine Urobilinogen NEG (NEG) Urine Leukocyte Esterase MODERATE (NEG) Urine WBC (Auto) >30 /hpf (0-5) Urine RBC (Auto) 0-4 /hpf (0-4) Urine Hyaline Casts (Auto) 1-5 /lpf (0-5) Urine Epithelial Cells (Auto) 0-5 /lpf (0-5) Urine Bacteria (Auto) 2+ (NEG) Test 05/20/17 04:47 05/21/17 05:50 05/22/17 03:30 05/22/17 20:51 Lactic Acid Level 1.9 mmol/L (0.4-2.0) Troponin I 5.210 ng/ml (0-0.045) Red Blood Count 3.46 M/uL (4.7-6.1) Mean Corpuscular Volume 92.8 fL (80-100) Mean Corpuscular Hemoglobin 29.2 pg (25-34) Mean Corpuscular Hemoglobin Concent 31.5 g/dl (32-36) RDW Standard Deviation 61.5 fL (36.4-46.3) RDW Coefficient of Variation 18.2 % (11.5-14.5) Mean Platelet Volume 9.4 fL (7.4-10.4) Prothrombin Time 22.6 SECONDS (9.0-12.0) Prothromb Time International Ratio 2.2 (0.9-1.1) Anion Gap 7.0 mmol/L (3-11) Est Creatinine Clear Calc Drug Dose 40.2 ml/min Estimated GFR () 32.6 Estimated GFR (Non- 28.2 BUN/Creatinine Ratio 30.8 (10-20) Calcium Level 8.6 mg/dl (8.5-10.1) Magnesium Level 2.1 mg/dl (1.8-2.4) Vancomycin Level Trough 19.4 mcg/ml (SEE COMMENT) Bedside Glucose 110 mg/dl (70-99) Date/Time Source Procedure Growth Status 05/19/17 14:06 Blood Blood Culture - Preliminary NO GROWTH TO DATE. Resulted 05/19/17 17:34 Nasal MRSA DNA Surveillance Screen - Final Specimen Negative for MRSA by DNA Probe Complete 05/19/17 17:30 Stool C.difficile Toxin B Gene (PCR) - Final No C. difficile toxin B gene detected Complete 05/19/17 12:22 Urine , Clean Catch Urine Culture - Final Escherichia Coli Complete 05/19/17 19:15 Skin Sacrum Gram Stain - Final Resulted 05/19/17 19:15 Wound Culture - Preliminary Staph. Aureus Mrsa Enterococcus Faecalis Vre Resulted Last 24 Hours Test 05/21/17 20:15 05/22/17 03:30 05/22/17 07:39 05/22/17 11:42 Bedside Glucose 142 mg/dl 94 mg/dl 105 mg/dl Prothrombin Time 22.6 SECONDS Prothromb Time International Ratio 2.2 Sodium Level 138 mmol/L Potassium Level 3.7 mmol/L Chloride Level 108 mmol/L Carbon Dioxide Level 23 mmol/L Anion Gap 7.0 mmol/L Blood Urea Nitrogen 66 mg/dl Creatinine 2.13 mg/dl Est Creatinine Clear Calc Drug Dose 40.2 ml/min Estimated GFR () 32.6 Estimated GFR (Non- 28.2 BUN/Creatinine Ratio 30.8 Random Glucose 94 mg/dl Calcium Level 8.6 mg/dl Magnesium Level 2.1 mg/dl Vancomycin Level Trough 19.4 mcg/ml Assessment & Plan 81-year-old man transferred from [facility] for worsening pain in his sacrum. He was found to have sepsis secondary to UTI and superimposed sacral wound infection. He has chronic medical problems including chronic diastolic heart failure secondary to coronary artery disease, chronic A. fib on Coumadin, diabetes, chronic gout with chronic leg weakness. Per nursing staff he did well all day however, just recently became delirious. On arrival to bedside the patient is not making sense and complaining of pain but then denying it. Review of systems was unable to obtain secondary to delirium 1. Sepsis secondary to UTI versus sacral wound infection-resuscitated, ID was consulted. Sacral wound is now growing out VRE and vancomycin was switched to Zyvox. As a result of the interaction with Zyvox and Remeron, his Remeron was also held. Continue to follow ID recommendations 2. Acute delirium-likely secondary to infection versus ing. Patient otherwise doing well today per nursing staff. will monitor closely overnight for clinical improvement. Continue to treat any pain that is present. 3. Hypoxia 2/2 chronic respiratory failure. Cont supplemental oxygen per home regimen. Pt is currently at baseline. 4. Sacral wound-stage II, venous stasis ulcers on leg-wound care consult in place, covered with OPTi foam, turned patient every 2 hours, waffle boots, E HOB mattress. Wound care consulted appreciate recommendations. Wound culture growing MRSA and VRE. Continue antibiotics per ID recs. 5. Ischemic cardiomyopathy-patient is compensated and not in acute heart failure at this time. Continue medical management. Appreciate cardiology input. Will restart chronic Lasix per home regimen. 6. N STEMI-type II secondary to demand ischemia secondary to sepsis. Cardiology consulted. No further workup is necessary. 7. Chronic gout due to renal impairment-no acute flare. Continue chronic prednisone and chronic allopurinol. 8. Atrial fibrillation-continue Coumadin and metoprolol added back for rate control with good response. 9. CKD stage III- around baseline. 10. Diabetes mellitus type 2-continue insulin sliding scale and glargine while hospitalized. Currently at goal. 11. Hypertension-at goal, continue to hold blood pressure medications at this time. 11. CAD-stable, status post CABG without symptoms. Continue statin DVT prophylaxis-Coumadin DO NOT RESUSCITATE Disposition-continue hospitalization until delirium has cleared and antibiotics have been adjusted appropriately. DO Munir Rodriguez hospitalist Consultants: [facility] Current Inpatient Medications: Current Inpatient Medications Medications (Trade) Dose Ordered Sig/Aileen Route Start Time Stop Time Status Last Admin Dose Admin Acetaminophen (Tylenol Tab) 650 mg Q4H PRN PO 05/19/17 15:15 06/18/17 15:14 Ondansetron HCl (Zofran Inj) 4 mg Q6H PRN IV 05/19/17 15:15 06/18/17 15:14 Insulin Aspart (novoLOG ASPART) SLIDING SCALE If C... ACHS SC 05/19/17 16:00 06/18/17 15:59 05/22/17 08:27 4 UNITS Glucose (Glucose 40% Gel) 15-30 GRAMS 15 GRAMS... UD PRN PO 05/19/17 15:15 06/18/17 15:14 Glucose (Glucose Chew Tab) 4-8 Tablets 4 Tabl... UD PRN PO 05/19/17 15:15 06/18/17 15:14 Dextrose (Dextrose 50% 50ML Syringe) 25-50ML OF 50% DW IV FOR... UD PRN IV 05/19/17 15:15 06/18/17 15:14 Glucagon (Glucagon Inj) 1 mg UD PRN SQ 05/19/17 15:15 06/18/17 15:14 Cefepime HCl (Consult) 1 ea UD PRN N/A 05/19/17 15:45 06/18/17 15:44 Morphine Sulfate (MoRPHine SULFATE INJ) 2 mg Q4 PRN IV 05/19/17 15:15 06/02/17 15:14 Acetaminophen/ Hydrocodone Bitart ([place] 5/325 Tab) 1 tab Q4 PRN PO 05/19/17 15:15 06/02/17 15:14 05/22/17 11:12 1 TAB Albuterol (Ventolin Hfa Inhaler) 1 puffs Q6H PRN INH 05/19/17 16:30 06/18/17 16:29 Allopurinol (Zyloprim Tab) 450 mg QAM PO 05/20/17 09:00 06/19/17 08:59 05/22/17 08:19 450 MG Gabapentin (Neurontin Cap) 200 mg TID PO 05/19/17 21:00 06/18/17 20:59 05/22/17 14:28 200 MG Loperamide HCl (Imodium Cap) 2 mg Q6H PRN PO 05/19/17 16:15 06/18/17 16:14 05/19/17 21:00 2 MG Mirtazapine (Remeron Solutab) 15 mg HS PO 05/19/17 21:00 06/18/17 20:59 Future Hold 05/21/17 20:04 15 MG Nitroglycerin (Nitrostat Tab) 0.4 mg PRN PRN UT 05/19/17 16:00 06/18/17 15:59 Prednisone (PredniSONE TAB) 5 mg DAILY PO 05/20/17 09:00 06/19/17 08:59 05/22/17 08:19 5 MG Cholestyramine Resin (Questran Powder Light) 4 gm QID PO 05/19/17 17:00 06/18/17 16:59 05/21/17 08:26 4 GM Pantoprazole Sodium (Protonix Tab) 40 mg BID PO 05/19/17 21:00 06/18/17 20:59 05/22/17 08:18 40 MG Cefepime HCl 2000 mg/Syringe 20 ml @ 5 mls/min Q24H IV 05/20/17 14:00 05/29/17 13:59 05/22/17 14:28 5 MLS/MIN Insulin Glargine (Lantus Solostar Pen) For BSG <120, give 0 un... Q12 SC 05/19/17 21:00 06/18/17 20:59 05/21/17 20:43 15 UNITS Warfarin Sodium (Coumadin Tab) 5 mg DAILY@1600 PO 05/20/17 16:00 06/19/17 15:59 05/21/17 16:58 5 MG Metoprolol Tartrate (Lopressor Tab) 50 mg BID PO 05/20/17 18:15 06/19/17 18:14 05/22/17 08:18 50 MG Furosemide (Lasix Tab) 80 mg BID PO 05/21/17 20:00 06/20/17 20:59 05/22/17 08:19 80 MG Potassium Chloride (Klor-Con Tab) 20 meq BID PO 05/21/17 20:00 06/20/17 20:59 05/22/17 08:18 20 MEQ Linezolid (Consult) 1 ea UD PRN N/A 05/22/17 16:23 06/21/17 16:22 Linezolid 600 mg/ Prmx 300 ml @ 200 mls/hr Q12H IV 05/22/17 17:00 06/01/17 16:59
[2017-05-22 23:43] VITALS: BP 122/81; PULSE 96; TEMP 36.8; O2SAT 95
[2017-05-23] MEDS: LINEZOLID 600MG / D5W IV SCH (05:52)
[2017-05-23 06:29] LABS: INR 2.2 (0.9-1.1)
[2017-05-23 06:56] LABS: CREATININE 1.83 mg/dl (0.60-1.40)
[2017-05-23 07:27] VITALS: BP 124/81; PULSE 78; TEMP 36.5; O2SAT 100
[2017-05-23 08:00] VITALS: O2SAT 100
[2017-05-23] MEDS: CHOLESTYRAMINE LIGHT 4 GM PKT PO SCH ×4 (08:00→20:00)
[2017-05-23] MEDS: GABAPENTIN 100 MG CAP PO SCH ×3 (08:20→20:50)
[2017-05-23] MEDS: ALLOPURINOL 300 MG TAB PO SCH (08:20)
[2017-05-23] MEDS: POTASSIUM CHLORIDE 20 MEQ TABCR PO SCH ×2 (08:20→20:49)
[2017-05-23] MEDS: PANTOprazole SOD 40 MG TAB PO SCH ×2 (08:20→20:48)
[2017-05-23] MEDS: METOPROLOL TARTRATE 50 MG TAB PO SCH ×2 (08:21→20:48)
[2017-05-23] MEDS: FUROSEMIDE 80 MG TAB PO SCH ×2 (08:21→20:47)
[2017-05-23] MEDS: INSULIN GLARGINE SOLOSTAR 100 UNITS/ML 3 ML PEN SC SCH ×2 (08:23→20:46)
[2017-05-23] MEDS: INSULIN ASPART 100 UNITS/ML 3 ML PEN SC SCH ×4 (08:24→20:45)
--- NOTE | 2017-05-23 13:35 | Progress Note ---
Subjective Date of Service: May 23, 2017. Subjective Pt evaluation today including: physical exam, chart review, lab review pt resting comfortably, changed to zyvox yesterday for VRE and MRSA in sacral wound. tolerating well. afebrile. wbc nml. no complaints. Problem List Medical Problems: (1) A-fib Status: Acute (2) Abnormal ECG Status: Acute (3) Acute electrocardiogram changes Status: Acute (4) Acute electrocardiogram changes Status: Acute (5) Acute kidney injury Status: Acute (6) Acute renal failure Status: Acute (7) YAMEL (acute kidney injury) Status: Acute (8) Anemia Status: Acute (9) Atrial fibrillation with RVR Status: Acute (10) CHF (congestive heart failure) Status: Acute (11) CHF (congestive heart failure) Status: Acute (12) Dysphagia Status: Acute (13) Edema Status: Acute (14) Elevated troponin Status: Acute (15) Hyperglycemia Status: Acute (16) Hypoglycemia Status: Acute (17) Hypoglycemia Status: Acute (18) Hypoglycemia Status: Acute (19) Hypoxia Status: Acute (20) Insulin dependent diabetes mellitus Status: Acute (21) Jaw pain Status: Acute (22) NSTEMI (non-ST elevated myocardial infarction) Status: Acute (23) Right leg pain Status: Acute (24) Sepsis Status: Acute (25) Shortness of breath Status: Acute (26) Supratherapeutic INR Status: Acute (27) Syncope Status: Acute (28) UTI (urinary tract infection) Status: Acute Objective Vital Signs Date Time Temp Pulse Resp B/P (MAP) Pulse Ox O2 Delivery O2 Flow Rate FiO2 05/23/17 08:00 100 BiPAP 05/23/17 07:27 36.5 78 20 124/81 (95) 100 BiPAP 3.0 05/23/17 00:00 Nasal Cannula 3.0 05/22/17 23:43 36.8 96 20 122/81 (95) 95 CPAP 2.0 05/22/17 22:00 95 97 2.0 05/22/17 20:00 Nasal Cannula 3.0 05/22/17 16:00 110 20 134/74 (94) 93 Room Air 05/22/17 15:44 Nasal Cannula 3.0 Physical Exam General Appearance: WD/WN, no apparent distress Eyes: normal inspection Neck: supple Respiratory/Chest: normal breath sounds, no respiratory distress Cardiovascular: no edema Abdomen: soft Extremities: non-tender, no pedal edema Neurologic/Psychiatric: alert, oriented x 3 Skin: normal color Laboratory Results Last 24 Hours Test 05/22/17 16:43 05/22/17 20:51 05/23/17 05:27 05/23/17 07:28 Bedside Glucose 104 mg/dl 110 mg/dl 165 mg/dl Prothrombin Time 23.1 SECONDS Prothromb Time International Ratio 2.2 Creatinine 1.83 mg/dl Est Creatinine Clear Calc Drug Dose 46.8 ml/min Estimated GFR () 39.2 Estimated GFR (Non- 33.8 Test 05/23/17 11:18 Bedside Glucose 122 mg/dl Assessment and Plan (1) Sacral wound Assessment & Plan: continue zyvox, can change to po. can melanielow in wound center post d/c.
[2017-05-23] MEDS: CEFEPIME IV 2,000 MG in SYRINGE 7.5 ML IV SCH (13:38)
[2017-05-23 14:58] VITALS: BP 105/70; PULSE 82; TEMP 36.5; O2SAT 99
[2017-05-23 16:00] VITALS: O2SAT 99
[2017-05-23] MEDS: LINEZOLID 600 MG TAB PO SCH (17:28)
[2017-05-23] MEDS: WARFARIN SOD 5 MG TAB PO SCH (17:28)
--- NOTE | 2017-05-23 18:28 | Progress Note ---
Internal Med Progress Note Date of Service: May 23, 2017. Provider Documentation: SUBJECTIVE: resting comfortably had his lunch denies chest pain or sob no cough afebrile has some pain in back denies any other complaints OBJECTIVE: Vital Signs-as noted below Exam: General-alert and oriented. Not in distress ENT-normal hearing. Neck-No neck masses Lungs-CTA b/l no wheezing or crackles Heart-S1 and S2 heard regular rate and rhythm no murmurs Abdomen-soft Bowels sounds present non tender no distension Extremities-lower extremity edema present no erythema Neuro-alert and oriented moves extremities Lab data as noted below. ASSESSMENT & PLAN: 81-year-old man transferred from [facility] for worsening pain in his sacrum. He was found to have sepsis secondary to UTI and superimposed sacral wound infection and delirium 1. Sepsis secondary to UTI versus sacral wound infection-resuscitated, Initially treated with iv vanco and cefepime sacral wound cx growing mrsa and VRE Urine cx e.coli abx changed to Zyvox and cefepime continued. Remeron held as started on zyvox currently hemodynamically stable Appreciate ID inputs 2. Acute delirium-Encephalopathy most likely secondary to infection versus .currently stable 3. Hypoxia 2/2 chronic respiratory failure. Cont supplemental oxygen per home regimen. stable currently. 4. Sacral wound-stage II, venous stasis ulcers on leg-wound care consult in place, covered with OPTi foam. Cx and abx as above. Appreciate ID inputs. F/u with wound care on discharge. 5. Ischemic cardiomyopathy-currently stable.seen by Cardiology. Home meds. 6. N STEMI-type II secondary to demand ischemia secondary to sepsis. stable. 7. Chronic gout due to renal impairment-no acute flare. On chronic prednisone and chronic allopurinol. 8. Atrial fibrillation-on Coumadin and metoprolol. stable INR 2.2 today 9. CKD stage III- around baseline. 10. Diabetes mellitus type 2- On insulin sliding scale and Lantus . Will monitor 11. Hypertension-at goal,on lasix and Lopressor. 11. CAD-stable, status post CABG without symptoms. On statin, b leah, DVT prophylaxis-Coumadin DO NOT RESUSCITATE Disposition-To be determined. Vital Signs: Date Time Temp Pulse Resp B/P (MAP) Pulse Ox O2 Delivery O2 Flow Rate FiO2 05/23/17 14:58 36.5 82 18 105/70 (82) 99 Nasal Cannula 2.0 05/23/17 08:00 100 BiPAP 05/23/17 07:27 36.5 78 20 124/81 (95) 100 BiPAP 3.0 05/23/17 00:00 Nasal Cannula 3.0 05/22/17 23:43 36.8 96 20 122/81 (95) 95 CPAP 2.0 05/22/17 22:00 95 97 2.0 05/22/17 20:00 Nasal Cannula 3.0 Lab Results: Results Past 24 Hours Test 05/22/17 20:51 05/23/17 05:27 05/23/17 07:28 05/23/17 11:18 Range/Units Bedside Glucose 110 165 122 70-99 mg/dl Prothrombin Time 23.1 9.0-12.0 SECONDS Prothromb Time International Ratio 2.2 0.9-1.1 Creatinine 1.83 0.60-1.40 mg/dl Est Creatinine Clear Calc Drug Dose 46.8 ml/min Estimated GFR () 39.2 Estimated GFR (Non- 33.8 Test 05/23/17 17:12 Range/Units Bedside Glucose 183 70-99 mg/dl
[2017-05-23 22:37] VITALS: PULSE 88; O2SAT 96
[2017-05-24 00:19] VITALS: BP 111/70; PULSE 79; TEMP 37; O2SAT 97
[2017-05-24 03:33] VITALS: PULSE 82; O2SAT 97
[2017-05-24] MEDS: LINEZOLID 600 MG TAB PO SCH ×2 (05:04→17:40)
[2017-05-24 07:35] VITALS: BP 137/81; PULSE 80; TEMP 36.4; O2SAT 97
[2017-05-24 08:23] LABS: HEMATOCRIT 33.5 % (42-52); MEAN CELL VOLUME 90.5 fL (80-100); MEAN CORPUSCULAR HEMOGLOBIN 29.7 pg (25-34); MEAN CORPUSCULAR HGB CONC 32.8 g/dl (32-36); MEAN PLATELET VOLUME 9.9 fL (7.4-10.4); PLATELET COUNT 131 K/uL (130-400); RED CELL DISTRIBUTION WIDTH CV 17.9 % (11.5-14.5); RED CELL DISTRIBUTION WIDTH SD 58.9 fL (36.4-46.3); WHITE BLOOD COUNT 10.49 K/uL (4.8-10.8)
[2017-05-24] MEDS: METOPROLOL TARTRATE 50 MG TAB PO SCH ×2 (08:30→20:22)
[2017-05-24] MEDS: CHOLESTYRAMINE LIGHT 4 GM PKT PO SCH ×5 (08:30→20:25)
[2017-05-24] MEDS: FUROSEMIDE 80 MG TAB PO SCH ×2 (08:30→20:23)
[2017-05-24] MEDS: POTASSIUM CHLORIDE 20 MEQ TABCR PO SCH ×2 (08:30→20:24)
[2017-05-24] MEDS: ALLOPURINOL 300 MG TAB PO SCH (08:31)
[2017-05-24] MEDS: GABAPENTIN 100 MG CAP PO SCH ×3 (08:31→20:22)
[2017-05-24] MEDS: PANTOprazole SOD 40 MG TAB PO SCH ×2 (08:31→20:24)
[2017-05-24] MEDS: INSULIN ASPART 100 UNITS/ML 3 ML PEN SC SCH ×4 (08:37→21:17)
[2017-05-24] MEDS: INSULIN GLARGINE SOLOSTAR 100 UNITS/ML 3 ML PEN SC SCH ×2 (08:38→21:17)
[2017-05-24 08:44] LABS: BASO % 0.2 %; BASO ABS # 0.02 K/uL (0-0.2); EOS % 4.1 %; EOS ABS # 0.43 K/uL (0-0.5); IG# 0.03 K/uL (0.00-0.02); LYMPH % 6.8 %; LYMPH ABS # 0.71 K/uL (1.2-3.4); MONO % 6.4 %; MONO ABS # 0.67 K/uL (0.11-0.59); NEUT % 82.2 %; NEUT ABS # 8.63 K/uL (1.4-6.5)
[2017-05-24 08:59] LABS: CALCIUM 8.9 mg/dl (8.5-10.1); CREATININE 1.77 mg/dl (0.60-1.40)
[2017-05-24] MEDS ORDERED: POTASSIUM CHLORIDE 20 MEQ TABCR PO STA (10:00)
--- NOTE | 2017-05-24 10:25 | Progress Note ---
Subjective Date of Service: May 24, 2017. Subjective Pt evaluation today including: conversation w/ patient, physical exam, chart review, lab review pt seen in followup, tolerating zyvox. states he does not wish to return to wound center post d/c. denies sacal/back pain. no f/c. denies abd pain no n/v/ d. all remaining ros reviewed and are negative. Problem List Medical Problems: (1) A-fib Status: Acute (2) Abnormal ECG Status: Acute (3) Acute electrocardiogram changes Status: Acute (4) Acute electrocardiogram changes Status: Acute (5) Acute kidney injury Status: Acute (6) Acute renal failure Status: Acute (7) YAMEL (acute kidney injury) Status: Acute (8) Anemia Status: Acute (9) Atrial fibrillation with RVR Status: Acute (10) CHF (congestive heart failure) Status: Acute (11) CHF (congestive heart failure) Status: Acute (12) Dysphagia Status: Acute (13) Edema Status: Acute (14) Elevated troponin Status: Acute (15) Hyperglycemia Status: Acute (16) Hypoglycemia Status: Acute (17) Hypoglycemia Status: Acute (18) Hypoglycemia Status: Acute (19) Hypoxia Status: Acute (20) Insulin dependent diabetes mellitus Status: Acute (21) Jaw pain Status: Acute (22) NSTEMI (non-ST elevated myocardial infarction) Status: Acute (23) Right leg pain Status: Acute (24) Sepsis Status: Acute (25) Shortness of breath Status: Acute (26) Supratherapeutic INR Status: Acute (27) Syncope Status: Acute (28) UTI (urinary tract infection) Status: Acute Objective Vital Signs Date Time Temp Pulse Resp B/P (MAP) Pulse Ox O2 Delivery O2 Flow Rate FiO2 05/24/17 09:50 Nasal Cannula 2.0 05/24/17 07:35 36.4 80 22 137/81 (99) 97 BiPAP 2.0 05/24/17 03:33 82 97 2.0 05/24/17 00:19 37.0 79 20 111/70 (84) 97 CPAP 2.0 05/24/17 00:00 CPAP 2.0 05/23/17 22:37 88 96 2.0 05/23/17 16:00 99 Nasal Cannula 2.0 CPAP 05/23/17 14:58 36.5 82 18 105/70 (82) 99 Nasal Cannula 2.0 Physical Exam General Appearance: WD/WN, no apparent distress Eyes: normal inspection, EOMI Neck: supple Respiratory/Chest: lungs clear, + decreased breath sounds Cardiovascular: regular rate, rhythm Abdomen: non tender, soft Extremities: non-tender, no pedal edema Neurologic/Psychiatric: alert, oriented x 3 Laboratory Results Item Value Date Time Gram Stain - Final Resulted 05/19/17 191 Skin Sacrum C.difficile Toxin B Gene (PCR) - Final Complete 05/19/17 1730 Stool No C. difficile toxin B gene detected Blood Culture - Preliminary Resulted 05/19/17 1406 Blood NO GROWTH TO DATE. Blood Culture - Preliminary Resulted 05/19/17 1358 Blood NO GROWTH TO DATE. Urine Culture - Final Complete 05/19/17 1222 Urine , Clean Catch Escherichia Coli Gram Stain - Final Complete 05/19/17 191 Skin Sacrum Last 24 Hours Test 05/23/17 11:18 05/23/17 17:12 05/23/17 20:23 05/24/17 07:37 Bedside Glucose 122 mg/dl 183 mg/dl 184 mg/dl 133 mg/dl Test 05/24/17 08:06 White Blood Count 10.49 K/uL Red Blood Count 3.70 M/uL Hemoglobin 11.0 g/dL Hematocrit 33.5 % Mean Corpuscular Volume 90.5 fL Mean Corpuscular Hemoglobin 29.7 pg Mean Corpuscular Hemoglobin Concent 32.8 g/dl Platelet Count 131 K/uL Mean Platelet Volume 9.9 fL Neutrophils (%) (Auto) 82.2 % Lymphocytes (%) (Auto) 6.8 % Monocytes (%) (Auto) 6.4 % Eosinophils (%) (Auto) 4.1 % Basophils (%) (Auto) 0.2 % Neutrophils # (Auto) 8.63 K/uL Lymphocytes # (Auto) 0.71 K/uL Monocytes # (Auto) 0.67 K/uL Eosinophils # (Auto) 0.43 K/uL Basophils # (Auto) 0.02 K/uL RDW Standard Deviation 58.9 fL RDW Coefficient of Variation 17.9 % Immature Granulocyte % (Auto) 0.3 % Immature Granulocyte # (Auto) 0.03 K/uL Large Platelets 1+ Sodium Level 138 mmol/L Potassium Level 3.0 mmol/L Chloride Level 102 mmol/L Carbon Dioxide Level 27 mmol/L Anion Gap 9.0 mmol/L Blood Urea Nitrogen 54 mg/dl Creatinine 1.77 mg/dl Est Creatinine Clear Calc Drug Dose 48.4 ml/min Estimated GFR () 40.8 Estimated GFR (Non- 35.2 BUN/Creatinine Ratio 30.3 Random Glucose 131 mg/dl Calcium Level 8.9 mg/dl Magnesium Level 1.7 mg/dl Assessment and Plan (1) Sacral wound Assessment & Plan: continue zyvox, can change to po. would give 14 days. can jonny in wound center post d/c if agreeable. No new ID recs at this time.
[2017-05-24] MEDS: CEFEPIME IV 2,000 MG in SYRINGE 7.5 ML IV SCH (14:26)
[2017-05-24 15:16] VITALS: BP 120/87; PULSE 82; TEMP 36.9; O2SAT 99
[2017-05-24] MEDS: WARFARIN SOD 5 MG TAB PO SCH (15:59)
--- NOTE | 2017-05-24 16:37 | Progress Note ---
Internal Med Progress Note Date of Service: May 24, 2017. Provider Documentation: SUBJECTIVE: sleeping with bipap on says has mild abdominal discomfort eating ok 'moved bowels no chest pain or sob denies back pain OBJECTIVE: Vital Signs-as noted below Exam: General-alert and oriented. Not in distress ENT-normal hearing. Neck-No neck masses Lungs-CTA b/l no wheezing or crackles Heart-S1 and S2 heard regular rate and rhythm no murmurs Abdomen-soft Bowels sounds present non tender no distension Extremities-lower extremity edema present in stocking Neuro-alert and oriented moves extremities Lab data as noted below. ASSESSMENT & PLAN: 81-year-old man transferred from [facility] for worsening pain in his sacrum. He was found to have sepsis secondary to UTI and superimposed sacral wound infection and delirium 1. Sepsis secondary to UTI versus sacral wound infection-resuscitated, Initially treated with iv vanco and cefepime sacral wound cx growing mrsa and VRE Urine cx e.coli abx changed to Zyvox and cefepime continued. Remeron held as started on zyvox currently hemodynamically stable Appreciate ID inputs to complete 14 days of Zyvox. cefepime stopped and started on Omnicef to complete one week course 2. Acute delirium-Encephalopathy most likely secondary to infection versus .currently stable Stable conditions: 3. Hypoxia 2/2 chronic respiratory failure. Cont supplemental oxygen per home regimen. stable currently. 4. Sacral wound-stage II, venous stasis ulcers on leg-wound care consult in place, covered with OPTi foam. Cx and abx as above. Appreciate ID inputs. F/u with wound care on discharge. 5. Ischemic cardiomyopathy-currently stable.seen by Cardiology. Home meds. 6. N STEMI-type II secondary to demand ischemia secondary to sepsis. stable. 7. Chronic gout due to renal impairment-no acute flare. On chronic prednisone and chronic allopurinol. 8. Atrial fibrillation-on Coumadin and metoprolol. stable INR 2.2 today 9. CKD stage III- around baseline. 10. Diabetes mellitus type 2- On insulin sliding scale and Lantus . Will monitor 11. Hypertension-at goal,on lasix and Lopressor. 11. CAD-stable, status post CABG without symptoms. On statin, b leah, DVT prophylaxis-Coumadin DO NOT RESUSCITATE Disposition-pt/ot possible d/c in 1-2days social service for d/c planning Vital Signs: Date Time Temp Pulse Resp B/P (MAP) Pulse Ox O2 Delivery O2 Flow Rate FiO2 05/24/17 15:16 36.9 82 20 120/87 (98) 99 Nasal Cannula 2.0 05/24/17 09:50 Nasal Cannula 2.0 05/24/17 07:35 36.4 80 22 137/81 (99) 97 BiPAP 2.0 05/24/17 03:33 82 97 2.0 05/24/17 00:19 37.0 79 20 111/70 (84) 97 CPAP 2.0 05/24/17 00:00 CPAP 2.0 05/23/17 22:37 88 96 2.0 Lab Results: Results Past 24 Hours Test 05/23/17 17:12 05/23/17 20:23 05/24/17 07:37 05/24/17 08:06 Range/Units Bedside Glucose 183 184 133 70-99 mg/dl White Blood Count 10.49 4.8-10.8 K/uL Red Blood Count 3.70 4.7-6.1 M/uL Hemoglobin 11.0 14.0-18.0 g/dL Hematocrit 33.5 42-52 % Mean Corpuscular Volume 90.5 80-100 fL Mean Corpuscular Hemoglobin 29.7 25-34 pg Mean Corpuscular Hemoglobin Concent 32.8 32-36 g/dl Platelet Count 131 130-400 K/uL Mean Platelet Volume 9.9 7.4-10.4 fL Neutrophils (%) (Auto) 82.2 % Lymphocytes (%) (Auto) 6.8 % Monocytes (%) (Auto) 6.4 % Eosinophils (%) (Auto) 4.1 % Basophils (%) (Auto) 0.2 % Neutrophils # (Auto) 8.63 1.4-6.5 K/uL Lymphocytes # (Auto) 0.71 1.2-3.4 K/uL Monocytes # (Auto) 0.67 0.11-0.59 K/uL Eosinophils # (Auto) 0.43 0-0.5 K/uL Basophils # (Auto) 0.02 0-0.2 K/uL RDW Standard Deviation 58.9 36.4-46.3 fL RDW Coefficient of Variation 17.9 11.5-14.5 % Immature Granulocyte % (Auto) 0.3 % Immature Granulocyte # (Auto) 0.03 0.00-0.02 K/uL Large Platelets 1+ Sodium Level 138 136-145 mmol/L Potassium Level 3.0 3.5-5.1 mmol/L Chloride Level 102 98-107 mmol/L Carbon Dioxide Level 27 21-32 mmol/L Anion Gap 9.0 3-11 mmol/L Blood Urea Nitrogen 54 7-18 mg/dl Creatinine 1.77 0.60-1.40 mg/dl Est Creatinine Clear Calc Drug Dose 48.4 ml/min Estimated GFR () 40.8 Estimated GFR (Non- 35.2 BUN/Creatinine Ratio 30.3 10-20 Random Glucose 131 70-99 mg/dl Calcium Level 8.9 8.5-10.1 mg/dl Magnesium Level 1.7 1.8-2.4 mg/dl Test 05/24/17 11:19 Range/Units Bedside Glucose 159 70-99 mg/dl
[2017-05-24] MEDS: HYDROCODONE/ACETAMIN 5/325MG TAB PO PRN (20:21)
[2017-05-24] MEDS: MAGNESIUM CHLORIDE 64MG DELAYED REL TAB PO SCH (20:26)
[2017-05-24] MEDS: CEFDINIR 300 MG CAP PO SCH (20:28)
[2017-05-24] MEDS: BOOST GLUCOSE CONTROL PO SCH (21:20)
[2017-05-24] MEDS: MoRPHine SULFATE 2 MG/ML CARP IV PRN (21:52)
[2017-05-24 22:15] VITALS: PULSE 77; O2SAT 97
[2017-05-24 23:23] VITALS: BP 120/74; PULSE 74; TEMP 36.6; O2SAT 95
[2017-05-25] MEDS: LINEZOLID 600 MG TAB PO SCH ×2 (05:08→17:32)
[2017-05-25 06:20] LABS: INR 2.3 (0.9-1.1)
[2017-05-25 07:23] VITALS: BP 123/85; PULSE 71; TEMP 36.5; O2SAT 96
[2017-05-25] MEDS: CHOLESTYRAMINE LIGHT 4 GM PKT PO SCH ×4 (08:00→21:05)
[2017-05-25 08:19] LABS: CALCIUM 8.8 mg/dl (8.5-10.1); CREATININE 1.61 mg/dl (0.60-1.40); POTASSIUM 3.3 mmol/L (3.5-5.1)
[2017-05-25] MEDS: BOOST GLUCOSE CONTROL PO SCH ×2 (08:26→20:00)
[2017-05-25] MEDS: CEFDINIR 300 MG CAP PO SCH ×2 (08:27→21:05)
[2017-05-25] MEDS: MAGNESIUM CHLORIDE 64MG DELAYED REL TAB PO SCH ×2 (08:27→21:06)
[2017-05-25] MEDS: GABAPENTIN 100 MG CAP PO SCH ×3 (08:27→21:05)
[2017-05-25] MEDS: ALLOPURINOL 300 MG TAB PO SCH (08:27)
[2017-05-25] MEDS: POTASSIUM CHLORIDE 20 MEQ TABCR PO SCH ×2 (08:27→21:05)
[2017-05-25] MEDS: PANTOprazole SOD 40 MG TAB PO SCH ×2 (08:27→21:05)
[2017-05-25] MEDS: METOPROLOL TARTRATE 50 MG TAB PO SCH ×2 (08:28→21:05)
[2017-05-25] MEDS: FUROSEMIDE 80 MG TAB PO SCH ×2 (08:28→21:05)
[2017-05-25] MEDS: INSULIN GLARGINE SOLOSTAR 100 UNITS/ML 3 ML PEN SC SCH ×2 (08:37→21:07)
[2017-05-25] MEDS: INSULIN ASPART 100 UNITS/ML 3 ML PEN SC SCH ×5 (08:38→21:08)
[2017-05-25] MEDS: HYDROCODONE/ACETAMIN 5/325MG TAB PO PRN ×2 (08:47→14:26)
[2017-05-25 14:23] VITALS: BP 101/62; PULSE 86; TEMP 36.7; O2SAT 96
--- NOTE | 2017-05-25 15:50 | Progress Note ---
Internal Med Progress Note Date of Service: May 25, 2017. Provider Documentation: SUBJECTIVE: says having significant pain in his back otherwise doing ok denies chest pain or sob afebrile eating ok ok for [facility] tomorrow OBJECTIVE: Vital Signs-as noted below Exam: General-alert and oriented. Not in distress ENT-normal hearing. Neck-No neck masses Lungs-CTA b/l no wheezing or crackles Heart-S1 and S2 heard regular rate and rhythm no murmurs Abdomen-soft Bowels sounds present non tender no distension Extremities-lower extremity edema present in stocking Skin stage 2-3 decubitus ulcers Neuro-alert and oriented moves extremities Lab data as noted below. ASSESSMENT & PLAN: 81-year-old man transferred from [facility] for worsening pain in his sacrum. He was found to have sepsis secondary to UTI and superimposed sacral wound infection and delirium 1. Sepsis secondary to UTI versus sacral wound infection-resuscitated, Initially treated with iv vanco and cefepime sacral wound cx growing mrsa and VRE Urine cx e.coli abx changed to Zyvox and cefepime continued. Remeron held as started on zyvox currently hemodynamically stable Appreciate ID inputs to complete 14 days of Zyvox. cefepime stopped and started on Omnicef to complete one week course stable 2. Acute delirium-Encephalopathy most likely secondary to infection versus .currently stable Stable conditions: 3. Hypoxia 2/2 chronic respiratory failure. Cont supplemental oxygen per home regimen. stable currently. 4. Sacral wound-stage II, venous stasis ulcers on leg-wound care consult in place, covered with OPTi foam. Cx and abx as above. Appreciate ID inputs. F/u with wound care on discharge. 5. Ischemic cardiomyopathy-currently stable.seen by Cardiology. Home meds. 6. N STEMI-type II secondary to demand ischemia secondary to sepsis. stable. 7. Chronic gout due to renal impairment-no acute flare. On chronic prednisone and chronic allopurinol. 8. Atrial fibrillation-on Coumadin and metoprolol. stable INR 2.3 today 9. CKD stage III- around baseline. 10. Diabetes mellitus type 2- On insulin sliding scale and Lantus . Will monitor 11. Hypertension-at goal,on lasix and Lopressor. 11. CAD-stable, status post CABG without symptoms. On statin, b leah, DVT prophylaxis-Coumadin DO NOT RESUSCITATE Disposition-pt/ot possible d/c in am for [facility] for d/c planning Vital Signs: Date Time Temp Pulse Resp B/P (MAP) Pulse Ox O2 Delivery O2 Flow Rate FiO2 05/25/17 15:34 Nasal Cannula 2.0 BiPAP 05/25/17 14:23 36.7 86 22 101/62 (75) 96 Nasal Cannula 2.0 05/25/17 08:00 Nasal Cannula 2.0 BiPAP 05/25/17 07:23 36.5 71 20 123/85 (98) 96 BiPAP 2.0 05/24/17 23:59 Room Air 05/24/17 23:23 36.6 74 20 120/74 (89) 95 CPAP 05/24/17 22:15 77 97 2.0 05/24/17 16:00 Room Air Lab Results: Results Past 24 Hours Test 05/24/17 16:43 05/24/17 20:18 05/25/17 05:28 05/25/17 05:30 Range/Units Bedside Glucose 193 175 70-99 mg/dl Sodium Level 137 136-145 mmol/L Potassium Level 3.3 3.5-5.1 mmol/L Chloride Level 102 98-107 mmol/L Carbon Dioxide Level 29 21-32 mmol/L Anion Gap 6.0 3-11 mmol/L Blood Urea Nitrogen 51 7-18 mg/dl Creatinine 1.61 0.60-1.40 mg/dl Est Creatinine Clear Calc Drug Dose 53.2 ml/min Estimated GFR () 45.8 Estimated GFR (Non- 39.5 BUN/Creatinine Ratio 31.9 10-20 Random Glucose 132 70-99 mg/dl Calcium Level 8.8 8.5-10.1 mg/dl Magnesium Level 1.7 1.8-2.4 mg/dl Prothrombin Time 23.6 9.0-12.0 SECONDS Prothromb Time International Ratio 2.3 0.9-1.1 Test 05/25/17 07:36 05/25/17 11:41 Range/Units Bedside Glucose 135 150 70-99 mg/dl
[2017-05-25] MEDS: MoRPHine SULFATE 2 MG/ML CARP IV PRN (17:32)
[2017-05-25] MEDS: WARFARIN SOD 5 MG TAB PO SCH (17:33)
[2017-05-25 23:15] VITALS: BP 150/71; PULSE 100; TEMP 36.7; O2SAT 95
[2017-05-26] MEDS: LINEZOLID 600 MG TAB PO SCH (05:31)
[2017-05-26] MEDS: HYDROCODONE/ACETAMIN 5/325MG TAB PO PRN (06:25)
[2017-05-26 07:03] VITALS: BP 129/71; PULSE 86; TEMP 37.1; O2SAT 97
[2017-05-26] MEDS: INSULIN ASPART 100 UNITS/ML 3 ML PEN SC SCH ×2 (07:35→12:44)
[2017-05-26 08:27] LABS: BASO % 0.2 %; BASO ABS # 0.02 K/uL (0-0.2); EOS % 3.7 %; EOS ABS # 0.36 K/uL (0-0.5); HEMATOCRIT 36.3 % (42-52); IG# 0.03 K/uL (0.00-0.02); LYMPH % 7.5 %; LYMPH ABS # 0.72 K/uL (1.2-3.4); MEAN CELL VOLUME 90.1 fL (80-100); MEAN CORPUSCULAR HEMOGLOBIN 29.8 pg (25-34); MEAN CORPUSCULAR HGB CONC 33.1 g/dl (32-36); MEAN PLATELET VOLUME 9.6 fL (7.4-10.4); MONO % 5.9 %; MONO ABS # 0.57 K/uL (0.11-0.59); NEUT % 82.4 %; NEUT ABS # 7.93 K/uL (1.4-6.5); PLATELET COUNT 169 K/uL (130-400); RED CELL DISTRIBUTION WIDTH SD 58.2 fL (36.4-46.3); WHITE BLOOD COUNT 9.63 K/uL (4.8-10.8)
[2017-05-26 08:52] LABS: CALCIUM 8.8 mg/dl (8.5-10.1); CREATININE 1.77 mg/dl (0.60-1.40); POTASSIUM 3.3 mmol/L (3.5-5.1)
[2017-05-26] MEDS: INSULIN GLARGINE SOLOSTAR 100 UNITS/ML 3 ML PEN SC SCH (09:12)
[2017-05-26] MEDS: POTASSIUM CHLORIDE 20 MEQ TABCR PO SCH (09:13)
[2017-05-26] MEDS: GABAPENTIN 100 MG CAP PO SCH ×2 (09:13→12:35)
[2017-05-26] MEDS: FUROSEMIDE 80 MG TAB PO SCH (09:13)
[2017-05-26] MEDS: METOPROLOL TARTRATE 50 MG TAB PO SCH (09:13)
[2017-05-26] MEDS: ALLOPURINOL 300 MG TAB PO SCH (09:14)
[2017-05-26] MEDS: PANTOprazole SOD 40 MG TAB PO SCH (09:14)
[2017-05-26] MEDS: CHOLESTYRAMINE LIGHT 4 GM PKT PO SCH ×2 (09:14→12:34)
[2017-05-26] MEDS: MAGNESIUM CHLORIDE 64MG DELAYED REL TAB PO SCH (09:14)
[2017-05-26] MEDS: BOOST GLUCOSE CONTROL PO SCH (09:14)
[2017-05-26 11:59] VITALS: BP 129/71; PULSE 86; TEMP 37.1; O2SAT 97
[2017-05-26] MEDS ORDERED: POTASSIUM CHLORIDE 20 MEQ TABCR PO ONE (12:15)
--- NOTE | 2017-05-26 12:25 | Progress Note ---
Internal Med Progress Note Date of Service: May 26, 2017. Provider Documentation: SUBJECTIVE: says his back is sore has diarrhea for sometime now afebrile appetite ok no sob or chest pain ok for [facility] today OBJECTIVE: Vital Signs-as noted below Exam: General-alert and oriented. Not in distress ENT-normal hearing. Neck-No neck masses Lungs-CTA b/l no wheezing or crackles Heart-S1 and S2 heard regular rate and rhythm no murmurs Abdomen-soft Bowels sounds present non tender no distension Extremities-lower extremity edema present in wrapTUBIGRIP Skin stage 2-3 decubitus ulcers Neuro-alert and oriented moves extremities Lab data as noted below. ASSESSMENT & PLAN: 81-[facility]. He was found to have sepsis secondary to UTI and superimposed sacral wound infection and delirium 1. Sepsis secondary to UTI versus sacral wound infection-resuscitated, Initially treated with iv vanco and cefepime sacral wound cx growing mrsa and VRE Urine cx e.coli abx changed to Zyvox and cefepime continued. Remeron held as started on zyvox currently hemodynamically stable Appreciate ID inputs to complete 14 days of Zyvox. competed course for uti with cefepime sand Omnicef . stable 2. Acute delirium-Encephalopathy most likely secondary to infection versus .currently stable 3. Hypoxia 2/2 chronic respiratory failure. Cont supplemental oxygen per home regimen. stable currently. 4. Sacral wound-stage II, venous stasis ulcers on leg-wound care consult in place, OPEN WOUNDS DRESSED WITH AQUACEL AG, KERLIX AND TUBIGRIP FOR COMPRESSION as per wound care. Cx and abx as above. Appreciate ID inputs. F/u with wound care on discharge. 5. Ischemic cardiomyopathy-currently stable.seen by Cardiology. Home meds. 6. N STEMI-type II secondary to demand ischemia secondary to sepsis. stable. 7. Chronic gout due to renal impairment-no acute flare. On chronic prednisone and chronic allopurinol. 8. Atrial fibrillation-on Coumadin and metoprolol. stable INR 2.3 . 9. CKD stage III- around baseline. 10. Diabetes mellitus type 2- On insulin sliding scale and Lantus . Will monitor 11. Hypertension-at goal,on lasix and Lopressor. 11. CAD-stable, status post CABG without symptoms. On statin, b leah, DVT prophylaxis-Coumadin DO NOT RESUSCITATE Disposition-pt/ot Discharge to [facility] today Vital Signs: Date Time Temp Pulse Resp B/P (MAP) Pulse Ox O2 Delivery O2 Flow Rate FiO2 05/26/17 11:59 37.1 86 20 97 Nasal Cannula 05/26/17 09:35 Nasal Cannula 2.0 05/26/17 07:03 37.1 86 20 129/71 (90) 97 BiPAP 05/26/17 00:00 CPAP 2.0 05/25/17 23:15 36.7 100 20 150/71 (97) 95 CPAP 05/25/17 20:00 BiPAP 05/25/17 15:34 Nasal Cannula 2.0 BiPAP 05/25/17 14:23 36.7 86 22 101/62 (75) 96 Nasal Cannula 2.0 Lab Results: Results Past 24 Hours Test 05/25/17 16:30 05/25/17 20:19 05/26/17 08:08 05/26/17 11:40 Range/Units Bedside Glucose 219 178 144 70-99 mg/dl White Blood Count 9.63 4.8-10.8 K/uL Red Blood Count 4.03 4.7-6.1 M/uL Hemoglobin 12.0 14.0-18.0 g/dL Hematocrit 36.3 42-52 % Mean Corpuscular Volume 90.1 80-100 fL Mean Corpuscular Hemoglobin 29.8 25-34 pg Mean Corpuscular Hemoglobin Concent 33.1 32-36 g/dl Platelet Count 169 130-400 K/uL Mean Platelet Volume 9.6 7.4-10.4 fL Neutrophils (%) (Auto) 82.4 % Lymphocytes (%) (Auto) 7.5 % Monocytes (%) (Auto) 5.9 % Eosinophils (%) (Auto) 3.7 % Basophils (%) (Auto) 0.2 % Neutrophils # (Auto) 7.93 1.4-6.5 K/uL Lymphocytes # (Auto) 0.72 1.2-3.4 K/uL Monocytes # (Auto) 0.57 0.11-0.59 K/uL Eosinophils # (Auto) 0.36 0-0.5 K/uL Basophils # (Auto) 0.02 0-0.2 K/uL RDW Standard Deviation 58.2 36.4-46.3 fL RDW Coefficient of Variation 18.0 11.5-14.5 % Immature Granulocyte % (Auto) 0.3 % Immature Granulocyte # (Auto) 0.03 0.00-0.02 K/uL Sodium Level 138 136-145 mmol/L Potassium Level 3.3 3.5-5.1 mmol/L Chloride Level 103 98-107 mmol/L Carbon Dioxide Level 28 21-32 mmol/L Anion Gap 7.0 3-11 mmol/L Blood Urea Nitrogen 56 7-18 mg/dl Creatinine 1.77 0.60-1.40 mg/dl Est Creatinine Clear Calc Drug Dose 48.4 ml/min Estimated GFR () 40.8 Estimated GFR (Non- 35.2 BUN/Creatinine Ratio 31.5 10-20 Random Glucose 148 70-99 mg/dl Calcium Level 8.8 8.5-10.1 mg/dl Magnesium Level 1.6 1.8-2.4 mg/dl
[2017-05-26] MEDS ORDERED: LINE1TAB2 PO (12:41)
[2017-05-26] MEDS ORDERED: NVLGIPEN SC (12:41)
[2017-05-26] MEDS ORDERED: SLWMEC PO (12:41)
[2017-05-26] MEDS ORDERED: LISI-461 PO (12:41)
[2017-05-26] MEDS ORDERED: ISOS30TA3 PO (12:41)
[2017-05-26] MEDS ORDERED: NUTR-7 PO (12:41)
[2017-05-26] MEDS ORDERED: HYDR-5688 PO (12:41)
[2017-05-26] MEDS ORDERED: INSDGIPEN SC (12:41)
--- NOTE | 2017-05-26 12:50 | Discharge Instructions ---
Discharge Instructions Date of Service May 26, 2017. Admission Reason for Admission: Sacral Wound, Sepsis, Uti Discharge Discharge Diagnosis / Problem: SEPSIS, UTI, SACRAL WOUND Discharge Goals Goal(s): Decrease discomfort, Improve function Activity Recommendations Activity Level: Assistance Required Therapies: Physical Therapy, Occupational Therapy . Additional Information Patient informed of condition: Yes Advance Directives: Yes DNR: Yes Level of Care: Skilled Communicable Disease: No Prognosis: Stable Oxygen at (LPM): 2LTS VIA NC Reyes Catheter: No Instructions / Follow-Up Instructions / Follow-Up FOLLOWUP WITH FAMILY DOCTOR IN 4-5 DAYS FOLLOWUP WITH WOUND CLINIC SCHEDULED. FOLLOWUP WITH CARDIOLOGY IN 2-3 WEEKS. PLEASE FOLLOWUP ON COUMADIN LEVELS. DAILY WEIGHTS. MONITOR BLOOD PRESSURE LISINOPRIL AND IMDUR DOSE HAS BEEN REDUCED. CAN RESTART REMERON ONE WEEK AFTER COMPLETION OF ZYVOX COURSE. LAB: BMP WITH MG LEVELS IN ONE WEEK AND FOLLOW RESULTS WITH FAMILY DOCTOR. Current Hospital Diet Patient's current hospital diet: Diabetes Type 2 Diet Discharge Diet Recommended Diet: AHA Diet (Heart Healthy), Diabetes Type 2 Diet Pending Studies Studies pending at discharge: no Physician Orders On Transfer Special Precautions: FALL AND ASPIRATION PRECAUTIONS Vital Signs: EVERY 8HRS Additional Orders: PLEASE FOLLOWUP ON COUMADIN LEVELS. DAILY WEIGHTS. MONITOR BLOOD PRESSURE LISINOPRIL AND IMDUR DOSE HAS BEEN REDUCED. LAB: BMP WITH MG LEVELS IN ONE WEEK AND FOLLOW RESULTS WITH FAMILY DOCTOR. Laboratory Results Hemoglobin A1c Test 03/25/17 08:03 Range/Units Estimated Average Glucose 180 mg/dl Hemoglobin A1c 7.9 H 4.5-5.6 % Medical Emergencies . Who to Call and When: Medical Emergencies: If at any time you feel your situation is an emergency, please call 911 immediately. . Non-Emergent Contact Non-Emergency issues call your: Primary Care Provider . . "Provider Documentation" section prepared by Keith Louise. . Core Measure Problem Core Measures: None
--- NOTE | 2017-05-26 13:01 | Discharge Summary ---
Discharge Summary Date of Service May 26, 2017. Discharge Summary Admission Date: May 19, 2017 at 15:06 Discharge Date: May 26, 2017 Discharge Disposition: alf facility Principal Diagnosis: SEPSIS UTI SACRA WOUND WITH MRSA AND VRE Secondary Diagnoses/Problems: 1) Atrial fibrillation Status: Chronic (2) CAD (coronary artery disease) Permanent Comment: 1994 - CABG x 5 Status: Chronic (3) Chronic gout Status: Chronic (4) CKD (chronic kidney disease), stage III Status: Chronic (5) DM type 2 (diabetes mellitus, type 2) Status: Chronic (6) Dyslipidemia Status: Chronic (7) GERD (gastroesophageal reflux disease) Status: Chronic (8) HTN (hypertension) Status: Chronic (9) Ischemic cardiomyopathy Status: Chronic (10) SHAUNA (obstructive sleep apnea) Status: Chronic (11) Renal calculi Status: Chronic Procedures: CXR: 1. Mild pulmonary edema. 2. Marked cardiomegaly, similar to prior exam. Consultations: [facility] ID Medication Reconciliation New Medications: Insulin Glargine (Lantus Solostar) 100 Unit/Ml Inj 15 UNITS SC BID, #1 2 Refills Isosorbide Mononitrate Ext Rel (Imdur Ext Rel) 30 Mg Ertab 1 TAB PO DAILY for 30 Days, #30 TAB 2 Refills Lisinopril (Lisinopril) 10 Mg Tab 10 MG PO DAILY, #30 1 Refill Insulin Aspart (Novolog Flexpen) 100 Units/Ml Inj 0 UNITS SC ACHS, #1 2 Refills INSULIN SLIDING SCALE BLOOD GLUCOSE GOAL RANGE 120MG/DL TO 160MG/DL CORRECTION FACTOR 15MG/DL/UNIT CARB RATIO 1UNIT PER 6GMS OF CARB CONSUMED. Linezolid (Linezolid) 600 Mg Tab 600 MG PO Q12H for 10 Days, #20 TAB Magnesium Chloride (Slow-Mag Tab) 64 Mg Tabcr 64 MG PO DAILY, #30 Nutritional Supplements (Boost) 1 Liq Liq 1 CAN PO BID, #60 1 Refill Continued Medications: Acetaminophen Tab (Tylenol) 325 Mg Tab 650 MG PO Q6H PRN for Pain or Fever, TAB Albuterol Hfa (Ventolin Hfa) 200 Puffs/66575 Mcg Aers 1-2 PUFFS INH Q6H PRN for SOB/Wheezing Albuterol Sulfate (Albuterol Sulfate) 0.63 Mg/3 Ml Neb 1 VIAL NEB Q4 for 25 Days, #225 ML Allopurinol (Zyloprim) 300 Mg Tab 450 MG PO QAM, TAB Bisacodyl (Dulcolax) 10 Mg Sup 1 SUPP NC PRN for Constipation, SUP Cholestyramine (Bulk) (Cholestyramine) 1 Pow Pow 1 DOSE PO QID Ergocalciferol (Vitamin D2) Unknown Strength Tab 79339 UNITS PO MONTHLY Furosemide (Furosemide) 80 Mg Tab 80 MG PO BID Gabapentin (Neurontin) 100 Mg Cap 200 MG PO TID, CAP Hydrocodone/Acetaminophen 5MG/325MG ([place] 5MG/325MG) Tab 1 TABLET PO Q8 PRN for Pain, #10 TAB (This prescription has been renewed) PRN PAIN Loperamide Hcl (Imodium) 2 Mg Cap 2 MG PO Q6H PRN for LOOSE STOOL Metoprolol Tartrate (Lopressor) (Lopressor) 50 Mg Tab 50 MG PO BID, TAB Multivitamin (Multivitamin) Tab 1 TAB PO DAILY Nitroglycerin (Nitrostat) 0.4 Mg Tab 0.4 MG UT PRN PRN for Chest Pain Omeprazole (Prilosec) 20 Mg Capcr 40 MG PO BID, CAP Ondansetron Hcl (Zofran) 4 Mg Tab 4 MG PO Q6H PRN for Nausea Potassium Ext Rel (Klor-Con) 20 Meq Tabcr 20 MEQ PO BID Prednisone (Prednisone) 5 Mg Tab 5 MG PO DAILY, TAB Rosuvastatin Calcium (Crestor) 10 Mg Tab 10 MG PO QPM, TAB Sennosides (Senna) 8.6 Mg Cap 1 CAP PO DAILY PRN for Constipation Sodium Phosphates (Fleet Enema Six Pack) 1 Melissa Melissa 1 DOSE RE PRN for Constipation Warfarin Sodium (Coumadin) 5 Mg Tab 5 MG PO DAILY, TAB Discontinued Medications: Insulin Aspart (Novolog) 100 Units/Ml Inj 6 UNITS SC AC Insulin Aspart (Novolog) 100 Units/Ml Inj Unknown Dose SC AC pt is on a sliding scale 150-200 = 2 units 201-250 = 4 units 251-300 = 6 units 301-350 = 8 units 351-400 = 10 units Insulin Glargine (Lantus) 100 Unit/Ml Inj 50 UNITS SC QAM, VIAL Isosorbide Mononitrate Ext Rel (Imdur Ext Rel) 60 Mg Ertab 60 MG PO QAM, TAB Levofloxacin (Levaquin) 750 Mg Tab 750 MG PO DAILY, TAB Lisinopril (Zestril) 20 Mg Tab 20 MG PO DAILY, TAB Metolazone (Zaroxolyn) 2.5 Mg Tab 2.5 MG PO DAILY, TAB Mirtazapine Soltab (Remeron Soltab) 15 Mg Soltab 15 MG PO HS, TAB Admission Information HPI (per Admitting provider): Patient is an 81yo M from [facility] with a PMH of chronic A Fib (on coumadin), systolic CHF, ischemic cardiomyopathy, deep tissue injury to sacrum, DM II, CKD III, gout (on long-term steroids) and other medical problems listed below who presents after a syncopal event last evening. Patient denies any syncopal events last night or in the past but according to the facility staff, he was being transferred with a [id number] and collapsed forward and was unresponsive for a few seconds. Vitals were checked after the event and were stable. Had another event last week during transfer from sitting to standing. Patient was recently admitted from Apr 05-April 14 for acute on chronic systolic CHF exacerbation and was treated with IV lasix. Patient's main concern is severe pain from chronic sacral wound for which he follows with wound care clinic. Notes increased pain over the past week, described as 10 out of 10 aching pain that is constant and worse with movement. Also has BLE pain secondary to gout for which he is on long-term steroids. Denies any fever, chills, lightheadedness, headache, visual changes, chest pain , SOB, abdominal pain, nausea, vomiting, dysuria or worsening LE swelling. Has chronic diarrhea. In ED, was found to be hypotensive with SBP fluctuating from 80s-90s. HR initially up to 150 with A Fib on EKG but decreased to ~105. No leukocytosis. Lactate elevated to 3.5 Creatinine elevated to 2.3 (baseline ~1.7). Given 1.5 L NSS and started on vanco and cefepime. Wound care attempted to debride and clean sacral wound but patient became hypotensive and hypoxic when turned. At rest, O2 saturation appropriate at 93%. Patient is a DNR. Is not interested in pressor support. Is okay with antibiotics and fluid hydration. Physical Exam (per Admitting): General Appearance: + mild distress, + obese Head: normocephalic, atraumatic Eyes: normal inspection, PERRL, sclerae normal ENT: normal ENT inspection, hearing grossly normal, pharynx normal Respiratory/Chest: chest non-tender, no respiratory distress, no accessory muscle use, + decreased breath sounds, + crackles (bibasilar crackles ), + pertinent finding (Saturating well on 2L NC at rest. Desats to 70-80s with movement ) Cardiovascular: normal peripheral pulses, + tachycardia Abdomen/GI: non tender, soft, no organomegaly Extremities/Musculoskelatal: no calf tenderness, + pertinent finding (BLE 1 + edema) Neurologic/Psych: no motor/sensory deficits, alert, normal mood/affect, oriented x 3 Skin: normal color, warm/dry, + pertinent finding (Pressure injuries to R dorsal foot, heel and fuller. L heel with discoloration. Unable to view DTI wound on sacrum due to hypoxic state ) Hospital Course 81-year-old man transferred from [facility] for worsening pain in his sacrum. He was found to have sepsis secondary to UTI and superimposed sacral wound infection and delirium 1. Sepsis secondary to UTI versus sacral wound infection-resuscitated, Initially treated with iv vanco and cefepime sacral wound cx growing mrsa and VRE Urine cx e.coli abx changed to Zyvox and cefepime continued. Remeron held as started on zyvox currently hemodynamically stable Appreciate ID inputs to complete 14 days of Zyvox. competed course for uti with cefepime sand Omnicef . stable 2. Acute delirium-Encephalopathy most likely secondary to infection versus .currently stable 3. Hypoxia 2/2 chronic respiratory failure. Cont supplemental oxygen per home regimen. stable currently. 4. Sacral wound-stage II, venous stasis ulcers on leg-wound care consult in place, OPEN WOUNDS DRESSED WITH AQUACEL AG, KERLIX AND TUBIGRIP FOR COMPRESSION as per wound care. Cx and abx as above. Appreciate ID inputs. F/u with wound care on discharge. 5. Ischemic cardiomyopathy-CHRONIC SYSTOLIC CHF currently stable.seen by Cardiology. Home meds. 6. N STEMI-type II secondary to demand ischemia secondary to sepsis. stable. 7. Chronic gout due to renal impairment-no acute flare. On chronic prednisone and chronic allopurinol. 8. Atrial fibrillation-on Coumadin and metoprolol. stable INR 2.3 . 9. CKD stage III- around baseline. 10. Diabetes mellitus type 2- On insulin sliding scale and Lantus . Will monitor 11. Hypertension-at goal,on lasix and Lopressor.LISINOPRIL AND IMDUR STARTED AT REDUCED HOME DOSE. CLOSE F/U 11. CAD-stable, status post CABG without symptoms. On statin, b leah, DVT prophylaxis-Coumadin DO NOT RESUSCITATE Disposition-pt/ot Discharge to [facility] today Total time spent on discharge = 40MINUTES This includes examination of the patient, discharge planning, medication reconciliation, and communication with other providers. Discharge Instructions Discharge Instructions Date of Service May 26, 2017. Admission Reason for Admission: Sacral Wound, Sepsis, Uti Discharge Discharge Diagnosis / Problem: SEPSIS, UTI, SACRAL WOUND Discharge Goals Goal(s): Decrease discomfort, Improve function Activity Recommendations Activity Level: Assistance Required Therapies: Physical Therapy, Occupational Therapy . Additional Information Patient informed of condition: Yes Advance Directives: Yes DNR: Yes Level of Care: Skilled Communicable Disease: No Prognosis: Stable Oxygen at (LPM): 2LTS VIA NC Reyes Catheter: No Instructions / Follow-Up Instructions / Follow-Up FOLLOWUP WITH FAMILY DOCTOR IN 4-5 DAYS FOLLOWUP WITH WOUND CLINIC SCHEDULED. FOLLOWUP WITH CARDIOLOGY IN 2-3 WEEKS. PLEASE FOLLOWUP ON COUMADIN LEVELS. DAILY WEIGHTS. MONITOR BLOOD PRESSURE LISINOPRIL AND IMDUR DOSE HAS BEEN REDUCED. CAN RESTART REMERON ONE WEEK AFTER COMPLETION OF ZYVOX COURSE. LAB: BMP WITH MG LEVELS IN ONE WEEK AND FOLLOW RESULTS WITH FAMILY DOCTOR. Current Hospital Diet Patient's current hospital diet: Diabetes Type 2 Diet Discharge Diet Recommended Diet: AHA Diet (Heart Healthy), Diabetes Type 2 Diet Pending Studies Studies pending at discharge: no Physician Orders On Transfer Special Precautions: FALL AND ASPIRATION PRECAUTIONS Vital Signs: EVERY 8HRS Additional Orders: PLEASE FOLLOWUP ON COUMADIN LEVELS. DAILY WEIGHTS. MONITOR BLOOD PRESSURE LISINOPRIL AND IMDUR DOSE HAS BEEN REDUCED. LAB: BMP WITH MG LEVELS IN ONE WEEK AND FOLLOW RESULTS WITH FAMILY DOCTOR. Laboratory Results Hemoglobin A1c Test 03/25/17 08:03 Range/Units Estimated Average Glucose 180 mg/dl Hemoglobin A1c 7.9 H 4.5-5.6 % Medical Emergencies . Who to Call and When: Medical Emergencies: If at any time you feel your situation is an emergency, please call 911 immediately. . Non-Emergent Contact Non-Emergency issues call your: Primary Care Provider
== END 2017-05-26 15:43 | DRG 871 ==
LOC: EDBD 11:45 → C.EDA 11:46 → C.2E 15:06 → UNDOADMIN 15:06 → ENRESERV 15:15 → CANRESERV 18:28 → CANBEDREQ 18:29 → ENRESERV 05-21 18:46 → C.4E 05-21 19:22
PROVIDERS: ADMIT Family Medicine; ATTEND Internal Medicine
DX: A41.9 Sepsis, unspecified organism (principal); L89.152 Pressure ulcer of sacral region, stage 2; N39.0 Urinary tract infection, site not specified; I21.A1 Myocardial infarction type 2; G93.40 Encephalopathy, unspecified; N17.9 Acute kidney failure, unspecified; I13.0 Hypertensive heart and chronic kidney disease with heart failure and stage 1 through stage 4 chronic kidney disease, or unspecified chronic kidney disease; I50.22 Chronic systolic (congestive) heart failure; J96.11 Chronic respiratory failure with hypoxia; F05 Delirium due to known physiological condition; R55 Syncope and collapse; B95.62 Methicillin resistant Staphylococcus aureus infection as the cause of diseases classified elsewhere; B96.20 Unspecified Escherichia coli [E. coli] as the cause of diseases classified elsewhere; B95.2 Enterococcus as the cause of diseases classified elsewhere; Z16.21 Resistance to vancomycin; L89.619 Pressure ulcer of right heel, unspecified stage; L89.629 Pressure ulcer of left heel, unspecified stage; I87.2 Venous insufficiency (chronic) (peripheral); Z66 Do not resuscitate; E11.22 Type 2 diabetes mellitus with diabetic chronic kidney disease; I48.2 Chronic atrial fibrillation; I25.10 Atherosclerotic heart disease of native coronary artery without angina pectoris; I25.5 Ischemic cardiomyopathy; M1A.9XX0 Chronic gout, unspecified, without tophus (tophi); N18.3 Chronic kidney disease, stage 3 (moderate); E78.5 Hyperlipidemia, unspecified; K21.9 Gastro-esophageal reflux disease without esophagitis; G47.33 Obstructive sleep apnea (adult) (pediatric); E11.42 Type 2 diabetes mellitus with diabetic polyneuropathy; E11.43 Type 2 diabetes mellitus with diabetic autonomic (poly)neuropathy; Z79.899 Other long term (current) drug therapy; Z79.01 Long term (current) use of anticoagulants; Z79.4 Long term (current) use of insulin; Z79.52 Long term (current) use of systemic steroids; Z95.1 Presence of aortocoronary bypass graft; Z83.3 Family history of diabetes mellitus

== ENCOUNTER → 2017-05-19 | Outpatient (CLI) | payer OTHER ==
[2017-05-19 08:53] LABS: INR 2.9 (0.9-1.1)
== END ==
LOC: C.LABUPNIT 07:36
PROVIDERS: ATTEND Nurse Practitioner Family
DX: I48.2 Chronic atrial fibrillation (principal)